=== PATIENT | male | born 1960 | race Caucasian/White ===

== ENCOUNTER 2019-12-15 05:49 | Outpatient (REF) | payer MEDICAID, SELFPAY ==
--- NOTE | 2019-12-15 10:44 | FL_ITS ---
EXAMINATION: XR FLUOROSCOPY WITH IMAGES CLINICAL INFORMATION: Spondylosis without myelopathy or radiculopathy. COMPARISON: None. TECHNIQUE: Fluoroscopy performed by Dr. Earnest Gardner. Fluoroscopy time: 1.6 minutes DAP: 17.1 Gycm2 Images: 6 FINDINGS: There are spinal needles overlying the outer aspect left neural foramen C2 and C3 and right neural foramen C2, C3, and C4. There is some contrast in the nerve sheaths and paraspinal soft tissues. No definite visible vascular communication. IMPRESSION: Fluoroscopy for pain management procedures.
== END 2019-12-15 05:50 | disposition home or self-care (01) ==
LOC: HO.RADIR 05:49
PROVIDERS: Visit Provider Anesthesiology
DX: M47.812 Spondylosis without myelopathy or radiculopathy, cervical region (principal)
CPT/HCPCS: 64490; 64491; J3300; Q9967

== ENCOUNTER → 2020-01-27 14:56 | Outpatient (BNVA) | payer MEDICAID, SELFPAY | PROVIDERS: PCP Internal Medicine; Visit Provider Anesthesiology | DX: M47.812 Spondylosis without myelopathy or radiculopathy, cervical region (principal); M17.0 Bilateral primary osteoarthritis of knee | CPT/HCPCS: 99212 ==

== ENCOUNTER 2020-02-04 13:12 | Outpatient (REF) | payer MEDICAID, SELFPAY ==
[2020-02-04 14:22] LABS: MANUAL DIFF FLAG NO
[2020-02-04 14:25] LABS: Basophils Absolute Auto 0.1 X10*3/uL (0.0-0.2); Basophils Percent Auto 0.8 % (0-2); Eosinophils Absolute Auto 0.3 X10*3/uL (0.0-0.4); Eosinophils Percent Auto 3.1 % (0-4); Hematocrit 42.9 % (42-52); Hemoglobin 14.5 g/dl (14.0-18.0); Imm Gran Abs Auto 0.16 X10*3/uL (0.00-0.03); Imm Gran Pct Auto 1.7 % (0.0-0.4); Lymphocytes Absolute Auto 2.2 X10*3/uL (1.2-4.9); Lymphocytes Percent Auto 22.9 % (20-40); Mean Corpuscular HGB Conc 33.8 g/dl (31.0-36.0); Mean Corpuscular Hemoglobin 32.2 pg (27.0-33.0); Mean Corpuscular Volume 95.1 fL (80-98); Mean Platelet Volume 9.5 fL (9.4-12.4); Monocytes Percent Auto 10.1 % (2-11); Neutrophils Absolute Auto 5.8 X10*3/uL (2.0-8.3); Neutrophils Percent Auto 61.4 % (45-73); Platelet Count 262 X10*3/uL (160-400); Red Blood Count 4.51 X10*6/uL (4.60-5.80); Red Cell Distribution Width 13.7 % (11.0-16.0); White Blood Count 9.4 X10*3/uL (4.8-10.8)
[2020-02-04 14:38] LABS: D Dimer < 200 NG/ML
[2020-02-04 14:52] LABS: Anion Gap 14 (12-20); Blood Urea Nitrogen 27 mg/dL (9-16); Carbon Dioxide 25 mmol/L (22-29); Chloride 104 mmol/L (96-108); Estimated Glomerular Filt Rate 49; Glucose Random 81 mg/dL (60-115); Potassium 4.7 mmol/l (3.3-5.1); Sodium 138 mmol/L (135-145)
[2020-02-04 15:16] LABS: SARS COV2 IgG Negative (Negative)
[2020-02-04 15:17] LABS: Erythrocyte Sedimentation Rate 40 MM/HR (0-15)
[2020-02-05 11:27] LABS: Immunoglobulin E 156 kU/L (<OR=114)
== END 2020-02-04 13:13 | disposition home or self-care (01) ==
LOC: HO.LAB 13:12
PROVIDERS: PCP Internal Medicine; Visit Provider Hospitalist
DX: G47.33 Obstructive sleep apnea (adult) (pediatric) (principal); R06.00 Dyspnea, unspecified; J32.9 Chronic sinusitis, unspecified; J45.909 Unspecified asthma, uncomplicated; R05 Cough
CPT/HCPCS: 36415; 80048; 82785; 85025; 85379; 85652; 86769; 99212

== ENCOUNTER → 2020-03-18 14:11 | Outpatient (BNVA) | payer MEDICAID, SELFPAY | PROVIDERS: PCP Internal Medicine Hypertension Specialist; Visit Provider Hospitalist | DX: J44.9 Chronic obstructive pulmonary disease, unspecified (principal); R05 Cough; J32.9 Chronic sinusitis, unspecified; G47.33 Obstructive sleep apnea (adult) (pediatric); Z99.89 Dependence on other enabling machines and devices | CPT/HCPCS: 99212 ==

== ENCOUNTER → 2020-04-26 14:55 | Outpatient (BNVA) | payer MEDICAID, SELFPAY | PROVIDERS: Visit Provider Internal Medicine Cardiovascular Disease | DX: E78.5 Hyperlipidemia, unspecified (principal) | CPT/HCPCS: 93005; 99212 ==

== ENCOUNTER 2020-07-27 12:40 | Outpatient (REF) | payer MEDICAID, SELFPAY ==
[2020-07-27 13:48] LABS: Hematocrit 44.3 % (42-52); Hemoglobin 14.8 g/dl (14.0-18.0); Mean Corpuscular HGB Conc 33.4 g/dl (31.0-36.0); Mean Corpuscular Hemoglobin 30.5 pg (27.0-33.0); Mean Corpuscular Volume 91.3 fL (80-98); Mean Platelet Volume 10.6 fL (9.4-12.4); Platelet Count 324 X10*3/uL (160-400); Red Blood Count 4.85 X10*6/uL (4.60-5.80); Red Cell Distribution Width 13.2 % (11.0-16.0); White Blood Count 10.9 X10*3/uL (4.8-10.8)
[2020-07-27 14:14] LABS: Estimated Average Glucose 123 mg/dL; Hemoglobin A1c % 5.9 %
[2020-07-27 14:42] LABS: Alanine Aminotransferase 72 U/L (0-40); Albumin Level 4.1 g/dL (3.5-5.0); Alkaline Phosphatase 59 U/L (39-117); Anion Gap 15 (12-20); Aspartate Amino Transferase 48 U/L (5-37); Bilirubin Total 0.9 mg/dL (0.0-1.0); Blood Urea Nitrogen 19 mg/dL (9-16); Calcium 9.7 mg/dL (8.4-10.2); Carbon Dioxide 23 mmol/L (22-29); Chloride 106 mmol/L (96-108); Cholesterol 141 mg/dL; Estimated Glomerular Filt Rate 49; Glucose Random 111 mg/dL (60-115); HDL Cholesterol 34 mg/dL; LDL Cholesterol Calculated 80 mg/dl; Potassium 4.7 mmol/L (3.3-5.1); Sodium 139 mmol/L (135-145); Total Protein 7.8 g/dL (6.5-8.0); Triglycerides 137 mg/dL
[2020-07-27 14:51] LABS: Thyroid Stimulating Hormone 0.98 uIU/mL (0.32-4.0)
[2020-07-27 15:11] LABS: Vitamin B12 > 2000 pg/mL (200-900)
== END 2020-07-27 12:41 | disposition home or self-care (01) ==
LOC: HO.LAB 12:40
PROVIDERS: Absent Provider Internal Medicine; PCP Internal Medicine; Visit Provider Internal Medicine Cardiovascular Disease
DX: I10 Essential (primary) hypertension (principal)
CPT/HCPCS: 36415; 80053; 80061; 82607; 83036; 84443; 85027

== ENCOUNTER 2020-07-29 14:08 | Outpatient (REF) | payer MEDICAID, SELFPAY ==
--- NOTE | ~2020-07-29 | XR_ITS ---
EXAMINATION: XR CHEST CLINICAL INFORMATION: Obstructive sleep apnea COMPARISON: None TECHNIQUE: The chest is imaged in frontal and 2 lateral views for a total of 3 views. FINDINGS: The lungs are clear. There is no airspace consolidation or groundglass opacity or effusion. The heart is normal in size. The vascularity is normal. The costophrenic sulci are clear. The hilar and mediastinal contours are unremarkable. There are mild degenerative changes thoracic spine. XR/XR chest 2V IMPRESSION: Lungs clear. Heart size normal. No acute intrathoracic disease.
[2020-07-29 16:49] LABS: MANUAL DIFF FLAG NO
[2020-07-29 17:05] LABS: Basophils Absolute Auto 0.1 X10*3/uL (0.0-0.2); Basophils Percent Auto 0.6 % (0-2); Eosinophils Absolute Auto 0.3 X10*3/uL (0.0-0.4); Hematocrit 44.9 % (42-52); Hemoglobin 14.7 g/dl (14.0-18.0); Imm Gran Abs Auto 0.09 X10*3/uL (0.00-0.03); Imm Gran Pct Auto 0.7 % (0.0-0.4); Lymphocytes Absolute Auto 3.2 X10*3/uL (1.2-4.9); Lymphocytes Percent Auto 25.2 % (20-40); Mean Corpuscular HGB Conc 32.7 g/dl (31.0-36.0); Mean Corpuscular Hemoglobin 30.5 pg (27.0-33.0); Mean Corpuscular Volume 93.2 fL (80-98); Mean Platelet Volume 10.8 fL (9.4-12.4); Monocytes Absolute Auto 1.1 X10*3/uL (0.1-1.2); Monocytes Percent Auto 8.5 % (2-11); Platelet Count 335 X10*3/uL (160-400); Red Blood Count 4.82 X10*6/uL (4.60-5.80); Red Cell Distribution Width 13.2 % (11.0-16.0); White Blood Count 12.7 X10*3/uL (4.8-10.8)
[2020-07-29 17:56] LABS: Erythrocyte Sedimentation Rate 46 MM/HR (0-15)
[2020-07-30 13:01] LABS: Immunoglobulin E 200 kU/L (<OR=114)
[2020-07-30 21:32] LABS: IgA 608 mg/dL (70-320); IgG 1351 mg/dL (600-1540); IgM 169 mg/dL (50-300)
== END 2020-07-29 14:09 | disposition home or self-care (01) ==
LOC: HO.XRAY 14:08
PROVIDERS: PCP Internal Medicine; Visit Provider Hospitalist
DX: J44.9 Chronic obstructive pulmonary disease, unspecified (principal); G47.33 Obstructive sleep apnea (adult) (pediatric); J32.9 Chronic sinusitis, unspecified; R05 Cough; Z99.89 Dependence on other enabling machines and devices
CPT/HCPCS: 36415; 71046; 82784; 82785; 85025; 85652; 87070; 87205; 99212

== ENCOUNTER 2020-08-15 10:57 | Outpatient (REF) | payer MEDICAID, SELFPAY ==
--- NOTE | ~2020-08-15 | US_ITS ---
EXAMINATION: US ABDOMEN COMPLETE CLINICAL INFORMATION: Abnormal findings of blood chemistry. COMPARISON: Ultrasound abdomen complete 10/11/2016. MRI abdomen 12/30/2013. Renal ultrasound 12/22/2013. TECHNIQUE: Real-time imaging of the abdominal viscera. FINDINGS: PANCREAS: Not visualized due to bowel gas ABDOMINAL AORTA: The proximal, mid, and distal segments are normal in caliber. INFERIOR VENA CAVA: Visualized portions are normal. LIVER: The liver is enlarged and echogenic probably representing fatty infiltration. The liver contour is normal. No focal hepatic lesion. There is no intrahepatic biliary duct dilatation seen. GALLBLADDER: There is adenomyomatosis of the gallbladder wall. No gallstones are seen. Gallbladder wall does not appear thickened. There is no pericholecystic fluid. COMMON BILE DUCT: Normal in caliber measuring 0.2 cm in diameter. RIGHT KIDNEY: Normal. No hydronephrosis. No renal calculi or focal parenchymal lesions. The kidney measures 11.2 cm in maximum dimension. LEFT KIDNEY: Normal. No hydronephrosis. No renal calculi or focal parenchymal lesions. The kidney measures 12.2 cm in maximum dimension. SPLEEN: Normal. The spleen measures 12.1 cm in maximum dimension. FREE FLUID: None. US/US abdomen complete IMPRESSION: Enlarged echogenic liver probably representing fatty infiltration. Adenomyomatosis of the gallbladder wall. Limited visualization of the pancreas.
== END 2020-08-15 10:58 | disposition home or self-care (01) ==
LOC: HO.US 10:57
PROVIDERS: Visit Provider Internal Medicine
DX: R79.89 Other specified abnormal findings of blood chemistry (principal)
CPT/HCPCS: 76700

== ENCOUNTER → 2020-08-18 11:02 | Outpatient (BNVA) | payer MEDICAID, SELFPAY | PROVIDERS: PCP Internal Medicine; Referring Provider Internal Medicine; Visit Provider Internal Medicine Cardiovascular Disease | DX: E78.5 Hyperlipidemia, unspecified (principal); R06.00 Dyspnea, unspecified; J44.9 Chronic obstructive pulmonary disease, unspecified; J45.901 Unspecified asthma with (acute) exacerbation; G47.33 Obstructive sleep apnea (adult) (pediatric); F17.210 Nicotine dependence, cigarettes, uncomplicated; Z99.89 Dependence on other enabling machines and devices | CPT/HCPCS: 99212 ==

== ENCOUNTER → 2020-08-30 13:12 | Outpatient (BNVA) | payer MEDICAID, SELFPAY | PROVIDERS: PCP Internal Medicine; Visit Provider Hospitalist | DX: G47.33 Obstructive sleep apnea (adult) (pediatric) (principal); J44.9 Chronic obstructive pulmonary disease, unspecified; J32.9 Chronic sinusitis, unspecified; R05 Cough; Z99.89 Dependence on other enabling machines and devices | CPT/HCPCS: 99212 ==

== ENCOUNTER 2020-10-07 13:13 | Outpatient (REF) | payer MEDICAID, SELFPAY ==
[2020-10-07 15:16] LABS: MANUAL DIFF FLAG NO
[2020-10-07 15:22] LABS: Basophils Absolute Auto 0.1 X10*3/uL (0.0-0.2); Basophils Percent Auto 0.5 % (0-2); Eosinophils Absolute Auto 0.2 X10*3/uL (0.0-0.4); Eosinophils Percent Auto 1.6 % (0-4); Hematocrit 44.5 % (42-52); Hemoglobin 14.9 g/dl (14.0-18.0); Imm Gran Abs Auto 0.05 X10*3/uL (0.00-0.03); Imm Gran Pct Auto 0.4 % (0.0-0.4); Lymphocytes Absolute Auto 2.1 X10*3/uL (1.2-4.9); Lymphocytes Percent Auto 17.1 % (20-40); Mean Corpuscular HGB Conc 33.5 g/dl (31.0-36.0); Mean Corpuscular Hemoglobin 30.2 pg (27.0-33.0); Mean Corpuscular Volume 90.3 fL (80-98); Mean Platelet Volume 10.4 fL (9.4-12.4); Monocytes Absolute Auto 1.2 X10*3/uL (0.1-1.2); Neutrophils Absolute Auto 8.6 X10*3/uL (2.0-8.3); Neutrophils Percent Auto 70.4 % (45-73); Platelet Count 280 X10*3/uL (160-400); Red Blood Count 4.93 X10*6/uL (4.60-5.80); Red Cell Distribution Width 14.1 % (11.0-16.0); White Blood Count 12.2 X10*3/uL (4.8-10.8)
[2020-10-07 16:09] LABS: Erythrocyte Sedimentation Rate 34 MM/HR (0-15)
[2020-10-10 19:16] LABS: Immunoglobulin E 172 kU/L (<OR=114)
== END 2020-10-07 13:14 | disposition home or self-care (01) ==
LOC: HO.LAB 13:13
PROVIDERS: PCP Internal Medicine; Visit Provider Hospitalist
DX: J44.9 Chronic obstructive pulmonary disease, unspecified (principal); G47.33 Obstructive sleep apnea (adult) (pediatric); F17.210 Nicotine dependence, cigarettes, uncomplicated; Z99.89 Dependence on other enabling machines and devices; J30.9 Allergic rhinitis, unspecified
CPT/HCPCS: 36415; 82785; 85025; 85652; 99212

== ENCOUNTER 2020-12-09 12:52 | Outpatient (REF) | payer MEDICAID, SELFPAY ==
[2020-12-09 14:01] LABS: MANUAL DIFF FLAG NO
[2020-12-09 14:19] LABS: Basophils Percent Auto 0.5 % (0-2); Eosinophils Absolute Auto 0.1 X10*3/uL (0.0-0.4); Eosinophils Percent Auto 1.3 % (0-4); Hematocrit 42.7 % (42-52); Hemoglobin 14.2 g/dl (14.0-18.0); Imm Gran Pct Auto 1.3 % (0.0-0.4); Lymphocytes Percent Auto 26.4 % (20-40); Mean Corpuscular HGB Conc 33.3 g/dl (31.0-36.0); Mean Corpuscular Hemoglobin 30.6 pg (27.0-33.0); Mean Platelet Volume 9.9 fL (9.4-12.4); Monocytes Absolute Auto 0.7 X10*3/uL (0.1-1.2); Monocytes Percent Auto 8.6 % (2-11); Neutrophils Absolute Auto 4.8 X10*3/uL (2.0-8.3); Neutrophils Percent Auto 61.9 % (45-73); Platelet Count 253 X10*3/uL (160-400); Red Blood Count 4.64 X10*6/uL (4.60-5.80); Red Cell Distribution Width 14.2 % (11.0-16.0); White Blood Count 7.7 X10*3/uL (4.8-10.8)
[2020-12-09 14:43] LABS: Cholesterol 203 mg/dL; HDL Cholesterol 35 mg/dL; LDL Cholesterol Calculated 140 mg/dl; Triglycerides 142 mg/dL
[2020-12-09 15:05] LABS: Erythrocyte Sedimentation Rate 40 MM/HR (0-15)
[2020-12-11 08:02] LABS: SARS COV2 IgG Negative (Negative)
[2020-12-14 20:36] LABS: Immunoglobulin G Subclass 1 856 mg/dL (382-929); Immunoglobulin G Subclass 2 159 mg/dL (241-700); Immunoglobulin G Subclass 3 57 mg/dL (22-178); Immunoglobulin G Subclass 4 31.6 mg/dL (4-86); Immunoglobulin G Total 1279 mg/dL (600-1540)
== END 2020-12-09 12:53 | disposition home or self-care (01) ==
LOC: HO.LAB 12:52
PROVIDERS: Absent Provider Internal Medicine Cardiovascular Disease; PCP Internal Medicine; Visit Provider Hospitalist
DX: Z20.822 Contact with and (suspected) exposure to COVID-19 (principal); G47.33 Obstructive sleep apnea (adult) (pediatric); J44.9 Chronic obstructive pulmonary disease, unspecified; E78.5 Hyperlipidemia, unspecified; J32.9 Chronic sinusitis, unspecified; J45.40 Moderate persistent asthma, uncomplicated; R05.9 Cough, unspecified; Z99.89 Dependence on other enabling machines and devices
CPT/HCPCS: 36415; 80061; 82784; 85025; 85210; 85652; 86769; 99212

== ENCOUNTER 2021-08-07 13:18 | Outpatient (REF) | payer MEDICAID, SELFPAY ==
[2021-08-07 14:49] LABS: Cholesterol 179 mg/dL; HDL Cholesterol 32 mg/dL; LDL Cholesterol Calculated 127 mg/dl; Triglycerides 104 mg/dL
== END 2021-08-07 13:19 | disposition home or self-care (01) ==
LOC: HO.LAB 13:18
PROVIDERS: PCP Internal Medicine; Visit Provider Internal Medicine Cardiovascular Disease
DX: E78.5 Hyperlipidemia, unspecified (principal)
CPT/HCPCS: 36415; 80061

== ENCOUNTER → 2021-11-06 11:01 | Outpatient (BNVA) | payer MEDICAID, SELFPAY | PROVIDERS: PCP Internal Medicine; Visit Provider Hospitalist | DX: G47.33 Obstructive sleep apnea (adult) (pediatric) (principal); J44.9 Chronic obstructive pulmonary disease, unspecified; J30.9 Allergic rhinitis, unspecified; R05.9 Cough, unspecified; Z79.899 Other long term (current) drug therapy; Z99.89 Dependence on other enabling machines and devices; Z23 Encounter for immunization | CPT/HCPCS: 90471; 90732; 99212 ==

== ENCOUNTER 2022-01-01 11:34 | Outpatient (REF) | payer MEDICAID, SELFPAY ==
[2022-01-01 12:13] LABS: Estimated Average Glucose 103 mg/dL; Hemoglobin A1c % 5.2 %
[2022-01-01 12:22] LABS: Cholesterol 208 mg/dL; HDL Cholesterol 43 mg/dL; LDL Cholesterol Calculated 149 mg/dl; Triglycerides 82 mg/dL
[2022-01-03 10:02] LABS: CRP High Sensitivity 2.5 mg/L
== END 2022-01-01 11:35 | disposition home or self-care (01) ==
LOC: HO.LAB 11:34
PROVIDERS: PCP Internal Medicine; Visit Provider Internal Medicine Cardiovascular Disease
DX: I25.10 Atherosclerotic heart disease of native coronary artery without angina pectoris (principal); E78.5 Hyperlipidemia, unspecified
CPT/HCPCS: 36415; 80061; 83036; 86141

== ENCOUNTER → 2022-01-08 12:24 | Outpatient (BNVA) | payer MEDICAID, SELFPAY | PROVIDERS: PCP Internal Medicine; Referring Provider Internal Medicine; Visit Provider Internal Medicine Cardiovascular Disease | DX: E78.5 Hyperlipidemia, unspecified (principal) | CPT/HCPCS: 93005; 99212 ==

== ENCOUNTER 2022-01-22 11:11 | Outpatient (REF) | payer MEDICAID, SELFPAY ==
[2022-01-22 12:14] LABS: Anion Gap 12 (12-20); Blood Urea Nitrogen 29 mg/dL (9-16); Calcium 9.2 mg/dL (8.4-10.2); Carbon Dioxide 27 mmol/L (22-29); Chloride 105 mmol/L (96-108); Estimated Glomerular Filt Rate 52; Glucose Random 92 mg/dL (60-115); Potassium 4.9 mmol/L (3.3-5.1); Sodium 139 mmol/L (135-145)
== END 2022-01-22 11:12 | disposition home or self-care (01) ==
LOC: HO.LAB 11:11
PROVIDERS: Visit Provider Internal Medicine
DX: R73.9 Hyperglycemia, unspecified (principal)
CPT/HCPCS: 36415; 80048

== ENCOUNTER 2022-03-20 15:17 | Outpatient (REF) | payer MEDICAID, SELFPAY ==
--- NOTE | ~2022-03-20 | XR_ITS ---
EXAMINATION: XR CHEST CLINICAL INFORMATION: J44.9 - Chronic obstructive pulmonary disease, unspecified COMPARISON: Chest radiographs 07/29/2020 TECHNIQUE: 2 views of the chest were obtained. FINDINGS: Subsegmental atelectasis left base adjacent to cardiac apex. Heart size normal. Vascularity normal. No lobar or segmental airspace consolidation, groundglass opacity, or effusion. The hilar and mediastinal contours are normal. No acute bony abnormality. XR/XR chest 2V IMPRESSION: Subsegmental atelectasis left base. Lungs otherwise clear.
== END 2022-03-20 15:18 | disposition home or self-care (01) ==
LOC: HO.XRAY 15:17
PROVIDERS: PCP Internal Medicine; Visit Provider Hospitalist
DX: J44.9 Chronic obstructive pulmonary disease, unspecified (principal)
CPT/HCPCS: 71046

== ENCOUNTER 2022-09-11 13:08 | Outpatient (AMB) | payer MEDICAID, SELFPAY ==
[2022-09-11 13:21] VITALS: BP 120/82; PULSE 69; TEMP 37.2; O2SAT 97; BMI 39.7
--- NOTE | 2022-09-11 13:21 | MHC.OFFVIS ---
Intake Vital Signs 09/11/22 13:21 Height 5 ft 11 in Weight 285 lb BMI 39.7 BP 120/82 Blood Pressure Location Lt brachial Position Standing Pulse 69 Pulse Source Pulse Oximeter Temp 99 F Temp Source Temporal Artery Scan Pulse Oximetry (%) 97 Oxygen Delivery Method Room Air Intake Visit Reasons: Shortness of breath Intake Note: pt is here for follow up Allergies Seasonal Allergies Allergy (Verified 03/20/22 14:11) Runny Nose HPI HPI Comments History of Present Illness Details The patient is a 62-year-old gentleman known sleep apnea currently on ASV, allergic rhinitis and also asthma. The patient does use a nasal pillow mask with a chinstrap. Therapy has been affecting beneficial. He does get supplies through his [employer] company [employer]. I will request a download from [employer] at this time. In the meantime he does complaint of a cough which is moderate severity in productive of sputum. He does have nasal congestion and does get allergy shots for allergic rhinitis. He has been using Flonase and has been helpful. He also takes Zyrtec and also had been on singular. Patient also complains of dyspnea on exertion. He does have a rescue inhaler but he does not have to use it. He was supposed to have pulmonary function studies but ultimately canceled. Will have to reschedule them prior to his next visit. I did provide him with the N30 mask that he can trial and see if is effective for him. Hopefully this with minimize irritation to the nostrils. 02/04/2020 the patient is here for pulmonary follow-up visit. The patient has been complaining of worsening cough and shortness of breath. He is very concerned with the coughing spells because they have been significant. He states that he was driving to the [facility] and he had a coughing spell had to pullman clerk and his face turn already and could not stop coughing. He is having hard time expectorating. He also complains of sinus discomfort. Denies any fevers or chills. Denies anybody with COVID-19 infection around him. He has also been complaining of right knee pain and swelling. He did see the physician and there concern for potential Dumont cyst. Has not had an ultrasound of the leg just an x-ray. In the meantime with his ongoing respiratory symptoms be reasonable just to check a D-dimer to make sure that he is not having any thromboembolic disease. The patient continues uses PAP therapy. He is tolerating it well. He uses it every night for more than 4 hours a night. The therapy has been affecting beneficial. 03/18/2020 the patient is here for pulmonary follow-up visit. He continues to complain about his cough. It is congested with mucus. Moderate severity. The respiratory medication has not been helping. Is affecting his quality of life. She also feels sinus congestion and sinus pressure. He had taking antibiotic without any significant improvement proven. He is wondering if he could try a different antibiotic at this time. He feels the mucus coming from his sinuses but also from his chest. He continues uses CPAP therapy. The CPAP therapy continues to be affecting beneficial. He does use for more than 4 hours a night. At this point will be a great candidate for Daliresp. The patient has had multiple courses of prednisone and also does have evidence of chronic bronchitis. I am hopeful that the use of Daliresp at a lower dose will be better tolerated for him without significant GI side effects. Investigate is we can slowly increase to the full dose. The patient also be treated for sinusitis. Will try to avoid prednisone. At this point the patient has been having some increased wheezing and would benefit from prednisone but hopefully with the initiation of Daliresp his need for prednisone with decreased. 07/29/2020 the patient is here for pulmonary follow-up visit. Overall his cough has improved some. Although, he still complaining of a moderately severe productive cough with white phlegm. He has been using Mucinex fxld-qyi-znosyqg with partial resolution. He continues on the allergy medicine. Continues to have significant postnasal drip. He did start Daliresp in now currently taking the full dose and tolerating it well. Previously his laboratory data demonstrated an elevated IgE level and therefore his symptoms may be allergic in nature. For the coughing is affecting his ability to use the CPAP. Therefore will maximize his therapy with azithromycin for chronic bronchitis. Will also request an Acapella valve for an additional CPT. In the office we did have him use Xopenex with hypertonic saline to see if that was more effective. Octaviano to tolerated well. We did try to send a sputum culture however it was contaminated with too much saliva. 12/09/2020 the patient is here for a pulmonary follow-up visit. Overall he is doing better. His cough seems to be better controlled on the current therapy. Seems to be responding well to the Sudafed. Does having upper airway cough syndrome. In addition to that is being treated for chronic bronchitis with the help of the Daliresp. He is also losing weight which is been helpful. We did talk about his reflux diet that is likely also affecting his cough. I emphasized the importance of him to limit the foods and drinks that could be worsening any reflux disease. In addition to that we did review his blood work demonstrating an elevated IgE. He is concerned that he could been exposed to somebody with COVID 19 so therefore I will request some blood work. I will recheck his elevated white count sedimentation rate and recheck his COVID-19 IgG. 11/06/2021 the patient is here for a pulmonary follow-up visit. Overall he is doing about the same. Continues to have a chronic productive cough. Moderate severity. Sometimes difficult to expectorate. The nebulized therapy with albuterol and hypertonic saline does help try to clear the mucus. He also uses the Neti bottle. This also helps with upper airway hygiene. In addition to that the azithromycin has been effective for him as well. He has been off it now for 4-6 months which is reassuring. However his cough is starting to get worse consistent with chronic bronchitis. His last EKG was back about year ago demonstrating normal QT interval. The patient is aware that as he goes back on the azithromycin he needs to have an EKG done and also need for him to come back for chest x-ray. He continues on the Advair with good effects. He is rinsing his mouth. He has also had a significant amount of weight loss. I did encourage for him to increase his physical activity outside of the home. In the meantime the CPAP therapy continues to be affecting beneficial. He does uses CPAP more than 4 hours a night. 09/11/2022 the patient is here for a pulmonary follow-up visit. The patient has been having hard time with sinuses for the last 3-4 weeks. He feels significant congestion and also sinus pressure. He has taken zkux-ujp-qijwvwq therapies in addition to nasal rinsing without a significant improvement. He has been on the azithromycin 3 times a week. The patient also complains of a cough secondary to the postnasal drip. His breathing otherwise has been okay as of now. The patient denies any fevers or chills. We did check his temperature today was 99 degrees. He already tested for COVID which was negative. This point the patient will be treated for sinusitis. Start with antibiotics in addition to Afrin flpl-bvs-pjhwdtv nasal spray. If he has no better he can start some prednisone. Also to note he did have chest x-ray back in 03/16/2019 demonstrating no acute lung pathology. Consider getting a sinus x-ray if he has no better. In the meantime he continues uses CPAP. CPAP therapy continues to be affecting beneficial. He does use it for more than 4 hours a night. He actually can not sleep without it. [facility] Medical History (Updated 04/03/22 @ 12:53 by Stephen Bahena MD) Asthma Asthma-COPD overlap syndrome Atelectasis Chronic allergic rhinitis Chronic cough Chronic kidney disease, stage 3 (~09/22/17) Chronic pain syndrome (~11/20/16) Cough Dyspnea Erectile dysfunction (~11/24/12) Hypercholesterolemia (~07/14/12) Hyperlipidemia Hypertension (~07/14/12) Low back pain (~07/14/12) Obstructive sleep apnea syndrome (~01/04/10) JENN on CPAP Osteoarthritis of knees, bilateral Osteoporosis (~09/20/17) Sciatica (~11/24/12) Senile hyperkeratosis (~02/21/18) Sinusitis Spondylosis of cervical joint without myelopathy Tobacco dependence syndrome (~01/13/22) Surgical History History of colonoscopy (~10/16/21) Family History Father Parkinson disease Mother Sister Obesity Hypertension Social History Household Members: Spouse Housing: House Patient Tobacco Use Status: Former Tobacco user Tobacco use type: Cigarette Cigarette Packs Per Day: 1 Years Smoked: 30 years service: No Current occupational status: unemployed Review of Systems Const Denies night sweats and Reports weight loss ENT Denies change in voice, Denies lip swelling, Denies mouth pain, Reports nasal congestion, Reports nasal discharge and Denies tongue swelling Card Denies chest pain and Reports dyspnea on exertion Resp Reports chest congestion, Reports cough and Reports dyspnea on exertion GI Denies abdominal pain Musc Reports joint swelling and Reports limited range of motion Neuro Denies Neuro-related abnormal movements Psych Denies no additional complaints Sheldon/Lymph Denies easy bleeding and Denies lymphadenopathy Aller/Immun Denies lip swelling and Denies tongue swelling Physical Exam Vital Signs: Last Vital Signs Temp 99 F 09/11/22 13:21 Pulse 69 09/11/22 13:21 BP 120/82 09/11/22 13:21 Pulse Ox 97 09/11/22 13:21 Oxygen Delivery Method Room Air 09/11/22 13:21 BMI result Body Mass Index 39.7 HEENT Head: Yes normocephalic General nose exam: Abnormal mucous membranes and turbinates present erythematous and Nasal discharge present purulent and mucoid Throat: Yes postnasal drainage and Yes cobblestoning Eyes Alignment and Position: alignment normal Pupils: Equal, round and reactive pupils present Neck Neck: Yes normal visual inspection, Yes full ROM and Yes no lymphadenopathy Chest Chest palpation & inspection: normal inspection of the chest Resp Auscultation: no wheezes and diminished lung sounds Cardio Rate: regular rate Rhythm: regular rhythm Heart sounds: S1 normal heart sound present and S2 normal heart sound present GI Palpation (GI): Soft to palpation and nontender Auscultation: normal bowel sounds Skin General skin exam: rashes and/or lesions noted Neuro Cranial nerves: Yes Equal, round and reactive pupils present Assessment & Plan Assessment & Plan (1) JENN on CPAP: Code(s): G47.33 - Obstructive sleep apnea (adult) (pediatric); Z99.89 - Dependence on other enabling machines and devices (2) Asthma-COPD overlap syndrome: Code(s): J44.9 - Chronic obstructive pulmonary disease, unspecified (3) Cough: Code(s): R05 - Cough (4) Chronic allergic rhinitis: Code(s): J30.9 - Allergic rhinitis, unspecified Plan CPT with nebulized therapy followed by hypertonic saline continue antihistamine and Singulair continue PAP therapy okay to use it without humidification reflux diet holding azithromycin MWF, will need EKG start Augmentin start Prednisone if no better Continue Dalires follow-up6 month Medications: New amoxicillin-pot clavulanate 875-125 mg 1 tab PO BID 14 days 28 tabs 0RF codeine-guaifenesin 10-100 mg/5 mL 10 mL PO Q6H 10 days PRN 300 mL 0RF cough roflumilast (Daliresp) 500 mcg PO DAILY 90 days 90 tabs 3RF prednisone PO daily; Take 2 tabs daily x 5 days, then 1 tablet daily x 5 days 10 days 15 tabs 0RF Refilled albuterol sulfate 2.5 mg (3 mL) inhalation Q4H 90 days PRN 540 mL 3RF shortness of breath or wheezing Coding Level of Care Code Est Pt Level 4 (54382) Diagnoses JENN on CPAP G47.33; Z99.89 Asthma-COPD overlap syndrome J44.9 Cough R05 Chronic allergic rhinitis J30.9 Time Spent (min) 19
== END 2022-09-11 13:48 | disposition home or self-care (01) ==
PROVIDERS: PCP Family Medicine; Visit Provider Hospitalist
DX: G47.33 Obstructive sleep apnea (adult) (pediatric) (principal); Z99.89 Dependence on other enabling machines and devices; J44.9 Chronic obstructive pulmonary disease, unspecified; J30.9 Allergic rhinitis, unspecified
CPT/HCPCS: 99214

== ENCOUNTER → 2022-09-11 13:08 | Outpatient (BNVA) | payer MEDICAID, SELFPAY | PROVIDERS: Visit Provider Hospitalist | DX: J44.9 Chronic obstructive pulmonary disease, unspecified (principal); J30.9 Allergic rhinitis, unspecified; R06.02 Shortness of breath; R05.9 Cough, unspecified; G47.33 Obstructive sleep apnea (adult) (pediatric); Z99.89 Dependence on other enabling machines and devices | CPT/HCPCS: 99212 ==

== ENCOUNTER 2022-10-09 12:01 | Outpatient (REF) | payer MEDICAID, SELFPAY ==
[2022-10-09 15:32] LABS: Anion Gap 15 (12-20); Blood Urea Nitrogen 24 mg/dL (9-16); Calcium 9.5 mg/dL (8.4-10.2); Carbon Dioxide 26 mmol/L (22-29); Chloride 106 mmol/L (96-108); Estimated Glomerular Filt Rate 47; Glucose Random 82 mg/dL (60-115); Potassium 4.6 mmol/L (3.3-5.1); Sodium 142 mmol/L (135-145)
[2022-10-09 15:36] LABS: Thyroid Stimulating Hormone 2.25 uIU/mL (0.32-4.0)
[2022-10-10 03:46] LABS: HBS Num1 0.41 mIU/mL (0-7.99); HBc Num1 0.05 S/CO (0.00-0.79); HBsAGNum1 0.36 S/CO (0.00-0.99); Hepatitis B Core Antibody Nonreactive (Nonreactive); Hepatitis B Surface Antigen Negative (Negative); ~Hepatitis B Surface Antibody NONREACTIVE (Nonreactive)
== END 2022-10-09 12:02 | disposition home or self-care (01) ==
LOC: HO.CHCLNP 12:01
PROVIDERS: Visit Provider Internal Medicine
DX: Z01.818 Encounter for other preprocedural examination (principal); Z13.89 Encounter for screening for other disorder
CPT/HCPCS: 36415; 80048; 84443; 86704; 86706; 87340

== ENCOUNTER 2022-12-13 14:15 | Outpatient (REF) | payer MEDICAID, SELFPAY ==
[2022-12-13 17:48] LABS: Hemoglobin 14.9 g/dl (14.0-18.0); Mean Corpuscular HGB Conc 33.1 g/dl (31.0-36.0); Mean Corpuscular Volume 96.8 fL (80.0-98.0); Mean Platelet Volume 10.3 fL (9.4-12.4); Platelet Count 302 X10*3/uL (160-400); Red Blood Count 4.65 X10*6/uL (4.60-5.80); Red Cell Distribution Width 13.9 % (11.0-16.0)
[2022-12-13 18:03] LABS: Alanine Aminotransferase 53 U/L (0-40); Albumin Level 3.7 g/dL (3.5-5.0); Alkaline Phosphatase 61 U/L (39-117); Aspartate Amino Transferase 26 U/L (5-37); Bilirubin Direct 0.3 mg/dL (0.0-0.5); Bilirubin Total 0.9 mg/dL (0.0-1.0); Total Protein 7.5 g/dL (6.5-8.0)
[2022-12-13 18:09] LABS: Band Neutrophils Percent 1 % (3-5); Eosinophils Absolute Manual 0.3 X10*3/uL (0.0-0.4); Eosinophils Percent Manual 3 % (0-4); Lymphocytes Absolute Manual 2.3 X10*3/uL (1.2-4.9); Lymphocytes Percent Manual 21 % (20-40); Monocytes Absolute Manual 1.3 X10*3/uL (0.1-1.2); Monocytes Percent Manual 12 % (2-11); Neutrophils Percent Manual 63 % (45-73)
[2022-12-13 18:11] LABS: Platelet Estimate NORMAL (NORMAL); Platelet Morphology Comment NORMAL; RBC Morphology NORMAL
== END 2022-12-13 14:16 | disposition home or self-care (01) ==
LOC: HO.CHCLDS 14:15
PROVIDERS: Visit Provider Internal Medicine
DX: Z01.818 Encounter for other preprocedural examination (principal)
CPT/HCPCS: 36415; 80076; 85007; 85027

== ENCOUNTER 2023-05-17 12:55 | Outpatient (AMB) | payer MEDICARE, SELFPAY ==
--- NOTE | 2023-05-17 13:08 | MHC.OFFVIS ---
Intake Vital Signs 05/17/23 13:09 Height 5 ft 11 in Weight 264 lb 8.875 oz BMI 36.9 BP 122/82 Blood Pressure Location Lt brachial Position Sitting Pulse 70 Pulse Source Pulse Oximeter Pulse Oximetry (%) 98 Oxygen Delivery Method Room Air Intake Visit Reasons: Obstructive sleep apnea Tobacco Prevention Health Educator Required: No Allergies Seasonal Allergies Allergy (Verified 05/17/23 13:12) Runny Nose HPI HPI Comments History of Present Illness Details The patient is a 63-year-old gentleman known sleep apnea currently on ASV, allergic rhinitis and also asthma. The patient does use a nasal pillow mask with a chinstrap. Therapy has been affecting beneficial. He does get supplies through his [employer] company [employer]. I will request a download from [employer] at this time. In the meantime he does complaint of a cough which is moderate severity in productive of sputum. He does have nasal congestion and does get allergy shots for allergic rhinitis. He has been using Flonase and has been helpful. He also takes Zyrtec and also had been on singular. Patient also complains of dyspnea on exertion. He does have a rescue inhaler but he does not have to use it. He was supposed to have pulmonary function studies but ultimately canceled. Will have to reschedule them prior to his next visit. I did provide him with the N30 mask that he can trial and see if is effective for him. Hopefully this with minimize irritation to the nostrils. 09/11/2022 the patient is here for a pulmonary follow-up visit. The patient has been having hard time with sinuses for the last 3-4 weeks. He feels significant congestion and also sinus pressure. He has taken uqdj-vqj-kbynfhm therapies in addition to nasal rinsing without a significant improvement. He has been on the azithromycin 3 times a week. The patient also complains of a cough secondary to the postnasal drip. His breathing otherwise has been okay as of now. The patient denies any fevers or chills. We did check his temperature today was 99 degrees. He already tested for COVID which was negative. This point the patient will be treated for sinusitis. Start with antibiotics in addition to Afrin gfdf-uhc-jlusjas nasal spray. If he has no better he can start some prednisone. Also to note he did have chest x-ray back in 03/16/2019 demonstrating no acute lung pathology. Consider getting a sinus x-ray if he has no better. In the meantime he continues uses CPAP. CPAP therapy continues to be affecting beneficial. He does use it for more than 4 hours a night. He actually can not sleep without it. 05/17/2023 the patient is here for a pulmonary follow-up visit. He has multiple complaints. Again complaining of no sinus congestion and pressure. Second sinusitis is coming back. He typically responds well to Augmentin. He knows to stop the azithromycin if he is going to take Augmentin. The patient will need to call the office her see ENT if he continues to have persistent sinusitis issues. in the meantime the patient complains of extremity weakness. Denies any muscle pains. Just feels weak having some difficulty even getting up from the toilet. The patient also had a fall landing on his left side. He does have some pleuritic left-sided discomfort. He will have a rib series. He will be talking to his primary care doctor soon About his weakness and fall.. He does take statins. Will go ahead and check a CPK specially since going to get blood work but he needs to follow-up with his primary care doctor and should benefit from referral to physiatry Neurology. He will talk to his primary care doctor about that. Regards to the CPAP that continues to be affecting beneficial. He continues use it every night for more than 4 hours a night. [facility] Medical History (Updated 05/19/23 @ 22:50 by Stephen Bahena MD) Weakness Chest pain Atelectasis Tobacco dependence syndrome (~01/13/22) Senile hyperkeratosis (~02/21/18) Sciatica (~11/24/12) Osteoporosis (~09/20/17) Obstructive sleep apnea syndrome (~01/04/10) Low back pain (~07/14/12) Hypertension (~07/14/12) Erectile dysfunction (~11/24/12) Hypercholesterolemia (~07/14/12) Chronic kidney disease, stage 3 (~09/22/17) Chronic pain syndrome (~11/20/16) Chronic cough Chronic allergic rhinitis Hyperlipidemia JENN on CPAP Asthma-COPD overlap syndrome Dyspnea Cough Asthma Sinusitis Osteoarthritis of knees, bilateral Spondylosis of cervical joint without myelopathy Surgical History History of colonoscopy (~10/16/21) Family History Father Parkinson disease Mother Sister Obesity Hypertension Social History Household Members: Spouse Housing: House Patient Tobacco Use Status: Former Tobacco user Tobacco use type: Cigarette Cigarette Packs Per Day: 1 Years Smoked: 30 years service: No Current occupational status: unemployed Review of Systems Const Denies night sweats and Reports weight loss ENT Denies change in voice, Denies lip swelling, Denies mouth pain, Reports nasal congestion, Reports nasal discharge, Reports sinus pain, Reports sinus pressure and Denies tongue swelling Card Reports dyspnea on exertion Resp Reports chest congestion, Reports cough, Reports pain on inspiration, Reports pain with cough and Reports dyspnea on exertion GI Denies abdominal pain Musc Reports abnormal gait, Reports joint swelling, Reports limited range of motion and Reports muscle weakness Neuro Denies Neuro-related abnormal movements and Reports abnormal gait Psych Denies no additional complaints Sheldon/Lymph Denies easy bleeding and Denies lymphadenopathy Aller/Immun Denies lip swelling and Denies tongue swelling Physical Exam Vital Signs: Last Vital Signs Pulse 70 05/17/23 13:09 BP 122/82 05/17/23 13:09 Pulse Ox 98 05/17/23 13:09 Oxygen Delivery Method Room Air 05/17/23 13:09 BMI result Body Mass Index 36.9 HEENT Head: Yes normocephalic General nose exam: Abnormal mucous membranes and turbinates present erythematous and Nasal discharge present purulent and mucoid Throat: Yes postnasal drainage and Yes cobblestoning Eyes Alignment and Position: alignment normal Pupils: Equal, round and reactive pupils present Neck Neck: Yes normal visual inspection, Yes full ROM and Yes no lymphadenopathy Chest Chest palpation & inspection: no crepitus and tenderness rib (left lower chest) Resp Auscultation: no wheezes and diminished lung sounds Cardio Rate: regular rate Rhythm: regular rhythm Heart sounds: S1 normal heart sound present and S2 normal heart sound present GI Palpation (GI): Soft to palpation and nontender Auscultation: normal bowel sounds Skin General skin exam: rashes and/or lesions noted Neuro Cranial nerves: Yes Equal, round and reactive pupils present Assessment & Plan Assessment & Plan (1) JENN on CPAP: Code(s): G47.33 - Obstructive sleep apnea (adult) (pediatric); Z99.89 - Dependence on other enabling machines and devices (2) Asthma-COPD overlap syndrome: Code(s): J44.9 - Chronic obstructive pulmonary disease, unspecified (3) Cough: Code(s): R05 - Cough Qualifiers: Cough type: chronic Qualified Code(s): R05.3 - Chronic cough (4) Chronic allergic rhinitis: Code(s): J30.9 - Allergic rhinitis, unspecified (5) Weakness: Code(s): R53.1 - Weakness (6) Sinusitis: Code(s): J32.9 - Chronic sinusitis, unspecified Qualifiers: Sinusitis location: unspecified location Chronicity: subacute Qualified Code(s): J01.90 - Acute sinusitis, unspecified (7) Chest pain: Comment: post fall on his left side Code(s): R07.9 - Chest pain, unspecified Qualifiers: Chest pain type: intercostal pain Qualified Code(s): R07.82 - Intercostal pain Plan CPT with nebulized therapy followed by hypertonic saline continue antihistamine and Singulair continue PAP therapy okay to use it without humidification reflux diet holding azithromycin MWF, will need EKG Continue Dalires follow-up6 month Orders: Orders CK, Total+Isoenzymes, Serum 05/17/23 R53.1 - Weakness XR ribs LT min 3V w CXR1V 05/17/23 R07.9 - Chest pain, unspecified Erythrocyte Sedimentation Rate 05/17/23 R07.9 - Chest pain, unspecified Medications: New amoxicillin-pot clavulanate 875-125 mg 1 tab PO BID 14 days 28 tabs 0RF amoxicillin-pot clavulanate 875-125 mg 1 tab PO BID 14 days 28 tabs 0RF Refilled codeine-guaifenesin 10-100 mg/5 mL 10 mL PO Q6H 10 days PRN 300 mL 0RF cough Coding Level of Care Code Est Pt Level 4 (61862) Diagnoses JENN on CPAP G47.33; Z99.89 Asthma-COPD overlap syndrome J44.9 Chronic cough R05.3 Cough type: chronic Chronic allergic rhinitis J30.9 Weakness R53.1 Subacute sinusitis, unspecified location J01.90 Sinusitis location: unspecified location Chronicity: subacute Intercostal pain R07.82 Chest pain type: intercostal pain Time Spent (min) 17
[2023-05-17 13:09] VITALS: BP 122/82; PULSE 70; O2SAT 98; BMI 36.9
== END 2023-05-17 13:36 | disposition home or self-care (01) ==
PROVIDERS: PCP Family Medicine; Visit Provider Hospitalist
DX: G47.33 Obstructive sleep apnea (adult) (pediatric) (principal); Z99.89 Dependence on other enabling machines and devices; J44.9 Chronic obstructive pulmonary disease, unspecified; R05.3 Chronic cough; J30.9 Allergic rhinitis, unspecified; R53.1 Weakness; J01.90 Acute sinusitis, unspecified; R07.82 Intercostal pain
CPT/HCPCS: 99214

== ENCOUNTER 2023-05-17 12:55 | Outpatient (REF) | payer MEDICARE, SELFPAY ==
[2023-05-17 14:12] LABS: MANUAL DIFF FLAG NO
[2023-05-17 15:12] LABS: Basophils Percent Auto 0.3 % (0-2); Eosinophils Absolute Auto 0.2 X10*3/uL (0.0-0.4); Eosinophils Percent Auto 2.2 % (0-4); Hemoglobin 15.5 g/dl (14.0-18.0); Imm Gran Abs Auto 0.22 X10*3/uL (0.00-0.03); Imm Gran Pct Auto 2.2 % (0.0-0.4); Mean Corpuscular Hemoglobin 31.5 pg (27.0-33.0); Mean Corpuscular Volume 95.5 fL (80.0-98.0); Mean Platelet Volume 9.9 fL (9.4-12.4); Monocytes Absolute Auto 0.8 X10*3/uL (0.1-1.2); Monocytes Percent Auto 8.2 % (2-11); Neutrophils Absolute Auto 6.7 x10*3/uL (2.0-8.3); Neutrophils Percent Auto 67.1 % (45-73); Platelet Count 224 X10*3/uL (160-400); Red Blood Count 4.92 X10*6/uL (4.60-5.80); Red Cell Distribution Width 13.5 % (11.0-16.0)
[2023-05-17 15:24] LABS: Appearance Urine Clear; Color Urine Yellow; Glucose Urine UA Negative (Negative); Leukocyte Esterase Urine Negative (Negative); Nitrite Urine Negative (Negative); PH 5.5 (5.0-9.0); Urine Blood Negative (Negative); Urine Ketones Negative (Negative); Urine Protein Trace mg/dL (Neg-Trace)
[2023-05-17 15:55] LABS: Alanine Aminotransferase 42 U/L (0-40); Albumin Level 3.7 g/dL (3.5-5.0); Alkaline Phosphatase 76 U/L (39-117); Anion Gap 13 (12-20); Aspartate Amino Transferase 18 U/L (5-37); Bilirubin Total 0.6 mg/dL (0.0-1.0); Blood Urea Nitrogen 17 mg/dL (9-16); Calcium 9.5 mg/dL (8.4-10.2); Carbon Dioxide 26 mmol/L (22-29); Chloride 108 mmol/L (96-108); Estimated Glomerular Filt Rate 59; Glucose Random 73 mg/dL (60-115); Potassium 4.8 mmol/L (3.3-5.1); Sodium 142 mmol/L (135-145); Total Protein 7.1 g/dL (6.5-8.0)
[2023-05-17 16:01] LABS: Creatinine Urine 170.22 mg/dL; Total Protein Urine Random 19 mg/dL (<12)
[2023-05-17 16:18] LABS: Erythrocyte Sedimentation Rate 20 MM/HR (0-15); Prostate Specific Antigen 0.31 ng/mL (<0.05-4.0)
[2023-05-21 19:09] LABS: CK-BB None Detected (None Detected); CK-MB 0 % (<5); CK-MM 100 % (95-100); Creatine Kinase,Total,Serum 16 U/L (44-196)
== END 2023-05-17 12:56 | disposition home or self-care (01) ==
LOC: HO.LAB 12:55
PROVIDERS: Internal Medicine Hypertension Specialist; PCP Internal Medicine; Visit Provider Hospitalist
DX: N40.1 Benign prostatic hyperplasia with lower urinary tract symptoms (principal); R39.12 Poor urinary stream; I10 Essential (primary) hypertension; G47.33 Obstructive sleep apnea (adult) (pediatric); J44.9 Chronic obstructive pulmonary disease, unspecified; R05.3 Chronic cough; R53.1 Weakness; J32.9 Chronic sinusitis, unspecified; J01.90 Acute sinusitis, unspecified; J30.9 Allergic rhinitis, unspecified; R07.82 Intercostal pain; Z12.5 Encounter for screening for malignant neoplasm of prostate; Z79.899 Other long term (current) drug therapy
CPT/HCPCS: 36415; 80053; 81003; 82552; 82570; 84153; 84156; 85025; 85652; 99212

== ENCOUNTER 2023-06-05 11:41 | Outpatient (AMB) | payer MEDICARE, SELFPAY ==
[2023-06-05 11:42] VITALS: BP 132/80; PULSE 73; O2SAT 97; BMI 37.4
--- NOTE | 2023-06-05 11:42 | HO.NEPHOV_ITS ---
HPI HPI Comments History of Present Illness Details Henri is a middle-aged man with history of obesity hypertension and mild CKD. He is complaining of generalized weakness in the muscles. He is undergoing physical therapy without much improvement. He has been receiving steroid injections for the bursitis. He also has ecchymosis in both upper extremities. Seen by Hematology and Oncology in the past and no significant pathology was documented. [facility] Medical History (Updated 05/19/23 @ 22:50 by Stephen Bahena MD) Weakness Chest pain Atelectasis Tobacco dependence syndrome (~01/13/22) Senile hyperkeratosis (~02/21/18) Sciatica (~11/24/12) Osteoporosis (~09/20/17) Obstructive sleep apnea syndrome (~01/04/10) Low back pain (~07/14/12) Hypertension (~07/14/12) Erectile dysfunction (~11/24/12) Hypercholesterolemia (~07/14/12) Chronic kidney disease, stage 3 (~09/22/17) Chronic pain syndrome (~11/20/16) Chronic cough Chronic allergic rhinitis Hyperlipidemia JENN on CPAP Asthma-COPD overlap syndrome Dyspnea Cough Asthma Sinusitis Osteoarthritis of knees, bilateral Spondylosis of cervical joint without myelopathy Surgical History History of colonoscopy (~10/16/21) Family History Father Parkinson disease Mother Sister Obesity Hypertension Social History Household Members: Spouse Housing: House Patient Tobacco Use Status: Former Tobacco user Tobacco use type: Cigarette Cigarette Packs Per Day: 1 Years Smoked: 30 years service: No Current occupational status: unemployed Vital Signs 06/05/23 11:42 Height 5 ft 11 in Weight 268 lb BMI 37.4 BP 132/80 Blood Pressure Location Lt brachial Position Sitting Pulse 73 Pulse Source Pulse Oximeter Pulse Oximetry (%) 97 Oxygen Delivery Method Room Air Physical Exam Vital Signs: Last Vital Signs Pulse 73 06/05/23 11:42 BP 132/80 06/05/23 11:42 Pulse Ox 97 06/05/23 11:42 Oxygen Delivery Method Room Air 06/05/23 11:42 BMI result Body Mass Index 37.4 Const General: comfortable Nutritional Appearance: well nourished Orientation/consciousness: patient oriented x3 HEENT Head: No normal to inspection Mouth: moist mucous membranes Neck Neck: Yes supple and Yes no JVD Resp Auscultation: clear to auscultation bilaterally, no rales and rub present Cardio Jugular venous distension: no JVD Palpation: no palpable S3 and no palpable S4 Heart sounds: no rubs GI Palpation (GI): Soft to palpation and nontender Percussion: No Fluid wave present General: Yes no CVA tenderness Back/Spine/Pelvis Back: no CVA tenderness Skin General skin exam: ecchymosis Neuro General: patient oriented x3 Extrem General: Yes no pedal edema and No clubbing Assessment & Plan Assessment & Plan (1) Hypertension: Onset Date: ~07/14/12 Code(s): I10 - Essential (primary) hypertension Plan: Blood pressure well controlled Stay on low-sodium diet Needs weight loss. (2) Weakness: Code(s): R53.1 - Weakness Plan: Etiology is unclear. Dyspnea related to use of statins. Other possibility includes steroid myopathy from frequent steroid injections. I have asked him to stop the statins for 2-3 weeks and see the improvement in the weakness. If there is no weakness I would refer him to Neurology for further evaluation Orders: Orders Basic Metabolic Panel 3 Months I10 - Essential (primary) hypertension, R53.1 - Weakness Neutrophil Cytoplasma Ab 3 Months I10 - Essential (primary) hypertension, R53.1 - Weakness Complement C3 3 Months I10 - Essential (primary) hypertension, R53.1 - Weakness Testosterone, Free/Total 3 Months I10 - Essential (primary) hypertension, R53.1 - Weakness Hemoglobin A1c 3 Months I10 - Essential (primary) hypertension, R53.1 - Weakness Comprehensive Met. Panel 3 Months I10 - Essential (primary) hypertension, N18.9 - Chronic kidney disease, unspecified, R53.1 - Weakness Lipid Panel 3 Months I10 - Essential (primary) hypertension, R53.1 - Weakness Myeloperoxidase Antibody 3 Months I10 - Essential (primary) hypertension, R53.1 - Weakness Proteinase 3 PR3 Antibodies 3 Months I10 - Essential (primary) hypertension, R53.1 - Weakness Complement C4 3 Months I10 - Essential (primary) hypertension, R53.1 - Weakness Medications: New amlodipine 5 mg PO DAILY 90 tabs 2RF ondansetron HCl 4 mg PO DAILY PRN 30 tabs 1RF nausea and vomiting Coding Level of Care Code Est Pt Level 4 (73347) Diagnoses Hypertension I10 Weakness R53.1 Results Reviewed Nephrology Results: Hgb 15.5 g/dl (14.0-18.0) 05/17/23 WBC 10.0 X10*3/uL (4.8-10.8) 05/17/23 Plt Count 224 X10*3/uL (160-400) 05/17/23 Sodium 142 mmol/L (135-145) 05/17/23 Potassium 4.8 mmol/L (3.3-5.1) 05/17/23 Chloride 108 mmol/L (96-108) 05/17/23 Carbon Dioxide 26 mmol/L (22-29) 05/17/23 BUN 17 mg/dL (9-16) H 05/17/23 Creatinine 1.23 mg/dL (0.5-1.4) 05/17/23 Calcium 9.5 mg/dL (8.4-10.2) 05/17/23 Urine Protein Trace mg/dL (Neg-Trace) 05/17/23 Urine Creatinine 170.22 mg/dL 05/17/23
== END 2023-06-05 12:32 | disposition home or self-care (01) ==
PROVIDERS: PCP Family Medicine; Visit Provider Internal Medicine Hypertension Specialist
DX: I10 Essential (primary) hypertension (principal); R53.1 Weakness
CPT/HCPCS: 99214

== ENCOUNTER → 2023-06-05 11:41 | Outpatient (BNVA) | payer MEDICARE, SELFPAY | PROVIDERS: PCP Family Medicine; Visit Provider Internal Medicine Hypertension Specialist | DX: I10 Essential (primary) hypertension (principal); R35.1 Nocturia | CPT/HCPCS: 99212 ==

== ENCOUNTER 2023-08-20 16:06 | Outpatient (REF) | payer MEDICARE, SELFPAY ==
[2023-08-20 18:01] LABS: MANUAL DIFF FLAG NO
[2023-08-20 18:47] LABS: Anion Gap 15 (12-20); Blood Urea Nitrogen 19 mg/dL (9-16); Calcium 9.7 mg/dL (8.4-10.2); Carbon Dioxide 21 mmol/L (22-29); Chloride 107 mmol/L (96-108); Estimated Glomerular Filt Rate 54; Glucose Random 81 mg/dL (60-115); Potassium 3.5 mmol/L (3.3-5.1); Sodium 139 mmol/L (135-145)
[2023-08-20 18:48] LABS: Basophils Absolute Auto 0.1 X10*3/uL (0.0-0.2); Basophils Percent Auto 0.6 % (0-2); Eosinophils Absolute Auto 0.6 X10*3/uL (0.0-0.4); Hematocrit 46.3 % (42.0-52.0); Hemoglobin 16.2 g/dl (14.0-18.0); Imm Gran Abs Auto 0.21 X10*3/uL (0.00-0.03); Imm Gran Pct Auto 1.8 % (0.0-0.4); Lymphocytes Percent Auto 17.4 % (20-40); Mean Corpuscular Hemoglobin 32.5 pg (27.0-33.0); Mean Corpuscular Volume 92.8 fL (80.0-98.0); Mean Platelet Volume 10.5 fL (9.4-12.4); Monocytes Absolute Auto 1.2 X10*3/uL (0.1-1.2); Monocytes Percent Auto 10.7 % (2-11); Neutrophils Absolute Auto 7.4 x10*3/uL (2.0-8.3); Neutrophils Percent Auto 64.5 % (45-73); Platelet Count 309 X10*3/uL (160-400); Red Blood Count 4.99 X10*6/uL (4.60-5.80); Red Cell Distribution Width 13.3 % (11.0-16.0); White Blood Count 11.5 X10*3/uL (4.8-10.8)
== END 2023-08-20 16:07 | disposition home or self-care (01) ==
LOC: HO.CHCLDS 16:06
PROVIDERS: Visit Provider Internal Medicine
DX: R10.32 Left lower quadrant pain (principal)
CPT/HCPCS: 36415; 80048; 85025

== ENCOUNTER 2023-09-03 14:05 | Outpatient (REF) | payer MEDICARE, SELFPAY ==
[2023-09-03 18:00] LABS: Potassium 3.9 mmol/L (3.3-5.1)
[2023-09-07 18:59] LABS: Testosterone, Free 36.2 pg/mL (35.0-155.0); Testosterone, Total 426 ng/dL (250-1100)
== END 2023-09-03 14:06 | disposition home or self-care (01) ==
LOC: HO.CHCLDS 14:05
PROVIDERS: Visit Provider Internal Medicine
DX: N52.8 Other male erectile dysfunction (principal); E87.5 Hyperkalemia
CPT/HCPCS: 36415; 84132; 84402; 84403

== ENCOUNTER 2023-12-20 12:36 | Outpatient (REF) | payer MEDICARE, SELFPAY ==
--- NOTE | ~2023-12-20 | XR_ITS ---
EXAMINATION: XR CHEST CLINICAL INFORMATION: Bronchitis COMPARISON: X-ray dated March 20, 2022 TECHNIQUE: 2 views of the chest were obtained. FINDINGS: No consolidation, pleural effusion or pneumothorax. Cardiomediastinal silhouette demonstrates normal size. Multilevel thoracic spondylosis, mild. XR/XR chest 2V IMPRESSION: No acute airspace disease. Electronically signed by: Easton Arthur MD 12/20/2023 02:17 PM EDT
== END 2023-12-20 12:37 | disposition home or self-care (01) ==
LOC: HO.XRAY 12:36
PROVIDERS: PCP Internal Medicine; Visit Provider Hospitalist
DX: R53.1 Weakness (principal); R07.9 Chest pain, unspecified; J40 Bronchitis, not specified as acute or chronic; G47.33 Obstructive sleep apnea (adult) (pediatric); Z99.89 Dependence on other enabling machines and devices; R05.3 Chronic cough
CPT/HCPCS: 71046; 99212

== ENCOUNTER 2023-12-20 12:36 | Outpatient (AMB) | payer MEDICARE, SELFPAY ==
--- NOTE | 2023-12-20 12:56 | A.OFFVIS_ITS ---
Vital Signs 12/20/23 13:00 Height 5 ft 11 in Weight 256 lb BMI 35.7 BP 136/78 Blood Pressure Location Lt brachial Position Sitting Pulse 77 Pulse Source Pulse Oximeter Pulse Oximetry (%) 97 Oxygen Delivery Method Room Air Intake Visit Reasons: Obstructive sleep apnea Medical Collections Specialist Required: No Allergies Seasonal Allergies Allergy (Verified 12/20/23 12:56) Runny Nose HPI Comments Details: The patient is a 63-year-old gentleman known sleep apnea currently on ASV, allergic rhinitis and also asthma. The patient does use a nasal pillow mask with a chinstrap. Therapy has been affecting beneficial. He does get supplies through his [employer] company [employer]. I will request a download from [employer] at this time. In the meantime he does complaint of a cough which is moderate severity in productive of sputum. He does have nasal congestion and does get allergy shots for allergic rhinitis. He has been using Flonase and has been helpful. He also takes Zyrtec and also had been on singular. Patient also complains of dyspnea on exertion. He does have a rescue inhaler but he does not have to use it. He was supposed to have pulmonary function studies but ultimately canceled. Will have to reschedule them prior to his next visit. I did provide him with the N30 mask that he can trial and see if is effective for him. Hopefully this with minimize irritation to the nostrils. 09/11/2022 the patient is here for a pulmonary follow-up visit. The patient has been having hard time with sinuses for the last 3-4 weeks. He feels significant congestion and also sinus pressure. He has taken [id number]-[id number] therapies in addition to nasal rinsing without a significant improvement. He has been on the azithromycin 3 times a week. The patient also complains of a cough secondary to the postnasal drip. His breathing otherwise has been okay as of now. The patient denies any fevers or chills. We did check his temperature today was 99 degrees. He already tested for COVID which was negative. This point the patient will be treated for sinusitis. Start with antibiotics in addition to Afrin mzul-rfi-eblvoua nasal spray. If he has no better he can start some prednisone. Also to note he did have chest x-ray back in 03/16/2019 demonstrating no acute lung pathology. Consider getting a sinus x-ray if he has no better. In the meantime he continues uses CPAP. CPAP therapy continues to be affecting beneficial. He does use it for more than 4 hours a night. He actually can not sleep without it. 05/17/2023 the patient is here for a pulmonary follow-up visit. He has multiple complaints. Again complaining of no sinus congestion and pressure. Second sinusitis is coming back. He typically responds well to Augmentin. He knows to stop the azithromycin if he is going to take Augmentin. The patient will need to call the office her see ENT if he continues to have persistent sinusitis issues. in the meantime the patient complains of extremity weakness. Denies any muscle pains. Just feels weak having some difficulty even getting up from the toilet. The patient also had a fall landing on his left side. He does have some pleuritic left-sided discomfort. He will have a rib series. He will be talking to his primary care doctor soon About his weakness and fall.. He does take statins. Will go ahead and check a CPK specially since going to get blood work but he needs to follow-up with his primary care doctor and should benefit from referral to physiatry Neurology. He will talk to his primary care doctor about that. Regards to the CPAP that continues to be affecting beneficial. He continues use it every night for more than 4 hours a night. 12/20/2023 the patient is here for a pulmonary follow-up visit. He complaining of worsening cough. It is productive in nature. Moderate severity. He has been waking up also worse of times of the night coughing. He is using a towel to try to clear secretions. The patient is having some coughing episodes while using his I AVAP. He did bring it in. Is not find the humidity of the temperature. Appears that he just has significant nasal congestion. He also has inflammation of the nasopharynx and also of the posterior pharynx. Also having some chest congestion. He will have a chest x-ray today. The patient is no better after the Augmentin he will provide us with a sputum culture. In the meantime the patient will continue with his current AVAP setting. His AHI is down to 1 therefore I suggested that they keep the current pressures. Although I believe with a high pressures through the AVAPS he is better off with a fullface mask. Although he likes the nasal pillows. I would encourage him to try a fullface mask future. [facility] Medical History (Updated 12/20/23 @ 13:06 by Stephen Bahena MD) Bronchitis Weakness Chest pain Atelectasis Tobacco dependence syndrome (~01/13/22) Senile hyperkeratosis (~02/21/18) Sciatica (~11/24/12) Osteoporosis (~09/20/17) Obstructive sleep apnea syndrome (~01/04/10) Low back pain (~07/14/12) Hypertension (~07/14/12) Erectile dysfunction (~11/24/12) Hypercholesterolemia (~07/14/12) Chronic kidney disease, stage 3 (~09/22/17) Chronic pain syndrome (~11/20/16) Chronic cough Chronic allergic rhinitis Hyperlipidemia JENN on CPAP Asthma-COPD overlap syndrome Dyspnea Cough Asthma Sinusitis Osteoarthritis of knees, bilateral Spondylosis of cervical joint without myelopathy Surgical History History of colonoscopy (~10/16/21) Family History Father Parkinson disease Mother Sister Obesity Hypertension Social History Household Members: Spouse Housing: House Patient Tobacco Use Status: Former Tobacco user Tobacco use type: Cigarette Cigarette Packs Per Day: 1 Years Smoked: 30 years service: No Current occupational status: unemployed Review of Systems Const Denies night sweats and Reports weight loss ENT Denies change in voice, Denies lip swelling, Denies mouth pain, Reports nasal congestion, Reports nasal discharge, Reports sinus pain, Reports sinus pressure and Denies tongue swelling Card Reports dyspnea on exertion Resp Reports chest congestion, Reports cough, Reports pain on inspiration, Reports pain with cough and Reports dyspnea on exertion GI Denies abdominal pain Musc Reports abnormal gait, Reports joint swelling, Reports limited range of motion and Reports muscle weakness Neuro Denies Neuro-related abnormal movements and Reports abnormal gait Psych Denies no additional complaints Sheldon/Lymph Denies easy bleeding and Denies lymphadenopathy Aller/Immun Denies lip swelling and Denies tongue swelling Physical Exam Vital Signs: Last Vital Signs Pulse 77 12/20/23 13:00 BP 136/78 12/20/23 13:00 Pulse Ox 97 12/20/23 13:00 Oxygen Delivery Method Room Air 12/20/23 13:00 BMI result Body Mass Index 35.7 HEENT Head: Yes normocephalic General nose exam: Abnormal mucous membranes and turbinates present erythematous and Nasal discharge present purulent and mucoid Throat: Yes postnasal drainage and Yes cobblestoning Eyes Alignment and Position: alignment normal Pupils: Equal, round and reactive pupils present Neck Neck: Yes normal visual inspection, Yes full ROM and Yes no lymphadenopathy Chest Chest palpation & inspection: no crepitus and tenderness rib (left lower chest) Resp Auscultation: no wheezes and diminished lung sounds Cardio Rate: regular rate Rhythm: regular rhythm Heart sounds: S1 normal heart sound present and S2 normal heart sound present GI Palpation (GI): Soft to palpation and nontender Auscultation: normal bowel sounds Skin General skin exam: rashes and/or lesions noted Neuro Cranial nerves: Yes Equal, round and reactive pupils present Assessment & Plan Assessment & Plan (1) JENN on CPAP: Code(s): G47.33 - Obstructive sleep apnea (adult) (pediatric); Z99.89 - Dependence on other enabling machines and devices Category: Medical (2) Asthma-COPD overlap syndrome: Code(s): J44.9 - Chronic obstructive pulmonary disease, unspecified Category: Medical (3) Cough: Code(s): R05 - Cough Category: Medical Qualifiers: Cough type: chronic Qualified Code(s): R05.3 - Chronic cough (4) Chronic allergic rhinitis: Code(s): J30.9 - Allergic rhinitis, unspecified Category: Medical (5) Weakness: Code(s): R53.1 - Weakness Category: Medical (6) Sinusitis: Code(s): J32.9 - Chronic sinusitis, unspecified Category: Medical Qualifiers: Chronicity: subacute Sinusitis location: unspecified location Qualified Code(s): J01.90 - Acute sinusitis, unspecified (7) Bronchitis: Code(s): J40 - Bronchitis, not specified as acute or chronic Category: Medical Plan CPT with nebulized therapy followed by hypertonic saline continue antihistamine and Singulair continue PAP therapy okay to use it without humidification reflux diet holding azithromycin MWF, will need EKG start Augmentin sputum culture Continue Daliresp follow-up 6 month Orders: Orders Sputum Cult + Gram stain 12/21/23 J40 - Bronchitis, not specified as acute or chronic XR chest 2V 12/20/23 J40 - Bronchitis, not specified as acute or chronic Medications: New codeine-guaifenesin 10-100 mg/5 mL 10 mL PO Q6H PRN 300 mL 0RF cough 10 days sodium chloride 3% 4 mL inhalation BID 240 mL 11RF 30 days amoxicillin-pot clavulanate 875-125 mg 1 tab PO BID 20 tabs 0RF 10 days epinephrine (EpiPen 2-Oc) for 2 doses 0.3 mg (0.3 mL) IM Q10M PRN 2 ea 6RF anaphylaxis 30 days J45.40 - Moderate persistent asthma, uncomplicated prednisone PO daily; Take 2 tabs daily x 5 days, then 1 tablet daily x 5 days 15 tabs 0RF 10 days Coding Level of Care Code Est Pt Level 4 (43565) Diagnoses JENN on CPAP G47.33; Z99.89 Asthma-COPD overlap syndrome J44.9 Chronic cough R05.3 Cough type: chronic Chronic allergic rhinitis J30.9 Weakness R53.1 Subacute sinusitis, unspecified location J01.90 Chronicity: subacute Sinusitis location: unspecified location Bronchitis J40 Time Spent (min) 17
[2023-12-20 13:00] VITALS: BP 136/78; PULSE 77; O2SAT 97; BMI 35.7
== END 2023-12-20 13:26 | disposition home or self-care (01) ==
PROVIDERS: PCP Family Medicine; Visit Provider Hospitalist
DX: G47.33 Obstructive sleep apnea (adult) (pediatric) (principal); Z99.89 Dependence on other enabling machines and devices; J44.9 Chronic obstructive pulmonary disease, unspecified; R05.3 Chronic cough; J30.9 Allergic rhinitis, unspecified; R53.1 Weakness; J01.90 Acute sinusitis, unspecified; J40 Bronchitis, not specified as acute or chronic
CPT/HCPCS: 99214

== ENCOUNTER → 2023-12-20 13:38 | Outpatient (BNV) | payer MEDICARE, SELFPAY | PROVIDERS: PCP Internal Medicine; Visit Provider Radiology Diagnostic Radiology | DX: J20.9 Acute bronchitis, unspecified (principal) | CPT/HCPCS: 71046 ==

== ENCOUNTER 2023-12-21 08:00 | Outpatient (REF) | payer MEDICARE, SELFPAY | END 2023-12-21 08:01 | disposition home or self-care (01) | LOC: HO.LNP 08:00 | PROVIDERS: Visit Provider Hospitalist | DX: J40 Bronchitis, not specified as acute or chronic (principal) | CPT/HCPCS: 87070; 87077; 87185; 87205 ==

== ENCOUNTER 2024-01-30 11:01 | Outpatient (REF) | payer MEDICARE, SELFPAY ==
[2024-01-30 12:10] LABS: MANUAL DIFF FLAG NO
[2024-01-30 12:43] LABS: Basophils Absolute Auto 0.1 X10*3/uL (0.0-0.2); Basophils Percent Auto 0.8 % (0-2); Eosinophils Absolute Auto 0.2 X10*3/uL (0.0-0.4); Eosinophils Percent Auto 2.1 % (0-4); Hematocrit 44.3 % (42.0-52.0); Hemoglobin 14.8 g/dl (14.0-18.0); Imm Gran Abs Auto 0.08 X10*3/uL (0.00-0.03); Lymphocytes Absolute Auto 2.2 X10*3/uL (1.2-4.9); Lymphocytes Percent Auto 26.2 % (20-40); Mean Corpuscular HGB Conc 33.4 g/dl (31.0-36.0); Mean Corpuscular Hemoglobin 31.6 pg (27.0-33.0); Mean Corpuscular Volume 94.7 fL (80.0-98.0); Mean Platelet Volume 9.9 fL (9.4-12.4); Monocytes Absolute Auto 0.9 X10*3/uL (0.1-1.2); Monocytes Percent Auto 11.2 % (2-11); Neutrophils Absolute Auto 4.9 x10*3/uL (2.0-8.3); Neutrophils Percent Auto 58.7 % (45-73); Platelet Count 327 X10*3/uL (160-400); Red Blood Count 4.68 X10*6/uL (4.60-5.80); Red Cell Distribution Width 13.3 % (11.0-16.0); White Blood Count 8.4 X10*3/uL (4.8-10.8)
[2024-01-30 13:12] LABS: Anion Gap 14 (12-20); Blood Urea Nitrogen 11 mg/dL (9-16); Calcium 9.4 mg/dL (8.4-10.2); Carbon Dioxide 26 mmol/L (22-29); Chloride 108 mmol/L (96-108); Estimated Glomerular Filt Rate > 60; Glucose Random 99 mg/dL (60-115); Potassium 4.6 mmol/L (3.3-5.1); Sodium 143 mmol/L (135-145)
[2024-01-30 13:25] LABS: Erythrocyte Sedimentation Rate 51 MM/HR (0-15)
[2024-02-01 01:23] LABS: IgA 570 mg/dL (70-320); IgG 1311 mg/dL (600-1540); IgM 153 mg/dL (50-300)
[2024-02-01 05:33] LABS: Immunoglobulin E 141 kU/L (<OR=114)
--- OUTSIDE RECORDS SUMMARY | 2024-02-05 02:03 | XMS_ITS | Continuity of Care Document ---
Author Organization [facility] Address [address] [place] [address] Phone Care Team Providers Care Area Plant Manager Name Role Phone Adria LACKEY, RVT, [...] (unknown strength) Not Available - Active VITAMIN [id number] ACID (unknown strength) Not Available - Active [...] E&M Established 15 Mins [facility], [address] [place] [address] Dr Arshad 1000[facility] [address], [id number], [place] tel:[phone] CVR - [facility] Cramp and spasmRestless legs syndromeEssent ial (primary) hypertensionPa in in left lower legPain in left legLocalized edema 4 Adria LACKEY, RVT, LEÓN Torres. [address] [place] [address], [place], [place], [id number] , [place]. tel:[phone] Referring Provider: Handy Mckeon, [address] [place] [address], [address]. tel:[phone] [facility], [address] [place] [address] Dr Arshad [address] [address], [place], [id number], [place] tel:[phone] CVR - [facility] Encounter for follow-up examination after completed treatment for conditions other than malignant neVaricose veins of right lower extremity with pain 3 Asim LACKEY FACS RVT LEÓN [place]. [address] [place] [address], [place], [address], [place]. tel:[phone] Referring Provider: Handy Mckeon, [address], [address]. tel:[phone] [place] [facility], [address] [place] [address] Dr Arshad [address], [place], [id number], [place] tel:[phone] CVR - [place] Varicose veins of right lower extremity with other complications Jan-0 3 Doreen De Paz . [address] [facility], [place] [address], [place], [place], [id number] , [place]. tel:[phone] Referring Provider: Handy Mckeon, [address], [address]. tel:[phone] [place] [facility], [address] [place] [address] Dr Arshad 1000[address] 1000[place], [id number], [place] tel:[phone] CVR - [place] Varicose veins of right lower extremity with other complications 3 Asim LACKEY FACS [facility]. [address] [place] [address], [place], [address], [place]. [phone] Referring Provider: Handy Mckeon, [address] [place] [address], [address]. tel:[phone] Office/Outpt E&M Established 25 Mins [facility], [address] [place] [address] Dr Arshad 1000Suite 1000[place], [id number], [place] tel:[phone] CVR - [place] - [place] Chronic venous hypertension (idiopathic) with other complications of bilateral lower extremity Nov- 3 Asim LACKEY FACS [facility]. [address] [place] [address], [place], [address], [place]. tel:[phone] Referring Provider: Handy Mckeon, [address], [address]. tel:[phone] Office/Outpt E&M Established 10 Mins - [facility], [address] [place] [address] Dr Arshad 1000[address] 1000[place], [id number], [place] tel:[phone] CVR - [place] Venous insufficiency (chronic) (peripheral) Apr-2 6-202 3 Asim LACKEY FACS T [facility]. [facility], [place] [address], [place], [address], [place]. tel:[phone] Referring Provider: Handy Mckeon, [address] [place] [address], [address]. tel:[phone] Office/Outpt E&M Established 15 Mins [facility], [address] [place] [address] [address] [address], [place], [id number], [place] [phone] CVR - [place] Venous insufficiency (chronic) (peripheral) 3 Asim LACKEY FACS [facility]. [address] [place] [address], [place], [address], [place]. [phone] Referring Provider: Handy Mckeon, [address] [place] [address], [address]. tel:[phone] [place] [facility], [address] [place] [address] Dr Arshad [address], [place], [id number], [place] tel:[phone] CVR - [place] Venous insufficiency (chronic) (peripheral) 3 Asim LACKEY [facility]. [address] [place] [address], [place] [address], [place], [address], [place]. [phone] Referring Provider: Blanka Dailey MD FACS [facility], [address] [place] [address], [place], [address]. tel:[phone] Office/Oupt E&M New Pt 30 Mins [facility], [address] [place] [address] Dr Arshad 1000Suite 1000[place], [id number], [place] tel:[phone] CVR - [place] Venous insufficiency (chronic) (peripheral)Lo calized edemaRestless legs syndromeEssent ial (primary) hypertensionPr uritus, unspecifiedFla il joint, unspecified jointPain in right legPain in left legPain in right lower legPain in left lower legCramp and spasm 3 Asim LACKEY FACS RVT RPTEREZA [facility]. [address] [facility], [address], [facility], [address], [place]. tel:[phone] Referring Provider: Blanka Dailey MD FACS RVT [facility], [address] [facility] [address], [place], [address]. tel:[phone] Family History Family Member Type Diagnosis Age At Onset No Information Payers Payer name Insurance type Covered republican ID Authoriza tion(s) Medicare BIANKA MB [id number] BCBS BIANKA [id number] Social History Type Description Quantity Date Captured [...]
== END 2024-01-30 11:02 | disposition home or self-care (01) ==
LOC: HO.LAB 11:01
PROVIDERS: PCP Family Medicine; Visit Provider Hospitalist
DX: R53.1 Weakness (principal); R07.9 Chest pain, unspecified; J40 Bronchitis, not specified as acute or chronic; J45.40 Moderate persistent asthma, uncomplicated; G47.33 Obstructive sleep apnea (adult) (pediatric); Z99.89 Dependence on other enabling machines and devices; J44.9 Chronic obstructive pulmonary disease, unspecified; R05.3 Chronic cough; J30.9 Allergic rhinitis, unspecified; J01.90 Acute sinusitis, unspecified
CPT/HCPCS: 36415; 80048; 82784; 82785; 85025; 85652; 99212

== ENCOUNTER 2024-01-30 11:01 | Outpatient (AMB) | payer MEDICARE, SELFPAY ==
[2024-01-30 11:07] VITALS: BP 148/96; PULSE 74; O2SAT 97; BMI 36.7
--- NOTE | 2024-01-30 11:07 | MHC.OFFVIS ---
Vital Signs 01/30/24 11:07 Height 5 ft 11 in Weight 263 lb 7.238 oz BMI 36.7 BP 148/96 H Blood Pressure Location Rt brachial Position Sitting Pulse 74 Pulse Source Pulse Oximeter Pulse Oximetry (%) 97 Oxygen Delivery Method Room Air Intake Visit Reasons: Obstructive sleep apnea Allergies Seasonal Allergies Allergy (Verified 01/30/24 11:11) Runny Nose HPI Comments Details: The patient is a 64-year-old gentleman known sleep apnea currently on ASV, allergic rhinitis and also asthma. The patient does use a nasal pillow mask with a chinstrap. Therapy has been affecting beneficial. He does get supplies through his [employer] company [employer]. I will request a download from [employer] at this time. In the meantime he does complaint of a cough which is moderate severity in productive of sputum. He does have nasal congestion and does get allergy shots for allergic rhinitis. He has been using Flonase and has been helpful. He also takes Zyrtec and also had been on singular. Patient also complains of dyspnea on exertion. He does have a rescue inhaler but he does not have to use it. He was supposed to have pulmonary function studies but ultimately canceled. Will have to reschedule them prior to his next visit. I did provide him with the N30 mask that he can trial and see if is effective for him. Hopefully this with minimize irritation to the nostrils. 09/11/2022 the patient is here for a pulmonary follow-up visit. The patient has been having hard time with sinuses for the last 3-4 weeks. He feels significant congestion and also sinus pressure. He has taken wzkc-ems-vyjhegd therapies in addition to nasal rinsing without a significant improvement. He has been on the azithromycin 3 times a week. The patient also complains of a cough secondary to the postnasal drip. His breathing otherwise has been okay as of now. The patient denies any fevers or chills. We did check his temperature today was 99 degrees. He already tested for COVID which was negative. This point the patient will be treated for sinusitis. Start with antibiotics in addition to Afrin [id number] nasal spray. If he has no better he can start some prednisone. Also to note he did have chest x-ray back in 03/16/2019 demonstrating no acute lung pathology. Consider getting a sinus x-ray if he has no better. In the meantime he continues uses CPAP. CPAP therapy continues to be affecting beneficial. He does use it for more than 4 hours a night. He actually can not sleep without it. 05/17/2023 the patient is here for a pulmonary follow-up visit. He has multiple complaints. Again complaining of no sinus congestion and pressure. Second sinusitis is coming back. He typically responds well to Augmentin. He knows to stop the azithromycin if he is going to take Augmentin. The patient will need to call the office her see ENT if he continues to have persistent sinusitis issues. in the meantime the patient complains of extremity weakness. Denies any muscle pains. Just feels weak having some difficulty even getting up from the toilet. The patient also had a fall landing on his left side. He does have some pleuritic left-sided discomfort. He will have a rib series. He will be talking to his primary care doctor soon About his weakness and fall.. He does take statins. Will go ahead and check a CPK specially since going to get blood work but he needs to follow-up with his primary care doctor and should benefit from referral to physiatry Neurology. He will talk to his primary care doctor about that. Regards to the CPAP that continues to be affecting beneficial. He continues use it every night for more than 4 hours a night. 12/20/2023 the patient is here for a pulmonary follow-up visit. He complaining of worsening cough. It is productive in nature. Moderate severity. He has been waking up also worse of times of the night coughing. He is using a towel to try to clear secretions. The patient is having some coughing episodes while using his I AVAP. He did bring it in. Is not find the humidity of the temperature. Appears that he just has significant nasal congestion. He also has inflammation of the nasopharynx and also of the posterior pharynx. Also having some chest congestion. He will have a chest x-ray today. The patient is no better after the Augmentin he will provide us with a sputum culture. In the meantime the patient will continue with his current AVAP setting. His AHI is down to 1 therefore I suggested that they keep the current pressures. Although I believe with a high pressures through the AVAPS he is better off with a fullface mask. Although he likes the nasal pillows. I would encourage him to try a fullface mask future. 01/30/2024 the patient is here for a pulmonary follow-up visit. He continues to have significant nasal congestion sinus pressure postnasal drip and cough. It is bothersome to him. The patient has had a course of Augmentin without any significant improvement. He is wondering about different antibiotic. Thinking about Levaquin. Explained to him that he is having issues with bursitis and the Levaquin can potentially worsen tendinitis and bursitis. Therefore hold off on that we will try a combination of Augmentin and doxycycline. We did get a culture that was positive for Haemophilus parainfluenza. We did talk that if the patient continued to be symptomatic we can consider performing a bronchoscopy for deep cultures. But also he can follow-up with ENT since he is already established with them regarding the patient have a laryngoscopy at the bedside. In addition to that he had blood work previously. His eosinophil counts were significantly elevated. Therefore we could also consider the use of Dupixent. Will request additional blood work to see if he still candidate for that. In the meantime he is going to continue with the nasal rinsing. He is also going to start budesonide along with his Neti bottle. He will continue to use CPAP right now. He is using a fullface mask. The therapy has been affecting beneficial. She will use it for more than 4 hours a night. Will follow-up in 6 weeks to assess his progress with the therapy and will review the blood work to see if he is a candidate for Dupixent. [facility] Medical History (Updated 12/20/23 @ 13:06 by Stephen Bahena MD) Bronchitis Weakness Chest pain Atelectasis Tobacco dependence syndrome (~01/13/22) Senile hyperkeratosis (~02/21/18) Sciatica (~11/24/12) Osteoporosis (~09/20/17) Obstructive sleep apnea syndrome (~01/04/10) Low back pain (~07/14/12) Hypertension (~07/14/12) Erectile dysfunction (~11/24/12) Hypercholesterolemia (~07/14/12) Chronic kidney disease, stage 3 (~09/22/17) Chronic pain syndrome (~11/20/16) Chronic cough Chronic allergic rhinitis Hyperlipidemia JENN on CPAP Asthma-COPD overlap syndrome Dyspnea Cough Asthma Sinusitis Osteoarthritis of knees, bilateral Spondylosis of cervical joint without myelopathy Surgical History History of colonoscopy (~10/16/21) Family History Father Parkinson disease Mother Sister Obesity Hypertension Social History Household Members: Spouse Housing: House Patient Tobacco Use Status: Former Tobacco user Tobacco use type: Cigarette Cigarette Packs Per Day: 1 Years Smoked: 30 years service: No Current occupational status: unemployed Review of Systems Const Denies night sweats and Reports weight loss ENT Denies change in voice, Denies lip swelling, Denies mouth pain, Reports nasal congestion, Reports nasal discharge, Reports sinus pain, Reports sinus pressure and Denies tongue swelling Card Reports dyspnea on exertion Resp Reports chest congestion, Reports cough, Reports pain on inspiration, Reports pain with cough and Reports dyspnea on exertion GI Denies abdominal pain Musc Reports abnormal gait, Reports joint swelling, Reports limited range of motion and Reports muscle weakness Neuro Denies Neuro-related abnormal movements and Reports abnormal gait Psych Denies no additional complaints Sheldon/Lymph Denies easy bleeding and Denies lymphadenopathy Aller/Immun Denies lip swelling and Denies tongue swelling Physical Exam Vital Signs: Last Vital Signs Pulse 74 01/30/24 11:07 BP 148/96 H 01/30/24 11:07 Pulse Ox 97 01/30/24 11:07 Oxygen Delivery Method Room Air 01/30/24 11:07 BMI result Body Mass Index 36.7 HEENT Head: Yes normocephalic General nose exam: Abnormal mucous membranes and turbinates present erythematous and Nasal discharge present purulent and mucoid Throat: Yes postnasal drainage and Yes cobblestoning Eyes Alignment and Position: alignment normal Pupils: Equal, round and reactive pupils present Neck Neck: Yes normal visual inspection, Yes full ROM and Yes no lymphadenopathy Chest Chest palpation & inspection: no crepitus and tenderness rib (left lower chest) Resp Auscultation: no wheezes and diminished lung sounds Cardio Rate: regular rate Rhythm: regular rhythm Heart sounds: S1 normal heart sound present and S2 normal heart sound present GI Palpation (GI): Soft to palpation and nontender Auscultation: normal bowel sounds Skin General skin exam: rashes and/or lesions noted Neuro Cranial nerves: Yes Equal, round and reactive pupils present Results Reviewed Results Reviewed: personally reviewed CXR with no acute disease [address] [place] [address] XRay Report Signed Patient: Henri Espino MR#: [id number] : 1960 Acct:[id number] Age/Sex: 63 / M ADM Date: 12/20/23 Loc: [facility] Attending Dr: Stephen Bahena MD Ordering Physician: Stephen Bahena MD Date of Service: 12/20/23 Procedure(s): XR chest 2V Accession Number(s): [id number] cc: Handy Elias MD; Stephen Bahena MD~ EXAMINATION: XR CHEST CLINICAL INFORMATION: Bronchitis COMPARISON: X-ray dated March 20, 2022 TECHNIQUE: 2 views of the chest were obtained. FINDINGS: No consolidation, pleural effusion or pneumothorax. Cardiomediastinal silhouette demonstrates normal size. Multilevel thoracic spondylosis, mild. XR/XR chest 2V IMPRESSION: No acute airspace disease. 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: Assessment & Plan Assessment & Plan (1) JENN on CPAP: Code(s): G47.33 - Obstructive sleep apnea (adult) (pediatric); Z99.89 - Dependence on other enabling machines and devices Category: Medical (2) Asthma-COPD overlap syndrome: Code(s): J44.9 - Chronic obstructive pulmonary disease, unspecified Category: Medical (3) Cough: Code(s): R05 - Cough Category: Medical Qualifiers: Cough type: chronic Qualified Code(s): R05.3 - Chronic cough (4) Chronic allergic rhinitis: Code(s): J30.9 - Allergic rhinitis, unspecified Category: Medical (5) Weakness: Code(s): R53.1 - Weakness Category: Medical (6) Sinusitis: Code(s): J32.9 - Chronic sinusitis, unspecified Category: Medical Qualifiers: Chronicity: subacute Sinusitis location: unspecified location Qualified Code(s): J01.90 - Acute sinusitis, unspecified (7) Bronchitis: Code(s): J40 - Bronchitis, not specified as acute or chronic Category: Medical Plan CPT with nebulized therapy followed by hypertonic saline continue antihistamine and Singulair continue PAP therapy okay to use it without humidification reflux diet holding azithromycin MWF start Augmentin/Doxycycline start Budesonide F/U with ENT re: laryngoscopy Bloodwork ?candidate for Dupixent Consider bronchosocpy for therapeutic cleaning and deep cultures if no better Continue Daliresp follow-up 6-8 weeks Orders: Orders Complete Blood Count Auto Diff Today J30.9 - Allergic rhinitis, unspecified, J44.9 - Chronic obstructive pulmonary disease, unspecified Basic Metabolic Panel Today J30.9 - Allergic rhinitis, unspecified, J44.9 - Chronic obstructive pulmonary disease, unspecified Erythrocyte Sedimentation Rate Today J30.9 - Allergic rhinitis, unspecified, J44.9 - Chronic obstructive pulmonary disease, unspecified Immunoglobulins,IgG IgA IgM Today J30.9 - Allergic rhinitis, unspecified, J44.9 - Chronic obstructive pulmonary disease, unspecified Immunoglobulin E Today J30.9 - Allergic rhinitis, unspecified, J44.9 - Chronic obstructive pulmonary disease, unspecified Medications: New amoxicillin-pot clavulanate 875-125 mg 1 tab PO BID 14 days 28 tabs 0RF budesonide 0.5 mg (2 mL) inhalation DAILY 30 days 60 mL 11RF J44.9 - Chronic obstructive pulmonary disease, unspecified doxycycline monohydrate 100 mg PO BID 14 days 28 tabs 0RF Coding Level of Care Code Est Pt Level 5 (98720) Complex EM visit Add On G2211 Diagnoses JENN on CPAP G47.33; Z99.89 Asthma-COPD overlap syndrome J44.9 Chronic cough R05.3 Cough type: chronic Chronic allergic rhinitis J30.9 Weakness R53.1 Subacute sinusitis, unspecified location J01.90 Chronicity: subacute Sinusitis location: unspecified location Bronchitis J40 Time Spent (min) 40
--- OUTSIDE RECORDS SUMMARY | 2024-02-05 01:49 | XMS_ITS | Data Portability ---
Author Organization [place] - [facility], Allergy Address [address] [address] Assessment Encounter Date Assessment Date Assessment LastModified by Organization Details LastModified Time 07/18/2023 07/18/2023 Administered By: YOANNA Potts Use of Antihistamines: No If yes: Vial Test Yes Change in medications: No If yes ?? Increase in asthma symptoms If yes, inhaler use: Reaction to last injections: If yes: ?? Allergy Symptoms: Other: ?? Missed 1 week Dose Notes:?? Not available 07/18/2023 14:55:44 07/23/2023 07/23/2023 Patient presents for allergy follow up. Doing well on immunotherapy without adverse reactions. Epi-pen prescription is up to date. Patient will continue current therapy and follow up in another 6 months for reevaluation. [email or web address] Not available 07/23/2023 13:46:42 08/13/2023 08/13/2023 Administered By: Cookie Meng Use of Antihistamines: No If yes: Vial Test Change in medications: No If yes ?? Increase in asthma symptoms If yes, inhaler use: Reaction to last injections: No If yes: ?? Allergy Symptoms: Other: ?? Missed 1 week Dose Notes:?? [email or web address] Not available 08/13/2023 15:02:35 09/25/2023 09/25/2023 Administered By: Karoline Kelly RN Use of Antihistamines: Yes If yes: Vial Test Change in medications: No If yes ?? Increase in asthma symptoms No Asthma Hx If yes, inhaler use: Reaction to last injections: No If yes: ?? Allergy Symptoms: Other: ?? Missed 1 week Dose Notes:?? [email or web address] Not available 09/25/2023 11:18:23 10/16/2023 10/16/2023 Administered By: Cookie Meng Use of Antihistamines: Yes If yes: Daily Vial Test Change in medications: No If yes ?? Increase in asthma symptoms If yes, inhaler use: Reaction to last injections: No If yes: ?? Allergy Symptoms: Other: ?? Missed 1 week Dose Notes:?? [email or web address] Not available 10/16/2023 16:52:02 Plan of Treatment Reminders Order Date Submit Date Provider Last Modified By Organization Details Last Modified Time Details [facility]mon [facility]24 01:15P M SHAAN NORMAN PA-C Not available Not available Not available Lab None recorded . Referral None recorded . Procedures None recorded . Surgeries None recorded . Imaging None recorded . Medication Orders None recorded . Patient TargetsNo targets recorded. Patient InstructionsNo instructions recorded. Reason for Referral None Reported. Results Created Date Observation Date Name Description Value Unit Range Abnormal Flag Note LastModifiedBy Organization Detail LastModifiedTime 10/16/19 24 09/20/2022 imagi ng/di agnos tic resul t No observ ation record ed. [email or web address] Not Available 19:51:15 10/16/19 24 01/29/2022 imagi ng/di agnos tic resul t No observ ation record ed. [email or web address] Not Available 19:52:24 Result Notes None recorded. Problems Name Problem SNOMED Code Status Onset Date Resolution Date Notes Provider Name and Address Organization Details Recorded Time Snoring [id number] Active 2016 Snoring; Note: Date Diagnosed: 08/23/2016 4:44 PM (R06.83) Not Available [facility] 4 02:47:57 Acute pharyngit is 035080805 Active 2013 Pharyngiti s, acute; CMS Risk: low risk CMS Treatment: new problem (to examiner): additional workup planned No te: Date Diagnosed: 12/16/2013 4:30 PM (462) Not Available [facility] 4 02:47:57 Hypertrop hy of tonsils 23703532 Active 2016 Hypertroph y of tonsils; Note: Date Diagnosed: 08/23/2016 4:50 PM (J35.1) Not Available [facility] 4 02:47:54 Acute sialoaden itis 606983886 Active 2021 Acute sialoadeni tis; Note: Date Diagnosed: 01/23/2022 3:21 PM (K11.21) Not Available [facility] 4 02:47:55 Abnormal auditory perceptio n 27524015 Active 2017 Other abnormal auditory perception s, bilateral; Note: Date Diagnosed: 09/02/2017 4:53 PM (H93.293) Not Available [facility] 4 02:47:53 Cough 83362177 Active 2016 Cough; Note: Date Diagnosed: 03/23/2016 4:25 PM (R05) Not Available [facility] 4 02:47:53 Acute sinusitis 05736635 Active 2016 Acute sinusitis, unspecifie d; Note: Date Diagnosed: 02/07/2017 3:59 PM (J01.90) Not Available [facility] 4 02:47:58 Sensorine ural hearing loss of bilateral ears 496959615 Active 2017 Sensorineu ral hearing loss, bilateral; Note: Date Diagnosed: 09/02/2017 5:33 PM (H90.3) Not Available [facility] 4 02:47:51 Posterior rhinorrhe a 31614906 Active 2016 Postnasal drip; Note: Date Diagnosed: 02/07/2017 3:59 PM (R09.82) Not Available [facility] 4 02:47:58 Simple obesity 227394256 Active 2016 Other obesity due to excess calories; Note: Date Diagnosed: 08/23/2016 4:44 PM (E66.09) Not Available [facility] 4 02:47:56 Nasal congestio n 73445079 Active 2016 Nasal congestion ; Note: Date Diagnosed: 03/23/2016 4:25 PM (R09.81) Not Available [facility] 4 02:47:57 Obstructi ve sleep apnea syndrome 69161667 Active 2016 Obstructiv e sleep apnea (adult) (pediatric ); Note: Date Diagnosed: 08/23/2016 4:44 PM (G47.33) Not Available [facility] 02:47:53 Allergic rhinitis caused by pollen 25583265 Active 2022 Allergic rhinitis due to pollen; Note: Date Diagnosed: 12/18/2022 3:52 PM (J30.1) Allergic rhinitis due to pollen; Note: Date Diagnosed: 04/19/2021 1:28 PM (J30.1) ; Start Date : 04/19/2021 Not Available [facility] 02:47:55 Allergic rhinitis 93081765 Active 2023 Allergic rhinitis: Due to other allergen; Note: Date Diagnosed: 03/01/2023 2:26 PM (477.8) Note: Date Diagnosed: 03/01/2023 2:26 PM (477.8) Allergic rhinitis: Due to other allergen; Note: Date Diagnosed: 02/14/2023 2:21 PM (477.8) Note: Date Diagnosed: 02/14/2023 2:21 PM (477.8) ; Start Date : 02/14/2023 Allergic rhinitis: Due to other allergen; Note: Date Diagnosed: 01/29/2023 3:24 PM (477.8) Note: Date Diagnosed: 01/29/2023 3:24 PM (477.8) ; Start Date : 01/29/2023 Allergic rhinitis: Due to other allergen; Note: Date Diagnosed: 01/14/2023 11:58 AM (477.8) Note: Date Diagnosed: 01/14/2023 11:58 AM (477.8) ; Start Date : 01/14/2023 Allergic rhinitis: Due to other allergen; Note: Date Diagnosed: 01/04/2023 2:20 PM (477.8) Note: Date Diagnosed: 01/04/2023 2:20 PM (477.8) ; Start Date : 01/04/2023 Allergic rhinitis: Due to other allergen; Note: Date Diagnosed: 12/18/2022 1:41 PM (477.8) Note: Date Diagnosed: 12/18/2022 1:41 PM (477.8) ; Start Date : 12/18/2022 Allergic rhinitis: Due to other allergen; Note: Date Diagnosed: 12/05/2022 3:38 PM (477.8) Note: Date Diagnosed: 12/05/2022 3:38 PM (477.8) ; Start Date : 12/05/2022 Allergic rhinitis: Due to other allergen; Note: Date Diagnosed: 11/23/2022 12:00 PM (477.8) Note: Date Diagnosed: 11/23/2022 12:00 PM (477.8) ; Start Date : 11/23/2022 Allergic rhinitis: Due to other allergen; Note: Date Diagnosed: 11/06/2022 9:38 AM (477.8) Note: Date Diagnosed: 11/06/2022 9:38 AM (477.8) ; Start Date : 11/06/2022 Allergic rhinitis: Due to other allergen; Note: Date Diagnosed: 10/12/2022 3:40 PM (477.8) Note: Date Diagnosed: 10/12/2022 3:40 PM (477.8) ; Start Date : 10/12/2022 Allergic rhinitis: Due to other allergen; Note: Date Diagnosed: 09/27/2022 1:13 PM (477.8) Note: Date Diagnosed: 09/27/2022 1:13 PM (477.8) ; Start Date : 09/27/2022 Allergic rhinitis: Due to other allergen; Note: Date Diagnosed: 09/12/2022 3:40 PM (477.8) Note: Date Diagnosed: 09/12/2022 3:40 PM (477.8) ; Start Date : 09/12/2022 Allergic rhinitis: Due to other allergen; Note: Date Diagnosed: 08/29/2022 1:58 PM (477.8) Note: Date Diagnosed: 08/29/2022 1:58 PM (477.8) ; Start Date : 08/29/2022 Allergic rhinitis: Due to other allergen; Note: Date Diagnosed: 06/19/2022 10:25 AM (477.8) Note: Date Diagnosed: 06/19/2022 10:25 AM (477.8) ; Start Date : 06/19/2022 Allergic rhinitis: Due to other allergen; Note: Date Diagnosed: 06/05/2022 10:55 AM (477.8) Note: Date Diagnosed: 06/05/2022 10:55 AM (477.8) ; Start Date : 06/05/2022 Allergic rhinitis: Due to other allergen; Note: Date Diagnosed: 05/25/2022 2:28 PM (477.8) Note: Date Diagnosed: 05/25/2022 2:28 PM (477.8) ; Start Date : 05/25/2022 Allergic rhinitis: Due to other allergen; Note: Date Diagnosed: 04/10/2022 3:58 PM (477.8) Note: Date Diagnosed: 04/10/2022 3:58 PM (477.8) ; Start Date : 04/10/2022 Allergic rhinitis: Due to other allergen; Note: Date Diagnosed: 03/22/2022 4:12 PM (477.8) Note: Date Diagnosed: 03/22/2022 4:12 PM (477.8) ; Start Date : 03/22/2022 Allergic rhinitis: Due to other allergen; Note: Date Diagnosed: 03/01/2022 10:54 AM (477.8) Note: Date Diagnosed: 03/01/2022 10:54 AM (477.8) ; Start Date : 03/01/2022 Allergic rhinitis: Due to other allergen; Note: Date Diagnosed: 01/16/2022 11:55 AM (477.8) Note: Date Diagnosed: 01/16/2022 11:55 AM (477.8) ; Start Date : 01/16/2022 Allergic rhinitis: Due to other allergen; Note: Date Diagnosed: 01/11/2022 1:31 PM (477.8) Note: Date Diagnosed: 01/11/2022 1:31 PM (477.8) ; Start Date : 01/11/2022 Allergic rhinitis: Due to other allergen; Note: Date Diagnosed: 12/28/2021 3:54 PM (477.8) Note: Date Diagnosed: 12/28/2021 3:54 PM (477.8) ; Start Date : 12/28/2021 Allergic rhinitis: Due to other allergen; Note: Date Diagnosed: 12/21/2021 12:10 PM (477.8) Note: Date Diagnosed: 12/21/2021 12:10 PM (477.8) ; Start Date : 12/21/2021 Allergic rhinitis: Due to other allergen; Note: Date Diagnosed: 12/08/2021 2:10 PM (477 Not Available [facility] 4 01:08:11 Perennial allergic rhinitis 235873743 Active 2023 YOANNA SAINZ [address] [facility],[address], [address] , [place] - [facility] 14:51:26 Problem Notes None recorded. Procedures Surgical History Date Name Laterality Status Provider Name and Address Organization Details Recorded Time 10/16/19 24 Allergy Immunotherapy Injections completed YOANNA SAINZ [address] [facility] [place] [address], [place], [address], [facility] - [facility] 10/16/2023 16:51:03 09/25/19 24 Allergy Immunotherapy Injections completed KAROLINE KELLY RN 100 [facility],[place] [address], [place], [address], [facility] - [facility] 09/25/2023 11:18:43 08/13/19 24 Allergy Immunotherapy Injections completed YOANNA SAINZ 100 [facility],[place] [address], [place], [address], [facility] - [facility] 08/13/2023 15:02:29 07/18/19 24 Allergy Immunotherapy Injections completed YOANNA SAINZ 100 [facility],[address], [address], [facility] - [facility] [place] 07/18/2023 14:51:59 Imaging Results Imaging Date Name Status LastModified by Organiz ation Details LastModified Time 09/20/2022 imaging/diag nostic result completed Information not available 10/16/2023 19:51:15 01/29/2022 imaging/diag nostic result completed Information not available 10/16/2023 19:52:24 Procedure Notes None recorded. Medical Equipment None Reported. Medications Name Sig Start Date Stop Date Status Note LastModified by Organization Details LastModified Time cyclobenz aprine 10 mg tablet TAKE 1 TABLET BY MOUTH TWICE A DAY NEEDED FOR MUSCLE SPASM active Not Available Not Available No t Available clotrimaz ole 10 mg glen TAKE 1 GLEN 4 TIMES DAILY, DISSOLVE IN MOUTH active Not Available Not Available No t Available atorvasta tin 80 mg tablet 02/07 completed Medicati on ID: [id number] Dur ation Value: 30 Reason: () Brand Name: atorvast atin Sen d Method: E-Prescr ibed Sub s Allowed: subs OK Speci al Instruct ion: TAKE 1 TABLET BY MOUTH EVERY DAY Medi cationGe nericNam e: atorvast atin Not Available Not Available Not Available prednison e 10 mg tablet by mouth 2021 active Medicati on ID: [id number] D uration Value: 12 Brand Name: predniso ne Send Method: E-Prescr ibed Sub s Allowed: subs OK Speci al Instruct ion: Predniso ne 4 pills x3 days 3 pills x 3 days 2 pills x3 pills 1 pill for 3 pills Me dication GenericN sherwin: predniso ne Not Available Not Available Not Available ketoconaz ole 2 % shampoo PLEASE SEE ATTACHED FOR DETAILED DIRECTIO NS active Not Available Not Available No t Available clindamyc in HCl 300 mg capsule 1 capsule by mouth 2013 active Medicati on ID: [id number] Dur ation Value: 10 Prescri bed By Name: Rosie Gao rd, nd Name: clindamy taz HCl Send Method: E-Prescr ibed Sub s Allowed: subs OK Medic ationGen ericName : clindamy taz HCl Not Available Not Available Not Available albuterol sulfate 2.5 mg/3 mL (0.083 %) solution for nebulizat ion USE 1 VIAL VIA NEBULIZE R EVERY 4 HOURS NEEDED FOR SHORTNES S OF BREATH OR WHEEZING active Not Available Not Available No t Available azithromy taz 250 mg tablet TAKE 1 TABLET BY MOUTH 3 TIMES A WEEK ON MON/WED/ FRI active Not Available Not Available No t Available tizanidin e 4 mg tablet 2016 active Medicati on ID: [id number] D uration Value: 30 Brand Name: tizanidi ne Send Method: E-Prescr ibed Sub s Allowed: subs OK Speci al Instruct ion: TAKE 1 TABLET BY MOUTH EVERY 8 HOURS. START WITH 1/2 TABLET AT NIGHT A ND INCREASE DIRECTED Medicat ionGener icName: tizanidi ne Not Available Not Available Not Available hydrocodo ne 5 mg-acetam inophen 325 mg tablet 03/16 completed Medicati on ID: [id number] Dur ation Value: 16 Reason: () Brand Name: hydrocod one-acet aminophe n Send Method: E-Prescr ibed Sub s Allowed: subs OK Medic ationGen ericName : hydrocod one-acet aminophe n Not Available Not Available Not Available meloxicam 15 mg tablet TAKE 1 TABLET BY MOUTH EVERY DAY FOR 30 DAYS active Not Available Not Available No t Available ondansetr on HCl 4 mg tablet TAKE 1 TABLET ORALLY DAILY NEEDED FOR NAUSEA AND VOMITING active Not Available Not Available No t Available prednison e 20 mg tablet TAKE 1 TABLET (20 MG TOTAL) BY MOUTH DAILY FOR 5 DAYS. active Not Available Not Available No t Available alendrona te 70 mg tablet PLEASE SEE ATTACHED FOR DETAILED DIRECTIO NS active Not Available Not Available No t Available prednison e 5 mg tablet PLEASE SEE ATTACHED FOR DETAILED DIRECTIO NS active Not Available Not Available No t Available hydroxyzi ne pamoate 50 mg capsule TAKE 1 CAPSULE (50 MG) BY MOUTH EVERY 6 (SIX) HOURS IF NEEDED FOR ITCHING. active Not Available Not Available No t Available amlodipin e 5 mg tablet TAKE 1 TABLET BY MOUTH AT BED TIME. active Not Available Not Available No t Available omeprazol e 40 mg capsule,d elayed release TAKE 1 CAPSULE BY MOUTH ONCE A DAY TAKE ONE CAPSULE BY MOUTH ONCE A DAY BEFORE MEALS active Not Available Not Available No t Available aspirin 81 mg tablet,de layed release 03/16 completed Medicati on ID: [id number] Dur ation Value: 30 Reason: () Brand Name: aspirin Send Method: E-Prescr ibed Sub s Allowed: subs OK Medic ationGen ericName : aspirin Not Available Not Available Not Available tramadol 50 mg tablet TAKE 1 TABLET (50 MG TOTAL) BY MOUTH EVERY 6 HOURS NEEDED FOR PAIN active Not Available Not Available No t Available temazepam 7.5 mg capsule TAKE 1 CAPSULE (7.5 MG) BY MOUTH IF NEEDED AT BEDTIME FOR SLEEP. active Not Available Not Available No t Available acetamino phen ER 650 mg tablet,ex tended release TAKE 1 TABLET BY MOUTH EVERY 8 HOURS NEEDED active Not Available Not Available No t Available citalopra m 20 mg tablet 03/16 completed Medicati on ID: [id number] D uration Value: 30 Reason: () Brand Name: citalopr am Send Method: E-Prescr ibed Sub s Allowed: subs OK Speci al Instruct ion: TAKE 1 TABLET BY MOUTH EVERY DAY Medi cationGe nericNam e: citalopr am Not Available Not Available Not Available Anafranil 50 mg capsule 2020 active Medicati on ID: [id number] B rand Name: Anafrani l Send Method: E-Prescr ibed Sub s Allowed: subs OK Medic ationGen ericName : Anafrani l Not Available Not Available Not Available fluvoxami ne 100 mg tablet TAKE 1 TABLET BY MOUTH TWICE A DAY active Not Available Not Available No t Available erythromy taz 5 mg/gram (0.5 %) eye ointment APPLY TWICE DAILY TO INCISION OF UPPER EYELID. active Not Available Not Available No t Available cyanocoba ramone (vit B-12) 1,000 mcg/mL injection solution INJECT 1 ML ONCE A MONTH DIRECTED active Not Available Not Available No t Available buspirone 10 mg tablet TAKE 1 TABLET BY MOUTH TWICE A DAY active Not Available Not Available No t Available Advair Diskus 250 mcg-50 mcg/dose powder for inhalatio n INHALE 1 PUFF EVERY 12 HOURS active Not Available Not Available No t Available Calcium-6 00 600 mg (as calcium carbonate 1,500 mg) tablet 2019 active Medicati on ID: [id number] B rand Name: Calcium 600 Send Method: E-Prescr ibed Sub s Allowed: subs OK Medic ationGen ericName : Calcium 600 Not Available Not Available Not Available fluoxetin e 10 mg capsule TAKE 1 CAPSULE BY MOUTH ONCE A DAY FOR 7 DAY, THEN 2 CAPSULES ONCE A DAY active Not Available Not Available No t Available docusate sodium 100 mg capsule TAKE 1 CAPSULE BY MOUTH TWICE A DAY NEEDED CONSTIPA TION active Not Available Not Available No t Available sertralin e 25 mg tablet TAKE 25MG DAILY FOR 1 WEEK, THEN INCREASE TO 50MG DAILY FOR 1 WEEK, THEN INCREASE TO 100MG DAILY active Not Available Not Available No t Available omeprazol e 20 mg capsule,d elayed release TAKE 1 CAPSULE BY MOUTH EVERY DAY BEFORE A MEAL active Not Available Not Available No t Available budesonid e 0.5 mg/2 mL suspensio n for nebulizat ion INHALE 0.5 MG (2 ML) INHALED DAILY FOR 30 DAYS active Not Available Not Available No t Available monteluka st 10 mg tablet TAKE 1 TABLET BY MOUTH EVERY DAY active Not Available Not Available No t Available hydroxyzi ne HCl 25 mg tablet TAKE 1 TABLET (25 MG) BY MOUTH IF NEEDED IN THE MORNING, AT NOON, AND AT BEDTIME FOR ITCHING. active Not Available Not Available No t Available codeine 10 mg-guaife nesin 100 mg/5 mL oral liquid TAKE 10ML BY MOUTH EVERY 6 HOURS NEEDED COUGH 10 DAYS active Not Available Not Available No t Available furosemid e 20 mg tablet active Not Available Not Available Not Available fluvoxami ne 50 mg tablet TAKE 1 TABLET BY MOUTH TWICE A DAY active Not Available Not Available No t Available lorazepam 1 mg tablet TAKE 1 TABLET BY MOUTH EVERY DAY NEEDED active Not Available Not Available No t Available azelastin e 137 mcg (0.1 %) nasal spray USE 2 SPRAYS NASALLY TWICE A DAY DIRECTED active Not Available Not Available No t Available Viagra 100 mg tablet TAKE 1 TABLET 1 HOUR BEFORE SEXUAL RELATION S ONCE DAILY NEEDED. active Not Available Not Available No t Available Nasonex 50 mcg/actua tion [place] 2 spray into both nostrils 2016 active Medicati on ID: [id number] D uration Value: 30 Prescri bed By Name: DAYANNA Liang nd Name: Nasonex Send Method: E-Prescr ibed Sub s Allowed: subs OK Medic ationGen ericName : Nasonex Not Available Not Available Not Available zolpidem 10 mg tablet TAKE 1 TABLET BY MOUTH EVERY DAY AT BEDTIME NEEDED FOR SLEEP active Not Available Not Available No t Available methylpre dnisolone 4 mg tablets in a dose pack TAKE 6 TABLETS ON DAY 1 DIRECTED ON PACKAGE AND DECREASE BY 1 TAB EACH DAY FOR A TOTAL OF 6 DAYS active Not Available Not Available No t Available labetalol 100 mg tablet 03/16 completed Medicati on ID: [id number] D uration Value: 30 Reason: () Brand Name: labetalo l Send Method: E-Prescr ibed Sub s Allowed: subs OK Speci al Instruct ion: TAKE 1 TABLET BY MOUTH TWICE A DAY Medi cationGe nericNam e: labetalo l Not Available Not Available Not Available fluticaso ne propionat e 50 mcg/actua tion nasal spray,marla pension 2 puff 2021 active Medicati on ID: [id number] D uration Value: 30 Prescri bed By Name: Kavon Phoenix MD Brand Name: fluticas one propiona te Send Method: E-Prescr ibed Sub s Allowed: subs OK Medic ationGen ericName : fluticas one propiona te Not Available Not Available Not Available ipratropi um bromide 21 mcg (0.03 %) nasal spray [place] 2 spray into both nostrils three times a day 2022 active Medicati on ID: [id number] D uration Value: 30 Brand Name: ipratrop ium bromide Send Method: E-Prescr ibed Sub s Allowed: subs OK Speci al Instruct ion: 2 sprays in each nostril 1-3 times a day Medi cationGe nericNam e: ipratrop ium bromide Not Available Not Available Not Available finasteri de 5 mg tablet 03/16 completed Medicati on ID: [id number] D uration Value: 30 Reason: () Brand Name: finaster kristie Send Method: E-Prescr ibed Sub s Allowed: subs OK Speci al Instruct ion: TAKE 1 TABLET BY MOUTH Saturday AND SATURDAY Rosalinda Conrad Name: finaster kristie Not Available Not Available Not Available loratadin e 10 mg tablet TAKE 1 TABLET BY MOUTH EVERY DAY active Not Available Not Available No t Available amoxicill in 875 mg-potass ium clavulana te 125 mg tablet TAKE 1 TABLET ORALLY 2 TIMES A DAY FOR 14 DAYS active Not Available Not Available No t Available Ventolin HFA 90 mcg/actua tion aerosol inhaler INHALE 2 PUFFS BY MOUTH EVERY 6 HOURS NEEDED FOR WHEEZING active Not Available Not Available No t Available oxycodone 5 mg tablet TAKE 1 TABLET (5 MG) BY MOUTH EVERY 4 (FOUR) HOURS IF NEEDED FOR SEVERE PAIN FOR UP TO 28 DAYS. active Not Available Not Available No t Available Augmentin XR 1,000 mg-62.5 mg tablet,ex tended release 2 tablet by mouth 2016 active Medicati on ID: [id number] D uration Value: 7 Prescri bed By Name: DAYANNA Liang nd Name: Augmenti n XR Send Method: E-Prescr ibed Sub s Allowed: subs OK Medic ationGen ericName : Augmenti n XR Not Available Not Available Not Available ezetimibe 10 mg tablet TAKE 1 TABLET BY MOUTH EVERY DAY IN THE EVENING active Not Available Not Available No t Available Vitamin D3 25 mcg (1,000 unit) tablet 2013 active Medicati on ID: [id number] Dur ation Value: 30 Brand Name: Vitamin D3 Send Method: E-Prescr ibed Sub s Allowed: subs OK Speci al Instruct ion: TAKE 1 TABLET BY MOUTH EVERY DAY Medi cationGe nericNam e: Vitamin D3 Not Available Not Available Not Available guaifenes in 400 mg tablet 1 tablet by mouth 2016 active Medicati on ID: [id number] D uration Value: 10 Prescri bed By Name: DAYANNA Liang nd Name: guaifene sin Send Method: E-Prescr ibed Sub s Allowed: subs OK Medic ationGen ericName : guaifene sin Not Available Not Available Not Available oxymetazo line 0.05 % nasal spray 03/16 completed Medicati on ID: [id number] P rescribe d By Name: DAYANNA Liang nd Name: oxymetaz oline Se nd Method: E-Prescr ibed Sub s Allowed: subs OK Speci al Instruct ion: 2 sprays in each nostril once daily. Only use for 3 days. Me dication GenericN sherwin: oxymetaz oline Not Available Not Available Not Available rosuvasta tin 20 mg tablet TAKE 1 TABLET BY MOUTH EVERY DAY active Not Available Not Available No t Available bupropion HCl XL 150 mg 24 hr tablet, extended release 10/24 completed Medicati on ID: [id number] B rand Name: bupropio n HCl Send Method: E-Prescr ibed Sub s Allowed: subs OK Speci al Instruct ion: TAKE 1 TABLET BY MOUTH EVERY MORNING Medicati onGeneri cName: bupropio n HCl Not Available Not Available Not Available Fosamax Plus D 70 mg-2,800 unit tablet 2019 active Medicati on ID: [id number] B rand Name: Fosamax Plus D Send Method: E-Prescr ibed Sub s Allowed: subs OK Medic ationGen ericName : Fosamax Plus D Not Available Not Available Not Available zolpidem ER 6.25 mg tablet,ex tended release,m ultiphase TAKE ONE TABLET BY MOUTH AT BEDTIME NEEDED FOR SLEEP, DO NOT BREAK, CRUSH, DISSOLVE OR CHEW active Not Available Not Available No t Available BD Integra Syringe 3 mL 25 gauge x 1 USE 1 SYRINGE BY INTRAMUS CULAR ROUTE ONCE A MONTH FOR VITMAIN B12 INJECTIO NS active Not Available Not Available No t Available CoQ-10 30 mg capsule 10/24 completed Medicati on ID: [id number] B rand Name: CoQ-10 S end Method: E-Prescr ibed Sub s Allowed: subs OK Medic ationGen ericName : CoQ-10 Not Available Not Available Not Available Zyrtec 10 mg capsule 2013 active Medicati on ID: [id number] Bra nd Name: Zyrtec S end Method: E-Prescr ibed Sub s Allowed: subs OK Speci al Instruct ion: take 1 tablet by mouth everyday Medicat ionGener icName: Zyrtec Not Available Not Available Not Available B12 09/13 completed Medicati on ID: [id number] B rand Name: b12 Send Method: E-Prescr ibed Sub s Allowed: subs OK Medic ationGen ericName : b12 Not Available Not Available Not Available Dulera 200 mcg-5 mcg/actua tion HFA aerosol inhaler 2 puff 2019 active Medicati on ID: [id number] D uration Value: 90 Brand Name: Dulera S end Method: E-Prescr ibed Sub s Allowed: subs OK Medic ationGen ericName : Dulera Not Available Not Available Not Available Vitamin D3 50 mcg (2,000 unit) capsule TAKE 1 CAPSULE BY MOUTH EVERY DAY active Not Available Not Available No t Available roflumila st 500 mcg tablet TAKE 1 TABLET BY MOUTH EVERY DAY active Not Available Not Available No t Available Bydureon BCise 2 mg/0.85 mL subcutane ous auto-inje ctor INJECT 1 PEN (2 MG) UNDER THE SKIN 1 (ONE) TIME PER WEEK. active Not Available Not Available No t Available Vitals None Recorded Social History None recorded. Functional Status None recorded. Mental Status None recorded. Family History Nothing Reported. Medical History No medical history recorded. Past Encounters Encounter ID Performer Location Encounter Start Date Encounter Closed Date Diagnosis/Indication Diagnosis SNOMED-CT Code Diagnosis ICD10 Code [id number] KAT SAINZAdela [facility] [address] [address] 07/18/2023 14:48:19 07/18/2023 15:28:24 Perennial allergic rhinitis 390299098 J30.89 [id number] WILMAN LAWRENCE MD [facility] 100 [place] [address] 07/23/2023 13:05:54 07/23/2023 13:46:22 Allergic rhinitis 95006141 J30.9 Nasal congestion 1456978 0 R09.81 Posterior rhinorrhea 758 91441 R09.82 [id number] COOKIE MENG [facility] Allergy 100 [facility] 100 [place] [address] 08/13/2023 14:55:05 08/13/2023 15:27:43 Perennial allergic rhinitis [id number] J30.89 [id number] KAROLINE KELLY RN Allergy [address] [place] [address] 09/25/2023 10:48:16 09/25/2023 11:19:33 Perennial allergic rhinitis [id number] J30.89 [id number] COOKIE MENG [facility] Allergy [address] [place] [address] 10/16/2023 15:40:04 10/16/2023 17:27:25 Perennial allergic rhinitis [id number] J30.89 Health Concerns Section Related Observation LastModified by Organization Detai ls LastModified Time None Recorded Concern Status LastModified by Organization Details LastModified Time None Recorded Advance Directives Directive None Recorded Payers Encounter Date Sequence Insurance Name Policy Number Policy Aranda Covered Member ID Aranda Member ID Guarantor Name 07/18/2023 2 [place] [id number] Henri Espino [id number] Henri Espino 07/18/2023 1 [place] Henri Espino [id number] 1 Henri Espino 07/23/2023 2 [place] [id number] Henri Espino [id number] Henri Espino 07/23/2023 1 [place] Henri Espino [id number] 1 Henri Espino 08/13/2023 2 [place] [id number] Henri Espino [id number] Henri Espino 08/13/2023 1 [place] [place] Henri Espino [id number] 1 Henri Espino 09/25/2023 2 [place] [id number] Henri Espino [id number] Henri Espino 09/25/2023 1 [place] [place] Henri Espino [id number] 1 Henri Espino 10/16/2023 2 [place] [id number] Henri Espino [id number] Henri Espino 10/16/2023 1 [place] [place] Henri Espino [id number] 1 Henri Espino Notes Date Note Type Note Provider Name and Address Organization Details Recorded Time 07/23/2023 text/html 63-year-old male presents for allergy review. He is currently on once monthly allergy shot. Has been for 2 months. Takes Zyrtec for occasional breakthrough symptoms. Overall feeling his allergies are well-controlled. WILMAN LAWRENCE MD [address] [place] [address], [phone], [facility] - [facility] 07/23/2023 14:46:30
--- OUTSIDE RECORDS SUMMARY | 2024-02-05 01:49 | XMS_ITS | Continuity of Care Document ---
Author Organization [facility] Address [address] [place] [address] Phone Care Team Providers Care Airline Lounge Receptionist Name Role Phone Adria LACKEY, RVT, LEÓN, [...] (unknown strength) Not Available - Active VITAMIN [id number] ACID (unknown strength) Not Available - Active [...] E&M Established 15 Mins [facility], [address] [place] [address] Dr Arshad 1000[facility] [address], [id number], [place] tel:[phone] CVR - [facility] Cramp and spasmRestless legs syndromeEssent ial (primary) hypertensionPa in in left lower legPain in left legLocalized edema 4 Adria LACKEY, RVT, LEÓN Torres. [address] [place] [address], [place], [place], [id number] , [place]. tel:[phone] Referring Provider: Handy Mckeon, [address] [place] [address], [address]. tel:[phone] [facility], [address] [place] [address] Dr Arshad [address] [address], [place], [id number], [place] tel:[phone] CVR - [facility] Encounter for follow-up examination after completed treatment for conditions other than malignant neVaricose veins of right lower extremity with pain 3 Asim LACKEY FACS RVT LEÓN [place]. [address] [place] [address], [place], [address], [place]. tel:[phone] Referring Provider: Handy Mckeon, [address], [address]. tel:[phone] [facility], [address] [place] [address] Dr Arshad [address], [place], [id number], [place] tel:[phone] CVR - [place] [facility] [place] Varicose veins of right lower extremity with other complications Jan-0 3 Doreen De Paz . [address] [facility], [place] [address], [place], [place], [id number] , [place]. tel:[phone] Referring Provider: Handy Mckeon, [address], [address]. tel:[phone] [facility], [address] [place] [address] Dr Arshad [address] [address], [id number], [place] tel:[phone] CVR - [place] Varicose veins of right lower extremity with other complications 3 Asim LACKEY FACS Ralf Del Cid. [address] [place] [address], [place], [address], [place]. [phone] Referring Provider: Handy Mckeon, [address] [place] [address], [address]. tel:[phone] Office/Outpt E&M Established 25 Mins [facility], [address] [place] [address] Dr Arshad [address] [address], [id number], [place] tel:[phone] CVR - [place] [facility] [place] Chronic venous hypertension (idiopathic) with other complications of bilateral lower extremity Nov- 3 Asim LACKEY FACS Ralf [facility]. [address] [place] [address], [place], [address], [place]. tel:[phone] Referring Provider: Handy Mckeon, [address], [address]. tel:[phone] Office/Outpt E&M Established 10 Mins - [facility], [address] [place] [address] Dr Arshad [address] [address], [id number], [place] tel:[phone] CVR - [place] [facility] [place] Venous insufficiency (chronic) (peripheral) Apr-2 6-202 3 Asim LACKEY FACS T [facility]. [facility]0 [facility], [place] [address], [place], [address], [place]. tel:[phone] Referring Provider: Handy Mckeon, [address] [place] [address], [address]. tel:[phone] Office/Outpt E&M Established 15 Mins [facility], [address] [place] [address] [address] [address], [place], [id number], [place] [phone] CVR - [place] Venous insufficiency (chronic) (peripheral) 3 Asim LACKEY FACS [facility]. [address] [place] [address], [place], [address], [place]. [phone] Referring Provider: Handy Mckeon, [address] [place] [address], [address]. tel:[phone] [facility], [address] [place] [address] Dr Arshad [address], [place], [id number], [place] tel:[phone] CVR - [place] Venous insufficiency (chronic) (peripheral) 3 Asim LACKEY [facility]. [address] [place] [address], [place] [address], [place], [address], [place]. [phone] Referring Provider: Blanka Dailey MD FACS [facility], [address] [place] [address], [place], [address]. tel:[phone] Office/Oupt E&M New Pt 30 Mins [facility], [address] [place] [address] Dr Arshad [address] [address], [id number], [place] tel:[phone] CVR - [place] Venous insufficiency (chronic) (peripheral)Lo calized edemaRestless legs syndromeEssent ial (primary) hypertensionPr uritus, unspecifiedFla il joint, unspecified jointPain in right legPain in left legPain in right lower legPain in left lower legCramp and spasm Asim LACKEY FACS RVT RPTEREZA Del [facility]. [address] [facility], [address], [facility] [place], [address], [place]. tel:[phone] Referring Provider: Blanka Dailey MD FACS RVT [facility], [address] [facility] [address], [place], [address]. tel:[phone] Family History Family Member Type Diagnosis Age At Onset No Information Payers Payer name Insurance type Covered constitution party ID Authoriza tion(s) Medicare BIANKA MB [id number] BCBS BIANKA [id number] Social History Type Description Quantity Date Captured [...] Information Instructions Date Instruction Additional Infor mation Patient education booklet given Related to Pain in left lower leg Diet education Related to Body mass index (BMI) 40.0-44.9, adult Lifestyle education Related to B sara mass index (BMI) 40.0-44.9, adult Giving Encouragement to exercise Related to Body mass index (BMI) 40.0-44.9, adult Patient education booklet given Related to Venous insufficiency (chronic) (peripheral) Lifestyle education Related to B sara mass index (BMI) 40.0-44.9, adult Giving Encouragement to exercise Related to Body mass index (BMI) 40.0-44.9, adult Diet education Related to Body mass index (BMI) 40.0-44.9, adult Assessments Type Assessment Date No Information Patient Care Teams Name Effective Dates (start - stop) Status Members No Information
== END 2024-01-30 11:43 | disposition home or self-care (01) ==
PROVIDERS: PCP Family Medicine; Visit Provider Hospitalist
DX: G47.33 Obstructive sleep apnea (adult) (pediatric) (principal); Z99.89 Dependence on other enabling machines and devices; J44.9 Chronic obstructive pulmonary disease, unspecified; R53.1 Weakness; J01.90 Acute sinusitis, unspecified
CPT/HCPCS: 99215; G2211

== ENCOUNTER 2024-03-23 15:37 | Outpatient (REF) | payer MEDICARE, SELFPAY ==
--- NOTE | ~2024-03-23 | XR_ITS ---
EXAMINATION: XR CHEST CLINICAL INFORMATION: SOB after a fall. COMPARISON: Chest 12/20/2023 TECHNIQUE: 2 views of the chest were obtained. FINDINGS: The lungs are hyperinflated with platelike atelectasis in the lingula. Rest of lungs are clear. The heart size and pulmonary vascularity is normal. There is mild spondylosis dorsal spine. XR/XR chest 2V IMPRESSION: Hyperinflated lungs with mild atelectatic changes in the lingula. Electronically signed by: Rasheed Jefferson MD 03/23/2024 05:00 PM LILLIE
--- NOTE | ~2024-03-23 | CT_ITS ---
EXAMINATION: CT HEAD WITHOUT CONTRAST CLINICAL INFORMATION: Incidental headache after fall in parking lot. COMPARISON: None available. TECHNIQUE: Contiguous axial imaging was performed from the skull base to vertex without intravenous administration of contrast. This CT examination was performed using dose optimization techniques as appropriate, variously including the following: *Automated exposure control *Adjustment of mA and/or kV according to patient size (this includes techniques or standardized protocols for targeted exams where dose is matched to indication/reason for exam; i.e. extremities or head) *Use of iterative reconstruction technique DLP: 853 mGy/cm. FINDINGS: There is no acute intra-axial, extra-axial bleed, masses or midline shift. There is no acute infarction in evolution. There is no edema. The spangler to white matter differentiation is maintained normal. The lateral ventricles are symmetrical in size and configuration with mild enlargement. Bone windows reveal no calvarial abnormality. There is mild mucoperiosteal thickening left maxillary sinus. There is a small retention cyst right posterior ethmoid sinus. Rest of paranasal sinuses are normal. There is mild deformity of left nasal bone likely old injury. The scalp soft tissues and the visualized nasal and maxillary soft tissues are normal. The mastoid sinuses are clear. CT/CT head/brain wo IV con IMPRESSION: No acute intracranial process. Chronic inflammatory changes left maxillary sinus. There is small retention cyst right posterior ethmoid sinus.. Electronically signed by: Rasheed Jefferson MD 03/24/2024 07:09 AM [facility]
[2024-03-23 16:25] LABS: MANUAL DIFF FLAG NO
[2024-03-23 17:08] LABS: Basophils Absolute Auto 0.1 X10*3/uL (0.0-0.2); Basophils Percent Auto 0.7 % (0-2); Eosinophils Absolute Auto 0.3 X10*3/uL (0.0-0.4); Eosinophils Percent Auto 2.6 % (0-4); Hematocrit 47.7 % (42.0-52.0); Hemoglobin 15.9 g/dl (14.0-18.0); Imm Gran Abs Auto 0.23 X10*3/uL (0.00-0.03); Imm Gran Pct Auto 2.4 % (0.0-0.4); Lymphocytes Absolute Auto 1.9 X10*3/uL (1.2-4.9); Mean Corpuscular HGB Conc 33.3 g/dl (31.0-36.0); Mean Corpuscular Hemoglobin 31.4 pg (27.0-33.0); Mean Corpuscular Volume 94.3 fL (80.0-98.0); Mean Platelet Volume 9.9 fL (9.4-12.4); Monocytes Percent Auto 10.3 % (2-11); Neutrophils Absolute Auto 6.4 x10*3/uL (2.0-8.3); Platelet Count 293 X10*3/uL (160-400); Red Blood Count 5.06 X10*6/uL (4.60-5.80); White Blood Count 9.8 X10*3/uL (4.8-10.8)
[2024-03-23 17:19] LABS: INTERNATIONAL NORM RATIO 0.9 (0.9-1.1)
[2024-03-23 17:22] LABS: Partial Thromboplastin Time 32.8 SEC (26.0-36.8)
[2024-03-23 17:27] LABS: Anion Gap 13 (12-20); Blood Urea Nitrogen 18 mg/dL (9-16); Calcium 9.4 mg/dL (8.4-10.2); Carbon Dioxide 23 mmol/L (22-29); Chloride 105 mmol/L (96-108); Estimated Glomerular Filt Rate 51; Glucose Random 92 mg/dL (60-115); Potassium 4.8 mmol/L (3.3-5.1); Sodium 136 mmol/L (135-145)
--- OUTSIDE RECORDS SUMMARY | 2024-03-23 19:34 | XMS_ITS | Encounter Summary ---
Author Organization [employer] Address [address] 7 [place] [address] Care Team Providers Care Deputy Chief Counsel Name Role Phone Handy Elias MD Primary Care Provider [phone] Reason for Visit * Reason Comments controlled substance treatment Encounter Details Date Type Department Care Team (Latest Contact Info) Description 03/05/2024 3:00 PM EST Clinical Support [facility] MED & PEDS [address] [place], [place] [phone] Tessa Cox, RN [address] [place], [place] Chronic pain syndrome Social History Tobacco Use Types Packs/Day Years Used Date Smoking Tobacco: Every Day Cigarettes Passive Smoke Exposure: Past Smokeless Tobacco: Never Comments:Smokes 5 to 10 cig a week now x the last 6 months. Housing Stability Answer Date Recorded What is your housing situation today? I have nancy arevalo 08/07/[address] you li ve. Do you have problems with any of the following? None of the above 08/07/2023 Food Insecurity Answer Date Recorded Within the past 12 months, y ou worried that your food would run out before you got money to buy more: Never True 08/07/2023 Within the past 12 months,th e food you bought just didn't last and you didn't have enough money to get more: Never True 01/2024 Transportation Answer Date Recorded In the past 12 months, has l ack of transportation kept you from medical appts, meetings, work or from getting things needed for daily living? No 08/07/2023 Utilities Answer Date Recorded In the past 12 months, has t he [employer], gas, oil or water [employer] threatened to shut off services in your home? No 08/07/2023 Sex and Gender Information Value Date Recorded Sex Assigned at Male 12/25/2021 10:18 AM EDT Legal Sex Male 10:18 AM EDT Gender Identity Male 12/25/2021 10:18 AM EDT Sexual Orientation Straight 12/25/2021 10 :18 AM EDT documented as of this encounter Progress Notes * Tessa Cox RN - 03/05/2024 3:00 PM EST S: BUILDING MAINTENANCE ENGINEER NV. Patient is taking Oxycodone 5mg q4-6hrs PRN. States has been taking medications as prescribed. Denies any adverse reactions. Last PCP visit was on 08/20/23. Temazepam not effective, restarted Ambien. Patient denies smoking, ETOH or illicit drugs use. Current pain level is 7/10 located in lower back, hips, knees and hands. Patient states Oxycododne provides about 50 % pain relief. Patient states he is taking Tylenol 500 mg BID for headaches and it is helping. Patient receives [facility]onein[facility] to [facility] knees at [facility] and hips at [facility], pain management. States it is helping a little . No questions/ concerns at this time. BUILDING MAINTENANCE ENGINEER Agreement renewed today. O: VSS. BUILDING MAINTENANCE ENGINEER tier 4. GUN STOCK CHECKER checked on 03/05/24. Pill count performed, patient has 44 Oxycodone at this time, 44 expected. Medications are not being overused. utox performed, positive for OXY only. .Fentanyl testing: negative Lot# [id number] Exp: 02-08-25 BPI updated today. Pain severity score of (X), activity interference score of (X). Previous BPI completed (10/04/22) with pain severity score of (6.5), activity interference score of (3). A: Chronic opioid and BZO use r/t chronic pain and anxiety. P: Patient to cont. with current medication regimen as needed and take medication only as directed.F/u for next BUILDING MAINTENANCE ENGINEER NV scheduled for 05/25/24 @ 3pm. PE with PCP 03/19/24. f/u sooner PRN. Patient verbalized understanding and agreed to plan. documented in this encounter Plan of Treatment Upcoming Encounters Date Type Department Care Team (Late st Contact Info) Description 05/08/2024 2:00 PM EDT Office Visit [facility] MED & PEDS [address] [place] [address] Handy Elias MD [address] [place] [address] 05/25/2024 3:00 PM EDT Telemedicine [facility] [address] [place] [address] Tessa Cox RN [address] [place] [address] documented as of this encounter Procedures Procedure Name Priority Date/Time Associated Diagnosis Comments POCT SAL-14 URINE DRUG SCREEN Routine 03/05/2024 3:06 PM EST Chronic pain syndrome documented in this encounter Results * POCT SAL-14 Urine Drug Screen (03/05/2024 3:06 PM EST) Oxycodone Screen, Urine Positive Urine Urine specimen obtained by clean catch procedure / Unknown 03/05/2024 3:06 PM EST Narrative Tessa Cox RN - 03/05/2024 3:06 PM EST Lot# [id number] Exp: 01-31-25 us Handy Elias MD POINT OF CARE TEST ENTER/ED IT ORDERABLES Final Result documented in this encounter Visit Diagnoses Diagnosis Chronic pain syndrome documented in this encounter Care Teams Deputy Chief Counsel Relationship Specialty Start Date End Date Handy Elias MD [address] [place] [address] PCP - General Internal Medicine 11/17/12 documented as of this encounter
--- OUTSIDE RECORDS SUMMARY | 2024-03-23 19:34 | XMS_ITS | Encounter Summary ---
Author Organization [employer] Address [address] [facility] 7 [place] [address] Care Team Providers Care Electrical Maintenance Worker Name Role Phone Handy Elias MD Primary Care Provider [phone] Reason for Visit * Reason Onset Date Comments Imaging 03/20/2024 Encounter Details Date Type Department Care Team ([facility] st Contact Info) Description 03/20/2024 Telephone [facility] CHC MED & PEDS [address] [place], [place] [phone] Handy Elias MD [address] [place], [place] [phone] Imaging Social History Tobacco Use Types Packs/Day Years [...] the past 12 months, has t he electric, gas, oil or water company threatened to shut off services in your home? No 08/07/2023 Internet Access Answer Date Recorded Internet Access Q1 Yes 03/19/2024 Internet Access Q2 Not on file 03/19/2024 Sex and Gender Information Value Date Recorded Sex Assigned at Male 12/25/2021 10:18 AM EDT Legal Sex Male 10:18 AM EDT Gender Identity Male 12/25/2021 10:18 AM EDT Sexual Orientation Straight 12/25/2021 10 :18 AM EDT documented as of this encounter Miscellaneous Notes * Telephone Encounter - Erin Meng RN - 03/20/2024 1:28 PM EST Telephone call returned to pt to clarify below message. Pt had a fall for which he was seen yesterday by Jada. Informed that abdominal US, CXR, and CT head were all ordered yesterday. Pt requesting that XR orders for right hand/wrist and right knee be added on as he is in excruciating pain and would like to get all imaging done together. Reports that he is already scheduled for US and CT next week and is planning on going to [facility] for XR.Informed I would send request to PCP. * Telephone Encounter - Diane Cooper - 03/20/2024 1:13 PM EST Tc from pt requesting to get a 2nd Xray done for right hand, right knee and chest. Pt requesting tospeak with pcp. documented in this encounter Plan of Treatment Upcoming Encounters Date Type Department Care Team (Late st Contact Info) Description 05/08/2024 2:00 PM EDT Office Visit [facility] MED [facility] PEDS [address] [place] [address] Handy Elias MD [address] [place] [address] 05/25/2024 3:00 PM EDT Telemedicine [facility] MED [facility] PEDS [address] [place] [address] Tessa Cox, MARITA [address] [place], [place] [phone] documented as of this encounter Visit Diagnoses Not on filedocumented in this encounter Care Teams Electrical Maintenance Worker Relationship Specialty Start Date End Date Handy Elias MD [address] [place] [address] PCP - General Internal Medicine 11/17/12 documented as of this encounter
--- OUTSIDE RECORDS SUMMARY | 2024-03-23 19:34 | XMS_ITS | Encounter Summary ---
Author Organization [employer] Address [address] [facility] 7 [place] [address] Care Team Providers Care Assisted Living Home Director Name Role Phone Handy Elias MD Primary Care Provider [phone] Reason for Visit * Reason Onset Date Comments Medication Question 08/01/2022 Encounter Details Date Type Department Care Team ([facility] st Contact Info) Description 08/01/2022 Telephone [facility] MEDICINE [address] [place] [address] Handy Elias MD [address] [place], [place] [phone] Medication Question Social History Tobacco Use Types Packs/Day Years Used Date Smoking Tobacco: Former Cigarettes Smokeless Tobacco: Never Housing Stability Answer Date Recorded What is [...] encounter Miscellaneous Notes * Telephone Encounter - Nia Pearcejia - 08/01/2022 12:12 PM EDT Tc from kb with pt on the line states [facility] [place] is currently out of stock of script for oxycodone 5 mg and is requesting an alternative or a pharmacy that has script. Pt is also requestinga call back from MANAGER ORACLE RN. Please contact at [phone] documented in this encounter Plan of Treatment Upcoming Encounters Date Type Department Care Team (Late st Contact Info) Description 05/08/2024 2:00 PM EDT Office Visit [facility] MED & PEDS [address] [place] [address] Handy Elias MD [address] [place] [address] 05/25/2024 3:00 PM EDT Telemedicine [facility] MED & PEDS [address] [place] [address] Tessa Cox, MARITA 505 [place] [address] documented as of this encounter Visit Diagnoses Not on filedocumented in this encounter Care Teams Assisted Living Home Director Relationship Specialty Start Date End Date Handy Elias MD [address] [place] [address] PCP - General Internal Medicine 11/17/12 documented as of this encounter
--- OUTSIDE RECORDS SUMMARY | 2024-03-23 19:34 | XMS_ITS | Clinical Summary ---
Author Organization [facility] Address [address] [place] [address] Phone Care Team Providers Care Acquisition Specialist Name Role Phone Handy Elias MD Primary Care Provider [phone] Allergies Active Allergy Reactions Criticality Noted Date Comments Bee Venom Other (see comments) 10/04/2020 Pineapple Other (see comments) 10/04/2020 Medications Acetaminophen Extra Strength 500 MG tablet Take 500 mg by mouth every 8 (eight) hours if needed 1 Active cyanocobalamin (VITAMIN B-12) 1000 MCG/ML injection INJECT 1 M[address] BY INTRAMUSCULAR ROUTE ONCE A MONTH 1 Active montelukast (SINGULAIR) 10 MG tablet Take 10 mg by mouth 1 (one) time each day 1 Active omeprazole (PriLOSEC) [address] capsule Take 1 capsule by mouth 1 (one) time each day Active Daliresp 500 MCG tablet Take 1 tablet by mouth 1 (one) time each day 1 Active zolpidem (AMBIEN) 10 MG tablet Comments: Patient Notes: TAKE ONE TABLET BY MOUTH ONCE A DAY Duration: 45 Active Calcium Carb-Cholecalc iferol 600-800 MG-UNIT tablet Take 1 tablet by mouth 1 (one) time each day 9 Active cholecalcifero l (VITAMIN D-3) 50 MCG (1999 UT) capsule Take by mouth 1 (one) time each day 1 Active dicyclomine (BENTYL) 10 MG capsule TAKE 1 CAPSULE BY MOUTH FOUR TIMES A DAY NEEDED SPASM 1 Active EPINEPHrine (EPIPEN) 0.3 MG/0.3ML injection syringe INJECT NEEDED FOR ANAPHYLAXIS FOR 2 DOSES 1 Active gabapentin (NEURONTIN) 300 MG capsule TAKE 1 CAPSULE BY MOUTH 2 TIMES A DAY NEEDED FOR PAIN 1 Active LORazepam (ATIVAN) 1 MG tablet Take 1 mg by mouth 1 (one) time each day if needed 1 Active oxyCODONE (ROXICODONE) 5 MG immediate release tablet TAKE 1 TABLET BY MOUTH EVERY 4 TO 6 HOURS NEEDED 1 Active rosuvastatin (CRESTOR) 20 MG tablet Take 20 mg by mouth 1 (one) time each day 1 Active sodium chloride 7 % nebulizer solution INHALE 4 ML VIA NEBULIZER TWICE A DAY X30 DAYS 1 Active Viagra 100 MG tablet TAKE 1 TABLET 1 HOUR BEFORE SEXUAL RELATIONS ONCE DAILY NEEDED. 1 Active tiZANidine (ZANAFLEX) 4 MG tablet 1 Active Advair Diskus 250-50 MCG/DOSE diskus inhaler INHALE 1 PUFF EVERY 12 HOURS 2 Active ondansetron (Zofran) 4 MG tablet Take 1 tablet (4 mg total) by mouth 1 (one) time each day 30 tablet 3 2 Active ProAir HFA 108 (90 Base) MCG/ACT inhaler INHALE 2 PUFFS INTO THE LUNGS EVERY 6 HOURS NEEDED FOR SHORTNESS OF BREATH/WHEEZING 2 Active budesonide (PULMICORT) 0.5 MG/2ML nebulizer solution Take 0.5 mg by nebulization 1 (one) time each day 2 Active azithromycin (ZITHROMAX) 250 MG tablet Take 1 tablet by mouth 3 (three) times a week 2 Active triamcinolone (KENALOG) 0.1 % cream APPLY THIN COAT TO AFFECTED AREA EVERY DAY 2 Active DOK 100 MG capsule Take 1 capsule by mouth if needed 2 Active ezetimibe (ZETIA) 10 MG tablet TAKE 1 TABLET BY MOUTH EVERY DAY IN THE EVENING 90 tablet 1 3 Active amLODIPine (NORVASC) 5 MG tablet Take 1 tablet (5 mg total) by mouth at bed time 90 tablet 3 3 Active Active Problems Problem Noted Date Diagnosed Date Chronic kidney disease, stage 2 (mild) 1 Dyslipidemia 10/04/2020 Essential hypertension 10/04/2020 Chronic obstructive pulmonary disease 07/06/2018 Chronic rhinitis 07/06/2018 Dyspnea 07/06/2018 Obstructive sleep apnea syndrome 07/06/2018 Hypertensive chronic kidney disease Resolved Problems Problem Noted Date Diagnosed Date Resolved Date Chronic kidney disease stage 3 10/04/2020 12/05/2022 Cigarette smoker 07/06/2018 12/05/2022 Family History Medical History Relation Comments Hypertension Mother Relation Status Comments Father Mother Social History Tobacco Use Types Packs/Day Years Used Date Smoking Tobacco: Every Day Cigarettes Smokeless Tobacco: Never Tobacco Cessation:Counseling Given: No Alcohol Use Standard Drinks/Week Comments No 0 (1 standard drink = 0.6 oz pur e alcohol) Sex and Gender Information Value Date Recorded Sex Assigned at Not on file Legal Sex Male 5:10 PM EST Gender Identity Not on file Sexual Orientation Not on file Last Filed Vital Signs Vital Sign Reading Time Taken Comments Blood Pressure 132/70 12/05/2022 4:16 PM EDT Pulse 96 12/05/2022 4:16 PM EDT Temperature - - Respiratory Rate - - Oxygen Saturation 96% 01/03/2022 1:21 PM EST Inhaled Oxygen Concentration - - Weight 131 kg (289 lb 12.8 oz) 12/05/2022 4:16 P M EDT Height 180.3 cm (5' 11 ) 03/09/2020 12:01 PM EST Body Mass Index 40.42 03/09/2020 12:01 PM EST Plan of Treatment Health Maintenance Due Date Last Done Comments Pneumococcal Vaccine: 65+ Ye ars (1 of 2 - PCV) 01/23/1966 Colorectal Cancer Screening: Annual FOBT 2007 Colorectal Cancer Screening: Colonoscopy 2007 Colorectal Cancer Screening: Sigmoidoscopy 2007 Hepatitis B Vaccine (1 of 3 - Risk 3-dose series) 2018 Influenza Vaccine (#1) 2023 1, 11/28/2019, 11/18/2017, Additional history exists [place] Care Teams Acquisition Specialist Relationship Specialty Start Date End Date Handy Elias MD PCP - General Internal Medicine 10/19/20
--- OUTSIDE RECORDS SUMMARY | 2024-03-23 19:34 | XMS_ITS | Encounter Summary ---
Author Organization [employer] Address [address] [place] [address] 7 [place] [address] Care Team Providers Care Professor Of Biological Sciences Name Role Phone Handy Elias MD Primary Care Provider [phone] Encounter Details Date Type Department Care Team (Late Contact Info) Description 10/10/2022 Orders Only [facility] MED & PEDS [address] [place], [place] [phone] Handy Elias MD [address] [place], [place] [phone] Social History Tobacco Use Types Packs/Day Years Used Date Smoking Tobacco: Every Day Cigarettes Smokeless Tobacco: Never Comments:Smokes 5 to 10 cig a week now x the last 6 months. Sex and Gender Information Value Date Recorded Sex Assigned at Male 12/25/2021 10:18 AM EDT Legal Sex Male 10:18 AM EDT Gender Identity Male 12/25/2021 10:18 AM EDT Sexual Orientation Straight 12/25/2021 10 :18 AM EDT documented as of this encounter Plan of Treatment Upcoming Encounters Date Type Department Care Team (Late st Contact Info) Description 05/08/2024 2:00 PM EDT Office Visit [facility] MED & PEDS [address] [place], [place] [phone] Handy Elias MD [address] [place] [address] 05/25/2024 3:00 PM EDT Telemedicine [facility] MED & PEDS [address] [place], [place] [phone] Tessa Cox, MARITA 505 [place] [address] documented as of this encounter Visit Diagnoses Not on filedocumented in this encounter Care Teams Professor Of Biological Sciences Relationship Specialty Start Date End Date Handy Elias MD [address] [place] [address] PCP - General Internal Medicine 11/17/12 documented as of this encounter
--- OUTSIDE RECORDS SUMMARY | 2024-03-23 19:34 | XMS_ITS | Encounter Summary ---
Author Organization [employer] Address 75 [facility] 7 [place] [address] Care Team Providers Care Octave Board Racker Name Role Phone Handy Elias MD Primary Care Provider [phone] Reason for Visit * Reason Onset Date Comments Med Refill 03/05/2024 Encounter Details Date Type Department Care Team ([facility] st Contact Info) Description 03/05/2024 Refill [facility] MED & PEDS [address] [place] [address] Tessa Cox, RN [address] [place] [address] Chronic pain syndrome Social History Tobacco Use [...] t he electric, gas, oil or water [employer] threatened to shut off services in your [...] 05/08/2024 2:00 PM EDT Office Visit [facility] MED & PEDS [address] [place] [address] Handy Elias MD [address] [place] [address] 05/25/2024 3:00 PM EDT Telemedicine [facility] MED & PEDS [address] [place] [address] Tessa Cox RN [address] [place] [address] documented as of this encounter Visit Diagnoses Diagnosis Chronic pain syndrome documented in this encounter Care Teams Octave Board Racker Relationship Specialty Start Date End Date Handy Elias MD [address] [place] [address] PCP - General Internal Medicine 11/17/12 documented as of this encounter
--- OUTSIDE RECORDS SUMMARY | 2024-03-23 19:34 | XMS_ITS | Encounter Summary ---
Author Organization [employer] Address [address] [facility] [address] 7[address] [place] [address] Care Team Providers Care Mussel Opener Name Role Phone Handy Elias MD Primary Care Provider [phone] Encounter Details Date Type Department Care Team (Latest Contact Info) Description 03/19/2024 Travel Social History Tobacco Use Types Packs/Day Years [...] Description 05/08/2024 2:00 PM EDT Office Visit [facility] MED & PEDS [address] [place] [address] Handy Elias MD [address] [place] [address] 05/25/2024 3:00 PM EDT Telemedicine [facility] MED & PEDS [address] [place] [address] Tessa Cox RN 505 [place] [address] documented as of this encounter Visit Diagnoses Not on filedocumented in this encounter Care Teams Mussel Opener Relationship Specialty Start Date End Date Handy Elias MD [address] [place] [address] PCP - General Internal Medicine 11/17/12 documented as of this encounter
--- OUTSIDE RECORDS SUMMARY | 2024-03-23 19:34 | XMS_ITS | Encounter Summary ---
Author Organization [employer] Address 75 [facility] 7 [place] [address] Care Team Providers Care Transformation Architect Name Role Phone Handy Elias MD Primary Care Provider [phone] Reason for Visit * Reason Comments Med Refill Encounter Details Date Type Department Care Team (Late st Contact Info) Description 03/12/2024 Refill [facility] MEDICINE [address] [place] [address] Handy Elias MD [address] [place], [place] [phone] Primary insomnia Social History Tobacco Use Types Packs/Day Years [...] the past 12 months, has t he [employer], oil or water company threatened to shut [...] Description 05/08/2024 2:00 PM EDT Office Visit [facility] MED & PEDS [address] [place] [address] Handy Elias MD [address] [place] [address] 05/25/2024 3:00 PM EDT Telemedicine [facility] MED & PEDS [address] [place] [address] Tessa Cox RN 505 [place] [address] documented as of this encounter Visit Diagnoses Diagnosis Primary insomnia Persistent disorder of initiating or maintaining sleep documented in this encounter Care Teams Transformation Architect Relationship Specialty Start Date End Date Handy Elias MD [address] [place] [address] PCP - General Internal Medicine 11/17/12 documented as of this encounter
--- OUTSIDE RECORDS SUMMARY | 2024-03-23 19:34 | XMS_ITS | Encounter Summary ---
Author Organization [facility] Address [address] [place] [address] Phone Care Team Providers Care Inshore Undersea Warfare Officer Name Role Phone Handy Elias MD Primary Care Provider [phone] Encounter Details Date Type Department Care Team (Late st Contact Info) Description 2022 Telephone [facility] [address] [place] [address] Christie Leone Social History Tobacco Use Types Packs/Day Years Used Date Smoking Tobacco: Every Day Cigarettes Smokeless Tobacco: Never Alcohol Use Standard Drinks/Week Comments No 0 (1 standard drink = 0.6 oz pur e alcohol) Sex and Gender Information Value Date Recorded Sex Assigned at Not on file Legal Sex Male 5:10 PM EST Gender Identity Not on file Sexual Orientation Not on file COVID-19 Exposure Response Date Recorded In the last 10 days, have yo u been in contact with someone who was confirmed or suspected to have Coronavirus/COVID-19? No / Unsure 01/01/2022 7:06 AM EST documented as of this encounter Miscellaneous Notes * Telephone Encounter - Christie Leone - 2022 4:12 PM EST Jenifer, PT advised. * Telephone Encounter - Christie Leone - 2022 2:43 PM EST This PT called in today with recent lab results from PCP. PT wanted to relay to Dr. Marie that his BUN is at a 29. He would like to be advise on what he should do next. documented in this encounter Plan of Treatment Not on file documented as of this encounter Visit Diagnoses Not on filedocumented in this encounter Care Teams Inshore Undersea Warfare Officer Relationship Specialty Start Date End Date Handy Elias MD PCP - General Internal Medicine 10/19/20 documented as of this encounter
--- OUTSIDE RECORDS SUMMARY | 2024-03-23 19:34 | XMS_ITS | Encounter Summary ---
Author Organization [employer] [facility] Address [address] [place] [address] Care Team Providers Care Flavor Tank Tender Name Role Phone Handy Elias MD Primary Care Provider [phone] Encounter Details Date Type Department Care Team (Late st Contact Info) Description 07/16/2022 Orders Only [facility] MED & PEDS [address] [place] [address] Nataliia Santos LPN Social History Tobacco Use Types Packs/Day Years Used Date Smoking Tobacco: Former Cigarettes Smokeless Tobacco: Never Sex and Gender Information Value Date Recorded Sex Assigned at Male 12/25/2021 10:18 AM EDT Legal Sex Male 10:18 AM EDT Gender Identity Male 12/25/2021 10:18 AM EDT Sexual Orientation Straight 12/25/2021 10 :18 AM EDT documented as of this encounter Plan of Treatment Upcoming Encounters Date Type Department Care Team (Late st Contact Info) Description 05/08/2024 2:00 PM EDT Office Visit [facility] MED & PEDS [address] [place] [address] Handy Elias MD [address] [place] [address] 05/25/2024 3:00 PM EDT Telemedicine [facility] MED & PEDS [address] [place] [address] Tessa Cox, MARITA [address] [place], [place] [phone] documented as of this encounter Visit Diagnoses Not on filedocumented in this encounter Care Teams Flavor Tank Tender Relationship Specialty Start Date End Date Handy Elias MD [address] [place] [address] PCP - General Internal Medicine 11/17/12 documented as of this encounter
--- OUTSIDE RECORDS SUMMARY | 2024-03-23 19:34 | XMS_ITS | Encounter Summary ---
Author Organization [email or web address] Address [address] [place] [address] 7 [place] [address] Care Team Providers Care Train Electronic Technician Name Role Phone Handy Elias MD Primary Care Provider Encounter Details Date Type Department Care Team (Late Contact Info) Description 08/29/2022 Orders Only [facility] MED & PEDS [address] [place], [place] [phone] Handy Elias MD [address] [place] [address] Social History Tobacco Use Types Packs/Day Years [...] Encounters Date Type Department Care Team (Late Contact Info) Description 05/08/2024 2:00 PM EDT Office Visit [facility] MED & PEDS [address] [place] [address] Handy Elias MD [address] [place], [place] [phone] 05/25/2024 3:00 PM EDT Telemedicine [facility] MED & PEDS [address] [place] [address] Tessa Cox RN [address] [place] [address] documented as of this encounter Visit Diagnoses Not on filedocumented in this encounter Care Teams Train Electronic Technician Relationship Specialty Start Date End Date Handy Elias MD [address] [place] [address] PCP - General Internal Medicine 11/17/12 documented as of this encounter
--- OUTSIDE RECORDS SUMMARY | 2024-03-23 19:34 | XMS_ITS | Encounter Summary ---
Author Organization [employer] Address [address] [facility] [address] [place] [address] Care Team Providers Care Carbonation Equipment Tender Name Role Phone Handy Elias MD Primary Care Provider [phone] Encounter Details Date Type Department Care Team (Latest Contact Info) Description 03/05/2024 Travel Social History Tobacco Use Types Packs/Day [...] 05/08/2024 2:00 PM EDT Office Visit [facility] MED & PEDS [address] [place] [address] Handy Elias MD 505 [place] [address] 05/25/2024 3:00 PM EDT Telemedicine [facility] MED & PEDS [address] [place] [address] Tessa Cox RN 505 [place] [address] documented as of this encounter Visit Diagnoses Not on filedocumented in this encounter Care Teams Carbonation Equipment Tender Relationship Specialty Start Date End Date Handy Elias MD [address] [place] [address] PCP - General Internal Medicine 11/17/12 documented as of this encounter
--- OUTSIDE RECORDS SUMMARY | 2024-03-23 19:34 | XMS_ITS | Encounter Summary ---
Author Organization [employer] Address 75 [facility] 7 [place] [address] Care Team Providers Care Senior Power Scheduler Name Role Phone Handy Elias MD Primary Care Provider [phone] Reason for Visit * Reason Onset Date Comments Med Refill 03/10/2024 Encounter Details Date Type Department Care Team (Late st Contact Info) Description 03/10/2024 Refill [facility] MEDICINE [address] [place] [address] Handy Elias MD [address] [place], [place] [phone] Chronic pain syndrome Social History Tobacco Use Types Packs/Day Years Used Date Smoking Tobacco: Every Day Cigarettes Passive Smoke Exposure: Past Smokeless Tobacco: Never Comments:Smokes 5 to 10 cig a week now x the last 6 months. Housing Stability Answer Date Recorded What is your housing situation today? I have nancykevin arevalo 08/07/[address] you [...] encounter Miscellaneous Notes * Telephone Encounter - Tiff Mathis - 03/10/2024 8:09 AM EST TC from pt requesting medication refill. Medications needing refill : oxyCODONE (Roxicodone) 5 MG immediate release tablet To be sent to: [facility]/pharmacy #[id number] - [place], [place] - [address] [facility] [place] [address] documented in this encounter Plan of Treatment Upcoming Encounters Date Type Department Care Team (Late st Contact Info) Description 05/08/2024 2:00 PM EDT Office Visit [facility] MED & PEDS [address] [place] [address] Handy Elias MD [address] [place] [address] 05/25/2024 3:00 PM EDT Telemedicine [facility] MED & PEDS [address] [place] [address] Tessa Cox RN [address] [place] [address] documented as of this encounter Visit Diagnoses Diagnosis Chronic pain syndrome documented in this encounter Care Teams Senior Power Scheduler Relationship Specialty Start Date End Date Handy Elias MD [address] [place] [address] PCP - General Internal Medicine 11/17/12 documented as of this encounter
--- OUTSIDE RECORDS SUMMARY | 2024-03-23 19:34 | XMS_ITS | Encounter Summary ---
Author Organization Formerly [facility] [employer] Address [address] [place] [address] 7 [place] [address] Care Team Providers Care Jockey Valet Name Role Phone Handy Elias MD Primary Care Provider [phone] Reason for Referral * Imaging (Routine) - Authorized Specialty Diagnoses / Procedures Referred By Contac t Referred To Contact Radiology Diagnoses Abnormal LFTs Procedures US Abdomen Complete Handy Elias MD [address] [place] [address] Phone: tel: fax: [address] Phone: tel: fax: Referral ID Status Reason Start Date Expiration Date V isits Requested Visits Authorized [id number] Authorized 03/19/2024 03/19/2025 1 1 * Imaging (Urgent) - Authorized Specialty Diagnoses / Procedures Referred By Contac t Referred To Contact Radiology Diagnoses Other headache syndrome Procedures CT Head w/o Contrast Handy Elias MD [address] [place] [address] Phone: tel: fax: [address] Phone: tel: fax: Referral ID Status Reason Start Date Expiration Date V isits Requested Visits Authorized [id number] Authorized 03/19/2024 03/19/2025 1 1 * Imaging (Routine) - Canceled Specialty Diagnoses / Procedures Referred By Maurice weaver Referred To Contact Radiology Diagnoses Abnormal LFTs Procedures US Abdomen Complete Handy Elias MD [address] [place] [address] Phone: tel: fax: [address] Phone: tel: fax: Referral ID Status Reason Start Date Expiration Date V isits Requested Visits Authorized [id number] Canceled 03/19/2024 03/19/2025 1 1 Reason for Visit * Reason Comments History of fall Encounter Details Date Type Department Care Team (Late st Contact Info) Description 03/19/2024 2:00 PM EST Office Visit [facility] MED & PEDS [address] [place] [address] Handy Elias MD [address] [place] [address] Abnormal LFTs (Primary Dx); Bruises easily; Fall, initial encounter; Other headache syndrome; SOB (shortness of breath) Social History Tobacco Use Types Packs/Day Years Used Date Smoking Tobacco: Every Day Cigarettes Passive Smoke Exposure: Past Smokeless Tobacco: Never Comments:Smokes 5 to 10 cig a week now x the last 6 months. Housing Stability Answer Date Recorded What is your housing situation today? I have nancy irina 08/07/[address] you li [...] AM EDT documented as of this encounter Last Filed Vital Signs Vital Sign Reading Time Taken Comments Blood Pressure 155/97 03/19/2024 2:08 PM EST Pulse 85 03/19/2024 2:08 PM EST Temperature 36.7 ??C (98 ??F) 03/19/2024 2:08 PM EST Respiratory Rate 20 03/19/2024 2:08 PM EST Oxygen Saturation 94% 03/19/2024 2:08 PM EST Inhaled Oxygen Concentration - - Weight 123 kg (271 lb) 03/19/2024 2:08 PM EST Height 180.3 cm (5' 11 ) 03/19/2024 2:08 PM EST Body Mass Index 37.8 03/19/2024 2:08 PM EST documented in this encounter Progress Notes * Handy Elias MD - 03/19/2024 2:00 PM EST Subjective Patient ID: Henri Espino is a 64 y.o. male who presents for History of fall. HPI Reports a history of fall at the gas station 4 days ago. Has bruises on the right side of the body Admits to new onset headache after the fall which is intermittent. Also not sure if she has lost consciousness.. Denies any palpitations prior to the fall or dizziness. He feels that the parking lot was not properly cleaned after snowstorm, which is the reason why he slipped and fell. Mr Henri Espino is complaining of headache without confusion or loss of consciousness since the fall. Also complaining of pain of the right wrist, right, knee right and right forearm pain and swelling. Patient Active Problem List Diagnosis Chronic pain syndrome CKD (chronic kidney disease), stage III (CMS/HCC) Erectile dysfunction Hypercholesterolemia Hypertension Low back pain Obstructive sleep apnea syndrome Osteoporosis Sciatica Senile hyperkeratosis Skin tag Tobacco dependence syndrome Sinusitis Essential hypertension Current Outpatient Medications on File Prior to Visit Medication Sig Dispense Refill acetaminophen (Tylenol 8 Hour) 650 MG ER tablet TAKE 1 TABLET BY MOUTH EVERY 8 HOURS NEEDED 90 tablet 5 amLODIPine (Norvasc) 5 MG tablet Take 1 tablet by mouth. daily BD Integra Syringe 25G X 1 3 ML misc USE 1 SYRINGE BY INTRAMUSCULAR ROUTE ONCE A MONTH FOR [id number] INJECTIONS 12 each 1 cholecalciferol (Vitamin D-3) 25 MCG (1000 UT) tablet Take 1 tablet by mouth. daily cyanocobalamin (Vitamin B-12) 1000 MCG/ML injection INJECT 1 ML ONCE A MONTH DIRECTED 12 mL 0 cyclobenzaprine (Flexeril) 10 MG tablet TAKE 1 TABLET BY MOUTH TWICE A DAY NEEDED FOR MUSCLE SPASMS 30 tablet 0 dicyclomine (Bentyl) 10 MG capsule Take 1 capsule (10 mg) by mouth 4 times daily. 120 capsule 11 Docusate Sodium (DSS) 100 MG capsule take 1 capsule by oral route twice daily as needed for constipation econazole nitrate 1 % cream Apply topically Once per day. 85 g 3 EPINEPHrine (EpiPen 2-Oc) 0.3 MG/0.3ML injection syringe inject (0.3MG) by intramuscular route once as needed for anaphylaxis exenatide ER (Bydureon BCi) 2 MG/0.85ML pen Inject 1 pen (2 mg) under the skin 1 (one) time per week. 4 mL 11 ezetimibe (Zetia) 10 MG tablet Take 1 tablet by mouth. daily fluvoxaMINE (Luvox) 100 MG tablet Take 1 tablet (100 mg) by mouth 2 times daily. 60 tablet 11 furosemide (Lasix) 20 MG tablet Take 1 tablet (20 mg) by mouth in the morning. 30 tablet 0 gabapentin (Neurontin) 300 MG capsule take 1 capsule by oral route every 12 hours hydrOXYzine pamoate (Vistaril) 50 MG capsule TAKE 1 CAPSULE BY MOUTH EVERY 6 HOURS IF NEEDED FOR ITCHING 90 capsule 3 lidocaine (Xylocaine) 2 % gel To apply 2 to 3 times a day as needed loratadine (Claritin) 10 MG tablet Take by mouth. montelukast (Singulair) 10 MG tablet Take 1 tablet by mouth. daily naloxone (Narcan) 4 mg/0.1 mL nasal spray Administer 1 spray (4 mg) into affected nostril(s) if needed for opioid reversal. 2 each 1 omeprazole (PriLOSEC) [address] capsule TAKE 1 CAPSULE BY MOUTH EVERY DAY BEFORE A MEAL 90 capsule 3 oxyCODONE (Roxicodone) 5 MG immediate release tablet Take 1 tablet (5 mg) by mouth every 4 (four) hours if needed for severe pain for up to 28 days. Do not start before March 12, 2024. 168 tablet 0 pseudoephedrine ER (Sudafed 12 Hour) 120 MG 12 hr tablet Take 1 tablet (120 mg) by mouth every 12 (twelve) hours. Do not crush, chew, or split. 20 tablet 0 rosuvastatin (Crestor) 20 MG tablet Take 1 tablet by mouth in the morning. sildenafil (Viagra) 100 MG tablet Take 1 tablet (100 mg) by mouth if needed for erectile dysfunction. Every day as needed approximately 1 hour before sexual activity 30 tablet 3 temazepam (Restoril) 7.5 MG capsule Take 1 capsule (7.5 mg) by mouth if needed at bedtime for sleep. 30 capsule 0 triamcinolone (Kenalog) 0.1 % cream to apply to the affected area 2 times a day Strength: 0.1 % 80 g 3 zolpidem (Ambien) 10 MG tablet TAKE 1 TABLET BY MOUTH AT BEDTIME NEEDED FOR SLEEP 30 tablet 0 zoster vaccine-recombinant adjuvanted (Shingrix) 50 MCG/0.5ML vaccine Inject 0.5 mL into the shoulder, thigh, or buttocks. [DISCONTINUED] zolpidem (Ambien) 10 MG tablet TAKE 1 TABLET BY MOUTH EVERY DAY AT BEDTIME NEEDEDFOR SLEEP 30 tablet 0 No current facility-administered medications on file prior to visit. Allergies Allergen Reactions Bee Venom Other Other reaction(s): Other (see comments) Dust Mite Extract Molds & Smuts Pineapple Other Other reaction(s): Other (see comments) Pollen Extract Review of Systems Constitutional: Negative for appetite change, chills and diaphoresis. Respiratory: Negative for cough, choking and chest tightness. Genitourinary: Negative for enuresis, flank pain and frequency. Musculoskeletal: Positive for arthralgias. Right anterior chest wall pain, right wrist pain, right knee pain Neurological: Positive for headaches. Hematological: Bruises/bleeds easily. Objective BP (!) 155/97 (BP Location: Left arm, Patient Position: Sitting, BP Cuff Size: Adult long) Pulse 85 Temp 98 ??F (36.7 ??C) (Oral) Resp 20 Ht 5' 11 (1.803 m) Wt 271 lb (123 kg) SpO2 94% BMI 37.80 kg/m?? Physical Exam Constitutional: General: He is not in acute distress. Appearance: Normal appearance. He is not ill-appearing, toxic-appearing or diaphoretic. Cardiovascular: Rate and Rhythm: Normal rate. Pulmonary: Effort: Pulmonary effort is normal. Breath sounds: Normal breath sounds. Skin: Comments: Multiple large bruises noted on the right forearm with a laceration Large bruise on the right wrist with swelling Very large bruise on the right leg Please see pictures Neurological: Mental Status: He is alert. Assessment/Plan Diagnoses and all orders for this visit: Abnormal LFTs Comments: Repeat LFTs and Orders: - US Abdomen Complete; Future - US Abdomen Complete; Future Bruises easily Comments: Labs ordered. Patient will be contacted with results. Fall precautions discussed. Orders: - CBC auto differential; Future - Basic Metabolic Panel; Future - Prothrombin Time-INR; Future - Partial Thromboplastin Time, Activated (APTT); Future Fall, initial encounter Comments: As above. Fall precautions discussed Other headache syndrome - CT Head w/o Contrast; Future SOB (shortness of breath) - XR Chest 2 Views; Future documented in this encounter Plan of Treatment Upcoming Encounters Date Type Department Care Team (Late st Contact Info) Description 05/08/2024 2:00 PM EDT Office Visit [facility] MED & PEDS [address] [place] [address] Handy Elias MD [address] [place] [address] 05/25/2024 3:00 PM EDT Telemedicine [facility] MED & PEDS [address] [place] [address] Tessa Cox, RN [address] [facility] [place] [address] Scheduled Orders Name Type Priority Associated Diagnoses Orde r Schedule US Abdomen Complete Imaging Routine Abnormal LFTs Expected: 03/19/2024, Expires: 03/19/2025 CT Head w/o Contrast Imaging Urgent Other headache syndrome Expected: 03/19/2024, Expires: 03/19/2025 US Abdomen Complete Imaging Routine Abnormal LFTs Expected: 03/19/2024, Expires: 03/19/2025 documented as of this encounter Procedures Procedure Name Priority Date/Time Associated Diagnosis Comments CBC WITH AUTO DIFFERENTIAL Routine 03/23/2024 4:24 PM EST Bruises easily APTT Routine 03/23/2024 4:24 PM EST Bruises easily PROTHROMBIN TIME-INR Routine 03/23/2024 4:24 PM EST Bruises easily BASIC METABOLIC PANEL Routine 03/23/2024 4:24 PM EST Bruises easily XR CHEST 2 VIEWS Routine 03/23/2024 3:44 PM EST SOB (shortness of breath) documented in this encounter Results * Partial Thromboplastin Time, Activated (APTT) (03/23/2024 4:24 PM EST) Partial Thromboplastin Time 32.8 26.0 - 36.8 SEC [facility] Comment:For information rega rding the monitoring of direct thrombininhibitors, please refer to Pharmacy. Blood Venous blood specimen / Unknown 03/23/2024 4:24 PM EST 03/23/2024 4:24 PM EST us Handy Elias MD LAB BLOOD ORDERABLES Final Result [facility] [address] [place] [address] [phone] * Prothrombin Time-INR (03/23/2024 4:24 PM EST) Prothrombin Time 11.0 10.9 - 12.4 SEC [facility] INTERNATIONAL NORM RATIO 0.9 0.9 - 1.1 [facility] Comment:INTERNATIONAL NORMAL IZED RATIO (INR) REFERENCE RANGES Reference RangeFor patients not on anticoagulant therapy: 0.9 - 1.1INR ranges for oral anticoagulanttherapy:For prevention and treatment of venous thrombosis and pulmonary embolism: 2.0 - 3.0For acute myocardial infarction with aspirin therapy: 2.0 - 3.0For acute myocardial infarction without aspirin therapy: 3.0 - 4.0For patients with mechanical prosthetic heart valves: 2.5 - 3.5 Blood Venous blood specimen / Unknown 03/23/2024 4:24 PM EST 03/23/2024 4:24 PM EST us Handy Elias MD LAB BLOOD ORDERABLES Final Result [facility] [address] [place] [address] [phone] * (ABNORMAL) Basic Metabolic Panel (03/23/2024 4:24 PM EST) [facility] Sodium 136 135 - 145 mmol/L [facility] Potassium 4.8 3.3 - 5.1 mmol/L [facility] Chloride 105 96 - 108 mmol/L [facility] Carbon Dioxide 23 22 - 29 mmol/L [facility] Anion Gap 13 12 - 20 [facility] Urea Nitrogen (BUN) 18(H) 9 - 16 mg/dL [facility] Creatinine, Serum 1.39 0.5 - 1.4 mg/dL [facility] Estimated Glomerular Filt Rate 51 [facility] Comment:Chronic Kidney Disea se: Estimated GFR < 60 mL/min/1.81b8Ghznub Kidney Disease: Estimated GFR < 15 mL/min/1.73m2 Glucose 92 60 - 115 mg/dL [facility] Calcium 9.4 8.4 - 10.2 mg/dL [facility] Blood Venous blood specimen / Unknown 03/23/2024 4:24 PM EST 03/23/2024 4:24 PM EST us Handy Elias MD LAB BLOOD ORDERABLES Final Result [facility] [address] [place] [phone] * (ABNORMAL) CBC auto differential (03/23/2024 4:24 PM EST) White Blood Count 9.8 4.8 - 10.8 X10*3/uL [facility] Red Blood Count 5.06 4.60 - 5.80 X10*6/uL [facility] Hemoglobin 15.9 14.0 - 18.0 g/dl [facility] Hematocrit 47.7 42.0 - 52.0 % [facility] Mean Corpuscular Volume 94.3 80.0 - 98.0 fL [facility] Mean Corpuscular Hemoglobin 31.4 27.0 - 33.0 pg [facility] Mean Corpuscular HGB Conc 33.3 31.0 - 36.0 g/dl [facility] Red Cell Distribution Width 14.0 11.0 - 16.0 % [facility] Platelet Count 293 160 - 400 X10*3/uL [facility] Mean Platelet Volume 9.9 9.4 - 12.4 fL [facility] Neutrophils Percent Auto 65.0 45 - 73 % [facility] Imm Gran Pct Auto 2.4(H) 0.0 - 0.4 % [facility] Lymphocytes Percent Auto 19.0(L) 20 - 40 % [facility] Monocytes Percent Auto 10.3 2 - 11 % [facility] Eosinophils Percent Auto 2.6 0 - 4 % [facility] Basophils Percent Auto 0.7 0 - 2 % [facility] NRBC Pct Auto 0.0 0.0 - 0.2 /100WBC [facility] Neutrophils Absolute Auto 6.4 2.0 - 8.3 x10*3/uL [facility] Imm Gran Abs Auto 0.23(H) 0.00 - 0.03 X10*3/uL [facility] Lymphocytes Absolute Auto 1.9 1.2 - 4.9 X10*3/uL [facility] Monocytes Absolute Auto 1.0 0.1 - 1.2 X10*3/uL [facility] Eosinophils Absolute Auto 0.3 0.0 - 0.4 X10*3/uL [facility] Basophils Absolute Auto 0.1 0.0 - 0.2 X10*3/uL [facility] NRBC Abs Auto 0.000 0.0 - 0.012 X10*3/uL [facility] Blood Venous blood specimen / Unknown 03/23/2024 4:24 PM EST 03/23/2024 4:24 PM EST us Handy Elias MD LAB BLOOD ORDERABLES Final Result [facility] [address] [place] [address] [phone] * XR Chest 2 Views (03/23/2024 3:44 PM EST) Anatomical Region Laterality Modality Chest Radiographic Ame ging 03/23/2024 3:44 PM EST Narrative 03/23/2024 5:03 PM EST ? [facility] ?[address] ?[place] [address] ?XRay Report ? Signed ? Patient: Srinivas,Henri F ?MR#: [id number] ?? 79 ? : 1960 ?Acct:[id number] ? Age/Sex: 64 / M ?ADM Date: 01/27/25 ? Loc: HO.CT ? Attending Dr: Handy Elias MD ? Ordering Physician: Handy Elias MD ?? Date of Service: 03/23/24 ?? Procedure(s): XR chest 2V ?? Accession Number(s): [id number] ? cc: Handy Elias MD ? EXAMINATION: ?? XR CHEST ? CLINICAL INFORMATION: ?? SOB after a fall. ? COMPARISON: ?? Chest 12/20/2023 ? TECHNIQUE: ?? 2 views of the chest were obtained. ? FINDINGS: ?? The lungs are hyperinflated with platelike atelectasis in the lingula. ?? Rest of lungs are clear. The heart size and pulmonary vascularity is ?? normal. There is mild spondylosis dorsal spine. ? XR/XR chest 2V ?? IMPRESSION: ?? Hyperinflated lungs with mild atelectatic changes in the lingula. ? Electronically signed by: ??Rasheed Jefferson MD ??03/23/2024 05:00 PM EST RP ? Dictated By: ?Rasheed Jefferson MD ? Signed By: ?<Electronically signed by Rasheed Jefferson MD in OV> ?03/23/24 1700 ? DD/ 1544 ? TD/TT: 03/23/24 1605 ? Rep[employer]: MSM ? Procedure Note Donanneliese, Image - 03/23/2024 [place] [address] XRay Report Signed Patient: Henri Espino FMR#: [id number] [birth year] : 8Acct:[id number] Age/Sex: 64 / MADM Date: 03/23/24 Loc: HO.CT Attending Dr: Handy Elias MD Ordering Physician: Handy Elias MD Date of Service: 03/23/24 Procedure(s): XR chest 2V Accession Number(s): [id number] cc: Handy Elias MD EXAMINATION: XR CHEST CLINICAL INFORMATION: SOB after a fall. COMPARISON: Chest 12/20/2023 TECHNIQUE: 2 views of the chest were obtained. FINDINGS: The lungs are hyperinflated with platelike atelectasis in the lingula. Rest of lungs are clear. The heart size and pulmonary vascularity is normal. There is mild spondylosis dorsal spine. XR/XR chest 2V IMPRESSION: Hyperinflated lungs with mild atelectatic changes in the lingula. Electronically signed by: Rasheed Jefferson MD 03/23/2024 05:00 PM EST Dictated By: Rasheed Jefferson MD Signed By: <Electronically signed by Rasheed Jefferson MD in OV> 03/23/24 1700 DD/ 1544 TD/TT: 03/23/24 1605 Rep[employer]: ANTHONY us Handy Elias MD IMG XR PROCEDURES Final Res ult documented in this encounter Visit Diagnoses Diagnosis Abnormal LFTs- Primary Bruises easily Other symptoms involving skin and integumentary tissues Fall, initial encounter Other headache syndrome SOB (shortness of breath) Shortness of breath documented in this encounter Care Teams Jockey Valet Relationship Specialty Start Date End Date Handy Elias MD [address] [place] [id number] PCP - General Internal Medicine 11/17/12 documented as of this encounter
--- OUTSIDE RECORDS SUMMARY | 2024-03-23 19:34 | XMS_ITS | Encounter Summary ---
Author Organization [employer] Address [address] [facility] 7 [place] [address] Care Team Providers Care Repairer Typewriter Name Role Phone Handy Elias MD Primary Care Provider [phone] Reason for Visit * Reason Comments Pre-visit Planning SDOH unable to reach LVM Encounter Details Date Type Department Care Team ([facility] st Contact Info) Description 03/10/2024 Patient Outreach [facility] MED & PEDS [address] [place], [place] [phone] Handy Elias MD [address] [place], [place] [phone] Pre-visit Planning (SDOH unable to reach LVM ) Social History Tobacco Use Types Packs/Day Years [...] as of this encounter Progress Notes * Karma Jones - 03/10/2024 3:55 PM EST CC Karma Guy placed outbound call to patient to complete pre-visit planning. No answer at this time. Patient name and were not confirmed. CC left voicemail requesting return call. Direct contactinformation provided. documented in this encounter Plan of Treatment Upcoming Encounters Date Type Department Care Team ([facility] st Contact Info) Description 05/08/2024 2:00 PM EDT Office Visit [facility]ED[facility] [address] [place] [address] Handy Elias MD [address] [place] [address] 05/25/2024 3:00 PM EDT Telemedicine [facility] MED [facility] PEDS [address] [place] [address] Tessa Cox RN [address] [place] [address] documented as of this encounter Visit Diagnoses Not on filedocumented in this encounter Care Teams Repairer Typewriter Relationship Specialty Start Date End Date Handy Elias MD [address] [place] [address] PCP - General Internal Medicine 11/17/12 documented as of this encounter
--- OUTSIDE RECORDS SUMMARY | 2024-03-23 19:35 | XMS_ITS | Encounter Summary ---
Author Organization [employer] Address [address] [place] [address] Care Team Providers Care Front End Specialist Name Role Phone Handy Elias MD Primary Care Provider [phone] Reason for Visit * Reason Onset Date Comments Reschedule 04/01/2023 Encounter Details Date Type Department Care Team (Late st Contact Info) Description 04/01/2023 Telephone [facility] MEDICINE [address] [place] [address] Handy Elias MD [address] [place] [address] Reschedule Social History Tobacco Use Types Packs/Day Years [...] encounter Miscellaneous Notes * Telephone Encounter - Emilee Mauricio - 04/01/2023 11:04 AM EST Phillip from [facility] requesting r/s 04/04/2023 appt, information writer attempted to schedule no availability. documented in this encounter Plan of Treatment Upcoming Encounters Date Type Department Care Team (Late st Contact Info) Description 05/08/2024 2:00 PM EDT Office Visit [facility] MED & PEDS [address] [place] [address] Handy Elias MD [address] [place] [address] 05/25/2024 3:00 PM EDT Telemedicine [facility] MED & PEDS [address] [place] [address] Tessa Cox RN [address] [place] [address] documented as of this encounter Visit Diagnoses Not on filedocumented in this encounter Care Teams Front End Specialist Relationship Specialty Start Date End Date Handy Elias MD [address] [place] [address] PCP - General Internal Medicine 11/17/12 documented as of this encounter
--- OUTSIDE RECORDS SUMMARY | 2024-03-23 19:35 | XMS_ITS | Encounter Summary ---
Author Organization [email or web address] Address [address] [facility] [address] [place] [address] Care Team Providers Care Motion Picture Film Examiner Name Role Phone Handy Elias MD Primary Care Provider [phone] Reason for Visit * Reason Onset Date Comments Med Refill 12/16/2023 Encounter Details Date Type Department Care Team (Late st Contact Info) Description 12/16/2023 Telephone [facility] MEDICINE [address] [place] [address] Handy Elias MD [address] [place], [place] [phone] Med Refill Social History Tobacco Use Types Packs/Day Years [...] Miscellaneous Notes * Telephone Encounter - Nia Monroe - 12/16/2023 12:50 PM EDT Tc from pt requesting a refill for oxyCODONE (Roxicodone) 5 MG immediate release tablet documented in this encounter Plan of Treatment Upcoming Encounters Date Type Department Care Team (Late st Contact Info) Description 05/08/2024 2:00 PM EDT Office Visit [facility] MED & PEDS [address] [place] [address] Handy Elias MD [address] [place] [address] 05/25/2024 3:00 PM EDT Telemedicine [facility] MED & PEDS [address] [place] [address] Tessa Cox, MARITA [address] [place] [address] documented as of this encounter Visit Diagnoses Not on filedocumented in this encounter Care Teams Motion Picture Film Examiner Relationship Specialty Start Date End Date Handy Elias MD [address] [place] [address] PCP - General Internal Medicine 11/17/12 documented as of this encounter
--- OUTSIDE RECORDS SUMMARY | 2024-03-23 19:35 | XMS_ITS | Encounter Summary ---
Author Organization [employer] Address 75 [facility] 7 [place] [address] Care Team Providers Care Print Shop Manager Name Role Phone Handy Elias MD Primary Care Provider [phone] Reason for Visit * Reason Onset Date Comments Med Refill 11/15/2023 Encounter Details Date Type Department Care Team (Late st Contact Info) Description 11/15/2023 Telephone [facility] MEDICINE 230 [place] [address] Handy Elias MD [address] [place], [place] [phone] Med Refill Social History Tobacco Use Types [...] encounter Miscellaneous Notes * Telephone Encounter - Lukas Maldonado - 11/15/2023 10:52 AM EDT TC from pt requesting medication refill. Medications needing refill : zolpidem (Ambien) 10 MG tablet To be sent to: [facility]/pharmacy #[id number] - [place], [place] - [address] [address], [place] [address] documented in this encounter Plan of Treatment Upcoming Encounters Date Type Department Care Team (Late st Contact Info) Description 05/08/2024 2:00 PM EDT Office Visit [facility] 505 [place] [address] Handy Elias MD 505 [place] [address] 05/25/2024 3:00 PM EDT Telemedicine [facility] 505 [place] [address] Tessa Cox RN 505 [place] [address] documented as of this encounter Visit Diagnoses Not on filedocumented in this encounter Care Teams Print Shop Manager Relationship Specialty Start Date End Date Handy Elias MD 505 [place] [address] PCP - General Internal Medicine 11/17/12 documented as of this encounter
--- OUTSIDE RECORDS SUMMARY | 2024-03-23 19:35 | XMS_ITS | Encounter Summary ---
Author Organization [employer] Address [address] [place] [address] 7 [place] [address] Care Team Providers Care Manager Food Beverage Name Role Phone Handy Elias MD Primary Care Provider [phone] Encounter Details Date Type Department Care Team (Late st Contact Info) Description 2022 Abstract [facility] MEDICINE 230 [place], [place] [phone] ProviderMelanie MD Social History Tobacco Use Types Packs/Day Years Used Date Smoking Tobacco: Never Assessed Sex and Gender Information Value Date Recorded Sex Assigned at Male 12/25/2021 10:18 AM EDT Legal Sex Male 10:18 AM EDT Gender Identity Male 12/25/2021 10:18 AM EDT Sexual Orientation Straight 12/25/2021 10 :18 AM EDT documented as of this encounter Last Filed Vital Signs Vital Sign Reading Time Taken Comments Blood Pressure 120/74 2022 1:44 PM EST Pulse 70 2022 1:44 PM EST Temperature - - Respiratory Rate - - Oxygen Saturation - - Inhaled Oxygen Concentration - - Weight - - Height - - Body Mass Index - - documented in this encounter Plan of Treatment Upcoming Encounters Date Type Department Care Team (Late st Contact Info) Description 05/08/2024 2:00 PM EDT Office Visit [facility] 505 [place], [place] [phone] Handy Elias MD 505 [place], [place] [phone] 05/25/2024 3:00 PM EDT Telemedicine [facility] MED [facility] 505 [place] [address] Tessa Cox RN 505 [place] [address] documented as of this encounter Visit Diagnoses Not on filedocumented in this encounter Care Teams Manager Food Beverage Relationship Specialty Start Date End Date Handy Elias MD 505 [place] [address] PCP - General Internal Medicine 11/17/12 documented as of this encounter
--- OUTSIDE RECORDS SUMMARY | 2024-03-23 19:35 | XMS_ITS | Encounter Summary ---
Author Organization [employer] Address 75 [facility] 7 [place] [address] Care Team Providers Care Cinder Crane Operator Name Role Phone Handy Elias MD Primary Care Provider [phone] Reason for Visit * Reason Onset Date Comments Med Refill 06/12/2022 Encounter Details Date Type Department Care Team (Late st Contact Info) Description 06/12/2022 Telephone [facility] MEDICINE 230 [place] [address] Handy Elias MD 505 [place], [place] [phone] Med Refill Social History Tobacco Use Types Packs/Day Years Used Date Smoking Tobacco: Former Cigarettes Smokeless Tobacco: Never Sex and Gender Information Value Date Recorded Sex Assigned at Male 12/25/2021 10:18 AM EDT Legal Sex Male 10:18 AM EDT Gender Identity Male 12/25/2021 10:18 AM EDT Sexual Orientation Straight 12/25/2021 10 :18 AM EDT COVID-19 Exposure Response Date Recorded In the last 10 days, have yo u been in contact with someone who was confirmed or suspected to have Coronavirus/COVID-19? No / Unsure 05/28/2022 10:04 AM EDT documented as of this encounter Miscellaneous Notes * Telephone Encounter - Johnie Jones - 06/12/2022 4:01 PM EDT Tc from pt requesting med refill Ambien 10 mg Pt stated if they can put refills for medication at the pharmacy documented in this encounter Plan of Treatment Upcoming Encounters Date Type Department Care Team (Late st Contact Info) Description 05/08/2024 2:00 PM EDT Office Visit [facility] [address] [place] [address] Handy Elias MD 505 [place] [address] 05/25/2024 3:00 PM EDT Telemedicine [facility] 505 [place] [address] Tessa Cox RN 505 [place] [address] documented as of this encounter Visit Diagnoses Not on filedocumented in this encounter Care Teams Cinder Crane Operator Relationship Specialty Start Date End Date Handy Elias MD 505 [place] [address] PCP - General Internal Medicine 11/17/12 documented as of this encounter
--- OUTSIDE RECORDS SUMMARY | 2024-03-23 19:35 | XMS_ITS | Encounter Summary ---
Author Organization [email or web address] Address [address] [place] [address] 7 [place] [address] Care Team Providers Care Tongue Carrier Name Role Phone Handy Elias MD Primary Care Provider [phone]- [phone] Encounter Details Date Type Department Care Team (Late st Contact Info) Description 05/14/2023 Orders Only [facility] 505 [place] [address] Handy Elias MD 505 [place] [address] Mood disorder (CMS/HCC) (Primary Dx) Social History Tobacco Use Types Packs/Day Years [...] 2:00 PM EDT Office Visit [facility] 505 [place] [address] Handy Elias MD 505 [place] [address] 05/25/2024 3:00 PM EDT Telemedicine [facility] 505 [place] [address] Tessa Cox RN 505 [place] [address] documented as of this encounter Visit Diagnoses Diagnosis Mood disorder (CMS/HCC)- Primary Unspecified episodic mood disorder documented in this encounter Care Teams Tongue Carrier Relationship Specialty Start Date End Date Handy Elias MD 505 [place] [address] PCP - General Internal Medicine 11/17/12 documented as of this encounter
--- OUTSIDE RECORDS SUMMARY | 2024-03-23 19:35 | XMS_ITS | Encounter Summary ---
Author Organization [employer] Address [address] [place] [address] 7 [place] [address] Care Team Providers Care Bottom Turning Lathe Tender Name Role Phone Handy Elias MD Primary Care Provider [phone] Reason for Visit * Reason Onset Date Comments Med Refill 07/30/2023 Encounter Details Date Type Department Care Team (Late st Contact Info) Description 07/30/2023 Telephone [facility] MEDICINE 230 [place] [address] Handy Elias MD 505 [place], [place] [phone] Med Refill Social History Tobacco Use Types [...] * Telephone Encounter - Emilee Mauricio - 07/30/2023 8:11 AM EDT TC from pt requesting medication refill. Medications needing refill : oxyCODONE (Roxicodone) 5 MG immediate release tablet To be sent to: [facility]/pharmacy #[id number] - [place] - [address] [place] [address] AT [address], [place] [address] documented in this encounter Plan of Treatment Upcoming Encounters Date Type Department Care Team (Late st Contact Info) Description 05/08/2024 2:00 PM EDT Office Visit [facility] 505 [place] [address] Handy Elias MD 505 [place] [address] 05/25/2024 3:00 PM EDT Telemedicine [facility] 505 [place] [address] Tessa Cox RN 505 [place] [address] documented as of this encounter Visit Diagnoses Not on filedocumented in this encounter Care Teams Bottom Turning Lathe Tender Relationship Specialty Start Date End Date Handy Elias MD 505 [place] [address] PCP - General Internal Medicine 11/17/12 documented as of this encounter
--- OUTSIDE RECORDS SUMMARY | 2024-03-23 19:35 | XMS_ITS | Encounter Summary ---
Author Organization [employer] Address [address] [facility] 7 [place] [address] Care Team Providers Care Studio Engineer Name Role Phone Handy Elias MD Primary Care Provider [phone] Reason for Visit * Reason Onset Date Comments Med Refill 01/14/2024 Encounter Details Date Type Department Care Team (Late st Contact Info) Description 01/14/2024 Telephone [facility] MEDICINE 230 [place] [address] Handy Elias MD 505 [place], [place] [phone] Med Refill Social History Tobacco Use Types [...] encounter Miscellaneous Notes * Telephone Encounter - Veronique Saucedo - 01/14/2024 8:33 AM EST TC from pt requesting medication refill. Medications needing refill : oxyCODONE (Roxicodone) 5 MG immediate release tablet To be sent to: [facility]/pharmacy #[id number] - [place] - [address] [place] [address] documented in this encounter Plan of Treatment Upcoming Encounters Date Type Department Care Team (Late st Contact Info) Description 05/08/2024 2:00 PM EDT Office Visit [facility] PEDS 505 [place] [address] Handy Elias MD 505 [place] [address] 05/25/2024 3:00 PM EDT Telemedicine [facility] PEDS 505 [place] [address] Tessa Cox RN 505 [place] [address] documented as of this encounter Visit Diagnoses Not on filedocumented in this encounter Care Teams Studio Engineer Relationship Specialty Start Date End Date Handy Elias MD 505 [place] [address] PCP - General Internal Medicine 11/17/12 documented as of this encounter
--- OUTSIDE RECORDS SUMMARY | 2024-03-23 19:35 | XMS_ITS | Encounter Summary ---
Author Organization [employer] Address [address] [facility] 7 [place] [address] Care Team Providers Care Head Of Training And Development Name Role Phone Handy Elias MD Primary Care Provider [phone] Reason for Visit * Reason Onset Date Comments Med Refill 09/18/2023 Encounter Details Date Type Department Care Team (Late st Contact Info) Description 09/18/2023 Telephone [facility] MEDICINE 230 [place] [address] Handy Elias MD 505 [place], [place] [phone] Med Refill Social History Tobacco Use Types [...] encounter Miscellaneous Notes * Telephone Encounter - Rachel Epperson - 09/18/2023 8:13 AM EDT TC from pt requesting medication refill. Medications needing refill : Zolpidem To be sent to: [facility]/pharmacy #[id number] - [place] - [address] [place] [address] AT [address], [place] [address] documented in this encounter Plan of Treatment Upcoming Encounters Date Type Department Care Team (Late st Contact Info) Description 05/08/2024 2:00 PM EDT Office Visit [facility] MED & PEDS 505 [place] [address] Handy Elias MD 505 [place] [address] 05/25/2024 3:00 PM EDT Telemedicine [facility] 505 [place] [address] Tessa Cox RN 505 [place] [address] documented as of this encounter Visit Diagnoses Not on filedocumented in this encounter Care Teams Head Of Training And Development Relationship Specialty Start Date End Date Handy Elias MD 505 [place] [address] PCP - General Internal Medicine 11/17/12 documented as of this encounter
--- OUTSIDE RECORDS SUMMARY | 2024-03-23 19:35 | XMS_ITS | Continuity of Care Document ---
Author Organization [facility] Address [address] [place] [address] Phone Care Team Providers Care Sand Cutting Machine Operator Name Role Phone Adria LACKEY, RVT, LEÓN, [...] (unknown strength) Not Available - Active VITAMIN N22-ERCOK ACID (unknown strength) Not Available - Active [...] E&M Established 15 Mins [facility], [address] [place] [address] Dr Arshad [address] [address], [id number], [place] tel:[phone] [facility] Cramp and spasmRestless legs syndromeEssent ial (primary) hypertensionPa in in left lower legPain in left legLocalized edema 4 Adria LACKEY, RVT, LEÓN Torres. [address] [place] [address], [place], [place], [id number] , [place]. tel:[phone] Referring Provider: Handy Mckeon, [address] [place] [address], [address]. tel:[phone] [facility], [address] [place] [address] Dr Arshad [address] [address], [place], [id number], [place] tel:[phone] [facility] Encounter for follow-up examination after completed treatment for conditions other than malignant neVaricose veins of right lower extremity with pain 3 Asim LACKEY FACS RVT LEÓN [place]. [address] [place] [address], [place], [address], [place]. tel:[phone] Referring Provider: Handy Mckeon, [address], [address]. tel:[phone] [place] [facility], [address] [place] [address] Dr Arshad [address], [place], [id number], [place] tel:[phone] CVR - [place] [facility] Varicose veins of right lower extremity with other complications Jan-0 3 Doreen De Paz . [address] [facility], [place] [address], [place], [place], [id number] , [place]. tel:[phone] Referring Provider: Handy Mckeon, [address], [address]. tel:[phone] [place] [facility], [address] [place] [address] Dr Arshad [address] [address], [id number], [place] tel:[phone] CVR - [place] Varicose veins of right lower extremity with other complications 3 Asim LACKEY FACS Ralf [place]. [address] [place] [address], [place], [address], [place]. [phone] Referring Provider: Handy Mckeon, [address] [place] [address], [address]. tel:[phone] Office/Outpt E&M Established 25 Mins [facility], [address] [place] [address] Dr Arshad [address] [address], [id number], [place] tel:[phone] CVR - [place] [facility] [place] Chronic venous hypertension (idiopathic) with other complications of bilateral lower extremity Nov- 3 Asim LACKEY FACS Ralf [facility]. [address] [place] [address], [place], [address], [place]. tel:[phone] Referring Provider: Handy Mckeon, [address], [address]. tel:[phone] Office/Outpt E&M Established 10 Mins - [facility], [address] [place] [address] Dr Arshad [address] [address], [id number], [place] tel:[phone] CVR - [place] [facility] [place] Venous insufficiency (chronic) (peripheral) Apr-2 6-202 3 Asim LACKEY FACS T [facility]. [facility], [place] [address], [place], [address], [place]. tel:[phone] Referring Provider: Handy Mckeon, [address] [place] [address], [address]. tel:[phone] Office/Outpt E&M Established 15 Mins [facility], [address] [place] [address] [address], [place], [id number], [place] [phone] CVR - [place] Venous insufficiency (chronic) (peripheral) 3 Asim LACKEY FACS [facility]. [address] [place] [address], [place], [address], [place]. [phone] Referring Provider: Handy Mckeon, [address] [place] [address], [address]. tel:[phone] [place] [facility], [address] [place] [address] Dr Arshad [address], [place], [id number], [place] tel:[phone] CVR - [place] Venous insufficiency (chronic) (peripheral) 3 Asim LACKEY [facility]. [address] [place] [address], [place] [address], [place], [address], [place]. [phone] Referring Provider: Blanka Dailey MD FACS [facility], [address] [place] [address], [place], [address]. tel:[phone] Office/Oupt E&M New Pt 30 Mins [facility], [address] [place] [address] Dr Arshad 1000[address] [address], [id number], [place] tel:[phone] CVR - [place] Venous insufficiency (chronic) (peripheral)Lo calized edemaRestless legs syndromeEssent ial (primary) hypertensionPr uritus, unspecifiedFla il joint, unspecified jointPain in right legPain in left legPain in right lower legPain in left lower legCramp and spasm 3 Asim LACKEY FACS RVT RPTEREZA [place]. [address] [facility], [address], [place], [address], [place]. tel:[phone] Referring Provider: Blanka Dailey MD FACS RVT [facility], [address] [facility] [address], [place], [address]. tel:[phone] Family History Family Member Type Diagnosis Age At Onset No Information Payers Payer name Insurance type Covered republican ID Authoriza tion(s) Medicare [place] MB [id number] BCBS [place] [id number] Social History Type Description Quantity Date Captured [...] 40.0-44.9, adult Lifestyle education Related to B asra mass index (BMI) 40.0-44.9, adult Diet education [...]
--- OUTSIDE RECORDS SUMMARY | 2024-03-23 19:35 | XMS_ITS | Encounter Summary ---
Author Organization [employer] Address [address] [place] [address] 7 [place] [address] Care Team Providers Care Salesperson Neckties Name Role Phone Handy Elias MD Primary Care Provider [phone]- [phone] Encounter Details Date Type Department Care Team (Late Contact Info) Description 03/14/2023 Orders Only [facility] MED & PEDS 505 [place] [address] Handy Elias MD 505 [place] [address] Chronic pain syndrome; Primary insomnia Social History Tobacco Use Types [...] Description 05/08/2024 2:00 PM EDT Office Visit [facility] MED & PEDS 505 [place] [address] Handy Elias MD 505 [place] [address] 05/25/2024 3:00 PM EDT Telemedicine [facility] MED & PEDS 505 [place] [address] Tessa Cox RN [address] [place] [address] documented as of this encounter Visit Diagnoses Diagnosis Chronic pain syndrome Primary insomnia Persistent disorder of initiating or maintaining sleep documented in this encounter Care Teams Salesperson Neckties Relationship Specialty Start Date End Date Handy Elias MD 505 [place] [address] PCP - General Internal Medicine 11/17/12 documented as of this encounter
--- OUTSIDE RECORDS SUMMARY | 2024-03-23 19:35 | XMS_ITS | Encounter Summary ---
Author Organization [employer] Address [address] [place] [address] Care Team Providers Care Pin Drafter Operator Name Role Phone Handy Elias MD Primary Care Provider [phone]- [phone] Reason for Visit * Reason Onset Date Comments Call Back Request 05/14/2023 Encounter Details Date Type Department Care Team (Late st Contact Info) Description 05/14/2023 Telephone [facility] MEDICINE 230 [place] [address] Handy Elias MD 505 [place], [place] [phone] Call Back Request Social History Tobacco Use Types Packs/Day Years [...] encounter Miscellaneous Notes * Telephone Encounter - Nick Dickson - 05/14/2023 9:02 AM EDT Tc from the patients spouse requesting a call back in regards to a medication there was no other information provided at this time documented in this encounter Plan of Treatment Upcoming Encounters Date Type Department Care Team (Late st Contact Info) Description 05/08/2024 2:00 PM EDT Office Visit [facility] MED & PEDS 505 [place] [address] Handy Elias MD 505 [place] [address] 05/25/2024 3:00 PM EDT Telemedicine [facility] MED & PEDS 505 [place] [address] Tessa Cox RN 505 [place] [address] documented as of this encounter Visit Diagnoses Not on filedocumented in this encounter Care Teams Pin Drafter Operator Relationship Specialty Start Date End Date Handy Elias MD 505 [place] [address] PCP - General Internal Medicine 11/17/12 documented as of this encounter
--- OUTSIDE RECORDS SUMMARY | 2024-03-23 19:35 | XMS_ITS | Encounter Summary ---
Author Organization [employer] Address 75 [facility] 7 [place] [address] Care Team Providers Care Health And Safety Representative Name Role Phone Handy Elias MD Primary Care Provider [phone] Reason for Visit * Reason Onset Date Comments call back requested 10/18/2023 Encounter Details Date Type Department Care Team ([facility] st Contact Info) Description 10/18/2023 Telephone [facility] MEDICINE 230 [place] [address] Handy Elias MD [address] [place], [place] [phone] call back requested Social History Tobacco Use Types Packs/Day Years [...] * Telephone Encounter - Lukas Maldonado - 10/18/2023 3:20 PM EDT TC from spouse states just missed a call from [employer]IGATION OFFICER nurse Tessa . documented in this encounter Plan of Treatment Upcoming Encounters Date Type Department Care Team (Late st Contact Info) Description 05/08/2024 2:00 PM EDT Office Visit [facility] MED & PEDS 505 [place] [address] Handy Elias MD [address] [place] [address] 05/25/2024 3:00 PM EDT Telemedicine [facility] MED & PEDS 505 [place] [address] Tessa Cox RN 505 [place] [address] documented as of this encounter Visit Diagnoses Not on filedocumented in this encounter Care Teams Health And Safety Representative Relationship Specialty Start Date End Date Handy Elias MD 505 [place] [address] PCP - General Internal Medicine 11/17/12 documented as of this encounter
--- OUTSIDE RECORDS SUMMARY | 2024-03-23 19:35 | XMS_ITS | Encounter Summary ---
Author Organization [employer] Address [address] [place] [address] 7 [place] [address] Care Team Providers Care Human Resources Trainer Name Role Phone Handy Elias MD Primary Care Provider [phone] Encounter Details Date Type Department Care Team (Late st Contact Info) Description 12/26/2022 Abstract [facility] MEDICINE 230 [place], [place] [phone] Handy Elias MD 505 [place], [place] [phone] Social History Tobacco Use Types Packs/Day Years [...] Description 05/08/2024 2:00 PM EDT Office Visit [facility] MED & PEDS 505 [place], [place] [phone] Handy Elias MD 505 [place], [place] [phone] 05/25/2024 3:00 PM EDT Telemedicine [facility] MED & PEDS 505 [place], [place] [phone] Tessa Cox, MARITA 505 [place] [address] documented as of this encounter Visit Diagnoses Not on filedocumented in this encounter Care Teams Human Resources Trainer Relationship Specialty Start Date End Date Handy Elias MD 505 [place] [address] PCP - General Internal Medicine 11/17/12 documented as of this encounter
--- OUTSIDE RECORDS SUMMARY | 2024-03-23 19:35 | XMS_ITS | Encounter Summary ---
Author Organization [employer] Address [address] [facility] 7 [place] [address] Care Team Providers Care Testing Manager Name Role Phone Handy Elias MD Primary Care Provider [phone] Encounter Details Date Type Department Care Team (Late st Contact Info) Description 11/15/2023 Orders Only [facility] [address] [place], [place] [phone] Handy Elias MD [address] [place], [place] [phone] Social History Tobacco Use Types Packs/Day Years [...] Description 05/08/2024 2:00 PM EDT Office Visit [facility] [address] [place] [address] Handy Elias MD [address] [place] [address] 05/25/2024 3:00 PM EDT Telemedicine [facility] [address] [place] [address] Tessa Cox, MARITA [address] [place] [address] documented as of this encounter Visit Diagnoses Not on filedocumented in this encounter Care Teams Testing Manager Relationship Specialty Start Date End Date Handy Elias MD [address] [place] [address] PCP - General Internal Medicine 11/17/12 documented as of this encounter
--- OUTSIDE RECORDS SUMMARY | 2024-03-23 19:35 | XMS_ITS | Encounter Summary ---
Author Organization [employer] Address [address] [place] [address] 7 [place] [address] Care Team Providers Care Systems Tester Name Role Phone Handy Elias MD Primary Care Provider [phone] Encounter Details Date Type Department Care Team (Late Contact Info) Description 02/02/2022 Orders Only [facility] [address] [place], [place] [phone] Handy Elias MD [address] [place], [place] [phone] Cold intolerance of hand (Primary Dx); Primary insomnia Social History Tobacco Use Types [...] suspected to have Coronavirus/COVID-19? No / Unsure 01/29/2022 3:30 PM EST documented as of this encounter Plan of Treatment Upcoming Encounters Date Type Department Care Team (Late st Contact Info) Description 05/08/2024 2:00 PM EDT Office Visit [facility] [address] [place], [place] [phone] Handy Elias MD [address] [place], [place] [phone] 05/25/2024 3:00 PM EDT Telemedicine [facility] [address] [place] [address] Tessa Cox, MARITA [address] [place] [address] documented as of this encounter Procedures Procedure Name Priority Date/Time Associated Diagnosis Comments TSH W/REFLEX TO FT4 Routine 03/01/2022 1 1:16 AM EST Cold intolerance of hand documented in this encounter Results * TSH W/Reflex to FT4 (03/01/2022 11:16 AM EST) TSH w/Reflex to FT4 2.35 0.40 - 4.50 mIU/L [facility] [employer] [place] [employer] 03/01/2022 11:1 6 AM EST 03/01/2022 11:16 AM EST Handy Elias MD LAB BLOOD ORDERABLES Final Result [facility] [address] [facility], [facility], [place] [address] [employer] [place] [employer] [address] [facility], ([address]) [place] [address] documented in this encounter Visit Diagnoses Diagnosis Cold intolerance of hand- Primary Primary insomnia Persistent disorder of initiating or maintaining sleep documented in this encounter Care Teams Systems Tester Relationship Specialty Start Date End Date Handy Elias MD [address] [place] [address] PCP - General Internal Medicine 11/17/12 documented as of this encounter
--- OUTSIDE RECORDS SUMMARY | 2024-03-23 19:35 | XMS_ITS | Encounter Summary ---
Author Organization [employer] Address [address] [facility] 7 [place] [address] Care Team Providers Care Glass Beveller Name Role Phone Handy Elias MD Primary Care Provider [phone] Reason for Visit * Reason Onset Date Comments Med Refill 09/23/2023 Encounter Details Date Type Department Care Team (Late st Contact Info) Description 09/23/2023 Telephone [facility] [address] [place] [address] Handy Elias MD [address] [place], [place] [phone] Med Refill Social History Tobacco Use Types [...] * Telephone Encounter - Emilee Mauricio - 09/23/2023 11:56 AM EDT TC from pt requesting medication refill. Medications needing refill : oxyCODONE (Roxicodone) 5 MG immediate release tablet To be sent to: [facility]/pharmacy #[id number] - [place] - [address] [facility] [address], [place] [address] documented in this encounter Plan of Treatment Upcoming Encounters Date Type Department Care Team (Late st Contact Info) Description 05/08/2024 2:00 PM EDT Office Visit [facility] [address] [place] [address] Handy Elias MD [address] [place] [address] 05/25/2024 3:00 PM EDT Telemedicine [facility] [address] [place] [address] Tessa Cox RN [address] [place] [address] documented as of this encounter Visit Diagnoses Not on filedocumented in this encounter Care Teams Glass Beveller Relationship Specialty Start Date End Date Handy Elias MD [address] [place] [address] PCP - General Internal Medicine 11/17/12 documented as of this encounter
--- OUTSIDE RECORDS SUMMARY | 2024-03-23 19:35 | XMS_ITS | Encounter Summary ---
Author Organization [employer] Address [address] [facility] 7 [place] [address] Care Team Providers Care Business Development Analyst Name Role Phone Handy Elias MD Primary Care Provider [phone] Reason for Visit * Reason Onset Date Comments Medication Question 02/07/2022 Encounter Details Date Type Department Care Team ([facility] st Contact Info) Description 02/07/2022 Telephone [facility] [address] [place] [address] Handy Elias MD [address] [place], [place] [phone] Medication Question Social History Tobacco Use Types Packs/Day Years Used Date Smoking Tobacco: Never Assessed Housing Stability Answer Date Recorded What is [...] * Telephone Encounter - Nia Monroe - 02/07/2022 8:31 AM EST Tc from pt ( [facility] ) requesting status update on script for Ambien, Advised script has been sent to pharmacy, stated pharmacy does not have script. Advised will leave a message for clarification. Please contact at [phone] documented in this encounter Plan of Treatment Upcoming Encounters Date Type Department Care Team ([facility] st Contact Info) Description 05/08/2024 2:00 PM EDT Office Visit [facility] [address] [place] [address] Handy Elias MD [address] [place] [address] 05/25/2024 3:00 PM EDT Telemedicine [facility] [address] [place] [address] Tessa Cox, MARITA [address] [place] [address] documented as of this encounter Visit Diagnoses Not on filedocumented in this encounter Care Teams Business Development Analyst Relationship Specialty Start Date End Date Handy Elias MD [address] [place] [address] PCP - General Internal Medicine 11/17/12 documented as of this encounter
--- OUTSIDE RECORDS SUMMARY | 2024-03-23 19:35 | XMS_ITS | Clinical Summary ---
Author Organization [employer] Address [address] [place] [address] 7 [place] [address] Care Team Providers Care Cattle Rancher Name Role Phone Handy Elias MD Primary Care Provider [phone] Allergies Active Allergy Reactions Criticality Noted Date Comments Bee Venom Other 10/04/2020 Other reaction(s): Other (see comments) Dust Mite Extract 08/20/2023 Molds & Smuts 02/21/2022 Pineapple Other 10/04/2020 Other reaction(s): Other (see comments) Pollen Extract 08/20/2023 Medications * This document contains information received from the source organization and may not represent a complete record from that organization. amLODIPine (Norvasc) 5 MG tablet Take 1 tablet by mouth. daily 018 Active cholecalcifero l (Vitamin D-3) 25 MCG (1000 UT) tablet Take 1 tablet by mouth. daily 018 Active Docusate Sodium (DSS) 100 MG capsule take 1 capsule by oral route twice daily as needed for constipation Active EPINEPHrine (EpiPen 2-Oc) 0.3 MG/0.3ML injection syringe inject (0.3MG) by intramuscular route once as needed for anaphylaxis 016 Active ezetimibe (Zetia) 10 MG tablet Take 1 tablet by mouth. daily Active gabapentin (Neurontin) 300 MG capsule take 1 capsule by oral route every 12 hours Active lidocaine (Xylocaine) 2 % gel To apply 2 to 3 times a day as needed 022 Active montelukast (Singulair) 10 MG tablet Take 1 tablet by mouth. daily Active rosuvastatin (Crestor) 20 MG tablet Take 1 tablet by mouth in the morning. Active zoster vaccine-recomb inant adjuvanted (Shingrix) 50 MCG/0.5ML vaccine Inject 0.5 mL into the shoulder, thigh, or buttocks. 022 Active loratadine (Claritin) 10 MG tablet Take by mouth. Activ e sildenafil (Viagra) 100 MG tabletIndicati ons:Erectile disorder Take 1 tablet (100 mg) by mouth if needed for erectile dysfunction. Every day as needed approximately 1 hour before sexual activity 30 tablet 3 023 Active triamcinolone (Kenalog) 0.1 % creamIndicatio ns:Dry skin to apply to the affected area 2 times a day Strength: 0.1 % 80 g 3 023 Active pseudoephedrin e ER (Sudafed 12 Hour) 120 MG 12 hr tablet Take 1 tablet (120 mg) by mouth every 12 (twelve) hours. Do not crush, chew, or split. 20 tablet 023 Active acetaminophen (Tylenol 8 Hour) 650 MG ER tabletIndicati ons:Chronic pain syndrome TAKE 1 TABLET BY MOUTH EVERY 8 HOURS NEEDED 90 tablet 5 023 Active cyclobenzaprin e (Flexeril) 10 MG tablet TAKE 1 TABLET BY MOUTH TWICE A DAY NEEDED FOR MUSCLE SPASMS 30 tablet 023 Active BD Integra Syringe 25G X 1 3 ML miscIndication s:Vitamin B12 deficiency USE 1 SYRINGE BY INTRAMUSCULAR ROUTE ONCE A MONTH FOR VITMAIN B12 INJECTIONS 12 each 1 023 Active furosemide (Lasix) 20 MG tabletIndicati ons:Swelling of lower limb Take 1 tablet (20 mg) by mouth in the morning. 30 tablet 023 Active exenatide ER (Bydureon BCise) 2 MG/0.85ML pen Inject 1 pen (2 mg) under the skin 1 (one) time per week. 4 mL 11 023 Active omeprazole (PriLOSEC) [address] capsuleIndicat ions:Gastroeso phageal reflux disease without esophagitis TAKE 1 CAPSULE BY MOUTH EVERY DAY BEFORE A MEAL 90 capsule 3 024 Active fluvoxaMINE (Luvox) 100 MG tabletIndicati ons:Depression with anxiety Take 1 tablet (100 mg) by mouth 2 times daily. 60 tablet 11 024 2024 Active temazepam (Restoril) 7.5 MG capsuleIndicat ions:Other insomnia Take 1 capsule (7.5 mg) by mouth if needed at bedtime for sleep. 30 capsule 024 Active dicyclomine (Bentyl) 10 MG capsuleIndicat ions:Left lower quadrant abdominal pain Take 1 capsule (10 mg) by mouth 4 times daily. 120 capsule 11 024 2024 Active hydrOXYzine pamoate (Vistaril) 50 MG capsuleIndicat ions:Anxiety TAKE 1 CAPSULE BY MOUTH EVERY 6 HOURS IF NEEDED FOR ITCHING 90 capsule 3 024 Active cyanocobalamin (Vitamin B-12) 1000 MCG/ML injectionIndic ations:Deficie ncy of other specified B group vitamins INJECT 1 ML ONCE A MONTH DIRECTED 12 mL 024 Active econazole nitrate 1 % cream Apply topically Once per day. 85 g 3 025 2025 Active naloxone (Narcan) 4 mg/0.1 mL nasal sprayIndicatio ns:Chronic pain syndrome Administer 1 spray (4 mg) into affected nostril(s) if needed for opioid reversal. 2 each 1 025 Active oxyCODONE (Roxicodone) 5 MG immediate release tabletIndicati ons:Chronic pain syndrome Take 1 tablet (5 mg) by mouth every 4 (four) hours if needed for severe pain for up to 28 days. Do not start before March 12, 2024. 168 tablet 025 2024 Active zolpidem (Ambien) 10 MG tabletIndicati ons:Primary insomnia TAKE 1 TABLET BY MOUTH AT BEDTIME NEEDED FOR SLEEP 30 tablet 025 Active naloxone (Narcan) 4 mg/0.1 mL nasal sprayIndicatio ns:Chronic pain syndrome Administer 1 spray (4 mg) into affected nostril(s) if needed for opioid reversal. 2 each 1 022 2024 Discontinued(R eorder (will not trigger notification to Pharmacy)) oxyCODONE (Roxicodone) 5 MG immediate release tabletIndicati ons:Chronic pain syndrome Take 1 tablet (5 mg) by mouth every 4 (four) hours if needed for severe pain for up to 28 days. Do not start before February 14, 2024. 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 Skin tag 02/21/2018 CKD (chronic kidney disease), stage III 09/23/19 Osteoporosis 09/22/2017 Chronic pain syndrome 11/20/2016 Erectile dysfunction 11/24/2012 Sciatica 11/24/2012 Hypercholesterolemia 07/14/2012 Hypertension 07/14/2012 Low back pain 07/14/2012 Obstructive sleep apnea syndrome 01/04/2010 Encounters Date Type Department Care Team Description 03/20/2024 Telephone [facility] [address] [place] [address] Handy Elias MD Imaging 03/19/2024 2:00 PM EST Office Visit [facility] [address] [place] [address] Handy Elias MD Abnormal LFTs (Primary Dx); Bruises easily; Fall, initial encounter; Other headache syndrome; SOB (shortness of breath) 03/19/2024 Travel 03/12/2024 Refill [facility] [address] [place] [address] Handy Elias MD Primary insomnia 03/10/2024 Patient Outreach [facility] [address] [place] [address] Handy Elias MD Pre-visit Planning (SDOH unable to reach LVM ) 03/10/2024 Refill [facility] [address] [place] [address] Handy Elias MD Chronic pain syndrome 03/05/2024 3:00 PM EST Clinical Support [facility] [address] [place] [address] Tessa Cox, operations support specialist pain syndrome 03/05/2024 Refill [facility] [address] [place] [address] Tessa Cox RN Chronic pain syndrome 03/05/2024 Travel 02/14/2024 Refill [facility] [address] [place] [address] Handy Elias MD Primary insomnia 02/11/2024 Refill [facility] [address] [place] [address] Handy Elias MD Chronic pain syndrome 02/09/2024 Refill [facility] [address] [place] [address] Handy Elias MD Deficiency of other specified B group vitamins 2024 Telephone [facility] [address] [place] [address] Handy Elias MD Referral 01/14/2024 Refill [facility] [address] [place] [address] Tessa Cox RN Chronic pain syndrome 01/14/2024 Telephone [facility] [address] [place] [address] Handy Elias MD Med Refill 01/14/2024 Refill [facility] [address] [place] [address] Handy Elias MD Primary insomnia 01/10/2024 Refill [facility] [address] [place] [address] Handy Elias MD Anxiety from Last 3 Months Immunizations Name Administration Dates Next Due Influenza Injectable Quadriv alant Preservative Free IIV4 MDCK 11/28/2019 Influenza injectable quadriv alent IIV4 with preservative 11/18/2017,12/19/2015 Influenza injectable quadriv alent preservative free 01/03/2021,11/20/2016,12/08/2014 Influenza, IIV3, injectable 12/03/2013 Influenza, Split (incl. dameon fied surface antigen) 11/24/2012,12/26/2011 Moderna Covid-19 Vaccine 12+ 03/23/2021 Pfizer Covid-19 Vaccine 12+ 10/03/2020, 1 TD (adult), 2 Lf tetanus tox oid, preservative free, adsorbed 11/26/2008 Tdap 11/18/2017 Social History Tobacco Use Types Packs/Day Years Used Date Smoking Tobacco: Every Day Cigarettes Passive Smoke Exposure: Past Smokeless Tobacco: Never Tobacco Cessation:Ready to Q uit: Not Asked; Counseling Given: Not Answered Comments:Smokes 5 to 10 cig a week [...] Orientation Straight 12/25/2021 10 :18 AM EDT Last Filed Vital Signs Vital Sign Reading [...] Mass Index 37.8 03/19/2024 2:08 PM EST Plan of Treatment Upcoming Encounters Date Type Department Care Team (Late st Contact Info) Description 05/08/2024 2:00 PM EDT Office Visit [facility] [address] [place] [address] Handy Elias MD [address] [place] [address] 05/25/2024 3:00 PM EDT Telemedicine [facility] [address] [place] [address] Tessa Cox RN [address] [place] [address] Health Maintenance Due Date Last Done Comments CT Colonography 1960 Depression Screening 1960 FIT DNA/Cologuard 1960 FIT 1960 FOBT 1960 Sigmoidoscopy 1960 Hepatitis C Screening 01/23/1976 Hepatitis A Vaccines (1 of 2 - Risk 2-dose series) 1977 Hepatitis B Vaccines (1 of 3 - Risk 3-dose series) 2018 RSV Patients and Patients Aged 60 years or older (1 - Risk 60-74 years 1-dose series) 2018 Pneumococcal Vaccine: 65+ Years (2 of 2 - PCV) 11/06/2022 11/06/2021 Colonoscopy 05/29/2023 05/28/2013 Colorectal Cancer Screening 05/29/2023 COVID-19 Vaccine ( season) 2023 11/27/2021, 03/23/2021, 10/03/2020, Additional history exists Influenza Vaccine (#1) 2023 , 12/15/2021, 01/03/2021, Additional history exists SDOH Screening 08/06/2024 08/07/2023 Alcohol/Substance Use Screening 03/19/2025 03/19/2024 Tobacco Screening 03/19/2025 03/19/2024 Lipid Panel 01/01/2027 01/01/2022, 07/26, 12/09/2020, Additional history exists DTaP/Tdap/Td Vaccines (2 - Td or Tdap) 11/19/2027 11/18/2017, 11/26/2008 Zoster Vaccines Completed 12/12/2022, 08/25/2022 HIB Vaccines Aged Out No longer eligi ble based on patient's age to complete this topic HPV Vaccines Aged Out No longer eligi ble based on patient's age to complete this topic IPV Vaccines Aged Out No longer eligi ble based on patient's age to complete this topic Meningococcal Vaccine Aged Out No keshia zeeshan eligible based on patient's age to complete this topic RSV under 20 months Aged Out No longe r eligible based on patient's age to complete this topic Rotavirus Vaccines Aged Out No longer eligible based on patient's age to complete this topic Procedures Procedure Name Priority Date/Time Associated Diagnosis Comments APTT Routine 03/23/2024 4:24 PM EST Bruises easily PROTHROMBIN TIME-INR Routine 03/23/2024 4:24 PM EST Bruises easily BASIC METABOLIC PANEL Routine 03/23/2024 4:24 PM EST Bruises easily CBC WITH AUTO DIFFERENTIAL Routine 03/23/2024 4:24 PM EST Bruises easily XR CHEST 2 VIEWS Routine 03/23/2024 3:44 PM EST SOB (shortness of breath) POCT SAL-14 URINE DRUG SCREEN Routine 03/05/2024 3:06 PM EST Chronic pain syndrome ZZZ HISTORICAL LIPID PANEL Routine 01/01/2022 11:44 AM EST HM COLONOSCOPY Routine 05/28/2013 from Last 3 Months or Most Recently Relevant to Health Maintenance Results * (ABNORMAL) CBC auto differential (03/23/2024 4:24 PM EST) White Blood Count 9.8 4.8 - 10.8 X10*3/uL [facility] Red Blood Count 5.06 4.60 - 5.80 X10*6/uL [facility] Hemoglobin 15.9 14.0 - 18.0 g/dl [facility] Hematocrit 47.7 42.0 - 52.0 % [facility] Mean Corpuscular Volume 94.3 80.0 - 98.0 fL [facility] Mean Corpuscular Hemoglobin 31.4 27.0 - 33.0 pg [facility] Mean Corpuscular HGB Conc 33.3 31.0 - 36.0 g/dl [facility] Red Cell Distribution Width 14.0 11.0 - 16.0 % [facility] Platelet Count 293 160 - 400 X10*3/uL [facility] Mean Platelet Volume 9.9 9.4 - 12.4 fL [facility] Neutrophils Percent Auto 65.0 45 - 73 % [facility] Imm Gran Pct Auto 2.4(H) 0.0 - 0.4 % [facility] Lymphocytes Percent Auto 19.0(L) 20 - 40 % [facility] Monocytes Percent Auto 10.3 2 - 11 % [facility] Eosinophils Percent Auto 2.6 0 - 4 % [facility] Basophils Percent Auto 0.7 0 - 2 % [facility] NRBC Pct Auto 0.0 0.0 - 0.2 /100WBC [facility] Neutrophils Absolute Auto 6.4 2.0 - 8.3 x10*3/uL [facility] Imm Gran Abs Auto 0.23(H) 0.00 - 0.03 X10*3/uL [facility] Lymphocytes Absolute Auto 1.9 1.2 - 4.9 X10*3/uL [facility] Monocytes Absolute Auto 1.0 0.1 - 1.2 X10*3/uL [facility] Eosinophils Absolute Auto 0.3 0.0 - 0.4 X10*3/uL [facility] Basophils Absolute Auto 0.1 0.0 - 0.2 X10*3/uL [facility] NRBC Abs Auto 0.000 0.0 - 0.012 X10*3/uL [facility] Blood Venous blood specimen / Unknown 03/23/2024 4:24 PM EST 03/23/2024 4:24 PM EST us Handy Elias MD LAB BLOOD ORDERABLES Final Result Performing Organization Address City/[facility]/ZIP Co de Phone Number [facility] [address] [place] [phone] * Partial Thromboplastin Time, Activated (APTT) (03/23/2024 4:24 PM EST) Pathologist [facility] Partial Thromboplastin Time 32.8 26.0 - 36.8 SEC [facility] Comment:For information rega rding the monitoring of direct thrombininhibitors, please refer to Pharmacy. Blood Venous blood specimen / Unknown 03/23/2024 4:24 PM EST 03/23/2024 4:24 PM EST us Handy Elias MD LAB BLOOD ORDERABLES Final Result Performing Organization Address [facility]/ZIP Co de Phone Number [facility] [address] [place] [phone] * Prothrombin Time-INR (03/23/2024 4:24 PM EST) Prothrombin Time 11.0 10.9 - 12.4 SEC [facility] INTERNATIONAL NORM RATIO 0.9 0.9 - 1.1 [facility] Comment:INTERNATIONAL NORMAL IZED RATIO (INR) REFERENCE [...] Elias MD LAB BLOOD ORDERABLES Final Result [facility] [address] [place], [place] [phone] * (ABNORMAL) Basic Metabolic Panel (03/23/2024 4:24 PM EST) Sodium 136 135 - 145 mmol/L [facility] Potassium 4.8 3.3 - 5.1 mmol/L [facility] Chloride 105 96 - 108 mmol/L [facility] Carbon Dioxide 23 22 - 29 mmol/L [facility] Anion Gap 13 12 - 20 [facility] Urea Nitrogen (BUN) 18(H) 9 - 16 mg/dL [facility] Creatinine, Serum 1.39 0.5 - 1.4 mg/dL [facility] Estimated Glomerular Filt Rate 51 [facility] Comment:Chronic Kidney Disea se: Estimated GFR < 60 mL/min/[id number] Kidney Disease: Estimated GFR < 15 mL/min/1.73m2 Glucose 92 60 - 115 mg/dL [facility] Calcium 9.4 8.4 - 10.2 mg/dL [facility] Blood Venous blood specimen / Unknown 03/23/2024 4:24 PM EST 03/23/2024 4:24 PM EST us Handy Elias MD LAB BLOOD ORDERABLES Final Result [facility] [address] [place] [phone] [phone] * XR Chest 2 Views (03/23/2024 3:44 PM EST) Anatomical Region Laterality Modality Chest Radiographic Ame ging 03/23/2024 3:44 PM EST Narrative 03/23/2024 5:03 PM EST ? [facility] ?[address] ?[place] [address] ?XRay Report ? Signed ? Patient: Srinivas,Henri F ?MR#: [id number] ?? 79 ? : 1960 ?Acct:[id number] ? Age/Sex: 64 / M ?ADM Date: 03/23/24 ? Loc: HO.CT ? Attending Dr: Handy Elias MD ? Ordering Physician: Handy Elias MD ?? Date of Service: 03/23/24 ?? Procedure(s): XR chest 2V ?? Accession Number(s): [id number] ? cc: Handy Elias MD ? EXAMINATION: [...] 05:00 PM EST RP ? Dictated By: ?Li,Rasheed S MD ? Signed By: ?<Electronically signed by Rasheed S MD Li in OV> ?03/23/24 1700 ? DD/ 1544 ? TD/TT: 03/23/24 1605 ? Juice Standardizer: MSM ? Procedure Note Donotuseinterpreter, Image - 03/23/[address] [address] XRay Report Signed Patient: Henri Espino FMR#: [id number] [birth year] : 8Acct:[id number] Age/Sex: 64 / MADM Date: 03/23/24 Loc: HO.CT Attending Dr: Handy Elias MD Ordering Physician: Handy Elias MD Date of Service: 03/23/24 Procedure(s): XR chest 2V Accession Number(s): [id number] cc: Handy Elias MD EXAMINATION: XR CHEST [...] 03/23/24 1700 DD/ 1544 TD/TT: 03/23/24 1605 Juice Standardizer: [facility] us Handy Elias MD IMG XR PROCEDURES Final Res ult * POCT SAL-14 Urine Drug Screen (03/05/2024 3:06 PM EST) Oxycodone Screen, Urine Positive Urine Urine specimen obtained by clean catch procedure / Unknown 03/05/2024 3:06 PM EST Narrative Tessa Cox RN - 03/05/2024 3:06 PM EST Lot# [id number] Exp: 01-31-25 us Handy Elias MD POINT OF CARE TEST ENTER/ED IT ORDERABLES Final Result * LIPID PANEL (01/01/2022 11:44 AM EST) Cholesterol 208 mg/dL [facility] Comment: Desirable Cholesterol: ?less than 200 mg/dL Borderline High Cholesterol: ??200-239 mg/dL High Cholesterol: ? greater than 239 mg/dL HDL Cholesterol 43 mg/dL [facility] Comment: Desirable HDL: ??greater than 40 mg/dL ?? Note: This HDL assay may give artificially ? low results in patients with liver disease. LDL Cholesterol Calculated 149 mg/dl [facility] Comment: Desirable LDL: ? less than 100 mg/dL Near Optimal/Above Optimal LDL: ??110-129 mg/dL Borderline High LDL: ? 130-159 mg/dL High LDL: ?160-189 mg/dL Very High LDL: ? greater than or equal to ?190 mg/dL Triglycerides 82 mg/dL [facility] Comment: Desirable Triglyceride: ? less than 150 mg/dL Borderline High Triglyceride ??150-199 mg/dL High Triglyceride: ?200-499 mg/dL Very High Triglyceride: ? greater than or equal to ? 5OO mg/dL 01/01/2022 11:4 4 AM EST us Historical Provider HISTORICAL/NON ORDERABLE LABS Final Result [facility] * Hm Colonoscopy (05/28/2013) Colonoscopy Performed us Historical Provider HEALTH MAINTENANCE Final Result from Last 3 Months or Most Recently Relevant to Health Maintenance Insurance MEDICARE Member Subscriber Plan / Payer (Ef fective 2023-Present) Name:Henri Espino Member ID:[id number] Relation to Subscriber:Self Name:Henri Espino Subscriber ID:[id number] Payer ID:STATE Group ID:Not on file Type:Medicare Address: [facility] [address] [id number] [facility] MEDEX CARE Care Teams Cattle Rancher Relationship Specialty Start Date End Date Handy Elias MD [address] [place] [phone] PCP - General Internal Medicine 11/17/12
--- OUTSIDE RECORDS SUMMARY | 2024-03-23 19:35 | XMS_ITS | Encounter Summary ---
Author Organization [employer] Address [address] [place] [address] [place] [address] Care Team Providers Care Senior Investment Manager Name Role Phone aHndy Elias MD Primary Care Provider [phone] Reason for Visit * Reason Onset Date Comments Med Refill 02/13/2023 Encounter Details Date Type Department Care Team (Late st Contact Info) Description 02/13/2023 Telephone [facility] [place] [facility] [address] [place] [address] Handy Elias MD [address] [place], [place] [phone] Med Refill Social History Tobacco Use Types [...] * Telephone Encounter - Emilee Mauricio - 02/13/2023 9:33 AM EST Tc from requesting med refill on; oxyCODONE (Roxicodone) 5 MG immediate release tablet [facility]/pharmacy #[id number] - [place] - [address] [place] [address] [address] [facility] [address] documented in this encounter Plan of Treatment Upcoming Encounters Date Type Department Care Team (Late st Contact Info) Description 05/08/2024 2:00 PM EDT Office Visit [facility] [address] [place] [address] Handy Elias MD [address] [place] [address] 05/25/2024 3:00 PM EDT Telemedicine [facility] [address] [place] [address] Tessa Cox, MARITA [address] [place] [address] documented as of this encounter Visit Diagnoses Not on filedocumented in this encounter Care Teams Senior Investment Manager Relationship Specialty Start Date End Date Handy Elias MD [address] [place] [address] PCP - General Internal Medicine 11/17/12 documented as of this encounter
--- OUTSIDE RECORDS SUMMARY | 2024-03-23 19:35 | XMS_ITS | Encounter Summary ---
Author Organization [employer] Address [address] [place] [address] Care Team Providers Care Climate Change Risk Assessor Name Role Phone Handy Elias MD Primary Care Provider [phone] Reason for Visit * Reason Onset Date Comments Call Back Request 06/19/2023 Encounter Details Date Type Department Care Team (Late st Contact Info) Description 06/19/2023 Telephone [facility] [address] [place] [address] Handy Elias MD [address] [place] [address] Call Back Request Social History Tobacco Use [...] * Telephone Encounter - Nick Dickson - 06/19/2023 3:08 PM EDT Tc from the patients spouse requesting a call back in regards to a medication situation no other information was provided documented in this encounter Plan of Treatment Upcoming Encounters Date Type Department Care Team (Late Contact Info) Description 05/08/2024 2:00 PM EDT Office Visit [facility] [address] [place] [address] Handy Elias MD [address] [place] [address] 05/25/2024 3:00 PM EDT Telemedicine [facility] [address] [place] [address] Tessa Cox RN [address] [place] [address] documented as of this encounter Visit Diagnoses Not on filedocumented in this encounter Care Teams Climate Change Risk Assessor Relationship Specialty Start Date End Date Handy Elias MD [address] [place] [address] PCP - General Internal Medicine 11/17/12 documented as of this encounter
--- OUTSIDE RECORDS SUMMARY | 2024-03-23 19:35 | XMS_ITS | Encounter Summary ---
Author Organization [employer] Address [address] [place] [address] Care Team Providers Care Help Desk Internship Name Role Phone Handy Elias MD Primary Care Provider [phone] Reason for Visit * Reason Onset Date Comments Med Refill 11/19/2023 Encounter Details Date Type Department Care Team (Late st Contact Info) Description 11/19/2023 Telephone [facility] [address] [place] [address] Handy Elias MD [address] [place], [place] [phone] Med Refill Social History Tobacco Use Types [...] * Telephone Encounter - Nia Monroe - 11/19/2023 8:11 AM EDT Tc from pt requesting a refill for oxyCODONE (Roxicodone) 5 MG immediate release tablet documented in this encounter Plan of Treatment Upcoming Encounters Date Type Department Care Team (Late st Contact Info) Description 05/08/2024 2:00 PM EDT Office Visit [facility] [address] [place] [address] Handy Elias MD [address] [place] [address] 05/25/2024 3:00 PM EDT Telemedicine [facility] [address] [place] [address] Tessa Cox, MARITA [address] [place] [address] documented as of this encounter Visit Diagnoses Not on filedocumented in this encounter Care Teams Help Desk Internship Relationship Specialty Start Date End Date Handy Elias MD [address] [place] [address] PCP - General Internal Medicine 11/17/12 documented as of this encounter
--- OUTSIDE RECORDS SUMMARY | 2024-03-23 19:35 | XMS_ITS | Encounter Summary ---
Author Organization [employer] Address [address] [place] [address] 7 [place] [address] Care Team Providers Care Freight Car Repairer Name Role Phone Handy Elias MD Primary Care Provider [phone] Encounter Details Date Type Department Care Team (Late Contact Info) Description 12/12/2022 Orders Only [facility] [address] [place], [place] [phone] Handy Elias MD [address] [place], [place] [phone] Vitamin B12 deficiency (Primary Dx) Social History Tobacco Use Types [...] [facility] [place] [facility] [address] [place], [place] [phone] Handy Elias MD [address] [place], [place] [phone] 05/25/2024 3:00 PM EDT Telemedicine [facility] [place] [facility] [address] [place] [address] Tessa Cox RN 505 [place] [address] documented as of this encounter Visit Diagnoses Diagnosis Vitamin B12 deficiency- Primary Other B-complex deficiencies documented in this encounter Care Teams Freight Car Repairer Relationship Specialty Start Date End Date Handy Elias MD 505 [place] [address] PCP - General Internal Medicine 11/17/12 documented as of this encounter
== END 2024-03-23 15:38 | disposition home or self-care (01) ==
LOC: HO.CT 15:37
PROVIDERS: PCP Internal Medicine; Visit Provider Internal Medicine
DX: R06.02 Shortness of breath (principal); R23.3 Spontaneous ecchymoses; G44.89 Other headache syndrome
CPT/HCPCS: 36415; 70450; 71046; 80048; 85025; 85610; 85730

== ENCOUNTER → 2024-03-23 15:44 | Outpatient (BNV) | payer MEDICARE, SELFPAY | PROVIDERS: PCP Internal Medicine; Visit Provider Radiology Diagnostic Radiology | DX: R51.9 Headache, unspecified (principal) | CPT/HCPCS: 70450; 71046 ==

== ENCOUNTER 2024-03-25 12:39 | Outpatient (REF) | payer MEDICARE, SELFPAY ==
--- NOTE | ~2024-03-25 | US_ITS ---
CLINICAL HISTORY: Elevated LFTs US abdomen complete with duplex and color Doppler Comparison: None Findings: The visualized pancreas, and inferior vena cava are unremarkable. Calcified atherosclerotic plaque abdominal aorta. Liver normal size and mildly echogenic. Right lobe 17.1 cm length. No focal hepatic masses. Common duct 2.4 mm diameter. Physiologic distention of the gallbladder. No gallstones or sludge. Tail sign suggest adenomyomatosis. Mural cyst versus diverticulum within the fundus of the gallbladder measuring 11 x 6 x 5 mm. No pericholecystic fluid. No sonographic Mustafa sign. Main portal vein antegrade. Right kidney normal size, 10.4 cm in length. Normal cortical width and echotexture. No solid or cystic renal masses. No nephrolithiasis or hydronephrosis. Left kidney normal, 11.9 cm in length. Normal cortical width and echotexture. No solid or cystic renal masses. No nephrolithiasis or hydronephrosis. Spleen measures 13.6 cm. No splenic masses. No ascites. No lymphadenopathy. Impression: 1. 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 No gallstones demonstrated. Suspect mild intrahepatic ductal dilatation. MRCP may be of further diagnostic value. 2. Mild splenomegaly. Echogenic liver reflecting hepatic steatosis or mild diffuse hepatocellular disease. 3. Calcified plaque abdominal aorta. This document has been electronically signed by: Andrey Santamaria MD on 03/27/2024 11:50:14
--- OUTSIDE RECORDS SUMMARY | 2024-03-25 14:47 | XMS_ITS | Encounter Summary ---
Author Organization [facility] Address [address] [place] [address] Phone Care Team Providers Care Candy Waffle Assembler Name Role Phone Handy Elias MD Primary Care Provider [phone] Encounter Details Date Type Department Care Team (Late st Contact Info) Description 2022 Telephone [facility] [address] [place] [address] Christie Leone Social History Tobacco [...] on filedocumented in this encounter Care Teams Candy Waffle Assembler Relationship Specialty Start Date End Date Handy Elias MD PCP - General Internal Medicine 10/19/20 documented as of this encounter
--- OUTSIDE RECORDS SUMMARY | 2024-03-25 14:47 | XMS_ITS | Encounter Summary ---
Author Organization [employer] Address [address] [facility] 7 [place] [address] Care Team Providers Care Net Software Developer Name Role Phone Handy Elias MD Primary Care Provider [phone] Reason for Visit * Reason Onset Date Comments Med Refill 03/10/2024 Encounter Details Date Type Department Care Team (Late st Contact Info) Description 03/10/2024 Refill [facility] MED[facility]INE [address] [place] [address] Handy Elias MD 505 [place], [place] [phone] Chronic pain syndrome Social History Tobacco Use [...] immediate release tablet To be sent to: [facility]/pharmacy #[id number] - [place], [place] - [address] [place] [address] documented in this encounter Plan of Treatment Upcoming Encounters Date Type Department Care Team (Late st Contact Info) Description 05/08/2024 2:00 PM EDT Office Visit [facility] [place] [facility] [address] [place] [address] Handy Elias MD 505 [place] [address] 05/25/2024 3:00 PM EDT Telemedicine [facility] [place] [facility] 505 [place] [address] Tessa Cox RN 505 [place] [address] documented as of this encounter Visit Diagnoses Diagnosis Chronic pain syndrome documented in this encounter Care Teams Net Software Developer Relationship Specialty Start Date End Date Handy Elias MD [address] [place] [address] PCP - General Internal Medicine 11/17/12 documented as of this encounter
--- OUTSIDE RECORDS SUMMARY | 2024-03-25 14:47 | XMS_ITS | Encounter Summary ---
Author Organization [employer] Address [address] [facility] [address] [place] [address] Care Team Providers Care Music Autographer Name Role Phone Handy Elias MD Primary Care Provider [phone] Encounter Details Date Type Department Care Team [...] 05/08/2024 2:00 PM EDT Office Visit [facility] [address] [place] [address] Handy Elias MD 505 [place] [address] 05/25/2024 3:00 PM EDT Telemedicine [facility] [address] [place] [address] Tessa Cox RN 505 [place] [address] documented as of this encounter Visit Diagnoses Not on filedocumented in this encounter Care Teams Music Autographer Relationship Specialty Start Date End Date Handy Elias MD [address] [place] [address] PCP - General Internal Medicine 11/17/12 documented as of this encounter
--- OUTSIDE RECORDS SUMMARY | 2024-03-25 14:47 | XMS_ITS | Encounter Summary ---
Author Organization [employer] Address [address] [facility] 7 [place] [address] Care Team Providers Care Doughnut Dough Mixer Name Role Phone Handy Elias MD Primary Care Provider [phone] Reason for Visit * Reason Onset Date Comments Med Refill 03/05/2024 Encounter Details Date Type Department Care Team ([facility] st Contact Info) Description 03/05/2024 Refill [facility] [address] [place] [address] Tessa Cox, RN 505 [place] [address] Chronic pain syndrome Social History Tobacco Use [...] t he electric, gas, oil or water [employer] threatened to shut off services in your [...] Description 05/08/2024 2:00 PM EDT Office Visit [facility] [address] [place] [address] Handy Elias MD 505 [place] [address] 05/25/2024 3:00 PM EDT Telemedicine [facility] [address] [place] [address] Tessa Cox RN [address] [place] [address] documented as of this encounter Visit Diagnoses Diagnosis Chronic pain syndrome documented in this encounter Care Teams Doughnut Dough Mixer Relationship Specialty Start Date End Date Handy Elias MD [address] [place] [address] PCP - General Internal Medicine 11/17/12 documented as of this encounter
--- OUTSIDE RECORDS SUMMARY | 2024-03-25 14:47 | XMS_ITS | Encounter Summary ---
Author Organization [employer] Address [address] [facility] 7 [place] [address] Care Team Providers Care Mess Attendant Crew Name Role Phone Handy Elias MD Primary Care Provider [phone] Reason for Visit * Reason Comments Med Refill Encounter Details Date Type Department Care Team (Late st Contact Info) Description 03/12/[address] [facility] MEDICINE [address] [place] [address] Handy Elias MD 505 [place], [place] [phone] Primary insomnia Social History Tobacco Use Types [...] the past 12 months, has t he [employer], [employer], oil or water company threatened to shut [...] 2:00 PM EDT Office Visit [facility] MED [facility] PEDS 505 [place] [address] Handy Elias MD 505 [place] [address] 05/25/2024 3:00 PM EDT Telemedicine [facility] MED [facility] PEDS 505 [place] [address] Tessa Cox RN 505 [place] [address] documented as of this encounter Visit Diagnoses Diagnosis Primary insomnia Persistent disorder of initiating or maintaining sleep documented in this encounter Care Teams Mess Attendant Crew Relationship Specialty Start Date End Date Handy Elias MD [address] [place] [address] PCP - General Internal Medicine 11/17/12 documented as of this encounter
--- OUTSIDE RECORDS SUMMARY | 2024-03-25 14:47 | XMS_ITS | Encounter Summary ---
Author Organization [employer] Address [address] [facility] 7 [place] [address] Care Team Providers Care Radiation Control Technician Name Role Phone Handy Elias MD Primary Care Provider [phone] Reason for Visit * Reason Onset Date Comments Med Refill 11/19/2023 Encounter Details Date Type Department Care Team (Late st Contact Info) Description 11/19/2023 Telephone [facility] MEDICINE [address] [place] [address] Handy Elias MD [address] [place], [place] [phone] Med Refill Social History Tobacco Use Types [...] 2:00 PM EDT Office Visit [facility] MED & PEDS [address] [place] [address] Handy Elias MD [address] [place] [address] 05/25/2024 3:00 PM EDT Telemedicine [facility] [address] [place] [address] Tessa Cox, MARITA 505 [place] [address] documented as of this encounter Visit Diagnoses Not on filedocumented in this encounter Care Teams Radiation Control Technician Relationship Specialty Start Date End Date Handy Elias MD 505 [place] [address] PCP - General Internal Medicine 11/17/12 documented as of this encounter
--- OUTSIDE RECORDS SUMMARY | 2024-03-25 14:47 | XMS_ITS | Encounter Summary ---
Author Organization [employer] Address [address] [facility] 7 [place] [address] Care Team Providers Care Trimmer Sawyer Name Role Phone Handy Elias MD Primary Care Provider [phone] Reason for Visit * Reason Onset Date Comments Medication Question 02/07/2022 Encounter Details Date Type Department Care Team ([facility] st Contact Info) Description 02/07/2022 Telephone [facility] MEDICINE [address] [place] [address] Handy Elias MD 505 [place], [place] [phone] Medication Question Social History Tobacco Use Types [...] a message for clarification. Please contact at [phone] documented in this encounter Plan of Treatment Upcoming Encounters Date Type Department Care Team ([facility] st Contact Info) Description 05/08/2024 2:00 PM EDT Office Visit [facility] PED[facility] [address] [place] [address] Handy Elias MD [address] [place] [address] 05/25/2024 3:00 PM EDT Telemedicine [facility] P[facility] [address] [place] [address] Tessa Cox, MARITA 505 [place] [address] documented as of this encounter Visit Diagnoses Not on filedocumented in this encounter Care Teams Trimmer Sawyer Relationship Specialty Start Date End Date Handy Elias MD 505 [place] [address] PCP - General Internal Medicine 11/17/12 documented as of this encounter
--- OUTSIDE RECORDS SUMMARY | 2024-03-25 14:47 | XMS_ITS | Encounter Summary ---
Author Organization [employer] Address [address] [facility] 7 [place] [address] Care Team Providers Care Farm Equipment Mechanic Name Role Phone Handy Elias MD Primary Care Provider [phone] Reason for Visit * Reason Comments controlled substance treatment Encounter Details Date Type Department Care Team (Latest Contact Info) Description 03/05/2024 3:00 PM EST Clinical Support [facility] MED & PEDS [address] [place], [place] [phone] Tessa Cox, RN [address] [place], [place] Chronic pain syndrome Social History Tobacco [...] the past 12 months, has t he [employer], gas, oil or water [employer] threatened to shut off services in your home? No 08/07/2023 Sex and Gender Information Value Date Recorded Sex Assigned at Male 12/25/2021 10:18 AM EDT Legal Sex Male 10:18 AM EDT Gender Identity Male 12/25/2021 10:18 AM EDT Sexual Orientation Straight 12/25/2021 10 :18 AM EDT documented as of this encounter Progress Notes * Tessa Cox RN - 03/05/2024 3:00 PM EST S: COTA NV. Patient is taking Oxycodone 5mg q4-6hrs [...] Patient receives cort[facility]oneinjections to [facility] knees at [facility] and hips at [facility], pain management. States it is helping a little . No questions/ concerns at this time. COTA Agreement renewed today. O: VSS. COTA tier 4. MANAGER RELOCATION checked on 03/05/24. Pill count performed, patient has 44 Oxycodone at this time, 44 expected. Medications are not being overused. utox performed, positive for OXY only. .Fentanyl testing: negative Lot# [id number] Exp: 02-08-25 BPI updated today. Pain severity score of (X), activity interference score of (X). Previous BPI completed (10/04/22) with pain severity score of (6.5), activity interference score of (3). A: Chronic opioid and BZO use r/t chronic pain and anxiety. P: Patient to cont. with current medication regimen as needed and take medication only as directed.F/u for next COTA NV scheduled for 05/25/24 @ 3pm. PE with PCP 03/19/24. f/u sooner PRN. Patient verbalized understanding and agreed to plan. documented in this encounter Plan of Treatment Upcoming Encounters Date Type Department Care Team (Late st Contact Info) Description 05/08/2024 2:00 PM EDT Office Visit [facility] MED & PEDS [address] [place] [address] Handy Elias MD 505 [place] [address] 05/25/2024 3:00 PM EDT Telemedicine [facility] MED & PEDS 505 [place] [address] Tessa Cox RN 505 [place] [address] documented as of this encounter Procedures Procedure [...] RN - 03/05/2024 3:06 PM EST Lot# [id number] Exp: 01-31-25 us Handy Elias MD POINT OF CARE TEST ENTER/ED IT ORDERABLES Final Result documented in this encounter Visit Diagnoses Diagnosis Chronic pain syndrome documented in this encounter Care Teams Farm Equipment Mechanic Relationship Specialty Start Date End Date Handy Elias MD [address] [place] [address] PCP - General Internal Medicine 11/17/12 documented as of this encounter
--- OUTSIDE RECORDS SUMMARY | 2024-03-25 14:47 | XMS_ITS | Encounter Summary ---
Author Organization [employer] Address [address] [facility] 7 [place] [address] Care Team Providers Care Garment Examiner Name Role Phone Handy Elias MD Primary Care Provider [phone] Reason for Visit * Reason Comments Pre-visit Planning SDOH unable to reach LVM Encounter Details Date Type Department Care Team ([facility] st Contact Info) Description 03/10/[address] [facility] PEDS [address] [place], [place] [phone] Handy Elias MD [address] [place], [place] [phone] Pre-visit Planning (SDOH unable to reach LVM [...] Upcoming Encounters Date Type Department Care Team ([facility] st Contact Info) Description 05/08/2024 2:00 PM EDT Office Visit [facility] PEDS [address] [place] [address] Handy Elias MD [address] [place] [address] 05/25/2024 3:00 PM EDT Telemedicine [facility] PED[facility] [address] [place] [address] Tessa Cox RN 505 [place] [address] documented as of this encounter Visit Diagnoses Not on filedocumented in this encounter Care Teams Garment Examiner Relationship Specialty Start Date End Date Handy Elias MD [address] [place] [address] PCP - General Internal Medicine 11/17/12 documented as of this encounter
--- OUTSIDE RECORDS SUMMARY | 2024-03-25 14:47 | XMS_ITS | Encounter Summary ---
Author Organization [employer] Address [address] [facility] 7 [place] [address] Care Team Providers Care Planer Stone Name Role Phone Handy Elias MD Primary Care Provider [phone] Reason for Visit * Reason Onset Date Comments Med Refill 11/15/2023 Encounter Details Date Type Department Care Team (Late st Contact Info) Description 11/15/2023 Telephone [facility] MEDICINE [address] [place] [address] Handy Elias MD [address] [place], [place] [phone] Med Refill Social History Tobacco Use Types [...] MG tablet To be sent to: [facility]/pharmacy #[id number] - [place], [place] - [address] [place] [address] documented in this encounter Plan of Treatment Upcoming Encounters Date Type Department Care Team (Late st Contact Info) Description 05/08/2024 2:00 PM EDT Office Visit [facility] MED & PEDS [address] [place] [address] Handy Elias MD 505 [place] [address] 05/25/2024 3:00 PM EDT Telemedicine [facility] MED & PEDS [address] [place] [address] Tessa Cox RN 505 [place] [address] documented as of this encounter Visit Diagnoses Not on filedocumented in this encounter Care Teams Planer Stone Relationship Specialty Start Date End Date Handy Elias MD 505 [place] [address] PCP - General Internal Medicine 11/17/12 documented as of this encounter
--- OUTSIDE RECORDS SUMMARY | 2024-03-25 14:47 | XMS_ITS | Clinical Summary ---
Author Organization [employer] Address [address] [place] [address] 7 [place] [address] Care Team Providers Care Garment Manufacturing Supervisor Name Role Phone Handy Elias MD Primary Care Provider [phone] Allergies Active Allergy Reactions Criticality Noted Date [...] Encounters Date Type Department Care Team Description 03/24/2024 Telephone [facility] [address] [place] [phone] Handy Elias MD Results 03/20/[address] [facility] [address] [place] [address] Handy Elias MD Imaging 03/19/2024 2:00 PM EST Office Visit [facility] [address] [place], [place] [phone] Handy Elias MD Abnormal LFTs (Primary Dx); Bruises easily; Fall, initial encounter; Other headache syndrome; SOB (shortness of breath) 03/19/2024 Travel 03/12/2024 Refill [facility] [address] [place] [address] Handy Elias MD Primary insomnia 03/10/[address] [facility] [address] [place] [address] Handy Elias MD Pre-visit Planning ([facility] unable to reach [facility] ) 03/10/2024 Refill [facility] [address] [place] [address] Handy Elias MD Chronic pain syndrome 03/05/2024 3:00 PM EST Clinical Support [facility] [address] [place] [address] Tessa Cox RN Chronic pain syndrome 03/05/[address] [facility] [address] [place] [address] Tessa Cox RN Chronic pain syndrome 03/05/2024 Travel 02/14/2024 Refill [facility] [address] [place] [address] Handy Elias MD Primary insomnia 02/11/2024 Refill [facility] [address] [place] [address] Handy Elias MD Chronic pain syndrome 02/09/[address] [facility] [address] [place] [address] Handy Elias MD Deficiency of other specified B group vitamins 2024 Telephone [facility] [address] [place] [address] Handy Elias MD Referral 01/14/[address] [facility] [address] [place] [address] Tessa Cox RN Chronic pain syndrome 01/14/2024 Telephone [facility] [address] [place] [address] Handy Elias MD Med Refill 01/14/2024 Refill [facility] [address] [place] [address] Handy Elias MD Primary insomnia 01/10/[address] [facility] [address] [place] [address] Handy Elias MD Anxiety from Last 3 [facility] [address] [place] [address] Handy Elias MD [address] [place] [address] 05/25/2024 3:00 PM EDT Telemedicine [facility] [address] [place] [address] Tessa Cox RN [address] [place] [address] Health Maintenance Due Date Last Done Comments [...] 60-74 years 1-dose series) 2018 Pneumococcal Vaccine: 50+ Years (2 of 2 - PCV) 11/06/2022 11/06/2021 Colonoscopy 05/29/2023 05/28/2013 Colorectal Cancer Screening 05/29/2023 COVID-19 Vaccine ( - season) 2023 11/27/2021, 03/23/2021, 10/03/2020, Additional history [...] Name Priority Date/Time Associated Diagnosis Comments CT HEAD WO CONTRAST Urgent 03/23/2024 4 :26 PM EST Other headache syndrome APTT Routine 03/23/2024 4:24 PM EST Bruises [...] Recently Relevant to Health Maintenance Results * CT Head w/o Contrast (03/23/2024 4:26 PM EST) Anatomical Region Laterality Modality Head, Neck Computed Tomogra phy 03/23/2024 4:26 PM EST Narrative 03/24/2024 7:12 AM EST ? [facility] ?[address] ?[place] [address] ? CT Scan Report ? Signed ? Patient: Henri Espino ?MR#: [id number] ?? 81 ? : 1960 ?Acct:[id number] ? Age/Sex: 64 / M ?ADM Date: 03/23/24 ? Loc: HO.CT ? Attending Dr: Handy Elias MD ? Ordering Physician: Handy Elias MD ?? Date of Service: 03/23/24 ?? Procedure(s): CT head/brain wo IV con ?? Accession Number(s): [id number] ? cc: Handy Elias MD ? Report Number: ?? [id number]: Total DLP = ??853.00 mGy-cm ?? EXAMINATION: ?? CT HEAD WITHOUT CONTRAST ? CLINICAL INFORMATION: ?? Incidental headache after fall in parking lot. ? COMPARISON: ?? None available. ? TECHNIQUE: ?? Contiguous axial imaging was performed from the skull base to vertex ?? without intravenous administration of contrast. ? This CT examination was performed using dose optimization techniques as ?? appropriate, variously including the following: ?? *Automated exposure control ?? *Adjustment of mA and/or kV according to patient size (this includes ?? techniques or standardized protocols for targeted exams where dose is ?? matched to indication/reason for exam; i.e. extremities or head) ?? *Use of iterative reconstruction technique ?? DLP: 853 mGy/cm. ? FINDINGS: ?? There is no acute intra-axial, extra-axial bleed, masses or midline ?? shift. There is no acute infarction in evolution. There is no edema. ?? The spangler to white matter differentiation is maintained normal. The ?? lateral ventricles are symmetrical in size and configuration with mild ?? enlargement. Bone windows reveal no calvarial abnormality. There is ?? mild mucoperiosteal thickening left maxillary sinus. There is a small ?? retention cyst right posterior ethmoid sinus. Rest of paranasal sinuses ?? are normal. There is mild deformity of left nasal bone likely old ?? injury. The scalp soft tissues and the visualized nasal and maxillary ?? soft tissues are normal. The mastoid sinuses are clear. ? CT/CT head/brain wo IV con ?? IMPRESSION: ?? No acute intracranial process. ? Chronic inflammatory changes left maxillary sinus. There is small ?? retention cyst right posterior ethmoid sinus.. ? Electronically signed by: ??Rasheed Jefferson MD ??03/24/2024 07:09 AM EST RP ? Dictated By: ?Rasheed Jefferson MD ? Signed By: ?<Electronically signed by Rasheed Jefferson MD in OV> ?03/24/24 0709 ? DD/ 1626 ? TD/TT: 03/23/24 1743 ? Hvac Engineering Technician: [employer] ? Procedure Note Donanneliese, Image - 03/24/[address] [address] [address] Scan Report Signed Patient: Henri Espino FMR#: [id number] [birth year] : 8Acct:[id number] Age/Sex: 64 / MADM Date: 03/23/24 Loc: HO.CT Attending Dr: Handy Elias MD Ordering Physician: Handy Elias MD Date of Service: 03/23/24 Procedure(s): CT head/brain wo IV con Accession Number(s): [id number] cc: aHndy Elias MD Report Number: [id number]: Total DLP = 853.00 mGy-cm EXAMINATION: CT HEAD WITHOUT CONTRAST CLINICAL INFORMATION: Incidental headache after fall in parking lot. COMPARISON: None available. TECHNIQUE: Contiguous axial imaging was performed from the skull base to vertex without intravenous administration of contrast. This CT examination was performed using dose optimization techniques as appropriate, variously including the following: *Automated exposure control *Adjustment of mA and/or kV according to patient size (this includes techniques or standardized protocols for targeted exams where dose is matched to indication/reason for exam; i.e. extremities or head) *Use of iterative reconstruction technique DLP: 853 mGy/cm. FINDINGS: There is no acute intra-axial, extra-axial bleed, masses or midline shift. There is no acute infarction in evolution. There is no edema. The spangler to white matter differentiation is maintained normal. The lateral ventricles are symmetrical in size and configuration with mild enlargement. Bone windows reveal no calvarial abnormality. There is mild mucoperiosteal thickening left maxillary sinus. There is a small retention cyst right posterior ethmoid sinus. Rest of paranasal sinuses are normal. There is mild deformity of left nasal bone likely old injury. The scalp soft tissues and the visualized nasal and maxillary soft tissues are normal. The mastoid sinuses are clear. CT/CT head/brain wo IV con IMPRESSION: No acute intracranial process. Chronic inflammatory changes left maxillary sinus. There is small retention cyst right posterior ethmoid sinus.. Electronically signed by: Rasheed Jefferson MD 03/24/2024 07:09 AM EST Dictated By: Rasheed Jefferson MD Signed By: <Electronically signed by Rasheed Jefferson MD in OV> 03/24/24 0709 DD/ 1626 TD/TT: 03/23/24 1743 Hvac Engineering Technician: [facility] Handy Elias MD IM CT PROCEDURES Final Res ult * (ABNORMAL) CBC auto differential (03/23/2024 4:24 PM EST) White Blood Count 9.8 4.8 - 10.8 X10*3/uL [facility] Red Blood Count 5.06 4.60 - 5.80 X10*6/uL [facility] Hemoglobin 15.9 14.0 - 18.0 g/dl [facility] Hematocrit 47.7 42.0 - 52.0 % [facility] Mean Corpuscular Volume 94.3 80.0 - 98.0 fL [facility] Mean Corpuscular Hemoglobin 31.4 27.0 - 33.0 pg [facility] Mean Corpuscular HGB Conc 33.3 31.0 - 36.0 g/dl [facility] Red Cell Distribution Width 14.0 11.0 - 16.0 % [facility] Platelet Count 293 160 - 400 X10*3/uL [facility] Mean Platelet Volume 9.9 9.4 - 12.4 fL [facility] Neutrophils Percent Auto 65.0 45 - 73 % [facility] Imm Gran Pct Auto 2.4(H) 0.0 - 0.4 % [facility] Lymphocytes Percent Auto 19.0(L) 20 - 40 % [facility] Monocytes Percent Auto 10.3 2 - 11 % [facility] Eosinophils Percent Auto 2.6 0 - 4 % [facility] Basophils Percent Auto 0.7 0 - 2 % [facility] NRBC Pct Auto 0.0 0.0 - 0.2 /100WBC [facility] Neutrophils Absolute Auto 6.4 2.0 - 8.3 x10*3/uL [facility] Imm Gran Abs Auto 0.23(H) 0.00 - 0.03 X10*3/uL [facility] Lymphocytes Absolute Auto 1.9 1.2 - 4.9 X10*3/uL [facility] Monocytes Absolute Auto 1.0 0.1 - 1.2 X10*3/uL [facility] Eosinophils Absolute Auto 0.3 0.0 - 0.4 X10*3/uL [facility] Basophils Absolute Auto 0.1 0.0 - 0.2 X10*3/uL [facility] NRBC Abs Auto 0.000 0.0 - 0.012 X10*3/uL [facility] Blood Venous blood specimen / Unknown 03/23/2024 4:24 PM EST 03/23/2024 4:24 PM EST Handy Elias MD LAB BLOOD ORDERABLES Final Result Performing Organization Address [facility] de Phone Number [facility] [address] [place] [phone] * Partial Thromboplastin Time, Activated (APTT) (03/23/2024 4:24 PM EST) Partial Thromboplastin Time 32.8 26.0 - 36.8 SEC [facility] Comment:For information rega rding the monitoring of direct thrombininhibitors, please refer to Pharmacy. Blood Venous blood specimen / Unknown 03/23/2024 4:24 PM EST 03/23/2024 4:24 PM EST us Handy Elias MD LAB BLOOD ORDERABLES Final Result Performing Organization Address [facility] de Phone Number [facility] [address] [place] [phone] * Prothrombin Time-INR (03/23/2024 4:24 PM EST) Prothrombin Time 11.0 10.9 - 12.4 SEC [facility] INTERNATIONAL NORM RATIO 0.9 0.9 - 1.1 [facility] Comment:INTERNATIONAL NORMAL IZED RATIO (INR) [...] 4:24 PM EST 03/23/2024 4:24 PM EST Handy Elias MD LAB BLOOD ORDERABLES Final Result Performing Organization Address [facility] Co de Phone Number [facility] [address] [place] [phone] * (ABNORMAL) Basic Metabolic Panel (03/23/2024 4:24 PM EST) Sodium 136 135 - 145 mmol/L [facility] Potassium 4.8 3.3 - 5.1 mmol/L [facility] Chloride 105 96 - 108 mmol/L [facility] Carbon Dioxide 23 22 - 29 mmol/L [facility] Anion Gap 13 12 - 20 [facility] Urea Nitrogen (BUN) 18(H) 9 - 16 mg/dL [facility] Creatinine, Serum 1.39 0.5 - 1.4 mg/dL [facility] Estimated Glomerular Filt Rate 51 [facility] Comment:Chronic Kidney Disea se: Estimated GFR < 60 mL/min/1.95e6Kbxaqi Kidney Disease: Estimated GFR < 15 mL/min/1.73m2 Glucose 92 60 - 115 mg/dL [facility] Calcium 9.4 8.4 - 10.2 mg/dL [facility] Blood Venous blood specimen / Unknown 03/23/2024 4:24 PM EST 03/23/2024 4:24 PM EST us Handy Elias MD LAB BLOOD ORDERABLES Final Result Performing Organization Address [facility] Co de Phone Number [facility] [address] [place] [phone] * XR Chest 2 Views (03/23/2024 3:44 PM EST) Anatomical Region Laterality Modality Chest Radiographic Ame ging 03/23/2024 3:44 PM EST Narrative 03/23/2024 5:03 PM EST ? [facility] ?[address] ?[place] [address] ?XRay Report ? Signed ? Patient: [place],Henri F ?MR#: [id number] ?? 79 ? : 1960 ?Acct:[id number] ? Age/Sex: 64 / M ?ADM Date: 03/23/24 ? Loc: HO.CT ? Attending Dr: Handy Elias MD ? Ordering Physician: Handy Elias MD ?? Date of Service: 03/23/24 ?? Procedure(s): XR chest 2V ?? Accession Number(s): [id number] ? cc: Handy Elias MD ? EXAMINATION: [...] DD/ 1544 ? TD/TT: 03/23/24 1605 ? Hvac Engineering Technician: [employer] ? Procedure Note Kiran, Bri - 03/23/[address] [address] XRay Report Signed Patient: Henri Espino FMR#: [id number] [birth year] : 8Acct:[id number] Age/Sex: 64 / MADM Date: 03/23/24 Loc: HO.CT Attending Dr: Handy Elias MD Ordering Physician: Handy Elias MD Date of Service: 03/23/24 Procedure(s): XR chest 2V Accession Number(s): [id number] cc: Handy Elias MD EXAMINATION: XR CHEST [...] Rasheed Jefferson MD 03/23/2024 05:00 PM EST RP Dictated By: Rasheed Jefferson MD Signed By: <Electronically signed by Rasheed Jefferson MD in OV> 03/23/24 1700 DD/ 1544 TD/TT: 03/23/24 1605 Hvac Engineering Technician: [facility] Handy Elias MD IMG XR PROCEDURES Final Res ult * POCT SAL-14 Urine Drug Screen (03/05/2024 3:06 PM EST) Oxycodone Screen, Urine Positive Urine Urine specimen obtained by clean catch procedure / Unknown 03/05/2024 3:06 PM EST Narrative Tessa Cox RN - 03/05/2024 3:06 PM EST Lot# [id number] Exp: 01-31-25 us Handy Elias MD POINT [...] Recently Relevant to Health Maintenance Insurance [place] [id number] [facility] MEDEX CARE Care Teams Garment Manufacturing Supervisor Relationship Specialty Start Date End Date Handy Elias MD [address] [place] [address] BIANKA Santana PCP - General Internal Medicine 11/17/12
--- OUTSIDE RECORDS SUMMARY | 2024-03-25 14:47 | XMS_ITS | Encounter Summary ---
Author Organization [employer] Address [address] [facility] 7 [place] [address] Care Team Providers Care Tie Presser Name Role Phone Handy Elias MD Primary Care Provider [phone] Reason for Visit * Reason Onset Date Comments Med Refill 09/18/2023 Encounter Details Date Type Department Care Team (Late st Contact Info) Description 09/18/2023 Telephone [facility] [address] [place] [address] Handy Elias MD [address] [place], [place] [phone] Med Refill Social History Tobacco Use Types [...] refill : Zolpidem To be sent to: [facility]/pharmacy #[id number] - BIANKA LEWIS - [address] [place] [address] [address] [place] [phone] documented in this encounter Plan of Treatment Upcoming Encounters Date Type Department Care Team (Late st Contact Info) Description 05/08/2024 2:00 PM EDT Office Visit [facility] [address] [place] [address] Handy Elias MD [address] [place] [address] 05/25/2024 3:00 PM EDT Telemedicine [facility] [address] [place] [address] Tessa Cox RN [address] [place] [address] documented as of this encounter Visit Diagnoses Not on filedocumented in this encounter Care Teams Tie Presser Relationship Specialty Start Date End Date Handy Elias MD [address] [place] [address] PCP - General Internal Medicine 11/17/12 documented as of this encounter
--- OUTSIDE RECORDS SUMMARY | 2024-03-25 14:47 | XMS_ITS | Encounter Summary ---
Author Organization [facility] [employer] Address [address] [place] [address] 7 [place] [address] Care Team Providers Care Information Services Consultant Name Role Phone Handy Elias MD Primary Care Provider [phone] Reason for Referral * Imaging (Routine) - Authorized Specialty Diagnoses / Procedures Referred By Maurice weaver Referred To Contact Radiology Diagnoses Abnormal LFTs Procedures US Abdomen Complete Handy Elias MD [address] [place] [address] Phone: tel: fax: [address] Phone: tel: fax: Referral ID Status Reason Start Date Expiration Date V isits Requested Visits Authorized [id number] Authorized 03/19/2024 03/19/2025 1 1 * Imaging (Urgent) - Closed Specialty Diagnoses / Procedures Referred By Contac t Referred To Contact Radiology Diagnoses Other headache syndrome Procedures CT Head w/o Contrast Handy Elias MD [address] [place] [address] Phone: tel: fax: [address] Phone: tel: fax: Referral ID Status Reason Start Date Expiration Date Visits Re quested Visits Authorized [id number] Closed 03/19/2024 03/19/2025 1 1 * Imaging (Routine) - Canceled Specialty Diagnoses / Procedures Referred By Maurice weaver Referred To Contact Radiology Diagnoses Abnormal LFTs Procedures US Abdomen Complete Handy Elias MD [address] [place] [address] Phone: tel: fax: [address] Phone: tel: fax: Referral ID Status Reason Start Date Expiration Date V isits Requested Visits Authorized [id number] Canceled 03/19/2024 03/19/2025 1 1 Reason for Visit * Reason Comments History of fall Encounter Details Date Type Department Care Team (Late st Contact Info) Description 03/19/2024 2:00 PM EST Office Visit [facility]S [address] [place] [address] Handy Elias MD [address] [place] [address] Abnormal LFTs (Primary Dx); Bruises easily; Fall, [...] BY INTRAMUSCULAR ROUTE ONCE A MONTH FOR [id number] INJECTIONS 12 each 1 cholecalciferol (Vitamin D-3) [...] [facility] MED & PEDS [address] [place] [address] Handy Elias MD [address] [place] [address] 05/25/2024 3:00 PM EDT Telemedicine [facility] [address] [place] [address] Tessa Cox, RN [address] [place] [address] Scheduled Orders Name Type Priority Associated Diagnoses Orde r Schedule US Abdomen Complete Imaging Routine Abnormal LFTs Expected: 03/19/2024, Expires: 03/19/2025 US Abdomen Complete Imaging Routine Abnormal LFTs Expected: 03/19/2024, Expires: 03/19/2025 documented as of this encounter Procedures Procedure Name Priority Date/Time Associated Diagnosis Comments CT HEAD WO CONTRAST Urgent 03/23/2024 4 :26 PM EST Other headache syndrome CBC WITH AUTO DIFFERENTIAL Routine 03/23/2024 4:24 PM EST Bruises easily APTT Routine 03/23/2024 4:24 PM EST Bruises easily PROTHROMBIN TIME-INR Routine 03/23/2024 4:24 PM EST Bruises easily BASIC METABOLIC PANEL Routine 03/23/2024 4:24 PM EST Bruises easily XR CHEST 2 VIEWS Routine 03/23/2024 3:44 PM EST SOB (shortness of breath) documented in this encounter Results * CT Head w/o Contrast (03/23/2024 4:26 PM EST) Anatomical Region Laterality Modality Head, Neck Computed Tomogra phy 03/23/2024 4:26 PM EST Narrative 03/24/2024 7:12 AM EST ? [facility] ?[address] ?[place] [address] ? CT Scan Report ? Signed ? Patient: Remington,Henri F ?MR#: [id number] ?? 79 ? : 1960 ?Acct:[id number] ? Age/Sex: 64 / M ?ADM Date: 01/27/25 ? Loc: HO.CT ? Attending Dr: Handy Elias MD ? Ordering Physician: Handy Elias MD ?? Date of Service: 03/23/24 ?? Procedure(s): CT head/brain wo IV con ?? Accession Number(s): [id number] ? cc: Handy Elias MD ? Report Number: ?? [id number]: Total DLP = ??853.00 mGy-cm ?? EXAMINATION: [...] 07:09 AM EST RP ? Dictated By: ?Li,Rasheed S MD ? Signed By: ?<Electronically signed by Rasheed S MD Li in OV> ?03/24/24 0709 ? DD/ ? TD/TT: 03/23/24 1743 ? Thrasher Feeder: MSM ? Procedure Note Donotuseinterpreter, Image - 03/24/[address] [address] [address] Scan Report Signed Patient: Henri Espino FMR#: [id number] [birth year] : 8Acct:[id number] Age/Sex: 64 / MADM Date: 03/23/24 Loc: HO.CT Attending Dr: Handy Elias MD Ordering Physician: Handy Elias MD Date of Service: 03/23/24 Procedure(s): CT head/brain wo IV con Accession Number(s): [id number] cc: Handy Elias MD Report Number: [id number]: Total DLP = 853.00 mGy-cm EXAMINATION: CT [...] Rasheed Jefferson MD 03/24/2024 07:09 AM EST RP Dictated By: Rasheed Jefferson MD Signed By: <Electronically signed by Rasheed Jefferson MD in OV> 03/24/24 0709 DD/ 1626 TD/TT: 03/23/24 1743 Thrasher Feeder: ANTHONY us Handy Elias MD IMG CT PROCEDURES Final Res ult * Partial Thromboplastin Time, Activated (APTT) (03/23/2024 4:24 PM EST) Partial Thromboplastin Time 32.8 26.0 - 36.8 [facility] Comment:For information rega rding the monitoring of direct thrombininhibitors, please refer to Pharmacy. Blood Venous blood specimen / Unknown 03/23/2024 4:24 PM EST 03/23/2024 4:24 PM EST us Handy Elias MD LAB BLOOD ORDERABLES Final Result [facility] [address] [place] [phone] * Prothrombin Time-INR (03/23/2024 4:24 PM EST) Prothrombin Time 11.0 10.9 - 12.4 [facility] INTERNATIONAL NORM RATIO 0.9 0.9 - 1.1 [facility] Comment:INTERNATIONAL NORMAL IZED RATIO (INR) REFERENCE [...] BLOOD ORDERABLES Final Result Performing Organization Address [facility] [address]/[facility] Co de Phone Number [facility] [address] [place] [phone] * (ABNORMAL) Basic Metabolic Panel (03/23/2024 4:24 PM EST) Sodium 136 135 - 145 mmol/L [facility] Potassium 4.8 3.3 - 5.1 mmol/L [facility] Chloride 105 96 - 108 mmol/L [facility] Carbon Dioxide 23 22 - 29 mmol/L [facility] Anion Gap 13 12 - 20 [facility] Urea Nitrogen (BUN) 18(H) 9 - 16 mg/dL [facility] Creatinine, Serum 1.39 0.5 - 1.4 mg/dL [facility] Estimated Glomerular Filt Rate 51 [facility] Comment:Chronic Kidney Disea se: Estimated GFR < 60 mL/min/1.66u5Wvpldp Kidney Disease: Estimated GFR < 15 mL/min/1.73m2 Glucose 92 60 - 115 mg/dL [facility] Calcium 9.4 8.4 - 10.2 mg/dL [facility] Blood Venous blood specimen / Unknown 03/23/2024 4:24 PM EST 03/23/2024 4:24 PM EST us Handy Elias MD LAB BLOOD ORDERABLES Final Result Performing Organization Address [facility] [address]/[facility] Co de Phone Number [facility] [address] [place] [phone] * (ABNORMAL) CBC auto differential (03/23/2024 4:24 PM EST) White Blood Count 9.8 4.8 - 10.8 X10*3/uL [facility] Red Blood Count 5.06 4.60 - 5.80 X10*6/uL [facility] Hemoglobin 15.9 14.0 - 18.0 g/dl [facility] Hematocrit 47.7 42.0 - 52.0 % [facility] Mean Corpuscular Volume 94.3 80.0 - 98.0 fL [facility] Mean Corpuscular Hemoglobin 31.4 27.0 - 33.0 pg [facility] Mean Corpuscular HGB Conc 33.3 31.0 - 36.0 g/dl [facility] Red Cell Distribution Width 14.0 11.0 - 16.0 % [facility] Platelet Count 293 160 - 400 X10*3/uL [facility] Mean Platelet Volume 9.9 9.4 - 12.4 fL [facility] Neutrophils Percent Auto 65.0 45 - 73 % [facility] Imm Gran Pct Auto 2.4(H) 0.0 - 0.4 % [facility] Lymphocytes Percent Auto 19.0(L) 20 - 40 % [facility] Monocytes Percent Auto 10.3 2 - 11 % [facility] Eosinophils Percent Auto 2.6 0 - 4 % [facility] Basophils Percent Auto 0.7 0 - 2 % [facility] NRBC Pct Auto 0.0 0.0 - 0.2 /100WBC [facility] Neutrophils Absolute Auto 6.4 2.0 - 8.3 x10*3/uL [facility] Imm Gran Abs Auto 0.23(H) 0.00 - 0.03 X10*3/uL [facility] Lymphocytes Absolute Auto 1.9 1.2 - 4.9 X10*3/uL [facility] Monocytes Absolute Auto 1.0 0.1 - 1.2 X10*3/uL [facility] Eosinophils Absolute Auto 0.3 0.0 - 0.4 X10*3/uL [facility] Basophils Absolute Auto 0.1 0.0 - 0.2 X10*3/uL [facility] NRBC Abs Auto 0.000 0.0 - 0.012 X10*3/uL [facility] Blood Venous blood specimen / Unknown 03/23/2024 4:24 PM EST 03/23/2024 4:24 PM EST us Handy Elias MD LAB BLOOD ORDERABLES Final Result [facility] [address] [place] [phone] * XR Chest 2 Views (03/23/2024 3:44 PM EST) Anatomical Region Laterality Modality Chest Radiographic Ame ging 03/23/2024 3:44 PM EST Narrative 03/23/2024 5:03 PM EST ? [facility] ?[address] ?[place] [address] ?XRay Report ? Signed ? Patient: SrinivasHenri silva ?MR#: [id number] ?? 79 ? : 1960 ?Acct:[id number] ? Age/Sex: 64 / M ?ADM Date: 03/23/24 ? Loc: HO.CT ? Attending Dr: Handy Elias MD ? Ordering Physician: Handy Elias MD ?? Date of Service: 03/23/24 ?? Procedure(s): XR chest 2V ?? Accession Number(s): [id number] ? cc: Handy Elias MD ? EXAMINATION: [...] EST RP ? Dictated By: ?Li,Rasheed S ? Signed By: ?<Electronically signed by Rasheed Jefferson MD in OV> ?03/23/24 1700 ? DD/ 1544 ? TD/TT: 03/23/24 1605 ? Thrasher Feeder: ANTHONY ? Procedure Note Donotuseinterpreter, Image - 03/23/[address] [address] XRay Report Signed Patient: Henri Espino FMR#: [id number] 79 : 1960cct:[id number] Age/Sex: 64 / MADM Date: 03/23/24 Loc: HO.CT Attending Dr: Handy Elias MD Ordering Physician: Handy Elias MD Date of Service: 03/23/24 Procedure(s): XR chest 2V Accession Number(s): [id number] cc: Handy Elias MD EXAMINATION: XR CHEST [...] by: Rasheed Jefferson MD 03/23/2024 05:00 PM [facility] Dictated By: Rasheed Jefferson MD Signed By: <Electronically signed by Rasheed Jefferson MD in OV> 03/23/24 1700 DD/ 1544 TD/TT: 03/23/24 1605 Thrasher Feeder: ANTHONY us Handy Elias MD IMG XR PROCEDURES Final Res ult documented in this encounter Visit Diagnoses Diagnosis Abnormal LFTs- Primary Bruises easily Other symptoms involving skin and integumentary tissues Fall, initial encounter Other headache syndrome SOB (shortness of breath) Shortness of breath documented in this encounter Care Teams Information Services Consultant Relationship Specialty Start Date End Date Handy Elias MD [address] [place] [phone] PCP - General Internal Medicine 11/17/12 documented as of this encounter
--- OUTSIDE RECORDS SUMMARY | 2024-03-25 14:47 | XMS_ITS | Encounter Summary ---
Author Organization [employer] Address [address] 7t [place] [address] Care Team Providers Care Shipping Point Inspector Name Role Phone Handy Elias MD Primary Care Provider [phone] Encounter Details Date Type Department Care Team [...] 2:00 PM EDT Office Visit [facility] MED & PEDS [address] [place] [address] Handy Elias MD [address] [place] [address] 05/25/2024 3:00 PM EDT Telemedicine [facility] MED & PEDS [address] [place] [address] Tessa Cox RN [address] [place] [address] documented as of this encounter Visit Diagnoses Not on filedocumented in this encounter Care Teams Shipping Point Inspector Relationship Specialty Start Date End Date Handy Elias MD [address] [place] [address] PCP - General Internal Medicine 11/17/12 documented as of this encounter
--- OUTSIDE RECORDS SUMMARY | 2024-03-25 14:47 | XMS_ITS | Encounter Summary ---
Author Organization [employer] Address [address] [facility] 7 [place] [address] Care Team Providers Care Long Distance Billing Operator Name Role Phone Handy Elias MD Primary Care Provider [phone] Reason for Visit * Reason Onset Date Comments Imaging 03/20/2024 Encounter Details Date Type Department Care Team ([facility] st Contact Info) Description 03/20/2024 Telephone [facility] PED[facility] [address] [place], [place] [phone] Handy Elias MD [address] [place], [place] [phone] Imaging Social History Tobacco Use Types Packs/Day [...] week and is planning on going to [facility] for XR.Informed I would send request [...] Office Visit [facility] MED & PEDS [address] [place] [address] Handy Elias MD [address] [place] [address] 05/25/2024 3:00 PM EDT Telemedicine [facility] [address] [place] [address] Tessa Cox, MARITA [address] [place], [place] [phone] documented as of this encounter Visit Diagnoses Not on filedocumented in this encounter Care Teams Long Distance Billing Operator Relationship Specialty Start Date End Date Handy Elias MD [address] [place] [address] PCP - General Internal Medicine 11/17/12 documented as of this encounter
--- OUTSIDE RECORDS SUMMARY | 2024-03-25 14:47 | XMS_ITS | Encounter Summary ---
Author Organization [employer] Address [address] [facility] 7 [place] [address] Care Team Providers Care Finishing Technician Name Role Phone Handy Elias MD Primary Care Provider [phone] Reason for Visit * Reason Onset Date Comments Med Refill 09/23/2023 Encounter Details Date Type Department Care Team (Late st Contact Info) Description 09/23/2023 Telephone [facility] MEDICINE [address] [place] [address] Handy Elias MD [address] [place], [place] [phone] Med Refill Social History Tobacco Use Types [...] immediate release tablet To be sent to: [facility]/pharmacy #[id number] - [place], [place] - [address] [facility] [address] [place] [address] documented in this encounter Plan of Treatment Upcoming Encounters Date Type Department Care Team (Late st Contact Info) Description 05/08/2024 2:00 PM EDT Office Visit [facility] MED & PEDS [address] [place] [address] Handy Elias MD [address] [place] [address] 05/25/2024 3:00 PM EDT Telemedicine [facility] MED & PEDS [address] [place] [address] Tessa Cox RN [address] [place] [address] documented as of this encounter Visit Diagnoses Not on filedocumented in this encounter Care Teams Finishing Technician Relationship Specialty Start Date End Date Handy Elias MD [address] [place] [address] PCP - General Internal Medicine 11/17/12 documented as of this encounter
--- OUTSIDE RECORDS SUMMARY | 2024-03-25 14:47 | XMS_ITS | Encounter Summary ---
Author Organization [employer] [facility] Address [address] [place] [address] Care Team Providers Care Fly Setter Name Role Phone Handy Elias MD Primary Care Provider [phone] Encounter Details Date Type Department Care Team (Late st Contact Info) Description 07/16/2022 Orders Only [facility] MED & PEDS [address] [place] [address] Nataliia Santos LPN Social History Tobacco Use [...] Description 05/08/2024 2:00 PM EDT Office Visit [facility] MED & PEDS [address] [place] [address] Handy Elias MD [address] [place] [address] 05/25/2024 3:00 PM EDT Telemedicine [facility] MED & PEDS [address] [place] [address] Tessa Cox, MARITA [address] [place], [place] [phone] documented as of this encounter Visit Diagnoses Not on filedocumented in this encounter Care Teams Fly Setter Relationship Specialty Start Date End Date Handy Elias MD [address] [place] [address] PCP - General Internal Medicine 11/17/12 documented as of this encounter
--- OUTSIDE RECORDS SUMMARY | 2024-03-25 14:47 | XMS_ITS | Encounter Summary ---
Author Organization [employer] Address [address] [place] [address] 7 [place] [address] Care Team Providers Care Rotary Furnace Tender Name Role Phone Handy Elias MD Primary Care Provider [phone] Encounter Details Date Type Department Care Team (Late st Contact Info) Description 2022 Abstract [facility] MEDICINE [address] [place], [place] [phone] ProviderMelanie MD Social History Tobacco Use Types [...] Description 05/08/2024 2:00 PM EDT Office Visit [facility] MED & PEDS [address] [place], [place] [phone] Handy Elias MD [address] [place], [place] [phone] 05/25/2024 3:00 PM EDT Telemedicine [facility] MED & PEDS [address] [place] [address] Tessa Cox RN [address] [place] [address] documented as of this encounter Visit Diagnoses Not on filedocumented in this encounter Care Teams Rotary Furnace Tender Relationship Specialty Start Date End Date Handy Elias MD [address] [place] [address] PCP - General Internal Medicine 11/17/12 documented as of this encounter
--- OUTSIDE RECORDS SUMMARY | 2024-03-25 14:47 | XMS_ITS | Encounter Summary ---
Author Organization [employer] Address [address] [facility] 7 [place] [address] Care Team Providers Care Executive Chairman Of The Board Name Role Phone Handy Elias MD Primary Care Provider [phone] Reason for Visit * Reason Onset Date Comments Medication Question 08/01/2022 Encounter Details Date Type Department Care Team ([facility] st Contact Info) Description 08/01/2022 Telephone [facility] MEDICINE [address] [place] [address] Handy Elisa MD [address] [place], [place] [phone] Medication Question Social History Tobacco Use Types [...] Pt is also requestinga call back from BLOW MOLDING MACHINE OPERATOR RN. Please contact at [phone] documented in this encounter Plan of Treatment Upcoming Encounters Date Type Department Care Team (Late st Contact Info) Description 05/08/2024 2:00 PM EDT Office Visit [facility] MED & PEDS [address] [place] [address] Handy Elias MD [address] [place] [address] 05/25/2024 3:00 PM EDT Telemedicine [facility] MED & PEDS [address] [place] [address] Tessa Cox, MARITA [address] [place] [address] documented as of this encounter Visit Diagnoses Not on filedocumented in this encounter Care Teams Executive Chairman Of The Board Relationship Specialty Start Date End Date Handy Elias MD [address] [place] [address] PCP - General Internal Medicine 11/17/12 documented as of this encounter
--- OUTSIDE RECORDS SUMMARY | 2024-03-25 14:47 | XMS_ITS | Encounter Summary ---
Author Organization [employer] Address [address] [place] [address] 7 [place] [address] Care Team Providers Care Digital Account Director Name Role Phone Handy Elias MD Primary Care Provider Encounter Details Date Type Department Care Team (Late Contact Info) Description 08/29/2022 Orders Only [facility] MED & PEDS [address] [place], [place] [phone] Handy Elias MD [address] [place] [address] Social History Tobacco Use Types Packs/Day Years [...] Description 05/08/2024 2:00 PM EDT Office Visit [facility] MED [facility] PEDS [address] [place] [address] Handy Elias MD [address] [place], [place] [phone] 05/25/2024 3:00 PM EDT Telemedicine [facility] MED & PEDS [address] [place] [address] Tessa Cox RN [address] [place] [address] documented as of this encounter Visit Diagnoses Not on filedocumented in this encounter Care Teams Digital Account Director Relationship Specialty Start Date End Date Handy Elias MD [address] [place] [address] PCP - General Internal Medicine 11/17/12 documented as of this encounter
--- OUTSIDE RECORDS SUMMARY | 2024-03-25 14:47 | XMS_ITS | Encounter Summary ---
Author Organization [employer] Address [address] [facility] 7 [place] [address] Care Team Providers Care Criminal Justice Program Director Name Role Phone Handy Elias MD Primary Care Provider [phone] Reason for Visit * Reason Onset Date Comments Med Refill 01/14/2024 Encounter Details Date Type Department Care Team (Late st Contact Info) Description 01/14/[address] [facility] MEDICINE [address] [place] [address] Handy Elias MD [address] [place], [place] [phone] Med Refill Social History Tobacco Use Types [...] immediate release tablet To be sent to: [facility]/pharmacy #[id number] - [place] - [address] [facility] [address] [place] [address] documented in this encounter Plan of Treatment Upcoming Encounters Date Type Department Care Team (Late st Contact Info) Description 05/08/2024 2:00 PM EDT Office Visit [facility] MED & PEDS [address] [place] [address] Handy Elias MD [address] [place] [address] 05/25/2024 3:00 PM EDT Telemedicine [facility] MED & PEDS [address] [place] [address] Tessa Cox RN [address] [place] [address] documented as of this encounter Visit Diagnoses Not on filedocumented in this encounter Care Teams Criminal Justice Program Director Relationship Specialty Start Date End Date Handy Elias MD [address] [place] [address] PCP - General Internal Medicine 11/17/12 documented as of this encounter
--- OUTSIDE RECORDS SUMMARY | 2024-03-25 14:47 | XMS_ITS | Encounter Summary ---
Author Organization [email or web address] Address [address] [facility] 7 [place] [address] Care Team Providers Care Cnc Operator Machinist Name Role Phone Handy Elias MD Primary Care Provider [phone] Reason for Visit * Reason Onset Date Comments Med Refill 12/16/2023 Encounter Details Date Type Department Care Team (Late st Contact Info) Description 12/16/2023 Telephone [facility] [address] [place] [address] Handy Elias MD [address] [place], [place] [phone] Med Refill Social History Tobacco Use Types [...] 05/08/2024 2:00 PM EDT Office Visit [facility] MED & PEDS [address] [place] [address] Handy Elias MD [address] [place] [address] 05/25/2024 3:00 PM EDT Telemedicine [facility] MED & PEDS [address] [place] [address] Tessa Cox, MARITA [address] [place] [address] documented as of this encounter Visit Diagnoses Not on filedocumented in this encounter Care Teams Cnc Operator Machinist Relationship Specialty Start Date End Date Handy Elias MD [address] [place] [address] PCP - General Internal Medicine 11/17/12 documented as of this encounter
--- OUTSIDE RECORDS SUMMARY | 2024-03-25 14:47 | XMS_ITS | Encounter Summary ---
Author Organization [employer] Address [address] [place] [address] 7 [place] [address] Care Team Providers Care Value Engineer Name Role Phone Handy Elias MD Primary Care Provider +1- [phone] Encounter Details Date Type Department Care Team (Late Contact Info) Description 02/02/2022 Orders Only [facility] MEDICINE 230 [place], [place] [phone] Handy Elias MD 505 [place], [place] [phone] Cold intolerance of hand (Primary Dx); Primary [...] Description 05/08/2024 2:00 PM EDT Office Visit [facility] CHC MED & PEDS 505 [place], [place] [phone] Handy Elias MD 505 [place], [place] [phone] 05/25/2024 3:00 PM EDT Telemedicine [facility] MED & PEDS 505 [place] [address] Tessa Cox, MARITA 505 [place] [address] documented as of this encounter Procedures Procedure Name Priority Date/Time Associated Diagnosis Comments TSH W/REFLEX TO FT4 Routine 03/01/2022 1 1:16 AM EST Cold intolerance of hand documented in this encounter Results * TSH W/Reflex to FT4 (03/01/2022 11:16 AM EST) TSH w/Reflex to FT4 2.35 0.40 - 4.50 mIU/L [facility] [place] [facility] 03/01/2022 11:1 6 AM EST 03/01/2022 11:16 AM EST Handy Elias MD LAB BLOOD ORDERABLES Final Result [facility] [address] [facility], [facility], [place] [address] [employer] [place] [facility] [address] [facility], (N[address]2) [place] [address] documented in this encounter Visit Diagnoses Diagnosis 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
--- OUTSIDE RECORDS SUMMARY | 2024-03-25 14:47 | XMS_ITS | Encounter Summary ---
Author Organization [employer] Address 75 [facility] 7 [place] [address] Care Team Providers Care Sole Layer Hand Name Role Phone Handy Elias MD Primary Care Provider [phone] Reason for Visit * Reason Onset Date Comments call back requested 10/18/2023 Encounter Details Date Type Department Care Team ([facility] st Contact Info) Description 10/18/2023 Telephone [facility] MEDICINE 230 [place] [address] Handy Elias MD 505 [place], [place] [phone] call back requested Social History Tobacco Use [...] spouse states just missed a call from DIE CUTTER OPERATOR nurse Tessa . documented in this encounter Plan of Treatment Upcoming Encounters Date Type Department Care Team (Late st Contact Info) Description 05/08/2024 2:00 PM EDT Office Visit [facility] MED & PEDS 505 [place] [address] Handy Elias MD 505 [place] [address] 05/25/2024 3:00 PM EDT Telemedicine [facility] MED & PEDS 505 [place] [address] Tessa Cox RN 505 [place] [address] documented as of this encounter Visit Diagnoses Not on filedocumented in this encounter Care Teams Sole Layer Hand Relationship Specialty Start Date End Date Handy Elias MD 505 [place] [address] PCP - General Internal Medicine 11/17/12 documented as of this encounter
--- OUTSIDE RECORDS SUMMARY | 2024-03-25 14:47 | XMS_ITS | Encounter Summary ---
Author Organization [employer] Address [address] [place] [address] 7 [place] [address] Care Team Providers Care Recreation Facility Attendant Name Role Phone Handy Elias MD Primary Care Provider [phone]- [phone] Encounter Details Date Type Department Care Team (Late Contact Info) Description 10/10/2022 Orders Only [facility] CHC MED & PEDS [address] [place], [place] [phone] Handy Elias MD 505 [place], [place] [phone] Social History Tobacco Use Types Packs/Day Years [...] Description 05/08/2024 2:00 PM EDT Office Visit [facility] CHC MED & PEDS [address] [place], [place] [phone] Handy Elias MD 505 [place] [address] 05/25/2024 3:00 PM EDT Telemedicine [facility] MED & PEDS [address] [place], [place] [phone] Tessa Cox, MARITA 505 [place] [address] documented as of this encounter Visit Diagnoses Not on filedocumented in this encounter Care Teams Recreation Facility Attendant Relationship Specialty Start Date End Date Handy Elias MD 505 [place] [address] PCP - General Internal Medicine 11/17/12 documented as of this encounter
--- OUTSIDE RECORDS SUMMARY | 2024-03-25 14:47 | XMS_ITS | Encounter Summary ---
Author Organization [employer] Address [address] [place] [address] Care Team Providers Care Hydrostatic Tester Name Role Phone Handy Elias MD Primary Care Provider +1- [phone] Reason for Visit * Reason Onset Date Comments Call Back Request 05/14/2023 Encounter Details Date Type Department Care Team (Late st Contact Info) Description 05/14/2023 Telephone [facility] MEDICINE 230 [place] [address] Handy Elias MD 505 [place], [place] [phone] Call Back Request Social History Tobacco Use [...] 05/08/2024 2:00 PM EDT Office Visit [facility] MED & PEDS 505 [place] [address] Handy Elias MD 505 [place] [address] 05/25/2024 3:00 PM EDT Telemedicine [facility] MED & PEDS 505 [place] [address] Tessa Cox RN 505 [place] [address] documented as of this encounter Visit Diagnoses Not on filedocumented in this encounter Care Teams Hydrostatic Tester Relationship Specialty Start Date End Date Handy Elias MD 505 [place] [address] PCP - General Internal Medicine 11/17/12 documented as of this encounter
--- OUTSIDE RECORDS SUMMARY | 2024-03-25 14:47 | XMS_ITS | Encounter Summary ---
Author Organization [employer] Address [address] [place] [address] 7 [place] [address] Care Team Providers Care Ultrasound Technologist Sonographer Name Role Phone Handy Elias MD Primary Care Provider +1- [phone] Encounter Details Date Type Department Care Team (Late st Contact Info) Description 05/14/2023 Orders Only [facility] MED & PEDS 505 [place] [address] Handy Elias MD 505 [place] [address] Mood disorder (CMS/HCC) (Primary Dx) Social History [...] 2:00 PM EDT Office Visit [facility] MED & PEDS 505 [place], [place] [phone] Handy Elias MD 505 [place] [address] 05/25/2024 3:00 PM EDT Telemedicine [facility] MED & PEDS 505 [place] [address] Tessa Cox RN 505 [place] [address] documented as of this encounter Visit Diagnoses Diagnosis Mood disorder (CMS/HCC)- Primary Unspecified episodic mood disorder documented in this encounter Care Teams Ultrasound Technologist Sonographer Relationship Specialty Start Date End Date Handy Elias MD 505 [place] [address] PCP - General Internal Medicine 11/17/12 documented as of this encounter
--- OUTSIDE RECORDS SUMMARY | 2024-03-25 14:47 | XMS_ITS | Clinical Summary ---
Author Organization [facility] Address [address] [place] [address] Phone Care Team Providers Care Manager Call Center Name Role Phone Handy Elias MD Primary Care Provider +1- [phone] Allergies Active Allergy Reactions Criticality Noted Date [...] 11/28/2019, 11/18/2017, Additional history exists [place] Care Teams Manager Call Center Relationship Specialty Start Date End Date Handy Elias MD PCP - General Internal Medicine 10/19/20
--- OUTSIDE RECORDS SUMMARY | 2024-03-25 14:47 | XMS_ITS | Encounter Summary ---
Author Organization [employer] Address 75 [facility] 7 [place] [address] Care Team Providers Care Prepress Supervisor Name Role Phone Handy Elias MD Primary Care Provider [phone] Reason for Visit * Reason Onset Date Comments Med Refill 06/12/2022 Encounter Details Date Type Department Care Team (Late st Contact Info) Description 06/12/2022 Telephone [facility] MEDICINE 230 [place] [address] Handy Elias MD 505 [place], [place] [phone] Med Refill Social History Tobacco Use Types [...] [facility] MED & PEDS 505 [place] [address] Handy Elias MD 505 [place] [address] 05/25/2024 3:00 PM EDT Telemedicine [facility] MED & PEDS 505 [place] [address] Tessa Cox RN 505 [place] [address] documented as of this encounter Visit Diagnoses Not on filedocumented in this encounter Care Teams Prepress Supervisor Relationship Specialty Start Date End Date Handy Elias MD 505 [place] [address] PCP - General Internal Medicine 11/17/12 documented as of this encounter
--- OUTSIDE RECORDS SUMMARY | 2024-03-25 14:47 | XMS_ITS | Encounter Summary ---
Author Organization [employer] Address 75 [facility] 7 [place] [address] Care Team Providers Care Amphibious Operations Officer Name Role Phone Handy Elias MD Primary Care Provider [phone] Encounter Details Date Type Department Care Team (Late st Contact Info) Description 11/15/2023 Orders Only [facility] CHC MED & PEDS 505 [place], [place] [phone] Handy Elias MD 505 [place], [place] [phone] Social History Tobacco Use Types Packs/Day Years [...] Description 05/08/2024 2:00 PM EDT Office Visit [facility] MED & PEDS 505 [place] [address] Handy Elias MD 505 [place] [address] 05/25/2024 3:00 PM EDT Telemedicine [facility] MED & PEDS 505 [place] [address] Tessa Cox, MARITA 505 [place] [address] documented as of this encounter Visit Diagnoses Not on filedocumented in this encounter Care Teams Amphibious Operations Officer Relationship Specialty Start Date End Date Handy Elias MD 505 [place] [address] PCP - General Internal Medicine 11/17/12 documented as of this encounter
--- OUTSIDE RECORDS SUMMARY | 2024-03-25 14:48 | XMS_ITS | Encounter Summary ---
Author Organization [employer] Address [address] [place] [address] [place] [address] Care Team Providers Care Air Bag Buffer Name Role Phone Handy Elias MD Primary Care Provider +1- [phone] Reason for Visit * Reason Onset Date Comments Med Refill 02/13/2023 Encounter Details Date Type Department Care Team (Late st Contact Info) Description 02/13/2023 Telephone [facility] MEDICINE 230 [place] [address] Handy Elias MD 505 [place], [place] [phone] Med Refill Social History Tobacco Use Types [...] oxyCODONE (Roxicodone) 5 MG immediate release tablet [facility]/pharmacy #[id number] - [place], [place] - [address] [place] [address] [address]REET [address] [facility] [address] documented in this encounter Plan of Treatment Upcoming Encounters Date Type Department Care Team (Late st Contact Info) Description 05/08/2024 2:00 PM EDT Office Visit [facility] MED & PEDS 505 [place] [address] Handy Elias MD 505 [place] [address] 05/25/2024 3:00 PM EDT Telemedicine [facility] MED & PEDS 505 [place] [address] Tessa Cox, MARITA 505 [place] [address] documented as of this encounter Visit Diagnoses Not on filedocumented in this encounter Care Teams Air Bag Buffer Relationship Specialty Start Date End Date Handy Elias MD 505 [place] [address] PCP - General Internal Medicine 11/17/12 documented as of this encounter
--- OUTSIDE RECORDS SUMMARY | 2024-03-25 14:48 | XMS_ITS | Continuity of Care Document ---
Author Organization [facility] Address [address] [place] [address] Phone Care Team Providers Care Portable Grinding Machine Operator Name Role Phone Adria LACKEY, [...] (unknown strength) Not Available - Active VITAMIN V52-LYYSS ACID (unknown strength) Not Available - Active [...] E&M Established 15 Mins [facility], [address] [place] [address] Dr Arshad [address] [address], [id number], [place] tel:[phone] [facility] - [facility] Cramp and spasmRestless legs syndromeEssent ial (primary) hypertensionPa in in left lower legPain in left legLocalized edema 4 Adria LACKEY, RVT, LEÓN Torres. [address] [place] [address], [place], [place], [id number] , [place]. tel:[phone] Referring Provider: Handy Mckeon, [address] [place] [address], [address]. tel:[phone] [facility], [address] [place] [address] Dr Arshad [address] [address], [place], [id number], [place] tel:[phone] [facility] - [facility] Encounter for follow-up examination after completed treatment for conditions other than malignant neVaricose veins of right lower extremity with pain 3 Asim LACKEY FACS RVT LEÓN [place]. [address] [place] [address], [place], [address], [place]. tel:[phone] Referring Provider: Handy Mckeon, [address], [address]. tel:[phone] [facility], [address] [place] [address] Dr Arshad [address], [place], [id number], [place] tel:[phone] [facility] - [place] [facility] [place] Varicose veins of right lower extremity with other complications Jan-0 3 Doreen De Paz . [address] [facility], [place] [address], [place], [place], [id number] , [place]. tel:[phone] Referring Provider: Handy Mckeon, [address], [address]. tel:[phone] [facility], [address] [place] [address] Dr Arshad [address] [address], [id number], [place] tel:[phone] CV[facility] - [place] Varicose veins of right lower extremity with other complications 3 Asim LACKEY FACS Ralf [place]. [address] [place] [address], [place], [address], [place]. [phone] Referring Provider: Handy Mckeon, [address] [place] [address], [address]. tel:[phone] Office/Outpt E&M Established 25 Mins [facility], [address] [place] [address] Dr Arshad [address] [address], [id number], [place] tel:[phone] CVR - [place] [facility] [place] Chronic venous hypertension (idiopathic) with other complications of bilateral lower extremity Nov- 3 Asim LACKEY FACS Ralf [place]. [address] [place] [address], [place], [address], [place]. tel:[phone] Referring Provider: Handy Mckeon, [address], [address]. tel:[phone] Office/Outpt E&M Established 10 Mins - [facility], [address] [place] [address] Dr Arshad [address] [address], [id number], [place] tel:[phone] CVR - [place] [facility] [place] Venous insufficiency (chronic) (peripheral) Apr-2 6-202 3 Asim LACKEY FACS T [facility]. Count includes the [facility], [place] [address], [place], [address], [place]. tel:[phone] Referring Provider: Handy Mckeon, [address] [place] [address], [address]. tel:[phone] Office/Outpt E&M Established 15 Mins [facility], [address] [place] [address] [address], [place], [id number], [place] [phone] CVR - [place] Venous insufficiency (chronic) (peripheral) 3 Asim LACKEY FACS [facility]. [address] [place] [address], [place], [address], [place]. [phone] Referring Provider: Handy Mckeon, [address] [place] [address], [address]. tel:[phone] [facility], [address] [place] [address] Dr Arshad [address], [place], [id number], [place] tel:[phone] [facility] - [place] Venous insufficiency (chronic) (peripheral) 3 Asim LACKEY [facility]. [address] [place] [address], [place] [address], [place], [address], [place]. [phone] Referring Provider: Blanka Dailey MD FACS [facility], [address] [place] [address], [place], [address]. tel:[phone] Office/Oupt E&M New Pt 30 Mins [facility], [address] [place] [address] Dr Arshad [address] [address], [id number], [place] tel:[phone] CVR - [place] Venous insufficiency (chronic) (peripheral)Lo calized edemaRestless legs syndromeEssent ial (primary) hypertensionPr uritus, unspecifiedFla il joint, unspecified jointPain in right legPain in left legPain in right lower legPain in left lower legCramp and spasm 3 Asim LACKEY FACS RVT RPTEREZA [place]. [address] [facility], [address], [place], [address], [place]. tel:[phone] Referring Provider: Blanka Dailey MD FACS RVT [facility], [address] [facility] [address], [facility] [place], [address]. tel:[phone] Family History Family Member Type Diagnosis Age At Onset No Information Payers Payer name Insurance type Covered democrat ID Authoriza tion(s) Medicare BIANKA MB [id number] BCBS BIANKA [id number] Social History Type Description Quantity Date Captured [...]
--- OUTSIDE RECORDS SUMMARY | 2024-03-25 14:48 | XMS_ITS | Encounter Summary ---
Author Organization [employer] Address 75 [facility] 7 [place] [address] Care Team Providers Care Bus Analyst Name Role Phone Handy Allen MD Primary Care Provider [phone] Reason for Visit * Reason Onset Date Comments Results 03/24/2024 Encounter Details Date Type Department Care Team ([facility] st Contact Info) Description 03/24/2024 Telephone [facility] MEDICINE 230 [place] [address] Handy Allen MD 505 [place], [place] [phone] Results Social History Tobacco Use Types Packs/Day Years [...] encounter Miscellaneous Notes * Telephone Encounter - Janeen Hwang RN - 03/25/2024 1:55 PM EST Pt arrived with his requesting results of testing. Pt informed per Dr allen no intracranialbleed, no concerns with CXR. Pt states he was concerned he might have a collapsed lung or a punctured lung, pt assured testing showed neither of these. Pt currently on phone with ENT making appt. * Telephone Encounter - Rahat Lemos - 03/24/2024 2:46 PM EST TC from pt requesting call back regarding Results. Type of results: Xray Chest and Lungs, Cat scan of the Brain. Blood test Date when done: 03/23 Facility: [facility] [place] Pt states Prefers to Talk to PCP Contact pt at [phone] documented in this encounter Plan of Treatment Upcoming Encounters Date Type Department Care Team ([facility] st Contact Info) Description 05/08/2024 2:00 PM EDT Office Visit [facility] MED & PEDS 505 [place] [address] Handy Allen MD 505 [place] [address] 05/25/2024 3:00 PM EDT Telemedicine [facility] MED & PEDS 505 [place] [address] Tessa Cox RN 505 [place] [address] documented as of this encounter Visit Diagnoses Not on filedocumented in this encounter Care Teams Bus Analyst Relationship Specialty Start Date End Date Handy Allen MD 505 [place] [address] PCP - General Internal Medicine 11/17/12 documented as of this encounter
--- OUTSIDE RECORDS SUMMARY | 2024-03-25 14:48 | XMS_ITS | Encounter Summary ---
Author Organization [employer] Address [address] [place] [address] Care Team Providers Care Worker'S Compensation Claims Examiner Name Role Phone Handy Elias MD Primary Care Provider +1- [phone] Reason for Visit * Reason Onset Date Comments Call Back Request 06/19/2023 Encounter Details Date Type Department Care Team (Late st Contact Info) Description 06/19/2023 Telephone [facility] MEDICINE 230 [place] [address] Handy Elias MD 505 [place] [address] Call Back Request Social History Tobacco Use [...] 2:00 PM EDT Office Visit [facility] MED & PEDS 505 [place] [address] Handy Elias MD 505 [place] [address] 05/25/2024 3:00 PM EDT Telemedicine [facility] MED & PEDS 505 [place] [address] Tessa Cox RN 505 [place] [address] documented as of this encounter Visit Diagnoses Not on filedocumented in this encounter Care Teams Worker'S Compensation Claims Examiner Relationship Specialty Start Date End Date Handy Elias MD 505 [place] [address] PCP - General Internal Medicine 11/17/12 documented as of this encounter
--- OUTSIDE RECORDS SUMMARY | 2024-03-25 14:48 | XMS_ITS | Encounter Summary ---
Author Organization [employer] Address [address] [place] [address] 7 [place] [address] Care Team Providers Care Physician/Internist Name Role Phone Handy Elias MD Primary Care Provider [phone]- [phone] Encounter Details Date Type Department Care Team (Late Contact Info) Description 03/14/2023 Orders Only [facility] CHC MED & PEDS 505 [place] [address] Handy Elias MD 505 [place] [address] Chronic pain syndrome; Primary insomnia Social History [...] 2:00 PM EDT Office Visit [facility] MED & PEDS 505 [place] [address] Handy Elias MD 505 [place] [address] 05/25/2024 3:00 PM EDT Telemedicine [facility] MED & PEDS 505 [place] [address] Tessa Cox RN [address] [place] [address] documented as of this encounter Visit Diagnoses Diagnosis Chronic pain syndrome Primary insomnia Persistent disorder of initiating or maintaining sleep documented in this encounter Care Teams Physician/Internist Relationship Specialty Start Date End Date Handy Elias MD 505 [place] [address] PCP - General Internal Medicine 11/17/12 documented as of this encounter
--- OUTSIDE RECORDS SUMMARY | 2024-03-25 14:48 | XMS_ITS | Encounter Summary ---
Author Organization [employer] Address [address] [place] [address] Care Team Providers Care Internet Marketing Assistant Name Role Phone Handy Elias MD Primary Care Provider +1- [phone] Reason for Visit * Reason Onset Date Comments Reschedule 04/01/2023 Encounter Details Date Type Department Care Team (Late st Contact Info) Description 04/01/2023 Telephone [facility] MEDICINE 230 [place] [address] Handy Elias MD 505 [place] [address] Reschedule Social History Tobacco Use Types Packs/Day [...] Phillip from [employer] requesting r/s 04/04/2023 appt, technical publications writer attempted to schedule no availability. documented in this encounter Plan of Treatment Upcoming Encounters Date Type Department Care Team (Late st Contact Info) Description 05/08/2024 2:00 PM EDT Office Visit [facility] MED & PEDS 505 [place] [address] Handy Elias MD 505 [place] [address] 05/25/2024 3:00 PM EDT Telemedicine [facility] MED & PEDS [address] [place] [address] Tessa Cox RN 505 [place] [address] documented as of this encounter Visit Diagnoses Not on filedocumented in this encounter Care Teams Internet Marketing Assistant Relationship Specialty Start Date End Date Handy Elias MD 505 [place] [address] PCP - General Internal Medicine 11/17/12 documented as of this encounter
--- OUTSIDE RECORDS SUMMARY | 2024-03-25 14:48 | XMS_ITS | Encounter Summary ---
Author Organization [employer] Address [address] [place] [address] 7 [place] [address] Care Team Providers Care Laundry Technician Name Role Phone Handy Elias MD Primary Care Provider [phone] Reason for Visit * Reason Onset Date Comments Med Refill 07/30/2023 Encounter Details Date Type Department Care Team (Late st Contact Info) Description 07/30/2023 Telephone [facility] MEDICINE [address] [place] [address] Handy Elias MD [address] [place], [place] [phone] Med Refill Social History Tobacco Use Types [...] release tablet To be sent to: [facility]/pharmacy #[id number] - [place]WIS - [address] [place] [address] AT [address], [place] [address] documented in this encounter Plan of Treatment Upcoming Encounters Date Type Department Care Team (Late st Contact Info) Description 05/08/2024 2:00 PM EDT Office Visit [facility] MED & PEDS [address] [place] [address] Handy Elias MD [address] [place] [address] 05/25/2024 3:00 PM EDT Telemedicine [facility] MED & PEDS [address] [place] [address] Tessa Cox RN [address] [place] [address] documented as of this encounter Visit Diagnoses Not on filedocumented in this encounter Care Teams Laundry Technician Relationship Specialty Start Date End Date Handy Elias MD [address] [place] [address] PCP - General Internal Medicine 11/17/12 documented as of this encounter
--- OUTSIDE RECORDS SUMMARY | 2024-03-25 14:48 | XMS_ITS | Encounter Summary ---
Author Organization [employer] Address [address] [place] [address] 7 [place] [address] Care Team Providers Care Senior Benefits Specialist Name Role Phone Handy Elias MD Primary Care Provider [phone] Encounter Details Date Type Department Care Team (Late Contact Info) Description 12/12/2022 Orders Only [facility] MED & PEDS [address] [place], [place] [phone] Handy Elias MD [address] [place], [place] [phone] Vitamin B12 deficiency (Primary Dx) Social History [...] Description 05/08/2024 2:00 PM EDT Office Visit [facility] MED & PEDS [address] [place], [place] [phone] Handy Elias MD [address] [place], [place] [phone] 05/25/2024 3:00 PM EDT Telemedicine [facility] MED & PEDS [address] [place] [address] Tessa Cox RN [address] [place] [address] documented as of this encounter Visit Diagnoses Diagnosis Vitamin B12 deficiency- Primary Other B-complex deficiencies documented in this encounter Care Teams Senior Benefits Specialist Relationship Specialty Start Date End Date Handy Elias MD [address] [place] [address] PCP - General Internal Medicine 11/17/12 documented as of this encounter
--- OUTSIDE RECORDS SUMMARY | 2024-03-25 14:48 | XMS_ITS | Encounter Summary ---
Author Organization [employer] Address [address] [place] [address] 7 [place] [address] Care Team Providers Care Tissue Recovery Technician Name Role Phone Handy Elias MD Primary Care Provider [phone]- [phone] Encounter Details Date Type Department Care Team (Late st Contact Info) Description 12/26/2022 Abstract [facility] MEDICINE [address] [place], [place] [phone] Handy Elias MD [address] [place], [place] [phone] Social History Tobacco Use Types Packs/Day Years [...] Description 05/08/2024 2:00 PM EDT Office Visit [facility] MED & PEDS [address] [place], [place] [phone] Handy Elias MD [address] [place], [place] [phone] 05/25/2024 3:00 PM EDT Telemedicine [facility] MED & PEDS [address] [place], [place] [phone] Tessa Cox, MARITA [address] [place] [address] documented as of this encounter Visit Diagnoses Not on filedocumented in this encounter Care Teams Tissue Recovery Technician Relationship Specialty Start Date End Date Handy Elias MD [address] [place] [address] PCP - General Internal Medicine 11/17/12 documented as of this encounter
== END 2024-03-25 12:40 | disposition home or self-care (01) ==
LOC: HO.HMGCX 12:39
PROVIDERS: PCP Internal Medicine; Visit Provider Internal Medicine
DX: R79.89 Other specified abnormal findings of blood chemistry (principal)
CPT/HCPCS: 76700

== ENCOUNTER → 2024-03-25 12:41 | Outpatient (BNV) | payer MEDICARE, SELFPAY | PROVIDERS: PCP Internal Medicine; Visit Provider Radiology Diagnostic Radiology | DX: I70.0 Atherosclerosis of aorta (principal) | CPT/HCPCS: 76700 ==

== ENCOUNTER 2024-04-09 13:48 | Outpatient (REF) | payer MEDICARE, SELFPAY ==
--- OUTSIDE RECORDS SUMMARY | 2024-04-09 13:51 | XMS_ITS | Encounter Summary ---
Author Organization [employer] Address [address] [place] [address] 7 [place] [address] Care Team Providers Care Lollypop Machine Operator Name Role Phone Handy Elias MD Primary Care Provider [phone] Encounter Details Date Type Department Care Team (Late Contact Info) Description 10/10/2022 Orders Only [facility] MED & PEDS [address] [place], [place] [phone] Handy Elias MD [address] [place] [address] Social History Tobacco Use Types Packs/Day Years [...] Description 05/08/2024 2:00 PM EDT Office Visit [facility] MED & PEDS [address] [place], [place] [phone] Handy Elias MD [address] [place] [address] 05/25/2024 3:00 PM EDT Telemedicine [facility] MED & PEDS [address] [place], [place] [phone] Tessa Cox, MARITA [address] [place] [address] documented as of this encounter Visit Diagnoses Not on filedocumented in this encounter Care Teams Lollypop Machine Operator Relationship Specialty Start Date End Date Handy Elias MD [address] [place] [address] PCP - General Internal Medicine 11/17/12 documented as of this encounter
--- OUTSIDE RECORDS SUMMARY | 2024-04-09 13:51 | XMS_ITS | Encounter Summary ---
Author Organization [employer] Address [address] [facility] 7 [place] [address] Care Team Providers Care Hydro Technician Name Role Phone Handy Elias MD Primary Care Provider [phone] Reason for Visit * Reason Comments Med Refill Encounter Details Date Type Department Care Team (Late st Contact Info) Description 03/12/2024 Refill [facility] MEDICINE [address] [place] [address] Handy Elias MD [address] [place], [place] [phone] Primary insomnia Social History Tobacco Use Types [...] the past 12 months, has t he [employer] oil or [employer] company threatened to shut [...] Description 05/08/2024 2:00 PM EDT Office Visit [facility] MED & PEDS [address] [place] [address] Handy Elias MD [address] [place] [address] 05/25/2024 3:00 PM EDT Telemedicine [facility] MED & PEDS [address] [place] [address] Tessa Cox RN 505 [place] [address] documented as of this encounter Visit Diagnoses Diagnosis Primary insomnia Persistent disorder of initiating or maintaining sleep documented in this encounter Care Teams Hydro Technician Relationship Specialty Start Date End Date Handy Elias MD [address] [place] [address] PCP - General Internal Medicine 11/17/12 documented as of this encounter
--- OUTSIDE RECORDS SUMMARY | 2024-04-09 13:51 | XMS_ITS | Encounter Summary ---
Author Organization [employer] Address [address] [facility] 7 [place] [address] Care Team Providers Care Aging Room Operator Name Role Phone Handy Elias MD Primary Care Provider [phone] Reason for Visit * Reason Comments Pre-visit Planning SDOH unable to reach LVM Encounter Details Date Type Department Care Team ([facility] st Contact Info) Description 03/10/2024 Patient Outreach [facility] MED & PEDS [address] [place], [place] [phone] Handy Elias MD [address] [place], [place] [phone] Pre-visit Planning (SDOH unable to reach LVM [...] Upcoming Encounters Date Type Department Care Team ([facility] st Contact Info) Description 05/08/2024 2:00 PM EDT Office Visit [facility] MED & PEDS [address] [place] [address] Handy Elias MD [address] [place] [address] 05/25/2024 3:00 PM EDT Telemedicine [facility] MED & PEDS [address] [place] [address] Tessa Cox RN [address] [place] [address] documented as of this encounter Visit Diagnoses Not on filedocumented in this encounter Care Teams Aging Room Operator Relationship Specialty Start Date End Date Handy Elias MD [address] [place] [address] PCP - General Internal Medicine 11/17/12 documented as of this encounter
--- OUTSIDE RECORDS SUMMARY | 2024-04-09 13:52 | XMS_ITS | Encounter Summary ---
Author Organization [employer] Address [address] [place] [address] 7 [place] [address] Care Team Providers Care Order Administrator Name Role Phone Handy Elias MD Primary Care Provider [phone]- [phone] Encounter Details Date Type Department Care Team (Late Contact Info) Description 08/29/2022 Orders Only [facility] MED & PEDS [address] [place], [place] [phone] Handy Elias MD [address] [place] [address] Social History Tobacco Use Types Packs/Day Years [...] Description 05/08/2024 2:00 PM EDT Office Visit [facility] MED & PEDS [address] [place] [address] Handy Elias MD [address] [place], [place] [phone] 05/25/2024 3:00 PM EDT Telemedicine [facility] MED & PEDS [address] [place] [address] Tessa Cox RN [address] [place] [address] documented as of this encounter Visit Diagnoses Not on filedocumented in this encounter Care Teams Order Administrator Relationship Specialty Start Date End Date Handy Elias MD [address] [place] [address] PCP - General Internal Medicine 11/17/12 documented as of this encounter
--- OUTSIDE RECORDS SUMMARY | 2024-04-09 13:52 | XMS_ITS | Encounter Summary ---
Author Organization [facility] [employer] Address [address] [place] [address] 7 [place] [address] Care Team Providers Care Reservations And Ticketing Agent Name Role Phone Handy Elias MD Primary Care Provider [phone] Reason for Referral * Imaging (Routine) - Closed Specialty Diagnoses / Procedures Referred By Maurice t Referred To Contact Radiology Diagnoses Abnormal LFTs Procedures US Abdomen Complete Handy Elias MD [address] [place] [address] Phone: tel: fax: [address] Phone: tel: fax: Referral ID Status Reason Start Date Expiration Date Visits Re quested Visits Authorized [id number] Closed 03/19/2024 03/19/2025 1 1 * Imaging (Urgent) - Closed Specialty Diagnoses / Procedures Referred By Contac t Referred To Contact Radiology Diagnoses Other headache syndrome Procedures CT Head w/o Contrast Handy Elias MD [address] [place] [address] Phone: tel: fax: [address] Phone: tel: fax: Referral ID Status Reason Start Date Expiration Date Visits Re quested Visits Authorized [id number] Closed 03/19/2024 03/19/2025 1 1 * Imaging (Routine) - Canceled Specialty Diagnoses / Procedures Referred By Maurice weaver Referred To Contact Radiology Diagnoses Abnormal LFTs Procedures US Abdomen Complete Handy Elias MD [address] [place] [address] Phone: tel: fax: [address] Phone: tel: fax: Referral ID Status Reason Start Date Expiration Date V isits Requested Visits Authorized [id number] Canceled 03/19/2024 03/19/2025 1 1 Reason for Visit * Reason Comments History of fall Encounter Details Date Type Department Care Team (Late st Contact Info) Description 03/19/2024 2:00 PM EST Office Visit [facility] [address] [place] [address] Handy Elias MD [address] [place] [address] Abnormal LFTs (Primary Dx); Bruises easily; Fall, [...] BY INTRAMUSCULAR ROUTE ONCE A MONTH FOR [id number] INJECTIONS 12 each 1 cholecalciferol (Vitamin D-3) [...] breath) - XR Chest 2 Views; Future 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 documented in this encounter Plan of Treatment Upcoming Encounters Date Type Department Care Team (Late st Contact Info) Description 05/08/2024 2:00 PM EDT Office Visit [facility] [address] [place] [address] Handy Elias MD [address] [place] [address] 05/25/2024 3:00 PM EDT Telemedicine [facility] [address] [place] [address] Tessa Cox RN [address] [place] [address] Scheduled Orders Name Type Priority Associated Diagnoses Orde r Schedule US Abdomen Complete Imaging Routine Abnormal LFTs Expected: 03/19/2024, Expires: 03/19/2025 documented as of this encounter Procedures Procedure Name Priority Date/Time Associated Diagnosis Comments US ABDOMEN COMPLETE Routine 03/27/2024 1 1:50 AM EST Abnormal LFTs CT HEAD WO CONTRAST Urgent 03/23/2024 4 [...] breath) documented in this encounter Results * US Abdomen Complete (03/27/2024 11:50 AM EST) Anatomical Region Laterality Modality Abdomen Ultrasound 03/27/2024 11:5 0 AM EST Narrative 03/27/2024 11:51 AM EST ? [facility] ?[address] ? [place] [address] ? Ultrasound Report ? Signed ? Patient: Bloomingdale,Henri F ?MR#: [id number] ?? 81 ? : 1960 ?Acct:[id number] ? Age/Sex: 64 / M ?ADM Date: 03/25/24 ? Loc: HO.HMGCX ? Attending Dr: Handy Elias MD ? Ordering Physician: Handy Elias MD ?? Date of Service: 03/25/24 ?? Procedure(s): US abdomen complete ?? Accession Number(s): [id number] ? cc: Handy Elias MD ? CLINICAL HISTORY: Elevated LFTs ? US abdomen complete with duplex and color Doppler ? Comparison: None ? Findings: ?? The visualized pancreas, and inferior vena cava are unremarkable. ?? Calcified atherosclerotic plaque abdominal aorta. ? Liver normal size and mildly echogenic. Right lobe 17.1 cm length. No ?? focal hepatic masses. ?? Common duct 2.4 mm diameter. ?? Physiologic distention of the gallbladder. No gallstones or sludge. Tail ?? sign suggest adenomyomatosis. Mural cyst versus diverticulum within the ?? fundus of the gallbladder measuring 11 x 6 x 5 mm. No pericholecystic ?? fluid. No sonographic Mustafa sign. ?? Main portal vein antegrade. ? Right kidney normal size, 10.4 cm in length. Normal cortical width and ?? echotexture. No solid or cystic renal masses. No nephrolithiasis or ?? hydronephrosis. ?? Left kidney normal, 11.9 cm in length. Normal cortical width and ?? echotexture. No solid or cystic renal masses. No nephrolithiasis or ?? hydronephrosis. ? Spleen measures 13.6 cm. No splenic masses. ? No ascites. No lymphadenopathy. ? Impression: ?? 1. Suspect gallbladder adenomyomatosis intramural cyst versus small ?? diverticulum fundus of the gallbladder. No gallstones demonstrated. ?? Suspect mild intrahepatic ductal dilatation. MRCP may be of further ?? diagnostic value. ?? 2. Mild splenomegaly. Echogenic liver reflecting hepatic steatosis or mild ?? diffuse hepatocellular disease. ?? 3. Calcified plaque abdominal aorta. ? This document has been electronically signed by: Andrey Santamaria MD on ?? 03/27/2024 11:50:14 ? Dictated By: ?Andrey Santamaria MD ? Signed By: ?<Electronically signed by Andrey Santamaria MD in OV> ?03/27/241149 ? DD/ 49 ? TD/TT: 03/27/24 1150 ? Morning Show Producer: ? Procedure Note Donotuseinterpreter, Image - 03/27/2024 [facility] [address] [place] [address] [place] [address] Ultrasound Report Signed Patient: Henri Espino FMR#: [id number] [birth year] : 8Acct:[id number] Age/Sex: 64 / MADM Date: 03/25/24 Loc: HO.HMGCX Attending Dr: Handy Elias MD Ordering Physician: Handy Elias MD Date of Service: 03/25/24 Procedure(s): US abdomen complete Accession Number(s): [id number] cc: Handy Elias MD CLINICAL HISTORY: Elevated LFTs US abdomen complete with duplex and color Doppler Comparison: None Findings: The visualized pancreas, and inferior vena cava are unremarkable. Calcified atherosclerotic plaque abdominal aorta. Liver normal size and mildly echogenic. Right lobe 17.1 cm length. No focal hepatic masses. Common duct 2.4 mm diameter. Physiologic distention of the gallbladder. No gallstones or sludge. Tail sign suggest adenomyomatosis. Mural cyst versus diverticulum within the fundus of the gallbladder measuring 11 x 6 x 5 mm. No pericholecystic fluid. No sonographic Mustafa sign. Main portal vein antegrade. Right kidney normal size, 10.4 cm in length. Normal cortical width and echotexture. No solid or cystic renal masses. No nephrolithiasis or hydronephrosis. Left kidney normal, 11.9 cm in length. Normal cortical width and echotexture. No solid or cystic renal masses. No nephrolithiasis or hydronephrosis. Spleen measures 13.6 cm. No splenic masses. No ascites. No lymphadenopathy. Impression: 1. 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 No gallstones demonstrated. Suspect mild intrahepatic ductal dilatation. MRCP may be of further diagnostic value. 2. Mild splenomegaly. Echogenic liver reflecting hepatic steatosis or mild diffuse hepatocellular disease. 3. Calcified plaque abdominal aorta. This document has been electronically signed by: Andrey Santamaria MD on 03/27/2024 11:50:14 Dictated By: Andrey Santamaria MD Signed By: <Electronically signed by Andrey Santamaria MD in OV> 03/27/24 1150 DD/ 1150 TD/TT: 03/27/24 1150 Morning Show Producer: us Handy Elias MD IMG US PROCEDURES Final Res ult * CT Head w/o Contrast (03/23/2024 4:26 PM EST) Anatomical Region Laterality Modality Head, Neck Computed Tomogra phy 03/23/2024 4:26 PM EST Narrative 03/24/2024 7:12 AM EST ? [facility] ?[address] ?[place] [address] ? CT Scan Report ? Signed ? Patient: Henri Espino ?MR#: [id number] ?? 79 ? : 1960 ?Acct:[id number] ? Age/Sex: 64 / M ?ADM Date: 03/23/24 ? Loc: HO.CT ? Attending Dr: Handy Elias MD ? Ordering Physician: Handy Elias MD ?? Date of Service: 03/23/24 ?? Procedure(s): CT head/brain wo IV con ?? Accession Number(s): [id number] ? cc: Handy Elias MD ? Report Number: ?? [id number]: Total DLP = ??853.00 mGy-cm ?? EXAMINATION: [...] DD/ 1626 ? TD/TT: 03/23/24 1743 ? Morning Show Producer: MSM ? Procedure Note Bri Beck - 03/24/[address] [address] [address] Scan Report Signed Patient: Henri Espnio FMR#: [id number] [birth year] : 8Acct:[id number] Age/Sex: 64 / MADM Date: 03/23/24 Loc: HO.CT Attending Dr: Handy Elias MD Ordering Physician: Handy Elias MD Date of Service: 03/23/24 Procedure(s): CT head/brain wo IV con Accession Number(s): [id number] cc: Handy Elias MD Report Number: [id number]: Total DLP = 853.00 mGy-cm EXAMINATION: CT [...] OV> 03/24/24 0709 DD/ 1626 TD/TT: 03/23/24 9043 Morning Show Producer: [facility] us Handy Elias MD [facility] [place] PROCEDURES Final Res ult * Partial Thromboplastin Time, Activated (APTT) (03/23/2024 4:24 PM EST) [facility] Signature Partial Thromboplastin Time 32.8 26.0 - 36.8 SEC [facility] Comment:For information rega rding the monitoring of direct thrombininhibitors, please refer to Pharmacy. Blood Venous blood specimen / Unknown 03/23/2024 4:24 PM EST 03/23/2024 4:24 PM EST us Handy Elias MD LAB BLOOD ORDERABLES Final Result Performing Organization Address [facility] Co de Phone Number [facility] [address] [place] [phone] * Prothrombin Time-INR (03/23/2024 4:24 PM EST) Prothrombin Time 11.0 10.9 - 12.4 SEC [facility] INTERNATIONAL NORM RATIO 0.9 0.9 - 1.1 [facility] Comment:INTERNATIONAL NORMAL IZED RATIO (INR) [...] BLOOD ORDERABLES Final Result Performing Organization Address [facility] Co de Phone Number [facility] [address] [place] [phone] * (ABNORMAL) Basic Metabolic Panel (03/23/2024 4:24 PM EST) Sodium 136 135 - 145 mmol/L [facility] Potassium 4.8 3.3 - 5.1 mmol/L [facility] Chloride 105 96 - 108 mmol/L [facility] Carbon Dioxide 23 22 - 29 mmol/L [facility] Anion Gap 13 12 - 20 [facility] Urea Nitrogen (BUN) 18(H) 9 - 16 mg/dL [facility] Creatinine, Serum 1.39 0.5 - 1.4 mg/dL [facility] Estimated Glomerular Filt Rate 51 [facility] Comment:Chronic Kidney Disea se: Estimated GFR < 60 mL/min/1.97q2Yepcua Kidney Disease: Estimated GFR < 15 mL/min/1.73m2 Glucose 92 60 - 115 mg/dL [facility] Calcium 9.4 8.4 - 10.2 mg/dL [facility] Blood Venous blood specimen / Unknown 03/23/2024 4:24 PM EST 03/23/2024 4:24 PM EST us Handy Elias MD LAB BLOOD ORDERABLES Final Result [facility] [address] [place] [phone] * (ABNORMAL) CBC auto differential (03/23/2024 4:24 PM EST) White Blood Count 9.8 4.8 - 10.8 X10*3/uL [facility] Red Blood Count 5.06 4.60 - 5.80 X10*6/uL [facility] Hemoglobin 15.9 14.0 - 18.0 g/dl [facility] Hematocrit 47.7 42.0 - 52.0 % [facility] Mean Corpuscular Volume 94.3 80.0 - 98.0 fL [facility] Mean Corpuscular Hemoglobin 31.4 27.0 - 33.0 pg [facility] Mean Corpuscular HGB Conc 33.3 31.0 - 36.0 g/dl [facility] Red Cell Distribution Width 14.0 11.0 - 16.0 % [facility] Platelet Count 293 160 - 400 X10*3/uL [facility] Mean Platelet Volume 9.9 9.4 - 12.4 fL [facility] Neutrophils Percent Auto 65.0 45 - 73 % [facility] Imm Gran Pct Auto 2.4(H) 0.0 - 0.4 % [facility] Lymphocytes Percent Auto 19.0(L) 20 - 40 % [facility] Monocytes Percent Auto 10.3 2 - 11 % [facility] Eosinophils Percent Auto 2.6 0 - 4 % [facility] Basophils Percent Auto 0.7 0 - 2 % [facility] NRBC Pct Auto 0.0 0.0 - 0.2 /100WBC [facility] Neutrophils Absolute Auto 6.4 2.0 - 8.3 x10*3/uL [facility] Imm Gran Abs Auto 0.23(H) 0.00 - 0.03 X10*3/uL [facility] Lymphocytes Absolute Auto 1.9 1.2 - 4.9 X10*3/uL [facility] Monocytes Absolute Auto 1.0 0.1 - 1.2 X10*3/uL [facility] Eosinophils Absolute Auto 0.3 0.0 - 0.4 X10*3/uL [facility] Basophils Absolute Auto 0.1 0.0 - 0.2 X10*3/uL [facility] NRBC Abs Auto 0.000 0.0 - 0.012 X10*3/uL [facility] Blood Venous blood specimen / Unknown 03/23/2024 4:24 PM EST 03/23/2024 4:24 PM EST us Handy Elias MD LAB BLOOD ORDERABLES Final Result [facility] [address] [place] [phone] [phone] * XR Chest 2 Views (03/23/2024 3:44 PM EST) Anatomical Region Laterality Modality Chest Radiographic Ame ging 03/23/2024 3:44 PM EST Narrative 03/23/2024 5:03 PM EST ? [facility] [place] [facility] ?[address] ?[place] [address] ?XRay Report ? Signed ? Patient: Srinivas,Henri F ?MR#: [id number] ?? 79 ? : 1960 ?Acct:[id number] ? Age/Sex: 64 / M ?ADM Date: 03/23/24 ? Loc: HO.CT ? Attending Dr: Handy Elias MD ? Ordering Physician: Handy Elias MD ?? Date of Service: 03/23/24 ?? Procedure(s): XR chest 2V ?? Accession Number(s): [id number] ? cc: Handy Elias MD ? EXAMINATION: [...] DD/ 1544 ? TD/TT: 03/23/24 1605 ? Morning Show Producer: MSM ? Procedure Note Bri Beck - 03/23/[address] [address] XRay Report Signed Patient: Henri Espino FMR#: [id number] 79 : 8Acct:[id number] Age/Sex: 64 / MADM Date: 03/23/24 Loc: HO.CT Attending Dr: Handy Elias MD Ordering Physician: Handy Elias MD Date of Service: 03/23/24 Procedure(s): XR chest 2V Accession Number(s): [id number] cc: Handy Elias MD EXAMINATION: XR CHEST [...] 03/23/24 1700 DD/ 1544 TD/TT: 03/23/24 1605 Morning Show Producer: [facility] Handy Elias MD IMG XR PROCEDURES Final Res ult documented in this encounter Visit Diagnoses Diagnosis Abnormal LFTs- Primary Bruises easily Other symptoms involving skin and integumentary tissues Fall, initial encounter Other headache syndrome SOB (shortness of breath) Shortness of breath documented in this encounter Care Teams Reservations And Ticketing Agent Relationship Specialty Start Date End Date Handy Elias MD [address] [place] [address] PCP - General Internal Medicine 11/17/12 documented as of this encounter
--- OUTSIDE RECORDS SUMMARY | 2024-04-09 13:52 | XMS_ITS | Encounter Summary ---
Author Organization [employer] Address [address] [place] [address] 7 [place] [address] Care Team Providers Care Substation Superintendent Name Role Phone Handy Elias MD Primary Care Provider [phone] Encounter Details Date Type Department Care Team (Late st Contact Info) Description 05/14/2023 Orders Only [facility] [address] [place] [address] Handy Elias MD [address] [place] [address] Mood disorder (CMS/HCC) (Primary Dx) Social History [...] 2:00 PM EDT Office Visit [facility] [address] [place] [address] Handy Elias MD [address] [place] [address] 05/25/2024 3:00 PM EDT Telemedicine [facility] [address] [place] [address] Tessa Cox RN [address] [place] [address] documented as of this encounter Visit Diagnoses Diagnosis Mood disorder (CMS/HCC)- Primary Unspecified episodic mood disorder documented in this encounter Care Teams Substation Superintendent Relationship Specialty Start Date End Date Handy Elias MD [address] [place] [address] PCP - General Internal Medicine 11/17/12 documented as of this encounter
--- OUTSIDE RECORDS SUMMARY | 2024-04-09 13:52 | XMS_ITS | Encounter Summary ---
Author Organization [employer] Address [address] [place] [address] 7 [place] [address] Care Team Providers Care Windows Systems Architect Name Role Phone Handy Elias MD Primary Care Provider [phone] Encounter Details Date Type Department Care Team (Late Contact Info) Description 03/14/[address] [facility] [address] [place] [address] Handy Elias MD [address] [place] [address] Chronic pain syndrome; Primary insomnia Social History [...] 2:00 PM EDT Office Visit [facility] [address] [place] [address] Handy Elias MD [address] [place] [address] 05/25/2024 3:00 PM EDT Telemedicine [facility] [address] [place] [address] Tessa Cox RN [address] [place] [address] documented as of this encounter Visit Diagnoses Diagnosis Chronic pain syndrome Primary insomnia Persistent disorder of initiating or maintaining sleep documented in this encounter Care Teams Windows Systems Architect Relationship Specialty Start Date End Date Handy Elias MD [address] [place] [address] PCP - General Internal Medicine 11/17/12 documented as of this encounter
--- OUTSIDE RECORDS SUMMARY | 2024-04-09 13:52 | XMS_ITS | Encounter Summary ---
Author Organization [employer] Address [address] [facility] 7 [place] [address] Care Team Providers Care Equine Science Instructor Name Role Phone Handy Elias MD Primary Care Provider [phone] Reason for Visit * Reason Onset Date Comments Med Refill 09/23/2023 Encounter Details Date Type Department Care Team (Late st Contact Info) Description 09/23/2023 Telephone [facility] [address] [place] [address] Handy Elias MD [address] [place], [place] [phone] Med Refill Social History Tobacco Use Types [...] immediate release tablet To be sent to: [facility]/pharmacy #[id number] - [place], [place] - [address] [facility] [address] [place] [address] documented in this encounter Plan of Treatment Upcoming Encounters Date Type Department Care Team (Late st Contact Info) Description 05/08/2024 2:00 PM EDT Office Visit [facility] [address] [place] [address] Handy Elias MD [address] [place] [address] 05/25/2024 3:00 PM EDT Telemedicine [facility] [address] [place] [address] Tessa Cox RN [address] [place] [address] documented as of this encounter Visit Diagnoses Not on filedocumented in this encounter Care Teams Equine Science Instructor Relationship Specialty Start Date End Date Handy Elias MD [address] [place] [address] PCP - General Internal Medicine 11/17/12 documented as of this encounter
--- OUTSIDE RECORDS SUMMARY | 2024-04-09 13:52 | XMS_ITS | Encounter Summary ---
Author Organization [employer] Address [address] [facility] [address] [place] [address] Care Team Providers Care Safety Security Officer Name Role Phone Handy Elias MD Primary Care Provider [phone] Reason for Visit * Reason Onset Date Comments Results 04/02/2024 Encounter Details Date Type Department Care Team ([facility] st Contact Info) Description 04/02/2024 Telephone [facility] [address] [place], [place] [phone] Renay Almeida, MARITA Results Social History Tobacco Use Types Packs/Day [...] encounter Miscellaneous Notes * Telephone Encounter - Wing Wayne RN - 04/03/2024 3:51 PM EST Images from the original note were not included. Tc to pt regarding US results and PCP lifestyle recommendations. Pt verbalized understanding and agreement with plan. States he sees kidney specialist on Apr 15. Handy Elias MD [facility] Nurses Please call to report the results of the ultrasound of the abdomen. 1. 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 No gallstones demonstrated. Suspect mild intrahepatic ductal dilatation. MRCP may be of further diagnostic value. 2. Mild splenomegaly. Echogenic liver reflecting hepatic steatosis or mild diffuse hepatocellular disease. 3. Calcified plaque abdominal aorta. No acute finding. Fatty liver noted which can evolve into liver cirrhosis. Weight loss is recommended. Incidental finding of calcified plaque of the abdominal aorta. Good BP control is recommended and low-cholesterol diet recommended as well. * Telephone Encounter - Renay Almeida RN - 04/02/2024 10:50 AM EST TC placed to pt and LVM to call back the office in regards to message below ----- Message from Handy Elias MD sent at 03/30/2024 9:20 AM EST ----- Please call to report the results of the ultrasound of the abdomen. 1. 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 No gallstones demonstrated. Suspect mild intrahepatic ductal dilatation. MRCP may be of further diagnostic value. 2. Mild splenomegaly. Echogenic liver reflecting hepatic steatosis or mild diffuse hepatocellular disease. 3. Calcified plaque abdominal aorta. No acute finding. Fatty liver noted which can evolve into liver cirrhosis. Weight loss is recommended. Incidental finding of calcified plaque of the abdominal aorta. Good BP control is recommended and low-cholesterol diet recommended as well. ----- Message ----- From: Interface, Ris Results In Sent: 03/27/2024 11:52 AM EST To: Handy Elias MD documented in this encounter Plan of Treatment Upcoming Encounters Date Type Department Care Team (Late st Contact Info) Description 05/08/2024 2:00 PM EDT Office Visit [facility] [address] [place] [address] Handy Elias MD [address] [place] [address] 05/25/2024 3:00 PM EDT Telemedicine [facility] [address] [place] [address] Tessa Cox, MARITA [address] [place] [address] documented as of this encounter Visit Diagnoses Not on filedocumented in this encounter Care Teams Safety Security Officer Relationship Specialty Start Date End Date Handy Elias MD [address] [place] [address] PCP - General Internal Medicine 11/17/12 documented as of this encounter
--- OUTSIDE RECORDS SUMMARY | 2024-04-09 13:52 | XMS_ITS | Encounter Summary ---
Author Organization [employer] Address [address] [facility] 7 [place] [address] Care Team Providers Care Android Software Engineer Name Role Phone Handy Elias MD Primary Care Provider [phone] Reason for Visit * Reason Onset Date Comments Medication Question 08/01/2022 Encounter Details Date Type Department Care Team ([facility] st Contact Info) Description 08/01/2022 Telephone [facility] [address] [place] [address] Handy Elias MD [address] [place], [place] [phone] Medication Question Social History Tobacco Use Types [...] Pt is also requestinga call back from PLANNING TECHNICIAN RN. Please contact at [phone] documented in this encounter Plan of Treatment Upcoming Encounters Date Type Department Care Team (Late st Contact Info) Description 05/08/2024 2:00 PM EDT Office Visit [facility] MED [facility] PED[facility] [address] [place] [address] Handy Elias MD [address] [place] [address] 05/25/2024 3:00 PM EDT Telemedicine [facility] [address] [place] [address] Tessa Cox, MARITA [address] [place] [address] documented as of this encounter Visit Diagnoses Not on filedocumented in this encounter Care Teams Android Software Engineer Relationship Specialty Start Date End Date Handy Elias MD [address] [place] [address] PCP - General Internal Medicine 11/17/12 documented as of this encounter
--- OUTSIDE RECORDS SUMMARY | 2024-04-09 13:52 | XMS_ITS | Encounter Summary ---
Author Organization [employer] Address [address] [place] [address] [place] [address] Care Team Providers Care Senior Functional Analyst Name Role Phone Handy Elias MD Primary Care Provider [phone] Reason for Visit * Reason Onset Date Comments Med Refill 02/13/2023 Encounter Details Date Type Department Care Team (Late st Contact Info) Description 02/13/2023 Telephone [facility] MEDICINE [address] [place] [address] Handy Elias MD [address] [place], [place] [phone] Med Refill Social History Tobacco Use Types [...] oxyCODONE (Roxicodone) 5 MG immediate release tablet [facility]/pharmacy #[id number] - [place] - [address] [place] [address] [address] [facility] [address] documented in this encounter Plan of Treatment Upcoming Encounters Date Type Department Care Team (Late st Contact Info) Description 05/08/2024 2:00 PM EDT Office Visit [facility] MED & PEDS [address] [place] [address] Handy Elias MD [address] [place] [address] 05/25/2024 3:00 PM EDT Telemedicine [facility] MED & PEDS [address] [place] [address] Tessa Cox, MARITA 505 [place] [address] documented as of this encounter Visit Diagnoses Not on filedocumented in this encounter Care Teams Senior Functional Analyst Relationship Specialty Start Date End Date Handy Elias MD [address] [place] [address] PCP - General Internal Medicine 11/17/12 documented as of this encounter
--- OUTSIDE RECORDS SUMMARY | 2024-04-09 13:52 | XMS_ITS | Encounter Summary ---
Author Organization [employer] Address [address] [facility] 7 [place] [address] Care Team Providers Care Adviser Sales Name Role Phone Handy Elias MD Primary Care Provider [phone] Reason for Visit * Reason Onset Date Comments call back requested 10/18/2023 Encounter Details Date Type Department Care Team ([facility] st Contact Info) Description 10/18/2023 Telephone [facility] MEDICINE [address] [place] [address] Handy Elias MD [address] [place], [place] [phone] call back requested Social History Tobacco Use [...] spouse states just missed a call from RACE BOARD ATTENDANT nurse Tessa . documented in this encounter Plan of Treatment Upcoming Encounters Date Type Department Care Team (Late st Contact Info) Description 05/08/2024 2:00 PM EDT Office Visit [facility] MED & PEDS [address] [place] [address] Handy Elias MD [address] [place] [address] 05/25/2024 3:00 PM EDT Telemedicine [facility] MED & PEDS [address] [place] [address] Tessa Cox RN 505 [place] [address] documented as of this encounter Visit Diagnoses Not on filedocumented in this encounter Care Teams Adviser Sales Relationship Specialty Start Date End Date Handy Elias MD [address] [place] [address] PCP - General Internal Medicine 11/17/12 documented as of this encounter
--- OUTSIDE RECORDS SUMMARY | 2024-04-09 13:52 | XMS_ITS | Encounter Summary ---
Author Organization [employer] Address [address] [facility] 7 [place] [address] Care Team Providers Care Registered Nurse Bone Marrow Transplant Name Role Phone Handy Elias MD Primary Care Provider [phone] Reason for Visit * Reason Onset Date Comments Med Refill 09/18/2023 Encounter Details Date Type Department Care Team (Late st Contact Info) Description 09/18/2023 Telephone [facility] MEDICINE [address] [place] [address] Handy Elias MD [address] [place], [place] [phone] Med Refill Social History Tobacco Use Types [...] refill : Zolpidem To be sent to: [facility]/pharmacy #[id number] - [place] - [address] [place] [address] [address], [place] [address] documented in this encounter Plan of Treatment Upcoming Encounters Date Type Department Care Team (Late st Contact Info) Description 05/08/2024 2:00 PM EDT Office Visit [facility] MED & PEDS [address] [place] [address] Handy Elias MD [address] [place] [address] 05/25/2024 3:00 PM EDT Telemedicine [facility] MED & PEDS [address] [place] [address] Tessa Cox RN 505 [place] [address] documented as of this encounter Visit Diagnoses Not on filedocumented in this encounter Care Teams Registered Nurse Bone Marrow Transplant Relationship Specialty Start Date End Date Handy Elias MD [address] [place] [address] PCP - General Internal Medicine 11/17/12 documented as of this encounter
--- OUTSIDE RECORDS SUMMARY | 2024-04-09 13:52 | XMS_ITS | Encounter Summary ---
Author Organization [employer] Address [address] [facility] 7 [place] [address] Care Team Providers Care Alarm Installer Name Role Phone Handy Elias MD Primary Care Provider [phone] Reason for Visit * Reason Onset Date Comments Med Refill 04/08/2024 Encounter Details Date Type Department Care Team (Late st Contact Info) Description 04/08/2024 Refill [facility] MEDICINE [address] [place] [address] Handy Elias MD 505 [place], [place] [phone] Chronic pain syndrome Social History Tobacco Use [...] encounter Miscellaneous Notes * Telephone Encounter - Rahat Lemos - 04/08/2024 8:36 AM EST TC from pt requesting medication refill. Medications needing refill : oxyCODONE (Roxicodone) 5 MG immediate release tablet To be sent to: [facility]/pharmacy #[id number] - [place] - [address] [facility] [address], [place] [address] documented in this encounter Plan of Treatment Upcoming Encounters Date Type Department Care Team (Late st Contact Info) Description 05/08/2024 2:00 PM EDT Office Visit [facility] MED & PEDS 505 [place] [address] Handy Elias MD [address] [place] [address] 05/25/2024 3:00 PM EDT Telemedicine [facility] MED & PEDS 505 [place] [address] Tessa Cox, MARITA 505 [place] [address] documented as of this encounter Visit Diagnoses Diagnosis Chronic pain syndrome documented in this encounter Care Teams Alarm Installer Relationship Specialty Start Date End Date Handy Elias MD 505 [place] [address] PCP - General Internal Medicine 11/17/12 documented as of this encounter
--- OUTSIDE RECORDS SUMMARY | 2024-04-09 13:52 | XMS_ITS | Encounter Summary ---
Author Organization [employer] Address [address] [place] [address] 7 [place] [address] Care Team Providers Care Cutter Operator Asbestos Shingle Name Role Phone Handy Elias MD Primary Care Provider [phone] Reason for Visit * Reason Onset Date Comments Med Refill 07/30/2023 Encounter Details Date Type Department Care Team (Late st Contact Info) Description 07/30/2023 Telephone [facility] MEDICINE [address] [place] [address] Handy Elias MD 505 [place], [place] [phone] Med Refill Social History Tobacco Use Types [...] to: [facility]/pharmacy #[id number] - [place] - [address] [place] [address] AT [address], [place] [address] documented in this encounter Plan of Treatment Upcoming Encounters Date Type Department Care Team (Late st Contact Info) Description 05/08/2024 2:00 PM EDT Office Visit [facility] MED & PEDS [address] [facility] [place] [address] Handy Elias MD 505 [place] [address] 05/25/2024 3:00 PM EDT Telemedicine [facility] MED & PEDS 505 [place] [address] Tessa Cox RN 505 [place] [address] documented as of this encounter Visit Diagnoses Not on filedocumented in this encounter Care Teams Cutter Operator Asbestos Shingle Relationship Specialty Start Date End Date Handy Elias MD 505 [place] [address] PCP - General Internal Medicine 11/17/12 documented as of this encounter
--- OUTSIDE RECORDS SUMMARY | 2024-04-09 13:52 | XMS_ITS | Encounter Summary ---
Author Organization [employer] [facility] Address [address] [place] [address] Care Team Providers Care Senior Account Director Name Role Phone Handy Elias MD Primary Care Provider [phone] Encounter Details Date Type Department Care Team (Late st Contact Info) Description 07/16/2022 Orders Only [facility] MED & PEDS [address] [place] [address] Nataliia Santos LPN Social History Tobacco Use [...] [facility] [address] [place] [address] Handy Elias MD 505 [place] [address] 05/25/2024 3:00 PM EDT Telemedicine [facility] MED & PEDS [address] [place] [address] Tessa Cox, MARITA [address] [place], [place] [phone] documented as of this encounter Visit Diagnoses Not on filedocumented in this encounter Care Teams Senior Account Director Relationship Specialty Start Date End Date Handy Elias MD [address] [place] [address] PCP - General Internal Medicine 11/17/12 documented as of this encounter
--- OUTSIDE RECORDS SUMMARY | 2024-04-09 13:52 | XMS_ITS | Encounter Summary ---
Author Organization [employer] Address [address] [facility] [address] 7[address] [place] [address] Care Team Providers Care Hobber Name Role Phone Handy Elias MD Primary Care Provider [phone] Encounter Details Date Type Department Care Team [...] 2:00 PM EDT Office Visit [facility] MED & PEDS [address] [place] [address] Handy Elias MD [address] [place] [address] 05/25/2024 3:00 PM EDT Telemedicine [facility] MED & PEDS 505 [place] [address] Tessa Cox RN 505 [place] [address] documented as of this encounter Visit Diagnoses Not on filedocumented in this encounter Care Teams Hobber Relationship Specialty Start Date End Date Handy Elias MD [address] [place] [address] PCP - General Internal Medicine 11/17/12 documented as of this encounter
--- OUTSIDE RECORDS SUMMARY | 2024-04-09 13:52 | XMS_ITS | Encounter Summary ---
Author Organization [employer] Address [address] [facility] 7 [place] [address] Care Team Providers Care Rail Engineer Name Role Phone Handy Elias MD Primary Care Provider [phone] Reason for Visit * Reason Onset Date Comments Med Refill 06/12/2022 Encounter Details Date Type Department Care Team (Late st Contact Info) Description 06/12/2022 Telephone [facility] MEDICINE 230 [place] [address] Handy Elias MD [address] [place], [place] [phone] Med Refill Social History Tobacco Use Types [...] PM EDT Office Visit [facility] MED & PEDS [address] [place] [address] Handy Elias MD [address] [place] [address] 05/25/2024 3:00 PM EDT Telemedicine [facility] MED & PEDS 505 [place] [address] Tessa Cox RN 505 [place] [address] documented as of this encounter Visit Diagnoses Not on filedocumented in this encounter Care Teams Rail Engineer Relationship Specialty Start Date End Date Handy Elias MD [address] [place] [address] PCP - General Internal Medicine 11/17/12 documented as of this encounter
--- OUTSIDE RECORDS SUMMARY | 2024-04-09 13:52 | XMS_ITS | Encounter Summary ---
Author Organization [employer] Address [address] [facility] 7 [place] [address] Care Team Providers Care Solar Project Coordination Specialist Name Role Phone Handy Elias MD Primary Care Provider [phone] Reason for Visit * Reason Onset Date Comments Imaging 03/20/2024 Encounter Details Date Type Department Care Team ([facility] st Contact Info) Description 03/20/2024 Telephone [facility] MED & PEDS [address] [place], [place] [phone] Handy Elias MD 505 [place], [place] [phone] Imaging Social History Tobacco Use Types Packs/Day [...] encounter Miscellaneous Notes * Telephone Encounter - Tabitha Saucedo - 03/26/2024 12:13 PM EST Good morning Br. Elias, ENT referral will require notes before faxing to office. An addendum canbe added to the last visit. Thank you. * Telephone Encounter - Erin Meng RN [...] week and is planning on going to [facility] for XR.Informed I would send request [...] [facility] MED [facility] [address] [place] [address] Handy Elias MD [address] [place] [address] 05/25/2024 3:00 PM EDT Telemedicine [facility] MED & PEDS [address] [place] [address] Tessa Cox, MARITA 505 [place] [address] documented as of this encounter Visit Diagnoses Not on filedocumented in this encounter Care Teams Solar Project Coordination Specialist Relationship Specialty Start Date End Date Handy Elias MD 505 [place] [address] PCP - General Internal Medicine 11/17/12 documented as of this encounter
--- OUTSIDE RECORDS SUMMARY | 2024-04-09 13:52 | XMS_ITS | Encounter Summary ---
Author Organization [employer] Address [address] [facility] 7 [place] [address] Care Team Providers Care Day Camp Counselor Name Role Phone Handy Elias MD Primary Care Provider [phone] Reason for Visit * Reason Onset Date Comments Med Refill 03/10/2024 Encounter Details Date Type Department Care Team (Late st Contact Info) Description 03/10/2024 Refill [facility] MEDICINE [address] [place] [address] Handy Elias MD 505 [place], [place] [phone] Chronic pain syndrome Social History Tobacco Use [...] immediate release tablet To be sent to: [facility]/pharmacy #[id number] - [place] - [address] [address], [place] [address] documented in this encounter Plan of Treatment Upcoming Encounters Date Type Department Care Team (Late st Contact Info) Description 05/08/2024 2:00 PM EDT [facility]EDS [address] [place] [address] Handy Elias MD 505 [place] [address] 05/25/2024 3:00 PM EDT Telemedicine [facility] MED & PEDS [address] [place] [address] Tessa Cox RN 505 [place] [address] documented as of this encounter Visit Diagnoses Diagnosis Chronic pain syndrome documented in this encounter Care Teams Day Camp Counselor Relationship Specialty Start Date End Date Handy Elias MD 505 [place] [address] PCP - General Internal Medicine 11/17/12 documented as of this encounter
--- OUTSIDE RECORDS SUMMARY | 2024-04-09 13:52 | XMS_ITS | Clinical Summary ---
Author Organization [employer] Address [address] [place] [address] 7 [place] [address] Care Team Providers Care Tool Grinder Set Up Operator Gear Name Role Phone Handy Elias MD Primary Care Provider [phone] Allergies Active Allergy Reactions Criticality Noted Date [...] needed at bedtime for sleep. 30 capsule Active dicyclomine (Bentyl) 10 MG capsuleIndicat ions:Left [...] opioid reversal. 2 each 1 025 Active zolpidem (Ambien) 10 MG tabletIndicati ons:Primary insomnia TAKE 1 TABLET BY MOUTH AT BEDTIME NEEDED FOR SLEEP 30 tablet 025 Active oxyCODONE (Roxicodone) 5 MG immediate release tabletIndicati ons:Chronic pain syndrome Take 1 tablet (5 mg) by mouth every 4 (four) hours if needed for severe pain for up to 28 days. 168 tablet 025 2024 Active zolpidem (Ambien) 10 MG tabletIndicati ons:Primary insomnia TAKE 1 TABLET BY MOUTH EVERY DAY AT BEDTIME NEEDED FOR SLEEP 30 tablet 024 2024 Discontinued oxyCODONE (Roxicodone) 5 MG immediate release tabletIndicati ons:Chronic pain syndrome Take 1 tablet (5 mg) by mouth every 4 (four) hours if needed for severe pain for up to 28 days. Do not start before March 12, 2024. 168 tablet 025 2024 Discontinued(R eorder (will not trigger notification to Pharmacy)) Active Problems Problem Noted Date Diagnosed Date [...] Encounters Date Type Department Care Team Description 04/08/2024 Refill [facility] [address] [place] [address] Handy Elias MD Chronic pain syndrome 04/02/2024 Telephone [facility] [address] [place] [address] Renay Almeida, MARITA Results 03/25/2024 Orders Only [facility] [address] [place] [address] Handy Elias MD Other chronic sinusitis (Primary Dx) 03/24/2024 Telephone [facility] [address] [place] [address] Handy Elias MD Results 03/20/2024 Telephone [facility] [address] [place] [address] Handy Elias MD Imaging 03/19/2024 2:00 PM EST Office Visit [facility] [address] [place] [address] Handy Elias MD Abnormal LFTs (Primary Dx); Bruises easily; Fall, initial encounter; Other headache syndrome; SOB (shortness of breath) 03/19/2024 Travel 03/12/2024 Refill [facility] [address] [place] [address] Handy Elias MD Primary insomnia 03/10/2024 Patient Outreach [facility] [address] [place] [address] Handy Elias MD Pre-visit Planning ([facility] unable to reach [facility] ) 03/10/2024 Refill [facility] [address] [place] [address] Handy Elias MD Chronic pain syndrome 03/05/2024 3:00 PM EST Clinical Support [facility] [address] [place] [address] Tessa Cox RN Chronic pain syndrome 03/05/2024 Refill [facility] [address] [place], [place] [phone] Tessa Cox RN Chronic pain syndrome 03/05/2024 Travel 02/14/2024 Refill [facility] [address] [place] [address] Handy Elias MD Primary insomnia 02/11/2024 Refill [facility] [address] [place] [address] Handy Elias MD Chronic pain syndrome 02/09/2024 Refill [facility] [address] [place] [address] Handy Elias MD Deficiency of other specified B group vitamins 2024 Telephone [facility] [address] [place] [address] Handy Elias MD Referral 01/14/2024 Refill [facility] [address] [place] [address] Tessa Cox RN Chronic pain syndrome 01/14/2024 Telephone [facility] [address] [place] [address] Handy Elias MD Med Refill 01/14/2024 Refill [facility] [address] [place] [address] Handy Elias MD Primary insomnia 01/10/2024 Refill [facility] [address] [place] [address] Handy Elias MD Anxiety from Last 3 Months Immunizations Name Administration Dates Next Due Influenza Injectable Quadriv alant Preservative Free IIV4 MDCK 11/28/2019 Influenza injectable quadriv alent IIV4 with preservative 11/18/2017,12/19/2015 Influenza injectable quadriv alent preservative free 01/03/2021,11/20/2016,12/08/2014 Influenza, IIV3, injectable 12/03/2013 Influenza, Split (incl. dameon fied surface antigen) 11/24/2012,12/26/2011 Moderna Covid-19 Vaccine + 03/23/2021 Pfizer Covid-19 Vaccine 12+ 10/03/2020, 1 [...] 2:00 PM EDT Office Visit [facility] [address] [place] [address] Handy Elias MD [address] [place] [address] 05/25/2024 3:00 PM EDT Telemedicine [facility] [address] [place] [address] Tessa Cox RN [address] [place] [address] Health Maintenance Due Date Last Done Comments [...] Recently Relevant to Health Maintenance Results * US Abdomen Complete (03/27/2024 11:50 AM EST) Anatomical Region Laterality Modality Abdomen Ultrasound 03/27/2024 11:5 0 AM EST Narrative 03/27/2024 11:51 AM EST ? [facility] ?[address] ? [place] [address] ? Ultrasound Report ? Signed ? Patient: Srinivas,Henri F ?MR#: [id number] ?? 79 ? : 1960 ?Acct:[id number] ? Age/Sex: 64 / M ?ADM Date: 03/25/24 ? Loc: HO.HMGCX ? Attending Dr: Handy Elias MD ? Ordering Physician: Handy Elias MD ?? Date of Service: 01/29/25 ?? Procedure(s): US abdomen complete ?? Accession Number(s): [id number] ? cc: Handy Elias MD ? CLINICAL [...] signed by Andrey Santamaria MD in OV> ?03/27/24 1150 ? DD/ 1150 ? TD/TT: 03/27/24 1150 ? Social Work Manager: ? Procedure Note Kiran, Image - 03/27/2024 [facility] Primary [facility] [address] [place] [address] Ultrasound Report Signed Patient: Henri Espino FMR#: [id number] 79 : 8Acct:[id number] Age/Sex: 64 / MADM Date: 03/25/24 Loc: .HMGX Attending Dr: Handy Elias MD Ordering Physician: Handy Elias MD Date of Service: 03/25/24 Procedure(s): US abdomen complete Accession Number(s): [id number] cc: Handy Elias MD CLINICAL HISTORY: Elevated [...] 03/27/24 1150 DD/ 1150 TD/TT: 03/27/24 1150 Social Work Manager: us Handy Elias MD IMG US PROCEDURES Final Res ult * CT Head w/o Contrast (03/23/2024 4:26 PM EST) Anatomical Region Laterality Modality Head, Neck Computed Tomogra phy 03/23/2024 4:26 PM EST Narrative 03/24/2024 7:12 AM EST ? [facility] ?[address] ?[place] [address] ? CT Scan Report ? Signed ? Patient: Srinivas,Henri F ?MR#: [id number] ?? 79 ? : 1960 ?Acct:[id number] ? Age/Sex: 64 / M ?ADM Date: 03/23/24 ? Loc: HO.CT ? Attending Dr: Handy Elias MD ? Ordering Physician: Handy Elias MD ?? Date of Service: 03/23/24 ?? Procedure(s): CT head/brain wo IV con ?? Accession Number(s): [id number] ? cc: Handy Elias MD ? Report Number: ?? [id number]: Total DLP = ??853.00 mGy-cm ?? EXAMINATION: [...] DD/ 1626 ? TD/TT: 03/23/24 1743 ? Social Work Manager: MSM ? Procedure Note Donanneliese, Image - 03/24/[address] [place] [address] [address] Scan Report Signed Patient: Henri Espino FMR#: [id number] 79 : 8Acct:[id number] Age/Sex: 64 / MADM Date: 03/23/24 Loc: HO.CT Attending Dr: Handy Elias MD Ordering Physician: Handy Elias MD Date of Service: 03/23/24 Procedure(s): CT head/brain wo IV con Accession Number(s): [id number] cc: Handy Elias MD Report Number: [id number]: Total DLP = 853.00 mGy-cm EXAMINATION: CT [...] 03/24/24 0709 DD/ 1626 TD/TT: 03/23/24 1743 Social Work Manager: ANTHONY us Handy Elias MD IMG CT PROCEDURES Final Res ult * (ABNORMAL) CBC auto differential (03/23/2024 4:24 PM EST) White Blood Count 9.8 4.8 - 10.8 X10*3/uL [facility] Red Blood Count 5.06 4.60 - 5.80 X10*6/uL [facility] Hemoglobin 15.9 14.0 - 18.0 g/dl [facility] Hematocrit 47.7 42.0 - 52.0 % [facility] Mean Corpuscular Volume 94.3 80.0 - 98.0 fL [facility] Mean Corpuscular Hemoglobin 31.4 27.0 - 33.0 pg [facility] Mean Corpuscular HGB Conc 33.3 31.0 - 36.0 g/dl [facility] Red Cell Distribution Width 14.0 11.0 - 16.0 % [facility] Platelet Count 293 160 - 400 X10*3/uL [facility] Mean Platelet Volume 9.9 9.4 - 12.4 fL [facility] Neutrophils Percent Auto 65.0 45 - 73 % [facility] Imm Gran Pct Auto 2.4(H) 0.0 - 0.4 % [facility] Lymphocytes Percent Auto 19.0(L) 20 - 40 % [facility] Monocytes Percent Auto 10.3 2 - 11 % [facility] Eosinophils Percent Auto 2.6 0 - 4 % [facility] Basophils Percent Auto 0.7 0 - 2 % [facility] NRBC Pct Auto 0.0 0.0 - 0.2 /100WBC [facility] Neutrophils Absolute Auto 6.4 2.0 - 8.3 x10*3/uL [facility] Imm Gran Abs Auto 0.23(H) 0.00 - 0.03 X10*3/uL [facility] Lymphocytes Absolute Auto 1.9 1.2 - 4.9 X10*3/uL [facility] Monocytes Absolute Auto 1.0 0.1 - 1.2 X10*3/uL [facility] Eosinophils Absolute Auto 0.3 0.0 - 0.4 X10*3/uL [facility] Basophils Absolute Auto 0.1 0.0 - 0.2 X10*3/uL [facility] NRBC Abs Auto 0.000 0.0 - 0.012 X10*3/uL [facility] Blood Venous blood specimen / Unknown 03/23/2024 4:24 PM EST 03/23/2024 4:24 PM EST us Handy Elias MD LAB BLOOD ORDERABLES Final Result [facility] [address] [place] [address] [phone] * Partial Thromboplastin Time, Activated (APTT) (03/23/2024 4:24 PM EST) Partial Thromboplastin Time 32.8 26.0 - 36.8 SEC [facility] Comment:For information rega rding the monitoring of direct thrombininhibitors, please refer to Pharmacy. Blood Venous blood specimen / Unknown 03/23/2024 4:24 PM EST 03/23/2024 4:24 PM EST us Handy Elias MD LAB BLOOD ORDERABLES Final Result Performing Organization Address [facility] Co de Phone Number [facility] [address] [place] [phone] * Prothrombin Time-INR (03/23/2024 4:24 PM EST) Prothrombin Time 11.0 10.9 - 12.4 SEC [facility] INTERNATIONAL NORM RATIO 0.9 0.9 - 1.1 [facility] Comment:INTERNATIONAL NORMAL IZED RATIO (INR) [...] BLOOD ORDERABLES Final Result Performing Organization Address [facility] Co de Phone Number [facility] [address] [place] [phone] * (ABNORMAL) Basic Metabolic Panel (03/23/2024 4:24 PM EST) Sodium 136 135 - 145 mmol/L [facility] Potassium 4.8 3.3 - 5.1 mmol/L [facility] Chloride 105 96 - 108 mmol/L [facility] Carbon Dioxide 23 22 - 29 mmol/L [facility] Anion Gap 13 12 - 20 [facility] Urea Nitrogen (BUN) 18(H) 9 - 16 mg/dL [facility] Creatinine, Serum 1.39 0.5 - 1.4 mg/dL [facility] Estimated Glomerular Filt Rate 51 [facility] Comment:Chronic Kidney Disea se: Estimated GFR < 60 mL/min/1.04p3Onhuqv Kidney Disease: Estimated GFR < 15 mL/min/1.73m2 Glucose 92 60 - 115 mg/dL [facility] Calcium 9.4 8.4 - 10.2 mg/dL [facility] Blood Venous blood specimen / Unknown 03/23/2024 4:24 PM EST 03/23/2024 4:24 PM EST us Handy Elias MD LAB BLOOD ORDERABLES Final Result [facility] [address] [place] [address] [phone] * XR Chest 2 Views (03/23/2024 3:44 PM EST) Anatomical Region Laterality Modality Chest Radiographic Ame ging 03/23/2024 3:44 PM EST Narrative 03/23/2024 5:03 PM EST ? [facility] ?[address] ?[place] [address] ?XRay Report ? Signed ? Patient: Srinivas,Henri F ?MR#: [id number] ?? 79 ? : 1960 ?Acct:[id number] ? Age/Sex: 64 / M ?ADM Date: /27/25 ? Loc: HO.CT ? Attending Dr: Handy Elias MD ? Ordering Physician: Handy Elias MD ?? Date of Service: 03/23/24 ?? Procedure(s): XR chest 2V ?? Accession Number(s): [id number] ? cc: Handy Elias MD ? EXAMINATION: [...] DD/ 1544 ? TD/TT: 03/23/24 1605 ? Social Work Manager: MSM ? Procedure Note Kiran, Image - 03/23/2024 [place] [address] XRay Report Signed Patient: Henri Espino FMR#: [id number] 79 : 8Acct:[id number] Age/Sex: 64 / MADM Date: 03/23/24 Loc: HO.CT Attending Dr: Handy Elias MD Ordering Physician: Handy Elias MD Date of Service: 03/23/24 Procedure(s): XR chest 2V Accession Number(s): [id number] cc: Handy Elias MD EXAMINATION: XR CHEST [...] by: Rasheed Jefferson MD 03/23/2024 05:00 PM [facility] Dictated By: Rasheed Jefferson MD Signed By: <Electronically signed by Rasheed Jefferson MD in OV> 03/23/24 1700 DD/ 1544 TD/TT: 03/23/24 1605 Social Work Manager: ANTHONY us Handy Elias MD IMG XR PROCEDURES Final Res ult * POCT SAL-14 Urine Drug Screen (03/05/2024 3:06 PM EST) Oxycodone Screen, Urine Positive Urine Urine specimen obtained by clean catch procedure / Unknown 03/05/2024 3:06 PM EST Narrative Tessa Cox RN - 03/05/2024 3:06 PM EST Lot# [id number] Exp: 01-31-25 us Handy Elias MD POINT [...] 5OO mg/dL 01/01/2022 11:4 4 AM EST Historical Provider HISTORICAL/NON ORDERABLE LABS Final Result CONVERTED LEGACY LABS * Colonoscopy (05/28/2013) Colonoscopy Performed Historical Provider HEALTH MAINTENANCE Final Result from Last 3 Months or Most Recently Relevant to Health [place] [id number] [facility] MED CARE Care Teams Tool Grinder Set Up Operator Gear Relationship Specialty Start Date End Date Hadny Elias MD [address] [place] [phone] PCP - General Internal Medicine 11/17/12
--- OUTSIDE RECORDS SUMMARY | 2024-04-09 13:52 | XMS_ITS | Continuity of Care Document ---
Author Organization [facility] Address [address] [place] [phone] Phone Care Team Providers Care Sourcing Engineer Name Role Phone Adria LACKEY, RVT, LEÓN, [...] (unknown strength) Not Available - Active VITAMIN [id number] ACID (unknown strength) Not Available - Active [...] E&M Established 15 Mins [facility], [address] [place] [address] Dr Arshad [address] [address], [id number], [place] tel:[phone] CVR - [facility] Cramp and spasmRestless legs syndromeEssent ial (primary) hypertensionPa in in left lower legPain in left legLocalized edema 4 Adria LACKEY, RVT, LEÓN Torres. [address] [place] [address], [place], [place], [id number] , [place]. tel:[phone] Referring Provider: Handy Mckeon, [address] [place] [address], [address]. tel:[phone] [facility], [address] [place] [address] Dr Arshad [address] [address], [place], [id number], [place] tel:[phone] CVR - [facility] Encounter for follow-up examination after completed treatment for conditions other than malignant neVaricose veins of right lower extremity with pain 3 Asim LACKEY FACS RVT LEÓN [place]. [address] [place] [address], [place], [address], [place]. tel:[phone] Referring Provider: Handy Mckeon, [address], [address]. tel:[phone] [place] [facility], [address] [place] [address] Dr Arshad [address] [address], [place], [id number], [place] tel:[phone] CVR - [place] [facility] [place] Varicose veins of right lower extremity with other complications Jan-0 3 Doreen De Paz . [address] [facility], [place] [address], [place], [place], [id number] , [place]. tel:[phone] Referring Provider: Handy Mckeon, [address], [address]. tel:[phone] [place] [facility], [address] [place] [address] Dr Arshad [address] [address], [id number], [place] tel:[phone] CVR - [place] Varicose veins of right lower extremity with other complications 3 Asim LACKEY FACS Ralf [place]. [address] [place] [address], [place], [address], [place]. [phone] Referring Provider: Handy Mckeon, [address] [place] [address], [address]. tel:[phone] Office/Outpt E&M Established 25 Mins [facility], [address] [place] [address] Dr Arshad [address] [address], [id number], [place] tel:[phone] CVR - [place] [facility] [place] Chronic venous hypertension (idiopathic) with other complications of bilateral lower extremity Nov- 3 Asim LACKEY FACS [place]. [address] [place] [address], [place], [address], [place]. tel:[phone] Referring Provider: Handy Mckeon, [address], [address]. tel:[phone] Office/Outpt E&M Established 10 Mins - [facility], [address] [place] [address] Dr Arshad [address] [address], [id number], [place] tel:[phone] CVR - [place] [facility] [place] Venous insufficiency (chronic) (peripheral) Apr-2 6-202 3 Asim LACKEY FACS T [facility]. [facility] [facility], [place] [address], [place], [address], [place]. tel:[phone] Referring Provider: Handy Mckeon, [address] [place] [address], [address]. tel:[phone] Office/Outpt E&M Established 15 Mins [facility], [address] [place] [address] [address] [address], [place], [id number], [place] [phone] CVR - [place] Venous insufficiency (chronic) (peripheral) 3 Asim LACKEY FACS [facility]. [address] [place] [address], [place], [address], [place]. [phone] Referring Provider: Handy Mckeon, [address] [place] [address], [address]. tel:[phone] [place] [facility], [address] [place] [address] Dr Arshad [address], [place], [id number], [place] tel:[phone] CVR - [place] Venous insufficiency (chronic) (peripheral) 3 Asim LACKEY [facility]. [address] [place] [address], [place] [address], [place], [address], [place]. [phone] Referring Provider: Blanka Dailey MD FACS [facility], [address] [place] [address], [place], [address]. tel:[phone] Office/Oupt E&M New Pt 30 Mins [facility], [address] [place] [address] Dr Arshad [address] [address], [id number], [place] tel:[phone] CVR - [place] Venous insufficiency (chronic) (peripheral)Lo calized edemaRestless legs syndromeEssent ial (primary) hypertensionPr uritus, unspecifiedFla il joint, unspecified jointPain in right legPain in left legPain in right lower legPain in left lower legCramp and spasm 3 Asim LACKEY FACS RVT RPTEREZA [place]. [address] [facility], [address], [place], [address], [place]. tel:[phone] Referring Provider: Blanka Dailey MD FACS RVT [facility], [address], [place], [address]. tel:[phone] Family History Family Member Type Diagnosis Age At Onset No Information Payers Payer name Insurance type Covered constitution party ID Authoriza tion(s) Medicare BIANKA MB [id number] BCBS BIANKA [id number] Social History Type Description Quantity Date Captured [...]
--- OUTSIDE RECORDS SUMMARY | 2024-04-09 13:52 | XMS_ITS | Encounter Summary ---
Author Organization [employer] Address [address] 7 [place] [address] Care Team Providers Care Chair Mender Name Role Phone Handy Elias MD Primary Care Provider [phone] Reason for Visit * Reason Onset Date Comments Medication Question 02/07/2022 Encounter Details Date Type Department Care Team ([facility] st Contact Info) Description 02/07/[address] [facility] MEDICINE [address] [place] [address] Handy Elias MD [address] [place], [place] [phone] Medication Question Social History Tobacco Use Types [...] a message for clarification. Please contact at [phone] documented in this encounter Plan of Treatment Upcoming Encounters Date Type Department Care Team ([facility] st Contact Info) Description 05/08/2024 2:00 PM EDT Office Visit [facility] [address] [place] [address] Handy Elias MD [address] [place] [address] 05/25/2024 3:00 PM EDT Telemedicine [facility] [address] [place] [address] Tessa Cox, MARITA [address] [place] [address] documented as of this encounter Visit Diagnoses Not on filedocumented in this encounter Care Teams Chair Mender Relationship Specialty Start Date End Date Handy Elias MD [address] [place] [address] PCP - General Internal Medicine 11/17/12 documented as of this encounter
--- OUTSIDE RECORDS SUMMARY | 2024-04-09 13:52 | XMS_ITS | Encounter Summary ---
Author Organization [employer] Address [address] [place] [address] 7 [place] [address] Care Team Providers Care Senior Systems Analyst Name Role Phone Handy Elias MD Primary Care Provider [phone] Encounter Details Date Type Department Care Team (Late st Contact Info) Description 2022 Abstract [facility] MEDICINE [address] [place], [place] [phone] ProviderMelanie MD Social History Tobacco Use Types [...] Description 05/08/2024 2:00 PM EDT Office Visit [facility]EDS [address] [place], [place] [phone] Handy Elias MD [address] [place], [place] [phone] 05/25/2024 3:00 PM EDT Telemedicine [facility] MED [facility] PEDS [address] [place] [address] Tessa Cox RN [address] [place] [address] documented as of this encounter Visit Diagnoses Not on filedocumented in this encounter Care Teams Senior Systems Analyst Relationship Specialty Start Date End Date Handy Elias MD [address] [place] [address] PCP - General Internal Medicine 11/17/12 documented as of this encounter
--- OUTSIDE RECORDS SUMMARY | 2024-04-09 13:52 | XMS_ITS | Encounter Summary ---
Author Organization [facility] Address [address] [place] [address] Phone Care Team Providers Care Livestock Buyer Name Role Phone Handy Elias MD Primary Care Provider [phone] Encounter Details Date Type Department Care Team (Late st Contact Info) Description 2022 Telephone [facility] [address] [place] [address] Christie Leone Social History Tobacco [...] on filedocumented in this encounter Care Teams Livestock Buyer Relationship Specialty Start Date End Date Handy Elias MD PCP - General Internal Medicine 10/19/20 documented as of this encounter
--- OUTSIDE RECORDS SUMMARY | 2024-04-09 13:52 | XMS_ITS | Encounter Summary ---
Author Organization [employer] Address [address] [place] [address] Care Team Providers Care Maintenance Service Dispatcher Name Role Phone Handy Elias MD Primary Care Provider [phone]- [phone] Reason for Visit * Reason Onset Date Comments Reschedule 04/01/2023 Encounter Details Date Type Department Care Team (Late st Contact Info) Description 04/01/2023 Telephone [facility] MEDICINE 230 [place] [address] Handy Elias MD 505 [place] [address] Reschedule Social History Tobacco Use Types Packs/Day [...] Phillip from [employer] requesting r/s 04/04/2023 appt, commercial lines underwriter attempted to schedule no availability. documented in this encounter Plan of Treatment Upcoming Encounters Date Type Department Care Team (Late st Contact Info) Description 05/08/2024 2:00 PM EDT Office Visit [facility] MED & PEDS 505 [place] [address] Handy Elias MD 505 [place] [address] 05/25/2024 3:00 PM EDT Telemedicine [facility] MED & PEDS 505 [place] [address] Tessa Cox RN 505 [place] [address] documented as of this encounter Visit Diagnoses Not on filedocumented in this encounter Care Teams Maintenance Service Dispatcher Relationship Specialty Start Date End Date Handy Elias MD 505 [place] [address] PCP - General Internal Medicine 11/17/12 documented as of this encounter
--- OUTSIDE RECORDS SUMMARY | 2024-04-09 13:52 | XMS_ITS | Encounter Summary ---
Author Organization [employer] Address 75 [facility] 7 [place] [address] Care Team Providers Care Boiling Tub Operator Name Role Phone Handy Elias MD Primary Care Provider [phone] Reason for Visit * Reason Onset Date Comments Med Refill 11/15/2023 Encounter Details Date Type Department Care Team (Late st Contact Info) Description 11/15/2023 Telephone [facility] MEDICINE [address] [place] [address] Handy Elias MD 505 [place], [place] [phone] Med Refill Social History Tobacco Use Types [...] 10 MG tablet To be sent to: [facility]/pharmacy #[id number] - [place], [place] - [address] [facility] [address] [place] [address] documented in this encounter Plan of Treatment Upcoming Encounters Date Type Department Care Team (Late st Contact Info) Description 05/08/2024 2:00 PM EDT Office Visit [facility] MED & PEDS 505 [place] [address] Handy Elias MD 505 [place] [address] 05/25/2024 3:00 PM EDT Telemedicine [facility] MED & PEDS 505 [place] [address] Tessa Cox RN 505 [place] [address] documented as of this encounter Visit Diagnoses Not on filedocumented in this encounter Care Teams Boiling Tub Operator Relationship Specialty Start Date End Date Handy Elias MD 505 [place] [address] PCP - General Internal Medicine 11/17/12 documented as of this encounter
--- OUTSIDE RECORDS SUMMARY | 2024-04-09 13:52 | XMS_ITS | Encounter Summary ---
Author Organization [employer] Address 75 [facility] 7 [place] [address] Care Team Providers Care Tongue Presser Name Role Phone Handy Allen MD Primary Care Provider [phone] Reason for Visit * Reason Onset Date Comments Results 03/24/2024 Encounter Details Date Type Department Care Team ([facility] st Contact Info) Description 03/24/2024 Telephone [facility] MEDICINE 230 [place] [address] Handy Allen MD 505 [place], [place] [phone] Results Social History Tobacco Use Types Packs/Day [...] Blood test Date when done: 03/23 Facility: [facility] Pt states Prefers to Talk to PCP Contact pt at [phone] documented in this encounter Plan of Treatment Upcoming Encounters Date Type Department Care Team ([facility] st Contact Info) Description 05/08/2024 2:00 PM EDT Office Visit [facility] MED & PEDS 505 [place] [address] Handy Allen MD 505 [place] [address] 05/25/2024 3:00 PM EDT Telemedicine [facility] MED & PEDS 505 [place] [address] Tessa Cox RN 505 [place] [address] documented as of this encounter Visit Diagnoses Not on filedocumented in this encounter Care Teams Tongue Presser Relationship Specialty Start Date End Date Handy Allen MD 505 [place] [address] PCP - General Internal Medicine 11/17/12 documented as of this encounter
--- OUTSIDE RECORDS SUMMARY | 2024-04-09 13:52 | XMS_ITS | Encounter Summary ---
Author Organization [employer] Address 75 [facility] 7 [place] [address] Care Team Providers Care Groundskeeping Maintenance Worker Name Role Phone Handy Elias MD Primary Care Provider [phone] Encounter Details Date Type Department Care Team (Late st Contact Info) Description 11/15/2023 Orders Only [facility] MED & PEDS 505 [place], [place] [phone] Handy Elias MD 505 [place] [address] Social History Tobacco Use Types Packs/Day Years [...] Description 05/08/2024 2:00 PM EDT Office Visit [facility] MED & PEDS 505 [place] [address] Handy Elias MD 505 [place] [address] 05/25/2024 3:00 PM EDT Telemedicine [facility] MED & PEDS 505 [place] [address] Tessa Cox, MARITA 505 [place] [address] documented as of this encounter Visit Diagnoses Not on filedocumented in this encounter Care Teams Groundskeeping Maintenance Worker Relationship Specialty Start Date End Date Handy Elias MD 505 [place] [address] PCP - General Internal Medicine 11/17/12 documented as of this encounter
--- OUTSIDE RECORDS SUMMARY | 2024-04-09 13:52 | XMS_ITS | Encounter Summary ---
Author Organization [employer] Address [address] [place] [address] 7 [place] [address] Care Team Providers Care Feed Mill Tender Name Role Phone Handy Elias MD Primary Care Provider [phone]- [phone] Encounter Details Date Type Department Care Team (Late Contact Info) Description 12/12/2022 Orders Only [facility] MED & PEDS 505 [place], [place] [phone] Handy Elias MD 505 [place], [place] [phone] Vitamin B12 deficiency (Primary Dx) Social History [...] Description 05/08/2024 2:00 PM EDT Office Visit [facility] MED & PEDS 505 [place], [place] [phone] Handy Elias MD 505 [place], [place] [phone] 05/25/2024 3:00 PM EDT Telemedicine [facility] MED & PEDS 505 [place] [address] Tessa Cox RN 505 [place] [address] documented as of this encounter Visit Diagnoses Diagnosis Vitamin B12 deficiency- Primary Other B-complex deficiencies documented in this encounter Care Teams Feed Mill Tender Relationship Specialty Start Date End Date Handy Elias MD 505 [place] [address] PCP - General Internal Medicine 11/17/12 documented as of this encounter
--- OUTSIDE RECORDS SUMMARY | 2024-04-09 13:52 | XMS_ITS | Encounter Summary ---
Author Organization [employer] Address [address] [place] [address] 7 [place] [address] Care Team Providers Care Lead Database Developer Name Role Phone Handy Elias MD Primary Care Provider [phone]- [phone] Encounter Details Date Type Department Care Team (Late Contact Info) Description 12/26/2022 Abstract [facility] MEDICINE 230 [place], [place] [phone] Handy Elias MD 505 [place], [place] [phone] Social History Tobacco Use Types Packs/Day Years [...] 2:00 PM EDT Office Visit [facility] MED & PEDS 505 [place], [place] [phone] Handy Elias MD 505 [place], [place] [phone] 05/25/2024 3:00 PM EDT Telemedicine [facility] MED & PEDS 505 [place], [place] [phone] Tessa Cox, MARITA 505 [place] [address] documented as of this encounter Visit Diagnoses Not on filedocumented in this encounter Care Teams Lead Database Developer Relationship Specialty Start Date End Date Handy Elias MD 505 [place] [address] PCP - General Internal Medicine 11/17/12 documented as of this encounter
--- OUTSIDE RECORDS SUMMARY | 2024-04-09 13:52 | XMS_ITS | Encounter Summary ---
Author Organization [employer] Address [address] [place] [address] Care Team Providers Care Director Of In Service Education Name Role Phone Handy Elias MD Primary Care Provider [phone]- [phone] Reason for Visit * Reason Onset Date Comments Call Back Request 05/14/2023 Encounter Details Date Type Department Care Team (Late st Contact Info) Description 05/14/2023 Telephone [facility] MEDICINE 230 [place] [address] Handy Elias MD 505 [place], [place] [phone] Call Back Request Social History Tobacco Use [...] [facility] MED & PEDS 505 [place] [address] Handy Elias MD 505 [place] [address] 05/25/2024 3:00 PM EDT Telemedicine [facility] MED & PEDS 505 [place] [address] Tessa Cox RN 505 [place] [address] documented as of this encounter Visit Diagnoses Not on filedocumented in this encounter Care Teams Director Of In Service Education Relationship Specialty Start Date End Date Handy Elias MD 505 [place] [address] PCP - General Internal Medicine 11/17/12 documented as of this encounter
--- OUTSIDE RECORDS SUMMARY | 2024-04-09 13:52 | XMS_ITS | Encounter Summary ---
Author Organization [employer] Address [address] [place] [address] Care Team Providers Care Mortgage Loan Specialist Name Role Phone Handy Elias MD Primary Care Provider [phone]- [phone] Reason for Visit * Reason Onset Date Comments Call Back Request 06/19/2023 Encounter Details Date Type Department Care Team (Late st Contact Info) Description 06/19/2023 Telephone [facility] MEDICINE 230 [place] [address] Handy Elias MD 505 [place] [address] Call Back Request Social History Tobacco Use [...] 2:00 PM EDT Office Visit [facility] MED & PEDS [address] [place] [address] Handy Elias MD 505 [place] [address] 05/25/2024 3:00 PM EDT Telemedicine [facility] MED & PEDS [address] [place] [address] Tessa Cox RN 505 [place] [address] documented as of this encounter Visit Diagnoses Not on filedocumented in this encounter Care Teams Mortgage Loan Specialist Relationship Specialty Start Date End Date Handy Elias MD 505 [place] [address] PCP - General Internal Medicine 11/17/12 documented as of this encounter
--- OUTSIDE RECORDS SUMMARY | 2024-04-09 13:52 | XMS_ITS | Clinical Summary ---
Author Organization [facility] Address [address] [facility] [place] [address] [place] [address] Phone Care Team Providers Care Building Construction Supervisor Name Role Phone Handy Elias MD Primary Care Provider +1- [phone] Allergies Active Allergy Reactions Criticality Noted Date [...] Insurance [place] Care Teams Building Construction Supervisor Relationship Specialty Start Date End Date Handy Elias MD PCP - General Internal Medicine 10/19/20
--- OUTSIDE RECORDS SUMMARY | 2024-04-09 13:52 | XMS_ITS | Encounter Summary ---
Author Organization [employer] Address [address] [place] [address] 7 [place] [address] Care Team Providers Care Audit Practice Intern Name Role Phone Handy Elias MD Primary Care Provider +1- [phone] Encounter Details Date Type Department Care Team (Late Contact Info) Description 02/02/2022 Orders Only [facility] MEDICINE 230 [place], [place] [phone] Handy Elias MD 505 [place], [place] [phone] Cold intolerance of hand (Primary Dx); Primary [...] 2:00 PM EDT Office Visit [facility] MED & PEDS 505 [place], [place] [phone] Handy Elias MD 505 [place], [place] [phone] 05/25/2024 3:00 PM EDT Telemedicine [facility] MED & PEDS 505 [place] [address] Tessa Cox, MARITA 505 [place] [address] documented as of this encounter Procedures Procedure Name Priority Date/Time Associated Diagnosis Comments TSH W/REFLEX TO FT4 Routine 03/01/2022 1 1:16 AM EST Cold intolerance of hand documented in this encounter Results * TSH W/Reflex to FT4 (03/01/2022 11:16 AM EST) TSH w/Reflex to FT4 2.35 0.40 - 4.50 mIU/L [facility] 03/01/2022 11:1 6 AM EST 03/01/2022 11:16 AM EST Handy Elias MD LAB BLOOD ORDERABLES Final Result [facility] [address] [facility], [place] [address] [employer] [place] [facility] [address] [facility], ([address]) [place] [address] documented in this encounter Visit Diagnoses Diagnosis 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
--- OUTSIDE RECORDS SUMMARY | 2024-04-09 13:52 | XMS_ITS | Encounter Summary ---
Author Organization [employer] Address [address] [place] [address] Care Team Providers Care Coal Trimmer Name Role Phone Handy Elias MD Primary Care Provider [phone] Reason for Referral * Consultation (Routine) - Authorized Specialty Diagnoses / Procedures Referred By Contnanci t Referred To Contact Otolaryngology Diagnoses Other chronic sinusitis Handy Elias MD 505 [place] [address] Phone: tel: fax: [facility] [address] Phone: tel: fax: Referral ID Status Reason Start Date Expiration Date Visits Requested Visits Authorized [id number] Authorized Specialty Services Required 03/25/2024 03/25/2025 1 1 Encounter Details Date Type Department Care Team ([facility] st Contact Info) Description 03/25/2024 Orders Only [facility] MED & PEDS 505 [place] [address] Handy Elias MD 505 [place], [place] [phone] Other chronic sinusitis (Primary Dx) Social History Tobacco Use Types [...] Upcoming Encounters Date Type Department Care Team ([facility] st Contact Info) Description 05/08/2024 2:00 PM EDT Office Visit [facility] MED & PEDS [address] [place] [address] Handy Elias MD 505 [place] [address] 05/25/2024 3:00 PM EDT Telemedicine [facility] MED & PEDS 505 [place] [address] Tessa Cox RN 505 [place] [address] Scheduled Referrals Name Type Priority Associated Diagnoses Orde r Schedule Referral to ENT Outpatient Referral Routine Other chronic sinusitis Expected: 03/25/2024 (Approximate), Expires: 03/25/2025 documented as of this encounter Visit Diagnoses Diagnosis Other chronic sinusitis- Primary documented in this encounter Care Teams Coal Trimmer Relationship Specialty Start Date End Date Handy Elias MD [address] [place] [address] PCP - General Internal Medicine 11/17/12 documented as of this encounter
--- OUTSIDE RECORDS SUMMARY | 2024-04-09 13:52 | XMS_ITS | Encounter Summary ---
Author Organization [employer] Address 75 [facility] 7 [place] [address] Care Team Providers Care Grades 7 8 Tutor Name Role Phone Handy Elias MD Primary Care Provider [phone] Reason for Visit * Reason Onset Date Comments Med Refill 01/14/2024 Encounter Details Date Type Department Care Team (Late st Contact Info) Description 01/14/2024 Telephone [facility] MEDICINE 230 [place] [address] Handy Elias MD 505 [place], [place] [phone] Med Refill Social History Tobacco Use Types [...] immediate release tablet To be sent to: [facility]/pharmacy #[id number] - [place], [place] - [address] [facility] [address] [place] [address] documented in this encounter Plan of Treatment Upcoming Encounters Date Type Department Care Team (Late st Contact Info) Description 05/08/2024 2:00 PM EDT Office Visit [facility] MED & PEDS 505 [place] [address] Handy Elias MD 505 [place] [address] 05/25/2024 3:00 PM EDT Telemedicine [facility] MED & PEDS 505 [place] [address] Tessa Cox RN 505 [place] [address] documented as of this encounter Visit Diagnoses Not on filedocumented in this encounter Care Teams Grades 7 8 Tutor Relationship Specialty Start Date End Date Handy Elias MD 505 [place] [address] PCP - General Internal Medicine 11/17/12 documented as of this encounter
[2024-04-09 17:54] LABS: Blood Urea Nitrogen 18 mg/dL (9-16); Calcium 9.6 mg/dL (8.4-10.2)
[2024-04-09 17:59] LABS: Alanine Aminotransferase 19 U/L (0-40); Albumin Level 3.8 g/dL (3.5-5.0); Alkaline Phosphatase 74 U/L (39-117); Anion Gap 13 (12-20); Aspartate Amino Transferase 22 U/L (5-37); Bilirubin Total 0.7 mg/dL (0.0-1.0); Blood Urea Nitrogen 18 mg/dL (9-16); Calcium 9.6 mg/dL (8.4-10.2); Carbon Dioxide 23 mmol/L (22-29); Chloride 108 mmol/L (96-108); Cholesterol 278 mg/dL (<200); Estimated Glomerular Filt Rate 57; Glucose Random 99 mg/dL (60-115); HDL Cholesterol 38 mg/dL (>40); LDL Cholesterol Calculated 212 mg/dL (<100); Potassium 4.1 mmol/L (3.3-5.1); Sodium 140 mmol/L (135-145); Total Protein 7.8 g/dL (6.5-8.0); Triglycerides 144 mg/dL (<150)
[2024-04-10 07:05] LABS: Estimated Average Glucose 105 mg/dL; Hemoglobin A1C 133.1708 umol/L; Hemoglobin A1c % 5.3 % (<6.0); Total Hemoglobin (HGBA1C) 3866.6018 umol/L
[2024-04-10 12:29] LABS: Complement C3 168 mg/dL (82-185)
[2024-04-10 20:12] LABS: Myeloperoxidase Antibody <1.0 AI; Proteinase 3 PR3 Antibodies <1.0 AI
[2024-04-14 14:13] LABS: Neutrophil Cyto Ab Screen NEGATIVE (NEGATIVE)
[2024-04-16 14:58] LABS: Testosterone, Total 726 ng/dL (250-1100)
== END 2024-04-09 13:49 | disposition home or self-care (01) ==
LOC: HO.HKASLDS 13:48
PROVIDERS: Visit Provider Internal Medicine Hypertension Specialist
DX: I10 Essential (primary) hypertension (principal); R53.1 Weakness; N18.9 Chronic kidney disease, unspecified; Z13.1 Encounter for screening for diabetes mellitus
CPT/HCPCS: 36415; 80053; 80061; 82310; 83036; 84402; 84403; 84520; 86021; 86036; 86160

== ENCOUNTER 2024-04-10 11:08 | Outpatient (AMB) | payer MEDICARE, SELFPAY ==
[2024-04-10 11:12] VITALS: BP 154/92; PULSE 82; O2SAT 97; BMI 37.4
--- NOTE | 2024-04-10 11:12 | A.OFFVIS_ITS ---
Vital Signs 04/10/24 11:12 Height 5 ft 11 in Weight 267 lb 13.786 oz BMI 37.4 BP 154/92 H Blood Pressure Location Rt brachial Position Sitting Pulse 82 Pulse Source Pulse Oximeter Pulse Oximetry (%) 97 Oxygen Delivery Method Room Air Intake Visit Reasons: Obstructive sleep apnea Allergies Seasonal Allergies Allergy (Verified 04/10/24 11:18) Runny Nose HPI Comments Details: The patient is a 64-year-old gentleman known sleep apnea currently on ASV, allergic rhinitis and also asthma. The patient does use a nasal pillow mask with a chinstrap. Therapy has been affecting beneficial. He does get supplies through his [employer] company [email or web address]. I will request a download from [email or web address] at this time. In the meantime he does complaint of a cough which is moderate severity in productive of sputum. He does have nasal congestion and does get allergy shots for allergic rhinitis. He has been using Flonase and has been helpful. He also takes Zyrtec and also had been on singular. Patient also complains of dyspnea on exertion. He does have a rescue inhaler but he does not have to use it. He was supposed to have pulmonary function studies but ultimately canceled. Will have to reschedule them prior to his next visit. I did provide him with the N30 mask that he can trial and see if is effective for him. Hopefully this with minimize irritation to the nostrils. 09/11/2022 the patient is here for a pulmonary follow-up visit. The patient has been having hard time with sinuses for the last 3-4 weeks. He feels significant congestion and also sinus pressure. He has taken zwve-scy-qyqdzvz therapies in addition to nasal rinsing without a significant improvement. He has been on the azithromycin 3 times a week. The patient also complains of a cough secondary to the postnasal drip. His breathing otherwise has been okay as of now. The patient denies any fevers or chills. We did check his temperature today was 99 degrees. He already tested for COVID which was negative. This point the patient will be treated for sinusitis. Start with antibiotics in addition to Afrin utjl-ynt-zzlaugb nasal spray. If he has no better he can start some prednisone. Also to note he did have chest x-ray back in 03/16/2019 demonstrating no acute lung pathology. Consider getting a sinus x-ray if he has no better. In the meantime he continues uses CPAP. CPAP therapy continues to be affecting beneficial. He does use it for more than 4 hours a night. He actually can not sleep without it. 05/17/2023 the patient is here for a pulmonary follow-up visit. He has multiple complaints. Again complaining of no sinus congestion and pressure. Second sinusitis is coming back. He typically responds well to Augmentin. He knows to stop the azithromycin if he is going to take Augmentin. The patient will need to call the office her see ENT if he continues to have persistent sinusitis issues. in the meantime the patient complains of extremity weakness. Denies any muscle pains. Just feels weak having some difficulty even getting up from the toilet. The patient also had a fall landing on his left side. He does have some pleuritic left-sided discomfort. He will have a rib series. He will be talking to his primary care doctor soon About his weakness and fall.. He does take statins. Will go ahead and check a CPK specially since going to get blood work but he needs to follow-up with his primary care doctor and should benefit from referral to physiatry Neurology. He will talk to his primary care doctor about that. Regards to the CPAP that continues to be affecting beneficial. He continues use it every night for more than 4 hours a night. 12/20/2023 the patient is here for a pulmonary follow-up visit. He complaining of worsening cough. It is productive in nature. Moderate severity. He has been waking up also worse of times of the night coughing. He is using a towel to try to clear secretions. The patient is having some coughing episodes while using his I AVAP. He did bring it in. Is not find the humidity of the temperature. Appears that he just has significant nasal congestion. He also has inflammation of the nasopharynx and also of the posterior pharynx. Also having some chest congestion. He will have a chest x-ray today. The patient is no better after the Augmentin he will provide us with a sputum culture. In the meantime the patient will continue with his current AVAP setting. His AHI is down to 1 therefore I suggested that they keep the current pressures. Although I believe with a high pressures through the AVAPS he is better off with a fullface mask. Although he likes the nasal pillows. I would encourage him to try a fullface mask future. 01/30/2024 the patient is here for a pulmonary follow-up visit. He continues to have significant nasal congestion sinus pressure postnasal drip and cough. It is bothersome to him. The patient has had a course of Augmentin without any significant improvement. He is wondering about different antibiotic. Thinking about Levaquin. Explained to him that he is having issues with bursitis and the Levaquin can potentially worsen tendinitis and bursitis. Therefore hold off on that we will try a combination of Augmentin and doxycycline. We did get a culture that was positive for Haemophilus parainfluenza. We did talk that if the patient continued to be symptomatic we can consider performing a bronchoscopy for deep cultures. But also he can follow-up with ENT since he is already established with them regarding the patient have a laryngoscopy at the bedside. In addition to that he had blood work previously. His eosinophil counts were significantly elevated. Therefore we could also consider the use of Dupixent. Will request additional blood work to see if he still candidate for that. In the meantime he is going to continue with the nasal rinsing. He is also going to start budesonide along with his Neti bottle. He will continue to use CPAP right now. He is using a fullface mask. The therapy has been affecting beneficial. She will use it for more than 4 hours a night. Will follow-up in 6 weeks to assess his progress with the therapy and will review the blood work to see if he is a candidate for Dupixent. 04/10/2024 the patient is here for pulmonary follow-up visit. Overall he is doing about the same. Still complaining of nasal congestion sinus pressure. He did well on the Augmentin doxycycline combination. Then after that he did see ENT and he was given Bactrim. They did a laryngoscopy I believe I do not have the report. And cultures were sent and I do not have those reports either. Then after you finish the antibiotics he feels like symptoms are coming back. We did talk about the concerns of multiple antibiotics in the risk of C diff colitis and resistance. Therefore, he is asking for more medications. Will go ahead and just given the doxycycline by itself. He can also uses a short course of prednisone to try to help open up the sinuses a little better. He did have a CT scan of the head because he had a fall at a gas station because he tripped on some object. He hit his head in addition to his side on the right side. He had a CT scan of the head that demonstrated significant chronic sinusitis primarily maxillary sinus and also a ethmoids retention cyst. He will be seen the ENT doctor soon he will discuss those findings with them. Patient for now continues the Neti bottle rinse with budesonide which appears to be helping and will go ahead and start him back on doxycycline. The patient did have blood work done and his eosinophils appear to be better. I am not sure if he is a good candidate for Dupixent at this time. Will have to watch and wait to see his res ponse to the ENT treatment. He does continue on allergy shots. He does get that through ENT. In addition to this he did have a chest x-ray when he fell he was evaluated. Demonstrated some new atelectasis to the lingula. Will go ahead and work on deep breathing exercises and will repeat the x-ray in 6 weeks. If the area still abnormal will request a CT scan of chest. [facility] Medical History (Updated 12/20/23 @ 13:06 by Stephen Bahena MD) Bronchitis Weakness Chest pain Atelectasis Tobacco dependence syndrome (~01/13/22) Senile hyperkeratosis (~02/21/18) Sciatica (~11/24/12) Osteoporosis (~09/20/17) Obstructive sleep apnea syndrome (~01/04/10) Low back pain (~07/14/12) Hypertension (~07/14/12) Erectile dysfunction (~11/24/12) Hypercholesterolemia (~07/14/12) Chronic kidney disease, stage 3 (~09/22/17) Chronic pain syndrome (~11/20/16) Chronic cough Chronic allergic rhinitis Hyperlipidemia JENN on CPAP Asthma-COPD overlap syndrome Dyspnea Cough Asthma Sinusitis Osteoarthritis of knees, bilateral Spondylosis of cervical joint without myelopathy Surgical History History of colonoscopy (~10/16/21) Family History Father Parkinson disease Mother Sister Obesity Hypertension Social History Household Members: Spouse Housing: House Patient Tobacco Use Status: Former Tobacco user Tobacco use type: Cigarette Cigarette Packs Per Day: 1 Years Smoked: 30 years service: No Current occupational status: unemployed Review of Systems Const Denies night sweats and Reports weight loss ENT Denies change in voice, Denies lip swelling, Denies mouth pain, Reports nasal congestion, Reports nasal discharge, Reports sinus pain, Reports sinus pressure and Denies tongue swelling Card Reports dyspnea on exertion Resp Reports chest congestion, Reports cough, Reports pain on inspiration, Reports pain with cough and Reports dyspnea on exertion GI Denies abdominal pain Musc Reports abnormal gait, Reports joint swelling, Reports limited range of motion and Reports muscle weakness Neuro Denies Neuro-related abnormal movements and Reports abnormal gait Psych Denies no additional complaints Sheldon/Lymph Denies easy bleeding and Denies lymphadenopathy Aller/Immun Denies lip swelling and Denies tongue swelling Physical Exam Vital Signs: Last Vital Signs Pulse 82 04/10/24 11:12 BP 154/92 H 04/10/24 11:12 Pulse Ox 97 04/10/24 11:12 Oxygen Delivery Method Room Air 04/10/24 11:12 BMI result Body Mass Index 37.4 HEENT Head: Yes normocephalic General nose exam: Abnormal mucous membranes and turbinates present erythematous and Nasal discharge present purulent and mucoid Throat: Yes postnasal drainage and Yes cobblestoning Eyes Alignment and Position: alignment normal Pupils: Equal, round and reactive pupils present Neck Neck: Yes normal visual inspection, Yes full ROM and Yes no lymphadenopathy Chest Chest palpation & inspection: no crepitus and tenderness Resp Auscultation: no wheezes and diminished lung sounds Cardio Rate: regular rate Rhythm: regular rhythm Heart sounds: S1 normal heart sound present and S2 normal heart sound present GI Palpation (GI): Soft to palpation and nontender Auscultation: normal bowel sounds Skin General skin exam: rashes and/or lesions noted Neuro Cranial nerves: Yes Equal, round and reactive pupils present Assessment & Plan Assessment & Plan (1) JENN on CPAP: Code(s): G47.33 - Obstructive sleep apnea (adult) (pediatric); Z99.89 - Dependence on other enabling machines and devices Category: Medical (2) Asthma-COPD overlap syndrome: Code(s): J44.9 - Chronic obstructive pulmonary disease, unspecified Category: Medical (3) Cough: Code(s): R05 - Cough Category: Medical Qualifiers: Cough type: chronic Qualified Code(s): R05.3 - Chronic cough (4) Chronic allergic rhinitis: Code(s): J30.9 - Allergic rhinitis, unspecified Category: Medical (5) Weakness: Code(s): R53.1 - Weakness Category: Medical (6) Sinusitis: Code(s): J32.9 - Chronic sinusitis, unspecified Category: Medical Qualifiers: Chronicity: subacute Sinusitis location: unspecified location Qualified Code(s): J01.90 - Acute sinusitis, unspecified (7) Atelectasis: Code(s): J98.11 - Atelectasis Category: Medical Plan CPT with nebulized therapy followed by hypertonic saline continue antihistamine and Singulair continue PAP therapy okay to use it without humidification reflux diet holding azithromycin MWF start Doxycycline Budesonide Consider bronchosocpy for therapeutic cleaning and deep cultures if no better Continue Daliresp CXR in 6 weeks, if no better, then will request a CT chest follow-up 2-3 months Orders: Orders XR chest 2V 04/10/24 J98.11 - Atelectasis Medications: Refilled prednisone PO daily; Take 2 tabs daily x 5 days, then 1 tablet daily x 5 days 15 tabs 0RF 10 days doxycycline monohydrate 100 mg PO BID 28 tabs 1RF 14 days Coding Level of Care Code Est Pt Level 4 (30181) Complex EM visit Add On G2211 Diagnoses JENN on CPAP G47.33; Z99.89 Asthma-COPD overlap syndrome J44.9 Chronic cough R05.3 Cough type: chronic Chronic allergic rhinitis J30.9 Weakness R53.1 Subacute sinusitis, unspecified location J01.90 Chronicity: subacute Sinusitis location: unspecified location Atelectasis J98.11 Time Spent (min) 17
--- OUTSIDE RECORDS SUMMARY | 2024-04-10 12:02 | XMS_ITS | Encounter Summary ---
Author Organization [employer] Address [address] [facility] 7 [place] [address] Care Team Providers Care Rental Agent Name Role Phone Handy Elias MD Primary Care Provider [phone] Reason for Visit * Reason Onset Date Comments Medication Question 08/01/2022 Encounter Details Date Type Department Care Team ([facility] st Contact Info) Description 08/01/2022 Telephone [facility] MEDICINE [address] [place] [address] Handy Elias MD [address] [place], [place] [phone] Medication Question Social History Tobacco Use Types [...] Pt is also requestinga call back from DISPLAY DECORATOR RN. Please contact at [phone] documented in this encounter Plan of Treatment Upcoming Encounters Date Type Department Care Team (Late st Contact Info) Description 05/08/2024 2:00 PM EDT Office Visit [facility] [address] [place] [address] Handy Elias MD [address] [place] [address] 05/25/2024 3:00 PM EDT Telemedicine [facility] [address] [place] [address] Tessa Cox, MARITA [address] [place] [address] documented as of this encounter Visit Diagnoses Not on filedocumented in this encounter Care Teams Rental Agent Relationship Specialty Start Date End Date Handy Elias MD [address] [place] [address] PCP - General Internal Medicine 11/17/12 documented as of this encounter
--- OUTSIDE RECORDS SUMMARY | 2024-04-10 12:02 | XMS_ITS | Encounter Summary ---
Author Organization [employer] Address [address] [place] [address] 7 [place] [address] Care Team Providers Care Geographic Area Intelligence Officer Name Role Phone Handy Elias MD Primary Care Provider [phone] Encounter Details Date Type Department Care Team (Late Contact Info) Description 10/10/2022 Orders Only [facility] [address] [place], [place] [phone] Handy Elias MD [address] [place] [address] Social History Tobacco Use Types Packs/Day Years [...] 05/08/2024 2:00 PM EDT Office Visit [facility] [address] [place], [place] [phone] Handy Elias MD [address] [place] [address] 05/25/2024 3:00 PM EDT Telemedicine [facility] MED [facility] PED[facility] [address] [place], [place] [phone] Tessa Cox, MARITA [address] [place] [address] documented as of this encounter Visit Diagnoses Not on filedocumented in this encounter Care Teams Geographic Area Intelligence Officer Relationship Specialty Start Date End Date Handy Elias MD [address] [place] [address] PCP - General Internal Medicine 11/17/12 documented as of this encounter
--- OUTSIDE RECORDS SUMMARY | 2024-04-10 12:02 | XMS_ITS | Encounter Summary ---
Author Organization [facility] Address [address] [place] [address] Phone Care Team Providers Care Box Office Agent Name Role Phone Handy Elias MD Primary Care Provider [phone] Encounter Details Date Type Department Care Team (Late st Contact Info) Description 2022 Telephone [facility] [address] [place] [address] Christie Leone Social History Tobacco [...] on filedocumented in this encounter Care Teams Box Office Agent Relationship Specialty Start Date End Date Handy Elias MD PCP - General Internal Medicine 10/19/20 documented as of this encounter
--- OUTSIDE RECORDS SUMMARY | 2024-04-10 12:02 | XMS_ITS | Encounter Summary ---
Author Organization [employer] Address [address] 7[address] [place] [address] Care Team Providers Care Power Wood Sawyer Name Role Phone Handy Elias MD Primary Care Provider [phone] Encounter Details Date Type Department Care Team [...] [facility] [address] [place] [address] Handy Elias MD [address] [place] [address] 05/25/2024 3:00 PM EDT Telemedicine [facility] [address] [place] [address] Tessa Cox RN [address] [place] [address] documented as of this encounter Visit Diagnoses Not on filedocumented in this encounter Care Teams Power Wood Sawyer Relationship Specialty Start Date End Date Handy Elias MD [address] [place] [address] PCP - General Internal Medicine 11/17/12 documented as of this encounter
--- OUTSIDE RECORDS SUMMARY | 2024-04-10 12:02 | XMS_ITS | Encounter Summary ---
Author Organization [employer] Address [address] [facility] 7 [place] [address] Care Team Providers Care Continuous Process Rotary Drum Tanner Name Role Phone Handy Elias MD Primary Care Provider [phone] Reason for Visit * Reason Comments Med Refill Encounter Details Date Type Department Care Team (Late st Contact Info) Description 03/12/2024 Refill [facility] MEDICINE [address] [place] [address] Handy Elias MD [address] [place], [place] [phone] Primary insomnia Social History Tobacco Use Types [...] the past 12 months, has t he [employer], oil or water company threatened to shut [...] [facility] [address] [place] [address] Hnady Elias MD [address] [place] [address] 05/25/2024 3:00 PM EDT Telemedicine [facility] MED & PEDS [address] [place] [address] Tessa Cox RN [address] [place] [address] documented as of this encounter Visit Diagnoses Diagnosis Primary insomnia Persistent disorder of initiating or maintaining sleep documented in this encounter Care Teams Continuous Process Rotary Drum Tanner Relationship Specialty Start Date End Date Handy Elias MD [address] [place] [address] PCP - General Internal Medicine 11/17/12 documented as of this encounter
--- OUTSIDE RECORDS SUMMARY | 2024-04-10 12:02 | XMS_ITS | Continuity of Care Document ---
Author Organization [facility] Address [address] [place] [address] Phone Care Team Providers Care House Mover Supervisor Name Role Phone Adrai LACKEY, RVT, LEÓN, Brian Unavailable U navailable [...] (unknown strength) Not Available - Active VITAMIN [id number] ACID (unknown strength) Not Available - Active [...] E&M Established 15 Mins [facility], [address] [place] [address] Dr Arshad 1000[facility] 1000[place], [id number], [place] tel:[phone] CVR - [facility] Cramp and spasmRestless legs syndromeEssent ial (primary) hypertensionPa in in left lower legPain in left legLocalized edema 4 Adria LACKEY, RVT, LEÓN Torres. [address] [place] [address], [place], [place], [id number] , [place]. tel:[phone] Referring Provider: Handy Mckeon, [address] [place] [address], [address]. tel:[phone] [facility], [address] [place] [address] Dr Arshad [address] [address], [place], [id number], [place] tel:[phone] CVR - [facility] Encounter for follow-up examination after completed treatment for conditions other than malignant neVaricose veins of right lower extremity with pain 3 Asim LACKEY FACS RVT LEÓN [place]. [address] [place] [address], [place], [address], [place]. tel:[phone] Referring Provider: Handy Mckeon, [address], [address]. tel:[phone] [facility], [address] [place] [address] Dr Arshad [address], [place], [id number], [place] tel:[phone] CVR - [place] [facility] Varicose veins of right lower extremity with other complications Jan-0 3 Doreen De Paz . [address] [facility], [place] [address], [place], [place], [id number] , [place]. tel:[phone] Referring Provider: Handy Mckeon, [address], [address]. tel:[phone] [facility], [address] [place] [address] Dr Arshad 1000Suite 1000[place], [id number], [place] tel:[phone] CVR - [place] [facility] [place] Varicose veins of right lower extremity with other complications 3 Asim LACKEY FACS Ralf [place]. [address] [place] [address], [place], [address], [place]. [phone] Referring Provider: Handy Mckeon, [address] [place] [address], [address]. tel:[phone] Office/Outpt E&M Established 25 Mins [facility], [address] [place] [address] Dr Arshad [address] 1000[place], [id number], [place] tel:[phone] CVR - [place] [facility] [address] Chronic venous hypertension (idiopathic) with other complications of bilateral lower extremity Nov- 3 Asim LACKEY FACS [place]. [address] [place] [address], [place], [address], [place]. tel:[phone] Referring Provider: Handy Mckeon, [address], [address]. tel:[phone] Office/Outpt E&M Established 10 Mins - [facility], [address] [place] [address] Dr Arshad 1000Suite 1000[place], [id number], [place] tel:[phone] CVR - [place] [facility] [address] Venous insufficiency (chronic) (peripheral) Apr-2 6-202 3 Asim LACKEY FACS T [facility]. [facility], [place] [address], [place], [address], [place]. tel:[phone] Referring Provider: Handy Mckeon, [address] [place] [address], [address]. tel:[phone] Office/Outpt E&M Established 15 Mins [facility], [address] [place] [address] [address], [place], [id number], [place] [phone] CVR - [place] [facility] [place] [address] Venous insufficiency (chronic) (peripheral) 3 Asim LACKEY FACS [facility]. [address] [place] [address], [place], [address], [place]. [phone] Referring Provider: Handy Mckeon, [address] [place] [address], [address]. tel:[phone] [place] [facility], [address] [place] [address] Dr Arshad 1000[address], [place], [id number], [place] tel:[phone] CVR - [place] [facility] [place] Venous insufficiency (chronic) (peripheral) [address] [facility]. [address] [place] [address], [place] [address], [place], [address], [place]. [phone] Referring Provider: Blanka Dailey MD FACS [facility], [address] [place] [address], [place], [address]. tel:[phone] Office/Oupt E&M New Pt 30 Mins [facility], [address] [place] [address] Dr Arshad 1000Suite 1000[place], [id number], [place] tel:[phone] CVR - [place] - [facility] [address] Venous insufficiency (chronic) (peripheral)Lo calized edemaRestless legs syndromeEssent ial (primary) hypertensionPr uritus, unspecifiedFla il joint, unspecified jointPain in right legPain in left legPain in right lower legPain in left lower legCramp and spasm 3 Asim LACKEY FACS RVT RPTEREZA [place]. [address] [facility], [address], [facility] [place] [place], [address], [place]. tel:[phone] Referring Provider: Blanka Dailey MD FACS RVT [facility], [address] [facility] [address], [facility] [place], [address]. tel:[phone] Family History Family Member Type Diagnosis Age At Onset No Information Payers Payer name Insurance type Covered green party ID Authoriza tion(s) Medicare BIANKA MB [id number] BCBS BIANKA [id number] Social History Type Description Quantity Date Captured [...]
--- OUTSIDE RECORDS SUMMARY | 2024-04-10 12:02 | XMS_ITS | Clinical Summary ---
Author Organization [facility] Address [address] [facility] [address] 0 [place] [address] Phone Care Team Providers Care Head Charrer Name Role Phone Handy Elias MD Primary Care Provider [phone] Allergies Active Allergy Reactions Criticality Noted Date [...] 11/28/2019, 11/18/2017, Additional history exists [place] Care Teams Head Charrer Relationship Specialty Start Date End Date Handy Elias MD PCP - General Internal Medicine 10/19/20
--- OUTSIDE RECORDS SUMMARY | 2024-04-10 12:02 | XMS_ITS | Encounter Summary ---
Author Organization [employer] Address [address] [facility] 7 [place] [address] Care Team Providers Care Folding Machine Operator Name Role Phone Handy Elias MD Primary Care Provider [phone] Reason for Visit * Reason Onset Date Comments Imaging 03/20/2024 Encounter Details Date Type Department Care Team ([facility] st Contact Info) Description 03/20/2024 Telephone [facility] MED & PEDS [address] [place], [place] [phone] Handy Elias MD 505 [place], [place] [phone] Imaging Social History Tobacco Use Types Packs/Day [...] week and is planning on going to [facility] for XR.Informed I would send request to [...] Visit [facility] [address] [place] [address] Handy Elias MD 505 [place] [address] 05/25/2024 3:00 PM EDT Telemedicine [facility] 505 [place] [address] Tessa Cox, MARITA 505 [place] [address] documented as of this encounter Visit Diagnoses Not on filedocumented in this encounter Care Teams Folding Machine Operator Relationship Specialty Start Date End Date Handy Elias MD 505 [place] [address] PCP - General Internal Medicine 11/17/12 documented as of this encounter
--- OUTSIDE RECORDS SUMMARY | 2024-04-10 12:02 | XMS_ITS | Encounter Summary ---
Author Organization [facility] [employer] Address [address] [place] [address] 7 [place] [address] Care Team Providers Care Human Resources Services Specialist Name Role Phone Handy Elias MD Primary Care Provider [phone] Reason for Referral * Imaging (Routine) - Closed Specialty Diagnoses / Procedures Referred By Maurice t Referred To Contact Radiology Diagnoses Abnormal LFTs Procedures US Abdomen Complete Handy Elias MD 505 [place] [address] Phone: tel: fax: [address] Phone: tel: fax: Referral ID Status Reason Start Date Expiration Date Visits Re quested Visits Authorized [id number] Closed 03/19/2024 03/19/2025 1 1 * Imaging (Urgent) - Closed Specialty Diagnoses / Procedures Referred By Contac t Referred To Contact Radiology Diagnoses Other headache syndrome Procedures CT Head w/o Contrast Handy Elias MD [address] [place] [address] Phone: tel: fax: [address] Phone: tel: fax: Referral ID Status Reason Start Date Expiration Date Visits Re quested Visits Authorized [id number] Closed 03/19/2024 03/19/2025 1 1 * Imaging (Routine) - Canceled Specialty Diagnoses / Procedures Referred By Maurice weaver Referred To Contact Radiology Diagnoses Abnormal LFTs Procedures US Abdomen Complete Handy Elias MD 505 [place] [address] Phone: tel: fax: [address] Phone: tel: fax: Referral ID Status Reason Start Date Expiration Date V isits Requested Visits Authorized [id number] Canceled 03/19/2024 03/19/2025 1 1 Reason for Visit * Reason Comments History of fall Encounter Details Date Type Department Care Team (Late st Contact Info) Description 03/19/2024 2:00 PM EST Office Visit [facility] MED & PEDS [address] [place] [address] Handy Elias MD 505 [place] [address] Abnormal LFTs (Primary Dx); Bruises easily; Fall, [...] BY INTRAMUSCULAR ROUTE ONCE A MONTH FOR [id number] INJECTIONS 12 each 1 cholecalciferol (Vitamin D-3) [...] [facility] [address] [place] [address] Handy Elias MD 505 [place] [address] 05/25/2024 3:00 PM EDT Telemedicine [facility] MED [facility] P[facility] [address] [place] [address] Tessa Cox RN 505 [place] [address] Scheduled Orders Name Type Priority Associated Diagnoses [...] Adult Primary Care ?[address] ? [place] [address] ? Ultrasound Report ? Signed ? Patient: Linden,Henri F ?MR#: [id number] ?? 79 ? : 1960 ?Acct:[id number] ? Age/Sex: 64 / M ?ADM Date: 03/25/24 ? Loc: HO.HMGCX ? Attending Dr: Handy Elias MD ? Ordering Physician: Handy Elias MD ?? Date of Service: 03/25/24 ?? Procedure(s): US abdomen complete ?? Accession Number(s): [id number] ? cc: Handy Elias MD ? CLINICAL [...] DD/ 49 ? TD/TT: 03/27/24 1150 ? Chemical Handler: ? Procedure Note Donotuseinterpreter, Image - 03/27/2024 [facility] [address] [place] [address] [place] [address] Ultrasound Report Signed Patient: Henri Espino FMR#: [id number] [birth year] : 8Acct:[id number] Age/Sex: 64 / MADM Date: 03/25/24 Loc: HO.HMGCX Attending Dr: Hnady Elias MD Ordering Physician: Handy Elias MD Date of Service: 03/25/24 Procedure(s): US abdomen complete Accession Number(s): [id number] cc: Handy Elias MD CLINICAL HISTORY: Elevated [...] 03/27/24 1150 DD/ 1150 TD/TT: 03/27/24 1150 Chemical Handler: us Handy Elias MD IMG US PROCEDURES Final Res ult * CT Head w/o Contrast (03/23/2024 4:26 PM EST) Anatomical Region Laterality Modality Head, Neck Computed Tomogra phy 03/23/2024 4:26 PM EST Narrative 03/24/2024 7:12 AM EST ? [facility] ?[address] ?[place] [address] ? CT Scan Report ? Signed ? Patient: Henri Espino ?MR#: [id number] ?? 79 ? : 1960 ?Acct:[id number] ? Age/Sex: 64 / M ?ADM Date: 03/23/24 ? Loc: HO.CT ? Attending Dr: Handy Elias MD ? Ordering Physician: Handy Elias MD ?? Date of Service: 03/23/24 ?? Procedure(s): CT head/brain wo IV con ?? Accession Number(s): [id number] ? cc: Handy Elias MD ? Report Number: ?? [id number]: Total DLP = ??853.00 mGy-cm ?? EXAMINATION: [...] DD/ 1626 ? TD/TT: 03/23/24 1743 ? Chemical Handler: MSM ? Procedure Note Bri Beck - 03/24/[address] [address] [address] Scan Report Signed Patient: Henri Espino FMR#: [id number] [birth year] : 8Acct:[id number] Age/Sex: 64 / MADM Date: 03/23/24 Loc: HO.CT Attending Dr: Handy Elias MD Ordering Physician: Handy Elias MD Date of Service: 03/23/24 Procedure(s): CT head/brain wo IV con Accession Number(s): [id number] cc: Handy Elias MD Report Number: [id number]: Total DLP = 853.00 mGy-cm EXAMINATION: CT [...] OV> 03/24/24 0709 DD/ 1626 TD/TT: 03/23/24 3753 Chemical Handler: [facility] us Handy Elias MD [facility] CT PROCEDURES Final Res ult * Partial Thromboplastin Time, Activated (APTT) (03/23/2024 4:24 PM EST) [facility] Signature Partial Thromboplastin Time 32.8 26.0 - 36.8 SEC [facility] Comment:For information rega rding the monitoring of direct thrombininhibitors, please refer to Pharmacy. Blood Venous blood specimen / Unknown 03/23/2024 4:24 PM EST 03/23/2024 4:24 PM EST us Handy Elias MD LAB BLOOD ORDERABLES Final Result Performing Organization Address [facility] Co de Phone Number [facility] [address] [place] [phone] * Prothrombin Time-INR (03/23/2024 4:24 PM EST) Prothrombin Time 11.0 10.9 - 12.4 SEC [facility] INTERNATIONAL NORM RATIO 0.9 0.9 - 1.1 [facility] Comment:INTERNATIONAL NORMAL IZED RATIO [...] BLOOD ORDERABLES Final Result Performing Organization Address [facility] Co de Phone Number [facility] [address] [place] [phone] * (ABNORMAL) Basic Metabolic Panel (03/23/2024 4:24 PM EST) Sodium 136 135 - 145 mmol/L [facility] Potassium 4.8 3.3 - 5.1 mmol/L [facility] Chloride 105 96 - 108 mmol/L [facility] Carbon Dioxide 23 22 - 29 mmol/L [facility] Anion Gap 13 12 - 20 [facility] Urea Nitrogen (BUN) 18(H) 9 - 16 mg/dL [facility] Creatinine, Serum 1.39 0.5 - 1.4 mg/dL [facility] Estimated Glomerular Filt Rate 51 [facility] Comment:Chronic Kidney Disea se: Estimated GFR < 60 mL/min/1.46n2Nrcahd Kidney Disease: Estimated GFR < 15 mL/min/1.73m2 Glucose 92 60 - 115 mg/dL [facility] Calcium 9.4 8.4 - 10.2 mg/dL [facility] Blood Venous blood specimen / Unknown 03/23/2024 4:24 PM EST 03/23/2024 4:24 PM EST us Handy Elias MD LAB BLOOD ORDERABLES Final Result [facility] [address] [place] [phone] * (ABNORMAL) CBC auto differential (03/23/2024 4:24 PM EST) White Blood Count 9.8 4.8 - 10.8 X10*3/uL [facility] Red Blood Count 5.06 4.60 - 5.80 X10*6/uL [facility] Hemoglobin 15.9 14.0 - 18.0 g/dl [facility] Hematocrit 47.7 42.0 - 52.0 % [facility] Mean Corpuscular Volume 94.3 80.0 - 98.0 fL [facility] Mean Corpuscular Hemoglobin 31.4 27.0 - 33.0 pg [facility] Mean Corpuscular HGB Conc 33.3 31.0 - 36.0 g/dl [facility] Red Cell Distribution Width 14.0 11.0 - 16.0 % [facility] Platelet Count 293 160 - 400 X10*3/uL [facility] Mean Platelet Volume 9.9 9.4 - 12.4 fL [facility] Neutrophils Percent Auto 65.0 45 - 73 % [facility] Imm Gran Pct Auto 2.4(H) 0.0 - 0.4 % [facility] Lymphocytes Percent Auto 19.0(L) 20 - 40 % [facility] Monocytes Percent Auto 10.3 2 - 11 % [facility] Eosinophils Percent Auto 2.6 0 - 4 % [facility] Basophils Percent Auto 0.7 0 - 2 % [facility] NRBC Pct Auto 0.0 0.0 - 0.2 /100WBC [facility] Neutrophils Absolute Auto 6.4 2.0 - 8.3 x10*3/uL [facility] Imm Gran Abs Auto 0.23(H) 0.00 - 0.03 X10*3/uL [facility] Lymphocytes Absolute Auto 1.9 1.2 - 4.9 X10*3/uL [facility] Monocytes Absolute Auto 1.0 0.1 - 1.2 X10*3/uL [facility] Eosinophils Absolute Auto 0.3 0.0 - 0.4 X10*3/uL [facility] Basophils Absolute Auto 0.1 0.0 - 0.2 X10*3/uL [facility] NRBC Abs Auto 0.000 0.0 - 0.012 X10*3/uL [facility] Blood Venous blood specimen / Unknown 03/23/2024 4:24 PM EST 03/23/2024 4:24 PM EST us Handy Elias MD LAB BLOOD ORDERABLES Final Result [facility] [address] [place] [address] [phone] * XR Chest 2 Views (03/23/2024 3:44 PM EST) Anatomical Region Laterality Modality Chest Radiographic Ame ging 03/23/2024 3:44 PM EST Narrative 03/23/2024 5:03 PM EST ? [facility] [place] [facility] ?[address] ?[place] [address] ?XRay Report ? Signed ? Patient: Srinivas,Henri F ?MR#: [id number] ?? 79 ? : 1960 ?Acct:[id number] ? Age/Sex: 64 / M ?ADM Date: 03/23/24 ? Loc: HO.CT ? Attending Dr: Handy Elias MD ? Ordering Physician: Handy Elias MD ?? Date of Service: 03/23/24 ?? Procedure(s): XR chest 2V ?? Accession Number(s): [id number] ? cc: Handy Elias MD ? EXAMINATION: [...] DD/ 1544 ? TD/TT: 03/23/24 1605 ? Chemical Handler: MSM ? Procedure Note Bri Beck - 03/23/[address] [address] XRay Report Signed Patient: Henri Espino FMR#: [id number] 79 : 8Acct:[id number] Age/Sex: 64 / MADM Date: 03/23/24 Loc: HO.CT Attending Dr: Handy Elias MD Ordering Physician: Handy Elias MD Date of Service: 03/23/24 Procedure(s): XR chest 2V Accession Number(s): [id number] cc: Handy Elias MD EXAMINATION: XR CHEST [...] 03/23/24 1700 DD/ 1544 TD/TT: 03/23/24 1605 Chemical Handler: [facility] Handy Elias MD IMG XR PROCEDURES Final Res ult documented in this encounter Visit Diagnoses Diagnosis Abnormal LFTs- Primary Bruises easily Other symptoms involving skin and integumentary tissues Fall, initial encounter Other headache syndrome SOB (shortness of breath) Shortness of breath documented in this encounter Care Teams Human Resources Services Specialist Relationship Specialty Start Date End Date Handy Elias MD [address] [place] [address] PCP - General Internal Medicine 11/17/12 documented as of this encounter
--- OUTSIDE RECORDS SUMMARY | 2024-04-10 12:02 | XMS_ITS | Encounter Summary ---
Author Organization [employer] Address [address] [place] [address] 7 [place] [address] Care Team Providers Care Marine Equipment Test Engineer Name Role Phone Handy Elias MD Primary Care Provider [phone] Encounter Details Date Type Department Care Team (Late Contact Info) Description 08/29/2022 Orders Only [facility] MED & PEDS [address] [place], [place] [phone] Handy Elias MD 505 [place] [address] Social History Tobacco Use Types Packs/Day Years [...] [facility] [address] [place] [address] Handy Elias MD 505 [place], [place] [phone] 05/25/2024 3:00 PM EDT Telemedicine [facility] MED & PEDS [address] [place] [address] Tessa Cox RN 505 [place] [address] documented as of this encounter Visit Diagnoses Not on filedocumented in this encounter Care Teams Marine Equipment Test Engineer Relationship Specialty Start Date End Date Handy Elias MD [address] [place] [address] PCP - General Internal Medicine 11/17/12 documented as of this encounter
--- OUTSIDE RECORDS SUMMARY | 2024-04-10 12:02 | XMS_ITS | Encounter Summary ---
Author Organization [employer] [facility] Address [address] [place] [address] Care Team Providers Care Wash And Greaser Name Role Phone Handy Elias MD Primary Care Provider [phone] Encounter Details Date Type Department Care Team (Late st Contact Info) Description 07/16/2022 Orders Only [facility] MED & PEDS [address] [place] [address] Nataliia Santos LPN Social History Tobacco Use [...] [facility] [address] [place] [address] Handy Elias MD 505 [place] [address] 05/25/2024 3:00 PM EDT Telemedicine [facility] MED [facility] PED[facility] [address] [place] [address] Tessa Cox, MARITA 505 [place], [place] [phone] documented as of this encounter Visit Diagnoses Not on filedocumented in this encounter Care Teams Wash And Greaser Relationship Specialty Start Date End Date Handy Elias MD [address] [place] [address] PCP - General Internal Medicine 11/17/12 documented as of this encounter
--- OUTSIDE RECORDS SUMMARY | 2024-04-10 12:03 | XMS_ITS | Encounter Summary ---
Author Organization [employer] Address [address] [place] [address] 7 [place] [address] Care Team Providers Care Skein Yarn Drier Name Role Phone Handy Elias MD Primary Care Provider Encounter Details Date Type Department Care Team (Late Contact Info) Description 12/12/2022 Orders Only [facility] CHC MED & PEDS [address] [place], [place] [phone] Handy Elias MD 505 [place], [place] [phone] Vitamin B12 deficiency (Primary Dx) Social History [...] [facility] [place] [address] [place], [place] [phone] Handy Elias MD [address] [place], [place] [phone] 05/25/2024 3:00 PM EDT Telemedicine [facility] [address] [place] [address] Tessa Cox RN 505 [place] [address] documented as of this encounter Visit Diagnoses Diagnosis Vitamin B12 deficiency- Primary Other B-complex deficiencies documented in this encounter Care Teams Skein Yarn Drier Relationship Specialty Start Date End Date Handy Elias MD [address] [place] [address] PCP - General Internal Medicine 11/17/12 documented as of this encounter
--- OUTSIDE RECORDS SUMMARY | 2024-04-10 12:03 | XMS_ITS | Encounter Summary ---
Author Organization [employer] Address [address] [place] [address] 7 [place] [address] Care Team Providers Care Commissions Coordinator Name Role Phone Handy Elias MD Primary Care Provider [phone] Encounter Details Date Type Department Care Team (Late st Contact Info) Description 2022 Abstract [facility] [address] [place], [place] [phone] ProviderMelanie MD Social History Tobacco Use Types [...] Description 05/08/2024 2:00 PM EDT Office Visit [facility] CHC MED & PEDS [address] [place], [place] [phone] Handy Elias MD [address] [place], [place] [phone] 05/25/2024 3:00 PM EDT Telemedicine [facility] MED & PEDS [address] [place] [address] Tessa Cox RN 505 [place] [address] documented as of this encounter Visit Diagnoses Not on filedocumented in this encounter Care Teams Commissions Coordinator Relationship Specialty Start Date End Date Handy Elias MD [address] [place] [address] PCP - General Internal Medicine 11/17/12 documented as of this encounter
--- OUTSIDE RECORDS SUMMARY | 2024-04-10 12:03 | XMS_ITS | Encounter Summary ---
Author Organization [employer] Address [address] [place] [address] 7 [place] [address] Care Team Providers Care Loan Analyst Name Role Phone Handy Elias MD Primary Care Provider [phone] Encounter Details Date Type Department Care Team (Late Contact Info) Description 12/26/2022 Abstract [facility] MEDICINE [address] [place], [place] [phone] Handy Elias MD 505 [place], [place] [phone] Social History Tobacco Use Types Packs/Day Years [...] Description 05/08/2024 2:00 PM EDT Office Visit [facility] CHC MED & PEDS 505 [place], [place] [phone] Handy Elias MD 505 [place], [place] [phone] 05/25/2024 3:00 PM EDT Telemedicine [facility] MED & PEDS 505 [place], [place] [phone] Tessa Cox, MARITA [address] [place] [address] documented as of this encounter Visit Diagnoses Not on filedocumented in this encounter Care Teams Loan Analyst Relationship Specialty Start Date End Date Handy Elias MD 505 [place] [address] PCP - General Internal Medicine 11/17/12 documented as of this encounter
--- OUTSIDE RECORDS SUMMARY | 2024-04-10 12:03 | XMS_ITS | Encounter Summary ---
Author Organization [employer] Address [address] [place] [address] Care Team Providers Care Public Relations Sales Marketing Name Role Phone Handy Elias MD Primary Care Provider +1- [phone] Reason for Visit * Reason Onset Date Comments Call Back Request 05/14/2023 Encounter Details Date Type Department Care Team (Late st Contact Info) Description 05/14/2023 Telephone [facility] MEDICINE 230 [place] [address] Handy Elias MD [address] [place], [place] [phone] Call Back Request Social History Tobacco Use [...] [facility] MED & PEDS [address] [place] [address] Handy Elias MD 505 [place] [address] 05/25/2024 3:00 PM EDT Telemedicine [facility] MED [facility] PEDS [address] [place] [address] Tessa Cox RN 505 [place] [address] documented as of this encounter Visit Diagnoses Not on filedocumented in this encounter Care Teams Public Relations Sales Marketing Relationship Specialty Start Date End Date Handy Elias MD 505 [place] [address] PCP - General Internal Medicine 11/17/12 documented as of this encounter
--- OUTSIDE RECORDS SUMMARY | 2024-04-10 12:03 | XMS_ITS | Encounter Summary ---
Author Organization [employer] Address 75 [facility] 7 [place] [address] Care Team Providers Care Foreign Service Teacher Name Role Phone Handy Elias MD Primary Care Provider +1 [phone] Reason for Visit * Reason Onset Date Comments Medication Question 02/07/2022 Encounter Details Date Type Department Care Team ([facility] st Contact Info) Description 02/07/2022 Telephone [facility] MEDICINE 230 [place] [address] Handy Elias MD 505 [place], [place] [phone] Medication Question Social History Tobacco Use Types [...] a message for clarification. Please contact at [phone] documented in this encounter Plan of Treatment Upcoming Encounters Date Type Department Care Team ([facility] st Contact Info) Description 05/08/2024 2:00 PM EDT Office Visit [facility] MED & PEDS [address] [place] [address] Handy Elias MD 505 [place] [address] 05/25/2024 3:00 PM EDT Telemedicine [facility] MED & PEDS [address] [place] [address] Tessa Cox, MARITA 505 [place] [address] documented as of this encounter Visit Diagnoses Not on filedocumented in this encounter Care Teams Foreign Service Teacher Relationship Specialty Start Date End Date Handy Elias MD 505 [place] [address] PCP - General Internal Medicine 11/17/12 documented as of this encounter
--- OUTSIDE RECORDS SUMMARY | 2024-04-10 12:03 | XMS_ITS | Encounter Summary ---
Author Organization [employer] Address [address] [place] [address] Care Team Providers Care Linecasting Machine Keyboard Operator Name Role Phone Handy Elias MD Primary Care Provider +1- [phone] Reason for Visit * Reason Onset Date Comments Call Back Request 06/19/2023 Encounter Details Date Type Department Care Team (Late st Contact Info) Description 06/19/2023 Telephone [facility] MEDICINE 230 [place] [address] Handy Elias MD 505 [place] [address] Call Back Request Social History Tobacco Use [...] [facility] MED & PEDS 505 [place] [address] Handy Elias MD 505 [place] [address] 05/25/2024 3:00 PM EDT Telemedicine [facility] MED & PEDS 505 [place] [address] Tessa Cox RN 505 [place] [address] documented as of this encounter Visit Diagnoses Not on filedocumented in this encounter Care Teams Linecasting Machine Keyboard Operator Relationship Specialty Start Date End Date Handy Elias MD 505 [place] [address] PCP - General Internal Medicine 11/17/12 documented as of this encounter
--- OUTSIDE RECORDS SUMMARY | 2024-04-10 12:03 | XMS_ITS | Encounter Summary ---
Author Organization [employer] Address 75 [facility] 7 [place] [address] Care Team Providers Care Fitness Director Name Role Phone Handy Elias MD Primary Care Provider [phone] Reason for Visit * Reason Onset Date Comments Med Refill 11/15/2023 Encounter Details Date Type Department Care Team (Late st Contact Info) Description 11/15/2023 Telephone [facility] MEDICINE 230 [place] [address] Handy Elias MD 505 [place], [place] [phone] Med Refill Social History Tobacco Use Types [...] 10 MG tablet To be sent to: [facility]/pharmacy #[id number] - [place], [place] - [address] [facility] [address], [place] [address] documented in this encounter Plan of Treatment Upcoming Encounters Date Type Department Care Team (Late st Contact Info) Description 05/08/2024 2:00 PM EDT Office Visit [facility] MED & PEDS 505 [place] [address] Handy Elias MD 505 [place] [address] 05/25/2024 3:00 PM EDT Telemedicine [facility] MED & PEDS 505 [place] [address] Tessa Cox RN 505 [place] [address] documented as of this encounter Visit Diagnoses Not on filedocumented in this encounter Care Teams Fitness Director Relationship Specialty Start Date End Date Handy Elias MD 505 [place] [address] PCP - General Internal Medicine 11/17/12 documented as of this encounter
--- OUTSIDE RECORDS SUMMARY | 2024-04-10 12:03 | XMS_ITS | Encounter Summary ---
Author Organization [employer] Address 75 [facility] 7 [place] [address] Care Team Providers Care Relief Manager Name Role Phone Handy Elias MD Primary Care Provider [phone] Reason for Visit * Reason Onset Date Comments call back requested 10/18/2023 Encounter Details Date Type Department Care Team ([facility] st Contact Info) Description 10/18/2023 Telephone [facility] MEDICINE 230 [place] [address] Handy Elias MD 505 [place], [place] [phone] call back requested Social History Tobacco Use [...] spouse states just missed a call from POT PRESS OPERATOR nurse Tessa . documented in this encounter Plan of Treatment Upcoming Encounters Date Type Department Care Team (Late st Contact Info) Description 05/08/2024 2:00 PM EDT Office Visit [facility] MED & PEDS 505 [place] [address] Handy Elias MD 505 [place] [address] 05/25/2024 3:00 PM EDT Telemedicine [facility] MED & PEDS 505 [place] [address] Tessa Cox RN 505 [place] [address] documented as of this encounter Visit Diagnoses Not on filedocumented in this encounter Care Teams Relief Manager Relationship Specialty Start Date End Date Handy Elias MD 505 [place] [address] PCP - General Internal Medicine 11/17/12 documented as of this encounter
--- OUTSIDE RECORDS SUMMARY | 2024-04-10 12:03 | XMS_ITS | Encounter Summary ---
Author Organization [employer] Address 75 [facility] 7 [place] [address] Care Team Providers Care Vocational Guidance Counselor Name Role Phone Handy Elias MD Primary Care Provider [phone] Reason for Visit * Reason Onset Date Comments Med Refill 04/08/2024 Encounter Details Date Type Department Care Team (Late st Contact Info) Description 04/08/2024 Refill [facility] MEDICINE 230 [place] [address] Handy Elias MD 505 [place], [place] [phone] Chronic pain syndrome Social History Tobacco Use [...] immediate release tablet To be sent to: [facility]/pharmacy #[id number] - [place], [place] - [address] [facility] [address] [place] [address] documented in this encounter Plan of Treatment Upcoming Encounters Date Type Department Care Team (Late st Contact Info) Description 05/08/2024 2:00 PM EDT Office Visit [facility] MED & PEDS 505 [place] [address] Handy Elias MD 505 [place] [address] 05/25/2024 3:00 PM EDT Telemedicine [facility] MED & PEDS 505 [place] [address] Tessa Cox, MARITA 505 [place] [address] documented as of this encounter Visit Diagnoses Diagnosis Chronic pain syndrome documented in this encounter Care Teams Vocational Guidance Counselor Relationship Specialty Start Date End Date Handy Elias MD 505 [place] [address] PCP - General Internal Medicine 11/17/12 documented as of this encounter
--- OUTSIDE RECORDS SUMMARY | 2024-04-10 12:03 | XMS_ITS | Encounter Summary ---
Author Organization [employer] Address [address] [place] [address] 7 [place] [address] Care Team Providers Care Supervisor Television Chassis Repair Name Role Phone Handy Elias MD Primary Care Provider +1- [phone] Encounter Details Date Type Department Care Team (Late Contact Info) Description 02/02/2022 Orders Only [facility] MEDICINE 230 [place], [place] [phone] Handy Elias MD 505 [place], [place] [phone] Cold intolerance of hand (Primary Dx); Primary [...] Description 05/08/2024 2:00 PM EDT Office Visit [facility] MED & PEDS 505 [place], [place] [phone] Handy Elias MD 505 [place], [place] [phone] 05/25/2024 3:00 PM EDT Telemedicine [facility] MED & PEDS 505 [place] [address] Tessa Cox, MARITA 505 [place] [address] documented as of this encounter Procedures Procedure Name Priority Date/Time Associated Diagnosis Comments TSH W/REFLEX TO FT4 Routine 03/01/2022 1 1:16 AM EST Cold intolerance of hand documented in this encounter Results * TSH W/Reflex to FT4 (03/01/2022 11:16 AM EST) TSH w/Reflex to FT4 2.35 0.40 - 4.50 mIU/L [email or web address] [place] [facility] 03/01/2022 11:1 6 AM EST 03/01/2022 11:16 AM EST Handy Elias MD LAB BLOOD ORDERABLES Final Result [facility] [address] [facility], [place] [address] [employer] [place] [facility] [address] [facility], ([address]) [place] [address] documented in this encounter Visit Diagnoses Diagnosis Cold intolerance of hand- Primary Primary insomnia Persistent disorder of initiating or maintaining sleep documented in this encounter Care Teams Supervisor Television Chassis Repair Relationship Specialty Start Date End Date Handy Elias MD 505 [place] [address] PCP - General Internal Medicine 11/17/12 documented as of this encounter
--- OUTSIDE RECORDS SUMMARY | 2024-04-10 12:03 | XMS_ITS | Encounter Summary ---
Author Organization [employer] Address 75 [facility] 7 [place] [address] Care Team Providers Care Web Applications Developer Name Role Phone Handy Allen MD Primary Care Provider [phone] Reason for Visit * Reason Onset Date Comments Results 03/24/2024 Encounter Details Date Type Department Care Team ([facility] st Contact Info) Description 03/24/2024 Telephone [facility] MEDICINE 230 [place] [address] Handy Allen MD [address] [place], [place] [phone] Results Social History Tobacco Use Types Packs/Day [...] Blood test Date when done: 03/23 Facility: [facility] Pt states Prefers to Talk to PCP Contact pt at [phone] documented in this encounter Plan of Treatment Upcoming Encounters Date Type Department Care Team ([facility] st Contact Info) Description 05/08/2024 2:00 PM EDT Office Visit [facility] MED & PEDS 505 [place] [address] Handy Allen MD 505 [place] [address] 05/25/2024 3:00 PM EDT Telemedicine [facility] MED & PEDS 505 [place] [address] Tessa Cox RN 505 [place] [address] documented as of this encounter Visit Diagnoses Not on filedocumented in this encounter Care Teams Web Applications Developer Relationship Specialty Start Date End Date Handy Allen MD 505 [place] [address] PCP - General Internal Medicine 11/17/12 documented as of this encounter
--- OUTSIDE RECORDS SUMMARY | 2024-04-10 12:03 | XMS_ITS | Encounter Summary ---
Author Organization [employer] Address [address] [place] [address] 7 [place] [address] Care Team Providers Care Pattern Room Attendant Name Role Phone Handy Elias MD Primary Care Provider +1- [phone] Encounter Details Date Type Department Care Team (Late Contact Info) Description 03/14/2023 Orders Only [facility] MED & PEDS 505 [place] [address] Handy Elias MD 505 [place] [address] Chronic pain syndrome; Primary insomnia Social History [...] PM EDT Office Visit [facility] MED & PEDS 505 [place] [address] Handy Elias MD 505 [place] [address] 05/25/2024 3:00 PM EDT Telemedicine [facility] MED & PEDS 505 [place] [address] Tessa Cox RN [address] [place] [address] documented as of this encounter Visit Diagnoses Diagnosis Chronic pain syndrome Primary insomnia Persistent disorder of initiating or maintaining sleep documented in this encounter Care Teams Pattern Room Attendant Relationship Specialty Start Date End Date Handy Elias MD 505 [place] [address] PCP - General Internal Medicine 11/17/12 documented as of this encounter
--- OUTSIDE RECORDS SUMMARY | 2024-04-10 12:03 | XMS_ITS | Encounter Summary ---
Author Organization [employer] Address 75 [facility] 7 [place] [address] Care Team Providers Care Multilith Operator Name Role Phone Handy Elias MD Primary Care Provider [phone] Encounter Details Date Type Department Care Team (Late st Contact Info) Description 11/15/2023 Orders Only [facility] MED & PEDS [address] [place], [place] [phone] Handy Elias MD 505 [place], [place] [phone] Social History Tobacco Use Types Packs/Day Years [...] [facility] MED & PEDS 505 [place] [address] Handy Elias MD 505 [place] [address] 05/25/2024 3:00 PM EDT Telemedicine [facility] MED & PEDS 505 [place] [address] Tessa Cox, MARITA 505 [place] [address] documented as of this encounter Visit Diagnoses Not on filedocumented in this encounter Care Teams Multilith Operator Relationship Specialty Start Date End Date Handy Elias MD 505 [place] [address] PCP - General Internal Medicine 11/17/12 documented as of this encounter
--- OUTSIDE RECORDS SUMMARY | 2024-04-10 12:03 | XMS_ITS | Encounter Summary ---
Author Organization [employer] Address [address] [facility] [address] 7t [place] [address] Care Team Providers Care Slip Cover Operator Name Role Phone Handy Elias MD Primary Care Provider [phone] Reason for Visit * Reason Onset Date Comments Results 04/02/2024 Encounter Details Date Type Department Care Team ([facility] st Contact Info) Description 04/02/2024 Telephone C [facility] MED & PEDS [address] [place], [place] [phone] Renay Almeida, MARITA Results Social History Tobacco [...] specialist on Apr 15. Handy Elias MD [facility] Med & Peds Nurses Please call to [...] [facility] MED & PEDS 505 [place] [address] Handy Elias MD 505 [place] [address] 05/25/2024 3:00 PM EDT Telemedicine [facility] MED & PEDS 505 [place] [address] Tessa Cox, MARITA 505 [place] [address] documented as of this encounter Visit Diagnoses Not on filedocumented in this encounter Care Teams Slip Cover Operator Relationship Specialty Start Date End Date Handy Elias MD 505 [place] [address] PCP - General Internal Medicine 11/17/12 documented as of this encounter
--- OUTSIDE RECORDS SUMMARY | 2024-04-10 12:03 | XMS_ITS | Encounter Summary ---
Author Organization [employer] Address 75 [facility] 7 [place] [address] Care Team Providers Care Tea Taster Name Role Phone Handy Elias MD Primary Care Provider +1 [phone] Reason for Visit * Reason Onset Date Comments Med Refill 01/14/2024 Encounter Details Date Type Department Care Team (Late st Contact Info) Description 01/14/2024 Telephone [facility] MEDICINE 230 [place] [address] Handy Elias MD 505 [place], [place] [phone] Med Refill Social History Tobacco Use Types [...] immediate release tablet To be sent to: [facility]/pharmacy #[id number] - [place], [place] - [address] [facility] [address] [place] [address] documented in this encounter Plan of Treatment Upcoming Encounters Date Type Department Care Team (Late st Contact Info) Description 05/08/2024 2:00 PM EDT Office Visit [facility] MED & PEDS 505 [place] [address] Handy Elias MD 505 [place] [address] 05/25/2024 3:00 PM EDT Telemedicine [facility] MED & PEDS 505 [place] [address] Tessa Cox RN 505 [place] [address] documented as of this encounter Visit Diagnoses Not on filedocumented in this encounter Care Teams Tea Taster Relationship Specialty Start Date End Date Handy Elias MD 505 [place] [address] PCP - General Internal Medicine 11/17/12 documented as of this encounter
--- OUTSIDE RECORDS SUMMARY | 2024-04-10 12:03 | XMS_ITS | Encounter Summary ---
Author Organization [employer] Address 75 [facility] 7 [place] [address] Care Team Providers Care Electrician Helper Powerhouse Name Role Phone Handy Elias MD Primary Care Provider +1 [phone] Reason for Visit * Reason Onset Date Comments Med Refill 06/12/2022 Encounter Details Date Type Department Care Team (Late st Contact Info) Description 06/12/2022 Telephone [facility] MEDICINE 230 [place] [address] Handy Elias MD 505 [place], [place] [phone] Med Refill Social History Tobacco Use Types [...] Description 05/08/2024 2:00 PM EDT Office Visit [facility] MED & PEDS [address] [facility] [place] [address] Handy Elias MD 505 [place] [address] 05/25/2024 3:00 PM EDT Telemedicine [facility] MED & PEDS 505 [place] [address] Tessa Cox RN 505 [place] [address] documented as of this encounter Visit Diagnoses Not on filedocumented in this encounter Care Teams Electrician Helper Powerhouse Relationship Specialty Start Date End Date Handy Elias MD 505 [place] [address] PCP - General Internal Medicine 11/17/12 documented as of this encounter
--- OUTSIDE RECORDS SUMMARY | 2024-04-10 12:03 | XMS_ITS | Encounter Summary ---
Author Organization [employer] Address [address] [place] [address] Care Team Providers Care Lead Producer Name Role Phone Handy Elias MD Primary Care Provider +1- [phone] Reason for Visit * Reason Onset Date Comments Reschedule 04/01/2023 Encounter Details Date Type Department Care Team (Late st Contact Info) Description 04/01/2023 Telephone [facility] MEDICINE 230 [place] [address] Handy Elias MD 505 [place] [address] Reschedule Social History Tobacco Use Types Packs/Day [...] Phillip from [employer] requesting r/s 04/04/2023 appt, copywriter attempted to schedule no availability. documented in this encounter Plan of Treatment Upcoming Encounters Date Type Department Care Team (Late st Contact Info) Description 05/08/2024 2:00 PM EDT Office Visit [facility] MED & PEDS 505 [place] [address] Handy Elias MD 505 [place] [address] 05/25/2024 3:00 PM EDT Telemedicine [facility] MED & PEDS 505 [place] [address] Tessa Cox RN 505 [place] [address] documented as of this encounter Visit Diagnoses Not on filedocumented in this encounter Care Teams Lead Producer Relationship Specialty Start Date End Date Handy Elias MD [address] [place] [address] PCP - General Internal Medicine 11/17/12 documented as of this encounter
--- OUTSIDE RECORDS SUMMARY | 2024-04-10 12:03 | XMS_ITS | Encounter Summary ---
Author Organization [employer] Address [address] [facility] 7 [place] [address] Care Team Providers Care Director Network Development Name Role Phone Handy Elias MD Primary Care Provider [phone] Reason for Visit * Reason Onset Date Comments Med Refill 09/23/2023 Encounter Details Date Type Department Care Team (Late st Contact Info) Description 09/23/2023 Telephone [facility] MEDICINE 230 [place] [address] Handy Elias MD 505 [place], [place] [phone] Med Refill Social History Tobacco Use Types [...] immediate release tablet To be sent to: [facility]/pharmacy #[id number] - [place], [place] - [address] [facility] [address] [place] [address] documented in this encounter Plan of Treatment Upcoming Encounters Date Type Department Care Team (Late st Contact Info) Description 05/08/2024 2:00 PM EDT Office Visit [facility] MED & PEDS 505 [place] [address] Handy Elias MD 505 [place] [address] 05/25/2024 3:00 PM EDT Telemedicine [facility] MED & PEDS 505 [place] [address] Tessa Cox RN 505 [place] [address] documented as of this encounter Visit Diagnoses Not on filedocumented in this encounter Care Teams Director Network Development Relationship Specialty Start Date End Date Handy Elias MD 505 [place] [address] PCP - General Internal Medicine 11/17/12 documented as of this encounter
--- OUTSIDE RECORDS SUMMARY | 2024-04-10 12:03 | XMS_ITS | Encounter Summary ---
Author Organization [employer] Address [address] [place] [address] [place] [address] Care Team Providers Care Cardiothoracic Physiotherapist Name Role Phone Handy Elias MD Primary Care Provider +1- [phone] Reason for Visit * Reason Onset Date Comments Med Refill 02/13/2023 Encounter Details Date Type Department Care Team (Late st Contact Info) Description 02/13/2023 Telephone [facility] MEDICINE 230 [place] [address] Handy Elias MD 505 [place], [place] [phone] Med Refill Social History Tobacco Use Types [...] oxyCODONE (Roxicodone) 5 MG immediate release tablet [facility]/pharmacy #[id number] - [place], [place] - [address] [place] [address] [address] [facility] [address] documented in this encounter Plan of Treatment Upcoming Encounters Date Type Department Care Team (Late st Contact Info) Description 05/08/2024 2:00 PM EDT Office Visit [facility] MED & PEDS 505 [place] [address] Handy Elias MD 505 [place] [address] 05/25/2024 3:00 PM EDT Telemedicine [facility] MED & PEDS 505 [place] [address] Tessa Cox, MARITA 505 [place] [address] documented as of this encounter Visit Diagnoses Not on filedocumented in this encounter Care Teams Cardiothoracic Physiotherapist Relationship Specialty Start Date End Date Handy Elias MD 505 [place] [address] PCP - General Internal Medicine 11/17/12 documented as of this encounter
--- OUTSIDE RECORDS SUMMARY | 2024-04-10 12:03 | XMS_ITS | Encounter Summary ---
Author Organization [employer] Address [address] [place] [address] 7 [place] [address] Care Team Providers Care Supervisor Molding Name Role Phone Handy Elias MD Primary Care Provider [phone] Reason for Visit * Reason Onset Date Comments Med Refill 07/30/2023 Encounter Details Date Type Department Care Team (Late st Contact Info) Description 07/30/2023 Telephone [facility] MED[facility]INE [address] [place] [address] Handy Elias MD [address] [place], [place] [phone] Med Refill Social History Tobacco Use Types [...] be sent to: [facility]/pharmacy #[id number] - [place] - [address] [place] [address] AT [address] [place] [address] documented in this encounter Plan of Treatment Upcoming Encounters Date Type Department Care Team (Late st Contact Info) Description 05/08/2024 2:00 PM EDT Office Visit [facility] [address] [facility] [place] [address] Handy Elias MD [address] [place] [address] 05/25/2024 3:00 PM EDT Telemedicine [facility] 505 [place] [address] Tessa Cox RN 505 [place] [address] documented as of this encounter Visit Diagnoses Not on filedocumented in this encounter Care Teams Supervisor Molding Relationship Specialty Start Date End Date Handy Elias MD [address] [place] [address] PCP - General Internal Medicine 11/17/12 documented as of this encounter
--- OUTSIDE RECORDS SUMMARY | 2024-04-10 12:03 | XMS_ITS | Encounter Summary ---
Author Organization [employer] Address [address] [place] [address] Care Team Providers Care Net Repairer Name Role Phone Handy Elias MD Primary Care Provider [phone] Reason for Referral * Consultation (Routine) - Authorized Specialty Diagnoses / Procedures Referred By Contnanci t Referred To Contact Otolaryngology Diagnoses Other chronic sinusitis Handy Elias MD [address] [place] [address] Phone: tel: fax: [facility] [address] Phone: tel: fax: Referral ID Status Reason Start Date Expiration Date Visits Requested Visits Authorized [id number] Authorized Specialty Services Required 03/25/2024 03/25/2025 1 1 Encounter Details Date Type Department Care Team ([facility] st Contact Info) Description 03/25/2024 Orders Only [facility] [address] [place] [address] Handy Elias MD [address] [place], [place] [phone] Other chronic sinusitis (Primary Dx) Social History [...] Upcoming Encounters Date Type Department Care Team ([facility] st Contact Info) Description 05/08/2024 2:00 PM EDT Office Visit [facility] [address] [place] [address] Handy Elias MD [address] [place] [address] 05/25/2024 3:00 PM EDT Telemedicine [facility] [address] [place] [address] Tessa Cox RN 505 [place] [address] Scheduled Referrals Name Type Priority Associated Diagnoses Orde r Schedule Referral to ENT Outpatient Referral Routine Other chronic sinusitis Expected: 03/25/2024 (Approximate), Expires: 03/25/2025 documented as of this encounter Visit Diagnoses Diagnosis Other chronic sinusitis- Primary documented in this encounter Care Teams Net Repairer Relationship Specialty Start Date End Date Handy Elias MD [address] [place] [phone] PCP - General Internal Medicine 11/17/12 documented as of this encounter
--- OUTSIDE RECORDS SUMMARY | 2024-04-10 12:03 | XMS_ITS | Encounter Summary ---
Author Organization [employer] Address [address] [place] [address] 7 [place] [address] Care Team Providers Care Molder Setter Name Role Phone Handy Elias MD Primary Care Provider [phone] Encounter Details Date Type Department Care Team (Late st Contact Info) Description 05/14/2023 Orders Only [facility] PEDS [address] [place] [address] Handy Elias MD 505 [place] [address] Mood disorder (CMS/HCC) (Primary Dx) Social History [...] [facility] [address] [place] [address] Handy Elias MD [address] [place] [address] 05/25/2024 3:00 PM EDT Telemedicine [facility] [address] [place] [address] Tessa Cox RN 505 [place] [address] documented as of this encounter Visit Diagnoses Diagnosis Mood disorder (CMS/HCC)- Primary Unspecified episodic mood disorder documented in this encounter Care Teams Molder Setter Relationship Specialty Start Date End Date Handy Elias MD [address] [place] [address] PCP - General Internal Medicine 11/17/12 documented as of this encounter
--- OUTSIDE RECORDS SUMMARY | 2024-04-10 12:03 | XMS_ITS | Encounter Summary ---
Author Organization [employer] Address [address] [facility] 7 [place] [address] Care Team Providers Care Sprayer Insecticide Name Role Phone Handy Elias MD Primary Care Provider [phone] Reason for Visit * Reason Onset Date Comments Med Refill 09/18/2023 Encounter Details Date Type Department Care Team (Late st Contact Info) Description 09/18/2023 Telephone [facility] MEDICINE 230 [place] [address] Handy Elias MD 505 [place], [place] [phone] Med Refill Social History Tobacco Use Types [...] refill : Zolpidem To be sent to: [facility]/pharmacy #[id number] - [place] - [address] [place] [address] AT [address], [place] [address] documented in this encounter Plan of Treatment Upcoming Encounters Date Type Department Care Team (Late st Contact Info) Description 05/08/2024 2:00 PM EDT Office Visit [facility] MED & PEDS 505 [place] [address] Handy Elias MD 505 [place] [address] 05/25/2024 3:00 PM EDT Telemedicine [facility] MED [facility] PEDS [address] [place] [address] Tessa Cox RN 505 [place] [address] documented as of this encounter Visit Diagnoses Not on filedocumented in this encounter Care Teams Sprayer Insecticide Relationship Specialty Start Date End Date Handy Elias MD 505 [place] [address] PCP - General Internal Medicine 11/17/12 documented as of this encounter
--- OUTSIDE RECORDS SUMMARY | 2024-04-10 12:03 | XMS_ITS | Clinical Summary ---
Author Organization [employer] Address [address] [place] [address] 7 [place] [address] Care Team Providers Care Pipe Fitter Helper Name Role Phone Handy Elias MD Primary Care Provider [phone] Allergies Active Allergy Reactions Criticality Noted Date [...] Type Department Care Team Description 04/08/2024 Refill [facility] MEDICINE [address] [place] [address] Handy Elias MD Chronic pain syndrome 04/02/2024 Telephone [facility] [address] [place] [address] Renay Almeida, MARITA Results 03/25/2024 Orders Only [facility] [address] [place] [address] Handy Elias MD Other chronic sinusitis (Primary Dx) 03/24/2024 Telephone [facility] MEDICINE [address] [place] [address] Handy Elias MD Results 03/20/2024 Telephone [facility] [address] [place] [address] Handy Elias MD Imaging 03/19/2024 2:00 PM EST Office Visit [facility] [address] [place] [address] Handy Elias MD Abnormal LFTs (Primary Dx); Bruises easily; Fall, initial encounter; Other headache syndrome; SOB (shortness of breath) 03/19/2024 Travel 03/12/2024 Refill [facility] MEDICINE [address] [place] [address] Handy Elias MD Primary insomnia 03/10/2024 Patient Outreach [facility] [address] [place] [address] Handy Elias MD Pre-visit Planning ([facility] unable to reach [facility] ) 03/10/2024 Refill [facility] MED[facility] [address] [place] [address] Handy Elias MD Chronic pain syndrome 03/05/2024 3:00 PM EST Clinical Support [facility] [address] [place] [address] Tessa Cox RN Chronic pain syndrome 03/05/2024 Refill [facility] [address] [place], [place] [phone] Tessa Cox RN Chronic pain syndrome 03/05/2024 Travel 02/14/2024 Refill [facility] [address] [place] [address] Handy Elias MD Primary insomnia 02/11/2024 Refill [facility] [address] [place] [address] Handy Elias MD Chronic pain syndrome 02/09/2024 Refill [facility] [address] [place] [address] Handy Elias MD Deficiency of other specified B group vitamins 2024 Telephone [facility] [address] [place] [address] Handy Elias MD Referral 01/14/2024 Refill [facility] [address] [place] [address] Tessa Cox RN Chronic pain syndrome 01/14/2024 Telephone [facility] [address] [place] [address] Handy Elias MD Med Refill 01/14/2024 Refill [facility] [address] [place] [address] Handy Elias MD Primary insomnia 01/10/2024 Refill [facility] [address] [place] [address] Handy Elias MD Anxiety from Last 3 [...] [facility] [address] [place] [address] Handy Elias MD [address] [place] [address] 05/25/2024 3:00 PM EDT Telemedicine [facility] [address] [place] [address] Tessa Cox RN 505 [place] [address] Health Maintenance Due Date Last Done Comments [...] EST Narrative 03/27/2024 11:51 AM EST ? [facility] Adult Primary Care ?[address] ? [place] [address] ? Ultrasound Report ? Signed ? Patient: Srinivas,Henri F ?MR#: [id number] ?? 79 ? : 1960 ?Acct:[id number] ? Age/Sex: 64 / M ?ADM Date: 03/25/24 ? Loc: HO.HMGCX ? Attending Dr: Handy Elias MD ? Ordering Physician: Handy Elias MD ?? Date of Service: 01/29/25 ?? Procedure(s): US abdomen complete ?? Accession Number(s): [id number] ? cc: Handy Elias MD ? CLINICAL [...] DD/ 1150 ? TD/TT: 03/27/24 1150 ? School Psychology Specialist: ? Procedure Note Kiran, Image - 03/27/2024 [facility] Adult Primary Care [address] [place] [address] Ultrasound Report Signed Patient: Henri Espino FMR#: [id number] [birth year] : 8Acct:[id number] Age/Sex: 64 / MADM Date: 03/25/24 Loc: .HMGX Attending Dr: Handy Elias MD Ordering Physician: Handy Elias MD Date of Service: 03/25/24 Procedure(s): US abdomen complete Accession Number(s): [id number] cc: Handy Elias MD CLINICAL HISTORY: Elevated [...] 03/27/24 1150 DD/ 1150 TD/TT: 03/27/24 1150 School Psychology Specialist: us Handy Elias MD IMG US PROCEDURES Final Res ult * CT Head w/o Contrast (03/23/2024 4:26 PM EST) Anatomical Region Laterality Modality Head, Neck Computed Tomogra phy 03/23/2024 4:26 PM EST Narrative 03/24/2024 7:12 AM EST ? [facility] ?[address] ?[place] [address] ? CT Scan Report ? Signed ? Patient: Srinivas,Henri F ?MR#: [id number] ?? 79 ? : 1960 ?Acct:[id number] ? Age/Sex: 64 / M ?ADM Date: 03/23/24 ? Loc: HO.CT ? Attending Dr: Handy Elias MD ? Ordering Physician: Handy Elias MD ?? Date of Service: 03/23/24 ?? Procedure(s): CT head/brain wo IV con ?? Accession Number(s): [id number] ? cc: Handy Elias MD ? Report Number: ?? [id number]: Total DLP = ??853.00 mGy-cm ?? EXAMINATION: [...] DD/ 1626 ? TD/TT: 03/23/24 1743 ? School Psychology Specialist: MSM ? Procedure Note Donanneliese, Image - 03/24/[address] [place] [address] [address] Scan Report Signed Patient: Henri Espino FMR#: [id number] [birth year] : 8Acct:[id number] Age/Sex: 64 / MADM Date: 03/23/24 Loc: HO.CT Attending Dr: Handy Elias MD Ordering Physician: Handy Elias MD Date of Service: 03/23/24 Procedure(s): CT head/brain wo IV con Accession Number(s): [id number] cc: Handy Elias MD Report Number: [id number]: Total DLP = 853.00 mGy-cm EXAMINATION: CT [...] 03/24/24 0709 DD/ 1626 TD/TT: 03/23/24 1743 School Psychology Specialist: ANTHONY us Handy Elias MD IMG CT PROCEDURES Final Res ult * (ABNORMAL) CBC auto differential (03/23/2024 4:24 PM EST) White Blood Count 9.8 4.8 - 10.8 X10*3/uL [facility] Red Blood Count 5.06 4.60 - 5.80 X10*6/uL [facility] Hemoglobin 15.9 14.0 - 18.0 g/dl [facility] Hematocrit 47.7 42.0 - 52.0 % [facility] Mean Corpuscular Volume 94.3 80.0 - 98.0 fL [facility] Mean Corpuscular Hemoglobin 31.4 27.0 - 33.0 pg [facility] Mean Corpuscular HGB Conc 33.3 31.0 - 36.0 g/dl [facility] Red Cell Distribution Width 14.0 11.0 - 16.0 % [facility] Platelet Count 293 160 - 400 X10*3/uL [facility] Mean Platelet Volume 9.9 9.4 - 12.4 fL [facility] Neutrophils Percent Auto 65.0 45 - 73 % [facility] Imm Gran Pct Auto 2.4(H) 0.0 - 0.4 % [facility] Lymphocytes Percent Auto 19.0(L) 20 - 40 % [facility] Monocytes Percent Auto 10.3 2 - 11 % [facility] Eosinophils Percent Auto 2.6 0 - 4 % [facility] Basophils Percent Auto 0.7 0 - 2 % [facility] NRBC Pct Auto 0.0 0.0 - 0.2 /100WBC [facility] Neutrophils Absolute Auto 6.4 2.0 - 8.3 x10*3/uL [facility] Imm Gran Abs Auto 0.23(H) 0.00 - 0.03 X10*3/uL [facility] Lymphocytes Absolute Auto 1.9 1.2 - 4.9 X10*3/uL [facility] Monocytes Absolute Auto 1.0 0.1 - 1.2 X10*3/uL [facility] Eosinophils Absolute Auto 0.3 0.0 - 0.4 X10*3/uL [facility] Basophils Absolute Auto 0.1 0.0 - 0.2 X10*3/uL [facility] NRBC Abs Auto 0.000 0.0 - 0.012 X10*3/uL [facility] Blood Venous blood specimen / Unknown 03/23/2024 4:24 PM EST 03/23/2024 4:24 PM EST us Handy Elias MD LAB BLOOD ORDERABLES Final Result [facility] [address] [place] [address] [phone] * Partial Thromboplastin Time, Activated (APTT) (03/23/2024 4:24 PM EST) Partial Thromboplastin Time 32.8 26.0 - 36.8 SEC [facility] Comment:For information rega rding the monitoring of direct thrombininhibitors, please refer to Pharmacy. Blood Venous blood specimen / Unknown 03/23/2024 4:24 PM EST 03/23/2024 4:24 PM EST us Handy Elisa MD LAB BLOOD ORDERABLES Final Result Performing Organization Address [facility] Co de Phone Number [facility] [address] [place] [phone] * Prothrombin Time-INR (03/23/2024 4:24 PM EST) Prothrombin Time 11.0 10.9 - 12.4 SEC [facility] INTERNATIONAL NORM RATIO 0.9 0.9 - 1.1 [facility] Comment:INTERNATIONAL NORMAL IZED RATIO (INR) REFERENCE [...] BLOOD ORDERABLES Final Result Performing Organization Address [facility] Co de Phone Number [facility] [address] [place] [phone] * (ABNORMAL) Basic Metabolic Panel (03/23/2024 4:24 PM EST) Sodium 136 135 - 145 mmol/L [facility] Potassium 4.8 3.3 - 5.1 mmol/L [facility] Chloride 105 96 - 108 mmol/L [facility] Carbon Dioxide 23 22 - 29 mmol/L [facility] Anion Gap 13 12 - 20 [facility] Urea Nitrogen (BUN) 18(H) 9 - 16 mg/dL [facility] Creatinine, Serum 1.39 0.5 - 1.4 mg/dL [facility] Estimated Glomerular Filt Rate 51 [facility] Comment:Chronic Kidney Disea se: Estimated GFR < 60 mL/min/1.07b7Gkgtos Kidney Disease: Estimated GFR < 15 mL/min/1.73m2 Glucose 92 60 - 115 mg/dL [facility] Calcium 9.4 8.4 - 10.2 mg/dL [facility] Blood Venous blood specimen / Unknown 03/23/2024 4:24 PM EST 03/23/2024 4:24 PM EST us Handy Elias MD LAB BLOOD ORDERABLES Final Result [facility] [address] [place] [address] [phone] * XR Chest 2 Views (03/23/2024 3:44 PM EST) Anatomical Region Laterality Modality Chest Radiographic Ame ging 03/23/2024 3:44 PM EST Narrative 03/23/2024 5:03 PM EST ? [facility] ?[address] ?[place] [address] ?XRay Report ? Signed ? Patient: Srinivas,Henri F ?MR#: [id number] ?? 79 ? : 1960 ?Acct:[id number] ? Age/Sex: 64 / M ?ADM Date: /27/25 ? Loc: HO.CT ? Attending Dr: Handy Elias MD ? Ordering Physician: Handy Elias MD ?? Date of Service: 03/23/24 ?? Procedure(s): XR chest 2V ?? Accession Number(s): [id number] ? cc: Handy Elias MD ? EXAMINATION: [...] DD/ 1544 ? TD/TT: 03/23/24 1605 ? School Psychology Specialist: MSM ? Procedure Note Kiran, Image - 03/23/2024 [place] [address] XRay Report Signed Patient: Henri Espino FMR#: [id number] 79 : 8Acct:[id number] Age/Sex: 64 / MADM Date: 03/23/24 Loc: HO.CT Attending Dr: Handy Elias MD Ordering Physician: Handy Elias MD Date of Service: 03/23/24 Procedure(s): XR chest 2V Accession Number(s): [id number] cc: Handy Elias MD EXAMINATION: XR CHEST [...] by: Rasheed Jefferson MD 03/23/2024 05:00 PM [facility] Dictated By: Rasheed Jefferson MD Signed By: <Electronically signed by Rasheed Jefferson MD in OV> 03/23/24 1700 DD/ 1544 TD/TT: 03/23/24 1605 School Psychology Specialist: ANTHONY us Handy Elias MD IMG XR PROCEDURES Final Res ult * POCT SAL-14 Urine Drug Screen (03/05/2024 3:06 PM EST) Oxycodone Screen, Urine Positive Urine Urine specimen obtained by clean catch procedure / Unknown 03/05/2024 3:06 PM EST Narrative Tessa Cox RN - 03/05/2024 3:06 PM EST Lot# [id number] Exp: 01-31-25 us Handy Elias MD POINT [...] Recently Relevant to Health Maintenance Insurance [place] [address] [place] [id number] [facility] MED CARE Care Teams Pipe Fitter Helper Relationship Specialty Start Date End Date Handy Elias MD [address] [place] [phone] PCP - General Internal Medicine 11/17/12
== END 2024-04-10 11:48 | disposition home or self-care (01) ==
PROVIDERS: PCP Family Medicine; Visit Provider Hospitalist
DX: G47.33 Obstructive sleep apnea (adult) (pediatric) (principal); Z99.89 Dependence on other enabling machines and devices; J44.9 Chronic obstructive pulmonary disease, unspecified; R05.3 Chronic cough; J30.9 Allergic rhinitis, unspecified; R53.1 Weakness; J01.90 Acute sinusitis, unspecified; J98.11 Atelectasis
CPT/HCPCS: 99214; G2211

== ENCOUNTER → 2024-04-10 11:08 | Outpatient (BNVA) | payer MEDICARE, SELFPAY | PROVIDERS: PCP Family Medicine; Visit Provider Hospitalist | DX: G47.33 Obstructive sleep apnea (adult) (pediatric) (principal); J44.9 Chronic obstructive pulmonary disease, unspecified; J32.9 Chronic sinusitis, unspecified; J98.11 Atelectasis; R05.3 Chronic cough; Z99.89 Dependence on other enabling machines and devices | CPT/HCPCS: 99212 ==

== ENCOUNTER 2024-04-22 11:24 | Outpatient (AMB) | payer MEDICARE, SELFPAY ==
--- NOTE | 2024-04-22 11:29 | HO.NEPHOV_ITS ---
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: No Accompanied by: Spouse Allergies Seasonal Allergies Allergy (Verified 04/22/24 11:33) Runny Nose Medication List - Last Reconciled 04/22/24 by Silver Marie MD acetaminophen ER 1 tab PO Q8H PRN albuterol sulfate 2.5 mg (3 mL) inhalation Q4H PRN 90 days alendronate 70 mg PO QWEEK amlodipine 5 mg PO DAILY budesonide 0.5 mg (2 mL) inhalation DAILY 30 days cholecalciferol (vitamin D3) 50 mcg PO DAILY codeine-guaifenesin 10-100 mg/5 mL 10 mL PO Q6H PRN 10 days cyanocobalamin (vitamin B-12) mcg IM cyclobenzaprine 1 tab PO BID PRN desvenlafaxine succinate ER (Pristiq) 25 mg PO DAILY docusate sodium 1 cap PO BID PRN epinephrine (EpiPen 2-Oc) 0.3 mg (0.3 mL) IM Q10M PRN 30 days nebulizers As directed omeprazole 20 mg PO DAILY PRN ondansetron HCl 4 mg PO DAILY PRN oxycodone 1 tab PO Q4-6H PRN propranolol 10 mg PO DAILY PRN roflumilast (Daliresp) 500 mcg PO DAILY 90 days sildenafil 100 mg PO DAILY PRN sodium chloride 3.5% 4 mL inhalation BID 30 days sodium chloride 3% 4 mL inhalation BID 30 days Ventolin HFA 90 mcg/actuation (albuterol sulfate) 2 puffs inhalation Q6H PRN 30 days NS zolpidem 10 mg PO BEDTIME PRN HPI Comments Details: Henri is a middle-aged man with history of obesity hypertension and mild CKD. He is complaining of generalized weakness in the muscles. He is undergoing physical therapy without much improvement. He has been receiving steroid injections for the bursitis. He also has ecchymosis in both upper extremities. Seen by Hematology and Oncology in the past and no significant pathology was documented. 04/22/24 After stopping Rosuvastatin, muscle weakness has significantly improved. He has gained about 20 lbs since last visit BP has increased ! 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) Sciatica (~11/24/12) Osteoporosis (~09/20/17) Obstructive sleep apnea syndrome (~01/04/10) Low back pain (~07/14/12) Hypertension (~07/14/12) Erectile dysfunction (~11/24/12) Hypercholesterolemia (~07/14/12) Chronic kidney disease, stage 3 (~09/22/17) Chronic pain syndrome (~11/20/16) Chronic cough Chronic allergic rhinitis Hyperlipidemia JENN on CPAP Asthma-COPD overlap syndrome Dyspnea Cough Asthma Sinusitis Osteoarthritis of knees, bilateral Spondylosis of cervical joint without myelopathy Surgical History History of colonoscopy (~10/16/21) Family History Father Parkinson disease Mother Sister Obesity Hypertension Social History Household Members: Spouse Housing: House Patient Tobacco Use Status: Former Tobacco user Tobacco use type: Cigarette Cigarette Packs Per Day: 1 Years Smoked: 30 years service: No Current occupational status: unemployed Physical Exam Vital Signs: Last Vital Signs Pulse 64 04/22/24 11:30 BP 170/90 H 04/22/24 11:30 Pulse Ox 98 04/22/24 11:30 Oxygen Delivery Method Room Air 04/22/24 11:30 BMI result Body Mass Index 38.8 Const General: comfortable Nutritional Appearance: well nourished Orientation/consciousness: patient oriented x3 HEENT Head: No normal to inspection Mouth: moist mucous membranes Neck Neck: Yes supple and Yes no JVD Resp Auscultation: clear to auscultation bilaterally, no rales and rub present Cardio Jugular venous distension: no JVD Palpation: no palpable S3 and no palpable S4 Heart sounds: no rubs GI Palpation (GI): Soft to palpation and nontender Percussion: No Fluid wave present General: Yes no CVA tenderness Back/Spine/Pelvis Back: no CVA tenderness Skin General skin exam: ecchymosis Neuro General: patient oriented x3 Extrem General: Yes no pedal edema and No clubbing Results Reviewed Nephrology Results: Hgb 15.9 g/dl (14.0-18.0) 03/23/24 WBC 9.8 X10*3/uL (4.8-10.8) 03/23/24 Plt Count 293 X10*3/uL (160-400) 03/23/24 Sodium 140 mmol/L (135-145) 04/09/24 Potassium 4.1 mmol/L (3.3-5.1) 04/09/24 Chloride 108 mmol/L (96-108) 04/09/24 Carbon Dioxide 23 mmol/L (22-29) 04/09/24 BUN 18 mg/dL (9-16) H 04/09/24 Creatinine 1.26 mg/dL (0.5-1.4) 04/09/24 Calcium 9.6 mg/dL (8.4-10.2) 04/09/24 Assessment & Plan Assessment & Plan (1) Hypertension: Onset Date: ~07/14/12 Code(s): I10 - Essential (primary) hypertension Category: Medical Plan: Blood pressure is sub optmal. Stay on low-sodium diet Needs weight loss. Will Increase Amlodipine 7.5 mg daily . Plan Mild CKd Creatinine is stable. . Orders: Orders Basic Metabolic Panel 6 Months I10 - Essential (primary) hypertension Lipid Panel 3 Months I10 - Essential (primary) hypertension Basic Metabolic Panel 3 Months I10 - Essential (primary) hypertension Medications: New fluvastatin 20 mg PO DAILY 30 caps 3RF Changed From amlodipine 5 mg PO DAILY 90 tabs 2RF To amlodipine 7.5 mg (1.5 x 5 mg) PO DAILY 90 tabs 2RF Refilled ondansetron HCl 4 mg PO DAILY PRN 30 tabs 3RF nausea and vomiting Coding Level of Care Code Est Pt Level 4 (32748) Diagnoses Hypertension I10
[2024-04-22 11:30] VITALS: BP 170/90; PULSE 64; O2SAT 98; BMI 38.8
--- OUTSIDE RECORDS SUMMARY | 2024-04-22 14:20 | XMS_ITS | Encounter Summary ---
Author Organization [facility] Address [address] [place] [address] Phone Care Team Providers Care Baseball U[employer] Name Role Phone Handy Elias MD Primary Care Provider [phone] Encounter Details Date Type Department Care Team (Late st Contact Info) Description 2022 Telephone [facility] [address] [place] [address] Christie Leone Social History Tobacco [...] on filedocumented in this encounter Care Teams [employer] Relationship Specialty Start Date End Date Handy Elias MD PCP - General Internal Medicine 10/19/20 documented as of this encounter
--- OUTSIDE RECORDS SUMMARY | 2024-04-22 14:20 | XMS_ITS | Encounter Summary ---
Author Organization [facility] [employer] [facility] Address [address] [place] [address] 7 [place] [address] Care Team Providers Care Tavern Car Attendant Name Role Phone Handy Elias MD Primary Care Provider [phone] Reason for Referral * Imaging (Routine) - Closed Specialty Diagnoses / Procedures Referred By Maurice t Referred To Contact Radiology Diagnoses Abnormal LFTs Procedures US Abdomen Complete Handy Elias MD [address] [place] [address] Phone: tel: fax: [address] Phone: tel: fax: Referral ID Status Reason Start Date Expiration Date Visits Re quested Visits Authorized [id number] Closed 03/19/2024 03/19/2025 1 1 * Imaging (Urgent) - Closed Specialty Diagnoses / Procedures Referred By Contac t Referred To Contact Radiology Diagnoses Other headache syndrome Procedures CT Head w/o Contrast Handy Elias MD [address] [place] [address] Phone: tel: fax: [address] Phone: tel: fax: Referral ID Status Reason Start Date Expiration Date Visits Re quested Visits Authorized [id number] Closed 03/19/2024 03/19/2025 1 1 * Imaging (Routine) - Canceled Specialty Diagnoses / Procedures Referred By Maurice weaver Referred To Contact Radiology Diagnoses Abnormal LFTs Procedures US Abdomen Complete Handy Elias MD [address] [place] [address] Phone: tel: fax: [address] Phone: tel: fax: Referral ID Status Reason Start Date Expiration Date V isits Requested Visits Authorized [id number] Canceled 03/19/2024 03/19/2025 1 1 Reason for Visit * Reason Comments History of fall Encounter Details Date Type Department Care Team (Late st Contact Info) Description 03/19/2024 2:00 PM EST Office Visit [facility] [address] [place] [address] Handy Elias MD [address] [place] [address] Abnormal LFTs (Primary Dx); Bruises easily; Fall, [...] BY INTRAMUSCULAR ROUTE ONCE A MONTH FOR [id number] INJECTIONS 12 each 1 cholecalciferol (Vitamin D-3) [...] [facility] [address] [place] [address] Handy Elias MD [address] [place] [address] 05/25/2024 3:00 PM EDT Telemedicine [facility] [address] [place] [address] Tessa Cox RN [address] [place] [address] Scheduled Orders Name Type Priority Associated Diagnoses [...] Adult Primary Care ?[address] ? [place] [address] ? Ultrasound Report ? Signed ? Patient: Warsaw,Henri F ?MR#: [id number] ?? 79 ? : 1960 ?Acct:[id number] ? Age/Sex: 64 / M ?ADM Date: 03/25/24 ? Loc: HO.HMGCX ? Attending Dr: Handy Elias MD ? Ordering Physician: Handy Elias MD ?? Date of Service: 03/25/24 ?? Procedure(s): US abdomen complete ?? Accession Number(s): [id number] ? cc: Handy Elias MD ? CLINICAL [...] DD/ 49 ? TD/TT: 03/27/24 1150 ? Landfill Gas Collection Operator: ? Procedure Note Donotuseinterpreter, Image - 03/27/2024 [facility] Adult Primary Care [address] [place] [address] [place] [address] Ultrasound Report Signed Patient: Henri Espino FMR#: [id number] 79 : 8Acct:[id number] Age/Sex: 64 / MADM Date: 03/25/24 Loc: HO.HMGCX Attending Dr: Handy Elias MD Ordering Physician: Handy Elias MD Date of Service: 03/25/24 Procedure(s): US abdomen complete Accession Number(s): [id number] cc: Handy Elias MD CLINICAL HISTORY: Elevated [...] 03/27/24 1150 DD/ 1150 TD/TT: 03/27/24 1150 Landfill [employer] Collection Operator: us Handy Elias MD IMG US PROCEDURES Final Res ult * CT Head w/o Contrast (03/23/2024 4:26 PM EST) Anatomical Region Laterality Modality Head, Neck Computed Tomogra phy 03/23/2024 4:26 PM EST Narrative 03/24/2024 7:12 AM EST ? [facility] ?[address] ?[place] [address] ? CT Scan Report ? Signed ? Patient: Henri Espino ?MR#: [id number] ?? 79 ? : 1960 ?Acct:[id number] ? Age/Sex: 64 / M ?ADM Date: 03/23/24 ? Loc: HO.CT ? Attending Dr: Handy Elias MD ? Ordering Physician: Handy Elias MD ?? Date of Service: 03/23/24 ?? Procedure(s): CT head/brain wo IV con ?? Accession Number(s): [id number] ? cc: Handy Elias MD ? Report Number: ?? [id number]: Total DLP = ??853.00 mGy-cm ?? EXAMINATION: [...] DD/ 1626 ? TD/TT: 03/23/24 1743 ? Landfill Gas Collection Operator: MSM ? Procedure Note Bri Beck - 03/24/[address] [address] [address] Scan Report Signed Patient: Henri Espino FMR#: [id number] [birth year] : 8Acct:[id number] Age/Sex: 64 / MADM Date: 03/23/24 Loc: HO.CT Attending Dr: Handy Elias MD Ordering Physician: Handy Elias MD Date of Service: 03/23/24 Procedure(s): CT head/brain wo IV con Accession Number(s): [id number] cc: Handy Elias MD Report Number: [id number]: Total DLP = 853.00 mGy-cm EXAMINATION: CT [...] OV> 03/24/24 0709 DD/ 1626 TD/TT: 03/23/24 5043 Landfill Gas Collection Operator: [facility] us Handy Elias MD [facility] CT PROCEDURES Final Res ult * Partial Thromboplastin Time, Activated (APTT) (03/23/2024 4:24 PM EST) [facility] Signature Partial Thromboplastin Time 32.8 26.0 - 36.8 SEC [facility] Comment:For information rega rding the monitoring of direct thrombininhibitors, please refer to Pharmacy. Blood Venous blood specimen / Unknown 03/23/2024 4:24 PM EST 03/23/2024 4:24 PM EST us Handy Elias MD LAB BLOOD ORDERABLES Final Result Performing Organization Address [facility] Co de Phone Number [facility] [address] [place] [phone] * Prothrombin Time-INR (03/23/2024 4:24 PM EST) Prothrombin Time 11.0 10.9 - 12.4 SEC [facility] INTERNATIONAL NORM RATIO 0.9 0.9 - 1.1 [facility] Comment:INTERNATIONAL NORMAL IZED RATIO [...] BLOOD ORDERABLES Final Result Performing Organization Address [facility] Co de Phone Number [facility] [address] [place] [phone] * (ABNORMAL) Basic Metabolic Panel (03/23/2024 4:24 PM EST) Sodium 136 135 - 145 mmol/L [facility] Potassium 4.8 3.3 - 5.1 mmol/L [facility] Chloride 105 96 - 108 mmol/L [facility] Carbon Dioxide 23 22 - 29 mmol/L [facility] Anion Gap 13 12 - 20 [facility] Urea Nitrogen (BUN) 18(H) 9 - 16 mg/dL [facility] Creatinine, Serum 1.39 0.5 - 1.4 mg/dL [facility] Estimated Glomerular Filt Rate 51 [facility] Comment:Chronic Kidney Disea se: Estimated GFR < 60 mL/min/1.71d3Zoyxtx Kidney Disease: Estimated GFR < 15 mL/min/1.73m2 Glucose 92 60 - 115 mg/dL [facility] Calcium 9.4 8.4 - 10.2 mg/dL [facility] Blood Venous blood specimen / Unknown 03/23/2024 4:24 PM EST 03/23/2024 4:24 PM EST us Handy Elias MD LAB BLOOD ORDERABLES Final Result [facility] [address] [place] [phone] * (ABNORMAL) CBC auto differential (03/23/2024 4:24 PM EST) White Blood Count 9.8 4.8 - 10.8 X10*3/uL [facility] Red Blood Count 5.06 4.60 - 5.80 X10*6/uL [facility] Hemoglobin 15.9 14.0 - 18.0 g/dl [facility] Hematocrit 47.7 42.0 - 52.0 % [facility] Mean Corpuscular Volume 94.3 80.0 - 98.0 fL [facility] Mean Corpuscular Hemoglobin 31.4 27.0 - 33.0 pg [facility] Mean Corpuscular HGB Conc 33.3 31.0 - 36.0 g/dl [facility] Red Cell Distribution Width 14.0 11.0 - 16.0 % [facility] Platelet Count 293 160 - 400 X10*3/uL [facility] Mean Platelet Volume 9.9 9.4 - 12.4 fL [facility] Neutrophils Percent Auto 65.0 45 - 73 % [facility] Imm Gran Pct Auto 2.4(H) 0.0 - 0.4 % [facility] Lymphocytes Percent Auto 19.0(L) 20 - 40 % [facility] Monocytes Percent Auto 10.3 2 - 11 % [facility] Eosinophils Percent Auto 2.6 0 - 4 % [facility] Basophils Percent Auto 0.7 0 - 2 % [facility] NRBC Pct Auto 0.0 0.0 - 0.2 /100WBC [facility] Neutrophils Absolute Auto 6.4 2.0 - 8.3 x10*3/uL [facility] Imm Gran Abs Auto 0.23(H) 0.00 - 0.03 X10*3/uL [facility] Lymphocytes Absolute Auto 1.9 1.2 - 4.9 X10*3/uL [facility] Monocytes Absolute Auto 1.0 0.1 - 1.2 X10*3/uL [facility] Eosinophils Absolute Auto 0.3 0.0 - 0.4 X10*3/uL [facility] Basophils Absolute Auto 0.1 0.0 - 0.2 X10*3/uL [facility] NRBC Abs Auto 0.000 0.0 - 0.012 X10*3/uL [facility] Blood Venous blood specimen / Unknown 03/23/2024 4:24 PM EST 03/23/2024 4:24 PM EST us Handy Elias MD LAB BLOOD ORDERABLES Final Result [facility] [address] [place] [phone] * XR Chest 2 Views (03/23/2024 3:44 PM EST) Anatomical Region Laterality Modality Chest Radiographic Ame ging 03/23/2024 3:44 PM EST Narrative 03/23/2024 5:03 PM EST ? [place] [facility] ?[address] ?[place] [address] ?XRay Report ? Signed ? Patient: Srinivas,Henri F ?MR#: [id number] ?? 79 ? : 1960 ?Acct:[id number] ? Age/Sex: 64 / M ?ADM Date: 03/23/24 ? Loc: HO.CT ? Attending Dr: Handy Elias MD ? Ordering Physician: Handy Elias MD ?? Date of Service: 03/23/24 ?? Procedure(s): XR chest 2V ?? Accession Number(s): [id number] ? cc: Handy Elias MD ? EXAMINATION: [...] DD/ 1544 ? TD/TT: 03/23/24 1605 ? Landfill Gas Collection Operator: MSM ? Procedure Note Bri Beck - 03/23/[address] [address] XRay Report Signed Patient: Henri Espino FMR#: [id number] 79 : 8Acct:[id number] Age/Sex: 64 / MADM Date: 03/23/24 Loc: HO.CT Attending Dr: Handy Elias MD Ordering Physician: Handy Elias MD Date of Service: 03/23/24 Procedure(s): XR chest 2V Accession Number(s): [id number] cc: Handy Elias MD EXAMINATION: XR CHEST [...] 03/23/24 1700 DD/ 1544 TD/TT: 03/23/24 1605 Landfill Gas Collection Operator: [facility] Handy Elias MD IMG XR PROCEDURES Final Res ult documented in this encounter Visit Diagnoses Diagnosis Abnormal LFTs- Primary Bruises easily Other symptoms involving skin and integumentary tissues Fall, initial encounter Other headache syndrome SOB (shortness of breath) Shortness of breath documented in this encounter Care Teams Tavern Car Attendant Relationship Specialty Start Date End Date Hanyd Elias MD [address] [place] [address] PCP - General Internal Medicine 11/17/12 documented as of this encounter
--- OUTSIDE RECORDS SUMMARY | 2024-04-22 14:20 | XMS_ITS | Encounter Summary ---
Author Organization [employer] Address [address] [facility] 7 [place] [address] Care Team Providers Care Front Edger Name Role Phone Handy Elias MD Primary Care Provider [phone] Reason for Visit * Reason Onset Date Comments Med Refill 01/14/2024 Encounter Details Date Type Department Care Team (Late st Contact Info) Description 01/14/2024 Telephone [facility] [address] [place] [address] Handy Elias MD [address] [place], [place] [phone] Med Refill Social History Tobacco Use Types [...] immediate release tablet To be sent to: [facility]/pharmacy #[id number] - [place], [place] - [address] [place] [address] documented in this encounter Plan of Treatment Upcoming Encounters Date Type Department Care Team (Late st Contact Info) Description 05/08/2024 2:00 PM EDT Office Visit [facility] [address] [place] [address] Handy Elias MD [address] [place] [address] 05/25/2024 3:00 PM EDT Telemedicine [facility] [address] [place] [address] Tessa Cox RN [address] [place] [address] documented as of this encounter Visit Diagnoses Not on filedocumented in this encounter Care Teams Front Edger Relationship Specialty Start Date End Date Handy Elias MD [address] [place] [address] PCP - General Internal Medicine 11/17/12 documented as of this encounter
--- OUTSIDE RECORDS SUMMARY | 2024-04-22 14:20 | XMS_ITS | Clinical Summary ---
Author Organization [employer] Address [address] [place] [address] 7 [place] [address] Care Team Providers Care Phlebotomist Medical Lab Assistant Name Role Phone Handy Elias MD Primary Care Provider [phone] Allergies Active Allergy Reactions Criticality Noted Date [...] BEDTIME NEEDED FOR SLEEP 30 tablet 025 2024 Discontinued Active Problems Problem Noted Date [...] Encounters Date Type Department Care Team Description 04/12/2024 Refill [facility] [address] [place] [address] Handy Elias MD Primary insomnia 04/08/2024 Refill [facility] [address] [place] [address] Handy Elias MD Chronic pain syndrome 04/02/2024 Telephone [facility] [address] [place] [address] Renay Almeida, RN Results 03/25/2024 Orders Only [facility] [address] [place] [address] Handy Elias MD Other chronic sinusitis (Primary Dx) 03/24/2024 Telephone [facility] [address] [place] [address] Handy Elias MD Results 03/20/2024 Telephone [facility] [address] [place] [address] Handy Elias MD Imaging 03/19/2024 2:00 PM EST Office Visit [facility] [address] [place] [address] Handy Elias MD Abnormal LFTs (Primary Dx); Bruises easily; Fall, initial encounter; Other headache syndrome; SOB (shortness of breath) 03/19/2024 Travel 03/12/2024 Refill [facility] [address] [facility] [place] [address] Handy Elias MD Primary insomnia 03/10/2024 Patient Outreach [facility] [address] [place] [address] Handy Elias MD Pre-visit Planning ([facility] unable to reach [facility] ) 03/10/2024 Refill [facility] [address] [place] [address] Handy Elias MD Chronic pain syndrome 03/05/2024 3:00 PM EST Clinical Support [facility] [address] [place] [address] Tessa Cxo RN Chronic pain syndrome 03/05/2024 Refill [facility] [address] [place] [address] Tessa Cox RN Chronic pain syndrome 03/05/2024 Travel 02/14/2024 Refill [facility] [address] [place] [address] Handy Elias MD Primary insomnia 02/11/2024 Refill [facility] [address] [place] [address] Handy Elias MD Chronic pain syndrome 02/09/2024 Refill [facility] [address] [place] [address] Handy Elias MD Deficiency of other specified B group vitamins 2024 Telephone [facility] [address] [place] [address] Handy Elias MD Referral from Last 3 Months Immunizations Name Administration [...] the past 12 months, has t he [employer], gas, oil or water [employer] threatened to shut off services in your [...] PM EDT Office Visit [facility] [address] [place] [address] Handy Elias MD [address] [place] [address] 05/25/2024 3:00 PM EDT Telemedicine [facility] [address] [place] [address] Tessa Cox, MARITA [address] [place] [address] Health Maintenance Due Date Last Done Comments [...] LFTs CT HEAD WO CONTRAST Urgent 03/23/2024 4:26 PM EST Other headache syndrome APTT Routine [...] Adult Primary Care ?[address] ? [place] [address] ? Ultrasound Report ? Signed ? Patient: Srinivas,Henri F ?MR#: [id number] ?? 79 ? : 1960 ?Acct:[id number] ? Age/Sex: 64 / M ?ADM Date: 03/25/24 ? Loc: HO.HMGCX ? Attending Dr: Handy Elias MD ? Ordering Physician: Handy Elias MD ?? Date of Service: 03/25/24 ?? Procedure(s): US abdomen complete ?? Accession Number(s): [id number] ? cc: Handy Elias MD ? CLINICAL [...] DD/ 1150 ? TD/TT: 03/27/24 1150 ? Exchange Engineer: ? Procedure Note Donmary annmicheleliater, Image - 03/27/2024 [facility] [address] [place] [address] [place] [address] Ultrasound Report Signed Patient: Henri Espino FMR#: [id number] [birth year] : 8Acct:[id number] Age/Sex: 64 / MADM Date: 03/25/24 Loc: [facility] Attending Dr: Handy Elias MD Ordering Physician: Handy Elias MD Date of Service: 03/25/24 Procedure(s): US abdomen complete Accession Number(s): [id number] cc: Handy Elias MD CLINICAL HISTORY: Elevated [...] 03/27/24 1150 DD/ 1150 TD/TT: 03/27/24 1150 Exchange Engineer: us Handy Elias MD IMG US PROCEDURES Final Res ult * CT Head w/o Contrast (03/23/2024 4:26 PM EST) Anatomical Region Laterality Modality Head, Neck Computed Tomogra phy 03/23/2024 4:26 PM EST Narrative 03/24/2024 7:12 AM EST ? [facility] ?[address] ?[place] [address] ? CT Scan Report ? Signed ? Patient: Srinivas,Henri F ?MR#: [id number] ?? 79 ? : 1960 ?Acct:[id number] ? Age/Sex: 64 / M ?ADM Date: 01/27/25 ? Loc: HO.CT ? Attending Dr: Handy Elias MD ? Ordering Physician: Handy Elias MD ?? Date of Service: 03/23/24 ?? Procedure(s): CT head/brain wo IV con ?? Accession Number(s): [id number] ? cc: Handy Elias MD ? Report Number: ?? [id number]: Total DLP = ??853.00 mGy-cm ?? EXAMINATION: [...] ethmoid sinus.. ? Electronically signed by: ??Rasheed Li MD ??03/24/2024 07:09 AM EST RP ? Dictated By: ?Li,Rasheed S MD ? Signed By: ?<Electronically signed by Rasheed S Li, MD in OV> ?03/24/24 0709 ? DD/ 1626 ? TD/TT: 03/23/24 1743 ? Exchange Engineer: MSM ? Procedure Note Donotuseinterpreter, Image - 03/24/[address] [address] [address] Scan Report Signed Patient: Henri Espino FMR#: [id number] [birth year] : 8Acct:[id number] Age/Sex: 64 / MADM Date: 03/23/24 Loc: HO.CT Attending Dr: Handy Elias MD Ordering Physician: Handy Elias MD Date of Service: 03/23/24 Procedure(s): CT head/brain wo IV con Accession Number(s): [id number] cc: Handy Elias MD Report Number: [id number]: Total DLP = 853.00 mGy-cm EXAMINATION: CT [...] 03/24/24 0709 DD/ 1626 TD/TT: 03/23/24 1743 Exchange Engineer: ANTHONY us Handy Elias MD IMG CT PROCEDURES Final Res ult * (ABNORMAL) CBC auto differential (03/23/2024 4:24 PM EST) White Blood Count 9.8 4.8 - 10.8 X10*3/uL [facility] Red Blood Count 5.06 4.60 - 5.80 X10*6/uL [facility] Hemoglobin 15.9 14.0 - 18.0 g/dl [facility] Hematocrit 47.7 42.0 - 52.0 % [facility] Mean Corpuscular Volume 94.3 80.0 - 98.0 fL [facility] Mean Corpuscular Hemoglobin 31.4 27.0 - 33.0 pg [facility] Mean Corpuscular HGB Conc 33.3 31.0 - 36.0 g/dl [facility] Red Cell Distribution Width 14.0 11.0 - 16.0 % [facility] Platelet Count 293 160 - 400 X10*3/uL [facility] Mean Platelet Volume 9.9 9.4 - 12.4 fL [facility] Neutrophils Percent Auto 65.0 45 - 73 % [facility] Imm Gran Pct Auto 2.4(H) 0.0 - 0.4 % [facility] Lymphocytes Percent Auto 19.0(L) 20 - 40 % [facility] Monocytes Percent Auto 10.3 2 - 11 % [facility] Eosinophils Percent Auto 2.6 0 - 4 % [facility] Basophils Percent Auto 0.7 0 - 2 % [facility] NRBC Pct Auto 0.0 0.0 - 0.2 /100WBC [facility] Neutrophils Absolute Auto 6.4 2.0 - 8.3 x10*3/uL [facility] Imm Gran Abs Auto 0.23(H) 0.00 - 0.03 X10*3/uL [facility] Lymphocytes Absolute Auto 1.9 1.2 - 4.9 X10*3/uL [facility] Monocytes Absolute Auto 1.0 0.1 - 1.2 X10*3/uL [facility] Eosinophils Absolute Auto 0.3 0.0 - 0.4 X10*3/uL [facility] Basophils Absolute Auto 0.1 0.0 - 0.2 X10*3/uL [facility] NRBC Abs Auto 0.000 0.0 - 0.012 X10*3/uL [facility] Blood Venous blood specimen / Unknown 03/23/2024 4:24 PM EST 03/23/2024 4:24 PM EST us Handy Elias MD LAB BLOOD ORDERABLES Final Result Performing Organization Address [facility]/ZIP Co de Phone Number [facility] [address] [place] [phone] * Partial Thromboplastin Time, Activated (APTT) (03/23/2024 4:24 PM EST) Partial Thromboplastin Time 32.8 26.0 - 36.8 SEC [facility] Comment:For information rega rding the monitoring of direct thrombininhibitors, please refer to Pharmacy. Blood Venous blood specimen / Unknown 03/23/2024 4:24 PM EST 03/23/2024 4:24 PM EST us Handy Elias MD LAB BLOOD ORDERABLES Final Result Performing Organization Address City/[facility]/ZIP Co de Phone Number [facility] [address] [place] [phone] * Prothrombin Time-INR (03/23/2024 4:24 PM EST) Prothrombin Time 11.0 10.9 - 12.4 SEC [facility] INTERNATIONAL NORM RATIO 0.9 0.9 - 1.1 [facility] Comment:INTERNATIONAL NORMAL IZED RATIO (INR) [...] Elias MD LAB BLOOD ORDERABLES Final Result [facility] [address] [place] [address] [phone] * (ABNORMAL) Basic Metabolic Panel (03/23/2024 4:24 PM EST) Pathologist [facility] Sodium 136 135 - 145 mmol/L [facility] Potassium 4.8 3.3 - 5.1 mmol/L [facility] Chloride 105 96 - 108 mmol/L [facility] Carbon Dioxide 23 22 - 29 mmol/L [facility] Anion Gap 13 12 - 20 [facility] Urea Nitrogen (BUN) 18(H) 9 - 16 mg/dL [facility] Creatinine, Serum 1.39 0.5 - 1.4 mg/dL [facility] Estimated Glomerular Filt Rate 51 [facility] Comment:Chronic Kidney Disea se: Estimated GFR < 60 mL/min/1.26a7Nluycy Kidney Disease: Estimated GFR < 15 mL/min/1.73m2 Glucose 92 60 - 115 mg/dL [facility] Calcium 9.4 8.4 - 10.2 mg/dL [facility] Blood Venous blood specimen / Unknown 03/23/2024 4:24 PM EST 03/23/2024 4:24 PM EST us Handy Elias MD LAB BLOOD ORDERABLES Final Result [facility] [address] [facility] [place] [address] [phone] * XR Chest 2 Views (03/23/2024 3:44 PM EST) Anatomical Region Laterality Modality Chest Radiographic Ame ging 03/23/2024 3:44 PM EST Narrative 03/23/2024 5:03 PM EST ? [facility] ?[address] ?[place] [address] ?XRay Report ? Signed ? Patient: Srinivas,Henri F ?MR#: [id number] ?? 79 ? : 1960 ?Acct:[id number] ? Age/Sex: 64 / M ?ADM Date: 03/23/24 ? Loc: HO.CT ? Attending Dr: Handy Elias MD ? Ordering Physician: Handy Elias MD ?? Date of Service: 03/23/24 ?? Procedure(s): XR chest 2V ?? Accession Number(s): [id number] ? cc: Handy Elias MD ? EXAMINATION: [...] DD/ 1544 ? TD/TT: 03/23/24 1605 ? Exchange Engineer: MSM ? Procedure Note Kiran, Image - 03/23/[address] [address] XRay Report Signed Patient: Henri Espino FMR#: [id number] 79 : 8Acct:[id number] Age/Sex: 64 / MADM Date: 03/23/24 Loc: HO.CT Attending Dr: Handy Elias MD Ordering Physician: Handy Elias MD Date of Service: 03/23/24 Procedure(s): XR chest 2V Accession Number(s): [id number] cc: Handy Elias MD EXAMINATION: XR CHEST [...] 03/23/24 1700 DD/ 1544 TD/TT: 03/23/24 1605 Exchange Engineer: ANTHONY us Handy Elias MD IMG XR PROCEDURES Final Res ult * POCT SAL-14 Urine Drug Screen (03/05/2024 3:06 PM EST) Oxycodone Screen, Urine Positive Urine Urine specimen obtained by clean catch procedure / Unknown 03/05/2024 3:06 PM EST Narrative Tessa Cox RN - 03/05/2024 3:06 PM EST Lot# [id number] Exp: 01-31-25 us Handy Elias MD POINT [...] LABS * [facility] Colonoscopy (05/28/2013) Colonoscopy Performed Historical Provider HEALTH MAINTENANCE Final Result from Last 3 Months or Most Recently Relevant to Health Maintenance Insurance MEDICARE Member Subscriber Plan / Payer (Ef fective 2023-Present) Name:Henri Esipno Member ID:[id number] Relation to Subscriber:Self Name:Henri Espino Subscriber ID:[id number] Payer ID:STATE Group ID:Not on file Type:Medicare Address: [facility] [phone] [facility] MEDEX CARE Care Teams Phlebotomist Medical Lab Assistant Relationship Specialty Start Date End Date Handy Elias MD [address] [place] [address] [place] [address] PCP - General Internal Medicine 11/17/12
--- OUTSIDE RECORDS SUMMARY | 2024-04-22 14:20 | XMS_ITS | Encounter Summary ---
Author Organization [employer] Address [address] [place] [address] 7 [place] [address] Care Team Providers Care Valver Name Role Phone Handy Elias MD Primary Care Provider [phone] Encounter Details Date Type Department Care Team (Late Contact Info) Description 10/10/2022 Orders Only [facility] [address] [place], [place] [phone] Handy Elias MD [address] [place], [place] [phone] Social History Tobacco Use Types Packs/Day Years [...] Office Visit [facility] [address] [place], [place] [phone] Handy Elias MD [address] [place] [address] 05/25/2024 3:00 PM EDT Telemedicine [facility] [address] [place], [place] [phone] Tessa Cox, MARITA [address] [place] [address] documented as of this encounter Visit Diagnoses Not on filedocumented in this encounter Care Teams Valver Relationship Specialty Start Date End Date Handy Elias MD [address] [place] [address] PCP - General Internal Medicine 11/17/12 documented as of this encounter
--- OUTSIDE RECORDS SUMMARY | 2024-04-22 14:20 | XMS_ITS | Encounter Summary ---
Author Organization [employer] Address [address] [facility] 7 [place] [address] Care Team Providers Care Occupational Health Nurse Name Role Phone Handy Elias MD Primary Care Provider [phone] Reason for Visit * Reason Onset Date Comments Med Refill 09/23/2023 Encounter Details Date Type Department Care Team (Late st Contact Info) Description 09/23/2023 Telephone [facility] [address] [place] [address] Handy Elias MD [address] [place], [place] [phone] Med Refill Social History Tobacco Use Types [...] immediate release tablet To be sent to: [facility]/pharmacy #[id number] - [place], [place] - [address] [facility] [address] [facility] [place] [address] documented in this encounter Plan of Treatment Upcoming Encounters Date Type Department Care Team (Late st Contact Info) Description 05/08/2024 2:00 PM EDT Office Visit [facility] [address] [place] [address] Handy Elias MD [address] [place] [address] 05/25/2024 3:00 PM EDT Telemedicine [facility] [address] [place] [address] Tessa Cox RN [address] [place] [address] documented as of this encounter Visit Diagnoses Not on filedocumented in this encounter Care Teams Occupational Health Nurse Relationship Specialty Start Date End Date Handy Elias MD [address] [place] [address] PCP - General Internal Medicine 11/17/12 documented as of this encounter
--- OUTSIDE RECORDS SUMMARY | 2024-04-22 14:20 | XMS_ITS | Encounter Summary ---
Author Organization [employer] [facility] Address [address] [place] [address] Care Team Providers Care Mail Room Clerk Name Role Phone Handy Elias MD Primary Care Provider [phone] Encounter Details Date Type Department Care Team (Late st Contact Info) Description 07/16/2022 Orders Only [facility] [address] [place] [address] Nataliia Santos LPN Social History Tobacco Use [...] [facility] [address] [place] [address] Handy Elias MD [address] [place] [address] 05/25/2024 3:00 PM EDT Telemedicine [facility] [address] [place] [address] Tessa Cox, MARITA [address] [place], [place] [phone] documented as of this encounter Visit Diagnoses Not on filedocumented in this encounter Care Teams Mail Room Clerk Relationship Specialty Start Date End Date Handy Elias MD [address] [place] [phone] PCP - General Internal Medicine 11/17/12 documented as of this encounter
--- OUTSIDE RECORDS SUMMARY | 2024-04-22 14:20 | XMS_ITS | Continuity of Care Document ---
Author Organization [place] - [facility], Allergy Address [address] [address] Assessment Encounter Date Assessment Date Assessment LastModified by Organization Details LastModified Time 04/15/2024 04/15/2024 Visit With: Cookie Blackwell Use of Antihistamine s: No If yes: Vial Test Change in medications: No If yes ? ? ? Increase in asthma symptoms If yes, inhaler use: Reaction to last injections: No If yes: ? ? ? Allergy Symptoms: Other: ? ? ? Missed: Dose Aware of Vial Test Notes:? ? ? Not available 04/15/2024 14:55:58 Plan of Treatment Reminders Order Date Submit Date Provider Last Modified By Organization Details Last Modified Time Details Appointments Allergy Shot 2024 01:45P M [facility] Not available Not available Not available Alka hed- Allergy f-up 6mon 2024 01:00P M ESSIE PLEITEZ PA-C Not available Not available Not available Lab None recorded . Referral None recorded . Procedures None recorded . Surgeries None recorded . Imaging None recorded . Medication Orders None recorded . Patient TargetsNo targets recorded. Patient InstructionsNo instructions recorded. Reason for Referral None Reported. Problems Name Problem SNOMED Code Status Onset Date Resolution Date Notes Provider Name and Address Organization Details Recorded Time Snoring [id number] Active 2016 Snoring; Note: Date Diagnosed: 08/23/2016 4:44 PM (R06.83) Not Available [facility] 4 02:47:57 Acute pharyngit is 578296059 Active 2013 Pharyngiti s, acute; CMS Risk: low risk CMS Treatment: new problem (to examiner): additional workup planned No te: Date Diagnosed: 12/16/2013 4:30 PM (462) Not Available [facility] 4 02:47:57 Hypertrop hy of tonsils 95414014 Active 2016 Hypertroph y of tonsils; Note: Date Diagnosed: 08/23/2016 4:50 PM (J35.1) Not Available [facility] 4 02:47:54 Acute sialoaden itis 800434927 Active 2021 Acute sialoadeni tis; Note: Date Diagnosed: 01/23/2022 3:21 PM (K11.21) Not Available [facility] 4 02:47:55 Abnormal auditory perceptio n 78594774 Active 2017 Other abnormal auditory perception s, bilateral; Note: Date Diagnosed: 09/02/2017 4:53 PM (H93.293) Not Available [facility] 4 02:47:53 Cough 60608035 Active 2016 Cough; Note: Date Diagnosed: 03/23/2016 4:25 PM (R05) Not Available [facility] 4 02:47:53 Acute sinusitis 42176816 Active 2016 Acute sinusitis, unspecifie d; Note: Date Diagnosed: 02/07/2017 3:59 PM (J01.90) Not Available [facility] 4 02:47:58 Sensorine ural hearing loss of bilateral ears 067850480 Active 2017 Sensorineu ral hearing loss, bilateral; Note: Date Diagnosed: 09/02/2017 5:33 PM (H90.3) Not Available [facility] 4 02:47:51 Posterior rhinorrhe a 54541094 Active 2016 Postnasal drip; Note: Date Diagnosed: 02/07/2017 3:59 PM (R09.82) Not Available [facility] 4 02:47:58 Simple obesity 358706910 Active 2016 Other obesity due to excess calories; Note: Date Diagnosed: 08/23/2016 4:44 PM (E66.09) Not Available [facility] 4 02:47:56 Nasal congestio n 08670360 Active 2016 Nasal congestion ; Note: Date Diagnosed: 03/23/2016 4:25 PM (R09.81) Not Available [facility] 02:47:57 Obstructi ve sleep apnea syndrome 35634114 Active 2016 Obstructiv e sleep apnea (adult) (pediatric ); Note: Date Diagnosed: 08/23/2016 4:44 PM (G47.33) Not Available [facility] 4 02:47:53 Allergic rhinitis caused by pollen 52812314 Active 2022 Allergic rhinitis due to pollen; Note: Date Diagnosed: 12/18/2022 3:52 PM (J30.1) Allergic rhinitis due to pollen; Note: Date Diagnosed: 04/19/2021 1:28 PM (J30.1) ; Start Date : 04/19/2021 Not Available [facility] 4 02:47:55 Allergic rhinitis 31845804 Active 2023 Allergic rhinitis: Due to other [...] Diagnosed: 12/08/2021 2:10 PM (477 Not Available [facility] 4 01:08:11 Perennial allergic rhinitis 888106597 Active 2023 YOANNA SAINZ 100 [facility],[place] [address], [place], [address] , [place] - [facility] 4 14:51:26 Chronic sinusitis 26329843 Active 2024 ESSIE PLEITEZ PA-C 100 [facility] [address], [facility] [place], [address] , [facility] - [facility] 16:05:25 Problem Notes None recorded. Procedures Surgical History Date Name Laterality Status Provider Name and Address Organization Details Recorded Time 04/22/19 25 Allergy Immunotherapy Injections completed YOANNA SAINZ 100 [facility],[address], [address], [facility] - [facility] 04/22/2024 13:45:00 04/15/19 25 Allergy Immunotherapy Injections completed YOANNA SAINZ 100 [facility],[place] [address], [place], [address], [facility] - [facility] [place] 04/15/2024 14:55:54 04/15/19 25 NasalEndoscopy_DP completed YUNIEL DONALD MD 100 [facility],[address], [address], [facility] - [facility] 04/15/2024 14:43:26 04/09/19 25 Allergy Immunotherapy Injections completed YOANNA ABEBE [address] [facility] [address],J[address] [facility], [place], [address], [facility] - [facility] 04/09/2024 15:24:18 04/03/19 25 Allergy Immunotherapy Injections completed YOANNA SAINZ [address], [place], [address], [place] [facility] [place] 04/03/2024 13:31:44 03/27/19 25 Allergy Immunotherapy Injections completed KAROLINE KELLY RN [address] [facility] [address],[place] [facility], [place], [address], [place] [facility] [place] 03/27/2024 13:20:20 03/13/19 25 Allergy Immunotherapy Injections completed GUY NUNN, RMA [address], [place], [address], [place] [facility] [place] 03/13/2024 14:51:01 02/26/19 25 Allergy Immunotherapy Injections completed GUY NUNN RMA [address] [facility] [address], [place], [address], [place] [facility] [place] 02/27/2024 16:07:25 02/26/19 25 JMSNasal/Sinus Endoscopy completed ESSIE PLEITEZ PA-C 100 [facility],[address] [place] [address], [address], [place] [facility] [place] 02/27/2024 16:37:51 02/17/20 24 Allergy Immunotherapy Injections completed KAROLINE KELLY RN [address] [facility] [address],[place] [address] [place] [address], [address], [place] [facility] [place] 02/17/2024 14:48:11 10/16/19 24 Allergy Immunotherapy Injections completed YOANNA SAINZ [address] [facility] [address],[place] [address] [place] [address], [address], [place] [facility] [place] 10/16/2023 16:51:03 09/25/19 24 Allergy Immunotherapy Injections completed KAROLINE KELLY RN [address] [facility] [address] [place] [address], [address], [place] [facility] [place] 09/25/2023 11:18:43 08/13/19 24 Allergy Immunotherapy Injections completed YOANNA SAINZ [address] [facility] [address] [place] [address], [address], [place] [facility] [place] 08/13/2023 15:02:29 07/18/19 24 Allergy Immunotherapy Injections completed COOKIE BLACKWELL, [facility] 100 [facility], [place], [address], [place] [facility] 07/18/2023 14:51:59 Imaging Results None recorded. Procedure Notes None recorded. Medical Equipment None Reported. Allergies No known drug allergies Medications Name Sig Start Date Stop Date Status Note LastModified by Organization Details LastModified Time cyclobenz aprine 10 mg tablet TAKE 1 TABLET BY MOUTH TWICE A DAY NEEDED FOR MUSCLE SPASM 02/26 completed Not Available Not Available Not Available clotrimaz ole 10 mg glen TAKE 1 GLEN 4 TIMES DAILY, DISSOLVE IN MOUTH 02/26 completed Not Available Not Available Not Available atorvasta tin 80 mg tablet 02/07 completed Medicati on ID: [id number] Dur ation Value: 30 Reason: () Brand Name: atorvast atin Sen d Method: E-Prescr ibed Sub s Allowed: subs OK Speci al Instruct ion: TAKE 1 TABLET BY MOUTH EVERY DAY Medi cationGe nericNam e: atorvast atin Not Available Not Available Not Available prednison e 10 mg tablet by mouth 02/26 completed Medicati on ID: [id number] D uration Value: 12 Brand Name: predniso [...] PLEASE SEE ATTACHED FOR DETAILED DIRECTIO NS 02/26 completed Not Available Not Available Not Available clindamyc in HCl 300 mg capsule 1 capsule by mouth 02/26 completed Medicati on ID: [id number] Dur ation Value: [...] FOR SHORTNES S OF BREATH OR WHEEZING 02/26 completed Not Available Not Available Not Available azithromy taz 250 mg tablet TAKE 1 TABLET BY MOUTH 3 TIMES A WEEK TAKE ON /02/26 completed Not Available Not Available Not Available tizanidin e 4 mg tablet 02/26 completed Medicati on ID: [id number] D uration Value: 30 Brand Name: tiaidennijames ne Send Method: E-Prescr ibed Sub s [...] Available prednison e 20 mg tablet TAKE 2 TABS DAILY X 5 DAYS, THEN 1 TABLET DAILY X 5 DAYS active Not Available Not Available No t Available alendrona te 70 mg tablet PLEASE SEE ATTACHED FOR DETAILED DIRECTIO NS active Not Available Not Available No t Available prednison e 5 mg tablet PLEASE SEE ATTACHED FOR DETAILED DIRECTIO NS 02/26 completed Not Available Not Available Not Available hydroxyzi ne pamoate 50 mg capsule TAKE 1 CAPSULE BY MOUTH EVERY 6 HOURS IF NEEDED FOR ITCHING active Not Available Not Available No t Available metronida zole 500 mg tablet TAKE 1 TABLET BY MOUTH 2 TIMES DAILY FOR 7 DAYS 02/26 completed Not Available Not Available Not Available amlodipin e 5 mg tablet TAKE 1 TABLET BY MOUTH EVERY DAY active Not Available Not Available No t Available ciproflox acin 500 mg tablet TAKE 1 TABLET (500 MG) BY MOUTH 2 TIMES DAILY FOR 10 DAYS. 02/26 completed Not Available Not Available Not Available sulfameth oxazole 800 mg-trimet hoprim 160 mg tablet TAKE 1 TABLET BY MOUTH EVERY 12 HOURS FOR 14 DAYS active Not Available Not Available No t Available omeprazol e 40 mg capsule,d elayed release TAKE 1 CAPSULE BY MOUTH ONCE A DAY TAKE ONE CAPSULE BY MOUTH ONCE A DAY BEFORE MEALS 02/26 completed Not Available Not Available Not Available aspirin 81 mg tablet,de layed release 03/16 completed Medicati on ID: [id number] Dur ation Value: 30 Reason: () Brand Name: aspirin Send Method: E-Prescr ibed Sub s Allowed: subs OK Medic ationGen ericName : aspirin Not Available Not Available Not Available doxycycli ne monohydra te 100 mg tablet TAKE 1 TABLET BY MOUTH TWICE A DAY X14 DAYS active Not Available Not Available No t Available tramadol 50 mg tablet TAKE 1 TABLET (50 MG TOTAL) BY MOUTH EVERY 6 HOURS NEEDED FOR PAIN 02/26 completed Not Available Not Available Not Available temazepam 7.5 mg capsule TAKE 1 CAPSULE (7.5 MG) BY MOUTH IF NEEDED AT BEDTIME FOR SLEEP. 02/26 completed Not Available Not Available Not Available acetamino phen ER 650 mg tablet,ex tended release TAKE 1 TABLET BY MOUTH EVERY 8 HOURS NEEDED 02/26 completed Not Available Not Available Not Available propranol ol 10 mg tablet TAKE 1 TABLET BY MOUTH EVERY DAY 02/26 completed Not Available Not Available Not Available citalopra m 20 mg tablet 03/16 completed Medicati on ID: [id number] D uration Value: 30 Reason: () Brand Name: citalopr am Send Method: E-Prescr ibed Sub s Allowed: subs OK Speci al Instruct ion: TAKE 1 TABLET BY MOUTH EVERY DAY Medi cationGe nericNam e: citalopr am Not Available Not Available Not Available Anafranil 50 mg capsule 02/26 completed Medicati on ID: [id number] B rand Name: Anafrani l Send Method: E-Prescr ibed Sub s Allowed: subs OK Medic ationGen ericName : Anafrani l Not Available Not Available Not Available fluvoxami ne 100 mg tablet TAKE 1 TABLET BY MOUTH TWICE A DAY 02/26 completed Not Available Not Available Not Available erythromy taz 5 mg/gram (0.5 %) eye ointment APPLY TWICE DAILY TO INCISION OF UPPER EYELID. 02/26 completed Not Available Not Available Not Available cyanocoba ramone (vit B-12) 1,000 mcg/mL injection solution INJECT 1 ML ONCE A MONTH DIRECTED active Not Available Not Available No t Available buspirone 10 mg tablet TAKE 1 TABLET BY MOUTH TWICE A DAY 02/26 completed Not Available Not Available Not Available Advair Diskus 250 mcg-50 mcg/dose powder for inhalatio n INHALE 1 PUFF EVERY 12 HOURS 02/26 completed Not Available Not Available Not Available Calcium-6 00 600 mg (as calcium carbonate 1,500 mg) tablet 2019 active Medicati on ID: [id number] B rand Name: Calcium 600 Send Method: E-Prescr ibed Sub s Allowed: subs OK Medic [facility] ericName : Calcium 600 Not Available Not Available Not Available fluoxetin e 10 mg capsule TAKE 1 CAPSULE BY MOUTH EVERY DAY 02/26 completed Not Available Not Available Not Available docusate sodium 100 mg capsule TAKE 1 CAPSULE BY MOUTH TWICE A DAY NEEDED CONSTIPA TION 02/26 completed Not Available Not Available Not Available sertralin e 25 mg tablet TAKE 25MG DAILY FOR 1 WEEK, THEN INCREASE TO 50MG DAILY FOR 1 WEEK, THEN INCREASE TO 100MG DAILY 02/26 completed Not Available Not Available Not Available omeprazol e 20 mg capsule,d elayed release TAKE 1 CAPSULE BY MOUTH EVERY DAY BEFORE A MEAL active Not Available Not Available No t Available budesonid e 0.5 mg/2 mL suspensio n for nebulizat ion INHALE 0.5 MG (2 ML) INHALED DAILY FOR 30 DAYS 02/26 completed Not Available Not Available Not Available monteluka st 10 mg tablet TAKE 1 TABLET BY MOUTH EVERY DAY 02/26 completed Not Available Not Available Not Available hydroxyzi ne HCl 25 mg tablet TAKE 1 TABLET (25 MG) BY MOUTH IF NEEDED IN THE MORNING, AT NOON, AND AT BEDTIME FOR ITCHING. 02/26 completed Not Available Not Available Not Available codeine 10 mg-guaife nesin 100 mg/5 mL oral liquid TAKE 10 ML ORALLY EVERY 6 HOURS NEEDED FOR COUGH FOR 10 DAYS 02/26 completed Not Available Not Available Not Available furosemid e 20 mg tablet 02/26 completed Not Available Not Available Not Available fluvoxami ne 50 mg tablet TAKE 1 TABLET BY MOUTH TWICE A DAY 02/26 completed Not Available Not Available Not Available lorazepam 1 mg tablet TAKE 1 TABLET BY MOUTH EVERY DAY NEEDED 02/26 completed Not Available Not Available Not Available azelastin e 137 mcg (0.1 %) nasal spray USE 2 SPRAYS NASALLY TWICE A DAY DIRECTED 02/26 completed Not Available Not Available Not Available Viagra 100 mg tablet TAKE 1 TABLET 1 HOUR BEFORE SEXUAL RELATION S ONCE DAILY NEEDED. 02/26 completed Not Available Not Available Not Available epinephri ne 0.3 mg/0.3 mL injection , auto-inje ctor 0.3 MG (0.3 ML) INTRAMUS CULARLY EVERY 10 MINUTES NEEDED FOR ANAPHYLA XIS FOR 30 DAYS FOR 2 DOSES active Not Available Not Available No t Available Nasonex 50 mcg/actua tion [place] 2 spray into both nostrils 02/26 completed Medicati on ID: [id number] D uration Value: 30 Prescri bed By Name: DAYANNA Liang nd Name: Nasonex Send Method: E-Prescr ibed Sub s Allowed: subs OK Medic ationGen ericName : Nasonex Not Available Not Available Not Available levofloxa taz 500 mg tablet TAKE 1 TABLET BY MOUTH EVERY DAY X14 DAYS 02/26 completed Not Available Not Available Not Available zolpidem 10 mg tablet TAKE 1 TABLET BY MOUTH EVERY DAY AT BEDTIME NEEDED FOR SLEEP active Not Available Not Available No t Available methylpre dnisolone 4 mg tablets in a dose pack TAKE 6 TABLETS ON DAY 1 DIRECTED ON PACKAGE AND DECREASE BY 1 TAB EACH DAY FOR A TOTAL OF 6 DAYS 02/26 completed Not Available Not Available Not Available labetalol 100 mg tablet 03/16 completed Medicati on ID: [id number] D uration Value: 30 Reason: () Brand Name: labetalo l Send Method: E-Prescr ibed Sub s Allowed: subs OK Speci al Instruct ion: TAKE 1 TABLET BY MOUTH TWICE A DAY Medi cationGe nericNam e: labetalo l Not Available Not Available Not Available propranol ol 20 mg tablet TAKE 1 TABLET BY MOUTH ONCE DAILY. active Not Available Not Available No t Available fluoxetin e 20 mg capsule TAKE 1 CAPSULE BY MOUTH EVERY DAY active Not Available Not Available No t Available fluticaso ne propionat e 50 mcg/actua tion nasal spray,marla pension 2 puff 2021 active Medicati on ID: [id number] D uration Value: 30 Prescri bed By Name: Kavon Phoenix MD Brand Name: fluticas one propiona te Send Method: E-Prescr ibed Sub s Allowed: subs OK Medic ationGen ericName : fluticas one propiona te Not Available Not Available Not Available dicyclomi ne 10 mg capsule TAKE 1 CAPSULE BY MOUTH 4 TIMES DAILY. active Not Available Not Available No t Available ipratropi um bromide 21 mcg (0.03 %) nasal spray [place] 2 spray into both nostrils three times a day 02/26 completed Medicati on ID: [id number] D uration Value: 30 Brand Name: ipratrop ium bromide Send Method: E-Prescr ibed Sub s Allowed: subs OK Speci al Instruct ion: 2 sprays in each nostril 1-3 times a day Medi cationGe nericNam e: ipratrop ium bromide Not Available Not Available Not Available finasteri de 5 mg tablet 03/16 completed Medicati on ID: [id number] D uration Value: 30 Reason: () Brand Name: finaster kristie Send Method: E-Prescr ibed Sub s Allowed: subs OK Speci al Instruct ion: TAKE 1 TABLET BY MOUTH Saturday Y AND SATURDAY M shavonne Renoic Name: finaster kristie Not Available Not Available Not Available loratadin e 10 mg tablet TAKE 1 TABLET BY MOUTH EVERY DAY 02/26 completed Not Available Not Available Not Available amoxicill in 875 mg-potass ium clavulana te 125 mg tablet TAKE 1 TABLET BY MOUTH TWICE A DAY FOR 14 DAYS 02/26 completed Not Available Not Available Not Available Ventolin HFA 90 mcg/actua tion aerosol inhaler INHALE 2 PUFFS EVERY 6 HOURS NEEDED FOR FOR WHEEZING FOR 30 DAYS active Not Available Not Available No t Available oxycodone 5 mg tablet TAKE 1 TABLET (5 MG) BY MOUTH EVERY 4 (FOUR) HOURS IF NEEDED FOR SEVERE PAIN FOR UP TO 28 DAYS. active Not Available Not Available No t Available Augmentin XR 1,000 mg-62.5 mg tablet,ex tended release 2 tablet by mouth 02/26 completed Medicati on ID: [id number] D uration Value: 7 Prescri bed By Name: DAYANNA Liang nd Name: Augmenti n XR Send Method: E-Prescr ibed Sub s Allowed: subs OK Medic ationGen ericName : Augmenti n XR Not Available Not Available Not Available ezetimibe 10 mg tablet TAKE 1 TABLET BY MOUTH EVERY DAY IN THE EVENING 02/26 completed Not Available Not Available Not Available Vitamin D3 25 mcg (1,000 unit) tablet 2013 active Medicati on ID: [id number] Dur ation Value: 30 Brand Name: Vitamin D3 Send Method: E-Prescr ibed Sub s Allowed: subs OK Speci al Instruct ion: TAKE 1 TABLET BY MOUTH EVERY DAY Medi cationGe nericNam e: Vitamin D3 Not Available Not Available Not Available guaifenes in 400 mg tablet 1 tablet by mouth 02/26 completed Medicati on ID: [id number] D uration Value: 10 Prescri bed By Name: DAYANNA Liang nd Name: guaifene sin Send Method: E-Prescr ibed Sub s Allowed: subs OK Medic ationGen ericName : guaifene sin Not Available Not Available Not Available oxymetazo line 0.05 % nasal spray 03/16 completed Medicati on ID: [id number] P rescribe d By Name: DAYANNA Liang nd Name: oxymetaz olken Se nd Method: E-Prescr ibed Sub s Allowed: subs OK Speci al Instruct ion: 2 sprays in each nostril once daily. Only use for 3 days. Me dication GenericN sherwin: oxymetaz oline Not Available Not Available Not Available rosuvasta tin 20 mg tablet TAKE 1 TABLET BY MOUTH EVERY DAY 02/26 completed Not Available Not Available Not Available bupropion HCl XL 150 mg 24 hr tablet, extended release 10/24 completed Medicati on ID: [id number] B rand Name: bupropio n HCl Send Method: E-Prescr ibed Sub s Allowed: subs OK Speci al Instruct ion: TAKE 1 TABLET BY MOUTH EVERY MORNING Medicati onGeneri cName: bupropio n HCl Not Available Not Available Not Available Fosamax Plus D 70 mg-2,800 unit tablet 02/26 completed Medicati on ID: [id number] B rand Name: Fosamax Plus D Send [...] A MONTH FOR VITMAIN B12 INJECTIO NS 02/26 completed Not Available Not Available Not Available CoQ-10 30 mg capsule 10/24 completed Medicati on ID: [id number] B rand Name: CoQ-10 S end Method: E-Prescr ibed Sub s Allowed: subs OK Medic ationGen ericName : CoQ-10 Not Available Not Available Not Available desvenlaf axine succinate ER 50 mg tablet,ex tended release 24 hr TAKE 1 TABLET BY MOUTH EVERY DAY 02/26 completed Not Available Not Available Not Available cholecalc iferol (vitamin D3) 50 mcg (2,000 unit) capsule TAKE 2 CAPSULES BY MOUTH EVERY DAY active Not Available Not Available No t Available Zyrtec 10 mg capsule 2013 active Medicati on ID: [id number] Bra nd Name: Zyrtec S end Method: E-Prescr ibed Sub s Allowed: subs OK Speci al Instruct ion: take 1 tablet by mouth everyday Medicat ionGener icName: Zyrtec Not Available Not Available Not Available B12 09/13 completed Medicati on ID: [id number] B rand Name: b12 Send Method: E-Prescr ibed Sub s Allowed: subs OK Medic ationGen ericName : b12 Not Available Not Available Not Available Dulera 200 mcg-5 mcg/actua tion HFA aerosol inhaler 2 puff 02/26 completed Medicati on ID: [id number] D uration Value: 90 Brand Name: Dulera S end Method: E-Prescr ibed Sub s Allowed: subs OK Medic ationGen ericName : Dulera Not Available Not Available Not Available roflumila st 500 mcg tablet TAKE 1 TABLET BY MOUTH EVERY DAY 02/26 completed Not Available Not Available Not Available Hyper-Wilfrido 3.5 % solution for nebulizat ion INHALE 4 ML 2 TIMES A DAY FOR SECRETIO NS FOR 30 DAYS active Not Available Not Available No t Available desvenlaf axine succinate ER 25 mg tablet,ex tended release 24 hr TAKE 1 TABLET BY MOUTH EVERY DAY active Not Available Not Available No t Available Bydureon BCise 2 mg/0.85 mL subcutane ous auto-inje ctor INJECT 1 PEN (2 MG) UNDER THE SKIN 1 (ONE) TIME PER WEEK. 02/26 completed Not Available Not Available Not Available Vitals Date Recorded Body height Body mass index (BMI) Body weight Provider Name and Address Organization Details Last Updated DateTime 04/15/2024 180.34 cm 37 kg/m2 955501.98 g Ector Pedraza [place] - [facility] 04/15/2024 14:10:22 Social History None recorded. Functional Status None recorded. Mental Status None recorded. Family History Nothing Reported. Medical History Condition Response High Cholesterol Y GERD/Reflux Y Hypertension Y Past Encounters Encounter ID Performer Location Encounter Start Date Encounter Closed Date Diagnosis/Indication Diagnosis SNOMED-CT Code Diagnosis ICD10 Code Diagnosis Note [id number] KAROLINE KELLY RN Allergy 100 [facility], [place] [address] [facility], [facility] [place] [address] 03/27/2024 13:00:24 03/27/2024 13:21:07 Perennial allergic rhinitis 304611263 J30.89 [id number] YOANNA SAINZ Allergy 100 [facility],[place] [address] [address] [place] [address] 04/03/2024 12:51:55 04/03/2024 13:32:07 Perennial allergic rhinitis [id number] J30.89 [id number] GUY DUARTE, RMA Allergy 100 [facility],[place] [address] [place] [address] 04/09/2024 14:46:04 04/09/2024 15:25:13 Perennial allergic rhinitis [id number] J30.89 [id number] YUNIEL DONALD MD [facility] [place] [address] [facility] [place] [address] 04/15/2024 13:59:30 04/15/2024 14:47:16 Allergic rhinitis 80082571 J30.9 [id number] COOKIE BLACKWELL, A Allergy 100 [facility],[place] [address] [place] [address] 04/15/2024 14:54:56 04/15/2024 14:56:12 Perennial allergic rhinitis 136470920 J30.89 Health Concerns Section Related Observation LastModified by Organization Detai ls LastModified Time None Recorded Concern Status LastModified by Organization Details LastModified Time None Recorded Payers Encounter Date Sequence Insurance Name Policy Number Policy Aranda Covered Member ID Aranda Member ID Guarantor Name 04/15/2024 2 [place] [id number] Henri Espino [id number] Henri Espino 04/15/2024 1 [place] N[place] GOVERNMENT [place] Henri Espino [id number] Henri Espino Notes Date Note Type Note Provider Name and Address Organization Details Recorded Time 04/15/2024 text/html PV 02/27/24 Essie - sinus, culture takenmixed martín, post treatment ct sinus requested culture + for Haemophilus parainfluenzae.05/16 augmentin 14d4/04/20 augmentin 14d6 cipro 10d10 augmentin 10d1/ levaquin 14d104/01/23 augmentin 14d104/01/23 doxy 14d1 bactrim 14d w prednisone 3d04/10/24 doxy 14d SCIT 09/2020 - presentweekly to catch up then to resume monthly 03/23/24 [facility], smal retention cyst right posterior ethmoid sinus describes sig PND volumePulm Dr [facility] at [place] YUNIEL DONALD MD [address] [place] [address], [place], [address], [place] [facility] 04/15/2024 14:45:10
--- OUTSIDE RECORDS SUMMARY | 2024-04-22 14:20 | XMS_ITS | Encounter Summary ---
Author Organization [employer] Address 75 [facility] 7 [place] [address] Care Team Providers Care Drill Setup Operator Name Role Phone Handy Elias MD Primary Care Provider [phone] Reason for Visit * Reason Onset Date Comments Med Refill 09/18/2023 Encounter Details Date Type Department Care Team (Late st Contact Info) Description 09/18/2023 Telephone [facility] MEDICINE [address] [place] [address] Handy Elias MD [address] [place], [place] [phone] Med Refill Social History Tobacco Use Types [...] refill : Zolpidem To be sent to: [facility]/pharmacy #[id number] - [place]ANKA LEWIS - [address] [place] [address] AT [address], [place] [address] documented in this encounter Plan of Treatment Upcoming Encounters Date Type Department Care Team (Late st Contact Info) Description 05/08/2024 2:00 PM EDT Office Visit [facility] MED & PEDS [address] [place] [address] Handy Elias MD [address] [place] [address] 05/25/2024 3:00 PM EDT Telemedicine [facility] MED & PEDS [address] [place] [address] Tessa Cox RN 505 [place] [address] documented as of this encounter Visit Diagnoses Not on filedocumented in this encounter Care Teams Drill Setup Operator Relationship Specialty Start Date End Date Handy Elias MD [address] [place] [address] PCP - General Internal Medicine 11/17/12 documented as of this encounter
--- OUTSIDE RECORDS SUMMARY | 2024-04-22 14:20 | XMS_ITS | Continuity of Care Document ---
Author Organization [place] - [facility], Allergy Address [address] [address] Assessment Encounter Date Assessment Date Assessment LastModified by Organization Details LastModified Time 03/27/2024 03/27/2024 Visit With: Cookie Meng Use of Antihistamine s: No If yes: Vial Test Change in medications: No If yes ? ? ? Increase in asthma symptoms No Asthma Hx If yes, inhaler use: Reaction to last injections: No If yes: ? ? ? Allergy Symptoms: Other: ? ? ? Missed: Dose Aware of Vial Test Notes:? ? ? hlorinser Not available 03/27/2024 13:20:30 Plan of Treatment Reminders Order Date Submit [...] and Address Organization Details Recorded Time Snoring [id number] Active 2016 Snoring; Note: Date Diagnosed: 08/23/2016 4:44 PM (R06.83) Not Available [facility] 4 02:47:57 Acute pharyngit is 987997535 Active 2013 Pharyngiti s, acute; CMS Risk: low risk CMS Treatment: new problem (to examiner): additional workup planned No te: Date Diagnosed: 12/16/2013 4:30 PM (462) Not Available [facility] 4 02:47:57 Hypertrop hy of tonsils 78953475 Active 2016 Hypertroph y of tonsils; Note: Date Diagnosed: 08/23/2016 4:50 PM (J35.1) Not Available [facility] 4 02:47:54 Acute sialoaden itis 544940828 Active 2021 Acute sialoadeni tis; Note: Date Diagnosed: 01/23/2022 3:21 PM (K11.21) Not Available [facility] 4 02:47:55 Abnormal auditory perceptio n 40189042 Active 2017 Other abnormal auditory perception s, bilateral; Note: Date Diagnosed: 09/02/2017 4:53 PM (H93.293) Not Available [facility] 4 02:47:53 Cough 02245299 Active 2016 Cough; Note: Date Diagnosed: 03/23/2016 4:25 PM (R05) Not Available [facility] 4 02:47:53 Acute sinusitis 31726955 Active 2016 Acute sinusitis, unspecifie d; Note: Date Diagnosed: 02/07/2017 3:59 PM (J01.90) Not Available [facility] 4 02:47:58 Sensorine ural hearing loss of bilateral ears 260313120 Active 2017 Sensorineu ral hearing loss, bilateral; Note: Date Diagnosed: 09/02/2017 5:33 PM (H90.3) Not Available [facility] 4 02:47:51 Posterior rhinorrhe a 44342965 Active 2016 Postnasal drip; Note: Date Diagnosed: 02/07/2017 3:59 PM (R09.82) Not Available [facility] 4 02:47:58 Simple obesity 385896385 Active 2016 Other obesity due to excess calories; Note: Date Diagnosed: 08/23/2016 4:44 PM (E66.09) Not Available [facility] 4 02:47:56 Nasal congestio n 02828091 Active 2016 Nasal congestion ; Note: Date Diagnosed: 03/23/2016 4:25 PM (R09.81) Not Available [facility] 02:47:57 Obstructi ve sleep apnea syndrome 52069724 Active 2016 Obstructiv e sleep apnea (adult) (pediatric ); Note: Date Diagnosed: 08/23/2016 4:44 PM (G47.33) Not Available [facility] 02:47:53 Allergic rhinitis caused by pollen 50650976 Active 2022 Allergic rhinitis due to pollen; Note: Date Diagnosed: 12/18/2022 3:52 PM (J30.1) Allergic rhinitis due to pollen; Note: Date Diagnosed: 04/19/2021 1:28 PM (J30.1) ; Start Date : 04/19/2021 Not Available [facility] 02:47:55 Allergic rhinitis 84935128 Active 2023 Allergic rhinitis: Due to other [...] Diagnosed: 12/08/2021 2:10 PM (477 Not Available [facility] 4 01:08:11 Perennial allergic rhinitis 919531855 Active 2023 YOANNA SAINZ 100 [facility] [place] [place] [address], [place], [address] , [place] - [facility] 4 14:51:26 Chronic sinusitis 84064700 Active 2024 ESSIE PLEITEZ PA-C 100 [facility] [place] [address], [facility] [place] [place], [address] , [place] - [facility] 16:05:25 Problem Notes None recorded. Procedures Surgical History Date Name Laterality Status Provider Name and Address Organization Details Recorded Time 04/22/19 25 Allergy Immunotherapy Injections completed YOANNA SAINZ 100 [facility] [place],[address], [address], [facility] - [facility] 04/22/2024 13:45:00 04/15/19 25 Allergy Immunotherapy Injections completed YOANNA SAINZ [address] [place], [place] [address] [place] [address], [place], [address], [facility] - [facility] 04/15/2024 14:55:54 04/15/19 25 NasalEndoscopy_DP completed YUNIEL DONALD MD 100 [facility] [place],[address], [address], [facility] - [facility] 04/15/2024 14:43:26 04/09/19 25 Allergy Immunotherapy Injections completed YOANNA ABEBE 100 [facility] [address],JAME [facility], [place], [address], [place] [facility] 04/09/2024 15:24:18 04/03/19 25 Allergy Immunotherapy Injections completed YOANNA SAINZ [address],[place]AME [facility], [place], [address], [place] [facility] 04/03/2024 13:31:44 03/27/19 25 Allergy Immunotherapy Injections completed KAROLINE KELLY RN 100 [facility] [address],[place] [facility], [place], [address], [place] [facility] 03/27/2024 13:20:20 03/13/19 25 Allergy Immunotherapy Injections completed GUY NUNN, RMA [address],JAME [address], [place], [address], [place] [facility] 03/13/2024 14:51:01 02/26/19 25 Allergy Immunotherapy Injections completed GUY NUNN RMA 100 [facility] [address], [place], [address], [place] [facility] 02/27/2024 16:07:25 02/26/19 25 JMSNasal/Sinus Endoscopy completed ESSIE PLEITEZ PA-C 100 [facility] [place] [address] [place] [address], [address], [place] - [facility] 02/27/2024 16:37:51 02/17/20 24 Allergy Immunotherapy Injections completed KAROLINE KELLY RN 100 [facility] [address],[place] [address] [place] [address], [address], [place] [facility] 02/17/2024 14:48:11 10/16/19 24 Allergy Immunotherapy Injections completed YOANNA SAINZ 100 [facility] [address],[place] [address] [place] [address], [address], [place] [facility] 10/16/2023 16:51:03 09/25/19 24 Allergy Immunotherapy Injections completed KAROLINE KELLY RN 100 [facility] [address],[place] [address] [place] [address], [address], [place] [facility] 09/25/2023 11:18:43 08/13/19 24 Allergy Immunotherapy Injections completed YOANNA SAINZ 100 [facility] [address],[place] [address] [place] [address], [address], [place] [facility] 08/13/2023 15:02:29 07/18/19 24 Allergy Immunotherapy Injections completed COOKIE MENG, [facility] 100 [facility],[place] [address], [place], [address], [place] [facility] 07/18/2023 14:51:59 Imaging Results None recorded. [...] by mouth 02/26 completed Medicati on ID: [id number] D uration Value: 12 Brand Name: predniso [...] mg tablet 02/26 completed Medicati on ID: [id number] D uration Value: 30 Brand Name: tizanidi [...] mg tablet 03/16 completed Medicati on ID: [id number] D uration Value: 30 Reason: () Brand Name: citalopr am Send Method: E-Prescr ibed Sub s Allowed: subs OK Speci al Instruct ion: TAKE 1 TABLET BY MOUTH EVERY DAY Medi cationGe nericNam e: citalopr am Not Available Not Available Not Available Anafranil 50 mg capsule 02/26 completed Medicati on ID: [id number] B rand Name: Anafrani l Send Method: [...] mg) tablet 2019 active Medicati on ID: [id number] B rand Name: Calcium 600 Send Method: E-Prescr ibed Sub s Allowed: subs OK [facility] 600 Not Available Not [...] No t Available Nasonex 50 mcg/actua tion [place] 2 spray into both nostrils 02/26 completed Medicati on ID: [id number] D uration Value: 30 Prescri bed By [...] mg tablet 03/16 completed Medicati on ID: [id number] D uration Value: 30 Reason: () Brand [...] 2 puff 2021 active Medicati on ID: [id number] D uration Value: 30 Prescri bed By [...] bromide 21 mcg (0.03 %) nasal spray [place] 2 spray into both nostrils three times a day 02/26 completed Medicati on ID: [id number] D uration Value: 30 Brand Name: ipratrop ium bromide Send Method: E-Prescr ibed Sub s Allowed: subs OK Speci al Instruct ion: 2 sprays in each nostril 1-3 times a day Medi cationGe nericNam e: ipratrop ium bromide Not Available Not Available Not Available finasteri de 5 mg tablet 03/16 completed Medicati on ID: [id number] D uration Value: 30 Reason: () Brand [...] by mouth 02/26 completed Medicati on ID: [id number] D uration Value: 7 Prescri bed By [...] by mouth 02/26 completed Medicati on ID: [id number] D uration Value: 10 Prescri bed By Name: DAYANNA Liang nd Name: guaifene sin Send Method: E-Prescr ibed Sub s Allowed: subs OK Medic ationGen ericName : guaifene sin Not Available Not Available Not Available oxymetazo line 0.05 % nasal spray 03/16 completed Medicati on ID: [id number] P rescribe d By Name: DAYANNA Liang [...] extended release 10/24 completed Medicati on ID: [id number] B rand Name: bupropio n HCl Send Method: E-Prescr ibed Sub s Allowed: subs OK Speci al Instruct ion: TAKE 1 TABLET BY MOUTH EVERY MORNING Medicati onGeneri cName: bupropio n HCl Not Available Not Available Not Available Fosamax Plus D 70 mg-2,800 unit tablet 02/26 completed Medicati on ID: 250276 B rand Name: Fosamax Plus D Send [...] mg capsule 10/24 completed Medicati on ID: [id number] B rand Name: CoQ-10 S end Method: [...] Available B12 09/13 completed Medicati on ID: [id number] B rand Name: b12 Send Method: E-Prescr ibed Sub s Allowed: subs OK Medic ationGen ericName : b12 Not Available Not Available Not Available Dulera 200 mcg-5 mcg/actua tion HFA aerosol inhaler 2 puff 02/26 completed Medicati on ID: [id number] D uration Value: 90 Brand Name: Dulera [...] Not Available Not Available Not Available Vitals None Recorded Social History None recorded. Functional Status None recorded. Mental Status None recorded. Family History Nothing Reported. Medical History Condition Response Hypertension Y GERD/Reflux Y High Cholesterol Y Past Encounters Encounter ID Performer Location Encounter Start Date Encounter Closed Date Diagnosis/Indication Diagnosis SNOMED-CT Code Diagnosis ICD10 Code Diagnosis Note [id number] YUNIEL DONALD MD [facility] - [facility] 100 [place] [address] 02/27/2024 15:21:49 02/27/2024 16:04:55 Chronic sinusitis 06179189 J32.9 Perennial allergic rhinitis 163854999 J30.89 [id number] [facility] K[facility], A Allergy 100 [facility] ite 100 [place] [address] 02/27/2024 16:06:49 02/27/2024 16:07:58 Perennial allergic rhinitis 308438612 J30.89 [id number] GUY NUNN, RMA Allergy 100 [facility],[place] it[address] 100 [place] [address] 03/13/2024 14:34:16 03/13/2024 14:51:30 Perennial allergic rhinitis 669177639 J30.89 [id number] KAROLINE KELLY RN Allergy 100 [facility] [address] [place] [address] 03/27/2024 13:00:24 03/27/2024 13:21:07 Perennial allergic rhinitis 451851026 J30.89 Health Concerns Section Related Observation LastModified by Organization Detai ls LastModified Time None Recorded Concern Status LastModified by Organization Details LastModified Time None Recorded Payers Encounter Date Sequence Insurance Name Policy Number Policy Aranda Covered Member ID Aranda Member ID Guarantor Name 03/27/2024 2 [place] [id number] Henri Espino [id number] Henri Espino 03/27/2024 1 [place] N[place] GOVERNMENT SERVICES Henri Espino [id number] Henri Espino
--- OUTSIDE RECORDS SUMMARY | 2024-04-22 14:20 | XMS_ITS | Encounter Summary ---
Author Organization [employer] Address 75 [facility] 7 [place] [address] Care Team Providers Care Computational Scientist Name Role Phone Handy Elias MD Primary Care Provider [phone] Reason for Visit * Reason Onset Date Comments Med Refill 06/12/2022 Encounter Details Date Type Department Care Team (Late st Contact Info) Description 06/12/2022 Telephone [facility] MEDICINE 230 [place] [address] Handy Elias MD 505 [place], [place] [phone] Med Refill Social History Tobacco Use Types [...] [facility] MED & PEDS 505 [facility] [place] [address] Handy Elias MD 505 [place] [address] 05/25/2024 3:00 PM EDT Telemedicine [facility] MED & PEDS 505 [place] [address] Tessa Cox RN 505 [place] [address] documented as of this encounter Visit Diagnoses Not on filedocumented in this encounter Care Teams Computational Scientist Relationship Specialty Start Date End Date Handy Elias MD 505 [place] [address] PCP - General Internal Medicine 11/17/12 documented as of this encounter
--- OUTSIDE RECORDS SUMMARY | 2024-04-22 14:20 | XMS_ITS | Clinical Summary ---
Author Organization [facility] Address 100 [address] [facility] 20 0 [place] [address] Phone Care Team Providers Care Fine Artist Name Role Phone Handy Elias MD Primary Care Provider [phone] Allergies Active Allergy Reactions Criticality Noted Date [...] 11/28/2019, 11/18/2017, Additional history exists [place] Care Teams Fine Artist Relationship Specialty Start Date End Date Handy Elias MD PCP - General Internal Medicine 10/19/20
--- OUTSIDE RECORDS SUMMARY | 2024-04-22 14:20 | XMS_ITS | Encounter Summary ---
Author Organization [employer] Address [address] [place] [address] 7 [place] [address] Care Team Providers Care Instant Potato Processing Supervisor Name Role Phone Handy Elias MD Primary Care Provider Encounter Details Date Type Department Care Team (Late Contact Info) Description 08/29/2022 Orders Only [facility] MED & PEDS 505 [place], [place] [phone] Handy Elias MD 505 [place] [address] Social History Tobacco Use Types Packs/Day Years [...] Description 05/08/2024 2:00 PM EDT Office Visit [facility] MED & PEDS 505 [place] [address] Handy Elias MD 505 [place], [place] [phone] 05/25/2024 3:00 PM EDT Telemedicine [facility] MED [facility] PEDS 505 [place] [address] Tessa Cox RN 505 [place] [address] documented as of this encounter Visit Diagnoses Not on filedocumented in this encounter Care Teams Instant Potato Processing Supervisor Relationship Specialty Start Date End Date Handy Elias MD [address] [place] [address] PCP - General Internal Medicine 11/17/12 documented as of this encounter
--- OUTSIDE RECORDS SUMMARY | 2024-04-22 14:20 | XMS_ITS | Encounter Summary ---
Author Organization [employer] Address [address] [place] [address] 7 [place] [address] Care Team Providers Care Film Or Tape Librarian Name Role Phone Handy Elias MD Primary Care Provider [phone] Encounter Details Date Type Department Care Team (Late Contact Info) Description 02/02/2022 Orders Only [facility] MEDICINE 230 [place], [place] [phone] Handy Elias MD 505 [place], [place] [phone] Cold intolerance of hand (Primary Dx); Primary [...] Description 05/08/2024 2:00 PM EDT Office Visit [facility] CHC MED & PEDS 505 [place], [place] [phone] Handy Elias MD 505 [place], [place] [phone] 05/25/2024 3:00 PM EDT Telemedicine [facility] MED & PEDS 505 [place] [address] Tessa Cox, MARITA 505 [place] [address] documented as of this encounter Procedures Procedure Name Priority Date/Time Associated Diagnosis Comments TSH W/REFLEX TO FT4 Routine 03/01/2022 1 1:16 AM EST Cold intolerance of hand documented in this encounter Results * TSH W/Reflex to FT4 (03/01/2022 11:16 AM EST) TSH w/Reflex to FT4 2.35 0.40 - 4.50 mIU/L [facility] [place] [facility] 03/01/2022 11:1 6 AM EST 03/01/2022 11:16 AM EST Handy Elias MD LAB BLOOD ORDERABLES Final Result [facility] [address] [facility], [facility], [place] [address] [employer] [place] [facility] [address] [facility], ([address]) [place] [address] documented in this encounter Visit Diagnoses Diagnosis Cold intolerance of hand- Primary 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
--- OUTSIDE RECORDS SUMMARY | 2024-04-22 14:20 | XMS_ITS | Encounter Summary ---
Author Organization [employer] Address 75 [facility] 7 [place] [address] Care Team Providers Care Bead Preparer Name Role Phone Handy Elias MD Primary Care Provider [phone] Reason for Visit * Reason Onset Date Comments Imaging 03/20/2024 Encounter Details Date Type Department Care Team ([facility] st Contact Info) Description 03/20/2024 Telephone [facility] CHC MED & PEDS 505 [place], [place] [phone] Handy Elias MD 505 [place], [place] [phone] Imaging Social History Tobacco Use Types Packs/Day [...] week and is planning on going to [facility] for XR.Informed I would send request to [...] Visit [facility] MED & PEDS 505 [place] [address] Handy Elias MD 505 [place] [address] 05/25/2024 3:00 PM EDT Telemedicine [facility] MED & PEDS 505 [place] [address] Tessa Cox, MARITA 505 [place] [address] documented as of this encounter Visit Diagnoses Not on filedocumented in this encounter Care Teams Bead Preparer Relationship Specialty Start Date End Date Handy Elias MD 505 [place] [address] PCP - General Internal Medicine 11/17/12 documented as of this encounter
--- OUTSIDE RECORDS SUMMARY | 2024-04-22 14:20 | XMS_ITS | Encounter Summary ---
Author Organization [employer] Address [address] [place] [address] 7 [place] [address] Care Team Providers Care Fleet Manager/Dispatch Name Role Phone Handy Elias MD Primary Care Provider [phone] Encounter Details Date Type Department Care Team (Late st Contact Info) Description 2022 Abstract [facility] MEDICINE 230 [place], [place] [phone] ProviderMelanie MD Social History Tobacco Use Types [...] Office Visit [facility] CHC MED & PEDS 505 [place], [place] [phone] Handy Elias MD 505 [place], [place] [phone] 05/25/2024 3:00 PM EDT Telemedicine [facility] MED & PEDS 505 [place] [address] Tessa Cox RN 505 [place] [address] documented as of this encounter Visit Diagnoses Not on filedocumented in this encounter Care Teams Fleet Manager/Dispatch Relationship Specialty Start Date End Date Handy Elias MD 505 [place] [address] PCP - General Internal Medicine 11/17/12 documented as of this encounter
--- OUTSIDE RECORDS SUMMARY | 2024-04-22 14:20 | XMS_ITS | Continuity of Care Document ---
Author Organization [place] - [facility], [facility] Address [address] [place] [address] Assessment Encounter Date Assessment Date Assessment LastModified by Organization Details LastModified Time 04/15/2024 04/15/[address] head showed minimal mucosal thickening left inferior maxillary sinus and a benign-appearing right posterior ethmoid mucosal retention cyst. I reviewed the images and report with patient. Nasal endoscopy was also performed and was found to be benign with no evidence of infection. Reassurance was given, conservative management with nasal irrigations. I suspect he has been somewhat overmedicated with antibiotics over the past year. His culture positive episodes were correctly treated with antibiotics but he continued to take them for multiple rounds thereafter. He will follow-up for allergy surveillance in approximately 6 months with Essie madera Not available 04/15/2024 14:44:55 Plan of Treatment Reminders Order Date Submit Date Provider Last Modified By Organization Details Last Modified Time Details Appointments Allergy Shot 2024 01:45P M [facility] Not available Not available Not available Al[place] [...] and Address Organization Details Recorded Time Snoring [id number] Active 2016 Snoring; Note: Date Diagnosed: 08/23/2016 4:44 PM (R06.83) Not Available [facility] 4 02:47:57 Acute pharyngit is 911409579 Active 2013 Pharyngiti s, acute; CMS Risk: low risk CMS Treatment: new problem (to examiner): additional workup planned No te: Date Diagnosed: 12/16/2013 4:30 PM (462) Not Available [facility] 4 02:47:57 Hypertrop hy of tonsils 75884083 Active 2016 Hypertroph y of tonsils; Note: Date Diagnosed: 08/23/2016 4:50 PM (J35.1) Not Available [facility] 4 02:47:54 Acute sialoaden itis 473361231 Active 2021 Acute sialoadeni tis; Note: Date Diagnosed: 01/23/2022 3:21 PM (K11.21) Not Available [facility] 4 02:47:55 Abnormal auditory perceptio n 67534803 Active 2017 Other abnormal auditory perception s, bilateral; Note: Date Diagnosed: 09/02/2017 4:53 PM (H93.293) Not Available [facility] 4 02:47:53 Cough 69463845 Active 2016 Cough; Note: Date Diagnosed: 03/23/2016 4:25 PM (R05) Not Available [facility] 4 02:47:53 Acute sinusitis 36486001 Active 2016 Acute sinusitis, unspecifie d; Note: Date Diagnosed: 02/07/2017 3:59 PM (J01.90) Not Available [facility] 4 02:47:58 Sensorine ural hearing loss of bilateral ears 942084955 Active 2017 Sensorineu ral hearing loss, bilateral; Note: Date Diagnosed: 09/02/2017 5:33 PM (H90.3) Not Available [facility] 4 02:47:51 Posterior rhinorrhe a 25623706 Active 2016 Postnasal drip; Note: Date Diagnosed: 02/07/2017 3:59 PM (R09.82) Not Available [facility] 4 02:47:58 Simple obesity 055748991 Active 2016 Other obesity due to excess calories; Note: Date Diagnosed: 08/23/2016 4:44 PM (E66.09) Not Available [facility] 4 02:47:56 Nasal congestio n 35197896 Active 2016 Nasal congestion ; Note: Date Diagnosed: 03/23/2016 4:25 PM (R09.81) Not Available [facility] 4 02:47:57 Obstructi ve sleep apnea syndrome 65771758 Active 2016 Obstructiv e sleep apnea (adult) (pediatric ); Note: Date Diagnosed: 08/23/2016 4:44 PM (G47.33) Not Available [facility] 4 02:47:53 Allergic rhinitis caused by pollen 60113157 Active 2022 Allergic rhinitis due to pollen; Note: Date Diagnosed: 12/18/2022 3:52 PM (J30.1) Allergic rhinitis due to pollen; Note: Date Diagnosed: 04/19/2021 1:28 PM (J30.1) ; Start Date : 04/19/2021 Not Available [facility] 4 02:47:55 Allergic rhinitis 81704862 Active 2023 Allergic rhinitis: Due to other [...] Diagnosed: 12/08/2021 2:10 PM (477 Not Available [facility] 4 01:08:11 Perennial allergic rhinitis 985213872 Active 2023 YOANNA SAINZ [address] [facility],[place] [address], [place], [address] , [place] - [facility] 4 14:51:26 Chronic sinusitis 99812259 Active 2024 ESSIE PLEITEZ PA-C [address] [facility],[place] [address], [place], [address] , [place] [facility] 16:05:25 Problem Notes None recorded. Procedures Surgical History Date Name Laterality Status Provider Name and Address Organization Details Recorded Time 04/22/19 25 Allergy Immunotherapy Injections completed YOANNA SAINZ [address] [facility] [facility], [place], [address], [facility] - [facility] 04/22/2024 13:45:00 04/15/19 25 Allergy Immunotherapy Injections completed YOANNA SAINZ [address] [facility], [place], [address], [facility] - [facility] 04/15/2024 14:55:54 04/15/19 25 NasalEndoscopy_DP completed YUNIEL DONALD MD [address],[place] [facility], [place], [address], [facility] - [facility] 04/15/2024 14:43:26 04/09/19 25 Allergy Immunotherapy Injections completed GUY NUNN, RMA [address], [place], [address], [place] - [facility] [place] 04/09/2024 15:24:18 04/03/19 25 Allergy Immunotherapy Injections completed YOANNA SAINZ [address], [place], [address], [place] [facility] [place] 04/03/2024 13:31:44 03/27/19 25 Allergy Immunotherapy Injections completed KAROLINE KELLY RN [address], [place], [address], [place] [facility] 03/27/2024 13:20:20 03/13/19 25 Allergy Immunotherapy Injections completed GUY NUNN, RMA [address], [place], [address], [place] [facility] [place] 03/13/2024 14:51:01 02/26/19 25 Allergy Immunotherapy Injections completed GUY NUNN, RMA [address],[place] [address] [place] [address], [address], [place] [facility] [place] 02/27/2024 16:07:25 02/26/19 25 JMSNasal/Sinus Endoscopy completed ESSIE PLEITEZ PA-C [address],[place] [address] [place] [address], [address], [place] - [facility] 02/27/2024 16:37:51 02/17/20 24 Allergy Immunotherapy Injections completed KAROLINE KELLY RN [address] [facility],[place] [address] [place] [address], [address], [facility] - [facility] [place] 02/17/2024 14:48:11 10/16/19 24 Allergy Immunotherapy Injections completed YOANNA SAINZ [address], [place], [address], [facility] - [facility] [place] 10/16/2023 16:51:03 09/25/19 24 Allergy Immunotherapy Injections completed KAROLINE KELLY RN [address], [place], [address], [place] [facility] [place] 09/25/2023 11:18:43 06/18/20 24 Allergy Immunotherapy Injections completed YOANNA SAINZ [address] [facility],[place] [address], [place], [address], [facility] 08/13/2023 15:02:29 07/18/19 24 Allergy Immunotherapy Injections completed YOANNA SAINZ [address] [facility] [address], [place], [address], [facility] 07/18/2023 14:51:59 Imaging Results None recorded. [...] by mouth 02/26 completed Medicati on ID: [id number] D uration Value: 12 Brand Name: predniso [...] ation Value: 10 Prescri bed By Name: Kimberle y Rutherfo rd, M.D. Bra nd Name: clindamy taz HCl Send Method: [...] MOUTH 3 TIMES A WEEK TAKE ON SATURDAY/ /02/26 completed Not Available Not Available Not Available tizanidin e 4 mg tablet 02/26 completed Medicati on ID: [id number] D uration Value: 30 Brand Name: tizanidi [...] mg tablet 03/16 completed Medicati on ID: [id number] D uration Value: 30 Reason: () Brand Name: citalopr am Send Method: E-Prescr ibed Sub s Allowed: subs OK Speci al Instruct ion: TAKE 1 TABLET BY MOUTH EVERY DAY Medi cationGe nericNam e: citalopr am Not Available Not Available Not Available Anafranil 50 mg capsule 02/26 completed Medicati on ID: [id number] B rand Name: Anafrani l Send Method: [...] mg) tablet 2019 active Medicati on ID: [id number] B rand Name: Calcium 600 Send Method: E-Prescr ibed Sub s Allowed: subs OK [facility] 600 Not Available [...] No t Available Nasonex 50 mcg/actua tion Salvo 2 spray into both nostrils 02/26 completed Medicati on ID: [id number] D uration Value: 30 Prescri bed By [...] mg tablet 03/16 completed Medicati on ID: [id number] D uration Value: 30 Reason: () Brand [...] 2 puff 2021 active Medicati on ID: [id number] D uration Value: 30 Prescri bed By [...] bromide 21 mcg (0.03 %) nasal spray Salvo 2 spray into both nostrils three times a day 02/26 completed Medicati on ID: [id number] D uration Value: 30 Brand Name: ipratrop ium bromide Send Method: E-Prescr ibed Sub s Allowed: subs OK Speci al Instruct ion: 2 sprays in each nostril 1-3 times a day Medi cationGe nericNam e: ipratrop ium bromide Not Available Not Available Not Available finasteri de 5 mg tablet 03/16 completed Medicati on ID: [id number] D uration Value: 30 Reason: () Brand Name: finaster kristie Send Method: E-Prescr ibed Sub s Allowed: subs OK Speci al Instruct ion: TAKE 1 TABLET BY MOUTH Saturday Y AND SATURDAY M shavonne Conrad Name: finaster kristie Not Available Not [...] by mouth 02/26 completed Medicati on ID: [id number] D uration Value: 7 Prescri bed By [...] by mouth 02/26 completed Medicati on ID: [id number] D uration Value: 10 Prescri bed By Name: DAYANNA Liang nd Name: guaifene sin Send Method: E-Prescr ibed Sub s Allowed: subs OK Medic ationGen ericName : guaifene sin Not Available Not Available Not Available oxymetazo line 0.05 % nasal spray 03/16 completed Medicati on ID: [id number] P rescribe d By Name: DAYANNA Liang [...] extended release 10/24 completed Medicati on ID: [id number] B rand Name: bupropio n HCl Send Method: E-Prescr ibed Sub s Allowed: subs OK Speci al Instruct ion: TAKE 1 TABLET BY MOUTH EVERY MORNING Medicati onGeneri cName: bupropio n HCl Not Available Not Available Not Available Fosamax Plus D 70 mg-2,800 unit tablet 02/26 completed Medicati on ID: [id number] B rand Name: Fosamax Plus D Send [...] mg capsule 10/24 completed Medicati on ID: [id number] B rand Name: CoQ-10 S end Method: [...] Medicati on ID: 8419 Bra nd Name: Zelroytec S end Method: E-Prescr ibed Sub s Allowed: subs OK Speci al Instruct ion: take 1 tablet by mouth everyday Medicat ionGener icName: Zyrtec Not Available Not Available Not Available B12 09/13 completed Medicati on ID: [id number] B rand Name: b12 Send Method: E-Prescr ibed Sub s Allowed: subs OK Medic ationGen ericName : b12 Not Available Not Available Not Available Dulera 200 mcg-5 mcg/actua tion HFA aerosol inhaler 2 puff 02/26 completed Medicati on ID: [id number] D uration Value: 90 Brand Name: Dulera [...] Updated DateTime 04/15/2024 180.34 cm 37 kg/m2 812451.98 g Ector Pedraza [place] - [facility] 04/15/2024 14:10:22 Social History None recorded. Functional Status None recorded. Mental Status None recorded. Family History Nothing Reported. Medical History Condition Response Hypertension Y GERD/Reflux Y High Cholesterol Y Past Encounters Encounter ID Performer Location Encounter Start Date Encounter Closed Date Diagnosis/Indication Diagnosis SNOMED-CT Code Diagnosis ICD10 Code Diagnosis Note [id number] KAROLINE KELLY RN Allergy [address] [facility],[place] [address] [facility] [place] [address] 03/27/2024 13:00:24 03/27/2024 13:21:07 Perennial allergic rhinitis 542367730 J30.89 [id number] ELYSSA BLACKWELL [facility] Allergy [address] [place] [address],[facility] [address] [place] [address] 04/03/2024 12:51:55 04/03/2024 13:32:07 Perennial allergic rhinitis 262301586 J30.89 [id number] GUY DUARTE, A Allergy [address] [place] [address],[facility] [address] [place] [address] 04/09/2024 14:46:04 04/09/2024 15:25:13 Perennial allergic rhinitis 232572041 J30.89 [id number] YUNIEL DONALD MD [facility] [address] [place] [address] 04/15/2024 13:59:30 04/15/2024 14:47:16 Allergic rhinitis 29522565 J30.9 [id number] ELYSSA BLACKWELL [facility] Allergy [address] [place] [address],[facility] [address] [place] [address] 04/15/2024 14:54:56 04/15/2024 14:56:12 Perennial allergic rhinitis 063620694 J30.89 Health Concerns Section Related Observation LastModified by Organization Detai ls LastModified Time None Recorded Concern Status LastModified by Organization Details LastModified Time None Recorded Payers Encounter Date Sequence Insurance Name Policy Number Policy Aranda Covered Member ID Aranda Member ID Guarantor Name 04/15/2024 2 [place] [id number] Henri Espino [id number] Henri Espino 04/15/2024 1 [place] [employer] [employer] Henri Espino [id number] Henri Espino Notes Date Note Type Note Provider Name and Address Organization Details Recorded Time 04/15/2024 text/html PV 02/27/24 Essie - sinus, culture takenmixed martín, post treatment ct sinus requested culture + for Haemophilus parainfluenzae.05/16 augmentin 14d4 augmentin 14d08/20/23 cipro 10d1 augmentin 10d103/09/23 levaquin 14d104/01/23 augmentin 14d104/01/23 doxy 1403/10/24 bactrim 14d w prednisone 3d04/10/24 doxy 14d SCIT 09/2020 - presentweekly to catch up then to resume monthly 03/23/24 [facility], smal retention cyst right posterior ethmoid sinus describes sig PND [facility]Pulm [facility] [place] YUNIEL DONALD MD [address] [place] [address],[place] [address], [place], [address], [place] - [facility] 04/15/2024 14:45:10
--- OUTSIDE RECORDS SUMMARY | 2024-04-22 14:21 | XMS_ITS | Encounter Summary ---
Author Organization [employer] Address [address] [facility] 7 [place] [address] Care Team Providers Care Transplant Case Manager Name Role Phone Handy Elias MD Primary Care Provider [phone] Reason for Visit * Reason Onset Date Comments Med Refill 04/08/2024 Encounter Details Date Type Department Care Team (Late st Contact Info) Description 04/08/2024 Refill [facility] [address] [place] [address] Handy Elias MD [address] [place], [place] [phone] Chronic pain syndrome Social History Tobacco Use [...] tablet To be sent to: [facility]/pharmacy #[id number] - [place] - [address] [facility] [address], [place] [address] documented in this encounter Plan of Treatment Upcoming Encounters Date Type Department Care Team (Late st Contact Info) Description 05/08/2024 2:00 PM EDT Office Visit [facility] [address] [place] [address] Handy Elias MD [address] [place] [address] 05/25/2024 3:00 PM EDT Telemedicine [facility] [address] [place] [address] Tessa Cox, MARITA [address] [place] [address] documented as of this encounter Visit Diagnoses Diagnosis Chronic pain syndrome documented in this encounter Care Teams Transplant Case Manager Relationship Specialty Start Date End Date Handy Elias MD [address] [place] [address] PCP - General Internal Medicine 11/17/12 documented as of this encounter
--- OUTSIDE RECORDS SUMMARY | 2024-04-22 14:21 | XMS_ITS | Encounter Summary ---
Author Organization [employer] Address [address] [place] [address] 7 [place] [address] Care Team Providers Care Internal Auditor Name Role Phone Handy Elias MD Primary Care Provider [phone] Encounter Details Date Type Department Care Team (Late st Contact Info) Description 05/14/2023 Orders Only [facility] [address] [place] [address] Handy Elias MD [address] [place] [address] Mood disorder (CMS/HCC) (Primary Dx) Social History [...] [facility] [address] [place] [address] Handy Elias MD [address] [place] [address] 05/25/2024 3:00 PM EDT Telemedicine [facility] [address] [place] [address] Tessa Cox RN [address] [place] [address] documented as of this encounter Visit Diagnoses Diagnosis Mood disorder (CMS/HCC)- Primary Unspecified episodic mood disorder documented in this encounter Care Teams Internal Auditor Relationship Specialty Start Date End Date Handy Elias MD [address] [place] [address] PCP - General Internal Medicine 11/17/12 documented as of this encounter
--- OUTSIDE RECORDS SUMMARY | 2024-04-22 14:21 | XMS_ITS | Continuity of Care Document ---
Author Organization [place] - [facility], Allergy Address [address] [address] Assessment Encounter Date Assessment Date Assessment LastModified by Organization Details LastModified Time 04/22/2024 04/22/2024 Visit With: Cookie Meng Use of Antihistamine s: No If yes: Vial Test Change in medications: No If yes ? ? ? Increase in asthma symptoms If yes, inhaler use: Reaction to last injections: No If yes: ? ? ? Allergy Symptoms: Other: ? ? ? Missed: Dose Aware of Vial Test Yes Notes:? ? ?aware he is back to being monthly [id number] Not available 04/22/2024 13:45:24 Plan of Treatment Reminders Order Date Submit [...] and Address Organization Details Recorded Time Snoring [id number] Active 2016 Snoring; Note: Date Diagnosed: 08/23/2016 4:44 PM (R06.83) Not Available [facility] 4 02:47:57 Acute pharyngit is 701672057 Active 2013 Pharyngiti s, acute; CMS Risk: low risk CMS Treatment: new problem (to examiner): additional workup planned No te: Date Diagnosed: 12/16/2013 4:30 PM (462) Not Available [facility] 4 02:47:57 Hypertrop hy of tonsils 24496897 Active 2016 Hypertroph y of tonsils; Note: Date Diagnosed: 08/23/2016 4:50 PM (J35.1) Not Available [facility] 4 02:47:54 Acute sialoaden itis 947253249 Active 2021 Acute sialoadeni tis; Note: Date Diagnosed: 01/23/2022 3:21 PM (K11.21) Not Available [facility] 4 02:47:55 Abnormal auditory perceptio n 37844912 Active 2017 Other abnormal auditory perception s, bilateral; Note: Date Diagnosed: 09/02/2017 4:53 PM (H93.293) Not Available [facility] 4 02:47:53 Cough 26234492 Active 2016 Cough; Note: Date Diagnosed: 03/23/2016 4:25 PM (R05) Not Available [facility] 4 02:47:53 Acute sinusitis 04174796 Active 2016 Acute sinusitis, unspecifie d; Note: Date Diagnosed: 02/07/2017 3:59 PM (J01.90) Not Available [facility] 4 02:47:58 Sensorine ural hearing loss of bilateral ears 899759101 Active 2017 Sensorineu ral hearing loss, bilateral; Note: Date Diagnosed: 09/02/2017 5:33 PM (H90.3) Not Available [facility] 4 02:47:51 Posterior rhinorrhe a 74983613 Active 2016 Postnasal drip; Note: Date Diagnosed: 02/07/2017 3:59 PM (R09.82) Not Available [facility] 4 02:47:58 Simple obesity 477035244 Active 2016 Other obesity due to excess calories; Note: Date Diagnosed: 08/23/2016 4:44 PM (E66.09) Not Available [facility] 4 02:47:56 Nasal congestio n 94156789 Active 2016 Nasal congestion ; Note: Date Diagnosed: 03/23/2016 4:25 PM (R09.81) Not Available [facility] 4 02:47:57 Obstructi ve sleep apnea syndrome 60405498 Active 2016 Obstructiv e sleep apnea (adult) (pediatric ); Note: Date Diagnosed: 08/23/2016 4:44 PM (G47.33) Not Available [facility] 4 02:47:53 Allergic rhinitis caused by pollen 17714788 Active 2022 Allergic rhinitis due to pollen; Note: Date Diagnosed: 12/18/2022 3:52 PM (J30.1) Allergic rhinitis due to pollen; Note: Date Diagnosed: 04/19/2021 1:28 PM (J30.1) ; Start Date : 04/19/2021 Not Available [facility] 4 02:47:55 Allergic rhinitis 87504836 Active 2023 Allergic rhinitis: Due to other [...] 12/08/2021 2:10 PM (477 Not Available [facility] 4 01:08:11 Perennial allergic rhinitis 992922987 Active [address]Z [address] [place] [address],[place] [address], [facility] [place], [address] , [facility] - [facility] 4 14:51:26 Chronic sinusitis 14024547 Active 2024 ESSIE PLEITEZ PA-C [address] [place] [address],[place] [address], [place], [address] , [facility] - [facility] 5 16:05:25 Problem Notes None recorded. Procedures Surgical History Date Name Laterality Status Provider Name and Address Organization Details Recorded Time 04/22/19 25 Allergy Immunotherapy Injections completed YOANNA SAINZ [address] [place] [address],[address], [address], [facility] - [facility] 04/22/2024 13:45:00 04/15/19 25 Allergy Immunotherapy Injections completed YOANNA SAINZ [address] [place] [address],[address], [address], [facility] - [facility] 04/15/2024 14:55:54 04/15/19 25 NasalEndoscopy_DP completed YUNIEL DONALD MD [address] [place] [address],[address], [address], [facility] - [facility] 04/15/2024 14:43:26 04/09/19 25 Allergy Immunotherapy Injections completed KAT ABEBE [address] [facility],[address], [address], [facility] - [facility] 04/09/2024 15:24:18 04/03/19 25 Allergy Immunotherapy Injections completed YOANNA SAINZ [address], [place], [address], [place] - [facility] 04/03/2024 13:31:44 03/27/19 25 Allergy Immunotherapy Injections completed KAROLINE KELLY RN [address], [place], [address], [place] [facility] 03/27/2024 13:20:20 03/13/19 25 Allergy Immunotherapy Injections completed GUY NUNN, RMA [address], [place], [address], [place] [facility] 03/13/2024 14:51:01 02/26/19 25 Allergy Immunotherapy Injections completed GUY NUNN RMA [address], [place], [address], [place] [facility] 02/27/2024 16:07:25 02/26/19 25 JMSNasal/Sinus Endoscopy completed ESSIE PLEITEZ PA-C [address] [facility] [place], [place], [address], [place] - [facility] 02/27/2024 16:37:51 02/17/20 24 Allergy Immunotherapy Injections completed KAROLINE KELLY RN [address] [place] [address], [address], [place] [facility] 02/17/2024 14:48:11 10/16/19 24 Allergy Immunotherapy Injections completed YOANNA SAINZ [address], [place], [address], [place] [facility] 10/16/2023 16:51:03 09/25/19 24 Allergy Immunotherapy Injections completed KAROLINE KELLY RN [address] [place] [address], [address], [place] [facility] 09/25/2023 11:18:43 08/13/19 24 Allergy Immunotherapy Injections completed YOANNA SAINZ [address], [address], [place] [facility] 08/13/2023 15:02:29 07/18/19 24 Allergy Immunotherapy Injections completed COOKIE MENG, [facility] [address] [facility],[place] [address], [place], [address], [place] [facility] 07/18/2023 14:51:59 Imaging Results None recorded. [...] by mouth 02/26 completed Medicati on ID: [id number] D uration Value: 12 Brand Name: predniso [...] mg tablet 02/26 completed Medicati on ID: [id number] D uration Value: 30 Brand Name: tizanidi [...] mg tablet 03/16 completed Medicati on ID: [id number] D uration Value: 30 Reason: () Bran d Name: citalopr am Send Method: E-Prescr ibed Sub s Allowed: subs OK Speci al Instruct ion: TAKE 1 TABLET BY MOUTH EVERY DAY Medi cationGe nericNam e: citalopr am Not Available Not Available Not Available Anafranil 50 mg capsule 02/26 completed Medicati on ID: [id number] B rand Name: Anafrani l Send Method: [...] mg) tablet 2019 active Medicati on ID: [id number] B rand Name: Calcium 600 Send Method: E-Prescr ibed Sub s Allowed: subs OK Medic [facility] ericName : Calcium 600 Not Available Not [...] No t Available Nasonex 50 mcg/actua tion Leon 2 spray into both nostrils 02/26 completed Medicati on ID: [id number] D uration Value: 30 Prescri bed By [...] mg tablet 03/16 completed Medicati on ID: [id number] D uration Value: 30 Reason: () Brand [...] 2 puff 2021 active Medicati on ID: [id number] D uration Value: 30 Prescri bed By [...] bromide 21 mcg (0.03 %) nasal spray Leon 2 spray into both nostrils three times a day 02/26 completed Medicati on ID: [id number] D uration Value: 30 Brand Name: ipratrop ium bromide Send Method: E-Prescr ibed Sub s Allowed: subs OK Speci al Instruct ion: 2 sprays in each nostril 1-3 times a day Medi cationGe nericNam e: ipratrop ium bromide Not Available Not Available Not Available finasteri de 5 mg tablet 03/16 completed Medicati on ID: [id number] D uration Value: 30 Reason: () Brand [...] by mouth 02/26 completed Medicati on ID: [id number] D uration Value: 7 Prescri bed By [...] by mouth 02/26 completed Medicati on ID: [id number] D uration Value: 10 Prescri bed By Name: DAYANNA Liang nd Name: guaifene sin Send Method: E-Prescr ibed Sub s Allowed: subs OK Medic ationGen ericName : guaifene sin Not Available Not Available Not Available oxymetazo line 0.05 % nasal spray 03/16 completed Medicati on ID: [id number] P rescribe d By Name: DAYANNA Liang [...] extended release 10/24 completed Medicati on ID: [id number] B rand Name: bupropio n HCl Send Method: E-Prescr ibed Sub s Allowed: subs OK Speci al Instruct ion: TAKE 1 TABLET BY MOUTH EVERY MORNING Medicati onGeneri cName: bupropio n HCl Not Available Not Available Not Available Fosamax Plus D 70 mg-2,800 unit tablet 02/26 completed Medicati on ID: 102339 B rand Name: Fosamax Plus D Send [...] mg capsule 10/24 completed Medicati on ID: [id number] B rand Name: CoQ-10 S end Method: [...] Available B12 09/13 completed Medicati on ID: [id number] B rand Name: b12 Send Method: E-Prescr ibed Sub s Allowed: subs OK Medic ationGen ericName : b12 Not Available Not Available Not Available Dulera 200 mcg-5 mcg/actua tion HFA aerosol inhaler 2 puff 02/26 completed Medicati on ID: [id number] D uration Value: 90 Brand Name: Dulera [...] Reported. Medical History Condition Response Hypertension Y High Cholesterol Y GERD/Reflux Y Past Encounters Encounter ID Performer Location Encounter Start Date Encounter Closed Date Diagnosis/Indication Diagnosis SNOMED-CT Code Diagnosis ICD10 Code Diagnosis Note [id number] KAROLINE KELLY RN Allergy [address] [facility], [place] [address] [place] [address] 03/27/2024 13:00:24 03/27/2024 13:21:07 Perennial allergic rhinitis [id number] J30.89 [id number] YOANNA SAINZ Allergy [address] [facility],[place] [address] [place] [address] 04/03/2024 12:51:55 04/03/2024 13:32:07 Perennial allergic rhinitis 102748359 J30.89 [id number] KAT ABEBEA Allergy [address] [facility],[place] [address] [place] [address] 04/09/2024 14:46:04 04/09/2024 15:25:13 Perennial allergic rhinitis 318158179 J30.89 [id number] YUNIEL DONALD MD [facility] - [place] [address] [place] [address] 04/15/2024 13:59:30 04/15/2024 14:47:16 Allergic rhinitis 86423794 J30.9 [id number] COOKIE MENG [facility] Allergy [address] [facility],[place] 100 [place] [address] 04/15/2024 14:54:56 04/15/2024 14:56:12 Perennial allergic rhinitis [id number] J30.89 [id number] COOKIE MENG [facility] Allergy [address] [facility],[place] [address] [place] [address] 04/22/2024 13:22:05 04/22/2024 13:44:15 Perennial allergic rhinitis 325743157 J30.89 Health Concerns Section Related Observation LastModified by Organization Detai ls LastModified Time None Recorded Concern Status LastModified by Organization Details LastModified Time None Recorded Payers Encounter Date Sequence Insurance Name Policy Number Policy Aranda Covered Member ID Aranda Member ID Guarantor Name 04/22/2024 2 [place] [id number] Henri Espino [id number] Henri Espino 04/22/2024 1 MEDICARE B-[place]: [facility] [employer] Henri Espino [id number] Henri Espino
--- OUTSIDE RECORDS SUMMARY | 2024-04-22 14:21 | XMS_ITS | Encounter Summary ---
Author Organization [employer] Address [address] [place] [address] Care Team Providers Care Security Clerk Name Role Phone Handy Elias MD Primary Care Provider [phone]- [phone] Reason for Visit * Reason Onset Date Comments Call Back Request 05/14/2023 Encounter Details Date Type Department Care Team (Late st Contact Info) Description 05/14/2023 Telephone [facility] MEDICINE [address] [place] [address] Handy Elias MD [address] [place], [place] [phone] Call Back Request Social History Tobacco Use [...] [facility] [address] [place] [address] Handy Elias MD [address] [place] [address] 05/25/2024 3:00 PM EDT Telemedicine [facility] MED & PEDS [address] [place] [address] Tessa Cox RN 505 [place] [address] documented as of this encounter Visit Diagnoses Not on filedocumented in this encounter Care Teams Security Clerk Relationship Specialty Start Date End Date Handy Elias MD [address] [place] [address] PCP - General Internal Medicine 11/17/12 documented as of this encounter
--- OUTSIDE RECORDS SUMMARY | 2024-04-22 14:21 | XMS_ITS | Encounter Summary ---
Author Organization [employer] Address [address] [place] [address] Care Team Providers Care Drum Puller Name Role Phone Handy Elias MD Primary Care Provider [phone]- [phone] Reason for Visit * Reason Onset Date Comments Call Back Request 06/19/2023 Encounter Details Date Type Department Care Team (Late st Contact Info) Description 06/19/2023 Telephone [facility] MEDICINE [address] [place] [address] Handy Elias MD 505 [place] [address] Call Back Request Social History Tobacco Use [...] Description 05/08/2024 2:00 PM EDT Office Visit [facility] MED & PEDS [address] [place] [address] Handy Elias MD 505 [place] [address] 05/25/2024 3:00 PM EDT Telemedicine [facility] MED & PEDS [address] [place] [address] Tessa Cox RN 505 [place] [address] documented as of this encounter Visit Diagnoses Not on filedocumented in this encounter Care Teams Drum Puller Relationship Specialty Start Date End Date Handy Elias MD 505 [place] [address] PCP - General Internal Medicine 11/17/12 documented as of this encounter
--- OUTSIDE RECORDS SUMMARY | 2024-04-22 14:21 | XMS_ITS | Encounter Summary ---
Author Organization [employer] Address 75 [facility] 7 [place] [address] Care Team Providers Care Vault Installer Name Role Phone Handy Elias MD Primary Care Provider [phone] Reason for Visit * Reason Onset Date Comments Med Refill 11/15/2023 Encounter Details Date Type Department Care Team (Late st Contact Info) Description 11/15/2023 Telephone [facility] MEDICINE [address] [place] [address] Handy Elias MD [address] [place], [place] [phone] Med Refill Social History Tobacco Use Types [...] 10 MG tablet To be sent to: [facility]/pharmacy #[id number] - [place], [place] - [address] [facility] [address], [place] [address] documented in this encounter Plan of Treatment Upcoming Encounters Date Type Department Care Team (Late st Contact Info) Description 05/08/2024 2:00 PM EDT Office Visit [facility] MED & PEDS [address] [place] [address] Handy Elias MD 505 [place] [address] 05/25/2024 3:00 PM EDT Telemedicine [facility] MED & PEDS [address] [place] [address] Tessa Cox RN 505 [place] [address] documented as of this encounter Visit Diagnoses Not on filedocumented in this encounter Care Teams Vault Installer Relationship Specialty Start Date End Date Handy Elias MD 505 [place] [address] PCP - General Internal Medicine 11/17/12 documented as of this encounter
--- OUTSIDE RECORDS SUMMARY | 2024-04-22 14:21 | XMS_ITS | Encounter Summary ---
Author Organization [employer] Address 75 [facility] 7 [place] [address] Care Team Providers Care Classroom Assistant Name Role Phone Handy Elias MD Primary Care Provider [phone] Reason for Visit * Reason Onset Date Comments call back requested 10/18/2023 Encounter Details Date Type Department Care Team ([facility] st Contact Info) Description 10/18/2023 Telephone [facility] MEDICINE [address] [place] [address] Handy Elias MD [address] [place], [place] [phone] call back requested Social History Tobacco Use [...] spouse states just missed a call from [employer] nurse Tessa . documented in this encounter Plan of Treatment Upcoming Encounters Date Type Department Care Team (Late st Contact Info) Description 05/08/2024 2:00 PM EDT Office Visit [facility] MED & PEDS [address] [place] [address] Handy Elias MD [address] [place] [address] 05/25/2024 3:00 PM EDT Telemedicine [facility] MED & PEDS [address] [place] [address] Tessa Cox RN 505 [place] [address] documented as of this encounter Visit Diagnoses Not on filedocumented in this encounter Care Teams Classroom Assistant Relationship Specialty Start Date End Date Handy Elias MD [address] [place] [address] PCP - General Internal Medicine 11/17/12 documented as of this encounter
--- OUTSIDE RECORDS SUMMARY | 2024-04-22 14:21 | XMS_ITS | Encounter Summary ---
Author Organization [employer] Address [address] [facility] 7 [place] [address] Care Team Providers Care Professional Poker Player Name Role Phone Handy Elias MD Primary Care Provider [phone] Encounter Details Date Type Department Care Team (Late st Contact Info) Description 11/15/2023 Orders Only [facility] MED & PEDS [address] [place], [place] [phone] Handy Elias MD [address] [place], [place] [phone] Social History Tobacco Use Types Packs/Day Years [...] 05/08/2024 2:00 PM EDT Office Visit [facility] MED & PEDS [address] [place] [address] Handy Elias MD 505 [place] [address] 05/25/2024 3:00 PM EDT Telemedicine [facility] MED & PEDS [address] [place] [address] Tessa Cox, MARITA 505 [place] [address] documented as of this encounter Visit Diagnoses Not on filedocumented in this encounter Care Teams Professional Poker Player Relationship Specialty Start Date End Date Handy Elias MD 505 [place] [address] PCP - General Internal Medicine 11/17/12 documented as of this encounter
--- OUTSIDE RECORDS SUMMARY | 2024-04-22 14:21 | XMS_ITS | Encounter Summary ---
Author Organization [employer] Address [address] [place] [address] Care Team Providers Care Dramatic Arts Historian Name Role Phone Handy Elias MD Primary Care Provider [phone]- [phone] Reason for Visit * Reason Onset Date Comments Reschedule 04/01/2023 Encounter Details Date Type Department Care Team (Late st Contact Info) Description 04/01/2023 Telephone [facility] MEDICINE [address] [place] [address] Handy Elias MD 505 [place] [address] Reschedule Social History Tobacco Use Types Packs/Day [...] Phillip from [employer] requesting r/s 04/04/2023 appt, telegraphic typewriter operator attempted to schedule no availability. documented in this encounter Plan of Treatment Upcoming Encounters Date Type Department Care Team (Late st Contact Info) Description 05/08/2024 2:00 PM EDT Office Visit [facility] MED & PEDS [address] [place] [address] Handy Elias MD [address] [place] [address] 05/25/2024 3:00 PM EDT Telemedicine [facility] MED & PEDS [address] [place] [address] Tessa Cox RN 505 [place] [address] documented as of this encounter Visit Diagnoses Not on filedocumented in this encounter Care Teams Dramatic Arts Historian Relationship Specialty Start Date End Date Handy Elias MD [address] [place] [address] PCP - General Internal Medicine 11/17/12 documented as of this encounter
--- OUTSIDE RECORDS SUMMARY | 2024-04-22 14:21 | XMS_ITS | Encounter Summary ---
Author Organization [employer] Address [address] [place] [address] [place] [address] Care Team Providers Care X Ray Nurse Name Role Phone Handy Elias MD Primary Care Provider [phone]- [phone] Reason for Visit * Reason Onset Date Comments Med Refill 02/13/2023 Encounter Details Date Type Department Care Team (Late st Contact Info) Description 02/13/2023 Telephone [facility] MEDICINE [address] [place] [address] Handy Elias MD [address] [place], [place] [phone] Med Refill Social History Tobacco Use Types [...] oxyCODONE (Roxicodone) 5 MG immediate release tablet [facility]/pharmacy #[id number] - [place], [place] - [address] [place] [address] [address] [facility] [address] documented in this encounter Plan of Treatment Upcoming Encounters Date Type Department Care Team (Late st Contact Info) Description 05/08/2024 2:00 PM EDT Office Visit [facility] MED & PEDS [address] [place] [address] Handy Elias MD [address] [place] [address] 05/25/2024 3:00 PM EDT Telemedicine [facility] MED & PEDS [address] [place] [address] Tessa Cox, MARITA 505 [place] [address] documented as of this encounter Visit Diagnoses Not on filedocumented in this encounter Care Teams X Ray Nurse Relationship Specialty Start Date End Date Handy Elias MD [address] [place] [address] PCP - General Internal Medicine 11/17/12 documented as of this encounter
--- OUTSIDE RECORDS SUMMARY | 2024-04-22 14:21 | XMS_ITS | Encounter Summary ---
Author Organization [employer] Address [address] [facility] [address] [place] [address] Care Team Providers Care Filter Filler Name Role Phone Handy Elias MD Primary Care Provider [phone] Reason for Visit * Reason Onset Date Comments Results 04/02/2024 Encounter Details Date Type Department Care Team ([facility] st Contact Info) Description 04/02/2024 Telephone [facility]S [address] [place], [place] [phone] Renay Almeida, MARITA Results Social History Tobacco [...] specialist on Apr 15. Handy Elias MD [facility] Med & Peds Nurses Please call [...] [facility] MED & PEDS [address] [place] [address] Handy Elias MD 505 [place] [address] 05/25/2024 3:00 PM EDT Telemedicine [facility] MED & PEDS [address] [place] [address] Tessa Cox, MARITA 505 [place] [address] documented as of this encounter Visit Diagnoses Not on filedocumented in this encounter Care Teams Filter Filler Relationship Specialty Start Date End Date Handy Elias MD 505 [place] [address] PCP - General Internal Medicine 11/17/12 documented as of this encounter
--- OUTSIDE RECORDS SUMMARY | 2024-04-22 14:21 | XMS_ITS | Encounter Summary ---
Author Organization [employer] Address [address] [place] [address] Care Team Providers Care Business Librarian Name Role Phone Handy Elais MD Primary Care Provider [phone] Reason for Referral * Consultation (Routine) - Authorized Specialty Diagnoses / Procedures Referred By Contnanci t Referred To Contact Otolaryngology Diagnoses Other chronic sinusitis Handy Elias MD [address] [place] [address] Phone: tel: fax: [facility] [address] Phone: tel: fax: Referral ID Status Reason Start Date Expiration Date Visits Requested Visits Authorized [id number] Authorized Specialty Services Required 03/25/2024 03/25/2025 1 1 Encounter Details Date Type Department Care Team ([facility] st Contact Info) Description 03/25/2024 Orders Only [facility] CHC MED & PEDS [address] [place] [address] Handy Elias MD [address] [place], [place] [phone] Other chronic sinusitis (Primary Dx) Social History [...] Upcoming Encounters Date Type Department Care Team ([facility] st Contact Info) Description 05/08/2024 2:00 PM EDT Office Visit [facility] MED & PEDS [address] [place] [address] Handy Elias MD [address] [place] [address] 05/25/2024 3:00 PM EDT Telemedicine [facility] [address] [place] [address] Tessa Cox RN [address] [place] [address] Scheduled Referrals Name Type Priority Associated Diagnoses Orde r Schedule Referral to ENT Outpatient Referral Routine Other chronic sinusitis Expected: 03/25/2024 (Approximate), Expires: 03/25/2025 documented as of this encounter Visit Diagnoses Diagnosis Other chronic sinusitis- Primary documented in this encounter Care Teams Business Librarian Relationship Specialty Start Date End Date Handy Elias MD [address] [place] [address] PCP - General Internal Medicine 11/17/12 documented as of this encounter
--- OUTSIDE RECORDS SUMMARY | 2024-04-22 14:21 | XMS_ITS | Encounter Summary ---
Author Organization [employer] Address [address] [place] [address] 7 [place] [address] Care Team Providers Care Toll Line Inspector Name Role Phone Handy Elias MD Primary Care Provider [phone] Encounter Details Date Type Department Care Team (Late Contact Info) Description 03/14/2023 Orders Only [facility] CHC MED & PEDS [address] [place] [address] Handy Elias MD 505 [place] [address] Chronic pain syndrome; Primary insomnia Social History [...] 2:00 PM EDT Office Visit [facility] MED & PEDS [address] [place] [address] Handy Elias MD [address] [place] [address] 05/25/2024 3:00 PM EDT Telemedicine [facility] MED & PEDS [address] [place] [address] Tessa Cox RN [address] [place] [address] documented as of this encounter Visit Diagnoses Diagnosis Chronic pain syndrome Primary insomnia Persistent disorder of initiating or maintaining sleep documented in this encounter Care Teams Toll Line Inspector Relationship Specialty Start Date End Date Handy Elias MD [address] [place] [address] PCP - General Internal Medicine 11/17/12 documented as of this encounter
--- OUTSIDE RECORDS SUMMARY | 2024-04-22 14:21 | XMS_ITS | Encounter Summary ---
Author Organization [employer] Address [address] [facility] 7 [place] [address] Care Team Providers Care Articulation Officer Name Role Phone Handy Allen MD Primary Care Provider [phone] Reason for Visit * Reason Onset Date Comments Results 03/24/2024 Encounter Details Date Type Department Care Team ([facility] st Contact Info) Description 03/24/2024 Telephone [facility] MEDICINE [address] [place] [address] Handy Allen MD [address] [place], [place] [phone] Results Social History Tobacco Use Types Packs/Day [...] Blood test Date when done: 03/23 Facility: [facility] [place] Pt states Prefers to Talk to PCP Contact pt at [phone] documented in this encounter Plan of Treatment Upcoming Encounters Date Type Department Care Team ([facility] st Contact Info) Description 05/08/2024 2:00 PM EDT Office Visit [facility] MED & PEDS [address] [place] [address] Handy Allen MD [address] [place] [address] 05/25/2024 3:00 PM EDT Telemedicine [facility] MED & PEDS [address] [place] [address] Tessa Cox RN [address] [place] [address] documented as of this encounter Visit Diagnoses Not on filedocumented in this encounter Care Teams Articulation Officer Relationship Specialty Start Date End Date Handy Allen MD [address] [place] [address] PCP - General Internal Medicine 11/17/12 documented as of this encounter
--- OUTSIDE RECORDS SUMMARY | 2024-04-22 14:21 | XMS_ITS | Encounter Summary ---
Author Organization [employer] Address [address] [place] [address] 7 [place] [address] Care Team Providers Care Miter Cutter Name Role Phone Handy Elias MD Primary Care Provider [phone] Reason for Visit * Reason Onset Date Comments Med Refill 07/30/2023 Encounter Details Date Type Department Care Team (Late st Contact Info) Description 07/30/2023 Telephone [facility] MEDICINE [address] [place] [address] Handy Elias MD [address] [place], [place] [phone] Med Refill Social History Tobacco Use Types [...] immediate release tablet To be sent to: [facility]/pharmacy #[id number] - [place] - [address] [place] [address] [address], [place] [address] documented in this encounter Plan of Treatment Upcoming Encounters Date Type Department Care Team (Late st Contact Info) Description 05/08/2024 2:00 PM EDT Office Visit [facility] MED & PEDS [address] [facility] [place] [address] Handy Elias MD [address] [place] [address] 05/25/2024 3:00 PM EDT Telemedicine [facility] MED & PEDS [address] [place] [address] Tessa Cox RN 505 [place] [address] documented as of this encounter Visit Diagnoses Not on filedocumented in this encounter Care Teams Miter Cutter Relationship Specialty Start Date End Date Handy Elisa MD [address] [place] [address] PCP - General Internal Medicine 11/17/12 documented as of this encounter
--- OUTSIDE RECORDS SUMMARY | 2024-04-22 14:21 | XMS_ITS | Encounter Summary ---
Author Organization [employer] Address [address] [place] [address] 7 [place] [address] Care Team Providers Care Intervention Specialist Name Role Phone Handy Elias MD Primary Care Provider Encounter Details Date Type Department Care Team (Late Contact Info) Description 12/12/2022 Orders Only [facility] CHC MED & PEDS [address] [place], [place] [phone] Handy Elias MD [address] [place], [place] [phone] Vitamin B12 deficiency (Primary Dx) Social History [...] [facility] [address] [place], [place] [phone] Handy Elias MD [address] [place], [place] [phone] 05/25/2024 3:00 PM EDT Telemedicine [facility] MED & PEDS [address] [place] [address] Tessa Cox RN 505 [place] [address] documented as of this encounter Visit Diagnoses Diagnosis Vitamin B12 deficiency- Primary Other B-complex deficiencies documented in this encounter Care Teams Intervention Specialist Relationship Specialty Start Date End Date Handy Elias MD [address] [place] [address] PCP - General Internal Medicine 11/17/12 documented as of this encounter
--- OUTSIDE RECORDS SUMMARY | 2024-04-22 14:21 | XMS_ITS | Encounter Summary ---
Author Organization [employer] Address [address] [place] [address] 7 [place] [address] Care Team Providers Care Button Broacher Name Role Phone Handy Elias MD Primary Care Provider [phone] Encounter Details Date Type Department Care Team (Late Contact Info) Description 12/26/[address] [facility] MEDICINE [address] [place], [place] [phone] Handy Elias MD [address] [place], [place] [phone] Social History Tobacco Use Types Packs/Day Years [...] PM EDT Office Visit [facility] CHC MED & PEDS [address] [place], [place] [phone] Handy Elias MD [address] [place], [place] [phone] 05/25/2024 3:00 PM EDT Telemedicine [facility] MED & PEDS [address] [place], [place] [phone] Tessa Cox, MARITA [address] [place] [address] documented as of this encounter Visit Diagnoses Not on filedocumented in this encounter Care Teams Button Broacher Relationship Specialty Start Date End Date Handy Elias MD [address] [place] [address] PCP - General Internal Medicine 11/17/12 documented as of this encounter
--- OUTSIDE RECORDS SUMMARY | 2024-04-22 14:21 | XMS_ITS | Encounter Summary ---
Author Organization [employer] Address [address] [facility] 7 [place] [address] Care Team Providers Care Hr Representative Name Role Phone Handy Elias MD Primary Care Provider [phone] Reason for Visit * Reason Comments Med Refill Encounter Details Date Type Department Care Team ([facility] st Contact Info) Description 04/12/2024 Refill [facility] CHC MED & PEDS [address] [place], [place] [phone] Handy Elias MD [address] [place], [place] [phone] Primary insomnia Social History Tobacco Use Types [...] t he electric, gas, oil or water [employer] threatened to shut off services in your [...] [facility] MED & PEDS [address] [place] [address] Handy Elias MD [address] [place] [address] 05/25/2024 3:00 PM EDT Telemedicine [facility] MED & PEDS [address] [place] [address] Tessa Cox, MARITA [address] [place] [address] documented as of this encounter Visit Diagnoses Diagnosis Primary insomnia Persistent disorder of initiating or maintaining sleep documented in this encounter Care Teams Hr Representative Relationship Specialty Start Date End Date Handy Elias MD [address] [place] [address] PCP - General Internal Medicine 11/17/12 documented as of this encounter
== END 2024-04-22 12:07 | disposition home or self-care (01) ==
PROVIDERS: PCP Family Medicine; Visit Provider Internal Medicine Hypertension Specialist
DX: I10 Essential (primary) hypertension (principal)
CPT/HCPCS: 99214

== ENCOUNTER → 2024-04-22 11:24 | Outpatient (BNVA) | payer MEDICARE, SELFPAY | PROVIDERS: PCP Family Medicine; Visit Provider Internal Medicine Hypertension Specialist | DX: I12.9 Hypertensive chronic kidney disease with stage 1 through stage 4 chronic kidney disease, or unspecified chronic kidney disease (principal); N18.2 Chronic kidney disease, stage 2 (mild); Z79.899 Other long term (current) drug therapy | CPT/HCPCS: 99212 ==

== ENCOUNTER 2024-07-15 14:36 | Outpatient (REF) | payer MEDICARE, SELFPAY ==
--- OUTSIDE RECORDS SUMMARY | 2024-07-15 14:45 | XMS_ITS | Encounter Summary ---
Author Organization [employer] Address [address] [place] [address] Care Team Providers Care Restaurant Hourly Manager Name Role Phone Handy Elias MD Primary Care Provider [phone] Reason for Referral * Consultation (Routine) - Closed Specialty Diagnoses / Procedures Referred By Maurice weaver Referred To Contact Otolaryngology Diagnoses Other chronic sinusitis Handy Elias MD [address] [place] [address] Phone: tel: fax: [facility] [address] Phone: tel: fax: Referral ID Status Reason Start Date Expiration Date V isits Requested Visits Authorized [id number] Closed Specialty Services Required 03/25/2024 03/25/2025 1 1 Encounter Details Date Type Department Care Team ([facility] st Contact Info) Description 03/25/2024 Orders Only [facility] CHC MED & PEDS [address] [place], [place] [phone] Handy Elias MD [address] [place], [place] [phone] Other chronic sinusitis (Primary Dx) Social History Tobacco Use Types Packs/Day Years Used Date Smoking Tobacco: Every Day Cigarettes Passive Smoke Exposure: Past Smokeless Tobacco: Never Comments:Smokes 5 to 10 cig a week now x the last 6 months. Housing Stability Answer Date Recorded What is your housing situation today? I have nancy sing 08/07/[address] you li [...] Care Team (Late st Contact Info) Description 07/30/2024 4:00 PM EDT Office Visit [facility] MED & PEDS [address] [place] [address] Handy Elias MD [address] [place] [address] 08/12/2024 2:15 PM EDT Telemedicine [facility] MED & PEDS [address] [place] [address] Tessa Cox RN [address] [place] [address] Scheduled Referrals Name Type Priority Associated Diagnoses Orde r Schedule Referral to ENT Outpatient Referral Routine Other chronic sinusitis Expected: 03/25/2024 (Approximate), Expires: 03/25/2025 documented as of this encounter Visit Diagnoses Diagnosis Other chronic sinusitis- Primary documented in this encounter Care Teams Restaurant Hourly Manager Relationship Specialty Start Date End Date Handy Elias MD [address] [place] [address] PCP - General Internal Medicine 11/17/12 documented as of this encounter
--- OUTSIDE RECORDS SUMMARY | 2024-07-15 14:46 | XMS_ITS | Encounter Summary ---
Author Organization [employer] Address [address] [place] [address] 7 [place] [address] Care Team Providers Care Toolroom Clerk Name Role Phone Handy Elias MD Primary Care Provider [phone] Reason for Visit * Reason Comments Med Refill Encounter Details Date Type Department Care Team ([facility] st Contact Info) Description 06/18/2024 Refill [facility] CHC MED & PEDS [address] [place], [place] [phone] Handy Elias MD [address] [place], [place] [phone] Primary insomnia Social History Tobacco Use Types Packs/Day Years Used Date Smoking Tobacco: Every Day Cigarettes Passive Smoke Exposure: Past Smokeless Tobacco: Never Comments:Smokes 5 to 10 cig a week now x the last 6 months. Depression Answer Date Recorded Patient Health Questionnaire-9 Score 2 05/08/2024 Patient Health Questionnaire-9 Score 2 05/08/2024 Last PHQ-9: Questionnaire Data Not on file 0 05/08/2024 Housing Stability Answer Date Recorded What is [...] off services in your home? No 08/07/2023 Depression Answer Date Recorded Patient Health Questionnaire-2 Score 0 05/08/2024 Internet Access Answer Date Recorded Internet Access [...] Description 07/30/2024 4:00 PM EDT Office Visit [facility] MED & PEDS [address] [place] [address] Handy Elias MD [address] [place] [address] 08/12/2024 2:15 PM EDT Telemedicine [facility] MED & PEDS [address] [place] [address] Tessa Cox, MARITA [address] [place] [address] documented as of this encounter Visit Diagnoses Diagnosis Primary insomnia Persistent disorder of initiating or maintaining sleep documented in this encounter Additional Health Concerns Assessment Noted Time PHQ-9 Depression Total Score: 2 05/09/19 25 2:07 PM EDT documented as of this encounter Care Teams Toolroom Clerk Relationship Specialty Start Date End Date Handy Elias MD [address] [place] [address] PCP - General Internal Medicine 11/17/12 documented as of this encounter
--- OUTSIDE RECORDS SUMMARY | 2024-07-15 14:46 | XMS_ITS | Clinical Summary ---
Author Organization [employer] Address [address] [place] [address] [address] [place] [address] Care Team Providers Care Mental Telepathist Name Role Phone Handy Elias MD Primary Care Provider [phone] Allergies Active Allergy Reactions Criticality Noted Date Comments Bee Venom Other 10/04/2020 Other reaction(s): Other (see comments) Dust Mite Extract 08/20/2023 Molds & Smuts 02/21/2022 Pineapple Other 10/04/2020 Other reaction(s): Other (see comments) Pollen Extract 08/20/2023 Medications * This document contains information received from the source organization and may not represent a complete record from that organization. cholecalciferol (Vitamin D-3) 25 MCG (1000 UT) [...] by mouth in the morning. Active zoster vaccine-recombi nant adjuvanted (Shingrix) 50 MCG/0.5ML vaccine Inject 0.5 mL into the shoulder, thigh, or buttocks. 022 Active loratadine (Claritin) 10 MG tablet Take by mouth. Activ e triamcinolone (Kenalog) 0.1 % creamIndication s:Dry skin to apply to the affected area 2 times a day Strength: 0.1 % 80 g 3 023 Active pseudoephedrine ER (Sudafed 12 Hour) 120 MG 12 hr tablet Take 1 tablet (120 mg) by mouth every 12 (twelve) hours. Do not crush, chew, or split. 20 tablet 023 Active acetaminophen (Tylenol 8 Hour) 650 MG ER tabletIndicatio ns:Chronic pain syndrome TAKE 1 TABLET BY MOUTH EVERY 8 HOURS NEEDED 90 tablet 5 023 Active cyclobenzaprine (Flexeril) 10 MG tablet TAKE 1 TABLET BY MOUTH TWICE A DAY NEEDED FOR MUSCLE SPASMS 30 tablet 023 Active BD Integra Syringe 25G X 1 3 ML miscIndications :Vitamin B12 deficiency USE 1 SYRINGE BY INTRAMUSCULAR ROUTE ONCE A MONTH FOR VITMAIN B12 INJECTIONS 12 each 1 023 Active furosemide (Lasix) 20 MG tabletIndicatio ns:Swelling of lower limb Take 1 tablet (20 mg) by mouth in the morning. 30 tablet 023 Active exenatide ER (Bydureon BCi) 2 MG/0.85ML pen Inject 1 pen (2 mg) under the skin 1 (one) time per week. 4 mL 11 023 Active fluvoxaMINE (Luvox) 100 MG tabletIndicatio ns:Depression with anxiety Take 1 tablet (100 mg) by mouth 2 times daily. 60 tablet 11 024 Active temazepam (Restoril) 7.5 MG capsuleIndicati ons:Other insomnia Take 1 capsule (7.5 mg) by mouth if needed at bedtime for sleep. 30 capsule 024 Active dicyclomine (Bentyl) 10 MG capsuleIndicati ons:Left lower quadrant abdominal pain Take 1 capsule (10 mg) by mouth 4 times daily. 120 capsule 11 024 2024 Active hydrOXYzine pamoate (Vistaril) 50 MG capsuleIndicati ons:Anxiety TAKE 1 CAPSULE BY MOUTH EVERY 6 HOURS IF NEEDED FOR ITCHING 90 capsule 3 024 Active cyanocobalamin (Vitamin B-12) 1000 MCG/ML injectionIndica tions:Deficienc y of other specified B group vitamins INJECT 1 ML ONCE A MONTH DIRECTED 12 mL 024 Active econazole nitrate 1 % cream Apply topically Once per day. 85 g 3 025 2025 Active naloxone (Narcan) 4 mg/0.1 mL nasal sprayIndication s:Chronic pain syndrome Administer 1 spray (4 mg) into affected nostril(s) if needed for opioid reversal. 2 each 1 025 Active amLODIPine (Norvasc) 5 MG tabletIndicatio ns:Primary hypertension Take 2 tablets (10 mg) by mouth Once per day. daily 90 tablet 3 025 Active sildenafil (Viagra) 100 MG tabletIndicatio ns:Erectile disorder Take 1 tablet (100 mg) by mouth if needed for erectile dysfunction. Every day as needed approximately 1 hour before sexual activity 30 tablet 3 025 Active zolpidem (Ambien) 10 MG tabletIndicatio ns:Primary insomnia TAKE 1 TABLET BY MOUTH EVERY DAY AT BEDTIME NEEDED FOR SLEEP 30 tablet 025 Active oxyCODONE (Roxicodone) 5 MG immediate release tabletIndicatio ns:Chronic pain syndrome Take 1 tablet (5 mg) by mouth every 4 (four) hours if needed for severe pain for up to 28 days. Do not start before July 01, 2024. 168 tablet 025 2024 Active omeprazole (PriLOSEC) [address] capsuleIndicati ons:Gastroesoph ageal reflux disease without esophagitis TAKE 1 CAPSULE BY MOUTH EVERY DAY BEFORE A MEAL 90 capsule 3 025 Active omeprazole (PriLOSEC) [address] capsuleIndicati ons:Gastroesoph ageal reflux disease without esophagitis TAKE 1 CAPSULE BY MOUTH EVERY DAY BEFORE A MEAL 90 capsule 3 024 2024 Discontinued zolpidem (Ambien) 10 MG tabletIndicatio ns:Primary insomnia TAKE 1 TABLET BY MOUTH EVERY DAY AT BEDTIME NEEDED FOR SLEEP 30 tablet 025 2024 Discontinued(R eorder (will not trigger notification to Pharmacy)) oxyCODONE (Roxicodone) 5 MG immediate release tabletIndicatio ns:Chronic pain syndrome Take 1 tablet (5 mg) by mouth every 4 (four) hours if needed for severe pain for up to 28 days. 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 Skin tag 02/21/2018 CKD (chronic kidney disease), stage III 09/23/19 18 Osteoporosis 09/22/2017 Chronic pain syndrome 11/20/2016 Erectile dysfunction 11/24/2012 Sciatica 11/24/2012 Hypercholesterolemia 07/14/2012 Hypertension 07/14/2012 Low back pain 07/14/2012 Obstructive sleep apnea syndrome 01/04/2010 Encounters Date Type Department Care Team Description 07/13/2024 Refill [facility] [address] [place] [address] Handy Elias MD Gastroesophageal reflux disease without esophagitis 07/07/2024 Telephone [facility] [address] [place] [address] Handy Elias MD Referral 06/30/2024 Refill [facility] [address] [place] [address] Handy Elias MD Chronic pain syndrome 06/23/2024 Orders Only [facility] [address] [place] [address] Handy Elias MD Chronic midline low back pain, unspecified whether sciatica present (Primary Dx) 06/23/2024 Telephone [facility] [address] [place] [address] Handy Elias MD 06/22/2024 Refill [facility] [address] [place] [address] Handy Elias MD Primary insomnia 06/18/2024 Refill [facility] [address] [place] [address] Handy Elias MD Primary insomnia 06/02/2024 Refill [facility] [address] [place] [address] Tessa Cox, college or university faculty member pain syndrome 06/02/2024 Telephone [facility] [address] [place] [address] Handy Elias MD Med Refill 05/25/2024 3:00 PM EDT Telemedicine [facility] [address] [place] [address] Tessa Cox, MARITA Long-term current use of opiate analgesic 05/25/2024 Travel 05/17/2024 Refill [facility] [address] [place] [address] Handy Elias MD Primary insomnia 05/11/2024 Orders Only [facility] [address] [place] [address] Melanie Sweet MD 05/08/2024 2:00 PM EDT Office Visit [facility] [address] [place] [address] Handy Elias MD Primary hypertension (Primary Dx); Dietary counseling; Exercise counseling; Class 2 severe obesity due to excess calories with serious comorbidity and body mass index (BMI) of 38.0 to 38.9 in adult ([facility]); Erectile disorder; Hypercholesterolemia; Encounter for immunization 05/08/2024 Travel 05/07/2024 Telephone [facility] [address] [place] [address] Handy Elias MD chart prep 05/06/2024 Refill [facility] [address] [place] [address] Handy Elias MD Chronic pain syndrome 05/01/2024 Patient Outreach [facility] [address] [place] [address] Handy Elias MD Pre-visit Planning (SDOH screening negative and tobacco screening negative) from Last 3 Months Immunizations Immunization Administration Dates Next Due Influenza Injectable Quadriv alant Preservative Free IIV4 MDCK 11/28/2019 Influenza injectable quadriv alent IIV4 with preservative 11/18/2017,12/19/2015 Influenza injectable quadriv alent preservative free 01/03/2021,11/20/2016,12/08/2014 Influenza, IIV3, injectable 12/03/2013 Influenza, Split (incl. dameon fied surface antigen) 11/24/2012,12/26/2011 Moderna Covid-19 Vaccine 12+ 03/23/2021 Pfizer Covid-19 Vaccine 12+ 10/03/2020, Pneumococcal Conjugate PCV 20 05/08/2024 RSV-MAB, Unspecified 06/13/2024 TD (adult), 2 Lf tetanus tox oid, [...] Sign Reading Time Taken Comments Blood Pressure 156/90 05/08/2024 2:04 PM EDT Pulse 71 05/08/2024 2:04 PM EDT Temperature 36.7 ??C (98 ??F) 05/08/2024 2:04 PM EDT Respiratory Rate 20 05/08/2024 2:04 PM EDT Oxygen Saturation 98% 05/08/2024 2:04 PM EDT Inhaled Oxygen Concentration - - Weight 124 kg (273 lb) 05/08/2024 2:04 PM EDT Height 180.3 cm (5' 11 ) 05/08/2024 2:04 PM EDT Body Mass Index 38.08 05/08/2024 2:04 PM EDT Plan of Treatment Upcoming Encounters Date Type Department Care Team (Late st Contact Info) Description 07/30/2024 4:00 PM EDT Office Visit [facility] [address] [place] [address] Handy Elias MD [address] [place] [address] 08/12/2024 2:15 PM EDT Telemedicine [facility] [address] [place] [address] Tessa Cox RN [address] [place] [phone] Health Maintenance Due Date Last Done Comments CT Colonography 1958 FIT DNA/Cologuard 1958 FIT 1958 FOBT 1960 Sigmoidoscopy 1960 Hepatitis C Screening 01/23/1976 Hepatitis A Vaccines (1 of 2 - Risk 2-dose series) 1977 Hepatitis B Vaccines (1 of 3 - Risk 3-dose series) 2018 RSV Patients and Patients Aged 60 years or older (1 - Risk 60-74 years 1-dose series) 2018 Colonoscopy 05/29/2023 05/28/2013 Colorectal Cancer Screening 05/29/2023 COVID-19 Vaccine ( season) 2023 11/27/2021, 03/23/2021, 10/03/2020, Additional history exists Alcohol/Substance Use Screening 03/19/2025 03/19/2024 SDOH Screening 05/01/2025 05/01/2024 Depression Screening 05/08/2025 05/08/2024, 05/09/19 Tobacco Screening 05/08/2025 05/08/2024 Lipid Panel 01/01/2027 01/01/2022, 07/26, 12/09/2020, Additional history exists DTaP/Tdap/Td Vaccines (2 - Td or Tdap) 11/19/2027 11/18/2017, 11/26/2008 Zoster Vaccines Completed 12/12/2022, 08/25/2022 Influenza Vaccine Completed 04/26/2024, , 12/15/2021, Additional history exists Pneumococcal Vaccine: 50+ Years Completed 05/08/2024, 11/06/2021 RSV under 20 months Aged Out 06/13/2024 No longe r eligible based on patient's age to complete this topic HIB Vaccines Aged Out No longer eligi ble based on patient's age to complete this topic HPV Vaccines Aged Out No longer eligi ble based on patient's age to complete this topic IPV Vaccines Aged Out No longer eligi ble based on patient's age to complete this topic Meningococcal B Vaccine Aged Out No l onger eligible based on patient's age to complete this topic Meningococcal Vaccine Aged Out No keshia zeeshan eligible based on patient's age to complete this topic Rotavirus Vaccines Aged Out No longer eligible based on patient's age to complete this topic Procedures Procedure Name Priority Date/Time Associated Diagnosis Comments CRISTOBAL HISTORICAL LIPID PANEL Routine 01/01/2022 11:44 AM EST HM COLONOSCOPY Routine 05/28/2013 from Last 3 Months or Most Recently Relevant to Health Maintenance Results * LIPID PANEL (01/01/2022 11:44 AM EST) [...] LEGACY LABS * Colonoscopy (05/28/2013) Colonoscopy Performed us Historical Provider HEALTH MAINTENANCE Final Result from Last 3 Months or Most Recently Relevant to Health Maintenance Insurance MEDICARE [facility] Care Teams Mental Telepathist Relationship Specialty Start Date End Date Handy Elias MD [address] [place] [address] BIANKA Santana [phone] PCP - General Internal Medicine 11/17/12
--- OUTSIDE RECORDS SUMMARY | 2024-07-15 14:46 | XMS_ITS | Data Portability ---
Author Organization [place] - [facility], Allergy Address [address] [address] Assessment Encounter Date Assessment Date Assessment LastModified [...] with Essie madera Not available 04/15/2024 14:44:55 04/15/2024 04/15/2024 Visit With: Cookie Blackwell Use of Antihistamines: No If yes: Vial Test Change in medications: No If yes ? ? ? Increase in asthma symptoms If yes, inhaler use: Reaction to last injections: No If yes: ? ? ? Allergy Symptoms: Other: ? ? ? Missed: Dose Aware of Vial Test Notes:? ? ? [email or web address] Not available 04/15/2024 14:55:58 04/22/2024 04/22/2024 Visit With: Cookie Blackwell Use of Antihistamines: No If yes: Vial Test Change in medications: No If yes ? ? ? Increase in asthma symptoms If yes, inhaler use: Reaction to last injections: No If yes: ? ? ? Allergy Symptoms: Other: ? ? ? Missed: Dose Aware of Vial Test Yes Notes:? ? ?aware he is back to being monthly [email or web address] Not available 04/22/2024 13:45:24 05/12/2024 05/12/2024 Visit With: Karoline Kelly RN Use of Antihistamines: No If yes: Vial Test Yes Change in medications: No If yes ? ? ? Increase in asthma symptoms If yes, inhaler use: Reaction to last injections: No If yes: ? ? ? Allergy Symptoms: Other: ? ? ? Missed: Dose Aware of Vial Test Notes:? ? ? Not available 05/12/2024 14:45:01 07/07/2024 07/07/2024 Visit With: YOANNA Potts Use of Antihistamines: No If yes: Vial Test Change in medications: No If yes ? ? ? Increase in asthma symptoms If yes, inhaler use: Reaction to last injections: No If yes: ? ? ? Allergy Symptoms: Other: ? ? ? Missed: 1month Dose Decreased Aware of Vial Test Notes:? ? ? [email or web address] Not available 07/07/2024 15:13:08 Plan of Treatment Reminders Order Date Submit Date Provider Last Modified By Organization Details Last Modified Time Details Appointments [facility]- Allergy f-up 6mon 2024 01:30P M ESSIE PLEITEZ PA-C Not available Not [...] and Address Organization Details Recorded Time Snoring 06584150 Active 2016 Snoring; Note: Date Diagnosed: 08/23/2016 4:44 PM (R06.83) Not Available [facility] 4 02:47:57 Acute pharyngit is 887824002 Active 2013 Pharyngiti s, acute; CMS Risk: low risk [facility] Treatment: new problem (to examiner): additional workup planned No te: Date Diagnosed: 12/16/2013 4:30 PM (462) Not Available [facility] 4 02:47:57 Hypertrop hy of tonsils 51253865 Active 2016 Hypertroph y of tonsils; Note: Date Diagnosed: 08/23/2016 4:50 PM (J35.1) Not Available [facility] 4 02:47:54 Acute sialoaden itis 301596840 Active 2021 Acute sialoadeni tis; Note: Date Diagnosed: 01/23/2022 3:21 PM (K11.21) Not Available [facility] 4 02:47:55 Abnormal auditory perceptio n 21534766 Active 2017 Other abnormal auditory perception s, bilateral; Note: Date Diagnosed: 09/02/2017 4:53 PM (H93.293) Not Available [facility] 4 02:47:53 Cough 44854096 Active 2016 Cough; Note: Date Diagnosed: 03/23/2016 4:25 PM (R05) Not Available [facility] 4 02:47:53 Acute sinusitis 99401602 Active 2016 Acute sinusitis, unspecifie d; Note: Date Diagnosed: 02/07/2017 3:59 PM (J01.90) Not Available [facility] 4 02:47:58 Sensorine ural hearing loss of bilateral ears 828420776 Active 2017 Sensorineu ral hearing loss, bilateral; Note: Date Diagnosed: 09/02/2017 5:33 PM (H90.3) Not Available [facility] 4 02:47:51 Posterior rhinorrhe a 53130245 Active 2016 Postnasal drip; Note: Date Diagnosed: 02/07/2017 3:59 PM (R09.82) Not Available [facility] 4 02:47:58 Simple obesity 145635604 Active 2016 Other obesity due to excess calories; Note: Date Diagnosed: 08/23/2016 4:44 PM (E66.09) Not Available [facility] 4 02:47:56 Nasal congestio n 56473427 Active 2016 Nasal congestion ; Note: Date Diagnosed: 03/23/2016 4:25 PM (R09.81) Not Available [facility] 4 02:47:57 Obstructi ve sleep apnea syndrome 32730819 Active 2016 Obstructiv e sleep apnea (adult) (pediatric ); Note: Date Diagnosed: 08/23/2016 4:44 PM (G47.33) Not Available [facility] 02:47:53 Allergic rhinitis caused by pollen 99104062 Active 2022 Allergic rhinitis due to pollen; Note: Date Diagnosed: 12/18/2022 3:52 PM (J30.1) Allergic rhinitis due to pollen; Note: Date Diagnosed: 04/19/2021 1:28 PM (J30.1) ; Start Date : 04/19/2021 Not Available [facility] 4 02:47:55 Allergic rhinitis 51022800 Active 2023 Allergic rhinitis: Due to other [...] 2:10 PM (477 Not Available [facility] 4 01:08:11 Perennial allergic rhinitis 558438688 Active 2023 YOANNA SAINZ [address], [place], [address] , [facility] - [facility] [place] 4 14:51:26 Chronic sinusitis 13803484 Active 2024 ESSIE PLEITEZ PA-C [address], [place], [address] , [facility] - [facility] [place] 16:05:25 Problem Notes None recorded. Procedures Surgical History Date Name Laterality Status Provider Name and Address Organization Details Recorded Time 07/08/19 25 Allergy Immunotherapy Injections completed YOANNA POTTS [address],[place] [facility], [place], [address], [facility] - [facility] [place] 07/07/2024 15:12:46 05/13/19 25 Allergy Immunotherapy Injections completed YOANNA SAINZ [address],[place] [facility], [place], [address], [facility] - [facility] [place] 05/12/2024 14:44:23 04/22/19 25 Allergy Immunotherapy Injections completed YOANNA SAINZ [address],[place] [facility], [place], [address], [facility] - [facility] [place] 04/22/2024 13:45:00 04/15/19 25 Allergy Immunotherapy Injections completed COOKIE BLACKWELL RMAdela [address],[place] [facility], [place], [address], [facility] - [facility] [place] 04/15/2024 14:55:54 04/15/19 25 NasalEndoscopy_DP completed YUNIEL DONALD MD [address],[place] [facility], [place], [address], [facility] - [facility] [place] 04/15/2024 14:43:26 04/09/19 25 Allergy Immunotherapy Injections completed GUY NUNN, RMA [address], [place], [address], [place] - [facility] [place] 04/09/2024 15:24:18 04/03/19 25 Allergy Immunotherapy Injections completed YOANNA SAINZ [address], [place], [address], [place] [facility] [place] 04/03/2024 13:31:44 03/27/19 25 Allergy Immunotherapy Injections completed KAROLINE KELLY RN [address], [place], [address], [place] [facility] [place] 03/27/2024 13:20:20 03/13/19 25 Allergy Immunotherapy Injections completed GUY NUNN, RMA [address], [place], [address], [place] [facility] [place] 03/13/2024 14:51:01 02/26/19 25 Allergy Immunotherapy Injections completed GUY NUNN, RMA [address] [place] [address], [address], [place] [facility] [place] 02/27/2024 16:07:25 02/26/19 25 JMSNasal/Sinus Endoscopy completed ESSIE PLEITEZ PA-C [address] [place] [address], [address], [place] [facility] [place] 02/27/2024 16:37:51 02/17/20 24 Allergy Immunotherapy Injections completed KAROLINE KELLY RN [address] [facility] [address] [place],[address] [place] [address], [address], [facility] - [facility] [place] 02/17/2024 14:48:11 10/16/19 24 Allergy Immunotherapy Injections completed YOANNA SAINZ [address], [place], [address], [facility] - [facility] [place] 10/16/2023 16:51:03 09/25/19 24 Allergy Immunotherapy Injections completed KAROLINE KELLY RN [address], [place], [address], [place] [facility] [place] 09/25/2023 11:18:43 08/13/19 24 Allergy Immunotherapy Injections completed YOANNA SAINZ 100 [facility],[place] [address], [place], [address], [facility] 08/13/2023 15:02:29 07/18/19 24 Allergy Immunotherapy Injections completed YOANNA SAINZ 100 [facility] 100, [place], [address], [facility] 07/18/2023 14:51:59 Imaging Results None recorded. [...] by mouth 02/26 completed Medicati on ID: [id number] D uration Value: 12 Brand Name: predniso [...] mg tablet 02/26 completed Medicati on ID: [id number] D uration Value: 30 Brand Name: timanuela ne Send Method: E-Prescr ibed Sub s [...] mg tablet 03/16 completed Medicati on ID: [id number] D uration Value: 30 Reason: () Brand Name: citalopr am Send Method: E-Prescr ibed Sub s Allowed: subs OK Speci al Instruct ion: TAKE 1 TABLET BY MOUTH EVERY DAY Medi cationGe nericNam e: citalopr am Not Available Not Available Not Available Anafranil 50 mg capsule 02/26 completed Medicati on ID: [id number] B rand Name: Anafrani l Send Method: E-Prescr ibed Sub s Allowed: subs OK [facility] : Anafrani l Not Available Not [...] mg) tablet 2019 active Medicati on ID: 179140 B rand Name: Calcium 600 Send Method: E-Prescr ibed Sub s Allowed: subs OK [facility] : Calcium 600 Not Available Not [...] No t Available Nasonex 50 mcg/actua tion [place] 2 spray into both nostrils 02/26 completed Medicati on ID: 554223 D uration Value: 30 Prescri bed By [...] mg tablet 03/16 completed Medicati on ID: [id number] D uration Value: 30 Reason: () Brand [...] 2 puff 2021 active Medicati on ID: [id number] D uration Value: 30 Prescri bed By [...] bromide 21 mcg (0.03 %) nasal spray [place] 2 spray into both nostrils three times a day 02/26 completed Medicati on ID: [id number] D uration Value: 30 Brand Name: ipratrop ium bromide Send Method: E-Prescr ibed Sub s Allowed: subs OK Speci al Instruct ion: 2 sprays in each nostril 1-3 times a day Medi cationGe nericNam e: ipratrop ium bromide Not Available Not Available Not Available finasteri de 5 mg tablet 03/16 completed Medicati on ID: [id number] D uration Value: 30 Reason: () Brand Name: finaster kristie Send Method: E-Prescr ibed Sub s Allowed: subs OK Speci al Instruct ion: TAKE 1 TABLET BY MOUTH Saturday Y AND SATURDAY Rosalinda Conrad Name: finaster kristie [...] by mouth 02/26 completed Medicati on ID: [id number] D uration Value: 7 Prescri bed By [...] by mouth 02/26 completed Medicati on ID: [id number] D uration Value: 10 Prescri bed By Name: DAYANNA Liang nd Name: guaifene sin Send Method: E-Prescr ibed Sub s Allowed: subs OK Medic ationGen ericName : guaifene sin Not Available Not Available Not Available oxymetazo line 0.05 % nasal spray 03/16 completed Medicati on ID: [id number] P rescribe d By Name: DAYANNA Liang [...] extended release 10/24 completed Medicati on ID: 553025 B rand Name: bupropio n HCl Send Method: E-Prescr ibed Sub s Allowed: subs OK Speci al Instruct ion: TAKE 1 TABLET BY MOUTH EVERY MORNING Medicati onGeneri cName: bupropio n HCl Not Available Not Available Not Available Fosamax Plus D 70 mg-2,800 unit tablet 02/26 completed Medicati on ID: 764900 B rand Name: Fosamax Plus D Send [...] mg capsule 10/24 completed Medicati on ID: 804088 B rand Name: CoQ-10 S end Method: [...] Available B12 09/13 completed Medicati on ID: [id number] B rand Name: b12 Send Method: E-Prescr ibed Sub s Allowed: subs OK Medic ationGen ericName : b12 Not Available Not Available Not Available Dulera 200 mcg-5 mcg/actua tion HFA aerosol inhaler 2 puff 02/26 completed Medicati on ID: [id number] D uration Value: 90 Brand Name: Dulera [...] Updated DateTime 04/15/2024 180.34 cm 37 kg/m2 599031.98 g Ector Pedraza [place] - [facility] 04/15/2024 14:10:22 Social History None recorded. Functional Status None recorded. Mental Status None recorded. Family History Nothing Reported. Medical History Condition Response Hypertension Y GERD/Reflux Y High Cholesterol Y Past Encounters Encounter ID Performer Location Encounter Start Date Encounter Closed Date Diagnosis/Indication Diagnosis SNOMED-CT Code Diagnosis ICD10 Code Diagnosis Note [id number] YOANNA SAINZ Allergy 100 [facility],[place] 100 [facility] BIANKA BRITO [address] 07/18/2023 14:48:19 07/18/2023 15:28:24 Perennial allergic rhinitis 794905347 J30.89 [id number] SHAAN NORMAN PA-C [facility] [address] [facility] [place] [address] 07/23/2023 13:05:54 07/23/2023 13:46:22 Allergic rhinitis 90898164 J30.9 Nasal congestion 7211731 0 R09.81 Posterior rhinorrhea 758 10485 R09.82 [id number] COOKIE BLACKWELL [facility] Allergy [address] [place] [address] 100 [place] [address] 08/13/2023 14:55:05 08/13/2023 15:27:43 Perennial allergic rhinitis 102465843 J30.89 [id number] KAROLINE KELLY RN Allergy [address] [place] [address], [place] [address] 09/25/2023 10:48:16 09/25/2023 11:19:33 Perennial allergic rhinitis 629259652 J30.89 [id number] COOKIE BLACKWELL [facility] Allergy [address] [place] [address] 100 [place] [address] 10/16/2023 15:40:04 10/16/2023 17:27:25 Perennial allergic rhinitis 220152217 J30.89 [id number] KAROLINE KELLY RN Allergy [address] [place] [address] 100 [place] [address] 02/17/2024 13:50:57 02/17/2024 14:49:34 Perennial allergic rhinitis 151236100 J30.89 [id number] ESSIE PLEITEZ PA-C [facility] [address] [place] [address] 02/27/2024 15:21:49 02/27/2024 16:04:55 Chronic sinusitis 00286948 J32.9 Perennial allergic rhinitis 901822275 J30.89 [id number] GUY NUNN, [facility] Allergy [address] [place] [address],[facility] 100 [facility] [place] [place] [address] 02/27/2024 16:06:49 02/27/2024 16:07:58 Perennial allergic rhinitis 905262712 J30.89 [id number] [facility], [facility] Allergy [address] [place] [address],[place] [address] [place] [address] 03/13/2024 14:34:16 03/13/2024 14:51:30 Perennial allergic rhinitis 607613857 J30.89 [id number] COOKIE BLACKWELL [facility] Allergy [address] [place] [address],[facility] [address] [place] [address] 03/27/2024 13:00:24 03/27/2024 13:21:07 Perennial allergic rhinitis 234598317 J30.89 [id number] [facility], [facility] Allergy [address] [place] [address], ite [address] [place] [address] 04/03/2024 12:51:55 04/03/2024 13:32:07 Perennial allergic rhinitis 531005631 J30.89 [id number] [facility] Allergy [address] [place] [address] ite [address] [place] [address] 04/09/2024 14:46:04 04/09/2024 15:25:13 Perennial allergic rhinitis 626133775 J30.89 [id number] YUNIEL DONALD MD [facility] [place] [address] [place] [address] 04/15/2024 13:59:30 04/15/2024 14:47:16 Allergic rhinitis 44831299 J30.9 [id number] COOKIE BLACKWELL [facility] Allergy [address] [place] [address] ite [address] [place] [address] 04/15/2024 14:54:56 04/15/2024 14:56:12 Perennial allergic rhinitis 241733240 J30.89 [id number] COOKIE BLACKWELL [facility] Allergy [address] [place] [address] ite [address] [place] [address] 04/22/2024 13:22:05 04/22/2024 14:29:58 Perennial allergic rhinitis 572741488 J30.89 [id number] KAROLINE KELLY RN Allergy [address] [place], [place] [address] [address] [place] [address] 05/12/2024 14:43:08 05/12/2024 14:45:26 Perennial allergic rhinitis 944740075 J30.89 [id number] GUY FELICIA, RMA Allergy 100 [facility], ite 100 [facility] BIANKA BRITO [address] 07/07/2024 14:56:36 07/07/2024 15:15:32 Perennial allergic rhinitis 518185145 J30.89 Health Concerns Section Related Observation LastModified by Organization Detai ls LastModified Time None Recorded Concern Status LastModified by Organization Details LastModified Time None Recorded Advance Directives Directive None Recorded Payers Insurance Date Sequence Insurance Name Policy Number Policy Aranda Covered Member ID Aranda Member ID Guarantor Name 07/07/2024 2 [place] [id number] Henri Espino [id number] Henri Espino 07/07/2024 1 [place] [employer] Henri Espino [id number] Henri Espino Notes Date Note Type Note Provider Name and Address Organization Details Recorded Time 04/15/2024 text/html PV 02/27/24 Essie - sinus, culture takenmixed martín, post treatment ct sinus requested culture + for Haemophilus parainfluenzae.05/16 augmentin 14d4/2/24 augmentin 14d6//24 cipro 10d1024 augmentin 10d11//24 levaquin 14d12/24 augmentin 14d12//24 doxy 14d1/ bactrim 14d w prednisone 3d04/10/24 doxy 14d SCIT 09/2020 - presentweekly to catch up then to resume monthly 03/23/24 [facility], smal retention cyst right posterior ethmoid sinus describes sig PND volumePulm Dr [facility] at [place] YUNIEL ODNALD MD 100 [facility] 100, [place], [address], [facility] - [facility] 04/15/2024 14:45:10
--- OUTSIDE RECORDS SUMMARY | 2024-07-15 14:46 | XMS_ITS | Encounter Summary ---
Author Organization [employer] Address [address] [facility] 7 [place] [address] Care Team Providers Care Orange Picking Supervisor Name Role Phone Handy Elias MD Primary Care Provider +1- [phone] Reason for Visit * Reason Onset Date Comments Call Back Request 06/19/2023 Encounter Details Date Type Department Care Team (Late st Contact Info) Description 06/19/2023 Telephone [facility] MEDICINE [address] [place], [place] [phone] Handy Elias MD [address] [place] [address] Call Back Request Social History Tobacco Use [...] Department Care Team (Late Contact Info) Description 07/30/2024 4:00 PM EDT Office Visit [facility] [address] [place] [address] Handy Elias MD [address] [place] [address] 08/12/2024 2:15 PM EDT Telemedicine [facility] [address] [place] [address] Tessa Cox RN 505 [place] [address] documented as of this encounter Visit Diagnoses Not on filedocumented in this encounter Care Teams Orange Picking Supervisor Relationship Specialty Start Date End Date Handy Elias MD [address] [place] [address] PCP - General Internal Medicine 11/17/12 documented as of this encounter
--- OUTSIDE RECORDS SUMMARY | 2024-07-15 14:46 | XMS_ITS | Encounter Summary ---
Author Organization [employer] Address [address] [place] [address] 7 [place] [address] Care Team Providers Care Individualized Education Plan Aide Name Role Phone Handy Elias MD Primary Care Provider +1- [phone] Encounter Details Date Type Department Care Team (Late Contact Info) Description 12/12/2022 Orders Only [facility]S [address] [place], [place] [phone] Handy Elias MD [address] [place], [place] [phone] Vitamin B12 deficiency (Primary Dx) Social History [...] Description 07/30/2024 4:00 PM EDT Office Visit [facility] [address] [place], [place] [phone] Handy Elias MD [address] [place] [address] 08/12/2024 2:15 PM EDT Telemedicine [facility] [address] [place], [place] [phone] Tessa Cox, MARITA [address] [place] [address] documented as of this encounter Visit Diagnoses Diagnosis Vitamin B12 deficiency- Primary Other B-complex deficiencies documented in this encounter Care Teams Individualized Education Plan Aide Relationship Specialty Start Date End Date Handy Elias MD [address] [place] [address] PCP - General Internal Medicine 11/17/12 documented as of this encounter
--- OUTSIDE RECORDS SUMMARY | 2024-07-15 14:46 | XMS_ITS | Clinical Summary ---
Author Organization [facility] Address [address] [place] [address] Phone Care Team Providers Care Rod Buster Helper Name Role Phone Handy Elias MD Primary Care Provider +1- [phone] Allergies Active Allergy Reactions Criticality Noted Date [...] Due Date Last Done Comments Pneumococcal Vaccine: 50+ Ye ars (1 of 2 - PCV) 1977 Colorectal Cancer Screening: Annual FOBT 2007 Colorectal Cancer Screening: Colonoscopy 2007 Colorectal Cancer Screening: Sigmoidoscopy 2007 Hepatitis B Vaccine (1 of 3 - Risk 3-dose series) 2018 Influenza Vaccine (Season Ended) 2024 01/03/2021, 11/28/2019, 11/18/2017, Additional [place] exists [place] Care Teams Rod Buster Helper Relationship Specialty Start Date End Date Handy Elias MD PCP - General Internal Medicine 10/19/20
--- OUTSIDE RECORDS SUMMARY | 2024-07-15 14:46 | XMS_ITS | Encounter Summary ---
Author Organization [employer] Address [address] [facility] 7 [place] [address] Care Team Providers Care Admitted Attorneys Name Role Phone Handy Elias MD Primary Care Provider +1- [phone] Reason for Visit * Reason Onset Date Comments Med Refill 06/12/2022 Encounter Details Date Type Department Care Team (Late st Contact Info) Description 06/12/2022 Telephone [facility] MEDICINE [address] [place], [place] [phone] Handy Elias MD [address] [place], [place] [phone] Med Refill Social History Tobacco Use Types [...] Description 07/30/2024 4:00 PM EDT Office Visit [facility] [address] [place] [address] Handy Elias MD [address] [place] [address] 08/12/2024 2:15 PM EDT Telemedicine [facility] [address] [place] [address] Tessa Cox RN [address] [place], [place] [phone] documented as of this encounter Visit Diagnoses Not on filedocumented in this encounter Care Teams Admitted Attorneys Relationship Specialty Start Date End Date Handy Elias MD [address] [place] [address] PCP - General Internal Medicine 11/17/12 documented as of this encounter
--- OUTSIDE RECORDS SUMMARY | 2024-07-15 14:46 | XMS_ITS | Encounter Summary ---
Author Organization [employer] Address [address] [place] [address] 7 [place] [address] Care Team Providers Care Clay Molder Name Role Phone Handy Elias MD Primary Care Provider +1- [phone] Encounter Details Date Type Department Care Team (Late Contact Info) Description 08/29/2022 Orders Only [facility]S [address] [place], [place] [phone] Handy Elias MD [address] [place], [place] [phone] Social History Tobacco Use Types Packs/Day Years [...] Description 07/30/2024 4:00 PM EDT Office Visit [facility] [address] [place] [address] Handy Elias MD [address] [place], [place] [phone] 08/12/2024 2:15 PM EDT Telemedicine [facility] MED [facility] PEDS [address] [place], [place] [phone] Tessa Cox, MARITA 505 [place], [place] [phone] documented as of this encounter Visit Diagnoses Not on filedocumented in this encounter Care Teams Clay Molder Relationship Specialty Start Date End Date Handy Elias MD [address] [place] [address] [place] [address] PCP - General Internal Medicine 11/17/12 documented as of this encounter
--- OUTSIDE RECORDS SUMMARY | 2024-07-15 14:46 | XMS_ITS | Encounter Summary ---
Author Organization [employer] Address [address] [facility] 7 [place] [address] Care Team Providers Care Vice President Of Procurement Name Role Phone Handy Elias MD Primary Care Provider +1- [phone] Reason for Visit * Reason Onset Date Comments Med Refill 09/23/2023 Encounter Details Date Type Department Care Team ([facility] st Contact Info) Description 09/23/2023 Telephone [facility] MEDICINE [address] [place] [address] Handy Elias MD [address] [place], [place] [phone] Med Refill Social History Tobacco Use Types [...] immediate release tablet To be sent to: [facility]/pharmacy #[id number] - [place] - [address] [place] [address] AT [address], [facility] [facility] documented in this encounter Plan of Treatment Upcoming Encounters Date Type Department Care Team (Late st Contact Info) Description 07/30/2024 4:00 PM EDT Office Visit [facility] MED & PEDS [address] [place] [address] Handy Elias MD 505 [place] [address] 08/12/2024 2:15 PM EDT Telemedicine [facility] [address] [place] [address] Tessa Cox RN 505 [place] [address] documented as of this encounter Visit Diagnoses Not on filedocumented in this encounter Care Teams Vice President Of Procurement Relationship Specialty Start Date End Date Handy Elias MD 505 [place] [address] PCP - General Internal Medicine 11/17/12 documented as of this encounter
--- OUTSIDE RECORDS SUMMARY | 2024-07-15 14:46 | XMS_ITS | Encounter Summary ---
Author Organization [employer] Address [address] [place] [address] 7 [place] [address] Care Team Providers Care Paper Cutter Operator Name Role Phone Handy Elias MD Primary Care Provider +1- [phone] Reason for Visit * Reason Onset Date Comments Med Refill 07/30/2023 Encounter Details Date Type Department Care Team (Late st Contact Info) Description 07/30/2023 Telephone [facility] MEDICINE [address] [place], [place] [phone] Handy Elias MD 505 [place], [place] [phone] Med Refill Social History Tobacco Use Types [...] release tablet To be sent to: [facility]/pharmacy #[id number] - [place] - [address] [facility] AT [address], [place] [address] documented in this encounter Plan of Treatment Upcoming Encounters Date Type Department Care Team (Late st Contact Info) Description 07/30/2024 4:00 PM EDT [facility] 505 [place] [address] Handy Elias MD 505 [place] [address] 08/12/2024 2:15 PM EDT Telemedicine [facility] 505 [place] [address] Tessa Cox RN 505 [place], [place] [phone] documented as of this encounter Visit Diagnoses Not on filedocumented in this encounter Care Teams Paper Cutter Operator Relationship Specialty Start Date End Date Handy Elias MD 505 [place] [address] PCP - General Internal Medicine 11/17/12 documented as of this encounter
--- OUTSIDE RECORDS SUMMARY | 2024-07-15 14:46 | XMS_ITS | Encounter Summary ---
Author Organization [employer] Address [address] [place] [address] 7 [place] [address] Care Team Providers Care Real Estate Loan Processor Name Role Phone Handy Elias MD Primary Care Provider +1 [phone] Reason for Visit * Reason Comments Med Refill Encounter Details Date Type Department Care Team ([facility] st Contact Info) Description 07/13/2024 Refill [facility] MED & PEDS 505 [place], [place] [phone] Handy Elias MD 505 [place], [place] [phone] Gastroesophageal reflux disease without esophagitis Social History Tobacco Use Types Packs/Day Years [...] Upcoming Encounters Date Type Department Care Team ([facility] st Contact Info) Description 07/30/2024 4:00 PM EDT Office Visit [facility] MED & PEDS 505 [place] [address] Handy Elias MD 505 [place] [address] 08/12/2024 2:15 PM EDT Telemedicine [facility] MED & PEDS 505 [place] [address] Tessa Cox, MARITA 505 [place] [address] documented as of this encounter Visit Diagnoses Diagnosis Gastroesophageal reflux disease without esophagitis Esophageal reflux documented in this encounter Additional Health Concerns Assessment Noted Time PHQ-9 Depression Total Score: 2 05/09/19 25 2:07 PM EDT documented as of this encounter Care Teams Real Estate Loan Processor Relationship Specialty Start Date End Date Handy Elias MD 505 [place] [address] PCP - General Internal Medicine 11/17/12 documented as of this encounter
--- OUTSIDE RECORDS SUMMARY | 2024-07-15 14:46 | XMS_ITS | Encounter Summary ---
Author Organization [employer] Address [address] [place] [address] 7 [place] [address] Care Team Providers Care Pet Food Deboner Name Role Phone Handy Elias MD Primary Care Provider +1- [phone] Encounter Details Date Type Department Care Team ([facility] Contact Info) Description 03/14/2023 Orders Only [facility] MED & PEDS [address] [place], [place] [phone] Handy Elias MD 505 [place], [place] [phone] Chronic pain syndrome; Primary insomnia Social History [...] [facility] [address] [place] [address] Handy Elias MD 505 [place] [address] 08/12/2024 2:15 PM EDT Telemedicine [facility] MED & PEDS 505 [place] [address] Tessa Cox, MARITA 505 [place] [address] documented as of this encounter Visit Diagnoses Diagnosis Chronic pain syndrome Primary insomnia Persistent disorder of initiating or maintaining sleep documented in this encounter Care Teams Pet Food Deboner Relationship Specialty Start Date End Date Handy Elias MD 505 [place] [address] PCP - General Internal Medicine 11/17/12 documented as of this encounter
--- OUTSIDE RECORDS SUMMARY | 2024-07-15 14:46 | XMS_ITS | Encounter Summary ---
Author Organization [employer] Address [address] [facility] 7 [place] [address] Care Team Providers Care Airline Lounge Receptionist Name Role Phone Handy Elias MD Primary Care Provider +1- [phone] Reason for Visit * Reason Onset Date Comments Reschedule 04/01/2023 Encounter Details Date Type Department Care Team (Late st Contact Info) Description 04/01/[address] [facility] MEDICINE 230 [place], [place] [phone] Handy Elias MD 505 [place] [address] Reschedule Social History Tobacco Use Types Packs/Day [...] Emilee Mauricio - 04/01/2023 11:04 AM EST Tc from [place] requesting r/s 04/04/2023 appt, card writer hand attempted to schedule no availability. documented in this encounter Plan of Treatment Upcoming Encounters Date Type Department Care Team (Late st Contact Info) Description 07/30/2024 4:00 PM EDT Office Visit [facility] MED & PEDS 505 [place] [address] Handy Elias MD 505 [place] [address] 08/12/2024 2:15 PM EDT Telemedicine [facility] MED & PEDS 505 [place] [address] Tessa Cox RN 505 [place] [address] documented as of this encounter Visit Diagnoses Not on filedocumented in this encounter Care Teams Airline Lounge Receptionist Relationship Specialty Start Date End Date Handy Elias MD 505 [place] [address] PCP - General Internal Medicine 11/17/12 documented as of this encounter
--- OUTSIDE RECORDS SUMMARY | 2024-07-15 14:46 | XMS_ITS | Encounter Summary ---
Author Organization [employer] Address [address] [facility] [address] 7t [place] [address] Care Team Providers Care Media Reporter Name Role Phone Handy Elias MD Primary Care Provider [phone] Encounter Details Date Type Department Care Team (Late st Contact Info) Description 05/11/2024 Orders Only [facility] CH[facility] MED & PEDS [address] [place], [place] [phone] Provider, MD Melanie Social History Tobacco Use Types Packs/Day Years [...] the past 12 months, has t he Brit[employer], [employer], oil or water [employer] threatened to shut off services in your [...] 07/30/2024 4:00 PM EDT Office Visit [facility] MED & PEDS 505 [place] [address] Handy Elias MD 505 [place] [address] 08/12/2024 2:15 PM EDT Telemedicine [facility] MED & PEDS 505 [place] [address] Tessa Cox RN 505 [place] [address] documented as of this encounter Procedures Procedure Name Priority Date/Time Associated Diagnosis Comments SURGICAL PATHOLOGY Routine 10/16/2021 8:57 AM EDT documented in this encounter Results * Surgical Pathology (10/16/2021 8:57 AM EDT) Historical Provider LAB PATHOLOGY ORDERABLES Final Result documented in this encounter Visit Diagnoses Not on filedocumented in this encounter Additional Health Concerns Assessment Noted Time PHQ-9 Depression Total Score: 2 05/09/19 25 2:07 PM EDT documented as of this encounter Care Teams Media Reporter Relationship Specialty Start Date End Date Handy Elias MD 505 [place] [address] PCP - General Internal Medicine 11/17/12 documented as of this encounter
--- OUTSIDE RECORDS SUMMARY | 2024-07-15 14:46 | XMS_ITS | Encounter Summary ---
Author Organization [employer] Address [address] [facility] 7 [place] [address] Care Team Providers Care Grassland Conservationist Name Role Phone Handy Elias MD Primary Care Provider +1- [phone] Reason for Visit * Reason Onset Date Comments Med Refill 09/18/2023 Encounter Details Date Type Department Care Team ([facility] st Contact Info) Description 09/18/2023 Telephone [facility] MEDICINE [address] [place] [address] Handy Elias MD [address] [place], [place] [phone] Med Refill Social History Tobacco Use Types [...] refill : Zolpidem To be sent to: [facility]/pharmacy #[id number] - [place] - [address] [facility] [address], [place] [address] documented in this encounter Plan of Treatment Upcoming Encounters Date Type Department Care Team (Late st Contact Info) Description 07/30/2024 4:00 PM EDT Office Visit [facility] MED & PEDS 505 [place] [address] Handy Elias MD 505 [place] [address] 08/12/2024 2:15 PM EDT Telemedicine [facility] MED & PEDS 505 [place] [address] Tessa Cox, MARITA 505 [place] [address] documented as of this encounter Visit Diagnoses Not on filedocumented in this encounter Care Teams Grassland Conservationist Relationship Specialty Start Date End Date Handy Elias MD 505 [place] [address] PCP - General Internal Medicine 11/17/12 documented as of this encounter
--- OUTSIDE RECORDS SUMMARY | 2024-07-15 14:46 | XMS_ITS | Encounter Summary ---
Author Organization [employer] Address [address] [place] [address] 7 [place] [address] Care Team Providers Care Wharf Operator Name Role Phone Handy Elias MD Primary Care Provider +1- [phone] Encounter Details Date Type Department Care Team ([facility] Contact Info) Description 12/26/2022 Abstract [facility] MEDICINE 230 [place], [place] [phone] Handy Elias MD 505 [place], [place] [phone] Social History Tobacco Use Types Packs/Day Years [...] Encounters Date Type Department Care Team ([facility] Contact Info) Description 07/30/2024 4:00 PM EDT Office Visit [facility] MED & PEDS 505 [place] [address] Handy Elias MD 505 [place], [place] [phone] 08/12/2024 2:15 PM EDT Telemedicine [facility] MED & PEDS 505 [place], [place] [phone] Tessa Cox, RN 505 [place] [address] documented as of this encounter Visit Diagnoses Not on filedocumented in this encounter Care Teams Wharf Operator Relationship Specialty Start Date End Date Handy Elias MD 505 [place] [address] PCP - General Internal Medicine 11/17/12 documented as of this encounter
--- OUTSIDE RECORDS SUMMARY | 2024-07-15 14:46 | XMS_ITS | Encounter Summary ---
Author Organization [employer] Address [address] [facility] 7 [place] [address] Care Team Providers Care Cabinetmaker Helper Name Role Phone Handy Elias MD Primary Care Provider +1- [phone] Reason for Visit * Reason Onset Date Comments Call Back Request 05/14/2023 Encounter Details Date Type Department Care Team (Late st Contact Info) Description 05/14/2023 Telephone [facility] MEDICINE 230 [place], [place] [phone] Handy Elias MD 505 [place] [address] Call Back Request Social History Tobacco Use [...] 07/30/2024 4:00 PM EDT Office Visit [facility] MED & PEDS 505 [place] [address] Handy Elias MD 505 [place] [address] 08/12/2024 2:15 PM EDT Telemedicine [facility] MED & PEDS 505 [place] [address] Tessa Cox RN 505 [place] [address] documented as of this encounter Visit Diagnoses Not on filedocumented in this encounter Care Teams Cabinetmaker Helper Relationship Specialty Start Date End Date Handy Elias MD 505 [place] [address] PCP - General Internal Medicine 11/17/12 documented as of this encounter
--- OUTSIDE RECORDS SUMMARY | 2024-07-15 14:46 | XMS_ITS | Encounter Summary ---
Author Organization [employer] Address [address] [facility] 7 [place] [address] Care Team Providers Care Manager Water Name Role Phone Handy Elias MD Primary Care Provider [phone] Encounter Details Date Type Department Care Team ([facility] st Contact Info) Description 11/15/2023 Orders Only [facility] CH[facility] MED & PEDS 505 [place], [place] [phone] Handy Elias MD 505 [place], [place] [phone] Social History Tobacco Use Types Packs/Day Years [...] [facility] 505 [place] [address] Handy Elias MD 505 [place] [address] 08/12/2024 2:15 PM EDT Telemedicine [facility] MED & PEDS 505 [place] [address] Tessa Cox RN 505 [place] [address] documented as of this encounter Visit Diagnoses Not on filedocumented in this encounter Care Teams Manager Water Relationship Specialty Start Date End Date Handy Elias MD 505 [place] [address] PCP - General Internal Medicine 11/17/12 documented as of this encounter
--- OUTSIDE RECORDS SUMMARY | 2024-07-15 14:46 | XMS_ITS | Encounter Summary ---
Author Organization [employer] Address [address] [place] [address] 7 [place] [address] Care Team Providers Care Land Leasing Examiner Name Role Phone Handy Elias MD Primary Care Provider +1- [phone] Encounter Details Date Type Department Care Team (Late Contact Info) Description 10/10/2022 Orders Only [facility] CHC MED & PEDS 505 [place], [place] [phone] Handy Elias MD 505 [place], [place] [phone] Social History Tobacco Use Types Packs/Day Years [...] Description 07/30/2024 4:00 PM EDT Office Visit [facility] CHC MED & PEDS 505 [place] [address] Handy Elias MD 505 [place] [address] 08/12/2024 2:15 PM EDT Telemedicine [facility] MED & PEDS 505 [place], [place] [phone] Tessa Cox [place] 505 [place] [address] documented as of this encounter Visit Diagnoses Not on filedocumented in this encounter Care Teams Land Leasing Examiner Relationship Specialty Start Date End Date Handy Elias MD 505 [place] [address] PCP - General Internal Medicine 11/17/12 documented as of this encounter
--- OUTSIDE RECORDS SUMMARY | 2024-07-15 14:46 | XMS_ITS | Encounter Summary ---
Author Organization [facility] Address [address] [place] [address] Phone Care Team Providers Care Bulk Picker Name Role Phone Handy Elias MD Primary Care Provider [phone] Encounter Details Date Type Department Care Team (Late st Contact Info) Description 2022 Telephone [facility] [address] [place] [address] Christie Leone Social History Tobacco [...] on filedocumented in this encounter Care Teams Bulk Picker Relationship Specialty Start Date End Date Handy Elias MD PCP - General Internal Medicine 10/19/20 documented as of this encounter
--- OUTSIDE RECORDS SUMMARY | 2024-07-15 14:46 | XMS_ITS | Encounter Summary ---
Author Organization [employer] Address [address] [place] [address] 7 [place] [address] Care Team Providers Care Physical Plant Manager Name Role Phone Handy Elias MD Primary Care Provider +1- [phone] Encounter Details Date Type Department Care Team (Late Contact Info) Description 02/02/2022 Orders Only [facility] MEDICINE 230 [place], [place] [phone] Handy Elias MD 505 [place], [place] [phone] Cold intolerance of hand (Primary Dx); Primary [...] Description 07/30/2024 4:00 PM EDT Office Visit [facility] CHC MED & PEDS 505 [place], [place] [phone] Handy Elias MD 505 [place], [place] [phone] 08/12/2024 2:15 PM EDT Telemedicine [facility] CH[facility] MED & PEDS 505 [place] [address] Tessa Cox, RN 505 [place] [address] documented as of this encounter Procedures Procedure Name Priority Date/Time Associated Diagnosis Comments TSH W/REFLEX TO FT4 Routine 03/01/2022 1 1:16 AM EST Cold intolerance of hand documented in this encounter Results * TSH W/Reflex to FT4 (03/01/2022 11:16 AM EST) TSH w/Reflex to FT4 2.35 0.40 - 4.50 mIU/L [place] [facility] 03/01/2022 11:1 6 AM EST 03/01/2022 11:16 AM EST Handy Elias MD LAB BLOOD ORDERABLES Final Result [facility] [address] [place] [address], [place] [address] [place] [place] [facility] [address] [facility], ([address]) [place] [address] documented in this encounter Visit Diagnoses Diagnosis Cold intolerance of hand- Primary Primary insomnia Persistent disorder of initiating or maintaining sleep documented in this encounter Care Teams Physical Plant Manager Relationship Specialty Start Date End Date Handy Elias MD 505 [place] [address] PCP - General Internal Medicine 11/17/12 documented as of this encounter
--- OUTSIDE RECORDS SUMMARY | 2024-07-15 14:46 | XMS_ITS | Encounter Summary ---
Author Organization [employer] Address [address] [facility] 7 [place] [address] Care Team Providers Care Fusing Machine Tender Name Role Phone Handy Elias MD Primary Care Provider +1- [phone] Reason for Visit * Reason Onset Date Comments Med Refill 06/02/2024 Encounter Details Date Type Department Care Team (Late st Contact Info) Description 06/02/2024 Telephone [facility] MEDICINE 230 [place], [place] [phone] Handy Elias MD 505 [place], [place] [phone] Med Refill Social History Tobacco Use Types [...] * Telephone Encounter - Tiff Mathis - 06/02/2024 11:32 AM EDT TC from pt requesting medication refill. Medications needing refill : oxyCODONE (Roxicodone) 5 MG immediate release tablet To be sent to: [facility]/pharmacy #[id number] - [place] - [address] [place] [address] AT [address], [place] [address] documented in this encounter Plan of Treatment Upcoming Encounters Date Type Department Care Team (Late st Contact Info) Description 07/30/2024 4:00 PM EDT Office Visit [facility] MED & PEDS 505 [place] [address] Handy Elias MD 505 [place] [address] 08/12/2024 2:15 PM EDT Telemedicine [facility] MED & PEDS 505 [place] [address] Tessa Cox RN 505 [place], [place] [phone] documented as of this encounter Visit Diagnoses Not on filedocumented in this encounter Additional Health Concerns Assessment Noted Time PHQ-9 Depression Total Score: 2 05/09/19 25 2:07 PM EDT documented as of this encounter Care Teams Fusing Machine Tender Relationship Specialty Start Date End Date Handy Elias MD [address] [place] [address] PCP - General Internal Medicine 11/17/12 documented as of this encounter
--- OUTSIDE RECORDS SUMMARY | 2024-07-15 14:46 | XMS_ITS | Encounter Summary ---
Author Organization [employer] Address [address] [place] [address] Care Team Providers Care Communications Billing Analyst Name Role Phone Handy Elias MD Primary Care Provider +1 [phone] Reason for Referral * Consultation (Routine) - Authorized Specialty Diagnoses / Procedures Referred By Contac t Referred To Contact Pain Medicine Diagnoses Chronic midline low back pain, unspecified whether sciatica present Handy Elias MD 505 [place] [address] Phone: tel: fax: Earnest Gardner MD [address] [place] [address] [address] [place] [address] Phone: tel: fax: Referral ID Status Reason Start Date Expiration Date Visits Requested Visits Authorized [id number] Authorized Specialty Services Required 06/23/2024 06/23/2025 1 1 Encounter Details Date Type Department Care Team (Late st Contact Info) Description 06/23/[address] [facility] MED & PEDS 505 [place], [place] [phone] Handy Elias MD 505 [place], [place] [phone] Chronic midline low back pain, unspecified whether sciatica present (Primary Dx) Social History Tobacco Use Types [...] Upcoming Encounters Date Type Department Care Team ([facility] st Contact Info) Description 07/30/2024 4:00 PM EDT Office Visit [facility] MED & PEDS 505 [place] [address] Handy Elias MD 505 [place] [address] 08/12/2024 2:15 PM EDT Telemedicine [facility] MED & PEDS 505 [place] [address] Tessa Cox, MARITA 505 [place] [address] Scheduled Referrals Name Type Priority Associated Diagnoses Orde r Schedule Referral to Pain Medicine Outpatient Referral Routine Chronic midline low back pain, unspecified whether sciatica present Expected: 06/23/2024 (Approximate), Expires: 06/23/2025 documented as of this encounter Visit Diagnoses Diagnosis Chronic midline low back pain, unspecified whether sciatica present- Primary documented in this encounter Additional Health Concerns Assessment Noted Time PHQ-9 Depression Total Score: 2 05/09/19 25 2:07 PM EDT documented as of this encounter Care Teams Communications Billing Analyst Relationship Specialty Start Date End Date Handy Elias MD 505 [place] [address] PCP - General Internal Medicine 11/17/12 documented as of this encounter
--- OUTSIDE RECORDS SUMMARY | 2024-07-15 14:46 | XMS_ITS | Encounter Summary ---
Author Organization [employer] Address [address] [place] [address] [place] [address] Care Team Providers Care Vocational Training Instructor Name Role Phone Handy Elias MD Primary Care Provider +1- [phone] Reason for Visit * Reason Onset Date Comments Med Refill 02/13/2023 Encounter Details Date Type Department Care Team (Late st Contact Info) Description 02/13/2023 Telephone [facility] MEDICINE 230 [place], [place] [phone] Handy Elias MD 505 [place], [place] [phone] Med Refill Social History Tobacco Use Types [...] oxyCODONE (Roxicodone) 5 MG immediate release tablet [facility]/pharmacy #[id number] - [place] - [address] [place] [address] [address], [address] [facility] [address] documented in this encounter Plan of Treatment Upcoming Encounters Date Type Department Care Team (Late st Contact Info) Description 07/30/2024 4:00 PM EDT Office Visit [facility] MED & PEDS 505 [place] [address] Handy Elias MD 505 [place] [address] 08/12/2024 2:15 PM EDT Telemedicine [facility] MED & PEDS 505 [place] [address] Tessa Cox, MARITA 505 [place] [address] documented as of this encounter Visit Diagnoses Not on filedocumented in this encounter Care Teams Vocational Training Instructor Relationship Specialty Start Date End Date Handy Elias MD 505 [place] [address] PCP - General Internal Medicine 11/17/12 documented as of this encounter
--- OUTSIDE RECORDS SUMMARY | 2024-07-15 14:46 | XMS_ITS | Encounter Summary ---
Author Organization [employer] Address [address] [facility] 7 [place] [address] Care Team Providers Care Adjunct Faculty Name Role Phone Handy Elias MD Primary Care Provider +1- [phone] Reason for Visit * Reason Onset Date Comments call back requested 10/18/2023 Encounter Details Date Type Department Care Team ([facility] st Contact Info) Description 10/18/2023 Telephone [facility] MED[facility]INE [address] [place] [address] Handy Elias MD [address] [place], [place] [phone] call back requested Social History Tobacco Use [...] spouse states just missed a call from COLLAR POINTER nurse Tessa . documented in this encounter Plan of Treatment Upcoming Encounters Date Type Department Care Team (Late st Contact Info) Description 07/30/2024 4:00 PM EDT Office Visit [facility] MED & PEDS [address] [place] [address] Handy Elias MD [address] [place] [address] 08/12/2024 2:15 PM EDT Telemedicine [facility] [address] [place] [address] Tessa Cox RN 505 [place] [address] documented as of this encounter Visit Diagnoses Not on filedocumented in this encounter Care Teams Adjunct Faculty Relationship Specialty Start Date End Date Handy Elias MD [address] [place] [address] PCP - General Internal Medicine 11/17/12 documented as of this encounter
--- OUTSIDE RECORDS SUMMARY | 2024-07-15 14:46 | XMS_ITS | Encounter Summary ---
Author Organization [employer] Address [address] [place] [address] 7 [place] [address] Care Team Providers Care Airfield Engineer Officer Name Role Phone Handy Elias MD Primary Care Provider +1- [phone] Encounter Details Date Type Department Care Team (Late st Contact Info) Description 05/14/2023 Orders Only [facility] MED & PEDS [address] [place], [place] [phone] Handy Elias MD [address] [place], [place] [phone] Mood disorder (CMS/HCC) (Primary Dx) Social History [...] Description 07/30/2024 4:00 PM EDT Office Visit [facility] MED & PEDS [address] [place] [address] Handy Elias MD [address] [place] [address] 08/12/2024 2:15 PM EDT Telemedicine [facility] MED & PEDS [address] [place] [address] Tessa Cox RN [address] [place] [address] documented as of this encounter Visit Diagnoses Diagnosis Mood disorder (CMS/HCC)- Primary Unspecified episodic mood disorder documented in this encounter Care Teams Airfield Engineer Officer Relationship Specialty Start Date End Date Handy Elias MD [address] [place] [address] PCP - General Internal Medicine 11/17/12 documented as of this encounter
--- OUTSIDE RECORDS SUMMARY | 2024-07-15 14:46 | XMS_ITS | Encounter Summary ---
Author Organization [employer] Address [address] [place] [address] 7 [place] [address] Care Team Providers Care Telecasting Technician Name Role Phone Handy Elias MD Primary Care Provider +1- [phone] Encounter Details Date Type Department Care Team (Late st Contact Info) Description 2022 Abstract [facility] MEDICINE [address] [place], [place] [phone] ProviderMelanie MD Social History Tobacco Use Types [...] Description 07/30/2024 4:00 PM EDT Office Visit [facility] MED & PEDS [address] [place], [place] [phone] Handy Elias MD 505 [place] [address] 08/12/2024 2:15 PM EDT Telemedicine [facility] MED & PEDS [address] [place] [address] Tessa Cox, MARIAT [address] [place] [address] documented as of this encounter Visit Diagnoses Not on filedocumented in this encounter Care Teams Telecasting Technician Relationship Specialty Start Date End Date Handy Elias MD 505 [place] [address] PCP - General Internal Medicine 11/17/12 documented as of this encounter
--- OUTSIDE RECORDS SUMMARY | 2024-07-15 14:46 | XMS_ITS | Encounter Summary ---
Author Organization [employer] Address [address] [facility] 7 [place] [address] Care Team Providers Care Industry Analyst Name Role Phone Handy Elias MD Primary Care Provider +1- [phone] Reason for Visit * Reason Onset Date Comments Med Refill 11/15/2023 Encounter Details Date Type Department Care Team ([facility] st Contact Info) Description 11/15/2023 Telephone [facility] MEDICINE [address] [place] [address] Handy Elias MD [address] [place], [place] [phone] Med Refill Social History Tobacco Use Types [...] 10 MG tablet To be sent to: [facility]/pharmacy #[id number] - [place] - [address] [place] [address] AT [address] [place] [address] documented in this encounter Plan of Treatment Upcoming Encounters Date Type Department Care Team (Late st Contact Info) Description 07/30/2024 4:00 PM EDT Office Visit [facility] MED & PEDS [address] [place] [address] Handy Elias MD 505 [place] [address] 08/12/2024 2:15 PM EDT Telemedicine [facility] MED & PEDS [address] [place] [address] Tessa Cox, MARITA 505 [place] [address] documented as of this encounter Visit Diagnoses Not on filedocumented in this encounter Care Teams Industry Analyst Relationship Specialty Start Date End Date Handy Elias MD [address] [place] [address] PCP - General Internal Medicine 11/17/12 documented as of this encounter
--- OUTSIDE RECORDS SUMMARY | 2024-07-15 14:46 | XMS_ITS | Encounter Summary ---
Author Organization [employer] Address [address] [place] [address] [place] [address] Care Team Providers Care Coal Chute Worker Name Role Phone Handy Elias MD Primary Care Provider +1- [phone] Encounter Details Date Type Department Care Team (Late st Contact Info) Description 07/16/2022 Orders Only [facility] MED & PEDS [address] [place] [address] Nataliia Santos LPN Social History Tobacco Use [...] 07/30/2024 4:00 PM EDT Office Visit [facility] MED & PEDS [address] [place] [address] Handy Elias MD 505 [place] [address] 08/12/2024 2:15 PM EDT Telemedicine [facility] MED & PEDS [address] [place] [address] Tessa Cox, MARITA 505 [place] [address] documented as of this encounter Visit Diagnoses Not on filedocumented in this encounter Care Teams Coal Chute Worker Relationship Specialty Start Date End Date Handy Elias MD [address] [place] [address] PCP - General Internal Medicine 11/17/12 documented as of this encounter
--- OUTSIDE RECORDS SUMMARY | 2024-07-15 14:46 | XMS_ITS | Encounter Summary ---
Author Organization [employer] Address [address] [facility] 7 [place] [address] Care Team Providers Care Dietary Cook Name Role Phone Handy Elias MD Primary Care Provider +1- [phone] Reason for Visit * Reason Onset Date Comments Med Refill 01/14/2024 Encounter Details Date Type Department Care Team ([facility] st Contact Info) Description 01/14/2024 Telephone [facility] MEDICINE [address] [place] [address] Handy Elias MD [address] [place], [place] [phone] Med Refill Social History Tobacco Use Types [...] immediate release tablet To be sent to: [facility]/pharmacy #[id number] - [place] - [address] [place] [address] AT [address] [facility] documented in this encounter Plan of Treatment Upcoming Encounters Date Type Department Care Team (Late st Contact Info) Description 07/30/2024 4:00 PM EDT Office Visit [facility] MED & PEDS 505 [place] [address] Handy Elias MD [address] [place] [address] 08/12/2024 2:15 PM EDT Telemedicine [facility] MED [facility] PEDS [address] [place] [address] Tessa Cox, MARITA 505 [place] [address] documented as of this encounter Visit Diagnoses Not on filedocumented in this encounter Care Teams Dietary Cook Relationship Specialty Start Date End Date Handy Elias MD [address] [place] [address] PCP - General Internal Medicine 11/17/12 documented as of this encounter
[2024-07-15 18:30] LABS: Cholesterol 252 mg/dL (<200); HDL Cholesterol 41 mg/dL (>40); LDL Cholesterol Calculated 189 mg/dL (<100); Triglycerides 112 mg/dL (<150)
== END 2024-07-15 14:37 | disposition home or self-care (01) ==
LOC: HO.HKASLDS 14:36
PROVIDERS: Visit Provider Internal Medicine Hypertension Specialist
DX: I10 Essential (primary) hypertension (principal)
CPT/HCPCS: 36415; 80061

== ENCOUNTER 2024-07-30 13:30 | Outpatient (AMB) | payer MEDICARE, SELFPAY ==
--- NOTE | 2024-07-30 13:39 | HO.NEPHOV_ITS ---
Vital Signs 07/30/24 13:42 Height 5 ft 11 in Weight 274 lb BMI 38.2 BP 172/98 H Blood Pressure Location Rt brachial Position Sitting Pulse 69 Pulse Source Pulse Oximeter Pulse Oximetry (%) 97 Oxygen Delivery Method Room Air Intake Visit Reasons: 3m follow up/ Conf Filler Machine Operator Required: No Accompanied by: Spouse Allergies Seasonal Allergies Allergy (Verified 04/22/24 11:33) Runny Nose Medication List - Last Reconciled 07/30/24 by Silver Marie MD acetaminophen ER 1 tab PO Q8H PRN albuterol sulfate 2.5 mg (3 mL) inhalation Q4H PRN 90 days alendronate 70 mg PO QWEEK amlodipine 10 mg PO DAILY budesonide 0.5 mg (2 mL) inhalation DAILY 30 days cholecalciferol (vitamin D3) 50 mcg PO DAILY codeine-guaifenesin 10-100 mg/5 mL 10 mL PO Q6H PRN 10 days cyanocobalamin (vitamin B-12) mcg IM cyclobenzaprine 1 tab PO BID PRN desvenlafaxine succinate ER (Pristiq) 25 mg PO DAILY docusate sodium 1 cap PO BID PRN epinephrine (EpiPen 2-Oc) 0.3 mg (0.3 mL) IM Q10M PRN 30 days nebulizers As directed omeprazole 20 mg PO DAILY PRN ondansetron HCl 4 mg PO DAILY PRN oxycodone 1 tab PO Q4-6H PRN propranolol 10 mg PO DAILY PRN roflumilast (Daliresp) 500 mcg PO DAILY 90 days sildenafil 100 mg PO DAILY PRN sodium chloride 3.5% 4 mL inhalation BID 30 days sodium chloride 3% 4 mL inhalation BID 30 days Ventolin HFA 90 mcg/actuation (albuterol sulfate) 2 puffs inhalation Q6H PRN 30 days NS zolpidem 10 mg PO BEDTIME PRN HPI Comments Details: eHnri is a middle-aged man with history of obesity hypertension and mild CKD. He is complaining of generalized weakness in the muscles. He is undergoing physical therapy without much improvement. He has been receiving steroid injections for the bursitis. He also has ecchymosis in both upper extremities. Seen by Hematology and Oncology in the past and no significant pathology was documented. 04/22/24 After stopping Rosuvastatin, muscle weakness has significantly improved. He has gained about 20 lbs since last visit BP has increased ! 07/30/24 64-year-old male presenting with challenges in managing hypertension and hyperlipidemia. He has experienced significant weight fluctuations, with a notable reduction from 320 to 274 pounds, yet his blood pressure remains elevated at approximately 170 mmHg. Despite a medical recommendation to increase his amlodipine dose to 10 mg, non- compliance with the medication regimen because of reluctance and inconsistent usage persists. In terms of hyperlipidemia management, the patient previously tolerated fluvastatin 20 mg well, with less muscle weakness compared to other statins. Despite effective cholesterol management on fluvastatin, an insurance formulary issue is preventing its continuation, as noted with his recent reading of 252 mg/dL in June when off the medication. [facility] Medical History (Updated 12/20/23 @ 13:06 by Stephen Bahena MD) Bronchitis Weakness Chest pain Atelectasis Tobacco dependence syndrome (~01/13/22) Senile hyperkeratosis (~02/21/18) Sciatica (~11/24/12) Osteoporosis (~09/20/17) Obstructive sleep apnea syndrome (~01/04/10) Low back pain (~07/14/12) Hypertension (~07/14/12) Erectile dysfunction (~11/24/12) Hypercholesterolemia (~07/14/12) Chronic kidney disease, stage 3 (~09/22/17) Chronic pain syndrome (~11/20/16) Chronic cough Chronic allergic rhinitis Hyperlipidemia JENN on CPAP Asthma-COPD overlap syndrome Dyspnea Cough Asthma Sinusitis Osteoarthritis of knees, bilateral Spondylosis of cervical joint without myelopathy Surgical History History of colonoscopy (~10/16/21) Family History Father Parkinson disease Mother Sister Obesity Hypertension Social History Household Members: Spouse Housing: House Patient Tobacco Use Status: Former Tobacco user Tobacco use type: Cigarette Cigarette Packs Per Day: 1 Years Smoked: 30 years service: No Current occupational status: unemployed Physical Exam Vital Signs: Last Vital Signs Pulse 69 07/30/24 13:42 BP 172/98 H 07/30/24 13:42 Pulse Ox 97 07/30/24 13:42 Oxygen Delivery Method Room Air 07/30/24 13:42 BMI result Body Mass Index 38.2 Const General: comfortable Nutritional Appearance: well nourished Orientation/consciousness: patient oriented x3 HEENT Head: No normal to inspection Mouth: moist mucous membranes Neck Neck: Yes supple and Yes no JVD Resp Auscultation: clear to auscultation bilaterally, no rales and rub present Cardio Jugular venous distension: no JVD Palpation: no palpable S3 and no palpable S4 Heart sounds: no rubs GI Palpation (GI): Soft to palpation and nontender Percussion: No Fluid wave present General: Yes no CVA tenderness Back/Spine/Pelvis Back: no CVA tenderness Skin General skin exam: ecchymosis Neuro General: patient oriented x3 Extrem General: Yes no pedal edema and No clubbing Results Reviewed Nephrology Results: Hgb 15.9 g/dl (14.0-18.0) 03/23/24 WBC 9.8 X10*3/uL (4.8-10.8) 03/23/24 Plt Count 293 X10*3/uL (160-400) 03/23/24 Sodium 140 mmol/L (135-145) 04/09/24 Potassium 4.1 mmol/L (3.3-5.1) 04/09/24 Chloride 108 mmol/L (96-108) 04/09/24 Carbon Dioxide 23 mmol/L (22-29) 04/09/24 BUN 18 mg/dL (9-16) H 04/09/24 Creatinine 1.26 mg/dL (0.5-1.4) 04/09/24 Calcium 9.6 mg/dL (8.4-10.2) 04/09/24 Assessment & Plan Assessment & Plan (1) Hypertension: Onset Date: ~07/14/12 Code(s): I10 - Essential (primary) hypertension Category: Medical Plan: Blood pressure is sub optmal. Stay on low-sodium diet Needs weight loss. Will Increase Amlodipine 10 mg daily May need to restart Labetolol if SBP is sub optimal . Plan The management plan for the patient's essential hypertension includes ensuring medication adherence to amlodipine, with a daily dose increased to 10 mg. This change aims to improve blood pressure control. The patient was advised to take the medication consistently at the same time each day, preferably in the evening if this suits his routine. Regarding hyperlipidemia, I will pursue prior authorization to restore access to fluvastatin 20 mg, given its prior efficacy and tolerability. Follow-up on the patient's blood pressure control is advised in six to eight weeks, with a possibility of adding labetalol to the regimen if necessary. Hydration was encouraged, and regular follow-up with his primary care physician was stressed. . Medications: New amlodipine 10 mg PO DAILY 90 tabs 0RF Refilled fluvastatin 20 mg PO DAILY 30 caps 3RF Discontinued amlodipine Discontinued Reason: Doctor's Order 7.5 mg (1.5 x 5 mg) PO DAILY 90 tabs 2RF Coding Level of Care Code Est Pt Level 4 (96351) Diagnoses Hypertension I10
[2024-07-30 13:42] VITALS: BP 172/98; PULSE 69; O2SAT 97; BMI 38.2
--- OUTSIDE RECORDS SUMMARY | 2024-07-30 16:00 | XMS_ITS | Encounter Summary ---
Author Organization [employer] Address [address] [place] [address] Care Team Providers Care Church Supervisor Name Role Phone Handy Elias MD Primary Care Provider [phone] Reason for Referral * Consultation (Routine) - Closed Specialty Diagnoses / Procedures Referred By Maurice weaver Referred To Contact Otolaryngology Diagnoses Other chronic sinusitis Handy Elias MD [address] [place] [address] Phone: tel: fax: [facility] [address] Phone: tel: fax: Referral ID Status Reason Start Date Expiration Date V isits Requested Visits Authorized [id number] Closed Specialty Services Required 03/25/2024 03/25/2025 1 1 Encounter Details Date Type Department Care Team ([facility] st Contact Info) Description 03/25/2024 Orders Only [facility] CH[facility] MED & PEDS [address] [place], [place] [phone] Handy Elias MD [address] [place], [place] [phone] Other chronic sinusitis (Primary Dx) Social History [...] Description 07/30/2024 4:00 PM EDT Office Visit [facility] MED & PEDS [address] [place] [address] Handy Elias MD [address] [place] [address] Arrived 08/12/2024 2:15 PM EDT Telemedicine [facility] MED & PEDS [address] [place] [address] Tessa Cox RN [address] [place] [address] Scheduled Referrals Name Type Priority Associated Diagnoses Orde r Schedule Referral to ENT Outpatient Referral Routine Other chronic sinusitis Expected: 03/25/2024 (Approximate), Expires: 03/25/2025 documented as of this encounter Visit Diagnoses Diagnosis Other chronic sinusitis- Primary documented in this encounter Care Teams Church Supervisor Relationship Specialty Start Date End Date Handy Elias MD [address] [place] [address] PCP - General Internal Medicine 11/17/12 documented as of this encounter
== END 2024-07-30 14:03 | disposition home or self-care (01) ==
LOC: HO.HKA 13:31
PROVIDERS: PCP Family Medicine; Visit Provider Internal Medicine Hypertension Specialist
DX: I10 Essential (primary) hypertension (principal)
CPT/HCPCS: 99214

== ENCOUNTER → 2024-07-30 13:30 | Outpatient (BNVA) | payer MEDICARE, SELFPAY | PROVIDERS: PCP Family Medicine; Visit Provider Internal Medicine Hypertension Specialist | DX: I10 Essential (primary) hypertension (principal) | CPT/HCPCS: 99212 ==

== ENCOUNTER 2024-09-04 14:03 | Outpatient (REF) | payer MEDICARE, SELFPAY ==
--- OUTSIDE RECORDS SUMMARY | 2023-03-21 09:30 | XMS_ITS | Continuity of Care Document ---
Author Organization [facility] Address [address] [place] [address] Phone Care Team Providers Care Assistant Casino Shift Manager Name Role Phone Adria LACKEY, RVT, LEÓN, Brian Unavailable U navailable Allergies, Adverse Reactions, Alerts Substance Reaction Status Criticality No Known Allergies Active No Inform ation Medications Medication Instructions Dosage Effective Dates (start - stop) Status Comments CYCLOBENZAPRINE HCL (unknown strength) Not Available - Active GABAPENTIN (unknown strength) Not Available - Active COLACE (unknown strength) Not Available - Active OXYCODONE HCL (unknown strength) Not Available - Active ADVAIR DISKUS (unknown strength) Not Available - Active OMEPRAZOLE (unknown strength) Not Available - Active ZYRTEC (unknown strength) Not Available - Active NORVASC (unknown strength) Not Available - Active CRESTOR (unknown strength) Not Available - Active CRESTOR (unknown strength) Not Available - Active ZETIA (unknown strength) Not Available - A ctive ZOLPIDEM TARTRATE (unknown strength) Not Available - Active VITAMIN D3 (unknown strength) Not Available - Active CALCIUM (unknown strength) Not Available - Active VITAMIN X09-ZZSRD ACID (unknown strength) Not Available - Active Procedures Procedure Date Office/Outpt E&M Established 15 Mins Feb Duplex Scan-extrem Veins; Uni/ 23 Phleb Veins - Extrem 20+ Endovenous Laser, 1st Vein Endovenous laser vein addon Office/Outpt E&M Established 25 Mins Nov Office/Outpt E&M Established 10 Mins - T elemedicine Office/Outpt E&M Established 15 Mins Mar Duplex Scan-extrem Veins; Comp Office/Oupt E&M New Pt 30 Mins Advance Directives Directive Yes / No Effective [...] Location Reason(s) For Visit Diagnoses Date Provider Providers Copied on Encounter Office/Outpt E&M Established 15 Mins [facility], [address] [place] [address] Dr Arshad 1000[facility] [address], [id number], [place] tel:[phone] CVR - [facility] Cramp and spasmRestless legs syndromeEssent ial (primary) hypertensionPa in in left lower legPain in left legLocalized edema 4 Adria LACKEY, RVT, LEÓN Torres. [address] [place] [address], [place], [place], [id number] , [place]. tel:[phone] Referring Provider: Handy Mckeon, [address] [place] [address], [address]. tel:[phone] [facility], [address] [place] [address] Dr Arshad [address] [address], [place], [id number], [place] tel:[phone] CVR - [facility] Encounter for follow-up examination after completed treatment for conditions other than malignant neVaricose veins of right lower extremity with pain 3 Asim LACKEY FACS RVT LEÓN [place]. [address] [place] [address], [place], [address], [place]. tel:[phone] Referring Provider: Handy Mckeon, [address], [address]. tel:[phone] [facility], [address] [place] [address] Dr Arshad [address], [place], [id number], [place] tel:[phone] CVR - [place] Varicose veins of right lower extremity with other complications Jan-0 3 Doreen De Paz . [address] [facility], [place] [address], [place], [place], [id number] , [place]. tel:[phone] Referring Provider: Handy Mckeon, [address], [address]. tel:[phone] [facility], [address] [place] [address] Dr Arshad [address] [address], [id number], [place] tel:[phone] CVR [place] Varicose veins of right lower extremity with other complications 3 Asim LACKEY FACS Ralf Del Cid. [address] [place] [address], [place], [address], [place]. [phone] Referring Provider: Handy Mckoen, [address] [place] [address], [address]. tel:[phone] Office/Outpt E&M Established 25 Mins [facility], [address] [place] [address] Dr Arshad [address] [address], [id number], [place] tel:[phone] CVR - [place] Chronic venous hypertension (idiopathic) with other complications of bilateral lower extremity Nov- 3 Asim LACKEY FACS Ralf [facility]. [address] [place] [address], [place], [address], [place]. tel:[phone] Referring Provider: Handy Mckeon, [address], [address]. tel:[phone] Office/Outpt E&M Established 10 Mins - [facility], [address] [place] [address] Dr Arshad [address] [address], [id number], [place] tel:[phone] CVR [place] Venous insufficiency (chronic) (peripheral) Apr-2 6-202 3 Asim LACKEY FACS T [facility]. [facility], [place] [address], [place], [address], [place]. tel:[phone] Referring Provider: Handy Mckeon, [address] [place] [address], [address]. tel:[phone] Office/Outpt E&M Established 15 Mins [facility], [address] [place] [address] [address], [place], [id number], [place] [phone] CVR [place] Venous insufficiency (chronic) (peripheral) [address] [facility]. [address] [place] [address], [place], [address], [place]. [phone] Referring Provider: Handy Mckeon, [address] [place] [address], [address]. tel:[phone] [facility], [address] [place] [address] Dr Arshad 1000[address], [place], [id number], [place] tel:[phone] CVR [place] Venous insufficiency (chronic) (peripheral) 3 Asim LACKEY [facility]. [address] [place] [address], [place] [address], [place], [address], [place]. [phone] Referring Provider: Blanka Dailey MD FACS [facility], [address] [place] [address], [place], [address]. tel:[phone] Office/Oupt E&M New Pt 30 Mins [facility], [address] [place] [address] Dr Arshad 1000[address] [address], [id number], [place] tel:[phone] CVR - [place] Venous insufficiency (chronic) (peripheral)Lo calized edemaRestless legs syndromeEssent ial (primary) hypertensionPr uritus, unspecifiedFla il joint, unspecified jointPain in right legPain in left legPain in right lower legPain in left lower legCramp and spasm 3 Asim LACKEY FACS RVT RPTEREZA Del Cid. [address] [facility], [address], [facility] [place], [address], [place]. tel:[phone] Referring Provider: Blanka Dailey MD FACS RVT [facility], [address] [facility] [address], [place], [address]. tel:[phone] Family History Family Member Type Diagnosis Age At Onset No Information Payers Payer name Insurance type Covered alliance party ID Authoriza tion(s) Medicare BIANKA MB [id number] BCBS BIANKA [id number] Social History Type Description Quantity Date Captured Comments Alcohol Use Details Unknown Caffeine Use Details Unknown Tobacco Use Status No Information Smoking Status Former Smoker Non-Smoking Tobacco Use Details : No Details Available : No Details Available Sex Male Vital Signs Date / Time: Height Weight BMI Pulse Rate Blood Pressure Temperature Respiratory Rate Body Surface Area Head Circumference Head Circ. Percentile Wt./Hernando. Percentile BMI percentile Pulse Ox Inhaled Ox 130.630 kg (288.00 lbs) 40.3 6 kg/m eter (2) 150/90 mm[Hg] Chief Complaint And Reason For Visit No Information Reason For Referral Reason For Referral No Information Plan Of Treatment Date Type Action Status Goal Tobacco cessation counseling completed Goal Diet education completed Goal Tobacco cessation counseling completed Goal Tobacco cessation counseling completed Goal Diet education completed Goal Tobacco cessation counseling completed Referral Ordered: Weight management: Referral to physician timeframe: 3 Months (related to Body mass index (BMI) 40.0-44.9, adult) ordered Referral Ordered: Weight management: Referral to physician timeframe: 3 Months (related to Body mass index (BMI) 40.0-44.9, adult) ordered History Of Present Illness Encounter Date Complaint History Of Prese nt Illness No Information Functional Status Date Functional Assessmen t No Information Instructions Date Instruction Additional Infor mation Giving Encouragement to exercise Related to Body mass index (BMI) 40.0-44.9, adult Lifestyle education Related to B sara mass index (BMI) 40.0-44.9, adult Diet education Related to Body mass index (BMI) 40.0-44.9, adult Patient education booklet given Related to Pain in left lower leg Diet education Related to Body mass index (BMI) 40.0-44.9, adult Giving Encouragement to exercise Related to Body mass index (BMI) 40.0-44.9, adult Lifestyle education Related to B sara mass index (BMI) 40.0-44.9, adult Patient education booklet given Related to Venous insufficiency (chronic) (peripheral) Assessments Type Assessment Date No Information Patient Care Teams Name Effective Dates (start - stop) Status Members No Information
--- NOTE | ~2024-09-04 | XR_ITS ---
EXAMINATION: XR CHEST CLINICAL INFORMATION: J40 - Bronchitis, not specified as acute or chronic COMPARISON: March 23, 2024 TECHNIQUE: 2 views of the chest were obtained. FINDINGS: No consolidation, pleural effusion or pneumothorax. No hyperinflation. Cardiomediastinal silhouette size is normal. Multilevel thoracic and upper lumbar spondylosis. Osteopenia versus osteoporosis. Patient's large body habitus/obesity. XR/XR chest 2V IMPRESSION: No acute airspace disease. Electronically signed by: Easton Arthur MD 09/04/2024 03:11 PM EDT
== END 2024-09-04 14:04 | disposition home or self-care (01) ==
LOC: HO.XRAY 14:03
PROVIDERS: PCP Internal Medicine; Visit Provider Hospitalist
DX: J40 Bronchitis, not specified as acute or chronic (principal); G47.33 Obstructive sleep apnea (adult) (pediatric); J44.9 Chronic obstructive pulmonary disease, unspecified; J30.9 Allergic rhinitis, unspecified; R53.1 Weakness; J32.9 Chronic sinusitis, unspecified; J98.11 Atelectasis
CPT/HCPCS: 71046; 99212

== ENCOUNTER 2024-09-04 14:03 | Outpatient (AMB) | payer MEDICARE, SELFPAY ==
--- NOTE | 2024-09-04 14:05 | MHC.OFFVIS ---
Vital Signs 09/04/24 14:06 Height 5 ft 11 in Weight 262 lb BMI 36.5 BP 134/82 Blood Pressure Location Rt brachial Position Sitting Pulse 88 Pulse Source Pulse Oximeter Temp 97 F Pulse Oximetry (%) 97 Oxygen Delivery Method Room Air Intake Visit Reasons: Obstructive sleep apnea Allergies Seasonal Allergies Allergy (Verified 09/04/24 14:15) Runny Nose HPI Comments Details: The patient is a 64-year-old gentleman known sleep apnea currently on ASV, allergic rhinitis and also asthma. The patient does use a nasal pillow mask with a chinstrap. Therapy has been affecting beneficial. He does get supplies through his [employer]. I will request a download from [employer] at this time. In the meantime he does complaint of a cough which is moderate severity in productive of sputum. He does have nasal congestion and does get allergy shots for allergic rhinitis. He has been using Flonase and has been helpful. He also takes Zyrtec and also had been on singular. Patient also complains of dyspnea on exertion. He does have a rescue inhaler but he does not have to use it. He was supposed to have pulmonary function studies but ultimately canceled. Will have to reschedule them prior to his next visit. I did provide him with the N30 mask that he can trial and see if is effective for him. Hopefully this with minimize irritation to the nostrils. 09/11/2022 the patient is here for a pulmonary follow-up visit. The patient has been having hard time with sinuses for the last 3-4 weeks. He feels significant congestion and also sinus pressure. He has taken axcc-ifg-wgktibg therapies in addition to nasal rinsing without a significant improvement. He has been on the azithromycin 3 times a week. The patient also complains of a cough secondary to the postnasal drip. His breathing otherwise has been okay as of now. The patient denies any fevers or chills. We did check his temperature today was 99 degrees. He already tested for COVID which was negative. This point the patient will be treated for sinusitis. Start with antibiotics in addition to Afrin syos-yjb-xjkmiyj nasal spray. If he has no better he can start some prednisone. Also to note he did have chest x-ray back in 03/16/2019 demonstrating no acute lung pathology. Consider getting a sinus x-ray if he has no better. In the meantime he continues uses CPAP. CPAP therapy continues to be affecting beneficial. He does use it for more than 4 hours a night. He actually can not sleep without it. 05/17/2023 the patient is here for a pulmonary follow-up visit. He has multiple complaints. Again complaining of no sinus congestion and pressure. Second sinusitis is coming back. He typically responds well to Augmentin. He knows to stop the azithromycin if he is going to take Augmentin. The patient will need to call the office her see ENT if he continues to have persistent sinusitis issues. in the meantime the patient complains of extremity weakness. Denies any muscle pains. Just feels weak having some difficulty even getting up from the toilet. The patient also had a fall landing on his left side. He does have some pleuritic left-sided discomfort. He will have a rib series. He will be talking to his primary care doctor soon About his weakness and fall.. He does take statins. Will go ahead and check a CPK specially since going to get blood work but he needs to follow-up with his primary care doctor and should benefit from referral to physiatry Neurology. He will talk to his primary care doctor about that. Regards to the CPAP that continues to be affecting beneficial. He continues use it every night for more than 4 hours a night. 12/20/2023 the patient is here for a pulmonary follow-up visit. He complaining of worsening cough. It is productive in nature. Moderate severity. He has been waking up also worse of times of the night coughing. He is using a towel to try to clear secretions. The patient is having some coughing episodes while using his I AVAP. He did bring it in. Is not find the humidity of the temperature. Appears that he just has significant nasal congestion. He also has inflammation of the nasopharynx and also of the posterior pharynx. Also having some chest congestion. He will have a chest x-ray today. The patient is no better after the Augmentin he will provide us with a sputum culture. In the meantime the patient will continue with his current AVAP setting. His AHI is down to 1 therefore I suggested that they keep the current pressures. Although I believe with a high pressures through the AVAPS he is better off with a fullface mask. Although he likes the nasal pillows. I would encourage him to try a fullface mask future. 01/30/2024 the patient is here for a pulmonary follow-up visit. He continues to have significant nasal congestion sinus pressure postnasal drip and cough. It is bothersome to him. The patient has had a course of Augmentin without any significant improvement. He is wondering about different antibiotic. Thinking about Levaquin. Explained to him that he is having issues with bursitis and the Levaquin can potentially worsen tendinitis and bursitis. Therefore hold off on that we will try a combination of Augmentin and doxycycline. We did get a culture that was positive for Haemophilus parainfluenza. We did talk that if the patient continued to be symptomatic we can consider performing a bronchoscopy for deep cultures. But also he can follow-up with ENT since he is already established with them regarding the patient have a laryngoscopy at the bedside. In addition to that he had blood work previously. His eosinophil counts were significantly elevated. Therefore we could also consider the use of Dupixent. Will request additional blood work to see if he still candidate for that. In the meantime he is going to continue with the nasal rinsing. He is also going to start budesonide along with his Neti bottle. He will continue to use CPAP right now. He is using a fullface mask. The therapy has been affecting beneficial. She will use it for more than 4 hours a night. Will follow-up in 6 weeks to assess his progress with the therapy and will review the blood work to see if he is a candidate for Dupixent. 04/10/2024 the patient is here for pulmonary follow-up visit. Overall he is doing about the same. Still complaining of nasal congestion sinus pressure. He did well on the Augmentin doxycycline combination. Then after that he did see ENT and he was given Bactrim. They did a laryngoscopy I believe I do not have the report. And cultures were sent and I do not have those reports either. Then after you finish the antibiotics he feels like symptoms are coming back. We did talk about the concerns of multiple antibiotics in the risk of C diff colitis and resistance. Therefore, he is asking for more medications. Will go ahead and just given the doxycycline by itself. He can also uses a short course of prednisone to try to help open up the sinuses a little better. He did have a CT scan of the head because he had a fall at a gas station because he tripped on some object. He hit his head in addition to his side on the right side. He had a CT scan of the head that demonstrated significant chronic sinusitis primarily maxillary sinus and also a ethmoids retention cyst. He will be seen the ENT doctor soon he will discuss those findings with them. Patient for now continues the Neti bottle rinse with budesonide which appears to be helping and will go ahead and start him back on doxycycline. The patient did have blood work done and his eosinophils appear to be better. I am not sure if he is a good candidate for Dupixent at this time. Will have to watch and wait to see his response to the ENT treatment. He does continue on allergy shots. He does get that through ENT. In addition to this he did have a chest x-ray when he fell he was evaluated. Demonstrated some new atelectasis to the lingula. Will go ahead and work on deep breathing exercises and will repeat the x-ray in 6 weeks. If the area still abnormal will request a CT scan of chest. 09/04/2024 the patient is here for pulmonary follow-up visit. The patient has multiple complaints. He has worsening cough chest congestion very tenacious mucus. Moderate severity. Typically worse in the morning. He did respond well to doxy and Augmentin before. Will try to get another culture to see if he is growing any smoldering infections that require further antibiotics. In the meantime he also had a chest x-ray demonstrating some atelectasis to the left hemithorax. Will go ahead and repeat the x-ray. If the mucus continues to be significantly burdens some it if his x-ray is abnormal and if the sputum culture is not available or helpful a bronchoscopy will be very reasonable to address any respiratory infections and to assess the airways clearly. He can also provide therapeutic cleaning of the airways as well. The patient continues uses ASV. He tolerates it well although he is using nasal pillows. Has significant air leakage. And also get sinus impaction. I did have an F 40 mask available that he will try. His AHI is otherwise okay at 2.1 events per hour for the last month. The patient also appears to have a tick bite on his arm and has a target sign. Therefore, will go ahead and send doxycycline anyway that he can start for the likelihood of Lyme disease although I did recommend he follow-up with his primary care doctor and get serology testing. [facility] Medical History (Updated 12/20/23 @ 13:06 by Stephen Bahena MD) Bronchitis Weakness Chest pain Atelectasis Tobacco dependence syndrome (~01/13/22) Senile hyperkeratosis (~02/21/18) Sciatica (~11/24/12) Osteoporosis (~09/20/17) Obstructive sleep apnea syndrome (~01/04/10) Low back pain (~07/14/12) Hypertension (~07/14/12) Erectile dysfunction (~11/24/12) Hypercholesterolemia (~07/14/12) Chronic kidney disease, stage 3 (~09/22/17) Chronic pain syndrome (~11/20/16) Chronic cough Chronic allergic rhinitis Hyperlipidemia JENN on CPAP Asthma-COPD overlap syndrome Dyspnea Cough Asthma Sinusitis Osteoarthritis of knees, bilateral Spondylosis of cervical joint without myelopathy Surgical History History of colonoscopy (~10/16/21) Family History Father Parkinson disease Mother Sister Obesity Hypertension Social History Household Members: Spouse Housing: House Patient Tobacco Use Status: Former Tobacco user Tobacco use type: Cigarette Cigarette Packs Per Day: 1 Years Smoked: 30 years service: No Current occupational status: unemployed Review of Systems Const Denies night sweats and Reports weight loss ENT Denies change in voice, Denies lip swelling, Denies mouth pain, Reports nasal congestion, Reports nasal discharge, Reports sinus pain, Reports sinus pressure and Denies tongue swelling Card Reports dyspnea on exertion Resp Reports chest congestion, Reports cough, Reports pain on inspiration, Reports pain with cough and Reports dyspnea on exertion GI Denies abdominal pain Musc Reports abnormal gait, Reports joint swelling, Reports limited range of motion and Reports muscle weakness Neuro Denies Neuro-related abnormal movements and Reports abnormal gait Psych Denies no additional complaints Sheldon/Lymph Denies easy bleeding and Denies lymphadenopathy Aller/Immun Denies lip swelling and Denies tongue swelling Physical Exam Vital Signs: Last Vital Signs Temp 97 F 09/04/24 14:06 Pulse 88 09/04/24 14:06 BP 134/82 09/04/24 14:06 Pulse Ox 97 09/04/24 14:06 Oxygen Delivery Method Room Air 09/04/24 14:06 BMI result Body Mass Index 36.5 HEENT Head: Yes normocephalic General nose exam: Abnormal mucous membranes and turbinates present erythematous and Nasal discharge present purulent and mucoid Throat: Yes postnasal drainage and Yes cobblestoning Eyes Alignment and Position: alignment normal Pupils: Equal, round and reactive pupils present Neck Neck: Yes normal visual inspection, Yes full ROM and Yes no lymphadenopathy Chest Chest palpation & inspection: normal inspection of the chest, no crepitus and tenderness Resp Auscultation: no wheezes and diminished lung sounds Cardio Rate: regular rate Rhythm: regular rhythm Heart sounds: S1 normal heart sound present and S2 normal heart sound present GI Palpation (GI): Soft to palpation and nontender Auscultation: normal bowel sounds Skin General skin exam: rashes and/or lesions noted Neuro Cranial nerves: Yes Equal, round and reactive pupils present Assessment & Plan Assessment & Plan (1) JENN on CPAP: Code(s): G47.33 - Obstructive sleep apnea (adult) (pediatric); Z99.89 - Dependence on other enabling machines and devices Category: Medical (2) Asthma-COPD overlap syndrome: Code(s): J44.9 - Chronic obstructive pulmonary disease, unspecified Category: Medical (3) Cough: Code(s): R05 - Cough Category: Medical Qualifiers: Cough type: chronic Qualified Code(s): R05.3 - Chronic cough (4) Chronic allergic rhinitis: Code(s): J30.9 - Allergic rhinitis, unspecified Category: Medical (5) Weakness: Code(s): R53.1 - Weakness Category: Medical (6) Sinusitis: Code(s): J32.9 - Chronic sinusitis, unspecified Category: Medical Qualifiers: Chronicity: subacute Sinusitis location: unspecified location Qualified Code(s): J01.90 - Acute sinusitis, unspecified (7) Atelectasis: Code(s): J98.11 - Atelectasis Category: Medical (8) Bronchitis: Code(s): J40 - Bronchitis, not specified as acute or chronic Category: Medical Plan CPT with nebulized therapy followed by hypertonic saline continue antihistamine and Singulair continue PAP therapy okay to use it without humidification reflux diet sputum cx CXR start Doxycycline/Augmentin Budesonide Consider bronchosocpy for therapeutic cleaning and deep cultures if no better Continue Daliresp CXR, if no better, then will request a CT chest follow-up 2-3 months Orders: Orders XR chest 2V 09/04/24 J40 - Bronchitis, not specified as acute or chronic, J98.11 - Atelectasis Sputum Cult + Gram stain 09/04/24 J40 - Bronchitis, not specified as acute or chronic, J98.11 - Atelectasis, R91.1 - Solitary pulmonary nodule Medications: New doxycycline hyclate 100 mg PO BID 42 caps 0RF 21 days amoxicillin-pot clavulanate 875-125 mg 1 tab PO BID 28 tabs 0RF 14 days Coding Level of Care Code Est Pt Level 5 (43288) Complex EM visit Add On G2211 Diagnoses JENN on CPAP G47.33; Z99.89 Asthma-COPD overlap syndrome J44.9 Chronic cough R05.3 Cough type: chronic Chronic allergic rhinitis J30.9 Weakness R53.1 Subacute sinusitis, unspecified location J01.90 Chronicity: subacute Sinusitis location: unspecified location Atelectasis J98.11 Bronchitis J40 Time Spent (min) 45
[2024-09-04 14:06] VITALS: BP 134/82; PULSE 88; TEMP 36.1; O2SAT 97; BMI 36.5
--- OUTSIDE RECORDS SUMMARY | 2024-09-04 14:07 | XMS_ITS | Encounter Summary ---
Author Organization [employer] Address [address] [place] [address] Care Team Providers Care Die Cutting Machine Operator Name Role Phone Handy Elias MD Primary Care Provider [phone] Reason for Referral * Consultation (Routine) - Closed Specialty Diagnoses / Procedures Referred By Maurice weaver Referred To Contact Otolaryngology Diagnoses Other chronic sinusitis Handy Elias MD [address] [place] [address] Phone: tel: fax: [facility] [address] Phone: tel: fax: Referral ID Status Reason Start Date Expiration Date V isits Requested Visits Authorized [id number] Closed Specialty Services Required 03/25/2024 03/25/2025 1 1 Encounter Details Date Type Department Care Team ([facility] st Contact Info) Description 03/25/2024 Orders Only [facility] [address] [place], [place] [phone] Handy Elias MD [address] [place], [place] [phone] Other chronic sinusitis (Primary Dx) Social History [...] Care Team (Late st Contact Info) Description 11/05/2024 4:00 PM EDT Office Visit [facility] [address] [place] [address] Handy Elias MD [address] [place] [address] 11/09/2024 2:30 PM EDT Telemedicine [facility] [address] [place] [address] Tessa Cox RN [address] [place] [address] Scheduled Referrals Name Type Priority Associated Diagnoses Orde r Schedule Referral to ENT Outpatient Referral Routine Other chronic sinusitis Expected: 03/25/2024 (Approximate), Expires: 03/25/2025 documented as of this encounter Visit Diagnoses Diagnosis Other chronic sinusitis- Primary documented in this encounter Care Teams Die Cutting Machine Operator Relationship Specialty Start Date End Date Handy Elias MD [address] [place] [id number] PCP - General Internal Medicine 11/17/12 documented as of this encounter
--- OUTSIDE RECORDS SUMMARY | 2024-09-04 14:07 | XMS_ITS | Encounter Summary ---
Author Organization [facility] Address [address] [place] [address] Phone Care Team Providers Care Assurance Sourcing Manager Name Role Phone Handy Elias MD Primary Care Provider [phone] Encounter Details Date Type Department Care Team (Late st Contact Info) Description 2022 Telephone [facility] [address] [place] [address] Christie Leone Social History Tobacco [...] on filedocumented in this encounter Care Teams Assurance Sourcing Manager Relationship Specialty Start Date End Date Handy Elias MD PCP - General Internal Medicine 10/19/20 documented as of this encounter
--- OUTSIDE RECORDS SUMMARY | 2024-09-04 14:07 | XMS_ITS | Data Portability ---
Author Organization [facility], Allergy Address [address] [place] [address] Assessment Encounter Date Assessment Date Assessment LastModified by Organization Details LastModified Time 04/15/2024 04/15/2024 Visit With: Cookie Blackwell Use of Antihistamine s: No If yes: Vial Test Change in medications: No If yes Increase in asthma symptoms If yes, inhaler use: Reaction to last injections: No If yes: Allergy Symptoms: Other: Missed: Dose Aware of Vial Test Notes: Not available 04/15/2024 14:55:58 04/22/2024 04/22/2024 Visit With: Cookie Blackwell Use of Antihistamine s: No If yes: Vial Test Change in medications: No If yes Increase in asthma symptoms If yes, inhaler use: Reaction to last injections: No If yes: Allergy Symptoms: Other: Missed: Dose Aware of Vial Test Yes Notes:aware he is back to being monthly [email or web address] Not available 04/22/2024 13:45:24 05/12/2024 05/12/2024 Visit With: Karoline Kelly RN Use of Antihistamine s: No If yes: Vial Test Yes Change in medications: No If yes Increase in asthma symptoms If yes, inhaler use: Reaction to last injections: No If yes: Allergy Symptoms: Other: Missed: Dose Aware of Vial Test Notes: [email or web address] Not available 05/12/2024 14:45:01 07/07/2024 07/07/2024 Visit With: YOANNA Potts Use of Antihistamine s: No If yes: Vial Test Change in medications: No If yes Increase in asthma symptoms If yes, inhaler use: Reaction to last injections: No If yes: Allergy Symptoms: Other: Missed: 1month Dose Decreased Aware of Vial Test Notes: [email or web address] Not available 07/07/2024 15:13:08 08/14/2024 08/14/2024 Visit With: Cookie Blackwell Use of Antihistamine s: No If yes: Vial Test Change in medications: No If yes Increase in asthma symptoms If yes, inhaler use: Reaction to last injections: No If yes: Allergy Symptoms: Other: Missed: Dose Aware of Vial Test Aware: Notes: [email or web address] Not available 08/14/2024 14:02:49 Plan of Treatment Reminders Order Date Submit Date Provider Last Modified By Organization Details Last Modified Time Details Appointments [facility] hed- Allergy f-up 6mon 2024 01:30P M ESSIE [...] and Address Organization Details Recorded Time Snoring 41251513 Active 2016 Snoring; Note: Date Diagnosed: 08/23/2016 4:44 PM (R06.83) Not Available [facility] 4 02:47:57 Acute pharyngit is 624050219 Active 2013 Pharyngiti s, acute; CMS Risk: low risk CMS Treatment: new problem (to examiner): additional workup planned No te: Date Diagnosed: 12/16/2013 4:30 PM (462) Not Available [facility] 4 02:47:57 Hypertrop hy of tonsils 26345848 Active 2016 Hypertroph y of tonsils; Note: Date Diagnosed: 08/23/2016 4:50 PM (J35.1) Not Available [facility] 4 02:47:54 Acute sialoaden itis 268696832 Active 2021 Acute sialoadeni tis; Note: Date Diagnosed: 01/23/2022 3:21 PM (K11.21) Not Available [facility] 4 02:47:55 Abnormal auditory perceptio n 12819058 Active 2017 Other abnormal auditory perception s, bilateral; Note: Date Diagnosed: 09/02/2017 4:53 PM (H93.293) Not Available [facility] 4 02:47:53 Cough 21576148 Active 2016 Cough; Note: Date Diagnosed: 03/23/2016 4:25 PM (R05) Not Available [facility] 4 02:47:53 Acute sinusitis 77908202 Active 2016 Acute sinusitis, unspecifie d; Note: Date Diagnosed: 02/07/2017 3:59 PM (J01.90) Not Available [facility] 4 02:47:58 Sensorine ural hearing loss of bilateral ears 302414748 Active 2017 Sensorineu ral hearing loss, bilateral; Note: Date Diagnosed: 09/02/2017 5:33 PM (H90.3) Not Available [facility] 4 02:47:51 Posterior rhinorrhe a 54313853 Active 2016 Postnasal drip; Note: Date Diagnosed: 02/07/2017 3:59 PM (R09.82) Not Available [facility] 4 02:47:58 Simple obesity 124891209 Active 2016 Other obesity due to excess calories; Note: Date Diagnosed: 08/23/2016 4:44 PM (E66.09) Not Available [facility] 4 02:47:56 Nasal congestio n 96234833 Active 2016 Nasal congestion ; Note: Date Diagnosed: 03/23/2016 4:25 PM (R09.81) Not Available [facility] 4 02:47:57 Obstructi ve sleep apnea syndrome 56907430 Active 2016 Obstructiv e sleep apnea (adult) (pediatric ); Note: Date Diagnosed: 08/23/2016 4:44 PM (G47.33) Not Available [facility] 4 02:47:53 Allergic rhinitis caused by pollen 25713837 Active 2022 Allergic rhinitis due to pollen; Note: Date Diagnosed: 12/18/2022 3:52 PM (J30.1) Allergic rhinitis due to pollen; Note: Date Diagnosed: 04/19/2021 1:28 PM (J30.1) ; Start Date : 04/19/2021 Not Available [facility] 02:47:55 Allergic rhinitis 00670483 Active 2023 Allergic rhinitis: Due to other [...] Diagnosed: 12/08/2021 2:10 PM (477 Not Available [facility] 01:08:11 Perennial allergic rhinitis 397186359 Active 2023 YOANNA SAINZ 100 [facility],[place] [address], [place], [address] , [facility] - [facility] 14:51:26 Chronic sinusitis 32531461 Active 2024 ESSIE PLEITEZ PA-C [address] [facility] [place],[address] [facility], [place], [address] , [facility] - [facility] 16:05:25 Problem Notes None recorded. Procedures Surgical History Date Name Laterality Status Provider Name and Address Organization Details Recorded Time 08/15/19 25 Allergy Immunotherapy Injections completed YOANNA SAINZ [address] [facility] [place],[address] [facility], [place], [address], [place] [facility] 08/14/2024 14:03:05 07/08/19 25 Allergy Immunotherapy Injections completed YOANNA POTTS [address] [facility] [place],[address], [address], [place] [facility] 07/07/2024 15:12:46 05/13/19 25 Allergy Immunotherapy Injections completed YOANNA SAINZ [address] [facility] [place] [address], [place], [address], [place] [facility] 05/12/2024 14:44:23 04/22/19 25 Allergy Immunotherapy Injections completed YOANNA SAINZ [address] [facility] [place],[address] [place] [address], [address], [facility] - [facility] 04/22/2024 13:45:00 04/15/19 25 Allergy Immunotherapy Injections completed YOANNA SAINZ 100 [facility],[place] [address], [place], [address], [facility] - [facility] 04/15/2024 14:55:54 04/15/19 25 NasalEndoscopy_DP completed YUNIEL DONALD MD [address] [facility] [place],[address], [address], [facility] - [facility] 04/15/2024 14:43:26 04/09/19 25 Allergy Immunotherapy Injections completed GUY NUNN RMA [address] [facility] [place] [place] [address], [address], [place] [facility] 04/09/2024 15:24:18 04/03/19 25 Allergy Immunotherapy Injections completed YOANNA SAINZ [address], [place], [address], [place] [facility] 04/03/2024 13:31:44 03/27/19 25 Allergy Immunotherapy Injections completed KAROLINE KELLY RN [address], [place], [address], [place] [facility] 03/27/2024 13:20:20 03/13/19 25 Allergy Immunotherapy Injections completed GUY NUNN, RMA [address], [place], [address], [place] [facility] 03/13/2024 14:51:01 02/26/19 25 Allergy Immunotherapy Injections completed GUY NUNN RMA [address] [facility] [address], [place], [address], [place] [facility] 02/27/2024 16:07:25 02/26/19 25 JMSNasal/Sinus Endoscopy completed ESSIE PLEITEZ PA-C [address] [facility] [facility], [place], [address], [place] [facility] 02/27/2024 16:37:51 02/17/20 24 Allergy Immunotherapy Injections completed KAROLINE KELLY RN [address] [facility] [address] [place] [address], [address], [place] [facility] 02/17/2024 14:48:11 10/16/19 24 Allergy Immunotherapy Injections completed YOANNA SAINZ [address] [facility] [address], [place], [address], [place] [facility] 10/16/2023 16:51:03 09/25/19 24 Allergy Immunotherapy Injections completed KAROLINE KELLY RN [address] [facility] [address] [place] [address], [address], [place] [facility] 09/25/2023 11:18:43 08/13/19 24 Allergy Immunotherapy Injections completed YOANNA SAINZ [address] [facility] [address], [place], [address], [place] [facility] 08/13/2023 15:02:29 07/18/19 24 Allergy Immunotherapy Injections completed COOKIE BLACKWELL, [facility] 100 [facility],[place] [address], [place], [address], [place] [facility] 07/18/2023 14:51:59 Imaging Results None recorded. [...] by mouth 02/26 completed Medicati on ID: [id number] D uration Value: 12 Brand Name: predniso [...] Value: 10 Prescri bed By Name: Rosie aGo rd, nd Name: clindamy taz HCl Send [...] mg tablet 02/26 completed Medicati on ID: [id number] D uration Value: 30 Brand Name: tizanidi [...] mg tablet 03/16 completed Medicati on ID: [id number] D uration Value: 30 Reason: () Brand Name: citalopr am Send Method: E-Prescr ibed Sub s Allowed: subs OK Speci al Instruct ion: TAKE 1 TABLET BY MOUTH EVERY DAY Medi cationGe nericNam e: citalopr am Not Available Not Available Not Available Anafranil 50 mg capsule 02/26 completed Medicati on ID: [id number] B rand Name: Anafrani l Send Method: [...] mg) tablet 2019 active Medicati on ID: 481863 B rand Name: Calcium 600 Send Method: E-Prescr ibed Sub s Allowed: subs OK Medic ation[facility] ericName : Calcium 600 Not Available Not [...] No t Available Nasonex 50 mcg/actua tion Dardanelle 2 spray into both nostrils 02/26 completed Medicati on ID: [id number] D uration Value: 30 Prescri bed By [...] mg tablet 03/16 completed Medicati on ID: [id number] D uration Value: 30 Reason: () Brand [...] ne propionat e 50 mcg/actua tion nasal spray,amrla pension 2 puff 2021 active Medicati on ID: [id number] D uration Value: 30 Prescri bed By Name: Kavon Phoeinx MD Brand Name: fluticas one propiona te Send Method: E-Prescr ibed Sub s Allowed: subs OK Medic ationGen ericName : fluticas one propiona te Not Available Not Available Not Available dicyclomi ne 10 mg capsule TAKE 1 CAPSULE BY MOUTH 4 TIMES DAILY. active Not Available Not Available No t Available ipratropi um bromide 21 mcg (0.03 %) nasal spray Dardanelle 2 spray into both nostrils three times a day 02/26 completed Medicati on ID: [id number] D uration Value: 30 Brand Name: ipratrop ium bromide Send Method: E-Prescr ibed Sub s Allowed: subs OK Speci al Instruct ion: 2 sprays in each nostril 1-3 times a day Medi cationGe nericNam e: ipratrop ium bromide Not Available Not Available Not Available finasteri de 5 mg tablet 03/16 completed Medicati on ID: [id number] D uration Value: 30 Reason: () Brand [...] by mouth 02/26 completed Medicati on ID: [id number] D uration Value: 7 Prescri bed By [...] by mouth 02/26 completed Medicati on ID: [id number] D uration Value: 10 Prescri bed By Name: DAYANNA Liang nd Name: guaifene sin Send Method: E-Prescr ibed Sub s Allowed: subs OK Medic ationGen ericName : guaifene sin Not Available Not Available Not Available oxymetazo line 0.05 % nasal spray 03/16 completed Medicati on ID: [id number] P rescribe d By Name: DAYANNA Liang [...] extended release 10/24 completed Medicati on ID: [id number] B rand Name: bupropio n HCl Send Method: E-Prescr ibed Sub s Allowed: subs OK Speci al Instruct ion: TAKE 1 TABLET BY MOUTH EVERY MORNING Medicati onGeneri cName: bupropio n HCl Not Available Not Available Not Available Fosamax Plus D 70 mg-2,800 unit tablet 02/26 completed Medicati on ID: [id number] B rand Name: Fosamax Plus D Send [...] mg capsule 10/24 completed Medicati on ID: [id number] B rand Name: CoQ-10 S end Method: [...] Available B12 09/13 completed Medicati on ID: 848511 B rand Name: b12 Send Method: E-Prescr ibed Sub s Allowed: subs OK Medic ationGen ericName : b12 Not Available Not Available Not Available Dulera 200 mcg-5 mcg/actua tion HFA aerosol inhaler 2 puff 02/26 completed Medicati on ID: [id number] D uration Value: 90 Brand Name: Dulera [...] Updated DateTime 04/15/2024 180.34 cm 37 kg/m2 182545.98 g Ector Pedraza [place] [facility] 04/15/2024 14:10:22 Social History None recorded. Functional Status None recorded. Mental Status None recorded. Family History Nothing Reported. Medical History Condition Response Hypertension Y High Cholesterol Y GERD/Reflux Y Past Encounters Encounter ID Performer Location Encounter Start Date Encounter Closed Date Diagnosis/Indication Diagnosis SNOMED-CT Code Diagnosis ICD10 Code Diagnosis Note [id number] YOANNA SAINZ All[facility] 100 [facility] 100 [facility] [place]ANKA BRITO [address] 07/18/2023 14:48:19 07/18/2023 15:28:24 Perennial allergic rhinitis 300258275 J30.89 [id number] SHAAN NORMAN PA-C [facility] - [place] [facility] 100 [facility] [place] [address] 07/23/2023 13:05:54 07/23/2023 13:46:22 Allergic rhinitis 10520627 J30.9 Nasal congestion 4132839 0 R09.81 Posterior rhinorrhea 758 58479 R09.82 [id number] COOKIE BLACKWELL [facility] Allergy [address] [place] [address] 100 [facility], [place] 9 08/13/2023 14:55:05 08/13/2023 15:27:43 Perennial allergic rhinitis 202378560 J30.89 [id number] KAROLINE KELLY RN Allergy [address] [place] [address], [place] 9 09/25/2023 10:48:16 09/25/2023 11:19:33 Perennial allergic rhinitis 831845070 J30.89 [id number] COOKIE BLACKWELL [facility] Allergy [address] [place] [address], [place] 9 10/16/2023 15:40:04 10/16/2023 17:27:25 Perennial allergic rhinitis 998401374 J30.89 [id number] KAROLINE KELLY RN Allergy [address] [place] [address], [place] [address] 02/17/2024 13:50:57 02/17/2024 14:49:34 Perennial allergic rhinitis 342707883 J30.89 [id number] ESSIE PLEITEZ PA-C [facility] - [facility] ld [address] [place] [address], [place] [address] 02/27/2024 15:21:49 02/27/2024 16:04:55 Chronic sinusitis 84164859 J32.9 Perennial allergic rhinitis 962773115 J30.89 [id number] GUY DUARTE, [facility] Allergy [address] [place] [address],[facility] [address] [place] [address] 02/27/2024 16:06:49 02/27/2024 16:07:58 Perennial allergic rhinitis 458989325 J30.89 [id number] GUY DUARTE, [facility] Allergy [address] [place] [address] ite [address] [place] [address] 03/13/2024 14:34:16 03/13/2024 14:51:30 Perennial allergic rhinitis 009819540 J30.89 [id number] COOKIE BLAKCWELL [facility] Allergy [address] [place] [address] [address] [place] [address] 03/27/2024 13:00:24 03/27/2024 13:21:07 Perennial allergic rhinitis 174258197 J30.[id number] [facility] Allergy [address] [place] [address] [address] [place] [address] 04/03/2024 12:51:55 04/03/2024 13:32:07 Perennial allergic rhinitis 342969246 J30.[id number] [facility] Allergy [address] [place] [address] 100 [place] [address] 04/09/2024 14:46:04 04/09/2024 15:25:13 Perennial allergic rhinitis 073048786 J30.89 [id number] YUNIEL DONALD MD [facility] [address] [place] [address], [place] [address] 04/15/2024 13:59:30 04/15/2024 14:47:16 Allergic rhinitis 99361698 J30.9 [id number] [address] [place] [address] 04/15/2024 14:54:56 04/15/2024 14:56:12 Perennial allergic rhinitis 090570992 J30.89 [id number] COOKIE BLACKWELL [facility] Allergy [address] [place], [place] [address] [address] [place] [address] 04/22/2024 13:22:05 04/22/2024 14:29:58 Perennial allergic rhinitis 168523301 J30.89 [id number] KAROLINE KELLY RN Allergy [address] [place], [place] [address] [address] [place] [address] 05/12/2024 14:43:08 05/12/2024 14:45:26 Perennial allergic rhinitis 286770490 J30.[id number] [facility] Allergy [address] [place] [address] ite 100 [facility] [address] 07/07/2024 14:56:36 07/07/2024 15:15:32 Perennial allergic rhinitis 879798265 J30.89 [id number] COOKIE BLACKWELL, RMA Allergy 100 [facility],[place] ite 100 [place] [address] 08/14/2024 13:53:02 08/14/2024 14:03:20 Perennial allergic rhinitis 353594754 J30.89 Health Concerns Section Related Observation LastModified by Organization Detai ls LastModified Time None Recorded Concern Status LastModified by Organization Details LastModified Time None Recorded Advance Directives Directive None Recorded Payers Insurance Date Sequence Insurance Name Policy Number Policy Aranda Covered Member ID Aranda Member ID Guarantor Name 08/14/2024 2 [place] [id number] Henri Espino [id number] Henri Espino 08/14/2024 1 [place] B[place] [facility] [employer] Henri Espino [id number] 1 Henri Espino Notes Date Note Type Note Provider Name and Address Organization Details Recorded Time 04/15/2024 text/html PV 02/27/24 Essie - sinus, culture takenmixed martín, post treatment ct sinus requested culture + for Haemophilus parainfluenzae.05/16 augmentin 14d4/2/24 augmentin 14d6/24 cipro 10d1024 augmentin 10d11//24 levaquin 14d12/24 augmentin 14d12//24 doxy 14d1/ bactrim 14d w prednisone 3d04/10/24 doxy 14d SCIT 09/2020 - presentweekly to catch up then to resume monthly 03/23/24 [facility], smal retention cyst right posterior ethmoid sinus describes sig PND volumePulm Dr [place] YUNIEL DONALD MD 100 [facility],[address], [place], [address], [facility] - [facility] 04/15/2024 14:45:10
== END 2024-09-04 14:46 | disposition home or self-care (01) ==
PROVIDERS: PCP Internal Medicine; Visit Provider Hospitalist
DX: G47.33 Obstructive sleep apnea (adult) (pediatric) (principal); Z99.89 Dependence on other enabling machines and devices; J44.9 Chronic obstructive pulmonary disease, unspecified; R05.3 Chronic cough; J30.9 Allergic rhinitis, unspecified; R53.1 Weakness; J01.90 Acute sinusitis, unspecified; J98.11 Atelectasis; J40 Bronchitis, not specified as acute or chronic
CPT/HCPCS: 99215; G2211

== ENCOUNTER → 2024-09-04 14:53 | Outpatient (BNV) | payer MEDICARE, SELFPAY | PROVIDERS: PCP Internal Medicine; Visit Provider Radiology Diagnostic Radiology | DX: M47.815 Spondylosis without myelopathy or radiculopathy, thoracolumbar region (principal) | CPT/HCPCS: 71046 ==

== ENCOUNTER 2024-09-17 12:10 | Outpatient (REF) | payer MEDICARE, SELFPAY ==
--- OUTSIDE RECORDS SUMMARY | 2022-01-26 01:00 | XMS_ITS | Encounter Summary ---
Author Organization [facility] Address [address] [place] [address] Phone Care Team Providers Care Stone Carver Name Role Phone Handy Elias MD Primary Care Pr ovider Encounter Details Date Type Department Care Team (Late st Contact Info) Description 01/26/2022 Hospital Encounter [facility] [address] [place] [phone] Kenyetta Rubio MD [address] [place] [phone] [email or web address] Social History Tobacco Use Types Packs/Day Years [...] on filedocumented in this encounter Care Teams Stone Carver Relationship Specialty Start Date End Date Handy Elias MD PCP - General Internal Medicine 08/11/20 documented as of this encounter Additional Source Comments The information contained in this document represents components of the legal health record. It is not the complete legal health record.[facility]
--- OUTSIDE RECORDS SUMMARY | 2023-03-21 09:30 | XMS_ITS | Continuity of Care Document ---
Author Organization [facility] Address [address] [place] [address] Phone Care Team Providers Care Milieu Technician Name Role Phone Adria LACKEY, RVT, LEÓN, [...] (unknown strength) Not Available - Active VITAMIN [id number] ACID (unknown strength) Not Available - Active [...] E&M Established 15 Mins [facility], [address] [place] [address] Dr Arshad 1000[facility] 1000[place], [id number], [place] tel:[phone] CVR - [facility] Cramp and spasmRestless legs syndromeEssent ial (primary) hypertensionPa in in left lower legPain in left legLocalized edema 4 Adria LACKEY, RVT, LEÓN Torres. [address] [place] [address], [place], [place], [id number] , [place]. tel:[phone] Referring Provider: Handy Mckeon, [address] [place] [address], [address]. tel:[phone] [facility], [address] [place] [address] Dr Arshad [address] [address], [place], [id number], [place] tel:[phone] CVR - [facility] Encounter for follow-up examination after completed treatment for conditions other than malignant neVaricose veins of right lower extremity with pain 3 Asim LACKEY FACS RVT LEÓN [place]. [address] [place] [address], [place], [address], [place]. tel:[phone] Referring Provider: Handy Mckeon, [address], [address]. tel:[phone] [facility], [address] [place] [address] Dr Arshad 1000[address], [place], [id number], [place] tel:[phone] CVR - [place] Varicose veins of right lower extremity with other complications Jan-0 3 Doreen De Paz . [address], [place] [address], [place], [place], [id number] , [place]. tel:[phone] Referring Provider: Handy Mckeon, [address], [address]. tel:[phone] [facility], [address] [place] [address] Dr Arshad 1000[address] 1000[place], [id number], [place] tel:[phone] CVR - [place] Varicose veins of right lower extremity with other complications 3 Asim LACKEY FACS Ralf [facility]. [address] [place] [address], [place], [address], [place]. [phone] Referring Provider: Handy Mckeon, [address] [place] [address], [address]. tel:[phone] Office/Outpt E&M Established 25 Mins [facility], [address] [place] [address] Dr Arshad 1000[address] 1000[place], [id number], [place] tel:[phone] CVR - [place] - [place] Chronic venous hypertension (idiopathic) with other complications of bilateral lower extremity Nov- 3 Asim LACKEY FACS Ralf [facility]. [address] [place] [address], [place], [address], [place]. tel:[phone] Referring Provider: Handy Mckeon, [address], [address]. tel:[phone] Office/Outpt E&M Established 10 Mins - [facility], [address] [place] [address] Dr Arshad 1000[address] [address], [id number], [place] tel:[phone] CVR - [place] Venous insufficiency (chronic) (peripheral) Apr-2 6-202 3 Asim LACKEY FACS T [facility]. [facility], [place] [address], [place], [address], [place]. tel:[phone] Referring Provider: Handy Mckeon, [address] [place] [address], [address]. tel:[phone] Office/Outpt E&M Established 15 Mins [facility], [address] [place] [address] [address] [address], [place], [id number], [place] [phone] CVR - [place] Venous insufficiency (chronic) (peripheral) 3 Asim LACKEY FACS [facility]. [address] [place] [address], [place], [address], [place]. [phone] Referring Provider: Handy Mckeon, [address] [place] [address], [address]. tel:[phone] [facility], [address] [place] [address] Dr Arshad 1000[address], [place], [id number], [place] tel:[phone] CVR - [place] Venous insufficiency (chronic) (peripheral) 3 Asim LACKEY [facility]. [address] [place] [address], [place] [address], [place], [address], [place]. [phone] Referring Provider: Blanka Dailey MD FACS [facility], [address] [place] [address], [place], [address]. tel:[phone] Office/Oupt E&M New Pt 30 Mins [facility], [address] [place] [address] Dr Arshad 1000Suite 1000[place], [id number], [place] tel:[phone] CVR - [place] Venous insufficiency (chronic) (peripheral)Lo calized edemaRestless legs syndromeEssent ial (primary) hypertensionPr uritus, unspecifiedFla il joint, unspecified jointPain in right legPain in left legPain in right lower legPain in left lower legCramp and spasm 3 Asim LACKEY FACS RVT RPTEREZA [facility]. [address] [facility] [address], [address], [place], [address], [place]. tel:[phone] Referring Provider: Blanka Dailey MD FACS RVT [facility], [address], [place], [address]. tel:[phone] Family History Family Member Type Diagnosis Age At Onset No Information Payers Payer name Insurance type Covered democrat ID Authoriza tion(s) Medicare BIANKA MB [id number] BCBS BIANKA [id number] Social History Type Description Quantity Date Captured [...]
--- OUTSIDE RECORDS SUMMARY | 2024-09-17 12:44 | XMS_ITS | Encounter Summary ---
Author Organization [employer] Address [address] [place] [address] Care Team Providers Care Economic Analysis Director Name Role Phone Handy Elias MD Primary Care Provider [phone] Reason for Referral * Consultation (Routine) - Closed Specialty Diagnoses / Procedures Referred By Maurice weaver Referred To Contact Otolaryngology Diagnoses Other chronic sinusitis Handy Elias MD [address] [place] [address] Phone: tel: fax: [facility] [address] Phone: tel: fax: Referral ID Status Reason Start Date Expiration Date V isits Requested Visits Authorized [id number] Closed Specialty Services Required 03/25/2024 03/25/2025 1 1 Encounter Details Date Type Department Care Team ([facility] st Contact Info) Description 03/25/2024 Orders Only [facility] [address] [place], [place] [phone] Handy Elias MD [address] [place], [place] [phone] Other chronic sinusitis (Primary Dx) Social History [...] Description 11/05/2024 4:00 PM EDT Office Visit [facility] [address] [place] [address] Handy Elias MD [address] [place] [address] 11/09/2024 2:30 PM EDT Telemedicine [facility] [address] [place] [address] Tessa Cox RN [address] [place] [address] Scheduled Referrals Name Type Priority Associated Diagnoses Orde r Schedule Referral to ENT Outpatient Referral Routine Other chronic sinusitis Expected: 03/25/2024 (Approximate), Expires: 03/25/2025 documented as of this encounter Visit Diagnoses Diagnosis Other chronic sinusitis- Primary documented in this encounter Care Teams Economic Analysis Director Relationship Specialty Start Date End Date Handy Elias MD [address] [place] [address] PCP - General Internal Medicine 11/17/12 documented as of this encounter
--- OUTSIDE RECORDS SUMMARY | 2024-09-17 12:44 | XMS_ITS | Data Portability ---
Author Organization [place] - [facility] Formerly [facility], Allergy Address [address] [place] [address] Assessment Encounter Date Assessment Date Assessment LastModified [...] Notes:aware he is back to being monthly [email or web address] Not available 04/22/2024 13:45:24 05/12/2024 05/12/2024 Visit With: Karoline Kelly RN Use of Antihistamine s: No If yes: Vial Test Yes Change in medications: No If yes Increase in asthma symptoms If yes, inhaler use: Reaction to last injections: No If yes: Allergy Symptoms: Other: Missed: Dose Aware of Vial Test Notes: [email or web address] Not available 05/12/2024 14:45:01 07/07/2024 07/07/2024 Visit [...] Dose Aware of Vial Test Aware: Notes: [email or web address] Not available 08/14/2024 14:02:49 Plan of Treatment Reminders Order Date Submit Date Provider Last Modified By Organization Details Last Modified Time Details Appointments [facility] hed- Allergy f-up 6mon 2024 01:30P M [...] Name and Address Organization Details Recorded Time Acute pharyngit is [id number] Active 2013 Pharyngiti s, acute; CMS Risk: low risk [facility] Treatment: new problem (to examiner): additional workup planned No te: Date Diagnosed: 12/16/2013 4:30 PM (462) Not Available [facility] 4 02:47:57 Cough 56494247 Active 2016 Cough; Note: Date Diagnosed: 03/23/2016 4:25 PM (R05) Not Available [facility] 4 02:47:53 Nasal congestio n 60926484 Active 2016 Nasal congestion ; Note: Date Diagnosed: 03/23/2016 4:25 PM (R09.81) Not Available [facility] 4 02:47:57 Snoring 30454147 Active 2016 Snoring; Note: Date Diagnosed: 08/23/2016 4:44 PM (R06.83) Not Available [facility] 4 02:47:57 Hypertrop hy of tonsils 11485034 Active 2016 Hypertroph y of tonsils; Note: Date Diagnosed: 08/23/2016 4:50 PM (J35.1) Not Available [facility] 4 02:47:54 Simple obesity 676058926 Active 2016 Other obesity due to excess calories; Note: Date Diagnosed: 08/23/2016 4:44 PM (E66.09) Not Available [facility] 4 02:47:56 Obstructi ve sleep apnea syndrome 93867379 Active 2016 Obstructiv e sleep apnea (adult) (pediatric ); Note: Date Diagnosed: 08/23/2016 4:44 PM (G47.33) Not Available [facility] 4 02:47:53 Acute sinusitis 75726513 Active 2016 Acute sinusitis, unspecifie d; Note: Date Diagnosed: 02/07/2017 3:59 PM (J01.90) Not Available [facility] 4 02:47:58 Posterior rhinorrhe a 76952513 Active 2016 Postnasal drip; Note: Date Diagnosed: 02/07/2017 3:59 PM (R09.82) Not Available [facility] 4 02:47:58 Abnormal auditory perceptio n 07176995 Active 2017 Other abnormal auditory perception s, bilateral; Note: Date Diagnosed: 09/02/2017 4:53 PM (H93.293) Not Available [facility] 4 02:47:53 Sensorine ural hearing loss of bilateral ears 749589601 Active 2017 Sensorineu ral hearing loss, bilateral; Note: Date Diagnosed: 09/02/2017 5:33 PM (H90.3) Not Available [facility] 4 02:47:51 Acute sialoaden itis 541888375 Active 2021 Acute sialoadeni tis; Note: Date Diagnosed: 01/23/2022 3:21 PM (K11.21) Not Available [facility] 4 02:47:55 Allergic rhinitis caused by pollen 74216131 Active 2022 Allergic rhinitis due to pollen; Note: Date Diagnosed: 12/18/2022 3:52 PM (J30.1) Allergic rhinitis due to pollen; Note: Date Diagnosed: 04/19/2021 1:28 PM (J30.1) ; Start Date : 04/19/2021 Not Available [facility] 02:47:55 Allergic rhinitis 18134501 Active 2023 Allergic rhinitis: Due to other [...] Not Available [facility] 01:08:11 Perennial allergic rhinitis 273623001 Active [address] [facility],[place] [address], [place], [address] , [facility] - [facility] [place] 14:51:26 Chronic sinusitis 80764446 Active 2024 ESSIE PLEITEZ PA-C [address] [facility] [address] [facility], [place], [address] , [facility] - [facility] [place] 16:05:25 Problem Notes None recorded. Procedures Surgical History Date Name Laterality Status Provider Name and Address Organization Details Recorded Time 08/15/19 25 Allergy Immunotherapy Injections completed YOANNA SAINZ [address] [facility] [address] [facility], [place], [address], [place] - [facility] [place] 08/14/2024 14:03:05 07/08/19 25 Allergy Immunotherapy Injections completed YOANNA POTTS [address] [facility] [place],[address], [address], [place] - [facility] 07/07/2024 15:12:46 05/13/19 25 Allergy Immunotherapy Injections completed YOANNA SAINZ [address] [facility] [address],[address] [address], [place], [address], [place] [facility] [place] 05/12/2024 14:44:23 04/22/19 25 Allergy Immunotherapy Injections completed YOANNA SAINZ [address] [facility] [place],[address] [place] [address], [address], [facility] - [facility] [place] 04/22/2024 13:45:00 04/15/19 25 Allergy Immunotherapy Injections completed YOANNA SAINZ 100 [facility],[place] [address], [place], [address], [facility] - [facility] [place] 04/15/2024 14:55:54 04/15/19 25 NasalEndoscopy_DP completed YUNIEL DONALD MD [address] [facility] [place],[address], [address], [facility] - [facility] [place] 04/15/2024 14:43:26 04/09/19 25 Allergy Immunotherapy Injections completed GUY NUNN RMA [address] [facility] [place],[address] [address] [place] [address], [address], [place] - [facility] [place] [place] 04/09/2024 15:24:18 04/03/19 25 Allergy Immunotherapy Injections completed YOANNA SAINZ [address], [place], [address], [place] [facility] [place] [place] 04/03/2024 13:31:44 03/27/19 25 Allergy Immunotherapy Injections completed KAROLINE KELLY RN [address], [place], [address], [place] [facility] [place] 03/27/2024 13:20:20 03/13/19 25 Allergy Immunotherapy Injections completed GUY NUNN, RMA [address], [place], [address], [place] [facility] [place] [place] 03/13/2024 14:51:01 02/26/19 25 Allergy Immunotherapy Injections completed GUY NUNN RMA [address] [facility], [place], [address], [place] [facility] 02/27/2024 16:07:25 02/26/19 25 JMSNasal/Sinus Endoscopy completed ESSIE PLEITEZ PA-C [address] [facility] [facility], [place], [address], [place] [facility] [place] [place] 02/27/2024 16:37:51 02/17/20 24 Allergy Immunotherapy Injections completed KAROLINE KELLY RN [address] [facility] [address] [place] [address], [address], [place] [facility] 02/17/2024 14:48:11 10/16/19 24 Allergy Immunotherapy Injections completed YOANNA SAINZ [address] [facility], [place], [address], [place] [facility] [place] 10/16/2023 16:51:03 09/25/19 24 Allergy Immunotherapy Injections completed KAROLINE KELLY RN [address] [facility] [address] [place] [address], [address], [place] [facility] [place] 09/25/2023 11:18:43 08/13/19 24 Allergy Immunotherapy Injections completed YOANNA SAINZ [address] [facility], [place], [address], [place] [facility] 08/13/2023 15:02:29 07/18/19 24 Allergy Immunotherapy Injections completed COOKIE BLACKWELL, [facility] 100 [facility],[place] [address], [place], [address], [place] [facility] 07/18/2023 14:51:59 Imaging Results None [...] by mouth 02/26 completed Medicati on ID: [id number] D uration Value: 12 Brand Name: predniso [...] mg tablet 02/26 completed Medicati on ID: [id number] D uration Value: 30 Brand Name: tizanidi [...] mg tablet 03/16 completed Medicati on ID: [id number] D uration Value: 30 Reason: () Brand Name: citalopr am Send Method: E-Prescr ibed Sub s Allowed: subs OK Speci al Instruct ion: TAKE 1 TABLET BY MOUTH EVERY DAY Medi cationGe nericNam e: citalopr am Not Available Not Available Not Available Anafranil 50 mg capsule 02/26 completed Medicati on ID: 805502 B rand Name: Anafrani l Send Method: [...] mg) tablet 2019 active Medicati on ID: 209000 B rand Name: Calcium 600 Send Method: E-Prescr ibed Sub s Allowed: subs [place] [facility] Cal[facility] 600 Not Available [...] No t Available Nasonex 50 mcg/actua tion [place] 2 spray into both nostrils 02/26 completed Medicati on ID: 155178 D uration Value: 30 Prescri bed By [...] mg tablet 03/16 completed Medicati on ID: 334945 D uration Value: 30 Reason: () Brand [...] 2 puff 2021 active Medicati on ID: 652332 D uration Value: 30 Prescri bed By [...] bromide 21 mcg (0.03 %) nasal spray [place] 2 spray into both nostrils three times a day 02/26 completed Medicati on ID: [id number] D uration Value: 30 Brand Name: ipratrop ium bromide Send Method: E-Prescr ibed Sub s Allowed: subs OK Speci al Instruct ion: 2 sprays in each nostril 1-3 times a day Medi cationGe nericNam e: ipratrop ium bromide Not Available Not Available Not Available finasteri de 5 mg tablet 03/16 completed Medicati on ID: 158367 D uration Value: 30 Reason: () Brand [...] by mouth 02/26 completed Medicati on ID: 520077 D uration Value: 7 Prescri bed By [...] by mouth 02/26 completed Medicati on ID: 421890 D uration Value: 10 Prescri bed By Name: DAYANNA Liang nd Name: guaifene sin Send Method: E-Prescr ibed Sub s Allowed: subs OK Medic ationGen ericName : guaifene sin Not Available Not Available Not Available oxymetazo line 0.05 % nasal spray 03/16 completed Medicati on ID: [id number] P rescribe d By Name: DAYANNA Liang [...] extended release 10/24 completed Medicati on ID: 068276 B rand Name: bupropio n HCl Send Method: E-Prescr ibed Sub s Allowed: subs OK Speci al Instruct ion: TAKE 1 TABLET BY MOUTH EVERY MORNING Medicati onGeneri cName: bupropio n HCl Not Available Not Available Not Available Fosamax Plus D 70 mg-2,800 unit tablet 02/26 completed Medicati on ID: 230481 B rand Name: Fosamax Plus D Send [...] mg capsule 10/24 completed Medicati on ID: 855724 B rand Name: CoQ-10 S end Method: [...] Available B12 09/13 completed Medicati on ID: 435917 B rand Name: b12 Send Method: E-Prescr ibed Sub s Allowed: subs OK Medic ationGen ericName : b12 Not Available Not Available Not Available Dulera 200 mcg-5 mcg/actua tion HFA aerosol inhaler 2 puff 02/26 completed Medicati on ID: 464813 D uration Value: 90 Brand Name: Dulera [...] Updated DateTime 04/15/2024 180.34 cm 37 kg/m2 513190.98 g Ector Pedraza [place] - [facility] 04/15/2024 14:10:22 Social History None recorded. Functional Status None recorded. Mental Status None recorded. Family History Nothing Reported. Medical History Condition Response Hypertension Y High Cholesterol Y GERD/Reflux Y Past Encounters Encounter ID Performer Location Encounter Start Date Encounter Closed Date Diagnosis/Indication Diagnosis SNOMED-CT Code Diagnosis ICD10 Code Diagnosis Note [id number] YOANNA SA[address]Z Allergy 100 [facility] 100 [facility] [place] BRITO [address] 07/18/2023 14:48:19 07/18/2023 15:28:24 Perennial allergic rhinitis 064070541 J30.89 [id number] SHAAN NORMAN PA-C [facility] - [facility] [address] [facility] [place] [address] 07/23/2023 13:05:54 07/23/2023 13:46:22 Allergic rhinitis 12091452 J30.9 Nasal congestion 8348831 0 R09.81 Posterior rhinorrhea 758 80672 R09.82 [id number] COOKIE BLACKWELL [facility] Allergy [address] [place] [address] 100 [facility], [place] 9 08/13/2023 14:55:05 08/13/2023 15:27:43 Perennial allergic rhinitis 051387443 J30.89 [id number] KAROLINE KELLY RN Allergy [address] [place] [address], [place] 9 09/25/2023 10:48:16 09/25/2023 11:19:33 Perennial allergic rhinitis 749324834 J30.89 [id number] COOKIE BLACKWELL [facility] Allergy [address] [place] [address], [place] 9 10/16/2023 15:40:04 10/16/2023 17:27:25 Perennial allergic rhinitis 622074223 J30.89 [id number] KAROLINE KELLY RN Allergy [address] [place] [address], [place] [address] 02/17/2024 13:50:57 02/17/2024 14:49:34 Perennial allergic rhinitis 854742744 J30.89 [id number] ESSIE PLEITEZ PA-C [facility] - [facility] ld [address] [place] [address], [place] [address] 02/27/2024 15:21:49 02/27/2024 16:04:55 Chronic sinusitis 04936368 J32.9 Perennial allergic rhinitis 989857169 J30.89 [id number] GUY DUARTE, [facility] Allergy [address] [place] [address],[facility] [address] [place] [address] 02/27/2024 16:06:49 02/27/2024 16:07:58 Perennial allergic rhinitis 758801783 J30.89 [id number] GUY DUARTE, [facility] Allergy [address] [place] [address] ite [address] [place] [address] 03/13/2024 14:34:16 03/13/2024 14:51:30 Perennial allergic rhinitis 258815595 J30.89 [id number] COOKIE BLACKWELL [facility] Allergy [address] [place] [address] [address] [place] [address] 03/27/2024 13:00:24 03/27/2024 13:21:07 Perennial allergic rhinitis 976361025 J30.89 [id number] [facility] Allergy [address] [place] [address] [address] [place] [address] 04/03/2024 12:51:55 04/03/2024 13:32:07 Perennial allergic rhinitis 482441685 J30.89 [id number] [facility] Allergy [address] [place] [address] [address] [place] [address] 04/09/2024 14:46:04 04/09/2024 15:25:13 Perennial allergic rhinitis 961587621 J30.89 [id number] YUNIEL DONALD MD [facility] [address] [place] [address], [place] [address] 04/15/2024 13:59:30 04/15/2024 14:47:16 Allergic rhinitis 88063018 J30.9 [id number] [address] [place] [address] 04/15/2024 14:54:56 04/15/2024 14:56:12 Perennial allergic rhinitis 883477284 J30.89 [id number] COOKIE BLACKWELL [facility] Allergy [address] [place], [place] [address] [address] [place] [address] 04/22/2024 13:22:05 04/22/2024 14:29:58 Perennial allergic rhinitis 264204846 J30.89 [id number] KAROLINE KELLY RN Allergy [address] [place], [place] [address] [address] [place] [address] 05/12/2024 14:43:08 05/12/2024 14:45:26 Perennial allergic rhinitis 292138647 J30.89 [id number] [facility] Allergy [address] [place] [address] ite 100 [place] [address] 07/07/2024 14:56:36 07/07/2024 15:15:32 Perennial allergic rhinitis 540987152 J30.89 [id number] COOKIE BLACKWELL, RMA Allergy 100 [facility],[place] ite 100 [place] [address] 08/14/2024 13:53:02 08/14/2024 14:03:20 Perennial allergic rhinitis 587234516 J30.89 Health Concerns Section Related Observation LastModified by Organization Detai ls LastModified Time None Recorded Concern Status LastModified by Organization Details LastModified Time None Recorded Advance Directives Directive None Recorded Payers Insurance Date Sequence Insurance Name Policy Number Policy Aranda Covered Member ID Aranda Member ID Guarantor Name 08/14/2024 2 [place] [id number] Henri Espino [id number] Henri Espino 08/14/2024 1 [place] B[place] [facility] [employer] Henri Espino [id number] Henri Espino Notes Date Note Type [...] resume monthly 03/23/24 [facility], smal retention cyst right posterior ethmoid sinus describes sig PND volumePulm [facility] [place] YUNIEL DONALD MD 100 [facility],[address], [place], [address], [facility] - [facility] 04/15/2024 14:45:10
--- OUTSIDE RECORDS SUMMARY | 2024-09-17 12:44 | XMS_ITS | Encounter Summary ---
Author Organization [facility] Address [address] [place] [address] Phone Care Team Providers Care Mill Work Name Role Phone Handy Elias MD Primary Care Provider [phone] Encounter Details Date Type Department Care Team (Late st Contact Info) Description 2022 Telephone [facility] [address] [place] [address] Christie Leone Social History Tobacco [...] on filedocumented in this encounter Care Teams Mill Work Relationship Specialty Start Date End Date Handy Elias MD PCP - General Internal Medicine 10/19/20 documented as of this encounter
== END 2024-09-17 12:11 | disposition home or self-care (01) ==
LOC: HO.LNP 12:10
PROVIDERS: Visit Provider Hospitalist
DX: R91.1 Solitary pulmonary nodule (principal); J40 Bronchitis, not specified as acute or chronic; J98.11 Atelectasis
CPT/HCPCS: 87070; 87205

== ENCOUNTER 2024-09-21 11:58 | Outpatient (REF) | payer MEDICARE, SELFPAY ==
--- OUTSIDE RECORDS SUMMARY | 2022-01-26 01:00 | XMS_ITS | Encounter Summary ---
Author Organization [facility] Address [address] [place] [address] Phone Care Team Providers Care Venetian Blind Mechanic Name Role Phone Handy Elias MD Primary Care Pr ovider Encounter Details Date Type Department Care Team (Late st Contact Info) Description 01/26/2022 Hospital Encounter [facility] [address] [place] [phone] Kenyetta Rubio MD [address] [place] [phone] Maryan@ [email or web address] Social History Tobacco Use Types [...] on filedocumented in this encounter Care Teams Venetian Blind Mechanic Relationship Specialty Start Date End Date Handy Elias MD PCP - General Internal Medicine 08/11/20 documented as of this encounter Additional Source Comments The information contained in this document represents components of the legal health record. It is not the complete legal health record.[facility]
--- OUTSIDE RECORDS SUMMARY | 2024-09-21 13:04 | XMS_ITS | Data Portability ---
Author Organization MD - [facility], Allergy Address [address] [place] [phone] Assessment Encounter Date Assessment Date Assessment LastModified by Organization Details LastModified Time 04/15/2024 04/15/2024 Visit With: Cookie Blackwell Use of Antihistamine s: No If yes: Vial Test Change in medications: No If yes Increase in asthma symptoms If yes, inhaler use: Reaction to last injections: No If yes: Allergy Symptoms: Other: Missed: Dose Aware of Vial Test Notes: [email or web address] Not available 04/15/2024 14:55:58 04/22/2024 04/22/2024 Visit With: Cookie Blackwell Use of Antihistamine s: No If yes: Vial Test Change in medications: No If yes Increase in asthma symptoms If yes, inhaler use: Reaction to last injections: No If yes: Allergy Symptoms: Other: Missed: Dose Aware of Vial Test Yes Notes:aware he is back to being monthly Not available 04/22/2024 13:45:24 05/12/2024 05/12/2024 Visit With: Karoline Kelly RN Use of Antihistamine s: No If yes: Vial Test Yes Change in medications: No If yes Increase in asthma symptoms If yes, inhaler use: Reaction to last injections: No If yes: Allergy Symptoms: Other: Missed: Dose Aware of Vial Test Notes: [email or web address] Not available 05/12/2024 14:45:01 07/07/2024 07/07/2024 Visit [...] Dose Aware of Vial Test Aware: Notes: [email or web address] Not available 08/14/2024 14:02:49 Plan of Treatment Reminders Order Date Submit Date Provider Last Modified By Organization Details Last Modified Time Details Appointments [facility]- Allergy f-up 6mon 2024 01:30P M [...] Organization Details Recorded Time Acute pharyngit is 156881039 Active 2013 Pharyngiti s, acute; CMS Risk: low risk [facility] Treatment: new problem (to examiner): additional workup planned No te: Date Diagnosed: 12/16/2013 4:30 PM (462) Not Available [facility] 4 02:47:57 Cough 44870288 Active 2016 Cough; Note: Date Diagnosed: 03/23/2016 4:25 PM (R05) Not Available [facility] 4 02:47:53 Nasal congestio n 64446191 Active 2016 Nasal congestion ; Note: Date Diagnosed: 03/23/2016 4:25 PM (R09.81) Not Available [facility] 4 02:47:57 Snoring 39372443 Active 2016 Snoring; Note: Date Diagnosed: 08/23/2016 4:44 PM (R06.83) Not Available [facility] 4 02:47:57 Hypertrop hy of tonsils 13544642 Active 2016 Hypertroph y of tonsils; Note: Date Diagnosed: 08/23/2016 4:50 PM (J35.1) Not Available [facility] 4 02:47:54 Simple obesity 877208897 Active 2016 Other obesity due to excess calories; Note: Date Diagnosed: 08/23/2016 4:44 PM (E66.09) Not Available [facility] 4 02:47:56 Obstructi ve sleep apnea syndrome 21185739 Active 2016 Obstructiv e sleep apnea (adult) (pediatric ); Note: Date Diagnosed: 08/23/2016 4:44 PM (G47.33) Not Available [facility] 4 02:47:53 Acute sinusitis 31762753 Active 2016 Acute sinusitis, unspecifie d; Note: Date Diagnosed: 02/07/2017 3:59 PM (J01.90) Not Available [facility] 4 02:47:58 Posterior rhinorrhe a 29580193 Active 2016 Postnasal drip; Note: Date Diagnosed: 02/07/2017 3:59 PM (R09.82) Not Available [facility] 4 02:47:58 Abnormal auditory perceptio n 09358018 Active 2017 Other abnormal auditory perception s, bilateral; Note: Date Diagnosed: 09/02/2017 4:53 PM (H93.293) Not Available [facility] 4 02:47:53 Sensorine ural hearing loss of bilateral ears 110481447 Active 2017 Sensorineu ral hearing loss, bilateral; Note: Date Diagnosed: 09/02/2017 5:33 PM (H90.3) Not Available [facility] 4 02:47:51 Acute sialoaden itis 357427132 Active 2021 Acute sialoadeni tis; Note: Date Diagnosed: 01/23/2022 3:21 PM (K11.21) Not Available [facility] 4 02:47:55 Allergic rhinitis caused by pollen 87355137 Active 2022 Allergic rhinitis due to pollen; Note: Date Diagnosed: 12/18/2022 3:52 PM (J30.1) Allergic rhinitis due to pollen; Note: Date Diagnosed: 04/19/2021 1:28 PM (J30.1) ; Start Date : 04/19/2021 Not Available [facility] 02:47:55 Allergic rhinitis 39135866 Active 2023 Allergic rhinitis: Due to other [...] Not Available [facility] 01:08:11 Perennial allergic rhinitis 308550978 Active 2023 YOANNA SAINZ [address] [facility],[place] [address], [place], [address] , [facility] - [facility] [place] 14:51:26 Chronic sinusitis 42935049 Active 2024 ESSIE PLEITEZ PA-C [address] [facility] [address] [place],[address] [facility], [place], [address] , [facility] - [facility] [place] 16:05:25 Problem Notes None recorded. Procedures Surgical History Date Name Laterality Status Provider Name and Address Organization Details Recorded Time 08/15/19 25 Allergy Immunotherapy Injections completed YOANNA SAINZ 100 [facility] [place] [place],[address] [facility], [place], [address], [place] - [facility] 08/14/2024 14:03:05 07/08/19 25 Allergy Immunotherapy Injections completed YOANNA POTTS 100 [facility] [place],[address], [address], [place] - [facility] 07/07/2024 15:12:46 05/13/19 25 Allergy Immunotherapy Injections completed YOANNA SAINZ 100 [facility] [place] [place] [address], [place], [address], [place] - [facility] 05/12/2024 14:44:23 04/22/19 25 Allergy Immunotherapy Injections completed YOANNA SAINZ 100 [facility] [place],[address] [place] [address], [address], [facility] - [facility] [place] 04/22/2024 13:45:00 04/15/19 25 Allergy Immunotherapy Injections completed YOANNA SAINZ 100 [facility],[place] [address], [place], [address], [facility] - [facility] [place] 04/15/2024 14:55:54 04/15/19 25 NasalEndoscopy_DP completed YUNIEL DONALD MD 100 [facility] [place],[address], [address], [facility] - [facility] [place] 04/15/2024 14:43:26 04/09/19 25 Allergy Immunotherapy Injections completed GUY NUNN RMA 100 [facility] [place],JMAE [address] [place] [address], [address], [place] - [facility] 04/09/2024 15:24:18 04/03/19 25 Allergy Immunotherapy Injections completed YOANNA SAINZ [address], [place], [address], [place] [facility] 04/03/2024 13:31:44 03/27/19 25 Allergy Immunotherapy Injections completed KAROLINE KELLY RN [address], [place], [address], [place] [facility] 03/27/2024 13:20:20 03/13/19 25 Allergy Immunotherapy Injections completed GUY NUNN, RMA [address], [place], [address], [place] - [facility] 03/13/2024 14:51:01 02/26/19 25 Allergy Immunotherapy Injections completed GUY NUNN RMA [address] [facility] [address], [place], [address], [place] [facility] 02/27/2024 16:07:25 02/26/19 25 JMSNasal/Sinus Endoscopy completed ESSIE PLEITEZ PA-C [address] [facility] [address] [facility], [place], [address], [place] - [facility] 02/27/2024 16:37:51 02/17/20 24 Allergy Immunotherapy Injections completed KAROLINE KELLY RN [address] [facility] [address] [address] [place] [address], [address], [place] - [facility] 02/17/2024 14:48:11 10/16/19 24 Allergy Immunotherapy Injections completed YOANNA SAINZ [address] [facility] [address], [place], [address], [place] - [facility] 10/16/2023 16:51:03 09/25/19 24 Allergy Immunotherapy Injections completed KAROLINE KELLY RN [address] [facility] [address] [address] [place] [address], [address], [place] - [facility] 09/25/2023 11:18:43 08/13/19 24 Allergy Immunotherapy Injections completed YOANNA SAINZ [address] [facility] [address], [place], [address], [place] - [facility] 08/13/2023 15:02:29 07/18/19 24 Allergy Immunotherapy Injections completed [facility] 100 [facility],[place] [address], [place], [address], [place] [facility] 07/18/2023 14:51:59 Imaging Results None recorded. Procedure [...] by mouth 02/26 completed Medicati on ID: [id number] D uration Value: 12 Brand Name: predniso [...] mg tablet 02/26 completed Medicati on ID: [id number] D uration Value: 30 Brand Name: tizanidi [...] mg tablet 03/16 completed Medicati on ID: [id number] D uration Value: 30 Reason: () Brand Name: citalopr am Send Method: E-Prescr ibed Sub s Allowed: subs OK Speci al Instruct ion: TAKE 1 TABLET BY MOUTH EVERY DAY Medi cationGe nericNam e: citalopr am Not Available Not Available Not Available Anafranil 50 mg capsule 02/26 completed Medicati on ID: 486775 B rand Name: Anafrani l Send Method: [...] mg) tablet 2019 active Medicati on ID: 741228 B rand Name: Calcium 600 Send Method: E-Prescr ibed Sub s Allowed: subs OK [facility] eric[facility] : Calcium 600 Not Available [...] No t Available Nasonex 50 mcg/actua tion [place] 2 spray into both nostrils 02/26 completed Medicati on ID: [id number] D uration Value: 30 Prescri bed By [...] mg tablet 03/16 completed Medicati on ID: 963439 D uration Value: 30 Reason: () Brand [...] 2 puff 2021 active Medicati on ID: [id number] D uration Value: 30 Prescri bed By [...] bromide 21 mcg (0.03 %) nasal spray [place] 2 spray into both nostrils three times a day 02/26 completed Medicati on ID: [id number] D uration Value: 30 Brand Name: ipratrop ium bromide Send Method: E-Prescr ibed Sub s Allowed: subs OK Speci al Instruct ion: 2 sprays in each nostril 1-3 times a day Medi cationGe nericNam e: ipratrop ium bromide Not Available Not Available Not Available finasteri de 5 mg tablet 03/16 completed Medicati on ID: [id number] D uration Value: 30 Reason: () Brand [...] by mouth 02/26 completed Medicati on ID: 648545 D uration Value: 7 Prescri bed By [...] by mouth 02/26 completed Medicati on ID: 571267 D uration Value: 10 Prescri bed By Name: DAYANNA Liang nd Name: guaifene sin Send Method: E-Prescr ibed Sub s Allowed: subs OK Medic ationGen ericName : guaifene sin Not Available Not Available Not Available oxymetazo line 0.05 % nasal spray 03/16 completed Medicati on ID: [id number] P rescribe d By Name: DAYANNA Liang [...] extended release 10/24 completed Medicati on ID: [id number] B rand Name: bupropio n HCl Send Method: E-Prescr ibed Sub s Allowed: subs OK Speci al Instruct ion: TAKE 1 TABLET BY MOUTH EVERY MORNING Medicati onGeneri cName: bupropio n HCl Not Available Not Available Not Available Fosamax Plus D 70 mg-2,800 unit tablet 02/26 completed Medicati on ID: 883613 B rand Name: Fosamax Plus D Send [...] mg capsule 10/24 completed Medicati on ID: 270282 B rand Name: CoQ-10 S end Method: [...] Available B12 09/13 completed Medicati on ID: [id number] B rand Name: b12 Send Method: E-Prescr ibed Sub s Allowed: subs OK Medic ationGen ericName : b12 Not Available Not Available Not Available Dulera 200 mcg-5 mcg/actua tion HFA aerosol inhaler 2 puff 02/26 completed Medicati on ID: [id number] D uration Value: 90 Brand Name: Dulera [...] Updated DateTime 04/15/2024 180.34 cm 37 kg/m2 233180.98 g Ector Pedraza [place] - [facility] 04/15/2024 14:10:22 Social History None recorded. Functional Status None recorded. Mental Status None recorded. Family History Nothing Reported. Medical History Condition Response Hypertension Y GERD/Reflux Y High Cholesterol Y Past Encounters Encounter ID Performer Location Encounter Start Date Encounter Closed Date Diagnosis/Indication Diagnosis SNOMED-CT Code Diagnosis ICD10 Code Diagnosis Note [id number] YOANNA SAINZ Allergy [address] [facility] 100 [facility] [place] [address] 07/18/2023 14:48:19 07/18/2023 15:28:24 Perennial allergic rhinitis 710564113 J30.89 [id number] SHAAN NORMAN PA-C [facility] - [place] [address] [place] [address] 07/23/2023 13:05:54 07/23/2023 13:46:22 Allergic rhinitis 36767306 J30.9 Nasal congestion 6942725 0 R09.81 Posterior rhinorrhea 758 20186 R09.82 [id number] [facility] Allergy [address] [place] [address] 100 [facility], [place] 9 08/13/2023 14:55:05 08/13/2023 15:27:43 Perennial allergic rhinitis 234809013 J30.89 [id number] KAROLINE KELLY RN Allergy [address] [place] [address], [place] 9 09/25/2023 10:48:16 09/25/2023 11:19:33 Perennial allergic rhinitis 406339833 J30.89 [id number] [facility] Allergy [address] [place] [address], [place] 9 10/16/2023 15:40:04 10/16/2023 17:27:25 Perennial allergic rhinitis 552049406 J30.89 [id number] KAROLINE KELLY RN Allergy [address] [place] [address], [place] [address] 02/17/2024 13:50:57 02/17/2024 14:49:34 Perennial allergic rhinitis 584237715 J30.89 [id number] ESSIE PLEITEZ PA-C [facility] - [facility] ld [address] [place] [address], [place] [address] 02/27/2024 15:21:49 02/27/2024 16:04:55 Chronic sinusitis 57447359 J32.9 Perennial allergic rhinitis 721823999 J30.89 [id number] [facility] Allergy [address] [place] [address],[facility] [address] [place] [address] 02/27/2024 16:06:49 02/27/2024 16:07:58 Perennial allergic rhinitis 232044976 J30.89 [id number] [facility] Allergy [address] [place] [address] ite [address] [place] [address] 03/13/2024 14:34:16 03/13/2024 14:51:30 Perennial allergic rhinitis 904428161 J30.89 [id number] [facility] Allergy [address] [place] [address] [address] [place] [address] 03/27/2024 13:00:24 03/27/2024 13:21:07 Perennial allergic rhinitis 333600784 J30.89 [id number] [facility] Allergy [address] [place] [address] [address] [place] [address] 04/03/2024 12:51:55 04/03/2024 13:32:07 Perennial allergic rhinitis 391135848 J30.89 [id number] [facility] Allergy [address] [place] [address] [address] [place] [address] 04/09/2024 14:46:04 04/09/2024 15:25:13 Perennial allergic rhinitis 314369247 J30.89 [id number] YUNIEL DONALD MD [facility] [address] [place] [address], [place] [address] 04/15/2024 13:59:30 04/15/2024 14:47:16 Allergic rhinitis 94846729 J30.9 [id number] [facility] [place] [address] 04/15/2024 14:54:56 04/15/2024 14:56:12 Perennial allergic rhinitis 447694574 J30.89 [id number] [facility] Allergy [address] [place], [place] [address] [address] [place] [address] 04/22/2024 13:22:05 04/22/2024 14:29:58 Perennial allergic rhinitis 141812581 J30.89 [id number] KAROLINE KELLY RN Allergy [address] [place], [place] [address] [address] [place] [address] 05/12/2024 14:43:08 05/12/2024 14:45:26 Perennial allergic rhinitis 681528491 J30.89 [id number] [facility] Allergy [address] [place] [address] ite 100 [facility] [address] 07/07/2024 14:56:36 07/07/2024 15:15:32 Perennial allergic rhinitis 929830914 J30.89 [id number] COOKIE RISHI, A Allergy 100 [facility], it[place] 100 [facility] [address] 08/14/2024 13:53:02 08/14/2024 14:03:20 Perennial allergic rhinitis 232633800 J30.89 Health Concerns Section Related Observation LastModified by Organization Detai ls LastModified Time None Recorded Concern Status LastModified by Organization Details LastModified Time None Recorded Advance Directives Directive None Recorded Payers Insurance Date Sequence Insurance Name Policy Number Policy Aranda Covered Member ID Aranda Member ID Guarantor Name 08/14/2024 2 [place] [id number] Henri Espino [id number] Henri Espino 08/14/2024 1 [place] [employer] [employer] Henri Espino [id number] Henri Epsino
--- OUTSIDE RECORDS SUMMARY | 2024-09-21 13:04 | XMS_ITS | Encounter Summary ---
Author Organization [facility] Address [address] [place] [address] Phone Care Team Providers Care Registered Dental Hygienist Name Role Phone Handy Elias MD Primary Care Provider [phone] Encounter Details Date Type Department Care Team (Late st Contact Info) Description 2022 Telephone [facility] [address] [place] [address] Christie Leone Social History Tobacco [...] filedocumented in this encounter Care Teams Registered Dental Hygienist Relationship Specialty Start Date End Date Handy Elias MD PCP - General Internal Medicine 10/19/20 documented as of this encounter
--- OUTSIDE RECORDS SUMMARY | 2024-09-21 13:04 | XMS_ITS | Encounter Summary ---
Author Organization [employer] Address [address] [place] [address] Care Team Providers Care Casino Cashier Name Role Phone Handy Elias MD Primary Care Provider [phone] Reason for Referral * Consultation (Routine) - Closed Specialty Diagnoses / Procedures Referred By Maurcie weaver Referred To Contact Otolaryngology Diagnoses Other chronic sinusitis Handy Elias MD [address] [place] [address] Phone: tel: fax: [facility] [address] Phone: tel: fax: Referral ID Status Reason Start Date Expiration Date V isits Requested Visits Authorized [id number] Closed Specialty Services Required 03/25/2024 03/25/2025 1 1 Encounter Details Date Type Department Care Team ([facility] st Contact Info) Description 03/25/[address] [facility] [address] [place], [place] [phone] Handy Elias MD [address] [place], [place] [phone] Other chronic sinusitis (Primary Dx) Social History [...] Description 11/05/2024 4:00 PM EDT Office Visit [facility] [address] [place] [address] Handy Elias MD [address] [place] [address] 11/09/2024 2:30 PM EDT Telemedicine [facility] [address] [place] [address] Tessa Cox RN [address] [place] [address] Scheduled Referrals Name Type Priority Associated Diagnoses Orde r Schedule Referral to ENT Outpatient Referral Routine Other chronic sinusitis Expected: 03/25/2024 (Approximate), Expires: 03/25/2025 documented as of this encounter Visit Diagnoses Diagnosis Other chronic sinusitis- Primary documented in this encounter Care Teams Casino Cashier Relationship Specialty Start Date End Date Handy Elias MD [address] [place] [address] PCP - General Internal Medicine 11/17/12 documented as of this encounter
== END 2024-09-21 11:59 | disposition home or self-care (01) ==
LOC: HO.LNP 11:58
PROVIDERS: Visit Provider Hospitalist
DX: R91.1 Solitary pulmonary nodule (principal)
CPT/HCPCS: 87070; 87205

== ENCOUNTER 2024-10-05 12:48 | Day surgery (SDC) | payer MEDICARE, SELFPAY ==
--- OUTSIDE RECORDS SUMMARY | 2022-01-26 01:00 | XMS_ITS | Encounter Summary ---
Author Organization [facility] Address [address] [place] [address] Phone Care Team Providers Care Turf Sales Person Name Role Phone Handy Elias MD Primary Care Pr ovider Encounter Details Date Type Department Care Team (Late st Contact Info) Description 01/26/2022 Hospital Encounter [facility] [address] [place] [phone] Kenyetta Rubio MD [address] [place] [phone] [email or web address] Social History Tobacco Use Types Packs/Day [...] on filedocumented in this encounter Care Teams Turf Sales Person Relationship Specialty Start Date End Date Handy Elias MD PCP - General Internal Medicine 08/11/20 documented as of this encounter Additional Source Comments The information contained in this document represents components of the legal health record. It is not the complete legal health record.[facility]
--- OUTSIDE RECORDS SUMMARY | 2024-09-23 10:01 | XMS_ITS | Encounter Summary ---
Author Organization [facility] Address [address] [place] [address] Phone Care Team Providers Care School Bus Operator Name Role Phone Handy Elias MD Primary Care Provider [phone] Encounter Details Date Type Department Care Team (Late st Contact Info) Description 2022 Telephone [facility] [address] [place] [address] Christie Leone Social History Tobacco [...] on filedocumented in this encounter Care Teams School Bus Operator Relationship Specialty Start Date End Date Handy Elias MD PCP - General Internal Medicine 10/19/20 documented as of this encounter
--- OUTSIDE RECORDS SUMMARY | 2024-09-23 10:01 | XMS_ITS | Encounter Summary ---
Author Organization [employer] Address [address] [place] [address] Care Team Providers Care Master [employer] Name Role Phone Handy Elias MD Primary Care Provider [phone] Reason for Referral * Consultation (Routine) - Closed Specialty Diagnoses / Procedures Referred By Maurice weaver Referred To Contact Otolaryngology Diagnoses Other chronic sinusitis Handy Elias MD [address] [place] [address] Phone: tel: fax: [facility] [address] Phone: tel: fax: Referral ID Status Reason Start Date Expiration Date V isits Requested Visits Authorized [id number] Closed Specialty Services Required 03/25/2024 03/25/2025 1 1 Encounter Details Date Type Department Care Team ([facility] st Contact Info) Description 03/25/2024 Orders Only [facility] [address] [place], [place] [phone] Handy Elias MD [address] [place], [place] [phone] Other chronic sinusitis (Primary Dx) Social History [...] Description 11/05/2024 4:00 PM EDT Office Visit [facility] [address] [place] [address] Handy Elias MD [address] [place] [address] 11/09/2024 2:30 PM EDT Telemedicine [facility] [address] [place] [address] Tessa Cox RN [address] [place] [address] Scheduled Referrals Name Type Priority Associated Diagnoses Orde r Schedule Referral to ENT Outpatient Referral Routine Other chronic sinusitis Expected: 03/25/2024 (Approximate), Expires: 03/25/2025 documented as of this encounter Visit Diagnoses Diagnosis Other chronic sinusitis- Primary documented in this encounter Care Teams Master [employer] Relationship Specialty Start Date End Date Handy Elias MD [address] [place] [address] PCP - General Internal Medicine 11/17/12 documented as of this encounter
[2024-10-01 12:54] VITALS: BMI 36.5
--- NOTE | 2024-10-02 10:03 | HO.ANESPROP2 ---
Documented by User: Virginia Clark NP 10/02/24 10:04 HPI - Anesthesia Eval Consult details Narrative: 64yo M for Bronchoscopy Fiberoptic PMFSH Active Problems Active Problems: All Active Problems Bronchitis (Acute) Weakness (Acute) Chest pain (Acute) Hypertension (Acute ~07/14/12) Atelectasis (Acute) Easy bruisability (Acute) Chronic cough (Acute) Chronic allergic rhinitis (Acute) Hyperlipidemia (Acute) KACI on CPAP (Acute) Asthma-COPD overlap syndrome (Acute) Dyspnea (Acute) Cough (Acute) Asthma (Acute) Sinusitis (Acute) Osteoarthritis of knees, bilateral (Acute) Spondylosis of cervical joint without myelopathy (Acute) Past Medical History Medical History Bronchitis Weakness Chest pain Atelectasis Tobacco dependence syndrome (~01/13/22) Senile hyperkeratosis (~02/21/18) Sciatica (~11/24/12) Osteoporosis (~09/20/17) Obstructive sleep apnea syndrome (~01/04/10) Low back pain (~07/14/12) Hypertension (~07/14/12) Erectile dysfunction (~11/24/12) Hypercholesterolemia (~07/14/12) Chronic kidney disease, stage 3 (~09/22/17) Chronic pain syndrome (~11/20/16) Chronic cough Chronic allergic rhinitis Hyperlipidemia KACI on CPAP Asthma-COPD overlap syndrome Dyspnea Cough Asthma Sinusitis Osteoarthritis of knees, bilateral Spondylosis of cervical joint without myelopathy Family History Family History Father Parkinson disease Mother Sister Obesity Hypertension Surgical History Surgical History History of colonoscopy (~10/16/21) Social History Social History Household Members: Spouse Housing: House Are you a primary childcare center director to a significant other at home: No Do you presently have visiting nurse or other home services: No Patient Tobacco Use Status: Former Tobacco user Tobacco use type: Cigarette Cigarette Packs Per Day: 1 Years Smoked: 30 years Have you been hit, kicked, punched, or otherwise hurt by someone within the past year? If so, by whom?: No Are you DNR?: No Advance Directives: No Advance Directives Information Provided: Yes Poor oral hygiene: No service: No Current occupational status: unemployed Meds Allergies Allergy/AdvReac Type Severity Reaction Status Date / Time Seasonal Allergies Allergy Runny Nose Verified 10/05/24 13:27 Home Medications ?Medication ?Instructions ?Recorded ?Confirmed ?Last Taken ?Type cholecalciferol (vitamin D3) 25 50 mcg PO DAILY 04/26/20 10/05/24 Unknown History mcg (1,000 unit) capsule nebulizers 11/06/21 10/05/24 Unknown History acetaminophen 650 mg 1 tab PO Q8H PRN Pain (Scale Score 03/20/22 10/05/24 Unknown History tablet,extended release 4-6) docusate sodium 100 mg capsule 1 cap PO BID PRN constipation 03/20/22 10/05/24 Unknown History oxycodone 5 mg tablet 1 tab PO Q4-6H PRN severe pain 03/20/22 10/05/24 Unknown History sildenafil 100 mg tablet 100 mg PO DAILY PRN Sexual Activity 03/20/22 10/05/24 Unknown History cyanocobalamin (vitamin B-12) mcg IM 06/05/23 07/30/24 Unknown History 1,000 mcg/mL injection solution omeprazole 20 mg capsule,delayed 20 mg PO DAILY PRN Gastric Reflux 06/05/23 10/05/24 Unknown History release alendronate 70 mg tablet 70 mg PO QWEEK 12/20/23 10/05/24 Unknown History zolpidem 10 mg tablet 10 mg PO BEDTIME PRN Insomnia 12/20/23 10/05/24 Unknown History fluoxetine 20 mg capsule 20 mg PO DAILY 10/05/24 10/05/24 Unknown History Exam Height,Weight and Vital Signs: Height 5 ft 11 in Weight 118.841 kg Pertinent Lab Results Pertinent Lab Results: Laboratory Tests 03/23/24 04/09/24 16:24 13:55 WBC 9.8 Hgb 15.9 Hct 47.7 Plt Count 293 Sodium 140 Potassium 4.1 Chloride 108 Carbon Dioxide 23 BUN 18 H Creatinine 1.26 Assessment and Plan Assessment Anesthesia Assessment: Chart Reviewed Documented by User: Freya Lao MD 10/05/24 13:59 PMFSH Past Medical History Medical History Bronchitis Weakness Chest pain Atelectasis Tobacco dependence syndrome (~01/13/22) Senile hyperkeratosis (~02/21/18) Sciatica (~11/24/12) Osteoporosis (~09/20/17) Obstructive sleep apnea syndrome (~01/04/10) Low back pain (~07/14/12) Hypertension (~07/14/12) Erectile dysfunction (~11/24/12) Hypercholesterolemia (~07/14/12) Chronic kidney disease, stage 3 (~09/22/17) Chronic pain syndrome (~11/20/16) Chronic cough Chronic allergic rhinitis Hyperlipidemia KACI on CPAP Asthma-COPD overlap syndrome Dyspnea Cough Asthma Sinusitis Osteoarthritis of knees, bilateral Spondylosis of cervical joint without myelopathy Family History Family History Father Parkinson disease Mother Sister Obesity Hypertension Family history of problems with anesthesia: No Surgical History Surgical History History of colonoscopy (~10/16/21) History of Problems with Anesthesia: No Social History Social History Household Members: Spouse Housing: House Are you a primary childcare center director to a significant other at home: No Do you presently have visiting nurse or other home services: No Patient Tobacco Use Status: Former Tobacco user Tobacco use type: Cigarette Cigarette Packs Per Day: 1 Years Smoked: 30 years Have you been hit, kicked, punched, or otherwise hurt by someone within the past year? If so, by whom?: No Are you DNR?: No Advance Directives: No Advance Directives Information Provided: Yes Poor oral hygiene: No service: No Current occupational status: unemployed Meds Allergies Allergy/AdvReac Type Severity Reaction Status Date / Time Seasonal Allergies Allergy Runny Nose Verified 10/05/24 13:27 Home Medications ?Medication ?Instructions ?Recorded ?Confirmed ?Last Taken ?Type cholecalciferol (vitamin D3) 25 50 mcg PO DAILY 04/26/20 10/05/24 Unknown History mcg (1,000 unit) capsule nebulizers 11/06/21 10/05/24 Unknown History acetaminophen 650 mg 1 tab PO Q8H PRN Pain (Scale Score 03/20/22 10/05/24 Unknown History tablet,extended release 4-6) docusate sodium 100 mg capsule 1 cap PO BID PRN constipation 03/20/22 10/05/24 Unknown History oxycodone 5 mg tablet 1 tab PO Q4-6H PRN severe pain 03/20/22 10/05/24 Unknown History sildenafil 100 mg tablet 100 mg PO DAILY PRN Sexual Activity 03/20/22 10/05/24 Unknown History cyanocobalamin (vitamin B-12) mcg IM 06/05/23 07/30/24 Unknown History 1,000 mcg/mL injection solution omeprazole 20 mg capsule,delayed 20 mg PO DAILY PRN Gastric Reflux 06/05/23 10/05/24 Unknown History release alendronate 70 mg tablet 70 mg PO QWEEK 12/20/23 10/05/24 Unknown History zolpidem 10 mg tablet 10 mg PO BEDTIME PRN Insomnia 12/20/23 10/05/24 Unknown History fluoxetine 20 mg capsule 20 mg PO DAILY 10/05/24 10/05/24 Unknown History Exam Airway Mallampati Class: II TM Dist: <=3cm Neck ROM: Full Heart: rrr Lungs: cta Assessment and Plan Assessment Anesthesia Assessment: Anesthesia Plan Discussed Final Anesthetic Review Family History of Problems with Anesthesia: No History of Problems with Anesthesia: No NPO: Yes ASA Class: III (kaci/) Final Preanesthetic Review: No Changes in Pt Med Stat, Meds/Allgs Chart Reviewed, Consent Obtained/Reviewed and Anes Risks/Benef Reviewed Patient Risk: Intermediate Procedure Risk: Low Anesthetic Plan Anesthetic Plan: GA Disposition: Standard PACU
--- NOTE | 2024-10-05 13:21 | MHC.SHP ---
Pre-Procedural Eval Section A - 24 Hr Update-Section A only Date of Service: 10/05/24 The patient is an INPATIENT: No Changes since office visit: No Cold of Flu in the past 2 weeks, No New Medical Problems, No Changes in Medication and No Patient answered all questions The patient has been examined within 24 hours of the surgical procedure. The History & Physical has been completed within 30 days and I have reviewed it.: Yes Section B - Complete if H&P > 30 days Chief Complaint: Mucopurulent chronic bronchitis Allergies: Allergies Allergy/AdvReac Type Severity Reaction Status Date / Time Seasonal Allergies Allergy Runny Nose Verified 09/04/24 14:15 Plan I have reviewed the history and physical and performed a pertinent physical examination on my patient. No changes have occurred unless specified. Time Spent With Patient Time: Total time managing care of this patient today ____ minutes.
[2024-10-05] MEDS: Lactated Ringers 1,000 ML 100 ML IVCONT (13:41)
[2024-10-05 13:50] VITALS: BP 141/80; PULSE 60; RESP 18; TEMP 36.6; O2SAT 97
[2024-10-05 13:51] VITALS: BMI 36.7
--- NOTE | 2024-10-05 14:28 | PC.NURSE ---
report given to terri perdomo rn aware of 2 spots to sign on preop record.
[2024-10-05 15:15] VITALS: BP 151/76; PULSE 83; RESP 16; TEMP 36.3; O2SAT 97
[2024-10-05 15:20] VITALS: BP 159/85; PULSE 84; RESP 14; O2SAT 95
[2024-10-05 15:25] VITALS: BP 158/77; PULSE 80; RESP 16; O2SAT 95
[2024-10-05 15:30] VITALS: BP 142/78; PULSE 77; RESP 14; O2SAT 97
--- NOTE | 2024-10-05 15:53 | P.BOP_ITS ---
Brief Operative Note Date of Service: 10/05/24 Pre-op diagnosis: chronic bronchitis Procedure: TBM, Chronic bronchitis Surgeon: Stephen Bahena MD Anesthesia: GLMA Was an Clinical Staff Pharmacist used for this Procedure?: No Estimated blood loss (mL): 0 Pathology: none sent Condition: stable Disposition: same day
[2024-10-05 16:00] VITALS: BP 136/76; PULSE 72; RESP 16; TEMP 36.6; O2SAT 98
--- NOTE | 2024-10-06 02:25 | OP_ITS ---
DATE OF SERVICE: 10/05/2024 SURGEON: Stephen Bahena MD PREOPERATIVE DIAGNOSIS: Chronic bronchitis. POSTOPERATIVE DIAGNOSIS: PROCEDURE PERFORMED: Bronchoscopy with therapeutic cleaning, washings bilaterally. ESTIMATED BLOOD LOSS: COMPLICATIONS: ANESTHESIA: LMA. ASSISTANTS: SPECIMENS: POSTOPERATIVE DIAGNOSES: Tracheobronchomalacia and chronic bronchitis. DESCRIPTION OF PROCEDURE: After the patient was adequately sedated, LMA in placed, flexible digital bronchoscope was inserted via the LMA to the level of the larynx. The larynx appeared to be erythematous, swollen, and once the patient was sedated, he started snoring with complete obstruction of the larynx consistent with history of sleep apnea. After instilling lidocaine, the bronchoscope was then passed the vocal cord to the level of the trachea. The initial proximal trachea appeared to be slightly flattened and subsequently further down, it was small like crescent vilchis and the patient did have 100% obstruction to the right mainstem bronchus and central airways in that area primarily because of dynamic compression of the posterior tracheal muscle, but also from flattening of the tracheal respiratory system with tracheobronchomalacia, pretty significant bilaterally right more than left. The bronchoscope was then navigated to the entire tracheobronchial tree that was examined up to the segmental level. The patient did have friable mucosa with irritation just from suctioning. The patient did have some mucus plugs, mild to moderate in severity, which were suctioned without difficulty. No endobronchial lesions noted. Bronchial washings were collected. Because of the friability of the mucosa, opted I will not do any brushings and no obvious area to biopsy at this time. Therefore, the bronchial washings were collected bilaterally and send for both cytology and microbiology. The bronchoscope was then removed. The total endoscope time approximately 15 minutes. Vital signs were stable. Patient is recovering well. No evidence of any complications. EQUIPMENT OPERATOR/LABORER: None. Stephen Bahena MD MR/MODL / [id number]
== END 2024-10-05 16:38 | disposition home or self-care (01) ==
PROVIDERS: PCP Internal Medicine; Visit Provider Hospitalist
PROC: 0BJ08ZZ Inspection of Tracheobronchial Tree, Via Natural or Artificial Opening Endoscopic (ICD-10-PCS; CPT 31622; principal; 2024-10-05 14:40)
DX: J39.8 Other specified diseases of upper respiratory tract (principal); J30.9 Allergic rhinitis, unspecified; J01.90 Acute sinusitis, unspecified; J44.9 Chronic obstructive pulmonary disease, unspecified; J98.11 Atelectasis; R09.81 Nasal congestion; R05.3 Chronic cough; G47.33 Obstructive sleep apnea (adult) (pediatric); R53.1 Weakness; I10 Essential (primary) hypertension; G89.4 Chronic pain syndrome; E78.5 Hyperlipidemia, unspecified; Z99.89 Dependence on other enabling machines and devices; Z79.51 Long term (current) use of inhaled steroids; Z79.899 Other long term (current) drug therapy; Z87.891 Personal history of nicotine dependence; Z56.0 Unemployment, unspecified
CPT/HCPCS: 31624; 87070; 87205; 88112; 88305; J0165; J1100; J2003; J2405; J2704; J3010

== ENCOUNTER → 2024-10-05 12:48 | Outpatient (BNV) | payer MEDICARE, SELFPAY | PROVIDERS: PCP Internal Medicine; Visit Provider Hospitalist | DX: J42 Unspecified chronic bronchitis (principal) | CPT/HCPCS: 31622 ==

== ENCOUNTER 2024-10-06 15:29 | Outpatient (REF) | payer MEDICARE, SELFPAY ==
--- OUTSIDE RECORDS SUMMARY | 2022-01-26 01:00 | XMS_ITS | Encounter Summary ---
Author Organization [facility] Address [address] [place] [address] Phone Care Team Providers Care Medical Program Specialist Name Role Phone Handy Elias MD Primary Care Pr ovider Encounter Details Date Type Department Care Team (Late st Contact Info) Description 01/26/2022 Hospital Encounter [facility] [address] [place] [phone] Kenyetta Rubio MD [address] [place] [id number] Maryan@ [email or web address] Social History Tobacco Use Types Packs/Day Years [...] on filedocumented in this encounter Care Teams Medical Program Specialist Relationship Specialty Start Date End Date Handy Elias MD PCP - General Internal Medicine 08/11/20 documented as of this encounter Additional Source Comments The information contained in this document represents components of the legal health record. It is not the complete legal health record.[facility]
--- OUTSIDE RECORDS SUMMARY | 2024-10-06 16:18 | XMS_ITS | Encounter Summary ---
Author Organization [employer] Address [address] [place] [address] Care Team Providers Care Manager Energy Name Role Phone Handy Elias MD Primary Care Provider [phone] Reason for Referral * Consultation (Routine) - Closed Specialty Diagnoses / Procedures Referred By Maurice weaver Referred To Contact Otolaryngology Diagnoses Other chronic sinusitis Handy Elias MD [address] [place] [address] Phone: tel: fax: [facility] [address] Phone: tel: fax: Referral ID Status Reason Start Date Expiration Date V isits Requested Visits Authorized [id number] Closed Specialty Services Required 03/25/2024 03/25/2025 1 1 Encounter Details Date Type Department Care Team ([facility] st Contact Info) Description 03/25/2024 Orders Only [facility] [address] [place], [place] [phone] Handy Elias MD [address] [place], [place] [phone] Other chronic sinusitis (Primary Dx) Social History [...] 11/05/2024 4:00 PM EDT Office Visit [facility] [address] [place] [address] Handy Elias MD [address] [place] [address] 11/09/2024 2:30 PM EDT Telemedicine [facility] [address] [place] [address] Tessa Cox RN [address] [place] [address] Scheduled Referrals Name Type Priority Associated Diagnoses Orde r Schedule Referral to ENT Outpatient Referral Routine Other chronic sinusitis Expected: 03/25/2024 (Approximate), Expires: 03/25/2025 documented as of this encounter Visit Diagnoses Diagnosis Other chronic sinusitis- Primary documented in this encounter Care Teams Manager Energy Relationship Specialty Start Date End Date Handy Elias MD [address] [place] [id number] PCP - General Internal Medicine 11/17/12 documented as of this encounter
--- OUTSIDE RECORDS SUMMARY | 2024-10-06 16:18 | XMS_ITS | Encounter Summary ---
Author Organization [facility] Address [address] [place] [address] Phone Care Team Providers Care Private [employer] Teachers Name Role Phone Handy Elias MD Primary Care Provider [phone] Encounter Details Date Type Department Care Team (Late st Contact Info) Description 2022 Telephone [facility] [address] [place] [address] Christie Leone Social History Tobacco [...] on filedocumented in this encounter Care Teams Private [employer] Teachers Relationship Specialty Start Date End Date Handy Elias MD PCP - General Internal Medicine 10/19/20 documented as of this encounter
[2024-10-06 18:27] LABS: Anion Gap 14 (12-20); Blood Urea Nitrogen 33 mg/dL (9-16); Calcium 8.8 mg/dL (8.4-10.2); Carbon Dioxide 24 mmol/L (22-29); Chloride 106 mmol/L (96-108); Estimated Glomerular Filt Rate 51; Potassium 4.3 mmol/L (3.3-5.1); Sodium 140 mmol/L (135-145)
== END 2024-10-06 15:30 | disposition home or self-care (01) ==
LOC: HO.HKASLDS 15:29
PROVIDERS: Visit Provider Internal Medicine Hypertension Specialist
DX: I10 Essential (primary) hypertension (principal)
CPT/HCPCS: 36415; 80048

== ENCOUNTER 2024-10-22 13:26 | Outpatient (AMB) | payer MEDICARE, SELFPAY ==
--- OUTSIDE RECORDS SUMMARY | 2022-01-26 01:00 | XMS_ITS | Encounter Summary ---
Author Organization [facility] Address [address] [place] [address] Phone Care Team Providers Care Molybdenum Steamer Operator Name Role Phone Handy Elias MD Primary Care Pr ovider Encounter Details Date Type Department Care Team (Late st Contact Info) Description 01/26/2022 Hospital Encounter [facility] [address] [place] [phone] Kenyetta Rubio MD [address] [place] [phone] [email or web address] Social History Tobacco Use Types Packs/Day [...] on filedocumented in this encounter Care Teams Molybdenum Steamer Operator Relationship Specialty Start Date End Date Handy Elias MD PCP - General Internal Medicine 08/11/20 documented as of this encounter Additional Source Comments The information contained in this document represents components of the legal health record. It is not the complete legal health record.[facility]
--- NOTE | 2024-10-22 13:29 | A.OFFVIS_ITS ---
Vital Signs 3 10/22/24 13:30 Height 5 ft 11 in Weight 265 lb 10.512 oz BMI 37.0 BP 138/70 Blood Pressure Location Lt brachial Position Sitting Pulse 72 Pulse Source Pulse Oximeter Pulse Oximetry (%) 95 Oxygen Delivery Method Room Air Intake Visit Reasons: S/p bronch Performance Improvement Manager Required: No Accompanied by: Spouse Allergies Seasonal Allergies Allergy (Verified 10/22/24 13:34) Runny Nose HPI Comments Details: The patient is a 64-year-old gentleman known sleep apnea currently on ASV, allergic rhinitis and also asthma. The patient does use a nasal pillow mask with a chinstrap. Therapy has been affecting beneficial. He does get supplies through his [employer] company [employer]. I will request a download from [employer] at this time. In the meantime he does complaint of a cough which is moderate severity in productive of sputum. He does have nasal congestion and does get allergy shots for allergic rhinitis. He has been using Flonase and has been helpful. He also takes Zyrtec and also had been on singular. Patient also complains of dyspnea on exertion. He does have a rescue inhaler but he does not have to use it. He was supposed to have pulmonary function studies but ultimately canceled. Will have to reschedule them prior to his next visit. I did provide him with the N30 mask that he can trial and see if is effective for him. Hopefully this with minimize irritation to the nostrils. 09/11/2022 the patient is here for a pulmonary follow-up visit. The patient has been having hard time with sinuses for the last 3-4 weeks. He feels significant congestion and also sinus pressure. He has taken bqwv-ati-krpmtxh therapies in addition to nasal rinsing without a significant improvement. He has been on the azithromycin 3 times a week. The patient also complains of a cough secondary to the postnasal drip. His breathing otherwise has been okay as of now. The patient denies any fevers or chills. We did check his temperature today was 99 degrees. He already tested for COVID which was negative. This point the patient will be treated for sinusitis. Start with antibiotics in addition to Afrin cyxg-hxe-nlkwehs nasal spray. If he has no better he can start some prednisone. Also to note he did have chest x-ray back in 03/16/2019 demonstrating no acute lung pathology. Consider getting a sinus x-ray if he has no better. In the meantime he continues uses CPAP. CPAP therapy continues to be affecting beneficial. He does use it for more than 4 hours a night. He actually can not sleep without it. 05/17/2023 the patient is here for a pulmonary follow-up visit. He has multiple complaints. Again complaining of no sinus congestion and pressure. Second sinusitis is coming back. He typically responds well to Augmentin. He knows to stop the azithromycin if he is going to take Augmentin. The patient will need to call the office her see ENT if he continues to have persistent sinusitis issues. in the meantime the patient complains of extremity weakness. Denies any muscle pains. Just feels weak having some difficulty even getting up from the toilet. The patient also had a fall landing on his left side. He does have some pleuritic left-sided discomfort. He will have a rib series. He will be talking to his primary care doctor soon About his weakness and fall.. He does take statins. Will go ahead and check a CPK specially since going to get blood work but he needs to follow-up with his primary care doctor and should benefit from referral to physiatry Neurology. He will talk to his primary care doctor about that. Regards to the CPAP that continues to be affecting beneficial. He continues use it every night for more than 4 hours a night. 12/20/2023 the patient is here for a pulmonary follow-up visit. He complaining of worsening cough. It is productive in nature. Moderate severity. He has been waking up also worse of times of the night coughing. He is using a towel to try to clear secretions. The patient is having some coughing episodes while using his I AVAP. He did bring it in. Is not find the humidity of the temperature. Appears that he just has significant nasal congestion. He also has inflammation of the nasopharynx and also of the posterior pharynx. Also having some chest congestion. He will have a chest x-ray today. The patient is no better after the Augmentin he will provide us with a sputum culture. In the meantime the patient will continue with his current AVAP setting. His AHI is down to 1 therefore I suggested that they keep the current pressures. Although I believe with a high pressures through the AVAPS he is better off with a fullface mask. Although he likes the nasal pillows. I would encourage him to try a fullface mask future. 01/30/2024 the patient is here for a pulmonary follow-up visit. He continues to have significant nasal congestion sinus pressure postnasal drip and cough. It is bothersome to him. The patient has had a course of Augmentin without any significant improvement. He is wondering about different antibiotic. Thinking about Levaquin. Explained to him that he is having issues with bursitis and the Levaquin can potentially worsen tendinitis and bursitis. Therefore hold off on that we will try a combination of Augmentin and doxycycline. We did get a culture that was positive for Haemophilus parainfluenza. We did talk that if the patient continued to be symptomatic we can consider performing a bronchoscopy for deep cultures. But also he can follow-up with ENT since he is already established with them regarding the patient have a laryngoscopy at the bedside. In addition to that he had blood work previously. His eosinophil counts were significantly elevated. Therefore we could also consider the use of Dupixent. Will request additional blood work to see if he still candidate for that. In the meantime he is going to continue with the nasal rinsing. He is also going to start budesonide along with his Neti bottle. He will continue to use CPAP right now. He is using a fullface mask. The therapy has been affecting beneficial. She will use it for more than 4 hours a night. Will follow-up in 6 weeks to assess his progress with the therapy and will review the blood work to see if he is a candidate for Dupixent. 04/10/2024 the patient is here for pulmonary follow-up visit. Overall he is doing about the same. Still complaining of nasal congestion sinus pressure. He did well on the Augmentin doxycycline combination. Then after that he did see ENT and he was given Bactrim. They did a laryngoscopy I believe I do not have the report. And cultures were sent and I do not have those reports either. Then after you finish the antibiotics he feels like symptoms are coming back. We did talk about the concerns of multiple antibiotics in the risk of C diff colitis and resistance. Therefore, he is asking for more medications. Will go ahead and just given the doxycycline by itself. He can also uses a short course of prednisone to try to help open up the sinuses a little better. He did have a CT scan of the head because he had a fall at a gas station because he tripped on some object. He hit his head in addition to his side on the right side. He had a CT scan of the head that demonstrated significant chronic sinusitis primarily maxillary sinus and also a ethmoids retention cyst. He will be seen the ENT doctor soon he will discuss those findings with them. Patient for now continues the Neti bottle rinse with budesonide which appears to be helping and will go ahead and start him back on doxycycline. The patient did have blood work done and his eosinophils appear to be better. I am not sure if he is a good candidate for Dupixent at this time. Will have to watch and wait to see his response to the ENT treatment. He does continue on allergy shots. He does get that through ENT. In addition to this he did have a chest x-ray when he fell he was evaluated. Demonstrated some new atelectasis to the lingula. Will go ahead and work on deep breathing exercises and will repeat the x-ray in 6 weeks. If the area still abnormal will request a CT scan of chest. 09/04/2024 the patient is here for pulmonary follow-up visit. The patient has multiple complaints. He has worsening cough chest congestion very tenacious mucus. Moderate severity. Typically worse in the morning. He did respond well to doxy and Augmentin before. Will try to get another culture to see if he is growing any smoldering infections that require further antibiotics. In the meantime he also had a chest x-ray demonstrating some atelectasis to the left hemithorax. Will go ahead and repeat the x-ray. If the mucus continues to be significantly burdens some it if his x-ray is abnormal and if the sputum culture is not available or helpful a bronchoscopy will be very reasonable to address any respiratory infections and to assess the airways clearly. He can also provide therapeutic cleaning of the airways as well. The patient continues uses ASV. He tolerates it well although he is using nasal pillows. Has significant air leakage. And also get sinus impaction. I did have an F 40 mask available that he will try. His AHI is otherwise okay at 2.1 events per hour for the last month. The patient also appears to have a tick bite on his arm and has a target sign. Therefore, will go ahead and send doxycycline anyway that he can start for the likelihood of Lyme disease although I did recommend he follow-up with his primary care doctor and get serology testing. 10/22/2024 the patient is here for pulmonary follow-up visit. Overall he is doing okay after the bronchoscopy. We talked about the findings. The patient did have a small laryngeal ulceration. The patient will be seen by ENT soon and they can consider perform a laryngoscopy just to assess the ulceration. Also I will upload a picture so they can follow-up with that. The patient also had evidence of tracheobronchomalacia. And also bronchitis. Would be reasonable to request a CAT scan with expiratory cuts as well in order to assess for dynamic obstruction of the trachea. If the patient has significant disease we can talk about further therapies. But for now the PAP therapies effective and try to open up the airway. CPT the patient has been waiting for the Acapella valves which will request again. In addition to that continuing with his respiratory therapy will also be helpful. We also talked about the importance of the reflux diet and making sure that he sleeps elevated. He sleeps on his sides so he will look into bed risers for the head of the bed. Patient also talk about making lifestyle changes with the reflux diet. [facility] Medical History (Updated 10/22/24 @ 22:22 by Stephen Bahena MD) Laryngeal ulceration Tracheobronchomalacia determined by bronchoscopy Bronchitis Weakness Chest pain Atelectasis Tobacco dependence syndrome (~01/13/22) Senile hyperkeratosis (~02/21/18) Sciatica (~11/24/12) Osteoporosis (~09/20/17) Obstructive sleep apnea syndrome (~01/04/10) Low back pain (~07/14/12) Hypertension (~07/14/12) Erectile dysfunction (~11/24/12) Hypercholesterolemia (~07/14/12) Chronic kidney disease, stage 3 (~09/22/17) Chronic pain syndrome (~11/20/16) Chronic cough Chronic allergic rhinitis Hyperlipidemia JENN on CPAP Asthma-COPD overlap syndrome Dyspnea Cough Asthma Sinusitis Osteoarthritis of knees, bilateral Spondylosis of cervical joint without myelopathy Surgical History History of colonoscopy (~10/16/21) Family History Father Parkinson disease Mother Sister Obesity Hypertension Social History Household Members: Spouse Housing: House Are you a primary professional healthcare representative to a significant other at home: No Do you presently have visiting nurse or other home services: No Patient Tobacco Use Status: Former Tobacco user Tobacco use type: Cigarette Cigarette Packs Per Day: 1 Years Smoked: 30 years service: No Current occupational status: unemployed Review of Systems Const Denies night sweats and Reports weight loss ENT Denies change in voice, Denies lip swelling, Denies mouth pain, Reports nasal congestion, Reports nasal discharge, Reports sinus pain, Reports sinus pressure and Denies tongue swelling Card Reports dyspnea on exertion Resp Reports chest congestion, Reports cough, Reports pain on inspiration, Reports pain with cough and Reports dyspnea on exertion GI Denies abdominal pain Musc Reports abnormal gait, Reports joint swelling, Reports limited range of motion and Reports muscle weakness Neuro Denies Neuro-related abnormal movements and Reports abnormal gait Psych Denies no additional complaints Sheldon/Lymph Denies easy bleeding and Denies lymphadenopathy Aller/Immun Denies lip swelling and Denies tongue swelling Physical Exam Vital Signs: Last Vital Signs Pulse 72 10/22/24 13:30 BP 138/70 10/22/24 13:30 Pulse Ox 95 10/22/24 13:30 Oxygen Delivery Method Room Air 10/22/24 13:30 BMI result Body Mass Index 37.0 HEENT Head: Yes normocephalic General nose exam: Abnormal mucous membranes and turbinates present erythematous and Nasal discharge present purulent and mucoid Throat: Yes postnasal drainage and Yes cobblestoning Eyes Alignment and Position: alignment normal Pupils: Equal, round and reactive pupils present Neck Neck: Yes normal visual inspection, Yes full ROM and Yes no lymphadenopathy Chest Chest palpation & inspection: normal inspection of the chest, no crepitus and tenderness Resp Auscultation: no wheezes and diminished lung sounds Cardio Rate: regular rate Rhythm: regular rhythm Heart sounds: S1 normal heart sound present and S2 normal heart sound present GI Palpation (GI): Soft to palpation and nontender Auscultation: normal bowel sounds Skin General skin exam: rashes and/or lesions noted Neuro Cranial nerves: Yes Equal, round and reactive pupils present Results Reviewed Results Reviewed: Assessment & Plan Assessment & Plan (1) Chronic cough: Code(s): R05 - Cough Category: Medical (2) Atelectasis: Code(s): J98.11 - Atelectasis Category: Medical (3) Tracheobronchomalacia determined by bronchoscopy: Code(s): J39.8 - Other specified diseases of upper respiratory tract Category: Medical (4) Laryngeal ulceration: Code(s): J38.7 - Other diseases of larynx Category: Medical (5) JENN on CPAP: Code(s): G47.33 - Obstructive sleep apnea (adult) (pediatric); Z99.89 - Dependence on other enabling machines and devices Category: Medical (6) Asthma-COPD overlap syndrome: Code(s): J44.9 - Chronic obstructive pulmonary disease, unspecified Category: Medical (7) Cough: Code(s): R05 - Cough Category: Medical Qualifiers: Cough type: chronic Qualified Code(s): R05.3 - Chronic cough (8) Chronic allergic rhinitis: Code(s): J30.9 - Allergic rhinitis, unspecified Category: Medical Plan CPT with nebulized therapy followed by hypertonic saline continue antihistamine and Singulair continue PAP therapy okay to use it without humidification reflux diet CT chest with end insp/exp cut with dynamic airway collapse ENT to re-evaluate small laryngeal lesion/ulceration continue reflux diet Sleep with HOB elevated Continue Daliresp follow-up 2-3 months Orders: Orders 2 CT chest wo IV con Today J39.8 - Other specified diseases of upper respiratory tract, J98.11 - Atelectasis, R05 - Cough Medications: Refilled 2 Ventolin HFA 90 mcg/actuation (albuterol sulfate) 2 puffs inhalation Q6H PRN 18 grams 11RF for wheezing 30 days NS J45.909 - Unspecified asthma, uncomplicated, R06.00 - Dyspnea, unspecified epinephrine (EpiPen 2-Oc) for 2 doses 0.3 mg (0.3 mL) IM Q10M PRN 2 ea 6RF anaphylaxis 30 days J45.40 - Moderate persistent asthma, uncomplicated Coding Level of Care Code Est Pt Level 5 (62195) Complex EM visit Add On G2211 Diagnoses Chronic cough R05 Atelectasis J98.11 Tracheobronchomalacia determined by bronchoscopy J39.8 Laryngeal ulceration J38.7 JENN on CPAP G47.33; Z99.89 Asthma-COPD overlap syndrome J44.9 Chronic cough R05.3 Cough type: chronic Chronic allergic rhinitis J30.9 Time Spent (min) 45
[2024-10-22 13:30] VITALS: BP 138/70; PULSE 72; O2SAT 95; BMI 37.0
--- OUTSIDE RECORDS SUMMARY | 2024-10-22 14:04 | XMS_ITS | Encounter Summary ---
Author Organization [employer] Address [address] [place] [address] Care Team Providers Care Florist Helper Name Role Phone Handy Elias MD Primary Care Provider [phone] Reason for Referral * Consultation (Routine) - Closed Specialty Diagnoses / Procedures Referred By Maurice weaver Referred To Contact Otolaryngology Diagnoses Other chronic sinusitis Handy Elias MD [address] [place] [address] Phone: tel: fax: [facility] [address] Phone: tel: fax: Referral ID Status Reason Start Date Expiration Date V isits Requested Visits Authorized [id number] Closed Specialty Services Required 03/25/2024 03/25/2025 1 1 Encounter Details Date Type Department Care Team ([facility] st Contact Info) Description 03/25/2024 Orders Only [facility] [address] [place], [place] [phone] Handy Elias MD [address] [place], [place] [phone] Other chronic sinusitis (Primary Dx) Social History [...] [facility] [address] [place] [address] Handy Elias MD [address] [place] [address] 11/09/2024 2:30 PM EDT Telemedicine [facility] [address] [place] [address] Tessa Cox RN [address] [place] [address] Scheduled Referrals Name Type Priority Associated Diagnoses Orde r Schedule Referral to ENT Outpatient Referral Routine Other chronic sinusitis Expected: 03/25/2024 (Approximate), Expires: 03/25/2025 documented as of this encounter Visit Diagnoses Diagnosis Other chronic sinusitis- Primary documented in this encounter Care Teams Florist Helper Relationship Specialty Start Date End Date Handy Elias MD [address] [place] [id number] PCP - General Internal Medicine 11/17/12 documented as of this encounter
--- OUTSIDE RECORDS SUMMARY | 2024-10-22 14:05 | XMS_ITS | Encounter Summary ---
Author Organization [employer] Address [address] [facility] 7 [place] [address] Care Team Providers Care Evaluation Engineer Name Role Phone Handy Elias MD Primary Care Provider [phone] Reason for Visit * Reason Onset Date Comments Med Refill 01/14/2024 Encounter Details Date Type Department Care Team ([facility] st Contact Info) Description 01/14/[address] [facility] MED[facility] [address] [place] [address] Handy Elias MD [address] [place], [place] [phone] Med Refill Social History Tobacco Use Types [...] tablet To be sent to: [facility]/pharmacy #[id number] - [place] - [address] [place] [address] AT [address], [facility] documented in this encounter Plan of Treatment Upcoming Encounters Date Type Department Care Team (Late st Contact Info) Description 11/05/2024 4:00 PM EDT Office Visit [facility] [address] [place] [address] Handy Elias MD [address] [place] [address] 11/09/2024 2:30 PM EDT Telemedicine [facility] [address] [place] [address] Tessa Cox, MARITA [address] [place] [address] documented as of this encounter Visit Diagnoses Not on filedocumented in this encounter Care Teams Evaluation Engineer Relationship Specialty Start Date End Date Handy Elias MD [address] [place] [address] PCP - General Internal Medicine 11/17/12 documented as of this encounter
--- OUTSIDE RECORDS SUMMARY | 2024-10-22 14:05 | XMS_ITS | Encounter Summary ---
Author Organization [email or web address] Address [address] [facility] 7 [place] [address] Care Team Providers Care Firesetter Name Role Phone Handy Elias MD Primary Care Provider [phone] Reason for Visit * Reason Onset Date Comments Med Refill 07/28/2024 Encounter Details Date Type Department Care Team (Late st Contact Info) Description 07/28/2024 Telephone [facility] MEDICINE [address] [place], [place] [phone] Handy Elias MD [address] [place], [place] [phone] Med Refill Social History Tobacco Use Types [...] * Telephone Encounter - Tiff Mathis - 07/28/2024 8:35 AM EDT TC from pt requesting medication refill. Medications needing refill : oxyCODONE (Roxicodone) 5 MG immediate release tablet To be sent to: [facility]/pharmacy #[id number] - [place], [place] - [address] [place] [address] AT [address], [place] [address] documented in this encounter Plan of Treatment Upcoming Encounters Date Type Department Care Team (Late st Contact Info) Description 11/05/2024 4:00 PM EDT Office Visit [facility] [address] [place] [address] Handy Elias MD [address] [place] [address] 11/09/2024 2:30 PM EDT Telemedicine [facility] [address] [place] [address] Tessa Cox RN [address] [place], [place] [phone] documented as of this encounter Visit Diagnoses Not on filedocumented in this encounter Additional Health Concerns Assessment Noted Time PHQ-9 Depression Total Score: 2 05/09/19 25 2:07 PM EDT documented as of this encounter Care Teams Firesetter Relationship Specialty Start Date End Date Handy Elias MD [address] [place] [address] PCP - General Internal Medicine 11/17/12 documented as of this encounter
--- OUTSIDE RECORDS SUMMARY | 2024-10-22 14:05 | XMS_ITS | Encounter Summary ---
Author Organization [facility] Address [address] [place] [address] Phone Care Team Providers Care Curing Room Worker Name Role Phone Handy Elias MD Primary Care Provider [phone] Encounter Details Date Type Department Care Team (Late st Contact Info) Description 2022 Telephone [facility] [address] [place] [address] Christie Leone Social History Tobacco [...] on filedocumented in this encounter Care Teams Curing Room Worker Relationship Specialty Start Date End Date Handy Elias MD PCP - General Internal Medicine 10/19/20 documented as of this encounter
--- OUTSIDE RECORDS SUMMARY | 2024-10-22 14:05 | XMS_ITS | Encounter Summary ---
Author Organization [employer] Address [address] [facility] 7 [place] [address] Care Team Providers Care Osd Clerk Name Role Phone Handy Elias MD Primary Care Provider [phone] Reason for Visit * Reason Onset Date Comments Med Refill 06/02/2024 Encounter Details Date Type Department Care Team (Late st Contact Info) Description 06/02/2024 Telephone [facility] MEDICINE [address] [place], [place] [phone] Handy Elias MD [address] [place], [place] [phone] Med Refill Social History Tobacco Use Types [...] immediate release tablet To be sent to: [facility]/pharmacy #[id number] - [place], [place] - [address] [place] [address] AT [address], [place] [place] [address] documented in this encounter Plan of Treatment Upcoming Encounters Date Type Department Care Team (Late st Contact Info) Description 11/05/2024 4:00 PM EDT Office Visit [facility] [address] [place] [address] Handy Elias MD [address] [place] [address] 11/09/2024 2:30 PM EDT Telemedicine [facility] [address] [place] [address] Tessa Cox RN [address] [place], [place] [phone] documented as of this encounter Visit Diagnoses Not on filedocumented in this encounter Additional Health Concerns Assessment Noted Time PHQ-9 Depression Total Score: 2 05/09/19 25 2:07 PM EDT documented as of this encounter Care Teams Osd Clerk Relationship Specialty Start Date End Date Handy Elias MD [address] [place] [id number] PCP - General Internal Medicine 11/17/12 documented as of this encounter
--- OUTSIDE RECORDS SUMMARY | 2024-10-22 14:05 | XMS_ITS | Encounter Summary ---
Author Organization [employer] Address [address] [place] [address] 7 [place] [address] Care Team Providers Care Shoe Ironer Name Role Phone Handy Elias MD Primary Care Provider +1- [phone] Encounter Details Date Type Department Care Team ([facility] Contact Info) Description 12/26/2022 Abstract [facility] MEDICINE [address] [place], [place] [phone] Handy Elias MD 505 [place], [place] [phone] Social History Tobacco Use Types Packs/Day Years [...] Upcoming Encounters Date Type Department Care Team ([facility] [address] Contact Info) Description 11/05/2024 4:00 PM EDT Office Visit [facility] MED & PEDS 505 [place] [address] Handy Elias MD 505 [place], [place] [phone] 11/09/2024 2:30 PM EDT Telemedicine [facility] MED & PEDS 505 [place], [place] [phone] Tessa Cox, RN 505 [place] [address] documented as of this encounter Visit Diagnoses Not on filedocumented in this encounter Care Teams Shoe Ironer Relationship Specialty Start Date End Date Handy Elias MD 505 [place] [address] PCP - General Internal Medicine 11/17/12 documented as of this encounter
--- OUTSIDE RECORDS SUMMARY | 2024-10-22 14:05 | XMS_ITS | Encounter Summary ---
Author Organization [employer] Address [address] [place] [address] [place] [address] Care Team Providers Care Sql Report Analyst Name Role Phone Handy Elias MD Primary Care Provider +1- [phone] Encounter Details Date Type Department Care Team (Late st Contact Info) Description 07/16/2022 Orders Only [facility] MED & PEDS 505 [place] [address] Nataliia Santos LPN Social History Tobacco Use [...] Description 11/05/2024 4:00 PM EDT Office Visit [facility] MED & PEDS 505 [place] [address] Handy Elias MD 505 [place] [address] 11/09/2024 2:30 PM EDT Telemedicine [facility] MED & PEDS 505 [place] [address] Tessa Cox, MARITA 505 [place] [address] documented as of this encounter Visit Diagnoses Not on filedocumented in this encounter Care Teams Sql Report Analyst Relationship Specialty Start Date End Date Handy Elias MD [address] [place] [address] PCP - General Internal Medicine 11/17/12 documented as of this encounter
--- OUTSIDE RECORDS SUMMARY | 2024-10-22 14:05 | XMS_ITS | Encounter Summary ---
Author Organization [employer] Address [address] [place] [address] 7 [place] [address] Care Team Providers Care Guide Setter Name Role Phone Handy Elias MD Primary Care Provider +1- [phone] Encounter Details Date Type Department Care Team ([facility] Contact Info) Description 03/14/2023 Orders Only [facility] CH[facility] MED & PEDS 505 [place], [place] [phone] Handy Elias MD 505 [place], [place] [phone] Chronic pain syndrome; Primary insomnia Social History [...] Department Care Team (Late Contact Info) Description 11/05/2024 4:00 PM EDT Office Visit [facility] MED & PEDS 505 [place] [address] Handy Elias MD 505 [place] [address] 11/09/2024 2:30 PM EDT Telemedicine [facility] MED & PEDS 505 [place] [address] Tessa Cox, MARITA 505 [place] [address] documented as of this encounter Visit Diagnoses Diagnosis Chronic pain syndrome Primary insomnia Persistent disorder of initiating or maintaining sleep documented in this encounter Care Teams Guide Setter Relationship Specialty Start Date End Date Handy Elias MD 505 [place] [address] PCP - General Internal Medicine 11/17/12 documented as of this encounter
--- OUTSIDE RECORDS SUMMARY | 2024-10-22 14:05 | XMS_ITS | Encounter Summary ---
Author Organization [employer] Address [address] [place] [address] 7 [place] [address] Care Team Providers Care Social Science Manager Name Role Phone Handy Elias MD Primary Care Provider +1 [phone] Reason for Visit * Reason Comments Med Refill Encounter Details Date Type Department Care Team ([facility] st Contact Info) Description 06/18/2024 Refill [facility] CH[facility] MED & PEDS 505 [place], [place] [phone] Handy Elias MD 505 [place], [place] [phone] Primary insomnia Social History Tobacco Use Types [...] Description 11/05/2024 4:00 PM EDT Office Visit [facility] MED & PEDS 505 [place] [address] Handy Elias MD 505 [place] [address] 11/09/2024 2:30 PM EDT Telemedicine [facility] MED & PEDS 505 [place] [address] Tessa Cox, MARITA 505 [place] [address] documented as of this encounter Visit Diagnoses Diagnosis Primary insomnia Persistent disorder of initiating or maintaining sleep documented in this encounter Additional Health Concerns Assessment Noted Time PHQ-9 Depression Total Score: 2 05/09/19 25 2:07 PM EDT documented as of this encounter Care Teams Social Science Manager Relationship Specialty Start Date End Date Handy Elias MD 505 [place] [address] PCP - General Internal Medicine 11/17/12 documented as of this encounter
--- OUTSIDE RECORDS SUMMARY | 2024-10-22 14:05 | XMS_ITS | Encounter Summary ---
Author Organization [employer] Address [address] [place] [address] 7 [place] [address] Care Team Providers Care Lay Out Inspector Name Role Phone Handy Elias MD Primary Care Provider +1- [phone] Encounter Details Date Type Department Care Team (Late Contact Info) Description 08/29/2022 Orders Only [facility] CHC MED & PEDS 505 [place], [place] [phone] Handy Elias MD 505 [place], [place] [phone] Social History Tobacco Use Types Packs/Day Years [...] Description 11/05/2024 4:00 PM EDT Office Visit [facility] CH[facility] MED & PEDS 505 [place] [address] Handy Elias MD 505 [place], [place] [phone] 11/09/2024 2:30 PM EDT Telemedicine [facility] MED & PEDS 505 [place], [place] [phone] Tessa Cox, MARITA 505 [place], [place] [phone] documented as of this encounter Visit Diagnoses Not on filedocumented in this encounter Care Teams Lay Out Inspector Relationship Specialty Start Date End Date Handy Elias MD [address] [place] [address] [place] [address] PCP - General Internal Medicine 11/17/12 documented as of this encounter
--- OUTSIDE RECORDS SUMMARY | 2024-10-22 14:05 | XMS_ITS | Encounter Summary ---
Author Organization [employer] Address [address] [place] [address] h Floor [address] Care Team Providers Care Filenet Admin Name Role Phone Handy Elias MD Primary Care Provider +1- [phone] Reason for Visit * Reason Onset Date Comments Med Refill 02/13/2023 Encounter Details Date Type Department Care Team (Late st Contact Info) Description 02/13/2023 Telephone [facility] MEDICINE 230 [place], [place] [phone] Handy Elias MD 505 [place], [place] [phone] Med Refill Social History Tobacco Use Types [...] oxyCODONE (Roxicodone) 5 MG immediate release tablet [facility]/pharmacy #[id number] - [place] - [address] [place] [address] [address] [facility] [address] documented in this encounter Plan of Treatment Upcoming Encounters Date Type Department Care Team (Late st Contact Info) Description 11/05/2024 4:00 PM EDT Office Visit [facility] MED & PEDS 505 [place] [address] Handy Elias MD 505 [place] [address] 11/09/2024 2:30 PM EDT Telemedicine [facility] MED & PEDS 505 [place] [address] Tessa Cox, MARITA 505 [place] [address] documented as of this encounter Visit Diagnoses Not on filedocumented in this encounter Care Teams Filenet Admin Relationship Specialty Start Date End Date Handy Elias MD 505 [place] [address] PCP - General Internal Medicine 11/17/12 documented as of this encounter
--- OUTSIDE RECORDS SUMMARY | 2024-10-22 14:05 | XMS_ITS | Encounter Summary ---
Author Organization [employer] Address [address] 7t [place] [address] Care Team Providers Care Operator Technician Name Role Phone Handy Elias MD Primary Care Provider [phone] Encounter Details Date Type Department Care Team (Late st Contact Info) Description 05/11/2024 Orders Only [facility] CH[facility] MED & PEDS [address] [place], [place] [phone] Provider, MD Melanie Social History Tobacco Use [...] the past 12 months, has t he [employer], [employer], oil or water [employer] threatened to shut off services in your [...] Description 11/05/2024 4:00 PM EDT Office Visit [facility] MED & PEDS 505 [place] [address] Handy Elias MD 505 [place] [address] 11/09/2024 2:30 PM EDT Telemedicine [facility] MED & PEDS 505 [place] [address] Tessa Cox RN 505 [place] [address] documented as of this encounter Procedures Procedure [...] documented as of this encounter Care Teams Operator Technician Relationship Specialty Start Date End Date Handy Elias MD 505 [place] [address] PCP - General Internal Medicine 11/17/12 documented as of this encounter
--- OUTSIDE RECORDS SUMMARY | 2024-10-22 14:05 | XMS_ITS | Encounter Summary ---
Author Organization [employer] Address [address] [facility] 7 [place] [address] Care Team Providers Care Wrapper Sorter Name Role Phone Handy Elias MD Primary Care Provider [phone]- [phone] Reason for Visit * Reason Onset Date Comments Med Refill 06/12/2022 Encounter Details Date Type Department Care Team (Late st Contact Info) Description 06/12/2022 Telephone [facility] MEDICINE 230 [place], [place] [phone] Handy Elias MD 505 [place], [place] [phone] Med Refill Social History Tobacco Use Types [...] 4:00 PM EDT Office Visit [facility] MED & PEDS 505 [place] [address] Handy Elias MD 505 [place] [address] 11/09/2024 2:30 PM EDT Telemedicine [facility] MED & PEDS 505 [place] [address] Tessa Cox, MARITA 505 [place], [place] [phone] documented as of this encounter Visit Diagnoses Not on filedocumented in this encounter Care Teams Wrapper Sorter Relationship Specialty Start Date End Date Handy Elias MD 505 [place] [address] PCP - General Internal Medicine 11/17/12 documented as of this encounter
--- OUTSIDE RECORDS SUMMARY | 2024-10-22 14:05 | XMS_ITS | Encounter Summary ---
Author Organization [employer] Address [address] [place] [address] 7 [place] [address] Care Team Providers Care Bricklayer Paving Brick Name Role Phone Handy Elias MD Primary Care Provider +1- [phone] Encounter Details Date Type Department Care Team (Late st Contact Info) Description 2022 Abstract [facility] MEDICINE 230 [place], [place] [phone] ProviderMelanie MD Social History Tobacco Use Types [...] Description 11/05/2024 4:00 PM EDT Office Visit [facility] MED & PEDS 505 [place], [place] [phone] Hadny lEias MD 505 [place] [address] 11/09/2024 2:30 PM EDT Telemedicine [facility] MED & PEDS 505 [place] [address] Tessa Cox, MARITA 505 [place] [address] documented as of this encounter Visit Diagnoses Not on filedocumented in this encounter Care Teams Bricklayer Paving Brick Relationship Specialty Start Date End Date Handy Elias MD 505 [place] [address] PCP - General Internal Medicine 11/17/12 documented as of this encounter
--- OUTSIDE RECORDS SUMMARY | 2024-10-22 14:05 | XMS_ITS | Encounter Summary ---
Author Organization [employer] Address [address] [place] [address] 7 [place] [address] Care Team Providers Care Sat Act Instructor Name Role Phone Handy Elias MD Primary Care Provider +1- [phone] Encounter Details Date Type Department Care Team (Late Contact Info) Description 02/02/2022 Orders Only [facility] MEDICINE 230 [place], [place] [phone] Handy Elias MD 505 [place], [place] [phone] Cold intolerance of hand (Primary Dx); Primary [...] Description 11/05/2024 4:00 PM EDT Office Visit [facility] CHC MED & PEDS 505 [place], [place] [phone] Handy Elias MD 505 [place], [place] [phone] 11/09/2024 2:30 PM EDT Telemedicine [facility] CHC MED & PEDS 505 [place] [address] Tessa Cox, RN 505 [place] [address] documented as of this encounter Procedures Procedure Name Priority Date/Time Associated Diagnosis Comments TSH W/REFLEX TO FT4 Routine 03/01/2022 1 1:16 AM EST Cold intolerance of hand documented in this encounter Results * TSH W/Reflex to FT4 (03/01/2022 11:16 AM EST) TSH w/Reflex to FT4 2.35 0.40 - 4.50 mIU/L [place] [facility] 03/01/2022 11:1 6 AM EST 03/01/2022 11:16 AM EST Handy Elias MD LAB BLOOD ORDERABLES Final Result [facility] [address] [place] [address], [place] [address] [place] [facility] [address] [facility], ([address]) [place] [address] documented in this encounter Visit Diagnoses Diagnosis Cold intolerance of hand- Primary Primary insomnia Persistent disorder of initiating or maintaining sleep documented in this encounter Care Teams Sat Act Instructor Relationship Specialty Start Date End Date Handy Elias MD 505 [place] [address] PCP - General Internal Medicine 11/17/12 documented as of this encounter
--- OUTSIDE RECORDS SUMMARY | 2024-10-22 14:05 | XMS_ITS | Encounter Summary ---
Author Organization [employer] Address [address] [facility] 7 [place] [address] Care Team Providers Care Receiver Bulk System Name Role Phone Handy Elais MD Primary Care Provider +1- [phone] Reason for Visit * Reason Onset Date Comments Reschedule 04/01/2023 Encounter Details Date Type Department Care Team (Late st Contact Info) Description 04/01/2023 Telephone [facility] MEDICINE 230 [place], [place] [phone] Handy Elias MD 505 [place] [address] Reschedule Social History Tobacco Use Types Packs/Day [...] Tc from Josefina requesting r/s 04/04/2023 appt, fiction and nonfiction prose writer attempted to schedule no availability. documented in this encounter Plan of Treatment Upcoming Encounters Date Type Department Care Team (Late st Contact Info) Description 11/05/2024 4:00 PM EDT Office Visit [facility] MED & PEDS 505 [place] [address] Handy Elias MD 505 [place] [address] 11/09/2024 2:30 PM EDT Telemedicine [facility] MED & PEDS 505 [place] [address] Tessa Cox RN 505 [place] [address] documented as of this encounter Visit Diagnoses Not on filedocumented in this encounter Care Teams Receiver Bulk System Relationship Specialty Start Date End Date Handy Elias MD 505 [place] [address] PCP - General Internal Medicine 11/17/12 documented as of this encounter
--- OUTSIDE RECORDS SUMMARY | 2024-10-22 14:05 | XMS_ITS | Clinical Summary ---
Author Organization [facility] Address [address] [place] [address] Phone Care Team Providers Care Auction Assistant Name Role Phone Handy Elias MD Primary Care Provider +1- [phone] Allergies Active Allergy Reactions Criticality Noted Date [...] Risk 3-dose series) 2018 Influenza Vaccine (#1) 2024 1, 11/28/2019, 11/18/2017, Additional history exists [place] Care Teams Auction Assistant Relationship Specialty Start Date End Date Handy Elias MD PCP - General Internal Medicine 10/19/20
--- OUTSIDE RECORDS SUMMARY | 2024-10-22 14:06 | XMS_ITS | Encounter Summary ---
Author Organization [employer] Address [address] [place] [address] 7 [place] [address] Care Team Providers Care Talent Acquisition Sourcer Name Role Phone Handy Elias MD Primary Care Provider +1- [phone] Encounter Details Date Type Department Care Team (Late Contact Info) Description 12/12/2022 Orders Only [facility] CHC MED & PEDS 505 [place], [place] [phone] Handy Elias MD 505 [place], [place] [phone] Vitamin B12 deficiency (Primary Dx) Social History [...] Description 11/05/2024 4:00 PM EDT Office Visit [facility] CHC MED & PEDS 505 [place], [place] [phone] Handy Elias MD 505 [place] [address] 11/09/2024 2:30 PM EDT Telemedicine [facility] MED & PEDS 505 [place], [place] [phone] Tessa Cox, MARITA 505 [place] [address] documented as of this encounter Visit Diagnoses Diagnosis Vitamin B12 deficiency- Primary Other B-complex deficiencies documented in this encounter Care Teams Talent Acquisition Sourcer Relationship Specialty Start Date End Date Handy Elias MD 505 [place] [address] PCP - General Internal Medicine 11/17/12 documented as of this encounter
--- OUTSIDE RECORDS SUMMARY | 2024-10-22 14:06 | XMS_ITS | Encounter Summary ---
Author Organization [employer] Address [address] [place] [address] 7 [place] [address] Care Team Providers Care Resident Physician In Radiology Name Role Phone Handy Elias MD Primary Care Provider +1- [phone] Reason for Visit * Reason Onset Date Comments Med Refill 07/30/2023 Encounter Details Date Type Department Care Team (Late st Contact Info) Description 07/30/2023 Telephone [facility] MEDICINE 230 [place], [place] [phone] Handy Elias MD 505 [place], [place] [phone] Med Refill Social History Tobacco Use Types [...] immediate release tablet To be sent to: [facility]/pharmacy #[id number] - [place] - [address] [facility] [address] [place] [address] documented in this encounter Plan of Treatment Upcoming Encounters Date Type Department Care Team (Late st Contact Info) Description 11/05/2024 4:00 PM EDT Office Visit [facility] MED & PEDS 505 [place] [address] Handy Elias MD 505 [place] [address] 11/09/2024 2:30 PM EDT Telemedicine [facility] MED & PEDS 505 [place] [address] Tessa Cox, MARITA 505 [place], [place] [phone] documented as of this encounter Visit Diagnoses Not on filedocumented in this encounter Care Teams Resident Physician In Radiology Relationship Specialty Start Date End Date Handy Elias MD 505 [place] [address] PCP - General Internal Medicine 11/17/12 documented as of this encounter
--- OUTSIDE RECORDS SUMMARY | 2024-10-22 14:06 | XMS_ITS | Encounter Summary ---
Author Organization [facility] Address [address] [place] [address] Phone Care Team Providers Care Organ Recovery Coordinator Name Role Phone Handy Elias MD Primary Care Pr ovider Reason for Referral * Physical Therapy (Routine) - Closed Specialty Diagnoses / Procedures Referred By Contnanci t Referred To Contact Physical Therapy Diagnoses Encounter for rehabilitation Possible [employer] Procedures Evaluate & Treat Christie Carcamo NP Phone: tel: fax: [address] [address] Phone: tel: Referral ID Status Reason Start Date Expiration Date Visits Re quested Visits Authorized [id number] Closed 09/07/2020 02/24/2021 10 10 Encounter Details Date Type Department Care Team (Latest Contact Info) Description 08/11/2020 Transcribe Orders [facility] [address] [place] [address] Christie Carcamo NP [address] [place] [address] Encounter for rehabilitation (Primary Dx) Social History Tobacco Use Types [...] Procedure Name Priority Date/Time Associated Diagnosis Comments AMB REFERRAL TO [facility] PHYSICAL THERAPY Routine 09/19/2020 6:13 PM EDT Encounter for rehabilitation documented in this encounter Results * Ambulatory referral to [facility] Physical Therapy (09/19/2020 6:13 PM EDT) Other us Christie Carcamo [employer] AMB [facility] REFERRALS Final Result documented in this encounter Visit Diagnoses Diagnosis Encounter for rehabilitation- Primary documented in this encounter Care Teams Organ Recovery Coordinator Relationship Specialty Start Date End Date Handy Elias MD PCP - General Internal Medicine 08/11/20 documented as of this encounter Additional Source Comments The information contained in this document represents components of the legal health record. It is not the complete legal health record.[facility]
--- OUTSIDE RECORDS SUMMARY | 2024-10-22 14:06 | XMS_ITS | Encounter Summary ---
Author Organization [employer] Address [address] [facility] 7 [place] [address] Care Team Providers Care Internal Consultant Name Role Phone Handy Elias MD Primary Care Provider +1- [phone] Reason for Visit * Reason Onset Date Comments Call Back Request 05/14/2023 Encounter Details Date Type Department Care Team (Late st Contact Info) Description 05/14/2023 Telephone [facility] MEDICINE 230 [place], [place] [phone] Handy Elias MD 505 [place] [address] Call Back Request Social History Tobacco Use [...] Description 11/05/2024 4:00 PM EDT Office Visit [facility] MED & PEDS 505 [place] [address] Handy Elias MD 505 [place] [address] 11/09/2024 2:30 PM EDT Telemedicine [facility] MED & PEDS 505 [place] [address] Tessa Cox RN 505 [place] [address] documented as of this encounter Visit Diagnoses Not on filedocumented in this encounter Care Teams Internal Consultant Relationship Specialty Start Date End Date Handy Elias MD 505 [place] [address] PCP - General Internal Medicine 11/17/12 documented as of this encounter
--- OUTSIDE RECORDS SUMMARY | 2024-10-22 14:06 | XMS_ITS | Encounter Summary ---
Author Organization [employer] Address [address] [place] [address] Care Team Providers Care Construction Stonemason Name Role Phone Handy Elias MD Primary Care Provider +1- [phone] Reason for Referral * Consultation (Routine) - Closed Specialty Diagnoses / Procedures Referred By Contac t Referred To Contact Pain Medicine Diagnoses Chronic midline low back pain, unspecified whether sciatica present Handy Elias MD 505 [place] [address] Phone: tel: fax: Earnest Gardner MD [address] [place] [address] [address] [place] [address] Phone: tel: fax: Referral ID Status Reason Start Date Expiration Date V isits Requested Visits Authorized [id number] Closed Specialty Services Required 06/23/2024 06/23/2025 1 1 Encounter Details Date Type Department Care Team (Late st Contact Info) Description 06/23/2024 Orders Only [facility] MED & PEDS 505 [place], [place] [phone] Handy Elias MD 505 [place], [place] [phone] Chronic midline low back pain, unspecified whether [...] Description 11/05/2024 4:00 PM EDT Office Visit [facility] MED & PEDS 505 [place] [address] Handy Elias MD 505 [place] [address] 11/09/2024 2:30 PM EDT Telemedicine [facility] MED & PEDS 505 [place] [address] Tessa Cox RN [address] [place] [address] Scheduled Referrals Name Type Priority Associated Diagnoses [...] documented as of this encounter Care Teams Construction Stonemason Relationship Specialty Start Date End Date Handy Elias MD 505 [place] [address] PCP - General Internal Medicine 11/17/12 documented as of this encounter
--- OUTSIDE RECORDS SUMMARY | 2024-10-22 14:06 | XMS_ITS | Clinical Summary ---
Author Organization [facility] Address [address] [place] [phone] Phone Care Team Providers Care Vp Respiratory Name Role Phone Handy Elias MD Primary Care Pr ovider Allergies Active Allergy Reactions Criticality Noted Date Comments Mold 02/21/2022 Pineapple 10/04/2020 Other reaction(s): Other (see comments) Venom-Honey Bee 10/04/2020 Other reaction(s): Other (see comments) Medications acetaminophen (TYLENOL) 650 MG CR tablet Take 650 mg by mouth every 8 (eight) hours as needed. 02/16/20 22 Active VENTOLIN HFA 90 mcg/actuation inhaler 2 puffs every 6 (six) hours as needed. 12/27/19 22 Active amLODIPine (NORVASC) 5 MG tablet Take 5 mg by mouth daily. 02/09/20 22 Active azelastine (ASTELIN) 137 mcg (0.1 %) nasal spray USE 2 SPRAYS NASALLY TWICE A DAY DIRECTED 02/03/20 22 Active budesonide (PULMICORT) 0.5 mg/2 mL nebulizer solution 0.5 mg daily. Nasal irrigation 02/02/20 22 Active busPIRone (BUSPAR) 10 MG tablet Take 10 mg by mouth 2 (two) times a day. 01/22/20 22 Active cetirizine (ZYRTEC) 10 MG tablet Take 1 tablet by mouth daily. 10/01/19 21 Active VITAMIN D3 50 mcg (2,000 unit) capsule Take 2,000 Units by mouth daily. 10/20/20 22 Active cyanocobalamin (VITAMIN B-12) 1,000 mcg/mL injection INJECT 1 ML ONCE A MONTH DIRECTED 01/20/20 Active docusate sodium (COLACE) 100 MG capsule TAKE 1 CAPSULE BY MOUTH 2 TIMES A DAY NEEDED FOR CONSTIPATION 01/26/20 Active EPINEPHrine 0.3 mg/0.3 mL auto-injector INJECT INTRAMUSCULARLY NEEDED ANAPHYLAXIS 01/17/20 Active ezetimibe (ZETIA) 10 mg tablet Take 1 tablet by mouth every evening. 06/14/19 Active ADVAIR DISKUS 250-50 mcg/dose DISKUS Inhale 2 puffs into the lungs daily. 01/26/20 Active lidocaine (LIDODERM) 5 % Place 1 patch onto the skin as needed. 08/11/19 Active LORazepam (ATIVAN) 1 MG tablet Take 1 mg by mouth daily as needed. 01/23/20 Active montelukast (SINGULAIR) 10 mg tablet Take 10 mg by mouth nightly at bedtime. 01/21/20 Active omeprazole (PRILOSEC) 20 MG capsule Take 20 mg by mouth daily. 02/16/20 Active ondansetron (ZOFRAN) 4 MG tablet Take 4 mg by mouth as needed. 01/27/20 Active oxyCODONE 5 MG immediate release tablet TAKE 1 TABLET BY MOUTH EVERY 4-6 HOURS IF NEEDED FOR SEVERE PAIN. 02/12/20 Active rosuvastatin (CRESTOR) 20 MG tablet Take 20 mg by mouth nightly at bedtime. 01/27/20 Active VIAGRA 100 mg tablet TAKE 1 TABLET 1 HOUR BEFORE SEXUAL RELATIONS ONCE DAILY NEEDED. 02/03/20 Active sodium chloride (HYPERSAL) 7 % Nebu INHALE 4 ML VIA NEBULIZER TWICE A DAY X30 DAYS 09/01/19 Active BD INTEGRA SYRINGE 3 mL 25 gauge x 1 Syrg USE 1 SYRINGE BY INTRAMUSCULAR ROUTE ONCE A MONTH FOR VITMAIN B12 INJECTIONS 01/16/20 Active tiZANidine (ZANAFLEX) 4 MG tablet Take 4 mg by mouth daily. 02/11/20 Active zolpidem (AMBIEN) 10 mg tablet TAKE 1 TABLET BY ORAL ROUTE ONCE A DAY AT BEDTIME 12/29/19 Active loratadine (CLARITIN) 10 mg tablet Take 10 mg by mouth daily. Active albuterol (ACCUNEB) 0.63 mg/3 mL nebulizer solution Take 1 ampule by nebulization as needed for wheezing. Active cyclobenzaprin e (FLEXERIL) 10 MG tablet Take 10 mg by mouth 2 (two) times a day as needed. 10/16/19 Active hydrOXYzine (VISTARIL) 50 MG capsule Take 50 mg by mouth every 6 (six) hours as needed. 10/10/19 Active traMADoL (ULTRAM) 50 mg tabletIndicati ons:Facial nerve disorder Take 1 tablet (50 mg total) by mouth every 6 (six) hours as needed for pain (specific location in comments). 24 tablet 10/20/19 Active erythromycin (ROMYCIN) ophthalmic ointmentIndica tions:Facial nerve disorder Apply twice daily to incision of upper eyelid. 7 g 1 10/23/19 Active methylPREDNISo lone (MEDROL DOSEPACK) 4 mg tablet follow package directions 21 tablet 12/15/19 Active Active Problems No known active problems Family History Medical History Relation Comments Cancer Neg Hx Social History Tobacco Use Types Packs/Day Years [...] Sign Reading Time Taken Comments Blood Pressure 149/95 10/18/2022 1:15 PM EDT Pulse 71 10/18/2022 12:15 PM EDT Temperature 36.4 C (97.6 F) 10/18/2022 12:15 PM EDT Respiratory Rate 16 10/18/2022 7:16 AM EDT Oxygen Saturation 98% 10/18/2022 1:15 PM EDT Inhaled Oxygen Concentration - - Weight 133.4 kg (294 lb) 10/18/2022 7:16 AM EDT Height 180.3 cm (5' 11 ) 10/18/2022 7:16 AM EDT Body Mass Index 41 10/18/2022 7:16 AM EDT Plan of Treatment Health Maintenance Due Date Last Done Comments LIPID PANEL 1958 DEPRESSION SCREENING 1970 SMOKING Hx and SMOKELESS TOBACCO SCREENING 1971 HEPATITIS C SCREENING 01/23/1976 SCREENING FOR DIABETES 1993 COLOGUARD 2003 COLONOSCOPY 2003 COLORECTAL CANCER SCREENING 2003 FIT TEST 2003 FOBT 2003 SIGMOIDOSCOPY 2003 VIRTUAL COLONOSCOPY 2003 RSV VACCINE (1 - Risk 60-74 years 1-dose series) 2018 ZOSTER VACCINES (2 of 2) 10/20/2022 08/25/2022 PNEUMOCOCCAL VACCINES (50+ years) (2 of 2 - PCV) 11/06/2022 11/06/2021 ABDOMINAL AORTIC ANEURYSM (AAA) SCREENING 2023 COVID-19 VACCINE ( - season) 2023 11/27/2021, 03/23/2021, 10/03/2020, Additional history exists INFLUENZA VACCINE (#1) 2024 , 01/03/2021, 11/28/2019, Additional history exists Adult Td,Tdap Booster 11/19/2027 11/18/2017, 10/02/2 009 HEPATITIS A VACCINES Aged Out No long er eligible based on patient's age to complete this topic HIB VACCINES Aged Out No longer eligi ble based on patient's age to complete this topic MENINGOCOCCAL VACCINES (ACWY) Aged Out No longer eligible based on patient's age to complete this topic MENINGOCOCCAL VACCINES (B) Aged Out N o longer eligible based on patient's age to complete this topic Medical Devices Not on file Insurance [employer] SUPPLEMENT [employer]EX SUPPLEMENT [employer] SUPPLEMENT [employer] SU[employer] SU[employer]EX SUPPLEMENT Advance Directives For more information, please contact: [phone] (9AM - 5PM [facility], Saturday-Saturday) Documents on File Type Date Recorded 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 It is not the complete legal health record.[facility]
--- OUTSIDE RECORDS SUMMARY | 2024-10-22 14:06 | XMS_ITS | Encounter Summary ---
Author Organization [employer] Address [address] [facility] 7 [place] [address] Care Team Providers Care Crab Fisher Name Role Phone Handy Elias MD Primary Care Provider [phone] Reason for Visit * Reason Onset Date Comments Med Refill 09/23/2023 Encounter Details Date Type Department Care Team ([facility] st Contact Info) Description 09/23/2023 Telephone [facility] [address] [place], [place] [phone] Handy Elias MD [address] [place], [place] [phone] Med Refill Social History Tobacco Use Types [...] immediate release tablet To be sent to: [facility]/pharmacy #[id number] - [place] LEWIS - [address] [place] [address] AT [address] [facility] documented in this encounter Plan of Treatment Upcoming Encounters Date Type Department Care Team (Late st Contact Info) Description 11/05/2024 4:00 PM EDT Office Visit [facility] MED & PEDS [address] [place] [address] Handy Elias MD [address] [place] [address] 11/09/2024 2:30 PM EDT Telemedicine [facility] MED & PEDS [address] [place] [address] Tessa Cox RN [address] [place] [address] documented as of this encounter Visit Diagnoses Not on filedocumented in this encounter Care Teams Crab Fisher Relationship Specialty Start Date End Date Handy Elias MD [address] [place] [address] PCP - General Internal Medicine 11/17/12 documented as of this encounter
--- OUTSIDE RECORDS SUMMARY | 2024-10-22 14:06 | XMS_ITS | Encounter Summary ---
Author Organization [employer] Address [address] [facility] 7t [place] [address] Care Team Providers Care Back Closer Name Role Phone Handy Elias MD Primary Care Provider [phone] Encounter Details Date Type Department Care Team ([facility] st Contact Info) Description 08/12/2024 Orders Only [facility] MED & PEDS [address] [place], [place] [phone] Handy Elias MD [address] [place], [place] [phone] Other insomnia (Primary Dx) Social History Tobacco Use Types [...] Description 11/05/2024 4:00 PM EDT Office Visit [facility] MED & PEDS [address] [place] [address] Handy Elias MD [address] [place] [address] 11/09/2024 2:30 PM EDT Telemedicine [facility] MED & PEDS [address] [place], [place] [phone] Tessa Cox RN [address] [place] [address] documented as of this encounter Procedures Procedure Name Priority Date/Time Associated Diagnosis Comments XR CHEST 2 VIEWS Routine 09/04/2024 2:58 PM EDT documented in this encounter Results * XR Chest 2 Views (09/04/2024 2:58 PM EDT) Anatomical Region Laterality Modality Chest Radiographic Ame ging 09/04/2024 2:58 PM EDT Narrative 09/04/2024 3:14 PM EDT [address] [address] XRay Report Signed Patient: Henri Espino MR#: [id number] [birth year] : 1960 Acct:[id number] Age/Sex: 64 / M ADM Date: 09/04/24 Loc: HO.XRAY Attending Dr: Stephen Bahena MD Ordering Physician: Stephen Bahena MD Date of Service: 09/04/24 Procedure(s): XR chest 2V Accession Number(s): [id number] cc: Handy Elias MD; Stephen Bahena MD EXAMINATION: XR CHEST CLINICAL INFORMATION: J40 - Bronchitis, not specified as acute or chronic COMPARISON: March 23, 2024 TECHNIQUE: 2 views of the chest were obtained. FINDINGS: No consolidation, pleural effusion or pneumothorax. No hyperinflation. Cardiomediastinal silhouette size is normal. Multilevel thoracic and upper lumbar spondylosis. Osteopenia versus osteoporosis. Patient's large body habitus/obesity. XR/XR chest 2V IMPRESSION: No acute airspace disease. Electronically signed by: Easton Arthur MD 09/04/2024 03:11 PM EDT Dictated By: Easton Bolivar MD Signed By: <Electronically signed by Easton Meng MD in OV> 09/04/24 1511 DD/ 1458 TD/TT: 09/04/24 [address] Booker: Procedure Note Donotuseinterpreter, Image - 09/04/2024 [place] [address] XRay Report Signed Patient: Henri Espino FMR#: [id number] 79 : 1960cct:[id number] Age/Sex: 64 / MADM Date: 09/04/24 Loc: HO.XRAY Attending Dr: Stephen Bahena MD Ordering Physician: Stephen Bahena MD Date of Service: 09/04/24 Procedure(s): XR chest 2V Accession Number(s): [id number] cc: Handy Elias MD; Stephen Bahena MD EXAMINATION: XR CHEST CLINICAL INFORMATION: J40 - Bronchitis, not specified as acute or chronic COMPARISON: March 23, 2024 TECHNIQUE: 2 views of the chest were obtained. FINDINGS: No consolidation, pleural effusion or pneumothorax. No hyperinflation. Cardiomediastinal silhouette size is normal. Multilevel thoracic and upper lumbar spondylosis. Osteopenia versus osteoporosis. Patient's large body habitus/obesity. XR/XR chest 2V IMPRESSION: No acute airspace disease. Electronically signed by: Easton Arthur MD 09/04/2024 03:11 PM EDT RP Dictated By: Easton Bolivar MD Signed By: <Electronically signed by Easton Meng MDin OV> 09/04/24 1511 DD/ 1458 TD/TT: 09/04/24 [address] Booker: [facility] External Provider IMG XR PROCEDURES Final Result documented in this encounter Visit Diagnoses Diagnosis Other insomnia- Primary documented in this encounter Additional Health Concerns Assessment Noted Time PHQ-9 Depression Total Score: 2 05/09/19 25 2:07 PM EDT documented as of this encounter Care Teams Back Closer Relationship Specialty Start Date End Date Handy Elias MD [address] [place] [address] PCP - General Internal Medicine 11/17/12 documented as of this encounter
--- OUTSIDE RECORDS SUMMARY | 2024-10-22 14:06 | XMS_ITS | Encounter Summary ---
Author Organization [facility] Address [address] [facility] 7 [place] [address] Care Team Providers Care Healthcare Science Specialist Name Role Phone Handy Elias MD Primary Care Provider [phone] Encounter Details Date Type Department Care Team ([facility] st Contact Info) Description 11/15/2023 Orders Only [facility] MED & PEDS [address] [place], [place] [phone] Handy Elias MD [address] [place], [place] [phone] Social History Tobacco Use Types Packs/Day Years [...] [facility] [address] [place] [address] Handy Elias MD [address] [place] [address] 11/09/2024 2:30 PM EDT Telemedicine [facility] MED & PEDS [address] [place] [address] Tessa Cox RN [address] [place] [address] documented as of this encounter Visit Diagnoses Not on filedocumented in this encounter Care Teams Healthcare Science Specialist Relationship Specialty Start Date End Date Handy Elias MD [address] [place] [address] PCP - General Internal Medicine 11/17/12 documented as of this encounter
--- OUTSIDE RECORDS SUMMARY | 2024-10-22 14:06 | XMS_ITS | Encounter Summary ---
Author Organization [employer] Address [address] [place] [address] 7 [place] [address] Care Team Providers Care Exercise Physiologist Name Role Phone Handy Elias MD Primary Care Provider [phone]- [phone] Encounter Details Date Type Department Care Team (Late st Contact Info) Description 05/14/2023 Orders Only [facility] MED & PEDS [address] [place], [place] [phone] Handy Elias MD [address] [place], [place] [phone] Mood disorder (CMS/HCC) (Primary Dx) Social History [...] Description 11/05/2024 4:00 PM EDT Office Visit [facility] & PEDS [address] [place] [address] Handy Elias MD [address] [place] [address] 11/09/2024 2:30 PM EDT Telemedicine [facility] MED & PEDS [address] [place] [address] Tessa Cox RN [address] [place] [address] documented as of this encounter Visit Diagnoses Diagnosis Mood disorder (CMS/HCC)- Primary Unspecified episodic mood disorder documented in this encounter Care Teams Exercise Physiologist Relationship Specialty Start Date End Date Handy Elias MD [address] [place] [address] PCP - General Internal Medicine 11/17/12 documented as of this encounter
--- OUTSIDE RECORDS SUMMARY | 2024-10-22 14:06 | XMS_ITS | Encounter Summary ---
Author Organization [employer] Address [address] [facility] 7 [place] [address] Care Team Providers Care Rn Circulating Name Role Phone Handy Elias MD Primary Care Provider [phone] Reason for Visit * Reason Onset Date Comments Call Back Request 06/19/2023 Encounter Details Date Type Department Care Team (Late st Contact Info) Description 06/19/2023 Telephone [facility] MEDICINE [address] [place], [place] [phone] Handy Elias MD [address] [place] [address] Call Back Request Social History Tobacco Use [...] Description 11/05/2024 4:00 PM EDT Office Visit [facility] MED & PEDS [address] [place] [address] Handy Elias MD [address] [place] [address] 11/09/2024 2:30 PM EDT Telemedicine [facility] MED & PEDS [address] [place] [address] Tessa Cox RN [address] [place] [address] documented as of this encounter Visit Diagnoses Not on filedocumented in this encounter Care Teams Rn Circulating Relationship Specialty Start Date End Date Handy Elias MD [address] [place] [address] PCP - General Internal Medicine 11/17/12 documented as of this encounter
--- OUTSIDE RECORDS SUMMARY | 2024-10-22 14:06 | XMS_ITS | Encounter Summary ---
Author Organization [employer] Address [address] [place] [address] 7 [place] [address] Care Team Providers Care Creative Technologist Name Role Phone Handy Elias MD Primary Care Provider [phone]- [phone] Encounter Details Date Type Department Care Team (Late Contact Info) Description 10/10/2022 Orders Only [facility] MED & PEDS [address] [place], [place] [phone] Handy Elias MD [address] [place], [place] [phone] Social History Tobacco Use Types Packs/Day Years [...] Description 11/05/2024 4:00 PM EDT Office Visit [facility] MED & PEDS [address] [place] [address] Handy Elias MD [address] [place] [address] 11/09/2024 2:30 PM EDT Telemedicine [facility] MED & PEDS [address] [place], [place] [phone] Tessa Cox MARITA [address] [place] [address] documented as of this encounter Visit Diagnoses Not on filedocumented in this encounter Care Teams Creative Technologist Relationship Specialty Start Date End Date Handy Elias MD [address] [place] [address] PCP - General Internal Medicine 11/17/12 documented as of this encounter
--- OUTSIDE RECORDS SUMMARY | 2024-10-22 14:06 | XMS_ITS | Clinical Summary ---
Author Organization [employer] Address [address] [place] [address] 7t [place] [address] Care Team Providers Care Bench Lathe Operator Name Role Phone Handy Elias MD Primary Care Provider +1 [phone] Allergies Active Allergy Reactions Criticality Noted Date [...] bedtime for sleep. 30 capsule 024 Active hydrOXYzine pamoate (Vistaril) 50 MG capsuleIndicati [...] needed for opioid reversal. 2 each 1 Active amLODIPine (Norvasc) 5 MG tabletIndicatio ns:Primary hypertension Take 2 tablets (10 mg) by mouth Once per day. daily 90 tablet 3 025 Active sildenafil (Viagra) 100 MG tabletIndicatio ns:Erectile disorder Take 1 tablet (100 mg) by mouth if needed for erectile dysfunction. Every day as needed approximately 1 hour before sexual activity 30 tablet 3 025 Active omeprazole (PriLOSEC) [address] capsuleIndicati ons:Gastroesoph ageal reflux disease without esophagitis TAKE 1 CAPSULE BY MOUTH EVERY DAY BEFORE A MEAL 90 capsule 3 025 Active zolpidem CR (Ambien CR) 12.5 MG ER tabletIndicatio ns:Other insomnia Take 1 tablet (12.5 mg) by mouth if needed at bedtime for sleep. Do not crush, chew, or split. 30 tablet 025 Active zolpidem (Ambien) 5 MG tabletIndicatio ns:Other insomnia Take 2 tablets (10 mg) by mouth if needed at bedtime for sleep. 60 tablet 025 2025 Active oxyCODONE (Roxicodone) 5 MG immediate release tabletIndicatio ns:Chronic pain syndrome Take 1 tablet (5 mg) by mouth every 4 (four) hours if needed for severe pain for up to 28 days. 168 tablet 025 2024 Active zolpidem (Ambien) 10 MG tabletIndicatio ns:Primary insomnia TAKE 1 TABLET BY MOUTH EVERY DAY AT BEDTIME NEEDED FOR SLEEP 30 tablet 025 Active oxyCODONE (Roxicodone) 5 MG immediate release tabletIndicatio ns:Chronic pain syndrome Take 1 tablet (5 mg) by mouth every 4 (four) hours if needed for severe pain for up to 28 days. Do not start before August 27, 2024. 168 tablet 025 2024 Discontinued(R eorder (will not trigger notification to Pharmacy)) zolpidem (Ambien) 10 MG tabletIndicatio ns:Primary insomnia [...] Encounters Date Type Department Care Team Description 10/13/2024 Refill [facility] MEDICINE [address] [place] [address] Handy Elias MD Primary insomnia 10/05/2024 Orders Only GENERIC EXTERNAL DATA DEPARTMENT Provider, Generic External Data 10/01/2024 Refill [facility] MEDICINE [address] [place] [address] Handy Elias MD Chronic pain syndrome 09/15/2024 Refill [facility] [address] [place] [address] Handy Elias MD Primary insomnia 08/26/2024 Refill [facility] [address] [place] [address] Handy Elias MD Chronic pain syndrome 08/19/2024 Refill [facility] [address] [place] [address] Handy Elias MD 08/14/2024 Telephone [facility] MED & PEDS [address] [place] [address] Tessa Cox RN 08/12/2024 2:15 PM EDT Telemedicine [facility] MED & PEDS [address] [place] [address] Tessa Cox RN Chronic pain syndrome 08/12/2024 Orders Only [facility] MED & PEDS [address] [place] [address] Handy Elias MD Other insomnia (Primary Dx) 08/12/2024 Telephone [facility] MED & PEDS [address] [place] [address] Tessa Cox RN 08/12/2024 Travel 08/12/2024 Telephone [facility] MED & PEDS [address] [place] [address] Tessa Cox RN 07/31/2024 Telephone [facility] MED & PEDS [address] [place] [address] Handy Elias MD Medication Question 07/30/2024 4:00 PM EDT Office Visit [facility] MED & PEDS [address] [place] [address] Handy Elias MD Acute non-recurrent frontal sinusitis (Primary Dx); Other insomnia; Primary hypertension 07/30/2024 Travel 07/28/2024 Refill [facility] MED & PEDS [address] [place] [address] Tessa Cox RN Chronic pain syndrome 07/28/2024 Telephone [facility] MEDICINE [address] [place] [address] Handy Elias MD Med Refill 07/23/2024 Refill [facility] MEDICINE [address] [place] [address] Handy Elias MD Primary insomnia from Last 3 Months Immunizations Immunization Administration Dates Next Due Influenza Injectable Quadriv alant Preservative Free IIV4 MDCK 11/28/2019 Influenza injectable quadriv alent IIV4 with preservative 11/18/2017,12/19/2015 Influenza injectable quadriv alent preservative free 01/03/2021,11/20/2016,12/08/2014 Influenza, IIV3, injectable 12/03/2013 Influenza, Split (incl. dameon fied surface antigen) 11/24/2012,12/26/2011 Moderna Covid-19 Vaccine 12+ 03/23/2021 Pfizer Covid-19 Vaccine 12+ 10/03/2020, 1 Pneumococcal Conjugate PCV 20 05/08/2024 RSV-MAB, Unspecified [...] Sign Reading Time Taken Comments Blood Pressure 162/95 07/30/2024 4:01 PM EDT Pulse 71 07/30/2024 4:01 PM EDT Temperature 36.8 C (98.2 F) 07/30/2024 4:01 PM EDT Respiratory Rate 18 07/30/2024 4:01 PM EDT Oxygen Saturation 98% 07/30/2024 4:01 PM EDT Inhaled Oxygen Concentration - - Weight 123 kg (272 lb) 07/30/2024 4:01 PM EDT Height 180.3 cm (5' 11 ) 07/30/2024 4:01 PM EDT Body Mass Index 37.94 07/30/2024 4:01 PM EDT Plan of Treatment Upcoming Encounters Date Type Department Care Team (Late st Contact Info) Description 11/05/2024 4:00 PM EDT Office Visit [facility] MED & PEDS [address] [place] [address] Handy Elias MD [address] [place] [address] 11/09/2024 2:30 PM EDT Telemedicine [facility] MED & PEDS [address] [place] [address] Tessa Cox RN [address] [place] [address] Health Maintenance Due Date Last Done Comments CT Colonography 1960 FIT DNA/Cologuard 1960 FIT 1960 FOBT 1960 Sigmoidoscopy 1960 Hepatitis C Screening 01/23/1976 Hepatitis A Vaccines (1 of 2 - Risk 2-dose series) 1977 Hepatitis B Vaccines (1 of 3 - Risk 3-dose series) 2018 Colonoscopy 05/29/2023 05/28/2013 Colorectal Cancer Screening 05/29/2023 COVID-19 Vaccine ( season) 2023 11/27/2021, 03/23/2021, 10/03/2020, Additional history exists Influenza Vaccine (#1) 2024 , 12/24/2022, 12/15/2021, Additional history exists Alcohol/Substance Use Screening 03/19/2025 03/19/2024 SDOH Screening 05/01/2025 05/01/2024 Depression Screening 05/08/2025 05/08/2024, 05/09/19 25 Tobacco Screening 07/30/2025 07/30/2024 Lipid Panel 01/01/2027 01/01/2022, 07/26, 12/09/2020, Additional history exists DTaP/Tdap/Td Vaccines (2 - Td or Tdap) 11/19/2027 11/18/2017, 11/26/2008 Zoster Vaccines Completed 12/12/2022, 08/25/2022 Pneumococcal Vaccine: 50+ Years Completed 05/08/2024, 11/06/2021 RSV Patients and Patients Aged 60 years or older Completed 06/13/2024 RSV under 20 months Aged Out 06/13/2024 [...] Procedure Name Priority Date/Time Associated Diagnosis Comments CELL BLOCK Routine 10/05/2024 3:02 PM EDT GRAM STAIN RESULT (NON ORDERABLE) Routine 10/05/2024 3:01 PM EDT XR CHEST 2 VIEWS Routine 09/04/2024 2:58 PM EDT ZZZ HISTORICAL LIPID PANEL Routine 01/01/2022 11:44 AM EST HM COLONOSCOPY Routine 05/28/2013 from Last 3 Months or Most Recently Relevant to Health Maintenance Results * Cell Block (10/05/2024 3:02 PM EDT) 10/05/2024 3:02 PM EDT 10/06/2024 9:50 AM EDT [facility] - 10/08/2024 12:50 PM EDT ----- ------- Name: Henri Espino Age/Sex: 64/M : 1960 Unit#: [id number] Attend Dr: Stephen Bahena MD Re10/05/24 Status: [facility] Location: [facility] Disch: ----- ------- SPEC : [id number] RECD: 10/06/24 STATUS: CAS GARZA NUM: [id number] [place]: 10/05/24-1502 [facility] DR: Stephen Bahena MD ENTERED: 10/06/24-1106 SP TYPE: Cytology OTHR DR: Handy Elias MD ORDERED: Cell Block, Cyto-enhanced Diagnosis Lung, bilateral, bronchial washings (cytology and cell block): Negative for malignant cells. Comment: Examination of monolayer preparation and cell block slides show predominantly mucus and red blood cells, with scattered benign bronchial epithelium, alveolar macrophages, benign squamous cells, and inflammatory cells. Clinical History Pre-Op Dx: Chronic bronchitis Post-Op Dx: Tracheobronchomalacia Material Received Bilateral washings Gross Description Received is 36 cc of blood-tinged fluid from which a ThinPrep slide and cell block are prepared. IHC S/NG Disclaimer NOTE: Unless otherwise stated, all tissue is formalin-fixed and paraffin-embedded. Some or all of the immunohistochemical tests reported herein may have been developed and their performance characteristics determined by [facility]. They have not been cleared or approved by the U.S. Food and Drug Administration (FDA). However, the FDA has determined that such clearance or approval is not necessary. This laboratory is certified under the Clinical Laboratory Improvement Amendments of 1988 (CLIA) as qualified to perform high complexity clinical laboratory testing. Copies To: Handy Elias MD [address] [id number] Stephen Bahena MD [facility] [place] Pulmonology Services [address] [place] [phone] CONTINUED ON NEXT PAGE ----- ------- Name: SrinivasHenri Bal Age/Sex: 64/M : 1960 Unit#: [id number] Attend Dr: Stephen Bahena MD Re10/05/24 Status: [facility] Location: [facility] Disch: ----- ------- SPEC : [id number] RECD: 10/06/24 STATUS: CAS GARZA NUM: [id number] [place]: 10/05/24-1501 [facility] DR: Stephen Bahena MD ENTERED: 10/06/24 SP TYPE: Cytology OTHR DR: Handy Elias MD ORDERED: Cell Block, Cyto-enhanced Copies To: (Continued) [phone] ----- ------- Signed (signature on file) Bertha Schwartz 10/08/24 5940 ----- ------- END OF REPORT Generic External Data Provider LAB CYTOLOGY SARAH LIAO Final Result [facility] [address] [place] [phone] * Gram Stain Result (10/05/2024 3:01 PM EDT) 10/05/2024 3:01 PM EDT 10/05/2024 3:21 PM EDT Comment:Bronc Wash Narrative [facility] - 10/07/2024 8:15 AM EDT bilateral washings Gram stain results: 1+ polys 1+ Gram-positive cocci bilateral washings Routine Culture Report - external Routine Culture 24,000 CFU/ML Mixed respiratory martín Specimen Source: Bronchial Washings us Generic External Data Provider HISTORICAL/NON OR DERABLE LABS Final Result Performing Organization Address City/State/[facility] Co de Phone Number [facility] [address] [place] [phone] * XR Chest 2 Views (09/04/2024 2:58 PM EDT) Anatomical Region Laterality Modality Chest Radiographic Ame ging 09/04/2024 2:58 PM EDT Narrative 09/04/2024 3:14 PM EDT [address] [address] XRay Report Signed Patient: Henri Espino MR#: [id number] 81 : 1960 Acct:[id number] Age/Sex: 64 / M ADM Date: 09/04/24 Loc: [facility] Attending Dr: Stephen Bahena MD Ordering Physician: Stephen Bahena MD Date of Service: 09/04/24 Procedure(s): XR chest 2V Accession Number(s): [id number] cc: Handy Elias MD; Stephen Bahena MD [...] 09/04/24 1511 DD/ 1458 TD/TT: 09/04/24 1500 Line Ordering Clinician: Procedure Note Eberotpaulter, Image - 09/04/[address] [address] XRay Report Signed Patient: Henri Espino FMR#: [id number] [birth year] : 8Acct:[id number] Age/Sex: 64 / MADM Date: 09/04/24 Loc: HO.XRAY Attending Dr: Stephen Bahena MD Ordering Physician: Stephen Bahena MD Date of Service: 09/04/24 Procedure(s): XR chest 2V Accession Number(s): [id number] cc: Handy Elias MD; Stephen Bahena MD [...] 09/04/24 1511 DD/ 1458 TD/TT: 09/04/24 1500 Line Ordering Clinician: [facility] External Provider IMG XR PROCEDURES Final Result * LIPID PANEL (01/01/2022 11:44 AM EST) Cholesterol 208 mg/dL [facility] Comment: Desirable Cholesterol: less than 200 mg/dL Borderline High Cholesterol: 200-239 mg/dL High Cholesterol: greater than 239 mg/dL HDL Cholesterol 43 mg/dL [facility] Comment: Desirable HDL: greater than 40 mg/dL Note: This HDL assay may give artificially low results in patients with liver disease. LDL Cholesterol Calculated 149 mg/dl [facility] Comment: Desirable LDL: less than 100 mg/dL Near Optimal/Above Optimal LDL: 110-129 mg/dL Borderline High LDL: 130-159 mg/dL High LDL: 160-189 mg/dL Very High LDL: greater than or equal to 190 mg/dL Triglycerides 82 mg/dL [facility] Comment: Desirable Triglyceride: less than 150 mg/dL Borderline High Triglyceride 150-199 mg/dL High Triglyceride: 200-499 mg/dL Very High Triglyceride: greater than or equal to 5OO mg/dL 01/01/2022 11:4 4 AM EST Historical Provider HISTORICAL/NON ORDERABLE LABS Final Result [facility] * Colonoscopy (05/28/2013) Colonoscopy Performed Historical Provider HEALTH MAINTENANCE Final Result from Last 3 Months or Most Recently Relevant to Health [place] [id number] [facility] MEDEX CARE Care Teams Bench Lathe Operator Relationship Specialty Start Date End Date Handy Elias MD [address] [place] [address] [place] [address] PCP - General Internal Medicine 11/17/12
--- OUTSIDE RECORDS SUMMARY | 2024-10-22 14:06 | XMS_ITS | Encounter Summary ---
Author Organization [facility] Address [address] [place] [phone] Phone Care Team Providers Care Bow Maker Machine Tender Name Role Phone Handy Elias MD Primary Care Pr ovider Encounter Details Date Type Department Care Team (Late st Contact Info) Description 10/18/2022 Procedure Pass [facility] DEPT [address] [place] [address] Social History Tobacco Use Types Packs/Day Years [...] on filedocumented in this encounter Care Teams Bow Maker Machine Tender Relationship Specialty Start Date End Date Handy Elias MD PCP - General Internal Medicine 08/11/20 documented as of this encounter Additional Source Comments The information contained in this document represents components of the legal health record. It is not the complete legal health record.[facility]
--- OUTSIDE RECORDS SUMMARY | 2024-10-22 14:06 | XMS_ITS | Encounter Summary ---
Author Organization [employer] Address [address] [facility] 7 [place] [address] Care Team Providers Care Flake Cutter Operator Name Role Phone Handy Elias MD Primary Care Provider [phone]- [phone] Reason for Visit * Reason Onset Date Comments Med Refill 09/18/2023 Encounter Details Date Type Department Care Team ([facility] st Contact Info) Description 09/18/2023 Telephone [facility] MEDICINE [address] [place] [address] Handy Elias MD [address] [place], [place] [phone] Med Refill Social History Tobacco Use Types [...] refill : Zolpidem To be sent to: [facility]/pharmacy #[id number] - [place] - [address] [facility] [address], [place] [address] documented in this encounter Plan of Treatment Upcoming Encounters Date Type Department Care Team (Late st Contact Info) Description 11/05/2024 4:00 PM EDT Office Visit [facility] MED & PEDS [address] [place] [address] Handy Elias MD [address] [place] [address] 11/09/2024 2:30 PM EDT Telemedicine [facility] MED & PEDS [address] [place] [address] Tessa Cox, MARITA [address] [place] [address] documented as of this encounter Visit Diagnoses Not on filedocumented in this encounter Care Teams Flake Cutter Operator Relationship Specialty Start Date End Date Handy Elias MD [address] [place] [address] PCP - General Internal Medicine 11/17/12 documented as of this encounter
== END 2024-10-22 14:05 | disposition home or self-care (01) ==
LOC: HO.HPS 13:27
PROVIDERS: PCP Internal Medicine; Visit Provider Hospitalist
DX: R05.9 Cough, unspecified (principal); J98.11 Atelectasis; J39.8 Other specified diseases of upper respiratory tract; J38.7 Other diseases of larynx; G47.33 Obstructive sleep apnea (adult) (pediatric); Z99.89 Dependence on other enabling machines and devices; J44.9 Chronic obstructive pulmonary disease, unspecified; R05.3 Chronic cough; J30.9 Allergic rhinitis, unspecified
CPT/HCPCS: 99215; G2211

== ENCOUNTER → 2024-10-22 13:26 | Outpatient (BNVA) | payer MEDICARE, SELFPAY | PROVIDERS: PCP Internal Medicine; Visit Provider Hospitalist | DX: R05.3 Chronic cough (principal); J98.11 Atelectasis; J39.8 Other specified diseases of upper respiratory tract; J38.7 Other diseases of larynx; J44.9 Chronic obstructive pulmonary disease, unspecified; G47.33 Obstructive sleep apnea (adult) (pediatric); Z99.89 Dependence on other enabling machines and devices | CPT/HCPCS: 99212 ==

== ENCOUNTER 2025-02-09 15:00 | Outpatient (REF) | payer MEDICARE, SELFPAY ==
--- OUTSIDE RECORDS SUMMARY | 2022-01-26 | XMS_ITS | Encounter Summary ---
Author Organization [facility] Address [address] [place] [address] Phone Care Team Providers Care Bumper Straightener Name Role Phone Handy Elias MD Primary Care Pr ovider Encounter Details Date Type Department Care Team (Late st Contact Info) Description 01/26/2022 Hospital Encounter [facility] [address] [place] [phone] Kenyetta Rubio MD [address] [place] [phone] Maryan@ [email or web address] [email or web address] Social History Tobacco Use Types Packs/Day Years [...] on filedocumented in this encounter Care Teams Bumper Straightener Relationship Specialty Start Date End Date Handy Elias MD PCP - General Internal Medicine 08/11/20 documented as of this encounter Additional Source Comments The information contained in this document represents components of the legal health record. It is not the complete legal health record.[facility]
--- OUTSIDE RECORDS SUMMARY | 2023-03-21 08:30 | XMS_ITS | Continuity of Care Document ---
Author Organization [facility] Address [address] [place] [address] Phone Care Team Providers Care Dimension Warehouse Supervisor Name Role Phone Adria LACKEY, RVRalf, LEÓN, Brian Unavailable U navailable Allergies, Adverse Reactions, Alerts Substance Reaction Status Criticality No Known Allergies Active No Inform ation Medications Medication Instructions Dosage Dose Quantity Effective Dates (start - stop) Status Indication Fill Status Comments CYCLOBENZAPR INE HCL (unknown strength) Not Availab le - Active GABAPENTIN (unknown strength) Not Availab le - Active COLACE (unknown strength) Not Availab le - Active OXYCODONE HCL (unknown strength) Not Availab le - Active ADVAIR DISKUS (unknown strength) Not Availab le - Active OMEPRAZOLE (unknown strength) Not Availab le - Active ZYRTEC (unknown strength) Not Availab le - Active NORVASC (unknown strength) Not Availab le - Active CRESTOR (unknown strength) Not Availab le - Active CRESTOR (unknown strength) Not Availab le - Active ZETIA (unknown strength) Not Availab le - Active ZOLPIDEM TARTRATE (unknown strength) Not Availab le - Active VITAMIN D3 (unknown strength) Not Availab le - Active CALCIUM (unknown strength) Not Availab le - Active VITAMIN B81-DZYSV ACID (unknown strength) Not Availab le - Active Procedures Procedure Date Office/Outpt E&M Established 15 Mins Feb Advance Directives Directive Yes / No Effective Date File Name Other Directive No N/A N/A WARNING:The information contained in this section is historical and is provided for information only and does not constitute a legal document or any assurance that the information is still accurate. Please verify the information with the kay of the legal document before using it for clinical purposes. Encounters Encounter Description Practice Location Reason(s) For Visit Diagnoses Date Provider Encounter Disposition Office/Outpt E&M Established 15 Mins [facility], [address] [place] [address] Dr Arshad 1000SuJonnathan desai [place], [id number], [place] tel:[phone] [place] Cramp and spasmRestless legs syndromeEssen tial (primary) hypertensionP ain in left lower legPain in left legLocalized edema 4 Adria LACKEY, RVRalf, LEÓN Torres. [address], [place] [address], [facility] [place] [place], [id number] , [place]. tel:[phone] [facility], [address] [place] [address] Dr Arshad 1000SuJonnathan desai [place], [id number], [place] [phone] [place] Encounter for follow-up examination after completed treatment for conditions other than malignant neVaricose veins of right lower extremity with pain Dec-1 - 3 Asim Del Cid. [address] [place] [address], [facility] [place], [address], [place]. tel:[phone] [facility], [address] [place] [address] Dr Arshad 1000SuJonnathan desai [place], [id number], [place] [phone] [place] Varicose veins of right lower extremity with other complications Dec-0 3 Doreen De Paz . [address], [facility] [address], [facility] [place] [place], [id number] , [place]. tel:[phone] [facility] MD [facility], [address] [place] [address] Dr Arshad 1000SuJonnathan desai [place], [id number], [place] tel:[phone] [place] Varicose veins of right lower extremity with other complications Dec-0 3 Asim Del Cid. [address], [address], [facility] [place], [address], [place]. tel:[phone] [facility], [address] [place] [address] Dr Arshad 1000Suite 1000Jonnathan [place], [id number], [place] tel:[phone] [place] Chronic venous hypertension (idiopathic) with other complications of bilateral lower extremity 3 Asim LACKEY FACS Ralf Del Cid. [address] [place] [address], [place] [address], [place], [address], [place]. tel:[phone] [facility], [address] [place] [address] Dr Arshad 1000Suite 1000Jonnathan [place], [id number], [place] tel:[phone] [place] Venous insufficiency (chronic) (peripheral) 3 Asim LACKEY FACS Ralf Del Cid. [address] [place] [address], [place] [address], [place], [address], [place]. tel:[phone] [place] MD [facility], [address] [place] [address] Dr Arshad 1000Suite 1000Jonnathan [place], [id number], [place] tel:[phone] [place] Venous insufficiency (chronic) (peripheral) 3 Asim Del Cid. [address] [place] [address], [place] [address], [place], [address], [place]. tel: [phone] [facility], [address] [place] [address] Dr Arshad 1000Suite 1000Jonnathan [place], [id number], [place] tel:[phone] [place] Venous insufficiency (chronic) (peripheral) 3 Asim Del Cid. [address] [place] [address], [place] [address], [place], [address], [place]. tel: [phone] [facility] MD [place], [address] [place] [address] Dr Arshad 1000Suite 1000Jonnathan [place], [id number], [place] tel:[phone] [place] Venous insufficiency (chronic) (peripheral)L ocalized edemaRestless legs syndromeEssen tial (primary) hypertensionP ruritus, unspecifiedFl ail joint, unspecified jointPain in right legPain in left legPain in right lower legPain in left lower legCramp and spasm Asim LACKEY FACS RVT LEÓN Del Cid. [address] [facility], [address], [place], [address], . tel:[phone] Family History Family Member Type Diagnosis Age At Onset No Information Payers Payer name Insurance type Identifiers Authorization(s) Com ments Medicare BIANKA GOEL ID: [id number] Name: Coverage Status Eligibility Check on: [id number] hip to Subscriber: selfPayer Address: [address], [place], [place], [id number], [place]ayer Phone: [phone] [facility] BIANKA JASSO r ID: [id number] Name: [employer]IRE Coverage Status Eligibility Check on: [id number] hip to Subscriber: selfPayer Address: [address], [place], [address], [place]ayer Phone: [phone] Social History Type Description Quantity Date Captured Comments Alcohol Use Details Unknown Caffeine Use Details Unknown Tobacco Use Status No Information Smoking Status Former Smoker Non-Smoking Tobacco Use Details : No Details Available : No Details Available Sex Male Current Gender Male (finding) Vital Signs Date / Time: Height Weight BMI Pulse Rate Blood Pressure Temperature Respiratory Rate Body Surface Area Head Circumference Head Circ. Percentile Wt./[place]. Percentile BMI percentile Pulse Ox Inhaled Ox 130.630 kg (288.00 lbs) 40.3 6 kg/m eter (2) 150/90 mm[Hg] Chief Complaint And Reason For Visit No Information Plan Of Treatment Date Type Action Status Goal Diet education completed Goal Tobacco cessation counseling completed Goal Tobacco cessation counseling completed Goal Tobacco cessation counseling completed Goal Tobacco cessation counseling completed Goal Diet education completed Referral Ordered: Weight management: Referral to physician timeframe: 3 Months (related to Body mass index (BMI) 40.0-44.9, adult) ordered Referral Ordered: Weight management: Referral to physician timeframe: 3 Months (related to Body mass index (BMI) 40.0-44.9, adult) ordered History Of Present Illness Encounter Date Complaint History Of Prese nt Illness No Information Functional Status Date Description Comments No Information Instructions Date Instruction Additional Infor efra Patient education booklet given Related to Pain in left lower leg Diet education Related to Body mass index (BMI) 40.0-44.9, adult Lifestyle education Related to B sara mass index (BMI) 40.0-44.9, adult Giving Encouragement to exercise Related to Body mass index (BMI) 40.0-44.9, adult Patient education booklet given Related to Venous insufficiency (chronic) (peripheral) Lifestyle education Related to B asra mass index (BMI) 40.0-44.9, adult Giving Encouragement to exercise Related to Body mass index (BMI) 40.0-44.9, adult Diet education Related to Body mass index (BMI) 40.0-44.9, adult Assessments Type Assessment Date No Information
--- NOTE | ~2025-02-09 | XR_ITS ---
EXAMINATION: XR RIBS 3 VIEWS MINIMUM WITH CHEST LEFT HISTORY: FALL COMPARISON: Comparison is made to the prior examination of the chest dated 09/04/2024. FINDINGS: A single PA view of the chest and 3 views of the left ribs are submitted. The lungs are expanded and clear. There is no pleural effusion, pneumothorax, or pulmonary vascular congestion in size. There is degenerative disc disease of the spine. There is a fracture deformity of the 3rd rib, of indeterminate age. XR/XR ribs LT min 3V w CXR1V IMPRESSION: Fracture deformity of the left 3rd rib, of indeterminate age. No acute cardiopulmonary abnormality. Electronically signed by: Brian Yost MD 02/10/2025 07:11 AM LILLIE
--- NOTE | ~2025-02-09 | XR_ITS ---
EXAMINATION: XR LUMBAR SPINE 4 OR MORE VIEWS HISTORY: Low back pain after a fall. COMPARISON: Comparison is made with the prior examination dated 01/09/2010. FINDINGS: AP, lateral, bilateral oblique, and coned down views of the lumbar spine are submitted. Osseous mineralization is normal. Five nonrib-bearing lumbar vertebral bodies are identified, maintaining normal height without evidence of fracture. There is slight spondylolisthesis of L4 on L5. There is mild to moderate degenerative disc disease with disc space narrowing and osteophyte formation. There is osteoarthritis of the facet joints. No definite spondylolysis. There is calcification of the abdominal aorta. XR/XR lumbar spine 4V min IMPRESSION: Mild to moderate degenerative disc disease. Slight spondylolisthesis of L4 on L5. Electronically signed by: Brian Yost MD 02/10/2025 07:14 AM LILLIE TOBIN
[2025-02-09 16:11] LABS: MANUAL DIFF FLAG NO
[2025-02-09 16:33] LABS: Hematocrit 45.7 % (42.0-52.0); Hemoglobin 14.3 g/dl (14.0-18.0); Imm Gran Abs Auto 0.09 X10*3/uL (0.00-0.03); Imm Gran Pct Auto 0.7 % (0.0-0.4); Lymphocytes Absolute Auto 4.2 X10*3/uL (1.2-4.9); Mean Corpuscular HGB Conc 31.3 g/dl (31.0-36.0); Mean Corpuscular Hemoglobin 28.5 pg (27.0-33.0); Mean Corpuscular Volume 91.2 fL (80.0-98.0); NRBC Abs Auto 0.000 X10*3/uL (0.0-0.012); NRBC Pct Auto 0.0 /100WBC (0.0-0.2); Platelet Count 656 X10*3/uL (160-400); Red Blood Count 5.01 X10*6/uL (4.60-5.80); White Blood Count 12.6 X10*3/uL (4.8-10.8)
[2025-02-09 17:01] LABS: Anion Gap 17 (12-20); Blood Urea Nitrogen 18 mg/dL (9-16); Calcium 10.3 mg/dL (8.4-10.2); Carbon Dioxide 25 mmol/L (22-29); Chloride 103 mmol/L (96-108); Estimated Glomerular Filt Rate 56; Potassium 4.9 mmol/L (3.3-5.1); Sodium 140 mmol/L (135-145)
--- OUTSIDE RECORDS SUMMARY | 2025-02-09 19:20 | XMS_ITS | Encounter Summary ---
Author Organization [employer] Address [address] [place] [address] 7 [place] [address] Care Team Providers Care Death Surveys Coder Name Role Phone Handy Elias MD Primary Care Provider [phone]- [phone] Encounter Details Date Type Department Care Team (Late Contact Info) Description 02/02/2022 Orders Only [facility] MEDICINE [address] [place], [place] [phone] Handy Elias MD [address] [place], [place] [phone] Cold intolerance of hand (Primary Dx); Primary [...] Department Care Team (Late Contact Info) Description 02/16/2025 4:00 PM EST Office Visit [facility] MED & PEDS [address] [place], [place] [phone] Handy Elias MD [address] [place], [place] [phone] 03/01/2025 1:00 PM EST Telemedicine [facility] MED & PEDS [address] [place] [address] Tessa Cox, MARITA [address] [place] [address] documented as of this encounter Procedures Procedure Name Priority Date/Time Associated Diagnosis Comments TSH W/REFLEX TO FT4 Routine 03/01/2022 1 1:16 AM EST Cold intolerance of hand documented in this encounter Results * TSH W/Reflex to FT4 (03/01/2022 11:16 AM EST) TSH w/Reflex to FT4 2.35 0.40 - 4.50 mIU/L [facility] 03/01/2022 11:1 6 AM EST 03/01/2022 11:16 AM EST Handy Elias MD LAB BLOOD ORDERABLES Final Result [facility] [address] [place] [address], [place] [address] [facility] [employer] [facility] [address] [facility], ([address]) [place] [phone] documented in this encounter Visit Diagnoses Diagnosis Cold intolerance of hand- Primary Primary insomnia Persistent disorder of initiating or maintaining sleep documented in this encounter Care Teams Death Surveys Coder Relationship Specialty Start Date End Date Handy Elias MD [address] [place] [address] PCP - General Internal Medicine 11/17/12 [facility] 12/19/24 documented as of this encounter
--- OUTSIDE RECORDS SUMMARY | 2025-02-09 19:20 | XMS_ITS | Encounter Summary ---
Author Organization [employer] Address [address] [facility] 7 [place] [address] Care Team Providers Care Sock Lining Stitcher Name Role Phone Handy Elias MD Primary Care Provider [phone]- [phone] Reason for Visit * Reason Onset Date Comments Med Refill 06/02/2024 Encounter Details Date Type Department Care Team (Late st Contact Info) Description 06/02/2024 Telephone [facility] MEDICINE [address] [place], [place] [phone] Handy Elias MD [address] [place], [place] [phone] Med Refill Social History Tobacco Use Types [...] sent to: [facility]/pharmacy #[id number] - [place], [place] - [address] [place] [address] [address], [place] [address] documented in this encounter Plan of Treatment Upcoming Encounters Date Type Department Care Team (Late st Contact Info) Description 02/16/2025 4:00 PM EST Office Visit [facility] MED & PEDS [address] [place] [address] Handy Elias MD [address] [place] [address] 03/01/2025 1:00 PM EST Telemedicine [facility] MED & PEDS [address] [place], [place] [phone] Tessa Cox RN [address] [place], [place] [phone] documented as of this encounter Visit Diagnoses Not on filedocumented in this encounter Additional Health Concerns Assessment Noted Time PHQ-9 Depression Total Score: 2 05/09/19 2:07 PM EDT documented as of this encounter Care Teams Sock Lining Stitcher Relationship Specialty Start Date End Date Handy Elias MD [address] [place] [address] [place] [address] PCP - General Internal Medicine 11/17/12 [facility] 12/19/24 documented as of this encounter
--- OUTSIDE RECORDS SUMMARY | 2025-02-09 19:20 | XMS_ITS | Encounter Summary ---
Author Organization [employer] Address [address] [place] [address] Care Team Providers Care Oral Therapist Name Role Phone Handy Elias MD Primary Care Provider +1 [phone] Reason for Referral * Consultation (Routine) - Closed Specialty Diagnoses / Procedures Referred By Maurice weaver Referred To Contact Otolaryngology Diagnoses Other chronic sinusitis Handy Elias MD [address] [place] [address] Phone: tel: fax: [facility] [address] Phone: tel: fax: Referral ID Status Reason Start Date Expiration Date V isits Requested Visits Authorized [id number] Closed Specialty Services Required 03/25/2024 03/25/2025 1 1 Encounter Details Date Type Department Care Team ([facility] st Contact Info) Description 03/25/2024 Orders Only [facility] MED & PEDS [address] [place], [place] [phone] Handy Elias MD [address] [place], [place] [phone] Other chronic sinusitis (Primary Dx) Social History [facility] Description 02/16/2025 4:00 PM EST Office Visit [facility] MED & PEDS [address] [place] [address] Handy Elias MD [address] [place] [address] 03/01/2025 1:00 PM EST Telemedicine [facility] MED & PEDS [address] [place] [address] Tessa Cox RN [address] [place] [address] Scheduled Referrals Name Type Priority Associated Diagnoses Orde r Schedule Referral to ENT Outpatient Referral Routine Other chronic sinusitis Expected: 03/25/2024 (Approximate), Expires: 03/25/2025 documented as of this encounter Visit Diagnoses Diagnosis Other chronic sinusitis- Primary documented in this encounter Care Teams Oral Therapist Relationship Specialty Start Date End Date Handy Elias MD [address] [place] [address] PCP - General Internal Medicine 11/17/12 [facility] 12/19/24 documented as of this encounter
--- OUTSIDE RECORDS SUMMARY | 2025-02-09 19:20 | XMS_ITS | Encounter Summary ---
Author Organization [employer] Address [address] [facility] 7t [place] [address] Care Team Providers Care Mechanical Insulator Name Role Phone Handy Elias MD Primary Care Provider +1 [phone] Encounter Details Date Type Department Care Team ([facility] st Contact Info) Description 02/01/2025 Orders Only [facility] MED & PEDS [address] [place], [place] [phone] Handy Elias MD [address] [place], [place] [phone] Fall, initial encounter (Primary Dx); Rib pain on left side Social History Tobacco Use Types Packs/Day Years [...] Upcoming Encounters Date Type Department Care Team ([facility] st Contact Info) Description 02/16/2025 4:00 PM EST Office Visit [facility] MED & PEDS [address] [place] [address] Handy Elias MD [address] [place] [address] 03/01/2025 1:00 PM EST Telemedicine [facility] MED & PEDS [address] [place] [address] Tessa Cox, MARITA [address] [place] [address] Scheduled Orders Name Type Priority Associated Diagnoses Orde r Schedule XR Ribs 2 Views Left Imaging Routine Fall, initial encounter Rib pain on left side Expected: 02/01/2025, Expires: 02/01/2026 documented as of this encounter Visit Diagnoses Diagnosis Fall, initial encounter- Primary Rib pain on left side documented in this encounter Additional Health Concerns Assessment Noted Time PHQ-9 Depression Total Score: 2 05/09/19 25 2:07 PM EDT documented as of this encounter Care Teams Mechanical Insulator Relationship Specialty Start Date End Date Handy Elias MD [address] [place] [address] PCP - General Internal Medicine 11/17/12 [facility] 12/19/24 documented as of this encounter
--- OUTSIDE RECORDS SUMMARY | 2025-02-09 19:20 | XMS_ITS | Encounter Summary ---
Author Organization [employer] Address 75 [facility] 7t [place] [address] Care Team Providers Care Network Development Coordinator Name Role Phone Handy Elias MD Primary Care Provider [phone] Encounter Details Date Type Department Care Team (Latest Contact Info) Description 02/09/2025 Travel Social History Tobacco Use Types Packs/Day [...] Description 02/16/2025 4:00 PM EST Office Visit [facility] [address] [place] [address] Handy Elias MD 505 [place] [address] 03/01/2025 1:00 PM EST Telemedicine [facility] [address] [place] [address] Tessa Cox, MARITA 505 [place] [address] documented as of this encounter Visit Diagnoses Not on filedocumented in this encounter Additional Health Concerns Assessment Noted Time PHQ-9 Depression Total Score: 2 05/09/19 25 2:07 PM EDT documented as of this encounter Care Teams Network Development Coordinator Relationship Specialty Start Date End Date Handy Elias MD 505 [place] [address] PCP - General Internal Medicine 11/17/12 [facility] 12/19/24 documented as of this encounter
--- OUTSIDE RECORDS SUMMARY | 2025-02-09 19:20 | XMS_ITS | Encounter Summary ---
Author Organization [employer] Address [address] [place] [address] [place] [address] Care Team Providers Care Lone Lead Lineman Name Role Phone Handy Elias MD Primary Care Provider [phone]- [phone] Encounter Details Date Type Department Care Team (Late st Contact Info) Description 07/16/2022 Orders Only [facility] MED & PEDS [address] [place] [address] Nataliia Santos LPN Social History Tobacco Use [...] 02/16/2025 4:00 PM EST Office Visit [facility] [address] [place] [address] Handy Elias MD 505 [place] [address] 03/01/2025 1:00 PM EST Telemedicine [facility] [address] [place] [address] Tessa Cox, MARITA [address] [place], [place] [phone] documented as of this encounter Visit Diagnoses Not on filedocumented in this encounter Care Teams Lone Lead Lineman Relationship Specialty Start Date End Date Beauzile, Thevenin, MD [address] [place] [address] PCP - General Internal Medicine 11/17/12 [facility] 12/19/24 documented as of this encounter
--- OUTSIDE RECORDS SUMMARY | 2025-02-09 19:20 | XMS_ITS | Encounter Summary ---
Author Organization [employer] Address 75 [facility] 7 [place] [address] Care Team Providers Care Well Reactivator Operator Name Role Phone Handy Elias MD Primary Care Provider [phone]- [phone] Reason for Visit * Reason Comments Pre-visit Planning SDOH unable to reach LVM Encounter Details Date Type Department Care Team ([facility] st Contact Info) Description 02/09/2025 Patient Outreach [facility] MED & PEDS [address] [place], [place] [phone] Handy Elias MD 505 [place], [place] [phone] Pre-visit Planning (SDOH unable to reach LVM [...] encounter Progress Notes * Karma Jones - 02/09/2025 1:38 PM EST CC Karma Guy placed outbound call to patient to complete pre-visit planning. No answer at this time. Patient name and were not confirmed. CC left voicemail requesting return call. Direct contactinformation provided. documented in this encounter Plan of Treatment Upcoming Encounters Date Type Department Care Team ([facility] Contact Info) Description 02/16/2025 4:00 PM EST Office Visit [facility] MED & PEDS [address] [place] [address] Handy Elias MD [address] [place] [address] 03/01/2025 1:00 PM EST Telemedicine [facility] MED & PEDS [address] [place] [address] Tessa Cox RN 505 [place] [address] documented as of this encounter Visit Diagnoses Not on filedocumented in this encounter Additional Health Concerns Assessment Noted Time PHQ-9 Depression Total Score: 2 05/09/19 2:07 PM EDT documented as of this encounter Care Teams Well Reactivator Operator Relationship Specialty Start Date End Date Handy Elias MD [address] [place] [address] PCP - General Internal Medicine 11/17/12 [facility] 12/19/24 documented as of this encounter
--- OUTSIDE RECORDS SUMMARY | 2025-02-09 19:20 | XMS_ITS | Encounter Summary ---
Author Organization [employer] Address [address] [place] [address] 7 [place] [address] Care Team Providers Care Production Planner Name Role Phone Handy Elias MD Primary Care Provider [phone] Reason for Visit * Reason Comments Med Refill Encounter Details Date Type Department Care Team ([facility] st Contact Info) Description 06/18/2024 Refill [facility] MED & PEDS [address] [place], [place] [phone] Handy Elias MD 505 [place], [place] [phone] Primary insomnia Social History Tobacco Use Types [...] Description 02/16/2025 4:00 PM EST Office Visit [facility] MED & PEDS [address] [place] [address] Handy Elias MD 505 [place] [address] 03/01/2025 1:00 PM EST Telemedicine [facility] MED [facility] PEDS [address] [place] [address] Tessa Cox, MARITA 505 [place] [address] documented as of this encounter Visit Diagnoses Diagnosis Primary insomnia Persistent disorder of initiating or maintaining sleep documented in this encounter Additional Health Concerns Assessment Noted Time PHQ-9 Depression Total Score: 2 05/09/19 2:07 PM EDT documented as of this encounter Care Teams Production Planner Relationship Specialty Start Date End Date Handy Elias MD [address] [place] [address] PCP - General Internal Medicine 11/17/12 [facility] 12/19/24 documented as of this encounter
--- OUTSIDE RECORDS SUMMARY | 2025-02-09 19:21 | XMS_ITS | Encounter Summary ---
Author Organization [employer] Address 75 [facility] 7 [place] [address] Care Team Providers Care Business Process Analyst Name Role Phone Handy Elias MD Primary Care Provider [phone]- [phone] Reason for Visit * Reason Onset Date Comments Nurse Triage 01/13/2025 Encounter Details Date Type Department Care Team ([facility] st Contact Info) Description 01/13/2025 Telephone [facility] MEDICINE [address] [place], [place] [phone] Handy Elias MD 505 [place], [place] [phone] Nurse Triage Social History Tobacco Use Types Packs/Day Years [...] encounter Miscellaneous Notes * Telephone Encounter - Tasha Thompson RN - 01/13/2025 4:53 PM EST Symptom: Back Injury Outcome: Schedule an urgent appointment (within 1 hour) or talk to a nurse or provider soon Reason: Weakness of the leg Please contact at [phone] Tc returned to pt spoke to pt + [employer] who reports pt recently had 2 back surgery's and then went to rehab center for physical rehab.. Two days prior to pt leaving he had a fall at the center andwas told he had a bone spur fracture he stayed an extra two days at the center and discharged home.Pt has an HDF however his bedroom and bathroom are upstairs he ins't able to do that stairs and coming into the clinic will be very difficult. Pt has PT twice a week now set up and OT once a week with VNA once a week as well. is doing daily dressing changes and requesting a tele HDF with can discuss pt needs with PCP, spoke to PCP who is in agreement to change apt to a tele visit. requesting BERT Newman to please contact pt * Telephone Encounter - Ace Bahena - 01/13/2025 3:00 PM EST Symptom: Back Injury Outcome: Schedule an urgent appointment (within 1 hour) or talk to a nurse or provider soon Reason: Weakness of the leg Please contact at [phone] documented in this encounter Plan of Treatment Upcoming Encounters Date Type Department Care Team ([facility] st Contact Info) Description 02/16/2025 4:00 PM EST Office Visit [facility] MED & PEDS [address] [place] [address] Handy Elias MD 505 [place] [address] 03/01/2025 1:00 PM EST Telemedicine [facility] MED & PEDS [address] [place], [place] [phone] Tessa Cox RN 505 [place] [address] documented as of this encounter Visit Diagnoses Not on filedocumented in this encounter Additional Health Concerns Assessment Noted Time PHQ-9 Depression Total Score: 2 05/09/19 25 2:07 PM EDT documented as of this encounter Care Teams Business Process Analyst Relationship Specialty Start Date End Date Handy Elias MD [address] [place] [address] PCP - General Internal Medicine 11/17/12 [facility] 12/19/24 documented as of this encounter
--- OUTSIDE RECORDS SUMMARY | 2025-02-09 19:21 | XMS_ITS | Encounter Summary ---
Author Organization [employer] Address 75 [facility] 7 [place] [address] Care Team Providers Care Group Home Paraprofessional Name Role Phone Handy Elias MD Primary Care Provider [phone]- [phone] Reason for Visit * Reason Onset Date Comments Med Refill 01/14/2025 Encounter Details Date Type Department Care Team ([facility] st Contact Info) Description 01/14/2025 Refill [facility] MED & PEDS 505 [place], [place] [phone] Handy Elias MD 505 [place], [place] [phone] Chronic pain syndrome (Primary Dx) Social History Tobacco Use Types [...] encounter Miscellaneous Notes * Telephone Encounter - Tessa Cox RN - 01/15/2025 1:23 PM EST TC back to pt, advised refill of Oxycodone queued to PCP. Also schedules VALUATION MANAGER Televisit for 03/01/24 @1pm. * Telephone Encounter - Jessica Mcclendon - 01/15/2025 1:00 PM EST TC from of pt returning call. * Telephone Encounter - Tessa Cox RN - 01/15/2025 11:51 AM EST TC back regarding message below, no answer. Lvm for pt to c/b. * Telephone Encounter - Jeromy Huntley - 01/14/2025 8:31 AM EST TC from pt requesting medication refill. Medications needing refill : oxyCODONE (Roxicodone) 5 MG immediate release tablet [[id number]] To be sent to: [facility]/pharmacy #[id number] - [place] - [address] [facility] [address] [facility] [address] documented in this encounter Plan of Treatment Upcoming Encounters Date Type Department Care Team (Late st Contact Info) Description 02/16/2025 4:00 PM EST Office Visit [facility] MED & PEDS [address] [place] [address] Handy Elias MD 505 [place] [address] 03/01/2025 1:00 PM EST Telemedicine [facility] MED & PEDS 505 [place] [address] Tessa Cox RN 505 [place] [address] documented as of this encounter Visit Diagnoses Diagnosis Chronic pain syndrome- Primary documented in this encounter Additional Health Concerns Assessment Noted Time PHQ-9 Depression Total Score: 2 05/09/19 2:07 PM EDT documented as of this encounter Care Teams Group Home Paraprofessional Relationship Specialty Start Date End Date Handy Elias MD 505 [place] [address] PCP - General Internal Medicine 11/17/12 [facility] 12/19/24 documented as of this encounter
--- OUTSIDE RECORDS SUMMARY | 2025-02-09 19:21 | XMS_ITS | Encounter Summary ---
Author Organization [employer] Address [address] [place] [address] 7 [place] [address] Care Team Providers Care Head Kiln Operator Name Role Phone Handy Elias MD Primary Care Provider +1- [phone] Encounter Details Date Type Department Care Team (Late Contact Info) Description 10/10/2022 Orders Only [facility] CH[facility] MED & PEDS [address] [place], [place] [phone] Handy Elias MD [address] [place], [place] [phone] Social History Tobacco Use Types Packs/Day Years [...] Description 02/16/2025 4:00 PM EST Office Visit [facility] CH[facility] MED & PEDS [address] [place] [address] Handy Elias MD 505 [place] [address] 03/01/2025 1:00 PM EST Telemedicine [facility] MED & PEDS [address] [place], [place] [phone] Tessa Cox, RN 505 [place] [address] documented as of this encounter Visit Diagnoses Not on filedocumented in this encounter Care Teams Head Kiln Operator Relationship Specialty Start Date End Date Handy Elias MD [address] [place] [address] PCP - General Internal Medicine 11/17/12 [facility] 12/19/24 documented as of this encounter
--- OUTSIDE RECORDS SUMMARY | 2025-02-09 19:21 | XMS_ITS | Encounter Summary ---
Author Organization [employer] Address [address] [place] [address] 7 [place] [address] Care Team Providers Care Associate Dean Of Women Name Role Phone Handy Elias MD Primary Care Provider +1- [phone] Encounter Details Date Type Department Care Team (Late Contact Info) Description 08/29/2022 Orders Only [facility] CHC MED & PEDS [address] [place], [place] [phone] Handy Elias MD [address] [place], [place] [phone] Social History Tobacco Use Types Packs/Day Years [...] Description 02/16/2025 4:00 PM EST Office Visit [facility] CHC MED & PEDS [address] [place] [address] Handy Elias MD 505 [place], [place] [phone] 03/01/2025 1:00 PM EST Telemedicine [facility] MED & PEDS [address] [place] [address] Tessa Cox, RN 505 [place], [place] [phone] documented as of this encounter Visit Diagnoses Not on filedocumented in this encounter Care Teams Associate Dean Of Women Relationship Specialty Start Date End Date Handy Elias MD [address] [place], [place] [address] [place] [address] PCP - General Internal Medicine 11/17/12 [facility] 12/19/24 documented as of this encounter
--- OUTSIDE RECORDS SUMMARY | 2025-02-09 19:21 | XMS_ITS | Encounter Summary ---
Author Organization [facility] Address [address] [place] [address] Care Team Providers Care Chief Scientist Name Role Phone Handy Elias MD Primary Care Provider +1 -[phone] Encounter Details Date Type Department Care Team (Late st Contact Info) Description 12/18/2024 Lab Requisition [facility] - Main Lab [address] [facility] [place] [address] Sonya Real PA [address] [place] [address] Other nursing home (current) drug therapy Social History Tobacco Use Types Packs/Day Years Used Date Smoking Tobacco: Every Day Cigarettes 0.3 40.6 Started: 07/04/1984 Smokeless Tobacco: Never Alcohol Use Standard Drinks/Week Comments No 0 (1 standard drink = 0.6 oz pur e alcohol) Sex and Gender Information Value Date Recorded Sex Assigned at Not on file Legal Sex Male 4:53 PM EST Gender Identity Not on file Sexual Orientation Not on file documented as of this encounter Plan of Treatment Not on file documented as of this encounter Procedures Procedure Name Priority Date/Time Associated Diagnosis Comments MANUAL DIFFERENTIAL - SYSMEX WAM Routine 12/18/2024 6:10 AM EDT Other nursing home (current) drug therapy CBC WITH AUTO DIFFERENTIAL Routine 12/18/2024 6:10 AM EDT Other nursing home (current) drug therapy CBC AND DIFFERENTIAL Routine 12/18/2024 6:10 AM EDT Other nursing home (current) drug therapy documented in this encounter Results * (ABNORMAL) Manual differential (12/18/2024 6:10 AM EDT) Neutrophils % 61.0 % LAB HEMETOLOGY METHOD 12/18/2024 11:45 AM [facility] Lymphocytes % 26.0 % LAB HEMETOLOGY METHOD 12/18/2024 11:45 AM [facility] Monocytes % 10.0 % LAB HEMETOLOGY METHOD 12/18/2024 11:45 AM [facility] Eosinophils % 1.0 % LAB HEMETOLOGY METHOD 12/18/2024 11:45 AM [facility] Basophils % 1.0 % LAB HEMETOLOGY METHOD 12/18/2024 11:45 AM [facility] Myelocytes % 1.0(H) % LAB HEMETOLOGY METHOD 12/18/2024 11:45 AM [facility] Neutrophils Absolute Manual 7.26(H) 1.50 - 7.00 K/mcL LAB HEMETOLOGY METHOD 12/18/2024 11:45 AM [facility] Lymphocytes Absolute 3.09 1.00 - 5.00 K/mcL LAB HEMETOLOGY METHOD 12/18/2024 11:45 AM [facility] Monocytes Absolute Manual 1.19(H) 0.20 - 1.00 K/mcL LAB HEMETOLOGY METHOD 12/18/2024 11:45 AM [facility] Eosinophils Absolute Manual 0.12 0.00 - 0.50 K/mcL LAB HEMETOLOGY METHOD 12/18/2024 11:45 AM [facility] Basophils Absolute Manual 0.12 0.00 - 0.20 K/mcL LAB HEMETOLOGY METHOD 12/18/2024 11:45 AM [facility] Myelocytes Absolute Manual 0.12(H) 0.00 - 0.00 K/mcL LAB HEMETOLOGY METHOD 12/18/2024 11:45 AM EDT [facility] Rbc Morphology Consistent with indices Consistent with indices, Normal for [place] LAB HEMETOLOGY METHOD 12/18/2024 11:45 AM EDT [facility] Platelet Morphology - WAM See Note(A) Normal LAB HEMETOLOGY METHOD 12/18/2024 11:45 AM EDT [facility] Comment:PLT: Large platelets seen Blood Venous blood specimen / Unknown Venipuncture / Unknown 12/18/2024 6:10 AM EDT 12/18/2024 10:13 AM EDT us Sonya [place] LAB BLOOD ORDERABLES Final Re sult [facility] [address] [place] [address], * (ABNORMAL) CBC auto differential (12/18/2024 6:10 AM EDT) WBC 11.9(H) 4.8 - 10.8 K/mcL LAB HEMETOLOGY METHOD 12/18/2024 11:45 AM EDT [facility] RBC 3.40(L) 4.50 - 5.50 M/mcL LAB HEMETOLOGY METHOD [facility]24 [facility] Hemoglobin 10.2(L) 13.5 - 17.5 g/dL LAB HEMETOLOGY METHOD 12/18/2024 11:45 AM EDT [facility] Hematocrit 32.5(L) 42.0 - 54.0 % LAB HEMETOLOGY METHOD 12/18/2024 11:45 AM EDT [facility] MCV 96.2 79.0 - 98.0 FL LAB HEMETOLOGY METHOD 12/18/2024 11:45 AM EDT [facility] MCH 30.2 27.0 - 32.0 pcg LAB HEMETOLOGY METHOD 12/18/2024 11:45 AM EDT [facility] MCHC 31.4(L) 32.0 - 37.0 g/dL LAB HEMETOLOGY METHOD 12/18/2024 11:45 AM EDT [facility] RDW 15.5(H) 11.0 - 15.0 % LAB HEMETOLOGY METHOD 12/18/2024 11:45 AM EDT [facility] Platelets 538(H) 130 - 400 K/mcL LAB HEMETOLOGY METHOD 12/18/2024 11:45 AM EDT [facility] MPV 10.4 7.0 - 11.0 FL LAB HEMETOLOGY METHOD 12/18/2024 11:45 AM EDT [facility] NRBC 0.0 <1.0 % LAB HEMETOLOGY METHOD 12/18/2024 11:45 AM EDT [facility] NRBC Absolute 0.00 <0.10 K/mcL LAB HEMETOLOGY METHOD 12/18/2024 11:45 AM T [facility] Blood Venous blood specimen / Unknown Venipuncture / Unknown 12/18/2024 6:10 AM EDT 12/18/2024 10:13 AM EDT us Sonya BRUMFIELD LAB BLOOD ORDERABLES Final Re sult [facility] [address] [place] [address], documented in this encounter Visit Diagnoses Diagnosis Other nursing home (current) drug therapy documented in this encounter Care Teams Chief Scientist Relationship Specialty Start Date End Date Handy Elias MD [address] [place] [address] PCP - General Internal Medicine 01/13/18 documented as of this encounter
--- OUTSIDE RECORDS SUMMARY | 2025-02-09 19:21 | XMS_ITS | Encounter Summary ---
Author Organization [employer] Address 75 [facility] 7 [place] [address] Care Team Providers Care Electricity Trading Analyst Name Role Phone Handy Elias MD Primary Care Provider +1- [phone] Reason for Visit * Reason Onset Date Comments Med Refill 07/28/2024 Encounter Details Date Type Department Care Team (Late st Contact Info) Description 07/28/2024 Telephone [facility] MEDICINE [address] [place], [place] [phone] Handy Elias MD [address] [place], [place] [phone] Med Refill Social History Tobacco Use Types [...] immediate release tablet To be sent to: [facility]/pharmacy #[id number] - [place], [place] - [address] [place] [address] AT [address] [place] [address] documented in this encounter Plan of Treatment Upcoming Encounters Date Type Department Care Team (Late st Contact Info) Description 02/16/2025 4:00 PM EST Office Visit [facility] MED & PEDS [address] [place] [address] Handy Elias MD 505 [place] [address] 03/01/2025 1:00 PM EST Telemedicine [facility] MED & PEDS [address] [place] [address] Tessa Cox RN 505 [place], [place] [phone] documented as of this encounter Visit Diagnoses Not on filedocumented in this encounter Additional Health Concerns Assessment Noted Time PHQ-9 Depression Total Score: 2 05/09/19 2:07 PM EDT documented as of this encounter Care Teams Electricity Trading Analyst Relationship Specialty Start Date End Date Handy Elias MD [address] [place] [address] [place] [address] PCP - General Internal Medicine 11/17/12 [facility] 12/19/24 documented as of this encounter
--- OUTSIDE RECORDS SUMMARY | 2025-02-09 19:21 | XMS_ITS | Clinical Summary ---
Author Organization [employer] Address [address] [place] [address] 7 [place] [address] Care Team Providers Care Cartridge Maker Name Role Phone Handy Elias MD Primary Care Provider [phone] [phone] Allergies Active Allergy Reactions Criticality Noted Date [...] once as needed for anaphylaxis 016 Active acetaminophen (Tylenol 8 Hour) 650 MG ER tabletIndications :Chronic pain syndrome TAKE 1 TABLET BY MOUTH EVERY 8 HOURS NEEDED 90 tablet 5 023 Active cyclobenzaprine (Flexeril) 10 MG tablet TAKE 1 TABLET BY MOUTH TWICE A DAY NEEDED FOR MUSCLE SPASMS 30 tablet 023 Active hydrOXYzine pamoate (Vistaril) 50 MG capsuleIndication s:Anxiety TAKE 1 CAPSULE BY MOUTH EVERY 6 HOURS IF NEEDED FOR ITCHING 90 capsule 3 024 Active cyanocobalamin (Vitamin B-12) 1000 MCG/ML injectionIndicati ons:Deficiency of other specified B group vitamins INJECT 1 ML ONCE A MONTH DIRECTED 12 mL 024 Active naloxone (Narcan) 4 mg/0.1 mL nasal sprayIndications: Chronic pain syndrome Administer 1 spray (4 mg) into affected nostril(s) if needed for opioid reversal. 2 each 1 Active sildenafil (Viagra) 100 MG tabletIndications :Erectile disorder Take 1 tablet (100 mg) by mouth if needed for erectile dysfunction. Every day as needed approximately 1 hour before sexual activity 30 tablet 3 025 Active albuterol 108 (90 Base) MCG/ACT inhaler Inhale 2 puffs every 6 (six) hours if needed for wheezing. 022 Active alendronate (Fosamax) 70 MG tablet Take 1 tablet by mouth every 7 (seven) days. Active amLODIPine (Norvasc) 10 MG tablet Take 1 tablet by mouth Once per day. Active fluvastatin (Lescol) 20 MG capsule Take 1 capsule by mouth at bedtime. 025 Active LORazepam (Ativan) 1 MG tablet Take 1 tablet by mouth if needed at bedtime for anxiety. Active ondansetron ODT (Zofran-ODT) 4 MG disintegrating tablet Take 1 tablet by mouth every 6 (six) hours if needed for vomiting or nausea. Active oxyCODONE (Roxicodone) 5 MG immediate release tabletIndications :Chronic pain syndrome Take 1 tablet (5 mg) by mouth every 4 (four) hours if needed for severe pain for up to 28 days. 168 tablet 025 2024 Active FLUoxetine (PROzac) 40 MG capsule Take 1 capsule by mouth Once per day. Active ferrous sulfate 325 (65 Fe) MG tablet Take 1 tablet by mouth with breakfast. Active omeprazole (PriLOSEC) [address] capsule Take 1 capsule by mouth Once per day. Do not crush or chew. Active BD Integra Syringe 25G X 1 3 ML miscIndications:V itamin B12 deficiency USE 1 SYRINGE BY INTRAMUSCULAR ROUTE ONCE A MONTH FOR VITMAIN B12 INJECTIONS 12 each 1 11/21/2 025 Active gabapentin (Neurontin) 300 MG capsuleIndication s:Chronic midline low back pain without sciatica Take 1 capsule (300 mg) by mouth 3 times daily. 90 capsule 11 025 2025 Active zolpidem (Ambien) 10 MG tabletIndications :Primary insomnia TAKE 1 TABLET BY MOUTH AT BEDTIME NEEDED FOR SLEEP 30 tablet Active gabapentin (Neurontin) 300 MG capsule take 1 capsule by oral route every 12 hours 2024 Discontinued(M ed list cleanup (will not trigger notification to Pharmacy)) lidocaine (Xylocaine) 2 % gel To apply 2 to 3 times a day as needed 022 2024 Discontinued(M ed list cleanup (will not trigger notification to Pharmacy)) triamcinolone (Kenalog) 0.1 % creamIndications: Dry skin to apply to the affected area 2 times a day Strength: 0.1 % 80 g 3 023 2024 Discontinued(M ed list cleanup (will not trigger notification to Pharmacy)) BD Integra Syringe 25G X 1 3 ML miscIndications:V itamin B12 deficiency USE 1 SYRINGE BY INTRAMUSCULAR ROUTE ONCE A MONTH FOR VITMAIN B12 INJECTIONS 12 each 1 023 2024 Discontinued(R eorder (will not trigger notification to Pharmacy)) furosemide (Lasix) 20 MG tabletIndications :Swelling of lower limb Take 1 tablet (20 mg) by mouth in the morning. 30 tablet 023 2024 Discontinued(M ed list cleanup (will not trigger notification to Pharmacy)) temazepam (Restoril) 7.5 MG capsuleIndication s:Other insomnia Take 1 capsule (7.5 mg) by mouth if needed at bedtime for sleep. 30 capsule 024 2024 Discontinued(M ed list cleanup (will not trigger notification to Pharmacy)) econazole nitrate 1 % cream Apply topically Once per day. 85 g 3 025 2024 Discontinued(M ed list cleanup (will not trigger notification to Pharmacy)) FLUoxetine (PROzac) 20 MG capsule Take 1 capsule by mouth Once per day. 025 2024 Discontinued(M ed list cleanup (will not trigger notification to Pharmacy)) pantoprazole (ProtoNix) 40 MG EC tablet Take 1 tablet by mouth 2 times daily. 025 2024 Discontinued(M ed list cleanup (will not trigger notification to Pharmacy)) tamsulosin (Flomax) 0.4 MG 24 hr capsule Take 1 capsule by mouth Once per day. 025 2024 Discontinued(M ed list cleanup (will not trigger notification to Pharmacy)) zolpidem (Ambien) 10 MG tabletIndications :Primary insomnia TAKE 1 TABLET BY MOUTH EVERY DAY AT BEDTIME NEEDED FOR SLEEP 30 tablet 025 2024 Discontinued ondansetron (Zofran) 4 MG tabletIndications :Nausea Take 1 tablet (4 mg) by mouth every 8 (eight) hours if needed for nausea or vomiting for up to 7 days. 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 Skin tag 02/21/2018 CKD (chronic kidney disease), stage III ([facility] ) 09/22/2017 Osteoporosis 09/22/2017 Chronic pain syndrome 11/20/2016 Erectile dysfunction 11/24/2012 Sciatica 11/24/2012 Hypercholesterolemia 07/14/2012 Hypertension 07/14/2012 Low back pain 07/14/2012 Obstructive sleep apnea syndrome 01/04/2010 Encounters Date Type Department Care Team Description 02/09/2025 Patient Outreach [facility] [address] [facility] [place] [address] Handy Elias MD Pre-visit Planning ([facility] unable to reach [facility] ) 02/09/2025 Travel 02/01/2025 Orders Only [facility] [address] [facility] [place] [address] Handy Elias MD Fall, initial encounter (Primary Dx); Rib pain on left side 01/28/2025 Telephone [facility] [address] [place] [address] Handy Elias MD Nurse Triage 01/27/2025 Refill [facility] [address] [place] [phone] Handy Elias MD Primary insomnia 01/25/2025 Telephone [facility] [address] [place] [phone] Handy Elias MD Call Back Request 01/18/2025 1:15 PM EST Telemedicine [facility] [address] [place] [address] Handy Elias MD Chronic midline low back pain without sciatica (Primary Dx); Recurrent diverticulitis; Colostomy in place (CMS/HCC) (HCC); Nausea 01/18/2025 Travel 01/15/2025 Refill [facility] [address] [place] [phone] Laureen Horton, PharmD Vitamin B12 deficiency 01/15/2025 Telephone [facility] [address] [place] [phone] Handy Elias MD FYI 01/14/2025 Refill [facility] [address] [place] [address] Handy Elias MD Chronic pain syndrome (Primary Dx) 01/13/2025 Travel 01/13/2025 Telephone [facility] [address] [place] [address] Handy Elias MD Nurse Triage 01/07/2025 Telephone [facility] [address] [place] [phone] Handy Elias MD FYI 01/06/2025 Patient Outreach [facility] [address] [place] [phone] Handy Elias MD Transition Of Care (Tcm) (HDF- Rescheduled.) 01/06/2025 Telephone [facility] [address] [place] [phone] Handy Elias MD Hospital Follow-up 01/05/2025 Telephone [facility] [address] [place] [address] Handy Elias MD FYI 12/28/[address] [address] Handy Elias MD r/s appt 12/25/2024 Refill [facility] [address] [place] [phone] Handy Elias MD Primary insomnia 12/24/[address] [address] Handy Elias MD verbal order 12/21/[address] [address] Handy Elias MD FYI 12/17/2024 Telephone [facility] [address] [place] [address] Handy Elias MD Appointment Request 12/17/2024 Patient Outreach [address] [address] Handy Elias MD Transition Of Care (Tcm) (HDF- scheduled (direct)) 11/16/2024 Refill [facility] [address] [place] [address] Handy Elias MD Primary insomnia 11/13/2024 Refill [facility] [address] [place] [address] Handy Elias MD Primary insomnia from Last [...] 02/16/2025 4:00 PM EST Office Visit [facility] [address] [place] [address] Handy Elias MD [address] [place] [address] 03/01/2025 1:00 PM EST Telemedicine [facility] [address] [place] [address] Tessa Cox, MARITA [address] [place] [address] Health Maintenance Due Date Last Done Comments CT Colonography 1958 FIT DNA/Cologuard 1958 FIT 1958 FOBT 1958 Sigmoidoscopy 1960 Hepatitis C Screening 01/23/1976 Hepatitis A Vaccines (1 of 2 - Risk 2-dose series) 1977 Hepatitis B Vaccines (1 of 3 - Risk 3-dose series) 2018 Colonoscopy 05/29/2023 05/28/2013 Colorectal Cancer Screening 05/29/2023 COVID-19 Vaccine ( season) 2024 11/27/2021, 03/23/2021, 10/03/2020, Additional history exists Influenza Vaccine (#1) 2024 , 12/24/2022, 12/15/2021, Additional history exists Alcohol/Substance Use Screening 03/19/2025 03/19/2024 SDOH Screening 05/01/2025 05/01/2024 Depression Screening 05/08/2025 05/08/2024, 05/09/19 25 Tobacco Screening 01/18/2026 01/18/2025 Lipid Panel 01/01/2027 01/01/2022, 07/26, 12/09/2020, Additional history exists DTaP/Tdap/Td Vaccines (2 - Td or Tdap) 11/19/2027 11/18/2017, 11/26/2008 Zoster Vaccines Completed 12/12/2022, 08/25/2022 RSV Patients and Patients Aged 60 years or older Completed 06/13/2024 RSV under 20 months Aged Out 06/13/2024 No longe r eligible based on patient's age to complete this topic HIB Vaccines Aged Out 11/12/2024 No longer eligi ble based on patient's age to complete this topic Meningococcal Vaccine Aged Out 11/12/2024 No keshia zeeshan eligible based on patient's age to complete this topic Pneumococcal Vaccine: 50+ Years Completed 11/12/2024, 05/08/2024, 11/06/2021 HPV Vaccines Aged Out No longer eligi [...] Procedure Name Priority Date/Time Associated Diagnosis Comments BASIC METABOLIC PANEL Routine 02/09/2025 3:05 PM EST Chronic midline low back pain without sciatica Nausea CBC WITH AUTO DIFFERENTIAL Routine 02/09/2025 3:05 PM EST Chronic midline low back pain without sciatica ZZZ HISTORICAL LIPID PANEL Routine 01/01/2022 11:44 AM EST COLONOSCOPY Routine 05/28/2013 from Last 3 Months or Most Recently Relevant to Health Maintenance Results * (ABNORMAL) CBC auto differential (02/09/2025 3:05 PM EST) White Blood Count 12.6(H) 4.8 - 10.8 X10*3/uL [facility] Red Blood Count 5.01 4.60 - 5.80 X10*6/uL [facility] Hemoglobin 14.3 14.0 - 18.0 g/dl [facility] Hematocrit 45.7 42.0 - 52.0 % [facility] Mean Corpuscular Volume 91.2 80.0 - 98.0 fL [facility] Mean Corpuscular Hemoglobin 28.5 27.0 - 33.0 pg [facility] Mean Corpuscular HGB Conc 31.3 31.0 - 36.0 g/dl [facility] Red Cell Distribution Width 16.9(H) 11.0 - 16.0 % [facility] Platelet Count 656(H) 160 - 400 X10*3/uL [facility] Mean Platelet Volume 10.1 9.4 - 12.4 fL [facility] Neutrophils Percent Auto 50.5 45 - 73 % [facility] Imm Gran Pct Auto 0.7(H) 0.0 - 0.4 % [facility] Lymphocytes Percent Auto 33.0 20 - 40 % [facility] Monocytes Percent Auto 11.3(H) 2 - 11 % [facility] Eosinophils Percent Auto 3.9 0 - 4 % [facility] Basophils Percent Auto 0.6 0 - 2 % [facility] NRBC Pct Auto 0.0 0.0 - 0.2 /100WBC [facility] Neutrophils Absolute Auto 6.3 2.0 - 8.3 x10*3/uL [facility] Imm Gran Abs Auto 0.09(H) 0.00 - 0.03 X10*3/uL [facility] Lymphocytes Absolute Auto 4.2 1.2 - 4.9 X10*3/uL [facility] Monocytes Absolute Auto 1.4(H) 0.1 - 1.2 X10*3/uL [facility] Eosinophils Absolute Auto 0.5(H) 0.0 - 0.4 X10*3/uL [facility] Basophils Absolute Auto 0.1 0.0 - 0.2 X10*3/uL [facility] NRBC Abs Auto 0.000 0.0 - 0.012 X10*3/uL [facility] Blood Venous blood specimen / Unknown 02/09/2025 3:05 PM EST 02/09/2025 4:09 PM EST us Hadny Elias MD LAB BLOOD ORDERABLES Final Result [facility] [address] [place] [phone] * (ABNORMAL) Basic Metabolic Panel (02/09/2025 3:05 PM EST) Sodium 140 135 - 145 mmol/L [facility] Potassium 4.9 3.3 - 5.1 mmol/L [facility] Chloride 103 96 - 108 mmol/L [facility] Carbon Dioxide 25 22 - 29 mmol/L [facility] Anion Gap 17 12 - 20 [facility] Urea Nitrogen (BUN) 18(H) 9 - 16 mg/dL [facility] Creatinine, Serum 1.29 0.5 - 1.4 mg/dL [facility] Estimated Glomerular Filt Rate 56 [facility] Comment:Chronic Kidney Disea se: Estimated GFR < 60 mL/min/1.83m0Oojbyf Kidney Disease: Estimated GFR < 15 mL/min/1.73m2 Glucose 87 60 - 115 mg/dL [facility] Calcium 10.3(H) 8.4 - 10.2 mg/dL [facility] Blood Venous blood specimen / Unknown 02/09/2025 3:05 PM EST 02/09/2025 4:11 PM EST us Handy Elias MD LAB BLOOD ORDERABLES Final Result [facility] [address] [place] [phone] [phone] * LIPID PANEL (01/01/2022 11:44 AM EST) [...] Recently Relevant to Health Maintenance Insurance MEDICARE [facility] MEDEX MEDICARE SUPPLEMENT * Guarantor: Henri Espino Account Type Relation to Patient Date of Phone Billing Address Personal/Family Self [address] Care Teams Cartridge Maker Relationship Specialty Start Date End Date Handy Elias MD [address] [place] [address] [address] PCP - General Internal Medicine 11/17/12 [facility] 12/19/24
--- OUTSIDE RECORDS SUMMARY | 2025-02-09 19:21 | XMS_ITS | Encounter Summary ---
Author Organization [facility] Address [address] [place] [address] Care Team Providers Care Statistical Consultant Name Role Phone Handy Elias MD Primary Care Provider +1 -[phone] Encounter Details Date Type Department Care Team (Late st Contact Info) Description 12/16/2024 Lab Requisition [facility] - Main Lab [address] [facility] [place] [address] Sonya Real PA [address] [place] [address] Other mcfp (current) drug therapy Social History Tobacco Use [...] Procedure Name Priority Date/Time Associated Diagnosis Comments COMPLETE BLOOD COUNT Routine 12/16/2024 4:45 AM EDT Other mcfp (current) drug therapy THYROID STIMULATING HORMONE Routine 12/16/2024 4:45 AM EDT Other mcfp (current) drug therapy COMPREHENSIVE METABOLIC PANEL Routine 12/16/2024 4:45 AM EDT Other exterminator helper (current) drug therapy documented in this encounter Results * (ABNORMAL) Complete blood count (12/16/2024 4:45 AM EDT) [facility] Signature WBC 12.9(H) 4.8 - 10.8 K/mcL LAB HEMETOLOGY METHOD 12/16/2024 9:[address] [facility] RBC 3.40(L) 4.50 - 5.50 M/mcL LAB HEMETOLOGY METHOD 12/16/2024 9:[address] [facility] Hemoglobin 10.1(L) 13.5 - 17.5 g/dL LAB HEMETOLOGY METHOD 12/16/2024 9:[address] [facility] Hematocrit 33.1(L) 42.0 - 54.0 % LAB HEMETOLOGY METHOD 12/16/2024 9:[address] [facility] MCV 97.4 79.0 - 98.0 FL LAB HEMETOLOGY METHOD 12/16/2024 9:[address] [facility] MCH 29.7 27.0 - 32.0 pcg LAB HEMETOLOGY METHOD 12/16/2024 9:[address] [facility] MCHC 30.5(L) 32.0 - 37.0 g/dL LAB HEMETOLOGY METHOD 12/16/2024 9:[address] [facility] RDW 15.3(H) 11.0 - 15.0 % LAB HEMETOLOGY METHOD 12/16/2024 9:[address] [facility] Platelets 569(H) 130 - 400 K/mcL LAB HEMETOLOGY METHOD 12/16/2024 9:[address] [facility] MPV 10.7 7.0 - 11.0 FL LAB HEMETOLOGY METHOD 12/16/2024 9:[address] [facility] NRBC 0.0 <1.0 % LAB HEMETOLOGY METHOD 12/16/2024 9:[address] [facility] NRBC Absolute 0.00 <0.10 K/mcL LAB HEMETOLOGY METHOD 12/16/2024 9:28 AM EDT [facility] Blood Venous blood specimen / Unknown Venipuncture / Unknown 12/16/2024 4:45 AM EDT 12/16/2024 8:37 AM EDT Sonya BRUMFIELD LAB BLOOD ORDERABLES Final Re sult Performing Organization Address [facility]/ZIP Co de Phone Number [facility] [address] [place] [address], [place] [phone] * (ABNORMAL) Thyroid stimulating hormone (12/16/2024 4:45 AM EDT) TSH 10.89(H) 0.40 - 4.00 mcIU/mL LAB CHEMISTRY METHOD 12/16/2024 11:09 AM EDT [facility] Blood Venous blood specimen / Unknown Venipuncture / Unknown 12/16/2024 4:45 AM EDT 12/16/2024 8:37 AM EDT Sonya BRUMFIELD LAB BLOOD ORDERABLES Final Re sult Performing Organization Address [facility] de Phone Number [facility] [address] [place] [address], [place] [phone] * (ABNORMAL) Comprehensive metabolic panel (12/16/2024 4:45 AM EDT) Sodium 136 133 - 145 mmol/L LAB CHEMISTRY METHOD 12/16/2024 10:09 AM EDT [facility] Potassium 4.0 3.5 - 5.5 mmol/L LAB CHEMISTRY METHOD 12/16/2024 10:09 AM EDT [facility] Chloride 103 96 - 110 mmol/L LAB CHEMISTRY METHOD 12/16/2024 10:09 AM EDT [facility] CO2 23 21 - 32 mmol/L LAB CHEMISTRY METHOD 12/16/2024 10:[address] [facility] Anion Gap 10 3 - 11 LAB CHEMISTRY METHOD 12/16/2024 10:[address] [facility] Glucose 64(L) 70 - 100 mg/dL LAB CHEMISTRY METHOD 12/16/2024 10:[address] [facility] BUN 13 5 - 25 mg/dL LAB CHEMISTRY METHOD 12/16/2024 10:[address] [facility] Creatinine 1.36(H) 0.70 - 1.30 mg/dL LAB CHEMISTRY METHOD 12/16/2024 10:[address] [facility] eGFR 57(L) >=60 mL/min/1. 73m2 LAB CHEMISTRY METHOD 12/16/2024 10:[address] [facility] Comment:Calculation based on the Chronic Kidney Disease Epidemiology Collaboration (CKD-EPI) equation refit without adjustment for race. BUN/Creatinine Ratio 9.6 LAB CHEMISTRY METHOD 12/16/2024 10:[address] [facility] Calcium 9.0 8.5 - 10.5 mg/dL LAB CHEMISTRY METHOD 12/16/2024 10:[address] [facility] AST (SGOT) 21 10 - 42 unit/L LAB CHEMISTRY METHOD 12/16/2024 10:[address] [facility] ALT (SGPT) 18 10 - 60 unit/L LAB CHEMISTRY METHOD 12/16/2024 10:[address] [facility] Alkaline Phosphatase 74 42 - 121 unit/L LAB CHEMISTRY METHOD 12/16/2024 10:[address] [facility] Total Protein 6.7 6.0 - 8.0 g/dL LAB CHEMISTRY METHOD 12/16/2024 10:[address] [facility] Albumin 2.4(L) 3.2 - 5.0 g/dL LAB CHEMISTRY METHOD 12/16/2024 10:09 AM EDT [facility] Total Bilirubin 0.4 0.0 - 1.4 mg/dL LAB CHEMISTRY METHOD 12/16/2024 10:09 AM EDT [facility] Blood Venous blood specimen / Unknown Venipuncture / Unknown 12/16/2024 4:45 AM EDT 12/16/2024 8:37 AM EDT us Sonya BRUMFIELD LAB BLOOD ORDERABLES Final Re sult [facility] [address] [place] [address], documented in this encounter Visit Diagnoses Diagnosis Other mcfp (current) drug therapy documented in this encounter Care Teams Statistical Consultant Relationship Specialty Start Date End Date Handy Elias MD [address] [place] [address] PCP - General Internal Medicine 01/13/18 documented as of this encounter
--- OUTSIDE RECORDS SUMMARY | 2025-02-09 19:21 | XMS_ITS | Encounter Summary ---
Author Organization [employer] Address [address] [place] [address] 7 [place] [address] Care Team Providers Care Manufacture Specialist Name Role Phone Handy Elias MD Primary Care Provider [phone]- [phone] Encounter Details Date Type Department Care Team ([facility] Contact Info) Description 12/26/2022 Abstract [facility] [address] [place], [place] [phone] Handy Elias MD [address] [place], [place] [phone] Social History Tobacco Use Types Packs/Day Years [...] Encounters Date Type Department Care Team ([facility] Contact Info) Description 02/16/2025 4:00 PM EST Office Visit [facility] [address] [place] [address] Handy Elias MD [address] [place], [place] [phone] 03/01/2025 1:00 PM EST Telemedicine [facility] [address] [place], [place] [phone] Tessa Cox, MARITA [address] [place] [address] documented as of this encounter Visit Diagnoses Not on filedocumented in this encounter Care Teams Manufacture Specialist Relationship Specialty Start Date End Date Handy Elias MD [address] [place] [address] PCP - General Internal Medicine 11/17/12 [facility] 12/19/24 documented as of this encounter
--- OUTSIDE RECORDS SUMMARY | 2025-02-09 19:21 | XMS_ITS | Encounter Summary ---
Author Organization [employer] Address [address] [facility] 7 [place] [address] Care Team Providers Care Crime Investigator Special Agent Name Role Phone Handy Elias MD Primary Care Provider [phone]- [phone] Reason for Visit * Reason Onset Date Comments Med Refill 09/23/2023 Encounter Details Date Type Department Care Team ([facility] st Contact Info) Description 09/23/2023 Telephone [facility] [address] [place], [place] [phone] Handy Elias MD [address] [place], [place] [phone] Med Refill Social History Tobacco Use Types [...] release tablet To be sent to: [facility]/pharmacy #[id number] - [address] - [address] [place] [address] AT [address], [facility] documented in this encounter Plan of Treatment Upcoming Encounters Date Type Department Care Team (Late st Contact Info) Description 02/16/2025 4:00 PM EST Office Visit [facility] [address] [place] [address] Handy Elias MD [address] [place] [address] 03/01/2025 1:00 PM EST Telemedicine [facility] [address] [place] [address] Tessa Cox, MARITA [address] [place] [address] documented as of this encounter Visit Diagnoses Not on filedocumented in this encounter Care Teams Crime Investigator Special Agent Relationship Specialty Start Date End Date Handy Elias MD [address] [place] [address] PCP - General Internal Medicine 11/17/12 [facility] 12/19/24 documented as of this encounter
--- OUTSIDE RECORDS SUMMARY | 2025-02-09 19:21 | XMS_ITS | Encounter Summary ---
Author Organization [employer] Address [address] [place] [address] [address] [place] [address] Care Team Providers Care Aviation Neuropsychologist Name Role Phone Handy Elias MD Primary Care Provider [phone] Encounter Details Date Type Department Care Team (Late Contact Info) Description 12/12/2022 Orders Only [facility] [address], [place] [phone] Handy Elias MD [address], [place] [phone] Vitamin B12 deficiency (Primary Dx) Social History [...] Description 02/16/2025 4:00 PM EST Office Visit [facility] [address] [place] [address] Handy Elias MD [address] [place] [address] 03/01/2025 1:00 PM EST Telemedicine [facility] [address] [place], [place] [phone] Tessa Cox, MARITA [address] [place] [address] documented as of this encounter Visit Diagnoses Diagnosis Vitamin B12 deficiency- Primary Other B-complex deficiencies documented in this encounter Care Teams Aviation Neuropsychologist Relationship Specialty Start Date End Date Handy Elias MD [address] [place] [address] PCP - General Internal Medicine 11/17/12 [facility] 12/19/24 documented as of this encounter
--- OUTSIDE RECORDS SUMMARY | 2025-02-09 19:21 | XMS_ITS | Clinical Summary ---
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 12/17/2024 Lab Requisition [facility] Lab [address] [place] [address] Sonya Real PA Encounter for other general examination 12/16/2024 Lab Requisition [facility] Lab [address] [place] [address] Sonya Real PA 12/16/2024 Lab Requisition [facility] Lab [address] [place] [address] Sonya Real PA 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 12/13/2024 Lab Requisition [facility] Lab [address] [place] [address] Sonya Real PA Encounter for other general examination 12/08/2024 Lab Requisition [facility] Main Lab [address] [place] [address] Sonya Real PA Encounter for other general examination 12/05/2024 Lab Requisition [facility] Lab [address] [place] [address] Sonya Real PA Encounter for other general examination 12/03/2024 Lab Requisition [facility] Lab [address] [place] [address] Bradley Valdes MD Encounter for other general examination 12/02/2024 Lab Requisition [facility] Lab [address] [place] [address] Lukas Sheppard PA Encounter for other general examination 11/16/2024 Lab Requisition [facility] Lab [address] [place] [address] Sonya Real PA Encounter for other general examination 11/16/2024 Lab Requisition [facility] Lab [address] [place] [address] Sonya Real PA Encounter for other general examination 11/16/2024 Lab Requisition [facility] Lab [address] [place] [address] Sonya Real PA Encounter for other general examination 11/16/2024 Lab Requisition [facility] Lab [address] [place] [address] Zoila Cruz MD Encounter for other general examination 11/16/2024 Lab Requisition [facility] Lab [address] [place] [address] Jorge Luis Razo MD Encounter for other general examination 11/14/2024 Lab Requisition [facility] Lab [address] [place] [address] Myriam Heath PA Encounter for other general examination from Last 3 Months Social History Tobacco Use Types Packs/Day Years [...] on file Sexual Orientation Not on file Plan of Treatment Health Maintenance Due Date Last Done Comments Colorectal Cancer Screening: Colonoscopy 1960 Hepatitis A Vaccines (1 of 2 - Risk 2-dose series) 1977 RSV Immunization Adult Patients (1 - Risk 50-74 years 1-dose series) 01/23/2008 06/13/2024 Zoster Vaccines (1 of 2) 01/23/2008 Hepatitis B Vaccines (1 of 3 - Risk 3-dose series) 2018 Depression Screening 02/26/2024 COVID-19 Vaccine ( season) 2024 03/23/2021, 10/03/2020, 08/29/2020 Influenza Vaccine (#1) 2024 , 11/28/2019, 11/18/2017, Additional history exists Abdominal Aortic Aneurysm (AAA) Screen 11/14/2024 Cholesterol Screening (Lipid Panel) 11/14/2024 Falls Risk Assessment 11/14/2024 Hepatitis C Screening 11/14/2024 Medicare Annual Wellness Visit 11/14/2024 Social Influencers of Health Screening 11/14/2024 Hypertension/CHF/CAD Annual BMP Blood Test 12/16/2025 12/16/2024, 12/13/2024, 12/08/2024, Additional history exists DTaP,Tdap,and Td Vaccines (3 - Td or Tdap) 11/19/2027 11/18/2017, 11/26/2008 RSV Immunization Patients Under 20 months Aged Out 06/13/2024 No longer eligible based on patient's age to complete this topic HIB Vaccines Aged Out 11/12/2024 No longer eligi ble based on patient's age to complete this topic Meningococcal ACWY Vaccine Aged Out 11/12/2024 N o longer eligible based on patient's age to complete this topic Pneumococcal Vaccine: 50+ Years Completed 11/12/2024, 05/08/2024 HPV Vaccines Aged Out No longer eligi ble based on patient's age to complete this topic IPV Vaccines Aged Out No longer eligi ble based on patient's age to complete this topic MMR Vaccines Aged Out No longer eligi ble based on patient's age to complete this topic Meningococcal B Vaccine Aged Out No l onger eligible based on patient's age to complete this topic Varicella Vaccines Aged Out No longer eligible based on patient's age to complete this topic Procedures Procedure Name Priority Date/Time Associated Diagnosis Comments MANUAL DIFFERENTIAL - SYSMEX WAM Routine 12/18/2024 6:10 AM EDT 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 CBC WITH AUTO DIFFERENTIAL Routine 12/18/2024 6:10 AM EDT 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 CBC AND DIFFERENTIAL Routine 12/18/2024 6:10 AM EDT Other residential (current) drug therapy BUTLER URINE CULTURE TUBE Routine 12/16/2024 11:10 PM EDT Encounter for other general examination URINALYSIS WITH REFLEX MICROSCOPIC AND CULTURE Routine 12/16/2024 11:10 PM EDT Encounter for other general examination URINALYSIS WITH REFLEX MICROSCOPIC AND CULTURE Routine 12/16/2024 11:10 PM EDT Encounter for other general examination CULTURE URINE Routine 12/16/2024 11:10 PM EDT Encounter for other general examination COMPLETE BLOOD COUNT Routine 12/16/2024 4:45 AM EDT Other residential (current) drug therapy THYROID STIMULATING HORMONE Routine 12/16/2024 4:45 AM EDT 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 COMPREHENSIVE METABOLIC PANEL Routine 12/16/2024 4:45 AM EDT 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 COMPREHENSIVE METABOLIC PANEL Routine 12/13/2024 5:39 AM EDT Encounter for other general examination COMPLETE BLOOD COUNT Routine 12/13/2024 5:39 AM EDT Encounter for other general examination COMPLETE BLOOD COUNT Routine 12/08/2024 5:04 AM EDT Encounter for other general examination FERRITIN Routine 12/08/2024 5:04 AM EDT Encounter for other general examination COMPREHENSIVE METABOLIC PANEL Routine 12/08/2024 5:04 AM EDT Encounter for other general examination VITAMIN B12 AND FOLATE Routine 5:04 AM EDT Encounter for other general examination IRON AND TIBC Routine 12/08/2024 5:04 AM EDT Encounter for other general examination COMPREHENSIVE METABOLIC PANEL Routine 12/05/2024 6:09 AM EDT Encounter for other general examination COMPLETE BLOOD COUNT Routine 12/05/2024 6:09 AM EDT Encounter for other general examination MANUAL DIFFERENTIAL - SYSMEX WAM Routine 12/03/2024 5:06 AM EDT Encounter for other general examination CBC WITH AUTO DIFFERENTIAL Routine 12/03/2024 5:06 AM EDT Encounter for other general examination CBC AND DIFFERENTIAL Routine 12/03/2024 5:06 AM EDT Encounter for other general examination MANUAL DIFFERENTIAL - SYSMEX WAM Routine 12/02/2024 4:46 AM EDT Encounter for other general examination CBC WITH AUTO DIFFERENTIAL Routine 12/02/2024 4:46 AM EDT Encounter for other general examination MAGNESIUM Routine 12/02/2024 4:46 AM EDT Encounter for other general examination COMPREHENSIVE METABOLIC PANEL Routine 12/02/2024 4:46 AM EDT Encounter for other general examination CBC AND DIFFERENTIAL Routine 12/02/2024 4:46 AM EDT Encounter for other general examination URINALYSIS WITH REFLEX MICROSCOPIC AND CULTURE Routine 11/16/2024 3:00 PM EDT Encounter for other general examination BUTLER URINE CULTURE TUBE Routine 11/16/2024 3:00 PM EDT Encounter for other general examination URINALYSIS WITH REFLEX MICROSCOPIC AND CULTURE Routine 11/16/2024 3:00 PM EDT Encounter for other general examination PROCALCITONIN STAT 11/16/2024 11:40 AM EDT Encounter for other general examination LACTATE STAT 11/16/2024 11:40 AM EDT Encounter for other general examination BLOOD CULTURE PATHOGENS BY PCR Routine 11/16/2024 11:40 AM EDT Encounter for other general examination CULTURE BLOOD STAT 11/16/2024 11:40 AM EDT Encounter for other general examination CULTURE BLOOD STAT 11/16/2024 11:40 AM EDT Encounter for other general examination CULTURE WOUND WITH GRAM STAIN Routine 11/16/2024 8:00 AM EDT Encounter for other general examination MAGNESIUM Routine 11/16/2024 4:57 AM EDT Encounter for other general examination BASIC METABOLIC PANEL Routine 11/16/2024 4:57 AM EDT Encounter for other general examination COMPLETE BLOOD COUNT Routine 11/16/2024 4:57 AM EDT Encounter for other general examination MANUAL DIFFERENTIAL - SYSMEX WAM Routine 11/14/2024 6:42 AM EDT Encounter for other general examination CBC WITH AUTO DIFFERENTIAL Routine 11/14/2024 6:42 AM EDT Encounter for other general examination CBC AND DIFFERENTIAL Routine 11/14/2024 6:42 AM EDT Encounter for other general examination MAGNESIUM Routine 11/14/2024 6:42 AM EDT Encounter for other general examination COMPREHENSIVE METABOLIC PANEL Routine 11/14/2024 6:42 AM EDT Encounter for other general examination from Last 3 Months Results * (ABNORMAL) Manual differential (12/18/2024 6:10 AM EDT) Only the most recent of4 resultswithin the time period is included. Pathologist [facility] Neutrophils % 61.0 % LAB HEMETOLOGY METHOD 12/18/2024 11:[address] [facility] Lymphocytes % 26.0 % LAB HEMETOLOGY METHOD 12/18/2024 11:[address] [facility] Monocytes % 10.0 % LAB HEMETOLOGY METHOD 12/18/2024 11:[address] [facility] Eosinophils % 1.0 % LAB HEMETOLOGY METHOD 12/18/2024 11:[address] [facility] Basophils % 1.0 % LAB HEMETOLOGY METHOD 12/18/2024 11:[address] [facility] Myelocytes % 1.0(H) % LAB HEMETOLOGY METHOD 12/18/2024 11:[address] [facility] Neutrophils Absolute Manual 7.26(H) 1.50 - 7.00 K/mcL LAB HEMETOLOGY METHOD 12/18/2024 11:[address] [facility] Lymphocytes Absolute 3.09 1.00 - 5.00 K/mcL LAB HEMETOLOGY METHOD 12/18/2024 11:[address] [facility] Monocytes Absolute Manual 1.19(H) 0.20 - 1.00 K/mcL LAB HEMETOLOGY METHOD 12/18/2024 11:[address] [facility] Eosinophils Absolute Manual 0.12 0.00 - 0.50 K/mcL LAB HEMETOLOGY METHOD 12/18/2024 11:45 AM EDT [facility] Basophils Absolute Manual 0.12 0.00 - 0.20 K/[facility] LAB HEMETOLOGY METHOD 12/18/2024 11:45 AM EDT [facility] Myelocytes Absolute Manual 0.12(H) 0.00 - 0.00 K/[facility] LAB HEMETOLOGY METHOD 12/18/2024 11:45 AM EDT [facility] Rbc Morphology Consistent with indices Consistent with indices, Normal for [place] LAB HEMETOLOGY METHOD 12/18/2024 11:45 AM EDT [facility] Platelet Morphology - WAM See Note(A) Normal LAB HEMETOLOGY METHOD 12/18/2024 11:45 AM EDT [facility] Comment:PLT: Large platelets seen Blood Venous blood specimen / Unknown Venipuncture / Unknown 12/18/2024 6:10 AM EDT 12/18/2024 10:13 AM EDT us Sonya BRUMFIELD LAB BLOOD ORDERABLES Final Re sult [facility] [address] [place] [address], * (ABNORMAL) CBC auto differential (12/18/2024 6:10 AM EDT) Only the most recent of4 resultswithin the time period is included. WBC 11.9(H) 4.8 - 10.8 K/mcL LAB HEMETOLOGY METHOD 12/18/2024 11:45 AM EDT [facility] RBC 3.40(L) 4.50 - 5.50 M/mcL LAB HEMETOLOGY METHOD 12/18/2024 11:45 AM EDT [facility] Hemoglobin 10.2(L) 13.5 - 17.5 g/dL LAB HEMETOLOGY METHOD 12/18/2024 11:45 AM EDT [facility] Hematocrit 32.5(L) 42.0 - 54.0 % LAB HEMETOLOGY METHOD 12/18/2024 11:45 AM EDT [facility] MCV 96.2 79.0 - 98.0 FL LAB HEMETOLOGY METHOD 12/18/2024 11:45 AM EDT [facility] MCH 30.2 27.0 - 32.0 pcg LAB HEMETOLOGY METHOD 12/18/2024 11:45 AM EDT [facility] MCHC 31.4(L) 32.0 - 37.0 g/dL LAB HEMETOLOGY METHOD 12/18/2024 11:[address] [facility] RDW 15.5(H) 11.0 - 15.0 % LAB HEMETOLOGY METHOD 12/18/2024 11:[address] [facility] Platelets 538(H) 130 - 400 K/mcL LAB HEMETOLOGY METHOD 12/18/2024 11:45 AM EDT [facility] MPV 10.4 7.0 - 11.0 FL LAB HEMETOLOGY METHOD 12/18/2024 11:[address] [facility] NRBC 0.0 <1.0 % LAB HEMETOLOGY METHOD 12/18/2024 11:45 AM EDT [facility] NRBC Absolute 0.00 <0.10 K/mcL LAB HEMETOLOGY METHOD 12/18/2024 11:[address] [facility] Blood Venous blood specimen / Unknown Venipuncture / Unknown 12/18/2024 6:10 AM EDT 12/18/2024 10:13 AM EDT us Sonya BRUMFIELD LAB BLOOD ORDERABLES Final Re sult [facility] [address] [place] [address], [place] [phone] * (ABNORMAL) Urinalysis with reflex microscopic and culture (12/16/2024 11:10 PM EDT) Only the most recent of2 resultswithin the time period is included. Specific [place] Urine 1.015 1.003 - 1.030 LAB URINALYSIS - AUTOMATED METHOD 12/17/2024 6:[address] [facility] pH, Urine 6.0 5.0 - 8.0 pH LAB URINALYSIS - AUTOMATED METHOD 12/17/2024 6:[address] [facility] Leukocytes, Urine Trace(A) Negative LAB URINALYSIS - AUTOMATED METHOD 12/17/2024 6:[address] [facility] Nitrite, Urine Negative Negative LAB URINALYSIS - AUTOMATED METHOD 12/17/2024 6:[address] [facility] Protein, Urine Trace <=Trace mg/dL LAB URINALYSIS - AUTOMATED METHOD 12/17/2024 6:[address] [facility] Glucose, Urine Negative Negative mg/dL LAB URINALYSIS - AUTOMATED METHOD 12/17/2024 6:[address] [facility] Ketones, Urine Trace(A) Negative mg/dL LAB URINALYSIS - AUTOMATED METHOD 12/17/2024 6:[address] [facility] Urobilinogen, Urine 0.2 0.2 - 1.0 mg/dL LAB URINALYSIS - AUTOMATED METHOD 12/17/2024 6:[address] [facility] Bilirubin, Urine Negative Negative LAB URINALYSIS - AUTOMATED METHOD 12/17/2024 6:[address] [facility] Blood, Urine Negative Negative LAB URINALYSIS - AUTOMATED METHOD 12/17/2024 6:[address] [facility] RBC, Urine 3.7 0 - 4 /HPF LAB URINALYSIS - AUTOMATED METHOD 12/17/2024 6:52 AM EDT [facility] WBC, Urine 1.5 0 - 4 /HPF LAB URINALYSIS - AUTOMATED METHOD 12/17/2024 6:52 AM EDT [facility] Squamous Epithelial, Urine 17 0 - 60 /LPF LAB URINALYSIS - AUTOMATED METHOD 12/17/2024 6:52 AM EDT [facility] Bacteria, Urine Negative Negative /HPF LAB URINALYSIS - AUTOMATED METHOD 12/17/2024 6:52 AM EDT [facility] Hyaline Casts, Urine 4.4(H) 0 - 3 /LPF LAB URINALYSIS - AUTOMATED METHOD 12/17/2024 6:52 AM EDT [facility] Urine Urine specimen obtained by clean catch procedure / Unknown 12/16/2024 11:10 PM EDT 12/17/2024 6:35 AM EDT Sonya BRUMFIELD LAB URINE ORDERABLES Final Re sult Performing Organization Address [facility]/ZIP Co de Phone Number [facility] [address] [place] [address], [place] [phone] * [place] urine culture tube (12/16/2024 11:10 PM EDT) Only the most recent of2 resultswithin the time period is included. Extra Tube Hold for add-ons. 12/17/2024 8:01 AM EDT [facility] Comment:Auto resulted. Urine Urine specimen obtained by clean catch procedure / Unknown 12/16/2024 11:10 PM EDT 12/17/2024 6:35 AM EDT Sonya BRUMFIELD LAB URINE ORDERABLES Final Re sult Performing Organization Address City/[facility]/ZIP Co de Phone Number [facility] [address] [place] [address], [place] [phone] * Culture urine (12/16/2024 11:10 PM EDT) Culture, Urine No growth 12/18/2024 8:28 AM EDT [facility] Urine Urine specimen obtained by clean catch procedure / Unknown 12/16/2024 11:10 PM EDT 12/17/2024 6:51 AM EDT us Sonya BRUMFIELD LAB MICROBIOLOGY - GENERAL OR DERABLES Final Result [facility] [address] [place] [address], * (ABNORMAL) Complete blood count (12/16/2024 4:45 AM EDT) Only the most recent of5 resultswithin the time period is included. Pathologist [facility] WBC 12.9(H) 4.8 - 10.8 K/mcL LAB [facility]EM[facility]OLOGY [facility] RBC 3.40(L) 4.50 - 5.50 M/mcL LAB HEMETOLOGY METHOD 12/16/2024 9:[address] [facility] Hemoglobin 10.1(L) 13.5 - 17.5 g/dL LAB HEMETOLOGY METHOD 12/16/2024 9:[address] [facility] Hematocrit 33.1(L) 42.0 - 54.0 % LAB HEMETOLOGY METHOD 12/16/2024 9:[address] [facility] MCV 97.4 79.0 - 98.0 FL LAB HEMETOLOGY METHOD 12/[facility]2024 [facility] MCH 29.7 27.0 - 32.0 pcg LAB HEMETOLOGY METHOD 12/16/2024 9:[address] [facility] MCHC 30.5(L) 32.0 - 37.0 g/dL LAB HEMETOLOGY METHOD 12/16/2024 9:28 AM EDT [facility] RDW 15.3(H) 11.0 - 15.0 % LAB HEMETOLOGY METHOD 12/16/2024 9:28 AM EDT [facility] Platelets 569(H) 130 - 400 K/mcL LAB HEMETOLOGY METHOD 12/16/2024 9:28 AM EDT [facility] MPV 10.7 7.0 - 11.0 FL LAB HEMETOLOGY METHOD 12/16/2024 9:28 AM EDT [facility] NRBC 0.0 <1.0 % LAB HEMETOLOGY METHOD 12/16/2024 9:28 AM EDT [facility] NRBC Absolute 0.00 <0.10 K/mcL LAB HEMETOLOGY METHOD 12/16/2024 9:28 AM EDT [facility] Blood Venous blood specimen / Unknown Venipuncture / Unknown 12/16/2024 4:45 AM EDT 12/16/2024 8:37 AM EDT us Sonya BRUMFIELD LAB BLOOD ORDERABLES Final Re sult [facility] [address] [place] [address], * (ABNORMAL) Thyroid stimulating hormone (12/16/2024 4:45 AM EDT) TSH 10.89(H) 0.40 - 4.00 mcIU/mL LAB CHEMISTRY METHOD 12/16/2024 11:09 AM EDT [facility] Blood Venous blood specimen / Unknown Venipuncture / Unknown 12/16/2024 4:45 AM EDT 12/16/2024 8:37 AM EDT us Sonya BRUMFIELD LAB BLOOD ORDERABLES Final Re sult [facility] [address] [place] [address], * (ABNORMAL) Comprehensive metabolic panel (12/16/2024 4:45 AM EDT) Only the most recent of6 resultswithin the time period is included. Sodium 136 133 - 145 mmol/L LAB CHEMISTRY METHOD 12/16/2024 10:[address] [facility] Potassium 4.0 3.5 - 5.5 mmol/L LAB CHEMISTRY METHOD 12/16/2024 10:[address] [facility] Chloride 103 96 - 110 mmol/L LAB CHEMISTRY METHOD 12/16/2024 10:[address] [facility] CO2 23 21 - 32 [...] mg/dL LAB CHEMISTRY METHOD 12/16/2024 10:09 AM T [facility] AST (SGOT) 21 10 - 42 unit/L LAB CHEMISTRY METHOD 12/16/2024 10:[address] [facility] ALT (SGPT) 18 10 - 60 unit/L LAB CHEMISTRY METHOD 12/16/2024 10:[address] [facility] Alkaline Phosphatase 74 42 - 121 unit/L LAB CHEMISTRY METHOD 12/16/2024 10:09 AM T [facility] Total Protein 6.7 6.0 - 8.0 g/dL LAB CHEMISTRY METHOD 12/16/2024 10:[address] [facility] Albumin 2.4(L) 3.2 - 5.0 g/dL LAB CHEMISTRY METHOD 12/16/2024 10:[address] [facility] Total Bilirubin 0.4 0.0 - 1.4 mg/dL LAB CHEMISTRY METHOD 12/16/2024 10:[address] [facility] Blood Venous blood specimen / Unknown Venipuncture / Unknown 12/16/2024 4:45 AM EDT 12/16/2024 8:37 AM EDT us Sonya BRUMFIELD LAB BLOOD ORDERABLES Final Re sult [facility] [address] [place] [address], * Vitamin B12 and folate (12/08/2024 5:04 AM EDT) Vitamin B-12 539 250 - 900 pcg/mL LAB CHEMISTRY METHOD 12/08/2024 12:[address] [facility] Folate 6.2 2.8 - 17.0 ng/ml LAB CHEMISTRY METHOD 12/08/2024 12:[address] [facility] Blood Venous blood specimen / Unknown Venipuncture / Unknown 12/08/2024 5:04 AM EDT 12/08/2024 9:52 AM EDT us Sonya BRUMFIELD LAB BLOOD ORDERABLES Final Re sult Performing Organization Address [facility]/ZIP Co de Phone Number [facility] [address] [place] [address], [place] [phone] * (ABNORMAL) Iron and TIBC (12/08/2024 5:04 AM EDT) Iron 30(L) 50 - 160 mcg/dL LAB CHEMISTRY METHOD 12/08/2024 11:39 AM EDT [facility] TIBC 244(L) 250 - 450 mcg/dL LAB CHEMISTRY METHOD 12/08/2024 11:39 AM EDT [facility] Iron Saturation 12(L) 20 - 50 % LAB CHEMISTRY METHOD 12/08/2024 11:39 AM EDT [facility] Blood Venous blood specimen / Unknown Venipuncture / Unknown 12/08/2024 5:04 AM EDT 12/08/2024 9:52 AM EDT us Sonya BRUMFIELD LAB BLOOD ORDERABLES Final Re sult Performing Organization Address [facility] Co de Phone Number [facility] [address] [place] [address], [place] [phone] * Ferritin (12/08/2024 5:04 AM EDT) Ferritin 85 26 - 388 ng/mL LAB CHEMISTRY METHOD 12/08/2024 12:01 PM EDT [facility] Blood Venous blood specimen / Unknown Venipuncture / Unknown 12/08/2024 5:04 AM EDT 12/08/2024 9:52 AM EDT us Sonya BRUMFIELD LAB BLOOD ORDERABLES Final Re sult Performing Organization Address City/[facility] Co de Phone Number [facility] [address] [place] [address], * Magnesium (12/02/2024 4:46 AM EDT) Only the most recent of3 resultswithin the time period is included. Magnesium 2.0 1.9 - 2.6 mg/dL LAB CHEMISTRY METHOD 12/02/2024 12:53 PM EDT [facility] Blood Venous blood specimen / Unknown Venipuncture / Unknown 12/02/2024 4:46 AM EDT 12/02/2024 10:34 AM EDT Lukas BRUMFIELD LAB BLOOD ORDERABLES Final R esult Performing Organization Address [facility] Co de Phone Number [facility] [address] [place] [address], * Blood culture pathogens molecular study (11/16/2024 11:40 AM EDT) Blood Venous blood specimen / Unknown Venipuncture / Unknown 11/16/2024 11:40 AM EDT 11/16/2024 1:18 PM EDT Narrative [facility] - 11/17/2024 6:42 PM EDT No targets detected by multiplex PCR panel. Refer to culture. Sonya BRUMFIELD LAB MICROBIOLOGY - GENERAL OR DERABLES Final Result Performing Organization Address [facility] Co de Phone Number [facility] [address] [place] [address], * (ABNORMAL) Procalcitonin (11/16/2024 11:40 AM EDT) Procalcitonin 0.58(H) <=0.16 ng/mL LAB CHEMISTRY METHOD 11/16/2024 2:06 PM EDT [facility] Blood Venous blood specimen / Unknown Venipuncture / Unknown 11/16/2024 11:40 AM EDT 11/16/2024 12:46 PM EDT Narrative [facility] - 11/16/2024 2:06 PM EDT Procalcitonin > 2.00 ng/ml: Procalcitonin Levels above 2.00 ng/ml, on the first day of ICU admission represent a high risk for progression to severe sepsis and/or septic shock. Procalcitonin < 0.50 ng/ml: Procalcitonin levels below 0.50 ng/ml on the first day of ICU admission represent a low risk for progression to severe sepsis and/or septic shock. Concentrations <0.5 ng/mL do not exclude an infection, on account of local ized infections (without systemic signs) which can be associated with such low concentrations, or a systemic infection in its initial stages (<6 hours). Furthermore, increased procalcitonin can occur without infection. PCT concentrations between 0.5 and 2.0 ng/mL should be interpreted taking into account the patient's history. It is recommended to retest PCT within 6-24 hours if any concentrations <2.0 ng/mL are obtained. us Sonya BRUMFIELD LAB BLOOD ORDERABLES Final Re sult [facility] [address] [place] [address], * (ABNORMAL) Culture blood (11/16/2024 11:40 AM EDT) Only the most recent of2 resultswithin the time period is included. Culture, Blood Bacteroides thetaiotaomicr on(AA) 11/20/2024 9:36 AM EDT [facility] Comment: Anaerobic susceptibilty testing is not routinely performed, if further therapeutic inforamation is required, please consult an Infectious Disease Specialist. The organism value for this result has been updated. These results have been appended to the previously preliminary verified report. Gram Stain Result Anaerobic bottle Gram negative bacilli(AA) 11/20/2024 9:36 AM EDT [facility] Comment:This is an appended report. These results have been appended to a previously preliminary verified report. Blood Venipuncture / Unknown 11/16/2024 11:40 AM EDT 11/16/2024 1:18 PM EDT Sonya BRUMFIELD LAB MICROBIOLOGY - GENERAL OR DERABLES Final Result Performing Organization Address [facility]/ZIP Co de Phone Number [facility] [address] [place] [address], [place] [phone] * Lactate (11/16/2024 11:40 AM EDT) Pathologist [facility] Lactate 1.5 0.4 - 2.0 mmol/L LAB CHEMISTRY METHOD 11/16/2024 1:18 PM EDT [facility] Blood Venous blood specimen / Unknown Venipuncture / Unknown 11/16/2024 11:40 AM EDT 11/16/2024 1:18 PM EDT Sonya BRUMFIELD LAB BLOOD ORDERABLES Final Re sult Performing Organization Address [facility] de Phone Number [facility] [address] [place] [address], [place] [phone] * (ABNORMAL) Culture wound with gram stain (11/16/2024 8:00 AM EDT) Culture, Wound Klebsiella pneumoniae ssp pneumoniae(A) BOBBY 11/19/2024 10:52 AM EDT [facility] Comment: The organism value for this result has been updated. These results have been appended to the previously preliminary verified report. This is an edited result. Previous organism was Gram negative bacilli on 11/17/2024 at 1100 EDT. Culture, Wound Escherichia coli(A) BOBBY 11/19/2024 10:52 AM EDT [facility] Comment: The organism value for this result has been updated. These results have been appended to the previously preliminary verified report. This is an edited result. Previous organism was Gram negative bacilli on 11/18/2024 at 1044 EDT. Gram Stain Result No polymorphonuclear leukocytes, No epithelial cells, and No organisms noted 11/19/2024 10:52 AM EDT [facility] Swab Non-blood Collection / Unknown 11/16/2024 8:00 AM EDT 11/16/2024 12:33 PM EDT Narrative [facility] - 11/19/2024 10:52 AM EDT Mixed normal skin martín present Organism Antibiotic Method Susceptibility Klebsiella pneumoniae ssp pneumoniae Amoxicillin/Clavulanate BOBBY <=2 ug/ml: Susceptible Klebsiella pneumoniae ssp pneumoniae Ampicillin/Sulbactam BOBBY 8 ug/ml: Susceptible Klebsiella pneumoniae ssp pneumoniae Piperacillin/Tazobactam BOBBY <=4 ug/ml: Susceptible Klebsiella pneumoniae ssp pneumoniae Cefazolin (Other) BOBBY 2 ug/ml: Susceptible Klebsiella pneumoniae ssp pneumoniae Cefoxitin BOBBY <=4 ug/ml: Susceptible Klebsiella pneumoniae ssp pneumoniae Ceftazidime BOBBY <=0.5 ug/ml: Susceptible Klebsiella pneumoniae ssp pneumoniae Ceftriaxone BOBBY <=0.25 ug/ml: Susceptible Klebsiella pneumoniae ssp pneumoniae Cefepime BOBBY <=0.12 ug/ml: Susceptible Klebsiella pneumoniae ssp pneumoniae Meropenem BOBBY <=0.25 ug/ml: Susceptible Klebsiella pneumoniae ssp pneumoniae Amikacin BOBBY <=1 ug/ml: Susceptible Klebsiella pneumoniae ssp pneumoniae Gentamicin BOBBY <=1 ug/ml: Susceptible Klebsiella pneumoniae ssp pneumoniae Ciprofloxacin BOBBY <=0.06 ug/ml: Susceptible Klebsiella pneumoniae ssp pneumoniae Levofloxacin BOBBY <=0.12 ug/ml: Susceptible Klebsiella pneumoniae ssp pneumoniae Trimethoprim/Sulfamethoxaz ole BOBBY <=20 ug/ml: Susceptible Escherichia coli Amoxicillin/Clavulanate BOBBY 4 ug/ml: Susceptible Escherichia coli Ampicillin/Sulbactam BOBBY 4 ug/ml: Susceptible Escherichia coli Piperacillin/Tazobactam BOBBY <=4 ug/ml: Susceptible Escherichia coli Cefazolin (Other) BOBBY 2 ug/ml: Susceptible Escherichia coli Cefoxitin BOBBY <=4 ug/ml: Susceptible Escherichia coli Ceftazidime BOBBY <=0.5 ug/ml: Susceptible Escherichia coli Ceftriaxone BOBBY <=0.25 ug/ml: Susceptible Escherichia coli Cefepime BOBBY <=0.12 ug/ml: Susceptible Escherichia coli Meropenem BOBBY <=0.25 ug/ml: Susceptible Escherichia coli Amikacin BOBBY 2 ug/ml: Susceptible Escherichia coli Gentamicin BOBBY <=1 ug/ml: Susceptible Escherichia coli Ciprofloxacin BOBBY <=0.06 ug/ml: Susceptible Escherichia coli Levofloxacin BOBBY <=0.12 ug/ml: Susceptible Escherichia coli Trimethoprim/Sulfame thoxaz ole BOBBY <=20 ug/ml: Susceptible us Zoila Cruz MD LAB MICROBIOLOGY - GENERA L ORDERABLES Final Result [facility] [address] [place] [address], [place] [phone] * (ABNORMAL) Basic metabolic panel (11/16/2024 4:57 AM EDT) Sodium 136 133 - 145 mmol/L LAB CHEMISTRY METHOD 11/16/2024 2:[address] [facility] Potassium 4.8 3.5 - 5.5 mmol/L LAB CHEMISTRY METHOD 11/16/2024 2:[address] [facility] Chloride 101 96 - 110 mmol/L LAB CHEMISTRY METHOD 11/16/2024 2:[address] [facility] CO2 22 21 - 32 mmol/L LAB CHEMISTRY METHOD 11/16/2024 2:[address] [facility] Anion Gap 13(H) 3 - 11 LAB CHEMISTRY METHOD 11/16/2024 2:[address] [facility] Glucose 80 70 - 100 mg/dL LAB CHEMISTRY METHOD 11/16/2024 2:[address] [facility] BUN 18 5 - 25 mg/dL LAB CHEMISTRY METHOD 11/16/2024 2:[address] [facility] Creatinine 1.03 0.70 - 1.30 mg/dL LAB CHEMISTRY METHOD 11/16/2024 2:[address] [facility] eGFR 80 >=60 mL/min/1. 73m2 LAB CHEMISTRY METHOD 11/16/2024 2:17 PM EDT [facility] Comment:Calculation based on the Chronic Kidney Disease Epidemiology Collaboration (CKD-EPI) equation refit without adjustment for race. BUN/Creatinine Ratio 17.5 LAB CHEMISTRY METHOD 11/16/2024 2:17 PM EDT [facility] Calcium 8.0(L) 8.5 - 10.5 mg/dL LAB CHEMISTRY METHOD 11/16/2024 2:17 PM EDT [facility] Blood Venous blood specimen / Unknown Venipuncture / Unknown 11/16/2024 4:57 AM EDT 11/16/2024 10:53 AM EDT us Jorge Luis Razo MD LAB BLOOD ORDERABLES Final R esult [facility] [address] [place] [address], from Last 3 Months Insurance MEDICARE [facility] Care Teams Senior Java Data Architect Relationship Specialty Start Date End Date Handy Elias MD [address] [place] PCP - General Internal Medicine 01/13/18
--- OUTSIDE RECORDS SUMMARY | 2025-02-09 19:21 | XMS_ITS | Encounter Summary ---
Author Organization [employer] Address [address] [place] [address] 7 [place] [address] Care Team Providers Care Platinum And Palladium Kettle Tender Name Role Phone Handy Elias MD Primary Care Provider +1- [phone] Encounter Details Date Type Department Care Team (Late Contact Info) Description 03/14/2023 Orders Only [facility] MED & PEDS [address] [place], [place] [phone] Handy Elias MD [address] [place], [place] [phone] Chronic pain syndrome; Primary insomnia Social History [...] Description 02/16/2025 4:00 PM EST Office Visit [facility] MED & PEDS [address] [place] [address] Handy Elias MD [address] [place] [address] 03/01/2025 1:00 PM EST Telemedicine [facility] MED & PEDS [address] [place] [address] Tessa Cox, MARITA [address] [place] [address] documented as of this encounter Visit Diagnoses Diagnosis Chronic pain syndrome Primary insomnia Persistent disorder of initiating or maintaining sleep documented in this encounter Care Teams Platinum And Palladium Kettle Tender Relationship Specialty Start Date End Date Handy Elias MD [address] [place] [address] PCP - General Internal Medicine 11/17/12 [facility] Services 12/19/24 documented as of this encounter
--- OUTSIDE RECORDS SUMMARY | 2025-02-09 19:21 | XMS_ITS | Encounter Summary ---
Author Organization [facility] Address [address] [place] [address] Care Team Providers Care Back Maker Name Role Phone Handy Elias MD Primary Care Provider +1 -[phone] Encounter Details Date Type Department Care Team (Late st Contact Info) Description 12/13/2024 Lab Requisition [facility] - Main Lab [address] [place] [address] Sonya Real PA [address] [place] [address] Encounter for other general examination Social History Tobacco Use Types Packs/Day Years [...] Associated Diagnosis Comments COMPLETE BLOOD COUNT Routine 12/13/2024 5:39 AM EDT Encounter for other general examination COMPREHENSIVE METABOLIC PANEL Routine 12/13/2024 5:39 AM EDT Encounter for other general examination documented in this encounter Results * (ABNORMAL) Comprehensive metabolic panel (12/13/2024 5:39 AM EDT) Sodium 140 133 - 145 mmol/L LAB CHEMISTRY METHOD 12/13/2024 10:05 AM [facility] Potassium 4.7 3.5 - 5.5 mmol/L LAB CHEMISTRY METHOD 12/13/2024 10:05 AM [facility] Chloride 107 96 - 110 mmol/L LAB CHEMISTRY METHOD 12/13/2024 10:05 AM [facility] CO2 27 21 - 32 mmol/L LAB CHEMISTRY METHOD 12/13/2024 10:05 AM [facility] Anion Gap 6 3 - 11 LAB CHEMISTRY METHOD 12/13/2024 10:05 AM [facility] Glucose 75 70 - 100 mg/dL LAB CHEMISTRY METHOD 12/13/2024 10:05 AM [facility] BUN 18 5 - 25 mg/dL LAB CHEMISTRY METHOD 12/13/2024 10:05 AM [facility] Creatinine 1.34(H) 0.70 - 1.30 mg/dL LAB CHEMISTRY METHOD 12/13/2024 10:05 AM [facility] eGFR 58(L) >=60 mL/min/1. 73m2 LAB CHEMISTRY METHOD 12/13/2024 10:05 AM [facility] Comment:Calculation based on the Chronic Kidney Disease Epidemiology Collaboration (CKD-EPI) equation refit without adjustment for race. BUN/Creatinine Ratio 13.4 LAB CHEMISTRY METHOD 12/13/2024 10:05 AM [facility] Calcium 8.8 8.5 - 10.5 mg/dL LAB CHEMISTRY METHOD 12/13/2024 10:05 AM [facility] AST (SGOT) 15 10 - 42 unit/L LAB CHEMISTRY METHOD 12/13/2024 10:05 AM [facility] ALT (SGPT) 16 10 - 60 unit/L LAB CHEMISTRY METHOD 12/13/2024 10:05 AM [facility] Alkaline Phosphatase 72 42 - 121 unit/L LAB CHEMISTRY METHOD 12/13/2024 10:05 AM EDT [facility] Total Protein 7.0 6.0 - 8.0 g/dL LAB CHEMISTRY METHOD 12/13/2024 10:05 AM T [facility] Albumin 2.4(L) 3.2 - 5.0 g/dL LAB CHEMISTRY METHOD 12/13/2024 10:05 AM [facility] Total Bilirubin 0.3 0.0 - 1.4 mg/dL LAB CHEMISTRY METHOD 12/13/2024 10:05 AM EDT [facility] Blood Venous blood specimen / Unknown Venipuncture / Unknown 12/13/2024 5:39 AM EDT 12/13/2024 8:46 AM EDT us Sonya BRUMFIEDL LAB BLOOD ORDERABLES Final Re sult [facility] [address] [place] [address], * (ABNORMAL) Complete blood count (12/13/2024 5:39 AM EDT) WBC 11.9(H) 4.8 - 10.8 K/mcL LAB HEMETOLOGY METHOD 12/13/2024 9:30 AM [facility] RBC 3.30(L) 4.50 - 5.50 M/mcL LAB HEMETOLOGY METHOD 12/13/2024 9:30 AM T [facility] Hemoglobin 9.8(L) 13.5 - 17.5 g/dL LAB HEMETOLOGY METHOD 12/13/2024 9:30 AM [facility] Hematocrit 32.6(L) 42.0 - 54.0 % LAB HEMETOLOGY METHOD 12/13/2024 9:30 AM [facility] MCV 97.6 79.0 - 98.0 FL LAB HEMETOLOGY METHOD 12/13/2024 9:30 AM EDT [facility] MCH 29.3 27.0 - 32.0 pcg LAB HEMETOLOGY METHOD 12/13/2024 9:30 AM EDT [facility] MCHC 30.1(L) 32.0 - 37.0 g/dL LAB HEMETOLOGY METHOD 12/13/2024 9:30 AM EDT [facility] RDW 14.8 11.0 - 15.0 % LAB HEMETOLOGY METHOD 12/13/2024 9:30 AM EDT [facility] Platelets 661(H) 130 - 400 K/mcL LAB HEMETOLOGY METHOD 12/13/2024 9:30 AM EDT [facility] MPV 10.5 7.0 - 11.0 FL LAB HEMETOLOGY METHOD 12/13/2024 9:30 AM EDT [facility] NRBC 0.0 <1.0 % LAB HEMETOLOGY METHOD 12/13/2024 9:30 AM EDT [facility] NRBC Absolute 0.00 <0.10 K/mcL LAB HEMETOLOGY METHOD 12/13/2024 9:30 AM EDT [facility] Blood Venous blood specimen / Unknown Venipuncture / Unknown 12/13/2024 5:39 AM EDT 12/13/2024 8:46 AM EDT us Sonya BRUMFIELD LAB BLOOD ORDERABLES Final Re sult [facility] [address] [place] [address], documented in this encounter Visit Diagnoses Diagnosis Encounter for other general examination documented in this encounter Care Teams Back Maker Relationship Specialty Start Date End Date Handy Elias MD [address] [place] [address] PCP - General Internal Medicine 01/13/18 documented as of this encounter
--- OUTSIDE RECORDS SUMMARY | 2025-02-09 19:21 | XMS_ITS | Encounter Summary ---
Author Organization [facility] Address [address] [place] [address] Care Team Providers Care Doors Prefitter Name Role Phone Handy Elias MD Primary Care Provider +1 -[phone] Encounter Details Date Type Department Care Team (Late st Contact Info) Description 12/16/2024 Lab Requisition [facility] - Main Lab [address] [facility] [place] [address] Sonya Real PA [address] [place] [address] Social History Tobacco Use Types Packs/Day Years [...] as of this encounter Plan of Treatment Scheduled Orders Name Type Priority Associated Diagnoses Orde r Schedule Urinalysis with reflex microscopic and culture Lab Routine Ordered: 12/16/2024 documented as of this encounter Visit Diagnoses Not on filedocumented in this encounter Care Teams Doors Prefitter Relationship Specialty Start Date End Date Handy Elias MD [address] [place] [address] PCP - General Internal Medicine 01/13/18 documented as of this encounter
--- OUTSIDE RECORDS SUMMARY | 2025-02-09 19:21 | XMS_ITS | Encounter Summary ---
Author Organization [employer] Address [address] [facility] 7 [place] [address] Care Team Providers Care Textiles Sales Representative Name Role Phone Handy Elias MD Primary Care Provider +1- [phone] Reason for Visit * Reason Onset Date Comments Med Refill 09/18/2023 Encounter Details Date Type Department Care Team ([facility] st Contact Info) Description 09/18/2023 Telephone [facility] MEDICINE [address] [place] [address] Handy Elias MD [address] [place], [place] [phone] Med Refill Social History Tobacco Use Types [...] refill : Zolpidem To be sent to: [facility]/pharmacy #[id number] - [place] - [address] [facility] [address] [place] [address] documented in this encounter Plan of Treatment Upcoming Encounters Date Type Department Care Team (Late st Contact Info) Description 02/16/2025 4:00 PM EST Office Visit [facility] MED & PEDS [address] [place] [address] Handy Elias MD [address] [place] [address] 03/01/2025 1:00 PM EST Telemedicine [facility] MED & PEDS [address] [place] [address] Tessa Cox RN [address] [place] [address] documented as of this encounter Visit Diagnoses Not on filedocumented in this encounter Care Teams Textiles Sales Representative Relationship Specialty Start Date End Date Handy Elias MD [address] [place] [address] PCP - General Internal Medicine 11/17/12 [facility] 12/19/24 documented as of this encounter
--- OUTSIDE RECORDS SUMMARY | 2025-02-09 19:21 | XMS_ITS | Encounter Summary ---
Author Organization [employer] Address [address] [facility] 7 [place] [address] Care Team Providers Care Dispensing Operator Name Role Phone Handy Elias MD Primary Care Provider +1- [phone] Reason for Visit * Reason Onset Date Comments Med Refill 06/12/2022 Encounter Details Date Type Department Care Team (Late st Contact Info) Description 06/12/2022 Telephone [facility] MEDICINE [address] [place], [place] [phone] Handy Elias MD [address] [place], [place] [phone] Med Refill Social History Tobacco Use Types [...] Description 02/16/2025 4:00 PM EST Office Visit [facility] MED & PEDS [address] [place] [address] Handy Elias MD [address] [place] [address] 03/01/2025 1:00 PM EST Telemedicine [facility] MED & PEDS [address] [place] [address] Tessa Cox, MARITA [address] [place] [address] documented as of this encounter Visit Diagnoses Not on filedocumented in this encounter Care Teams Dispensing Operator Relationship Specialty Start Date End Date Handy Elias MD [address] [place] [address] PCP - General Internal Medicine 11/17/12 [facility] Health Services 12/19/24 documented as of this encounter
--- OUTSIDE RECORDS SUMMARY | 2025-02-09 19:21 | XMS_ITS | Encounter Summary ---
Author Organization [employer] Address [address] [place] [address] Care Team Providers Care Staff Sonographer Name Role Phone Handy Elias MD Primary Care Provider +1- [phone] Reason for Visit * Reason Onset Date Comments Reschedule 04/01/2023 Encounter Details Date Type Department Care Team (Late st Contact Info) Description 04/01/2023 Telephone [facility] MEDICINE [address] [place] [address] Handy Elias MD [address] [place] [address] Reschedule Social History Tobacco Use Types Packs/Day [...] Tc from Josefina requesting r/s 04/04/2023 appt, lyric writer attempted to schedule no availability. documented in this encounter Plan of Treatment Upcoming Encounters Date Type Department Care Team (Late Contact Info) Description 02/16/2025 4:00 PM EST Office Visit [facility] MED & PEDS [address] [place] [address] Handy Elias MD [address] [place] [address] 03/01/2025 1:00 PM EST Telemedicine [facility] MED & PEDS [address] [place] [address] Tessa Cox RN [address] [place] [address] documented as of this encounter Visit Diagnoses Not on filedocumented in this encounter Care Teams Staff Sonographer Relationship Specialty Start Date End Date Handy Elias MD [address] [place] [address] PCP - General Internal Medicine 11/17/12 [facility] 12/19/24 documented as of this encounter
--- OUTSIDE RECORDS SUMMARY | 2025-02-09 19:21 | XMS_ITS | Encounter Summary ---
Author Organization [facility] Address [address] [place] [address] Care Team Providers Care Improvement Auditor Name Role Phone Handy Elias MD Primary Care Provider +1 -[phone] Encounter Details Date Type Department Care Team (Late st Contact Info) Description 12/08/2024 Lab Requisition [facility] - Main Lab [address] [facility] [place] [address] Sonya Real PA [address] [place] [address] Encounter for other general examination [...] Procedure Name Priority Date/Time Associated Diagnosis Comments VITAMIN B12 AND FOLATE Routine 5:04 AM [...] encounter Results * (ABNORMAL) Complete blood count (12/08/2024 5:04 AM EDT) [facility] Signature WBC 10.9(H) 4.8 - 10.8 K/mcL LAB HEMETOLOGY METHOD 12/08[facility]2024 [facility] RBC 3.40(L) 4.50 - 5.50 M/mcL LAB HEMETOLOGY METHOD 12/08/2024 10:50 AM [facility] Hemoglobin 10.1(L) 13.5 - 17.5 g/dL LAB HEMETOLOGY METHOD 12/08/2024 10:50 AM [facility] Hematocrit 33.5(L) 42.0 - 54.0 % LAB HEMETOLOGY METHOD 12/08/2024 10:50 AM [facility] MCV 98.0 79.0 - 98.0 FL LAB HEMETOLOGY METHOD 12/08/2024 10:50 AM [facility] MCH 29.5 27.0 - 32.0 pcg LAB HEMETOLOGY METHOD 12/08/2024 10:50 AM [facility] MCHC 30.1(L) 32.0 - 37.0 g/dL LAB HEMETOLOGY METHOD 12/08/2024 10:[address] [facility] RDW 14.8 11.0 - 15.0 % LAB HEMETOLOGY METHOD 12/08/2024 10:[address] [facility] Platelets 698(H) 130 - 400 K/mcL LAB HEMETOLOGY METHOD 12/08/2024 10:50 AM [facility] MPV 10.5 7.0 - 11.0 FL LAB HEMETOLOGY METHOD 12/08/2024 10:[address] [facility] NRBC 0.0 <1.0 % LAB HEMETOLOGY METHOD 12/08/2024 10:[address] [facility] NRBC Absolute 0.00 <0.10 K/mcL LAB HEMETOLOGY METHOD 12/08/2024 10:[address] [facility] Blood Venous blood specimen / Unknown Venipuncture / Unknown 12/08/2024 5:04 AM EDT 12/08/2024 9:52 AM EDT us Sonya BRUMFIELD LAB BLOOD ORDERABLES Final Re sult Performing Organization Address City/[facility]/ZIP Co de Phone Number [facility] [address] [place] [address], [place] [phone] * Ferritin (12/08/2024 5:04 AM EDT) Pathologist [facility] Ferritin 85 26 - 388 ng/mL LAB CHEMISTRY METHOD 12/08/2024 12:[address] [facility] Blood Venous blood specimen / Unknown Venipuncture / Unknown 12/08/2024 5:04 AM EDT 12/08/2024 9:52 AM EDT us Sonya BRUMFIELD LAB BLOOD ORDERABLES Final Re sult [facility] [address] [place] [address], [place] [phone] * (ABNORMAL) Comprehensive metabolic panel (12/08/2024 5:04 AM EDT) Sodium 136 133 - 145 mmol/L LAB CHEMISTRY METHOD 12/08/2024 12:[address] [facility] Potassium 4.6 3.5 - 5.5 mmol/L LAB CHEMISTRY METHOD 12/08/2024 12:[address] [facility] Chloride 104 96 - 110 mmol/L LAB CHEMISTRY METHOD 12/08/2024 12:01 PM [facility] CO2 23 21 - 32 mmol/L LAB CHEMISTRY METHOD 12/08/2024 12:01 PM [facility] Anion Gap 9 3 - 11 LAB CHEMISTRY METHOD 12/08/2024 12:01 PM [facility] Glucose 84 70 - 100 mg/dL LAB CHEMISTRY METHOD 12/08/2024 12:01 PM [facility] BUN 23 5 - 25 mg/dL LAB CHEMISTRY METHOD 12/08/2024 12:01 PM [facility] Creatinine 1.31(H) 0.70 - 1.30 mg/dL LAB CHEMISTRY METHOD 12/08/2024 12:01 PM [facility] eGFR 60 >=60 mL/min/1. 73m2 LAB CHEMISTRY METHOD 12/08/2024 12:01 PM [facility] Comment:Calculation based on the Chronic Kidney Disease Epidemiology Collaboration (CKD-EPI) equation refit without adjustment for race. BUN/Creatinine Ratio 17.6 LAB CHEMISTRY METHOD 12/08/2024 12:01 PM [facility] Calcium 9.1 8.5 - 10.5 mg/dL LAB CHEMISTRY METHOD 12/08/2024 12:01 [facility] AST (SGOT) 21 10 - 42 unit/L LAB CHEMISTRY METHOD 12/08/2024 12:01 [facility] ALT (SGPT) 22 10 - 60 unit/L LAB CHEMISTRY METHOD 12/08/2024 12:01 PM [facility] Alkaline Phosphatase 80 42 - 121 unit/L LAB CHEMISTRY METHOD 12/08/2024 12:01 PM [facility] Total Protein 7.7 6.0 - 8.0 g/dL LAB CHEMISTRY METHOD 12/08/2024 12:01 PM [facility] Albumin 2.4(L) 3.2 - 5.0 g/dL LAB CHEMISTRY METHOD 12/08/2024 12:[address] [facility] Total Bilirubin 0.3 0.0 - 1.4 mg/dL LAB CHEMISTRY METHOD 12/08/2024 12:[address] [facility] Blood Venous blood specimen / Unknown Venipuncture / Unknown 12/08/2024 5:04 AM EDT 12/08/2024 9:52 AM EDT Sonya BRUMFIELD LAB BLOOD ORDERABLES Final Re sult Performing Organization Address City/[facility]/ZIP Co de Phone Number [facility] [address] [place] [address], [place] [phone] * Vitamin B12 and folate (12/08/2024 5:04 AM EDT) Pathologist [facility] Vitamin B-12 539 250 - 900 pcg/mL LAB CHEMISTRY METHOD 12/08/2024 12:[address] [facility] Folate 6.2 2.8 - 17.0 ng/ml LAB CHEMISTRY METHOD 12/08/2024 12:[address] [facility] Blood Venous blood specimen / Unknown Venipuncture / Unknown 12/08/2024 5:04 AM EDT 12/08/2024 9:52 AM EDT Sonya BRUMFIELD LAB BLOOD ORDERABLES Final Re sult [facility] [address] [place] [address], [place] [phone] * (ABNORMAL) Iron and TIBC (12/08/2024 5:04 AM EDT) Iron 30(L) 50 - 160 mcg/dL LAB CHEMISTRY METHOD 12/08/2024 11:[address] [facility] TIBC 244(L) 250 - 450 mcg/dL LAB CHEMISTRY METHOD 12/08/2024 11:[address] [facility] Iron Saturation 12(L) 20 - 50 % LAB CHEMISTRY METHOD 12/08/2024 11:[address] [facility] Blood Venous blood specimen / Unknown Venipuncture / Unknown 12/08/2024 5:04 AM EDT 12/08/2024 9:52 AM EDT us Sonya BRUMFIELD LAB BLOOD ORDERABLES Final Re sult [facility] [address] [place] [address], documented in this encounter Visit Diagnoses Diagnosis Encounter for other general examination documented in this encounter Care Teams Improvement Auditor Relationship Specialty Start Date End Date Handy Elias MD [address] [place] [address] PCP - General Internal Medicine 01/13/18 documented as of this encounter
--- OUTSIDE RECORDS SUMMARY | 2025-02-09 19:21 | XMS_ITS | Encounter Summary ---
Author Organization [employer] Address [address] [place] [address] 7 [place] [address] Care Team Providers Care Product Marketing Specialist Name Role Phone Handy Elias MD Primary Care Provider +1- [phone] Encounter Details Date Type Department Care Team (Late st Contact Info) Description 2022 Abstract [facility] MEDICINE [address] [place], [place] [phone] ProviderMelanie MD Social History Tobacco Use Types [...] [facility] MED & PEDS 505 [place], [place] [phone] Handy Elias MD 505 [place] [address] 03/01/2025 1:00 PM EST Telemedicine [facility] 505 [place], [place] [phone] Tessa Cox, MARITA 505 [place] [address] documented as of this encounter Visit Diagnoses Not on filedocumented in this encounter Care Teams Product Marketing Specialist Relationship Specialty Start Date End Date Handy Elias MD 505 [place] [address] PCP - General Internal Medicine 11/17/12 [facility] 12/19/24 documented as of this encounter
--- OUTSIDE RECORDS SUMMARY | 2025-02-09 19:21 | XMS_ITS | Encounter Summary ---
Author Organization [employer] Address 75 [facility] 7 [place] [address] Care Team Providers Care Inspector Name Role Phone Handy Elias MD Primary Care Provider +1- [phone] Reason for Visit * Reason Onset Date Comments Med Refill 01/14/2024 Encounter Details Date Type Department Care Team ([facility] st Contact Info) Description 01/14/2024 Telephone [facility] MEDICINE 230 [place] [address] Handy Elias MD 505 [place], [place] [phone] Med Refill Social History Tobacco Use Types [...] immediate release tablet To be sent to: [facility]/pharmacy #[id number] - [place] - [address] [place] [address] AT [address], [facility] [facility] documented in this encounter Plan of Treatment Upcoming Encounters Date Type Department Care Team (Late st Contact Info) Description 02/16/2025 4:00 PM EST Office Visit [facility] MED [facility]EDS 505 [place] [address] Handy Elias MD 505 [place] [address] 03/01/2025 1:00 PM EST Telemedicine [facility] MED & PEDS 505 [place] [address] Tessa Cox RN 505 [place] [address] documented as of this encounter Visit Diagnoses Not on filedocumented in this encounter Care Teams Inspector Relationship Specialty Start Date End Date Handy Elias MD 505 [place] [address] PCP - General Internal Medicine 11/17/12 [facility] 12/19/24 documented as of this encounter
--- OUTSIDE RECORDS SUMMARY | 2025-02-09 19:21 | XMS_ITS | Encounter Summary ---
Author Organization [employer] Address [address] [place] [address] Care Team Providers Care President & Founder Name Role Phone Handy Elias MD Primary Care Provider +1- [phone] Reason for Referral * Consultation (Routine) - Closed Specialty Diagnoses / Procedures Referred By Contac t Referred To Contact Pain Medicine Diagnoses Chronic midline low back pain, unspecified whether sciatica present Handy Elias MD 505 [place] [address] Phone: tel: fax: Earnest Gardner MD [address] [place] [address] [address] [place] [address] Phone: tel: fax: Referral ID Status Reason Start Date Expiration Date V isits Requested Visits Authorized [id number] Closed Specialty Services Required 06/23/2024 06/23/2025 1 1 Encounter Details Date Type Department Care Team (Late st Contact Info) Description 06/23/2024 Orders Only [facility] MED & PEDS [address] [place], [place] [phone] Handy Elias MD 505 [place], [place] [phone] Chronic midline low back pain, unspecified whether [...] 02/16/2025 4:00 PM EST Office Visit [facility] MED & PEDS 505 [place] [address] Handy Elias MD 505 [place] [address] 03/01/2025 1:00 PM EST Telemedicine [facility] MED & PEDS [address] [place] [address] Tessa Cox, MARITA 505 [place] [address] Scheduled Referrals Name Type Priority Associated Diagnoses [...] documented as of this encounter Care Teams President & Founder Relationship Specialty Start Date End Date Handy Elias MD 505 [place] [address] PCP - General Internal Medicine 11/17/12 [facility] 12/19/24 documented as of this encounter
--- OUTSIDE RECORDS SUMMARY | 2025-02-09 19:21 | XMS_ITS | Encounter Summary ---
Author Organization [employer] Address 75 [facility] 7 [place] [address] Care Team Providers Care Privacy Officer Name Role Phone Handy Elias MD Primary Care Provider +1- [phone] Reason for Visit * Reason Onset Date Comments Med Refill 11/16/2024 Encounter Details Date Type Department Care Team ([facility] st Contact Info) Description 11/16/2024 Refill [facility] CH[facility] MED & PEDS [address] [place], [place] [phone] Handy Elias MD 505 [place], [place] [phone] Primary insomnia Social History Tobacco Use Types [...] Description 02/16/2025 4:00 PM EST Office Visit [facility] MED & PEDS [address] [place] [address] Handy Elias MD 505 [place] [address] 03/01/2025 1:00 PM EST Telemedicine [facility] MED & PEDS [address] [place] [address] Tessa Cox, MARITA 505 [place] [address] documented as of this encounter Visit Diagnoses Diagnosis Primary insomnia Persistent disorder of initiating or maintaining sleep documented in this encounter Additional Health Concerns Assessment Noted Time PHQ-9 Depression Total Score: 2 05/09/19 25 2:07 PM EDT documented as of this encounter Care Teams Privacy Officer Relationship Specialty Start Date End Date Handy Elias MD 505 [place] [address] PCP - General Internal Medicine 11/17/12 [facility] 12/19/24 documented as of this encounter
--- OUTSIDE RECORDS SUMMARY | 2025-02-09 19:21 | XMS_ITS | Encounter Summary ---
Author Organization [employer] Address [address] [place] [address] [place] [address] Care Team Providers Care Main Line Station Engineer Name Role Phone Handy Elias MD Primary Care Provider +1- [phone] Reason for Visit * Reason Onset Date Comments Med Refill 02/13/2023 Encounter Details Date Type Department Care Team (Late st Contact Info) Description 02/13/2023 Telephone [facility] MEDICINE 230 [place], [place] [phone] Handy Elias MD 505 [place], [place] [phone] Med Refill Social History Tobacco Use Types [...] oxyCODONE (Roxicodone) 5 MG immediate release tablet [facility]/pharmacy #[id number] - [place] - [address] [place] [address] AT [address], [address]AR [facility] [address] documented in this encounter Plan of Treatment Upcoming Encounters Date Type Department Care Team ([facility] st Contact Info) Description 02/16/2025 4:00 PM EST Office Visit [facility] MED & PEDS 505 [place] [address] Handy Elias MD 505 [place] [address] 03/01/2025 1:00 PM EST Telemedicine [facility] MED & PEDS 505 [place] [address] Tessa Cox, MARITA 505 [place] [address] documented as of this encounter Visit Diagnoses Not on filedocumented in this encounter Care Teams Main Line Station Engineer Relationship Specialty Start Date End Date Handy Elias MD 505 [place] [address] PCP - General Internal Medicine 11/17/12 [facility] 12/19/24 documented as of this encounter
--- OUTSIDE RECORDS SUMMARY | 2025-02-09 19:21 | XMS_ITS | Encounter Summary ---
Author Organization [employer] Address [address] [facility] [address] 7t [place] [address] Care Team Providers Care Pipe Organ Mechanic Apprentice Name Role Phone Handy Elias MD Primary Care Provider [phone] Encounter Details Date Type Department Care Team (Late st Contact Info) Description 05/11/2024 Orders Only [facility] MED & PEDS [address] [place], [place] [phone] Provider, MD Melanie Social History Tobacco Use [...] the past 12 months, has t he [employer] oil or water company threatened to shut [...] 02/16/2025 4:00 PM EST Office Visit [facility] MED & PEDS 505 [place] [address] Handy Elias MD 505 [place] [address] 03/01/2025 1:00 PM EST Telemedicine [facility] MED & PEDS 505 [place] [address] Tessa Cox, RN 505 [place] [address] documented as of this encounter Procedures Procedure [...] documented as of this encounter Care Teams Pipe Organ Mechanic Apprentice Relationship Specialty Start Date End Date Handy Elias MD 505 [place] [address] PCP - General Internal Medicine 11/17/12 [facility] 12/19/24 documented as of this encounter
--- OUTSIDE RECORDS SUMMARY | 2025-02-09 19:21 | XMS_ITS | Encounter Summary ---
Author Organization [employer] Address 75 [facility] 7 [place] [address] Care Team Providers Care Animal Anatomist Name Role Phone Handy Elias MD Primary Care Provider [phone]- [phone] Reason for Visit * Reason Onset Date Comments FYI 01/05/2025 Encounter Details Date Type Department Care Team ([facility] st Contact Info) Description 01/05/2025 Telephone [facility] MEDICINE 230 [place], [place] [phone] Handy Elias MD 505 [place], [place] [phone] FYI Social History Tobacco Use Types Packs/Day Years [...] encounter Miscellaneous Notes * Telephone Encounter - Shagufta Oconnell - 01/05/2025 2:15 PM EST Tc from Kathleen stating that the schedule for skill nursing was change for 1 week. If there are any inconveniences, please contact Kathleen at [phone] documented in this encounter Plan of Treatment Upcoming Encounters Date Type Department Care Team ([facility] st Contact Info) Description 02/16/2025 4:00 PM EST Office Visit [facility] MED & PEDS 505 [place] [address] Handy Elias MD 505 [place] [address] 03/01/2025 1:00 PM EST Telemedicine [facility] MED & PEDS 505 [place] [address] Tessa Cox RN 505 [place] [address] documented as of this encounter Visit Diagnoses Not on filedocumented in this encounter Additional Health Concerns Assessment Noted Time PHQ-9 Depression Total Score: 2 05/09/19 25 2:07 PM EDT documented as of this encounter Care Teams Animal Anatomist Relationship Specialty Start Date End Date Handy Elias MD [address] [place] [address] PCP - General Internal Medicine 11/17/12 [facility] 12/19/24 documented as of this encounter
--- OUTSIDE RECORDS SUMMARY | 2025-02-09 19:21 | XMS_ITS | Encounter Summary ---
Author Organization [employer] Address 75 [facility] 7 [place] [address] Care Team Providers Care Quality Assurance Supervisor Body Name Role Phone Handy Elias MD Primary Care Provider [phone]- [phone] Reason for Visit * Reason Onset Date Comments Hospital Follow-up 01/06/2025 Encounter Details Date Type Department Care Team (Late st Contact Info) Description 01/06/2025 Telephone [facility] MEDICINE 230 [place] [address] Handy Elias MD 505 [place], [place] [phone] Hospital Follow-up Social History Tobacco Use Types Packs/Day Years [...] * Telephone Encounter - Shagufta Oconnell - 01/06/2025 9:16 AM EST Tc from pt requesting to reschedule appointment from 01/06 Please contact pt at [phone] documented in this encounter Plan of Treatment Upcoming Encounters Date Type Department Care Team ([facility] st Contact Info) Description 02/16/2025 4:00 PM EST Office Visit [facility] MED & PEDS 505 [place] [address] Handy Elias MD 505 [place] [address] 03/01/2025 1:00 PM EST Telemedicine [facility] MED & PEDS 505 [place] [address] Tessa Cox RN 505 [place] [address] documented as of this encounter Visit Diagnoses Not on filedocumented in this encounter Additional Health Concerns Assessment Noted Time PHQ-9 Depression Total Score: 2 05/09/19 25 2:07 PM EDT documented as of this encounter Care Teams Quality Assurance Supervisor Body Relationship Specialty Start Date End Date Handy Elias MD [address] [place] [address] PCP - General Internal Medicine 11/17/12 [facility] 12/19/24 documented as of this encounter
--- OUTSIDE RECORDS SUMMARY | 2025-02-09 19:22 | XMS_ITS | Encounter Summary ---
Author Organization [employer] Address 75 [facility] 7 [place] [address] Care Team Providers Care Curriculum Coach Name Role Phone Handy Elias MD Primary Care Provider [phone]- [phone] Reason for Visit * Reason Onset Date Comments Call Back Request 05/14/2023 Encounter Details Date Type Department Care Team (Late st Contact Info) Description 05/14/2023 Telephone [facility] MEDICINE 230 [place], [place] [phone] Handy Elias MD 505 [place] [address] Call Back Request Social History Tobacco Use [...] 4:00 PM EST Office Visit [facility] MED & PEDS 505 [place] [address] Handy Elias MD 505 [place] [address] 03/01/2025 1:00 PM EST Telemedicine [facility] MED & PEDS 505 [place] [address] Tessa Cox RN 505 [place] [address] documented as of this encounter Visit Diagnoses Not on filedocumented in this encounter Care Teams Curriculum Coach Relationship Specialty Start Date End Date Handy Elias MD 505 [place] [address] PCP - General Internal Medicine 11/17/12 [facility] 12/19/24 documented as of this encounter
--- OUTSIDE RECORDS SUMMARY | 2025-02-09 19:22 | XMS_ITS | Encounter Summary ---
Author Organization [employer] Address 75 [facility] 7t [place] [address] Care Team Providers Care Topline Beading Machine Tender Name Role Phone Handy Elias MD Primary Care Provider [phone] [phone] Encounter Details Date Type Department Care Team ([facility] st Contact Info) Description 08/12/2024 Orders Only [facility] CHC MED & PEDS 505 [place], [place] [phone] Handy Elias MD 505 [place], [place] [phone] Other insomnia (Primary Dx) Social History Tobacco [...] Description 02/16/2025 4:00 PM EST Office Visit [facility] MED & PEDS 505 [place] [address] Handy Elias MD 505 [place] [address] 03/01/2025 1:00 PM EST Telemedicine [facility] MED & PEDS 505 [place] [address] Tessa Cox RN 505 [place] [address] documented as of this encounter Procedures Procedure Name Priority Date/Time Associated Diagnosis Comments XR CHEST 2 VIEWS Routine 09/04/2024 2:58 PM EDT documented in this encounter Results * XR Chest 2 Views (09/04/2024 2:58 PM EDT) Anatomical Region Laterality Modality Chest Radiographic Ame ging 09/04/2024 2:58 PM EDT Narrative 09/04/2024 3:14 PM EDT [address] [address] XRay Report Signed Patient: Henri Espino MR#: [id number] [birth year] : 1960 Acct:[id number] Age/Sex: 64 / M ADM Date: 09/04/24 Loc: HO.XRAY Attending Dr: Stephen Bahena MD Ordering Physician: Stephen Bahena MD Date of Service: 09/04/24 Procedure(s): XR chest 2V Accession Number(s): [id number] cc: Handy Elias MD; Stephen Bahena MD [...] 09/04/24 1511 DD/ 1458 TD/TT: 09/04/24 1500 Legal Administrative Assistant: Procedure Note Donotuseinterpreter, Image - 09/04/2024 [place] [address] XRay Report Signed Patient: Henri Espino FMR#: [id number] 79 : 1960cct:[id number] Age/Sex: 64 / MADM Date: 09/04/24 Loc: [facility] Attending Dr: Stephen Bahena MD Ordering Physician: Stephen Bahena MD Date of Service: 09/04/24 Procedure(s): XR chest 2V Accession Number(s): [id number] cc: Handy Elias MD; Stephen Bahena MD [...] 09/04/24 1511 DD/ 1458 TD/TT: 09/04/24 1500 Legal Administrative Assistant: [facility] External Provider IMG XR PROCEDURES Final Result documented in this encounter Visit Diagnoses Diagnosis Other insomnia- Primary documented in this encounter Additional Health Concerns Assessment Noted Time PHQ-9 Depression Total Score: 2 05/09/19 25 2:07 PM EDT documented as of this encounter Care Teams Topline Beading Machine Tender Relationship Specialty Start Date End Date Handy Elias MD [address] [place] [address] PCP - General Internal Medicine 11/17/12 [facility] 12/19/24 documented as of this encounter
--- OUTSIDE RECORDS SUMMARY | 2025-02-09 19:22 | XMS_ITS | Encounter Summary ---
Author Organization [facility] Address [address] [place] [address] Care Team Providers Care Electrician Elevator Maintenance Name Role Phone Handy Elias MD Primary Care Provider +1 -[phone] Encounter Details Date Type Department Care Team (Late st Contact Info) Description 12/03/2024 Lab Requisition [facility] - Main Lab [address] [facility] [place] [address] Bradley Valdes MD [address] [place] [address] Encounter for other general examination Social History [...] Comments MANUAL DIFFERENTIAL - SYSMEX WAM Routine 12/03/2024 5:06 AM EDT Encounter for other general examination CBC WITH AUTO DIFFERENTIAL Routine 12/03/2024 5:06 AM EDT Encounter for other general examination CBC AND DIFFERENTIAL Routine 12/03/2024 5:06 AM EDT Encounter for other general examination documented in this encounter Results * (ABNORMAL) Manual differential (12/03/2024 5:06 AM EDT) Neutrophils % 60.0 % LAB HEMETOLOGY METHOD 5 12:15 PM [facility] Lymphocytes % 17.0 % LAB HEMETOLOGY METHOD 5 12:15 PM [facility] Monocytes % 17.0 % LAB HEMETOLOGY METHOD 5 12:15 PM [facility] Eosinophils % 3.0 % LAB HEMETOLOGY METHOD 5 12:15 PM [facility] Basophils % 0.0 % LAB HEMETOLOGY METHOD 5 12:15 PM [facility] Metamyelocytes % 1.0(H) % LAB HEMETOLOGY METHOD 5 12:15 PM [facility] Myelocytes % 2.0(H) % LAB HEMETOLOGY METHOD 5 12:15 PM [facility] Promyelocytes % 1.0(H) % LAB HEMETOLOGY METHOD 5 12:15 PM [facility] Neutrophils Absolute Manual 7.08(H) 1.50 - 7.00 K/mcL LAB HEMETOLOGY METHOD 5 12:15 PM [facility] Lymphocytes Absolute 2.01 1.00 - 5.00 K/mcL LAB HEMETOLOGY METHOD 5 12:15 PM [facility] Monocytes Absolute Manual 2.01(H) 0.20 - 1.00 K/mcL LAB HEMETOLOGY METHOD 5 12:15 PM [facility] Eosinophils Absolute Manual 0.35 0.00 - 0.50 K/mcL LAB HEMETOLOGY METHOD 5 12:15 PM [facility] Basophils Absolute Manual 0.00 0.00 - 0.20 K/[facility] LAB HEMETOLOGY METHOD 5 12:15 PM EDT [facility] Metamyelocytes Absolute Manual 0.12(H) 0.00 - 0.00 K/mcL LAB HEMETOLOGY METHOD 5 12:15 PM EDT [facility] LAB Myelocytes Absolute Manual 0.24(H) 0.00 - 0.00 K/[facility] LAB HEMETOLOGY METHOD 5 12:15 PM EDT [facility] LAB Promyelocytes Absolute Manual 0.12(H) 0.00 - 0.00 K/[facility] LAB HEMETOLOGY METHOD 12:15 PM EDT [facility] Rbc Morphology Consistent with indices Consistent with indices, Normal for [place] LAB HEMETOLOGY METHOD 12:15 PM EDT [facility] Platelet Morphology - WAM See Note(A) Normal LAB HEMETOLOGY METHOD 12:15 PM EDT [facility] LAB Comment:PLT: Large platelets seen Blood Venous blood specimen / Unknown Venipuncture / Unknown 12/03/2024 5:06 AM EDT 12/03/2024 10:15 AM EDT us Bradley Valdes MD LAB BLOOD ORDERABLES Final Resu lt [facility] [address] [place] [address], * (ABNORMAL) CBC auto differential (12/03/2024 5:06 AM EDT) WBC 11.8(H) 4.8 - 10.8 K/mcL LAB HEMETOLOGY METHOD 12/03/2024 12:15 PM EDT [facility] RBC 3.60(L) 4.50 - 5.50 M/mcL LAB HEMETOLOGY METHOD 12/03/2024 12:15 PM EDT [facility] Hemoglobin 10.9(L) 13.5 - 17.5 g/dL LAB HEMETOLOGY METHOD 12/03/2024 12:15 PM [facility] Hematocrit 35.5(L) 42.0 - 54.0 % LAB HEMETOLOGY METHOD 12/03/2024 12:15 PM [facility] MCV 98.9(H) 79.0 - 98.0 FL LAB HEMETOLOGY METHOD 12/03/2024 12:15 PM [facility] MCH 30.4 27.0 - 32.0 pcg LAB HEMETOLOGY METHOD 12/03/2024 12:15 PM [facility] MCHC 30.7(L) 32.0 - 37.0 g/dL LAB HEMETOLOGY METHOD 12/03/2024 12:15 PM [facility] RDW 15.1(H) 11.0 - 15.0 % LAB HEMETOLOGY METHOD 12/03/2024 12:15 PM [facility] Platelets 736(H) 130 - 400 K/mcL LAB HEMETOLOGY METHOD 12/03/2024 12:15 PM [facility] MPV 10.0 7.0 - 11.0 FL LAB HEMETOLOGY METHOD 12/03/2024 12:15 PM [facility] NRBC 0.0 <1.0 % LAB HEMETOLOGY METHOD 12/03/2024 12:15 PM [facility] NRBC Absolute 0.00 <0.10 K/mcL LAB HEMETOLOGY METHOD 12/03/2024 12:15 PM [facility] Blood Venous blood specimen / Unknown Venipuncture / Unknown 12/03/2024 5:06 AM EDT 12/03/2024 10:15 AM EDT us Bradley Valdes MD LAB BLOOD ORDERABLES Final Resu lt [facility] [address] [place] [address], documented in this encounter Visit Diagnoses Diagnosis Encounter for other general examination documented in this encounter Care Teams Electrician Elevator Maintenance Relationship Specialty Start Date End Date Handy Elias MD [address] [place] [address] PCP - General Internal Medicine 01/13/18 documented as of this encounter
--- OUTSIDE RECORDS SUMMARY | 2025-02-09 19:22 | XMS_ITS | Encounter Summary ---
Author Organization [employer] Address [address] [place] [address] 7 [place] [address] Care Team Providers Care Insurance Customer Service Specialist Name Role Phone Handy Elias MD Primary Care Provider +1- [phone] Encounter Details Date Type Department Care Team (Late st Contact Info) Description 05/14/2023 Orders Only [facility] MED & PEDS 505 [place], [place] [phone] Handy Elias MD 505 [place], [place] [phone] Mood disorder (CMS/HCC) (Primary Dx) Social History [facility] [address] [place], [place] [phone] Handy Elias MD 505 [place] [address] 03/01/2025 1:00 PM EST Telemedicine [facility] MED & PEDS 505 [place] [address] Tessa Cox, MARITA 505 [facility] [place] [address] documented as of this encounter Visit Diagnoses Diagnosis Mood disorder (CMS/HCC)- Primary Unspecified episodic mood disorder documented in this encounter Care Teams Insurance Customer Service Specialist Relationship Specialty Start Date End Date Handy Elias MD 505 [facility] [place] [address] PCP - General Internal Medicine 11/17/12 [facility] 12/19/24 documented as of this encounter
--- OUTSIDE RECORDS SUMMARY | 2025-02-09 19:22 | XMS_ITS | Encounter Summary ---
Author Organization [facility] Address [address] [place] [address] Care Team Providers Care Cow Trimmer Name Role Phone Handy Elias MD Primary Care Provider [phone] [phone] Encounter Details Date Type Department Care Team (Late st Contact Info) Description 11/14/2024 Lab Requisition [facility] - Main Lab 299 [facility] [address] Myriam Heath PA [address] [place] [phone] Encounter for other general examination Social History [...] Comments MANUAL DIFFERENTIAL - SYSMEX WAM Routine 11/14/2024 [...] this encounter Results * (ABNORMAL) Manual differential (11/14/2024 6:42 AM EDT) Neutrophils % 76.0 % LAB HEMETOLOGY METHOD 11/14/2024 10:42 AM [facility] Bands % 2.0 % LAB HEMETOLOGY METHOD 11/14/2024 10:42 AM [facility] Lymphocytes % 4.0 % LAB HEMETOLOGY METHOD 11/14/2024 10:42 AM [facility] Reactive Lymphocyte 3.00 % LAB HEMETOLOGY METHOD 11/14/2024 10:42 AM [facility] Monocytes % 10.0 % LAB HEMETOLOGY METHOD 11/14/2024 10:42 AM [facility] Eosinophils % 0.0 % LAB HEMETOLOGY METHOD 11/14/2024 10:42 AM [facility] Basophils % 0.0 % LAB HEMETOLOGY METHOD 11/14/2024 10:42 AM [facility] Metamyelocytes % 3.0(H) % LAB HEMETOLOGY METHOD 11/14/2024 10:42 AM [facility] Myelocytes % 1.0(H) % LAB HEMETOLOGY METHOD 11/14/2024 10:42 AM [facility] Promyelocytes % 2.0(H) % LAB HEMETOLOGY METHOD 11/14/2024 10:42 AM [facility] Neutrophils Absolute Manual 19.00(H) 1.50 - 7.00 K/mcL LAB HEMETOLOGY METHOD 11/14/2024 10:42 AM [facility] Bands Absolute Manual 0.50(H) 0.00 - 0.00 K/mcL LAB HEMETOLOGY METHOD 11/14/2024 10:42 AM EDT [facility] Lymphocytes Absolute 1.00 1.00 - 5.00 K/mcL LAB HEMETOLOGY METHOD 11/14/2024 10:42 AM [facility] Reactive Lymph Abs Manual 0.75(H) 0.00 - 0.00 lym LAB HEMETOLOGY METHOD 11/14/2024 10:42 AM EDT [facility] Monocytes Absolute Manual 2.50(H) 0.20 - 1.00 K/mcL LAB HEMETOLOGY METHOD 11/14/2024 10:42 AM [facility] Eosinophils Absolute Manual 0.00 0.00 - 0.50 K/mcL LAB HEMETOLOGY METHOD 11/14/2024 10:42 AM [facility] Basophils Absolute Manual 0.00 0.00 - 0.20 K/mcL LAB HEMETOLOGY METHOD 11/14/2024 10:42 AM [facility] Metamyelocytes Absolute Manual 0.75(H) 0.00 - 0.00 K/mcL LAB HEMETOLOGY METHOD 11/14/2024 10:42 AM [facility] Myelocytes Absolute Manual 0.25(H) 0.00 - 0.00 K/mcL LAB HEMETOLOGY METHOD 11/14/2024 10:42 AM EDT [facility] Promyelocytes Absolute Manual 0.50(H) 0.00 - 0.00 K/mcL LAB [facility] R[facility] Morphology Present( A) Consistent with indices, Normal for [place] LAB HEMETOLOGY [facility]24 [facility] Platelet Morphology - WAM See Note(A) Normal LAB HEMETOLOGY METHOD 11/14/2024 10:42 AM EDT [facility] Comment:PLT: Normal Polychromasia Present Present( A) (none) LAB HEMETOLOGY METHOD 11/14/2024 10:42 AM EDT [facility] Blood Venous blood specimen / Unknown Venipuncture / Unknown 11/14/2024 6:42 AM EDT 11/14/2024 9:25 AM EDT us Myriam BRUMFIELD LAB BLOOD ORDERABLES Final Resu lt [facility] [address] [place] [address], * (ABNORMAL) CBC auto differential (11/14/2024 6:42 AM EDT) WBC 25.0(H) 4.8 - 10.8 K/mcL LAB HEMETOLOGY METHOD 11/14/2024 10:42 AM [facility] RBC 3.20(L) 4.50 - 5.50 M/mcL LAB HEMETOLOGY METHOD 11/14/2024 10:42 AM [facility] Hemoglobin 9.8(L) 13.5 - 17.5 g/dL LAB HEMETOLOGY METHOD 11/14/2024 10:42 AM [facility] Hematocrit 32.0(L) 42.0 - 54.0 % LAB HEMETOLOGY METHOD 11/14/2024 10:42 AM [facility] MCV 101.6(H) 79.0 - 98.0 FL LAB HEMETOLOGY METHOD 11/14/2024 10:42 AM [facility] MCH 31.1 27.0 - 32.0 pcg LAB HEMETOLOGY METHOD 11/14/2024 10:42 AM [facility] MCHC 30.6(L) 32.0 - 37.0 g/dL LAB HEMETOLOGY METHOD 11/14/2024 10:42 AM EDT [facility] RDW 15.0 11.0 - 15.0 % LAB HEMETOLOGY METHOD 11/14/2024 10:42 AM EDT [facility] Platelets 784(H) 130 - 400 K/mcL LAB HEMETOLOGY METHOD 11/14/2024 10:42 AM EDT [facility] MPV 10.5 7.0 - 11.0 FL LAB HEMETOLOGY METHOD 11/14/2024 10:42 AM EDT [facility] NRBC 0.2 <1.0 % LAB HEMETOLOGY METHOD 11/14/2024 10:42 AM EDT [facility] NRBC Absolute 0.04 <0.10 K/mcL LAB HEMETOLOGY METHOD 11/14/2024 10:42 AM EDT [facility] Blood Venous blood specimen / Unknown Venipuncture / Unknown 11/14/2024 6:42 AM EDT 11/14/2024 9:25 AM EDT Myriam BRUMFIELD LAB BLOOD ORDERABLES Final Resu lt [facility] [address] [place] [address], * (ABNORMAL) Magnesium (11/14/2024 6:42 AM EDT) Magnesium 1.5(L) 1.9 - 2.6 mg/dL LAB CHEMISTRY METHOD 11/14/2024 10:47 AM EDT [facility] Blood Venous blood specimen / Unknown Venipuncture / Unknown 11/14/2024 6:42 AM EDT 11/14/2024 9:25 AM EDT us Myriam BRUMFIELD LAB BLOOD ORDERABLES Final Resu lt [facility] [address] [place] [address], * (ABNORMAL) Comprehensive metabolic panel (11/14/2024 6:42 AM EDT) Sodium 137 133 - 145 mmol/L LAB CHEMISTRY METHOD 11/14/2024 10:56 AM EDT [facility] Potassium 4.7 3.5 - 5.5 mmol/L LAB CHEMISTRY METHOD 11/14/2024 10:56 AM EDT [facility] Chloride 103 96 - 110 mmol/L LAB CHEMISTRY METHOD 11/14/2024 10:56 AM T [facility] CO2 27 21 - 32 mmol/L LAB CHEMISTRY METHOD 11/14/2024 10:56 AM [facility] Anion Gap 7 3 - 11 LAB CHEMISTRY METHOD 11/14/2024 10:56 AM [facility] Glucose 73 70 - 100 mg/dL LAB CHEMISTRY METHOD 11/14/2024 10:56 AM [facility] BUN 14 5 - 25 mg/dL LAB CHEMISTRY METHOD 11/14/2024 10:56 AM [facility] Creatinine 1.05 0.70 - 1.30 mg/dL LAB CHEMISTRY METHOD 11/14/2024 10:56 AM [facility] eGFR 78 >=60 mL/min/1. 73m2 LAB CHEMISTRY METHOD 11/14/2024 10:56 AM [facility] Comment:Calculation based on the Chronic Kidney Disease Epidemiology Collaboration (CKD-EPI) equation refit without adjustment for race. BUN/Creatinine Ratio 13.3 LAB CHEMISTRY METHOD 11/14/2024 10:56 AM [facility] Calcium 8.3(L) 8.5 - 10.5 mg/dL LAB CHEMISTRY METHOD 11/14/2024 10:56 AM [facility] AST (SGOT) 22 10 - 42 unit/L LAB CHEMISTRY METHOD 11/14/2024 10:56 AM EDT [facility] ALT (SGPT) 27 10 - 60 unit/L LAB CHEMISTRY METHOD 11/14/2024 10:56 AM EDT [facility] Alkaline Phosphatase 95 42 - 121 unit/L LAB CHEMISTRY METHOD 11/14/2024 10:56 AM EDT [facility] Total Protein 5.2(L) 6.0 - 8.0 g/dL LAB CHEMISTRY METHOD 11/14/2024 10:56 AM EDT [facility] Albumin 1.8(L) 3.2 - 5.0 g/dL LAB CHEMISTRY METHOD 11/14/2024 10:56 AM EDT [facility] Total Bilirubin 0.4 0.0 - 1.4 mg/dL LAB CHEMISTRY METHOD 11/14/2024 10:56 AM EDT [facility] Blood Venous blood specimen / Unknown Venipuncture / Unknown 11/14/2024 6:42 AM EDT 11/14/2024 9:25 AM EDT us Myriam BRUMFIELD LAB BLOOD ORDERABLES Final Resu lt [facility] [address] [place] [address], documented in this encounter Visit Diagnoses Diagnosis Encounter for other general examination documented in this encounter Care Teams Cow Trimmer Relationship Specialty Start Date End Date Handy Elias MD [address] [place] [address] PCP - General Internal Medicine 01/13/18 documented as of this encounter
--- OUTSIDE RECORDS SUMMARY | 2025-02-09 19:22 | XMS_ITS | Encounter Summary ---
Author Organization [facility] Address [address] [place] [address] Care Team Providers Care Shank Pinner Name Role Phone Handy Elias MD Primary Care Provider [phone] [phone] Encounter Details Date Type Department Care Team (Late st Contact Info) Description 11/16/2024 Lab Requisition [facility] - Main Lab 299 [facility] [place] [address] Sonya Real PA [address] [place] [address] Encounter for other general examination [...] Procedure Name Priority Date/Time Associated Diagnosis Comments BLOOD CULTURE PATHOGENS BY PCR Routine 11/16/2024 11:40 AM EDT Encounter for other general examination CULTURE BLOOD STAT 11/16/2024 11:40 AM EDT Encounter for other general examination CULTURE BLOOD STAT 11/16/2024 11:40 AM EDT Encounter for other general examination LACTATE STAT 11/16/2024 11:40 AM EDT Encounter for other general examination documented in this encounter Results * Blood culture pathogens molecular study (11/16/2024 11:40 AM EDT) Blood Venous blood specimen / Unknown Venipuncture / Unknown 11/16/2024 11:40 AM EDT 11/16/2024 1:18 PM EDT Narrative [facility] - 11/17/2024 6:42 PM EDT No targets detected by multiplex PCR panel. Refer to culture. Sonya BRUMFIELD LAB MICROBIOLOGY - GENERAL OR DERABLES Final Result Performing Organization Address City/[facility]/ZIP Co de Phone Number [facility] [address] [place] [address], [place] [phone] * Lactate (11/16/2024 11:40 AM EDT) Lactate 1.5 0.4 - 2.0 mmol/L LAB CHEMISTRY METHOD 11/16/2024 1:18 PM EDT [facility] Blood Venous blood specimen / Unknown Venipuncture / Unknown 11/16/2024 11:40 AM EDT 11/16/2024 1:18 PM EDT Sonya BRUMFIELD LAB BLOOD ORDERABLES Final Re sult Performing Organization Address [facility]/ZIP Co de Phone Number [facility] [address] [place] [address], [place] [phone] * (ABNORMAL) Culture blood (11/16/2024 11:40 AM EDT) Culture, Blood Bacteroides thetaiotaomicr on(AA) 11/20/2024 9:36 AM EDT [facility] Comment: Anaerobic susceptibilty testing is not routinely performed, if further therapeutic inforamation is required, please consult an Infectious Disease Specialist. The organism value for this result has been updated. These results have been appended to the previously preliminary verified report. Gram Stain Result Anaerobic bottle Gram negative bacilli(AA) 11/20/2024 9:36 AM EDT [facility] Comment:This is an appended report. These results have been appended to a previously preliminary verified report. Blood Venipuncture / Unknown 11/16/2024 11:40 AM EDT 11/16/2024 1:18 PM EDT Sonya Real [place] LAB MICROBIOLOGY - GENERAL OR DERABLES Final Result Performing Organization Address City/[facility] Co de Phone Number [facility] [address] [place] [address], [place] [phone] * (ABNORMAL) Culture blood (11/16/2024 11:40 AM EDT) Culture, Blood Bacteroides thetaiotaomicr on(AA) 11/20/2024 9:35 AM EDT [facility] Comment: Anaerobic susceptibilty testing is not routinely performed, if further therapeutic inforamation is required, please consult an Infectious Disease Specialist. The organism value for this result has been updated. These results have been appended to the previously preliminary verified report. Gram Stain Result Anaerobic bottle Gram negative bacilli(AA) 11/20/2024 9:35 AM EDT [facility] Comment:This is an appended report. These results have been appended to a previously preliminary verified report. Blood Venipuncture / Unknown 11/16/2024 11:40 AM EDT 11/16/2024 1:18 PM EDT Sonya Real [place] LAB MICROBIOLOGY - GENERAL OR DERABLES Final Result Performing Organization Address City/[facility]/ZIP Co de Phone Number [facility] [address] [place] [address], [place] [phone] documented in this encounter Visit Diagnoses Diagnosis Encounter for other general examination documented in this encounter Care Teams Shank Pinner Relationship Specialty Start Date End Date Handy Elias MD [address] [place] [address] PCP - General Internal Medicine 01/13/18 documented as of this encounter
--- OUTSIDE RECORDS SUMMARY | 2025-02-09 19:22 | XMS_ITS | Clinical Summary ---
Author Organization [facility] Address [address] [place] [id number] Phone Care Team Providers Care Primer Press Operator Name Role Phone Handy Elias MD [...] COLONOSCOPY 2003 RSV VACCINE (1 - Risk 50-74 years 1-dose series) 01/23/2008 ZOSTER VACCINES (2 of 2) 10/20/2022 08/25/2022 PNEUMOCOCCAL VACCINES (50+ years) (2 of 2 - PCV) 11/06/2022 11/06/2021 ABDOMINAL AORTIC ANEURYSM (AAA) SCREENING 2023 INFLUENZA VACCINE (#1) 2024 , 01/03/2021, 11/28/2019, Additional history exists COVID-19 VACCINE ( season) 2024 11/27/2021, 03/23/2021, 10/03/2020, Additional history exists Adult Td,Tdap Booster 11/19/2027 [...] topic Medical Devices Not on file Insurance [employer] SUPPLEMENT [employer] SUPPLEMENT [employer] MEDEX SUPPLEMENT [employer] SUPPLEMENT [employer] SUPPLEMENT [employer]EX SUPPLEMENT Advance Directives For more information, please contact: [phone] (9AM - 5PM [facility], Saturday-Saturday) Documents on File Type Date Recorded Patient Pole Shaver Expl anation Healthcare Proxy 10/19/2022 3:35 PM Care Teams Primer Press Operator Relationship Specialty Start Date End Date Handy Elias MD PCP - General Internal Medicine 08/11/20 Additional Source Comments The information contained in this document represents components of the legal health record. It is not the complete legal health record.[facility]
--- OUTSIDE RECORDS SUMMARY | 2025-02-09 19:22 | XMS_ITS | Encounter Summary ---
Author Organization [facility] Address [address] [place] [address] Care Team Providers Care Facilities Maintenance Worker Name Role Phone Handy Elias MD Primary Care Provider +1 [phone] Encounter Details Date Type Department Care Team (Late st Contact Info) Description 12/05/2024 Lab Requisition [facility] - Main Lab [address] [place] [address] Sonya Real PA [address] [place] [address] Encounter for other general examination [...] Associated Diagnosis Comments COMPLETE BLOOD COUNT Routine 12/05/2024 6:09 AM EDT Encounter for other general examination COMPREHENSIVE METABOLIC PANEL Routine 12/05/2024 6:09 AM EDT Encounter for other general examination documented in this encounter Results * (ABNORMAL) Comprehensive metabolic panel (12/05/2024 6:09 AM EDT) Sodium 136 133 - 145 mmol/L LAB CHEMISTRY METHOD 12/05/2024 11:07 AM [facility] Potassium 4.6 3.5 - 5.5 mmol/L LAB CHEMISTRY METHOD 12/05/2024 11:07 AM [facility] Chloride 104 96 - 110 mmol/L LAB CHEMISTRY METHOD 12/05/2024 11:07 AM [facility] CO2 24 21 - 32 mmol/L LAB CHEMISTRY METHOD 12/05/2024 11:07 AM [facility] Anion Gap 8 3 - 11 LAB CHEMISTRY METHOD 12/05/2024 11:07 AM [facility] Glucose 102(H) 70 - 100 mg/dL LAB CHEMISTRY METHOD 12/05/2024 11:07 AM [facility] BUN 22 5 - 25 mg/dL LAB CHEMISTRY METHOD 12/05/2024 11:07 AM [facility] Creatinine 1.30 0.70 - 1.30 mg/dL LAB CHEMISTRY METHOD 12/05/2024 11:07 AM [facility] eGFR 61 >=60 mL/min/1. 73m2 LAB CHEMISTRY METHOD 12/05/2024 11:07 AM [facility] Comment:Calculation based on the Chronic Kidney Disease Epidemiology Collaboration (CKD-EPI) equation refit without adjustment for race. BUN/Creatinine Ratio 16.9 LAB CHEMISTRY METHOD 12/05/2024 11:07 AM [facility] Calcium 9.6 8.5 - 10.5 mg/dL LAB CHEMISTRY METHOD 12/05/2024 11:07 AM [facility] AST (SGOT) 17 10 - 42 unit/L LAB CHEMISTRY METHOD 12/05/2024 11:07 AM [facility] ALT (SGPT) 23 10 - 60 unit/L LAB CHEMISTRY METHOD 12/05/2024 11:07 AM [facility] Alkaline Phosphatase 92 42 - 121 unit/L LAB CHEMISTRY METHOD 12/05/2024 11:07 AM [facility] Total Protein 7.5 6.0 - 8.0 g/dL LAB CHEMISTRY METHOD 12/05/2024 11:07 AM [facility] Albumin 2.4(L) 3.2 - 5.0 g/dL LAB CHEMISTRY METHOD 12/05/2024 11:07 AM [facility] Total Bilirubin 0.3 0.0 - 1.4 mg/dL LAB CHEMISTRY METHOD 12/05/2024 11:07 AM [facility] Blood Venous blood specimen / Unknown Venipuncture / Unknown 12/05/2024 6:09 AM EDT 12/05/2024 10:03 AM EDT us Sonya BRUMFIELD LAB BLOOD ORDERABLES Final Re sult [facility] [address] [place] [address], * (ABNORMAL) Complete blood count (12/05/2024 6:09 AM EDT) WBC 11.5(H) 4.8 - 10.8 K/[facility] LAB HEMETOLOGY METHOD 12/05/2024 10:42 AM [facility] RBC 3.30(L) 4.50 - 5.50 M/[facility] LAB HEMETOLOGY METHOD 12/05/2024 10:42 AM [facility] Hemoglobin 10.0(L) 13.5 - 17.5 g/dL LAB HEMETOLOGY METHOD 12/05/2024 10:42 AM [facility] Hematocrit 33.5(L) 42.0 - 54.0 % LAB HEMETOLOGY METHOD 12/05/2024 10:42 AM [facility] MCV 100.6(H) 79.0 - 98.0 FL LAB HEMETOLOGY METHOD 12/05/2024 10:42 AM EDT [facility] MCH 30.0 27.0 - 32.0 pcg LAB HEMETOLOGY METHOD 12/05/2024 10:42 AM EDT [facility] MCHC 29.9(L) 32.0 - 37.0 g/dL LAB HEMETOLOGY METHOD 12/05/2024 10:42 AM EDT [facility] RDW 15.0 11.0 - 15.0 % LAB HEMETOLOGY METHOD 12/05/2024 10:42 AM EDT [facility] Platelets 681(H) 130 - 400 K/mcL LAB HEMETOLOGY METHOD 12/05/2024 10:42 AM EDT [facility] MPV 10.1 7.0 - 11.0 FL LAB HEMETOLOGY METHOD 12/05/2024 10:42 AM EDT [facility] NRBC 0.0 <1.0 % LAB HEMETOLOGY METHOD 12/05/2024 10:42 AM EDT [facility] NRBC Absolute 0.00 <0.10 K/mcL LAB HEMETOLOGY METHOD 12/05/2024 10:42 AM T [facility] Blood Venous blood specimen / Unknown Venipuncture / Unknown 12/05/2024 6:09 AM EDT 12/05/2024 10:03 AM EDT us Sonya BRUMFIELD LAB BLOOD ORDERABLES Final Re sult [facility] [address] [place] [address], documented in this encounter Visit Diagnoses Diagnosis Encounter for other general examination documented in this encounter Care Teams Facilities Maintenance Worker Relationship Specialty Start Date End Date Handy Elias MD [address] [place] [address] PCP - General Internal Medicine 01/13/18 documented as of this encounter
--- OUTSIDE RECORDS SUMMARY | 2025-02-09 19:22 | XMS_ITS | Encounter Summary ---
Author Organization [facility] Address [address] [place] [address] Care Team Providers Care Csm Consultant Name Role Phone Handy Elias MD Primary Care Provider [phone] Encounter Details Date Type Department Care Team (Late st Contact Info) Description 11/16/2024 Lab Requisition [facility] - Main Lab [address] [place] [address] Zoila Cruz MD [address] [place] [phone] Encounter for other general examination Social History [...] Procedure Name Priority Date/Time Associated Diagnosis Comments CULTURE WOUND WITH GRAM STAIN Routine 11/16/2024 8:00 AM EDT Encounter for other general examination documented in this encounter Results * (ABNORMAL) Culture wound with gram stain (11/16/2024 8:00 AM EDT) Culture, Wound Klebsiella pneumoniae ssp pneumoniae(A) BOBBY 11/19/2024 10:52 AM EDT [facility] Comment: The organism value for this result has been updated. These results have been appended to the previously preliminary verified report. This is an edited result. Previous organism was Gram negative bacilli on 11/17/2024 at 1100 EDT. Culture, Wound Escherichia coli(A) BOBBY 11/19/2024 10:52 AM EDT [facility] Comment: The organism value for this result has been updated. These results have been appended to the previously preliminary verified report. This is an edited result. Previous organism was Gram negative bacilli on 11/18/2024 at 1044 EDT. Gram Stain Result No polymorphonuclear leukocytes, No epithelial cells, and No organisms noted 11/19/2024 10:52 AM EDT [facility] Swab Non-blood Collection / Unknown 11/16/2024 8:00 AM EDT 11/16/2024 12:33 PM EDT Narrative [facility] - 11/19/2024 10:52 AM EDT [...] MICROBIOLOGY - GENERA L ORDERABLES Final Result [facility] [address] [place] [address], [place] [phone] documented in this encounter Visit Diagnoses Diagnosis Encounter for other general examination documented in this encounter Care Teams Csm Consultant Relationship Specialty Start Date End Date Handy Elias MD [address] [place] [address] PCP - General Internal Medicine 01/13/18 documented as of this encounter
--- OUTSIDE RECORDS SUMMARY | 2025-02-09 19:22 | XMS_ITS | Encounter Summary ---
Author Organization [employer] Address [address] [facility] 7 [place] [address] Care Team Providers Care Mink Slicer Name Role Phone Handy Elias MD Primary Care Provider [phone]- [phone] Reason for Visit * Reason Onset Date Comments Call Back Request 06/19/2023 Encounter Details Date Type Department Care Team (Late st Contact Info) Description 06/19/2023 Telephone [facility] [address] [place] [address] Handy Elias MD [address] [place] [address] Call Back Request Social History Tobacco Use [...] Description 02/16/2025 4:00 PM EST Office Visit [facility] [address] [place] [address] Handy Elias MD [address] [place] [address] 03/01/2025 1:00 PM EST Telemedicine [facility] [address] [place] [address] Tessa Cox, MARITA [address] [place] [address] documented as of this encounter Visit Diagnoses Not on filedocumented in this encounter Care Teams Mink Slicer Relationship Specialty Start Date End Date Handy Elias MD [address] [place] [address] PCP - General Internal Medicine 11/17/12 [facility] 12/19/24 documented as of this encounter
--- OUTSIDE RECORDS SUMMARY | 2025-02-09 19:22 | XMS_ITS | Encounter Summary ---
Author Organization [facility] Address [address] [place] [address] Care Team Providers Care Epic Ambulatory Specialists Name Role Phone Handy Elias MD Primary Care Provider [phone] [phone] Encounter Details Date Type Department Care Team (Late st Contact Info) Description 12/02/2024 Lab Requisition [facility] - Main Lab [address] [facility] [place] [address] Lukas Sheppard PA [address] [place] [phone] Encounter for other general examination Social History [...] Comments MANUAL DIFFERENTIAL - SYSMEX WAM Routine 12/02/2024 [...] this encounter Results * (ABNORMAL) Manual differential (12/02/2024 4:46 AM EDT) Neutrophils % 64.0 % [facility] Lymphocytes % 19.0 % [facility] Monocytes % 14.0 % LAB HEMETOLOGY METHOD 12:12 PM [facility] Eosinophils % 2.0 % LAB HEMETOLOGY METHOD 12:12 PM [facility] Basophils % 0.0 % LAB HEMETOLOGY METHOD 12:12 PM [facility] Metamyelocytes % 1.0(H) % LAB HEMETOLOGY METHOD 12:12 PM [facility] Myelocytes % 1.0(H) % LAB HEMETOLOGY METHOD 12:12 PM [facility] Neutrophils Absolute Manual 8.90(H) 1.50 - 7.00 K/mcL LAB HEMETOLOGY METHOD 12:12 PM [facility] Lymphocytes Absolute 2.64 1.00 - 5.00 K/mcL LAB HEMETOLOGY METHOD 12:12 PM [facility] Monocytes Absolute Manual 1.95(H) 0.20 - 1.00 K/mcL LAB HEMETOLOGY METHOD 12:12 PM [facility] Eosinophils Absolute Manual 0.28 0.00 - 0.50 K/mcL LAB HEMETOLOGY METHOD 12:12 PM EDT [facility] Basophils Absolute Manual 0.00 0.00 - 0.20 K/[facility] LAB HEMETOLOGY METHOD 12:12 PM EDT [facility] Metamyelocytes Absolute Manual 0.14(H) 0.00 - 0.00 K/[facility] LAB HEMETOLOGY METHOD 12:12 PM EDT [facility] Myelocytes Absolute Manual 0.14(H) 0.00 - 0.00 K/[facility] LAB HEMETOLOGY METHOD 12:12 PM EDT [facility] Rbc Morphology Consistent with indices Consistent with indices, Normal for Alexander LAB HEMETOLOGY METHOD 12:12 PM EDT [facility] Platelet Morphology - WAM See Note(A) Normal LAB HEMETOLOGY METHOD 12:12 PM EDT [facility] Comment:PLT: Large platelets seen Blood Venous blood specimen / Unknown Venipuncture / Unknown 12/02/2024 4:46 AM EDT 12/02/2024 10:34 AM EDT Lukas BRUMFIELD LAB BLOOD ORDERABLES Final R esult [facility] [address] [place] [address], * (ABNORMAL) CBC auto differential (12/02/2024 4:46 AM EDT) WBC 13.9(H) 4.8 - 10.8 K/[facility] LAB HEMETOLOGY METHOD 12/02/2024 12:12 PM EDT [facility] RBC 3.90(L) 4.50 - 5.50 M/mcL LAB HEMETOLOGY METHOD 12/02/2024 12:12 PM [facility] Hemoglobin 11.9(L) 13.5 - 17.5 g/dL LAB HEMETOLOGY METHOD 12/02/2024 12:12 PM [facility] Hematocrit 38.9(L) 42.0 - 54.0 % LAB HEMETOLOGY METHOD 12/02/2024 12:12 PM [facility] MCV 99.2(H) 79.0 - 98.0 FL LAB HEMETOLOGY METHOD 12/02/2024 12:12 PM [facility] MCH 30.4 27.0 - 32.0 pcg LAB HEMETOLOGY METHOD 12/02/2024 12:12 PM [facility] MCHC 30.6(L) 32.0 - 37.0 g/dL LAB HEMETOLOGY METHOD 12/02/2024 12:12 PM [facility] RDW 15.2(H) 11.0 - 15.0 % LAB HEMETOLOGY METHOD 12/02/2024 12:12 PM [facility] Platelets 761(H) 130 - 400 K/mcL LAB HEMETOLOGY METHOD 12/02/2024 12:12 PM [facility] MPV 9.9 7.0 - 11.0 FL LAB HEMETOLOGY METHOD 12/02/2024 12:12 PM [facility] NRBC 0.0 <1.0 % LAB HEMETOLOGY METHOD 12/02/2024 12:12 PM [facility] NRBC Absolute 0.00 <0.10 K/mcL LAB HEMETOLOGY METHOD 12/02/2024 12:12 PM [facility] Blood Venous blood specimen / Unknown Venipuncture / Unknown 12/02/2024 4:46 AM EDT 12/02/2024 10:34 AM EDT Lukas BRUMFIELD LAB BLOOD ORDERABLES Final R esult [facility] [address] [place] [address], [place] [phone] * Magnesium (12/02/2024 4:46 AM EDT) Pathologist [facility] Magnesium 2.0 1.9 - 2.6 mg/dL LAB CHEMISTRY METHOD 12/02/2024 12:53 PM EDT [facility] Blood Venous blood specimen / Unknown Venipuncture / Unknown 12/02/2024 4:46 AM EDT 12/02/2024 10:34 AM EDT Lukas BRUMFIELD LAB BLOOD ORDERABLES Final R esult [facility] [address] [place] [address], [place] [phone] * (ABNORMAL) Comprehensive metabolic panel (12/02/2024 4:46 AM EDT) Pathologist [facility] Sodium 135 133 - 145 mmol/L LAB CHEMISTRY METHOD 12/02/2024 12:53 PM [facility] Potassium 5.0 3.5 - 5.5 mmol/L LAB CHEMISTRY METHOD 12/02/2024 12:53 PM [facility] Chloride 103 96 - 110 mmol/L LAB CHEMISTRY METHOD 12/02/2024 12:53 PM [facility] CO2 20(L) 21 - 32 mmol/L LAB CHEMISTRY METHOD 12/02/2024 12:53 PM [facility] Anion Gap 12(H) 3 - 11 LAB CHEMISTRY METHOD 12/02/2024 12:53 PM [facility] Glucose 67(L) 70 - 100 mg/dL LAB CHEMISTRY METHOD 12/02/2024 12:53 PM [facility] BUN 16 5 - 25 mg/dL LAB CHEMISTRY METHOD 12/02/2024 12:53 PM [facility] Creatinine 1.18 0.70 - 1.30 mg/dL LAB CHEMISTRY METHOD 12/02/2024 12:53 PM [facility] eGFR 68 >=60 mL/min/1. 73m2 LAB CHEMISTRY METHOD 12/02/2024 12:53 PM [facility] Comment:Calculation based on the Chronic Kidney Disease Epidemiology Collaboration (CKD-EPI) equation refit without adjustment for race. BUN/Creatinine Ratio 13.6 LAB CHEMISTRY METHOD 12/02/2024 12:53 PM [facility] Calcium 9.1 8.5 - 10.5 mg/dL LAB CHEMISTRY METHOD 12/02/2024 12:53 PM [facility] AST (SGOT) 26 10 - 42 unit/L LAB CHEMISTRY METHOD 12/02/2024 12:53 PM [facility] ALT (SGPT) 21 10 - 60 unit/L LAB CHEMISTRY METHOD 12/02/2024 12:53 PM [facility] Alkaline Phosphatase 102 42 - 121 unit/L LAB CHEMISTRY METHOD 12/02/2024 12:53 PM [facility] Total Protein 8.1(H) 6.0 - 8.0 g/dL LAB CHEMISTRY METHOD 12/02/2024 12:53 PM [facility] Albumin 2.5(L) 3.2 - 5.0 g/dL LAB CHEMISTRY METHOD 12/02/2024 12:53 PM [facility] Total Bilirubin 0.4 0.0 - 1.4 mg/dL LAB CHEMISTRY METHOD 12/02/2024 12:53 PM [facility] Blood Venous blood specimen / Unknown Venipuncture / Unknown 12/02/2024 4:46 AM EDT 12/02/2024 10:34 AM EDT Lukas BRUMFIELD LAB BLOOD ORDERABLES Final R esult [facility] [address] [place] [address], documented in this encounter Visit Diagnoses Diagnosis Encounter for other general examination documented in this encounter Care Teams Epic Ambulatory Specialists Relationship Specialty Start Date End Date Handy Elias MD [address] [place] [address] PCP - General Internal Medicine 01/13/18 documented as of this encounter
--- OUTSIDE RECORDS SUMMARY | 2025-02-09 19:22 | XMS_ITS | Encounter Summary ---
Author Organization [facility] Address [address] [place] [address] Care Team Providers Care Spindle Plumber Name Role Phone Handy Elias MD Primary Care Provider [phone] [phone] Encounter Details Date Type Department Care Team (Late st Contact Info) Description 11/16/2024 Lab Requisition [facility] - Main Lab [address] [facility] [place] [address] Sonya Real PA [address] [place] [address] Encounter for other general examination [...] Procedure Name Priority Date/Time Associated Diagnosis Comments URINALYSIS WITH REFLEX MICROSCOPIC AND CULTURE Routine 11/16/2024 3:00 PM EDT Encounter for other general examination BUTLER URINE CULTURE TUBE Routine 11/16/2024 3:00 PM EDT Encounter for other general examination URINALYSIS WITH REFLEX MICROSCOPIC AND CULTURE Routine 11/16/2024 3:00 PM EDT Encounter for other general examination documented in this encounter Results * Urinalysis with reflex microscopic and culture (11/16/2024 3:00 PM EDT) Specific [place] Urine 1.018 1.003 - 1.030 LAB URINALYSIS - AUTOMATED METHOD 11/17/2024 9:16 AM [facility] pH, Urine 6.0 5.0 - 8.0 pH LAB URINALYSIS - AUTOMATED METHOD 11/17/2024 9:16 AM [facility] Leukocytes, Urine Negative Negative LAB URINALYSIS - AUTOMATED METHOD 11/17/2024 9:16 AM [facility] Nitrite, Urine Negative Negative LAB URINALYSIS - AUTOMATED METHOD 11/17/2024 9:16 AM [facility] Protein, Urine Trace <=Trace mg/dL LAB URINALYSIS - AUTOMATED METHOD 11/17/2024 9:16 AM [facility] Glucose, Urine Negative Negative mg/dL LAB URINALYSIS - AUTOMATED METHOD 11/17/2024 9:16 AM [facility] Ketones, Urine Negative Negative mg/dL LAB URINALYSIS - AUTOMATED METHOD 11/17/2024 9:16 AM [facility] Urobilinogen, Urine 1.0 0.2 - 1.0 mg/dL LAB URINALYSIS - AUTOMATED METHOD 11/17/2024 9:16 AM [facility] Bilirubin, Urine Negative Negative LAB URINALYSIS - AUTOMATED METHOD 11/17/2024 9:16 AM [facility] Blood, Urine Negative Negative LAB URINALYSIS - AUTOMATED METHOD 11/17/2024 9:16 AM [facility] Urine Urine specimen obtained by clean catch procedure / Unknown Non-blood Collection / Unknown 11/16/2024 3:00 PM EDT 11/17/2024 7:42 AM EDT us Sonya BRUMFIELD LAB URINE ORDERABLES Final Re sult [facility] [address] [place] [address], [place] [phone] * Butler urine culture tube (11/16/2024 3:00 PM EDT) Extra Tube Hold for add-ons. 11/17/2024 9:01 AM EDT [facility] Comment:Auto resulted. Urine Urine specimen obtained by clean catch procedure / Unknown Non-blood Collection / Unknown 11/16/2024 3:00 PM EDT 11/17/2024 7:42 AM EDT us Sonya BRUMFIELD LAB URINE ORDERABLES Final Re sult Performing Organization Address [facility] Co de Phone Number [facility] [address] [place] [address], [place] [phone] documented in this encounter Visit Diagnoses Diagnosis Encounter for other general examination documented in this encounter Care Teams Spindle Plumber Relationship Specialty Start Date End Date Handy Elias MD [address] [place] [address] PCP - General Internal Medicine 01/13/18 documented as of this encounter
--- OUTSIDE RECORDS SUMMARY | 2025-02-09 19:22 | XMS_ITS | Encounter Summary ---
Author Organization [facility] [address] Address [address] [place] [address] Care Team Providers Care Ornament Stapler Name Role Phone Handy Elias MD Primary Care Provider [phone] [phone] Encounter Details Date Type Department Care Team (Late st Contact Info) Description 11/16/2024 Lab Requisition [facility] - Main Lab [address] [facility] [place] [address] Jorge Luis Razo MD [address] [place] [address] Encounter for other general examination Social History [...] Associated Diagnosis Comments COMPLETE BLOOD COUNT Routine 11/16/2024 4:57 AM EDT Encounter for other general examination MAGNESIUM Routine 11/16/2024 4:57 AM EDT Encounter for other general examination BASIC METABOLIC PANEL Routine 11/16/2024 4:57 AM EDT Encounter for other general examination documented in this encounter Results * (ABNORMAL) Magnesium (11/16/2024 4:57 AM EDT) Magnesium 1.4(L) 1.9 - 2.6 mg/dL LAB CHEMISTRY METHOD 11/16/2024 2:05 PM [facility] Blood Venous blood specimen / Unknown Venipuncture / Unknown 11/16/2024 4:57 AM EDT 11/16/2024 10:53 AM EDT Jorge Luis Razo MD LAB BLOOD ORDERABLES Final R esult [facility] [address] [place] [address], [place] [phone] * (ABNORMAL) Basic metabolic panel (11/16/2024 4:57 AM EDT) Pathologist [facility] Sodium 136 133 - 145 mmol/L LAB CHEMISTRY METHOD 11/16/2024 2:17 PM [facility] Potassium 4.8 3.5 - 5.5 mmol/L LAB CHEMISTRY METHOD 11/16/2024 2:17 PM [facility] Chloride 101 96 - 110 mmol/L LAB CHEMISTRY METHOD 11/16/2024 2:17 PM [facility] CO2 22 21 - 32 mmol/L LAB CHEMISTRY METHOD 11/16/2024 2:17 PM [facility] Anion Gap 13(H) 3 - 11 LAB CHEMISTRY METHOD 11/16/2024 2:17 PM [facility] Glucose 80 70 - 100 mg/dL LAB CHEMISTRY METHOD 11/16/2024 2:17 PM [facility] BUN 18 5 - 25 mg/dL LAB CHEMISTRY METHOD 11/16/2024 2:17 PM [facility] Creatinine 1.03 0.70 - 1.30 mg/dL LAB CHEMISTRY METHOD 11/16/2024 2:17 PM EDT [facility] eGFR 80 >=60 mL/min/1. 73m2 LAB CHEMISTRY METHOD 11/16/2024 2:17 PM EDT [facility] Comment:Calculation based on the Chronic Kidney Disease Epidemiology Collaboration (CKD-EPI) equation refit without adjustment for race. BUN/Creatinine Ratio 17.5 LAB CHEMISTRY METHOD 11/16/2024 2:17 PM EDT [facility] Calcium 8.0(L) 8.5 - 10.5 mg/dL LAB CHEMISTRY METHOD 11/16/2024 2:17 PM EDT [facility] Blood Venous blood specimen / Unknown Venipuncture / Unknown 11/16/2024 4:57 AM EDT 11/16/2024 10:53 AM EDT us Jorge Luis Razo MD LAB BLOOD ORDERABLES Final R esult [facility] [address] [place] [address], * (ABNORMAL) Complete blood count (11/16/2024 4:57 AM EDT) WBC 27.6(H) 4.8 - 10.8 K/mcL LAB HEMETOLOGY METHOD 11/16/2024 12:51 PM T [facility] RBC 3.00(L) 4.50 - 5.50 M/mcL LAB HEMETOLOGY METHOD 11/16/2024 12:51 PM EDT [facility] Hemoglobin 9.4(L) 13.5 - 17.5 g/dL LAB HEMETOLOGY METHOD 11/16/2024 12:51 PM T [facility] Hematocrit 31.7(L) 42.0 - 54.0 % LAB HEMETOLOGY METHOD 11/16/2024 12:51 PM EDT [facility] MCV 104.3(H) 79.0 - 98.0 FL LAB HEMETOLOGY METHOD 11/16/2024 12:51 PM EDT [facility] MCH 30.9 27.0 - 32.0 pcg LAB HEMETOLOGY METHOD 11/16/2024 12:51 PM EDT [facility] MCHC 29.7(L) 32.0 - 37.0 g/dL LAB HEMETOLOGY METHOD 11/16/2024 12:51 PM EDT [facility] RDW 15.2(H) 11.0 - 15.0 % LAB HEMETOLOGY METHOD 11/16/2024 12:51 PM EDT [facility] Platelets 773(H) 130 - 400 K/mcL LAB HEMETOLOGY METHOD 11/16/2024 12:51 PM EDT [facility] MPV 11.0 7.0 - 11.0 FL LAB HEMETOLOGY METHOD 11/16/2024 12:51 PM EDT [facility] NRBC 0.1 <1.0 % LAB HEMETOLOGY METHOD 11/16/2024 12:51 PM EDT [facility] NRBC Absolute 0.04 <0.10 K/mcL LAB HEMETOLOGY METHOD 11/16/2024 12:51 PM T [facility] Blood Venous blood specimen / Unknown Venipuncture / Unknown 11/16/2024 4:57 AM EDT 11/16/2024 10:53 AM EDT us Jorge Luis Razo MD LAB BLOOD ORDERABLES Final R esult [facility] [address] [place] [address], documented in this encounter Visit Diagnoses Diagnosis Encounter for other general examination documented in this encounter Care Teams Ornament Stapler Relationship Specialty Start Date End Date Handy Elias MD [address] [place] [address] PCP - General Internal Medicine 01/13/18 documented as of this encounter
--- OUTSIDE RECORDS SUMMARY | 2025-02-09 19:22 | XMS_ITS | Encounter Summary ---
Author Organization [facility] Address [address] [place] [address] Care Team Providers Care Cop Examiner Name Role Phone Handy Elias MD Primary Care Provider [phone] [phone] Encounter Details Date Type Department Care Team (Late st Contact Info) Description 12/17/2024 Lab Requisition [facility] - Main Lab [address] [facility] [place] [address] Sonya Real PA [address] [place] [address] Encounter for other general examination [...] general examination BUTLER URINE CULTURE TUBE Routine 12/16/2024 11:10 PM EDT Encounter for other general examination URINALYSIS WITH REFLEX MICROSCOPIC AND CULTURE Routine 12/16/2024 11:10 PM EDT Encounter for other general examination CULTURE URINE Routine 12/16/2024 11:10 PM EDT Encounter for other general examination documented in this encounter Results * Culture urine (12/16/2024 11:10 PM EDT) Pathologist [facility] Culture, Urine No growth 12/18/2024 8:[address] [facility] Urine Urine specimen obtained by clean catch procedure / Unknown 12/16/2024 11:10 PM EDT 12/17/2024 6:51 AM EDT Sonya BRUMFIELD LAB MICROBIOLOGY - GENERAL OR DERABLES Final Result Performing Organization Address City/[facility]/ZIP Co de Phone Number [facility] [address] [place] [address], [place] [phone] * Butler urine culture tube (12/16/2024 11:10 PM EDT) [facility] Extra Tube Hold for add-ons. 12/17/2024 8:[address] [facility] Comment:Auto resulted. Urine Urine specimen obtained by clean catch procedure / Unknown 12/16/2024 11:10 PM EDT 12/17/2024 6:35 AM EDT Sonya BRUMFIELD LAB URINE ORDERABLES Final Re sult [facility] [address] [place] [address], [place] [phone] * (ABNORMAL) Urinalysis with reflex microscopic and culture (12/16/2024 11:10 PM EDT) [facility] Specific [place] Urine 1.015 1.003 - 1.030 LAB URINALYSIS - AUTOMATED METHOD 12/17/2024 6:[address] [facility] pH, Urine 6.0 5.0 - 8.0 pH LAB URINALYSIS - AUTOMATED METHOD 12/17/2024 6:[address] [facility] Leukocytes, Urine Trace(A) Negative LAB URINALYSIS - AUTOMATED METHOD 12/17/2024 6:52 AM [facility] Nitrite, Urine Negative Negative LAB URINALYSIS - AUTOMATED METHOD 12/17/2024 6:52 AM [facility] Protein, Urine Trace <=Trace mg/dL LAB URINALYSIS - AUTOMATED METHOD 12/17/2024 6:52 AM [facility] Glucose, Urine Negative Negative mg/dL LAB URINALYSIS - AUTOMATED METHOD 12/17/2024 6:52 AM [facility] Ketones, Urine Trace(A) Negative mg/dL LAB URINALYSIS - AUTOMATED METHOD 12/17/2024 6:52 AM [facility] Urobilinogen, Urine 0.2 0.2 - 1.0 mg/dL LAB URINALYSIS - AUTOMATED METHOD 12/17/2024 6:52 AM [facility] Bilirubin, Urine Negative Negative LAB URINALYSIS - AUTOMATED METHOD 12/17/2024 6:52 AM [facility] Blood, Urine Negative Negative LAB URINALYSIS - AUTOMATED METHOD 12/17/2024 6:52 AM [facility] RBC, Urine 3.7 0 - 4 /HPF LAB URINALYSIS - AUTOMATED METHOD 12/17/2024 6:52 AM [facility] WBC, Urine 1.5 0 - 4 /HPF LAB URINALYSIS - AUTOMATED METHOD 12/17/2024 6:52 AM [facility] Squamous Epithelial, Urine 17 0 - 60 /LPF LAB URINALYSIS - AUTOMATED METHOD 12/17/2024 6:52 AM [facility] Bacteria, Urine Negative Negative /HPF LAB URINALYSIS - AUTOMATED METHOD 12/17/2024 6:52 AM [facility] Hyaline Casts, Urine 4.4(H) 0 - 3 /LPF LAB URINALYSIS - AUTOMATED METHOD 12/17/2024 6:[address] [facility] Urine Urine specimen obtained by clean catch procedure / Unknown 12/16/2024 11:10 PM EDT 12/17/2024 6:35 AM EDT us Sonya BRUMFIELD LAB URINE ORDERABLES Final Re sult [facility] [address] [place] [address], documented in this encounter Visit Diagnoses Diagnosis Encounter for other general examination documented in this encounter Care Teams Cop Examiner Relationship Specialty Start Date End Date Handy Elias MD [address] [place] [address] PCP - General Internal Medicine 01/13/18 documented as of this encounter
--- OUTSIDE RECORDS SUMMARY | 2025-02-09 19:22 | XMS_ITS | Encounter Summary ---
Author Organization [facility] Address [address] [place] [phone] Phone Care Team Providers Care Accounting Bookkeeper Name Role Phone Handy Elias MD Primary Care Pr ovider Encounter Details Date Type Department Care Team (Late st Contact Info) Description 10/18/2022 Procedure Pass [facility]PT [address] [place] [address] Social History Tobacco Use Types Packs/Day Years [...] on filedocumented in this encounter Care Teams Accounting Bookkeeper Relationship Specialty Start Date End Date Handy Elias MD PCP - General Internal Medicine 08/11/20 documented as of this encounter Additional Source Comments The information contained in this document represents components of the legal health record. It is not the complete legal health record.[facility]
--- OUTSIDE RECORDS SUMMARY | 2025-02-09 19:22 | XMS_ITS | Encounter Summary ---
Author Organization [employer] Address [address] [place] [address] [address] [place] [address] Care Team Providers Care Class A Regional Drivers Name Role Phone Handy Elias MD Primary Care Provider [phone]- [phone] Reason for Visit * Reason Onset Date Comments Med Refill 07/30/2023 Encounter Details Date Type Department Care Team (Late st Contact Info) Description 07/30/2023 Telephone [facility] [address] [place], [place] [phone] Handy Elias MD [address] [place], [place] [phone] Med Refill Social History Tobacco Use Types [...] immediate release tablet To be sent to: [facility]/pharmacy #[id number] - [place] LEWIS - [address] [facility] [address] [place] [address] documented in this encounter Plan of Treatment Upcoming Encounters Date Type Department Care Team (Late st Contact Info) Description 02/16/2025 4:00 PM EST Office Visit [facility] [address] [place] [address] aHndy Elias MD [address] [place] [address] 03/01/2025 1:00 PM EST Telemedicine [facility] [address] [place] [address] Tessa Cox, MARITA [address] [place] [address] documented as of this encounter Visit Diagnoses Not on filedocumented in this encounter Care Teams Class A Regional Drivers Relationship Specialty Start Date End Date Handy Elias MD [address] [place] [address] PCP - General Internal Medicine 11/17/12 [facility] 12/19/24 documented as of this encounter
--- OUTSIDE RECORDS SUMMARY | 2025-02-09 19:22 | XMS_ITS | Encounter Summary ---
Author Organization [facility] Address [address] [place] [id number] Phone Care Team Providers Care Tire Layer Name Role Phone Handy Elias MD Primary Care Pr ovider Reason for Referral * Physical Therapy (Routine) - Closed Specialty Diagnoses / Procedures Referred By Contnanci weaver Referred To Contact Physical Therapy Diagnoses Encounter for rehabilitation Possible [employer] Procedures Evaluate & Treat Christie Carcamo NP Phone: tel: fax: [address] [address] Phone: tel: Referral ID Status Reason Start Date Expiration Date Visits Re quested Visits Authorized [id number] Closed 09/07/2020 02/24/2021 10 10 Encounter Details Date Type Department Care Team (Latest Contact Info) Description 08/11/2020 Transcribe Orders [facility] [address] [place] [phone] Christie Carcamo NP [address] [place] [id number] Encounter for rehabilitation (Primary Dx) Social History [...] Associated Diagnosis Comments AMB REFERRAL TO [facility] PHYSICAL THERAPY Routine 09/19/2020 6:13 PM EDT Encounter for rehabilitation documented in this encounter Results * Ambulatory referral to [facility] Physical Therapy (09/19/2020 6:13 PM EDT) Other us Christie Carcamo [employer] AMB [facility] REFERRALS Final Result documented in this encounter Visit Diagnoses Diagnosis Encounter for rehabilitation- Primary documented in this encounter Care Teams Tire Layer Relationship Specialty Start Date End Date Handy Elias MD PCP - General Internal Medicine 08/11/20 documented as of this encounter Additional Source Comments The information contained in this document represents components of the legal health record. It is not the complete legal health record.[facility]
--- OUTSIDE RECORDS SUMMARY | 2025-02-09 19:22 | XMS_ITS | Data Portability ---
Author Organization [place] [facility], Allergy Address [address] [place] [phone] Assessment Encounter Date Assessment Date Assessment LastModified by Organization Details LastModified Time 07/07/2024 07/07/2024 Visit With: YOANNA Robles Use of Antihistamines: No If yes: Vial Test Change in medications: No If yes Increase in asthma symptoms If yes, inhaler use: Reaction to last injections: No If yes: Allergy Symptoms: Other: Missed: 1month Dose Decreased Aware of Vial Test Notes: [email or web address] Not available 07/07/2024 15:13:08 08/14/2024 08/14/2024 Visit With: Mae Blackwell Use of Antihistamines: No If yes: Vial Test Change in medications: No If yes Increase in asthma symptoms If yes, inhaler use: Reaction to last injections: No If yes: Allergy Symptoms: Other: Missed: Dose Aware of Vial Test Aware: Notes: [email or web address] Not available 08/14/2024 14:02:49 09/25/2024 09/25/2024 Visit With: Ángel Kelly RN Use of Antihistamines: No If yes: Vial Test Change in medications: No If yes Increase in asthma symptoms No If yes, inhaler use: Reaction to last injections: If yes: Allergy Symptoms: None Other: Missed: 4 or more weeks Dose Aware of Vial Test Aware: Notes:states will return in 3 weeks [email or web address] Not available 09/25/2024 14:57:52 10/16/2024 10/16/2024 Visit With: YOANNA Robles Use of Antihistamines: No If yes: Vial Test Change in medications: No If yes Increase in asthma symptoms If yes, inhaler use: Reaction to last injections: No If yes: Allergy Symptoms: Other: Missed: Dose Aware of Vial Test Aware: Notes: [email or web address] Not available 10/16/2024 15:16:16 10/30/2024 10/30/2024 64-year-old male presents for allergy follow-up. He is doing well on immunotherapy without adverse reactions. Epi-pen prescription is up to date. Patient will continue current therapy for another 6 months and at that time we may discuss discontinuing immunotherapy. Patient with persistent chronic postnasal drip and productive cough. Recently underwent bronchoscopy and was recommended to have an endoscopy for concern about laryngeal ulcer. Fiberoptic laryngoscopy today demonstrated postnasal drip but was otherwise benign without mass, lesion, or ulcer. Patient has been having recurrent episodes of acid reflux and has longstanding history of GERD. I recommended that he follow-up with his performance improvement specialist for upper endoscopy and management of PPI therapy. Patient agrees with the plan all questions were answered. [email or web address] Not available 10/30/2024 14:52:33 Plan of Treatment Reminders Order Date Submit Date Provider Last Modified By Organization Details Last Modified Time Details Appointments None record ed. Lab None record ed. Referral None record ed. Procedures None record ed. Surgeries None record ed. Imaging None record ed. Medication Orders None record ed. Patient TargetsNo targets recorded. Patient InstructionsNo instructions recorded. Reason for Referral None Reported. Problems Name Problem SNOMED Code Status Onset Date Resolution Date Notes Provider Name and Address Organization Details Recorded Time Acute pharyngit is 889895709 Active 2013 Pharyngiti s, acute; [facility] Risk: low risk [facility] Treatment: new problem (to examiner): additional workup planned No te: Date Diagnosed: 12/16/2013 4:30 PM (462) Not Available [facility] 4 02:47:57 Cough [id number] Active 2016 Cough; Note: Date Diagnosed: 03/23/2016 4:25 PM (R05) Not Available [facility] 4 02:47:53 Nasal congestio n 03208219 Active 2016 Nasal congestion ; Note: Date Diagnosed: 03/23/2016 4:25 PM (R09.81) Not Available [facility] 4 02:47:57 Snoring 62769491 Active 2016 Snoring; Note: Date Diagnosed: 08/23/2016 4:44 PM (R06.83) Not Available [facility] 4 02:47:57 Hypertrop hy of tonsils 46111393 Active 2016 Hypertroph y of tonsils; Note: Date Diagnosed: 08/23/2016 4:50 PM (J35.1) Not Available [facility] 4 02:47:54 Simple obesity 710493800 Active 2016 Other obesity due to excess calories; Note: Date Diagnosed: 08/23/2016 4:44 PM (E66.09) Not Available [facility] 4 02:47:56 Obstructi ve sleep apnea syndrome 37586277 Active 2016 Obstructiv e sleep apnea (adult) (pediatric ); Note: Date Diagnosed: 08/23/2016 4:44 PM (G47.33) Not Available [facility] 4 02:47:53 Acute sinusitis 95807037 Active 2016 Acute sinusitis, unspecifie d; Note: Date Diagnosed: 02/07/2017 3:59 PM (J01.90) Not Available [facility] 4 02:47:58 Posterior rhinorrhe a 87021214 Active 2016 Postnasal drip; Note: Date Diagnosed: 02/07/2017 3:59 PM (R09.82) Not Available [facility] 4 02:47:58 Abnormal auditory perceptio n 25740883 Active 2017 Other abnormal auditory perception s, bilateral; Note: Date Diagnosed: 09/02/2017 4:53 PM (H93.293) Not Available [facility] 4 02:47:53 Sensorine ural hearing loss of bilateral ears 021190536 Active 2017 Sensorineu ral hearing loss, bilateral; Note: Date Diagnosed: 09/02/2017 5:33 PM (H90.3) Not Available [facility] 4 02:47:51 Acute sialoaden itis 826548854 Active 2021 Acute sialoadeni tis; Note: Date Diagnosed: 01/23/2022 3:21 PM (K11.21) Not Available [facility] 4 02:47:55 Allergic rhinitis caused by pollen 25051917 Active 2022 Allergic rhinitis due to pollen; Note: Date Diagnosed: 12/18/2022 3:52 PM (J30.1) Allergic rhinitis due to pollen; Note: Date Diagnosed: 04/19/2021 1:28 PM (J30.1) ; Start Date : 04/19/2021 Not Available [facility] 4 02:47:55 Allergic rhinitis 07752108 Active 2023 Allergic rhinitis: Due to other [...] Diagnosed: 12/08/2021 2:10 PM (477 Not Available [facility] 4 01:08:11 Perennial allergic rhinitis 643498354 Active 2023 YOANNA SAINZ [address], [facility] [place], [address] , [facility] - [facility] 4 14:51:26 Chronic sinusitis 40867206 Active 2024 ESSIE PLEITEZ PA-C [address], [facility] [place], [address] , [facility] - [facility] [place] [facility] 5 16:05:25 Gastroeso phageal reflux disease without esophagit is 190218852 Active 2024 ESSIE PLEITEZ PA-C [address], [facility] [place], [address] , [place] - [facility] 14:28:00 Problem Notes None recorded. Procedures Surgical History Date Name Laterality Status Provider Name and Address Organization Details Recorded Time 10/31/19 25 FOL_DP completed ESSIE PLEITEZ PA-C [address], [place], [address], [facility] - [facility] [place] [facility] 10/30/2024 14:17:54 10/17/19 25 Allergy Immunotherapy Injections completed YOANNA ABEBE [address], [place], [address], [facility] - [facility] [place] [facility] 10/16/2024 15:16:05 09/26/19 25 Allergy Immunotherapy Injections completed KAROLINE KELLY RN [address], [place], [address], [facility] - [facility] 09/25/2024 14:57:11 08/15/19 25 Allergy Immunotherapy Injections completed YOANNA SAINZ [address], [place], [address], [facility] - [facility] 08/14/2024 14:03:05 07/08/19 25 Allergy Immunotherapy Injections completed GUY KORZEC, RMA [address], [address], [place] [facility] 07/07/2024 15:12:46 05/13/19 25 Allergy Immunotherapy Injections completed YOANNA SAINZ [address] [place] [address], [phone], [place] - [facility] 05/12/2024 14:44:23 04/22/19 25 Allergy Immunotherapy Injections completed YOANNA SAINZ [address] [facility] [place], [address], [place] [facility] 04/22/2024 13:45:00 04/15/19 25 Allergy Immunotherapy Injections completed YOANNA SAINZ [address] [facility] [place],[address] [place] [address], [address], [place] [facility] 04/15/2024 14:55:54 04/15/19 25 NasalEndoscopy_DP completed YUNIEL DONALD MD [address] [facility],[address] [place] [address], [address], [facility] - [facility] [place] 04/15/2024 14:43:26 04/09/19 25 Allergy Immunotherapy Injections completed GUY NUNN RMA [address] [facility] [place],[address] [place] [address], [address], [facility] - [facility] [place] 04/09/2024 15:24:18 04/03/19 25 Allergy Immunotherapy Injections completed YOANNA SAINZ [address] [facility] [place],[address] [place] [address], [address], [facility] - [facility] [place] 04/03/2024 13:31:44 03/27/19 25 Allergy Immunotherapy Injections completed KAROLINE KELLY RN [address] [facility] [place],[address] [place] [address], [address], [place] [facility] 03/27/2024 13:20:20 03/13/19 25 Allergy Immunotherapy Injections completed GUY NUNN RMA [address] [facility] [place], [address], [place] [facility] 03/13/2024 14:51:01 02/26/19 25 Allergy Immunotherapy Injections completed GUY KORZEC, RMA [address], [place], [address], [facility] - [facility] [place] 02/27/2024 16:07:25 02/26/19 25 JMSNasal/Sinus Endoscopy completed ESSIE PLEITEZ PA-C [address] Formerly named [facility], [place], [address], [facility] - [facility] 02/27/2024 16:37:51 02/17/20 24 Allergy Immunotherapy Injections completed KAROLINE KELLY RN [address], [place], [address], [facility] - [facility] [place] 02/17/2024 14:48:11 10/16/19 24 Allergy Immunotherapy Injections completed YOANNA SAINZ [address], [place], [address], [facility] - [facility] 10/16/2023 16:51:03 09/25/19 24 Allergy Immunotherapy Injections completed KAROLINE KELLY RN [address] [place] [address], [address], [facility] - [facility] 09/25/2023 11:18:43 08/13/19 24 Allergy Immunotherapy Injections completed YOANNA SAINZ [address] [place] [address], [address], [facility] - [facility] 08/13/2023 15:02:29 07/18/19 24 Allergy Immunotherapy Injections completed YOANNA SAINZ [address] [facility] [place],[address] [place] [address], [address], [facility] - [facility] 07/18/2023 14:51:59 Imaging Results None recorded. Procedure Notes None recorded. Medical Equipment None Reported. Allergies Allergen ID Allergen Name Allergen Category Reaction Reaction Severity Criticality Documentation Date Start Date Code Code System Note Provider Name and Address Organization Details Recorded Time 922571 pineapple allergeni c extract food,medi cation other Not available Not available 02/08/20252020 54762 5 RxNorm Not Available [employer] - External [employer] - prod 11:13:32 904160 mite extract Not available Not available Not available Not available 02/08/20252023 37640 3 RxNorm Not Available [employer] - External Data Service - prod 11:13:39 603796 mold extract environme nt Not available Not available Not available 02/08/20252021 50255 8 RxNorm Not Available [employer] - prod 11:13:39 485091 pineapple extract food Not available Not available Not available 02/08/20252020 81158 74 RxNorm Other react ion(s ): Other (see comme nts) Not Available [employer] - External Data Service - prod 11:14:18 363757 honey bee venom environme nt Not available Not available Not available 02/08/20252020 65358 7 RxNorm Other react ion(s ): Other (see comme nts) Not Available [employer] - prod 11:14:18 Medications Name Sig Start Date Stop Date [...] by mouth 02/26 completed Medicati on ID: [id number] D uration Value: 12 Brand Name: predniso ne Send Method: E-Prescr ibed Sub s Allowed: subs OK Speci al Instruct ion: Predniso ne 4 pills x3 days 3 pills x 3 days 2 pills x3 pills 1 pill for 3 pills Me dication GenericN sherwin: predniso ne Not Available Not Available Not Available doxycycli ne hyclate 100 mg capsule TAKE 1 CAPSULE ORALLY 2 TIMES A DAY FOR 21 DAYS 10/30 completed Not Available Not Available Not Available ketoconaz ole 2 % shampoo PLEASE SEE ATTACHED FOR DETAILED DIRECTIO NS 02/26 completed Not Available Not Available Not Available clindamyc in HCl 300 mg capsule 1 capsule by mouth 02/26 completed Medicati on ID: [id number] Dur ation Value: 10 Prescri bed By Name: Rosie Gao rd nd Name: clindamy taz HCl Send Method: E-Prescr ibed Sub s Allowed: subs OK [facility] clindamy taz HCl Not Available [...] completed Not Available Not Available Not Available ibuprofen 800 mg tablet TAKE ONE TABLET EVERY 8 HOURS NEEDED FOR PAIN active Not Available Not Available No t Available tizanidin e 4 mg tablet 02/26 completed Medicati on ID: [id number] D uration Value: 30 Brand Name: tizanidi [...] prednison e 20 mg tablet TAKE 2 TABLETS (40 MG) BY MOUTH ONCE PER DAY FOR 5 DAYS. 10/30 completed Not Available Not Available Not Available alendrona te 70 mg tablet TAKE 1 TABLET BY MOUTH ONCE WEEKLY. active Not Available Not Available No t [...] Available amlodipin e 5 mg tablet TAKE 2 TABLETS (10 MG) BY MOUTH ONCE PER DAY. DAILY 10/30 completed Not Available Not Available Not Available ciproflox acin 500 mg tablet TAKE 1 TABLET (500 MG) BY MOUTH 2 TIMES DAILY FOR 10 DAYS. 02/26 completed Not Available Not Available Not Available sulfameth oxazole 800 mg-trimet hoprim 160 mg tablet TAKE 1 TABLET BY MOUTH EVERY 12 HOURS FOR 14 DAYS 10/30 completed Not Available Not Available Not Available omeprazol e 40 mg capsule,d elayed [...] BY MOUTH TWICE A DAY X14 DAYS 10/30 completed Not Available Not Available Not Available tramadol 50 mg tablet TAKE 1 TABLET (50 MG TOTAL) BY MOUTH EVERY 6 HOURS NEEDED FOR PAIN 02/26 completed Not Available Not Available Not Available acetamino phen 500 mg tablet TAKE ONE TABLET EVERY 6 HOURS NEEDED FOR PAIN active [...] Not Available Not Available amoxicill in 875 mg tablet TAKE 1 TABLET EVERY 12 HOURS UNTIL FINISHED 10/30 completed Not Available Not Available Not Available citalopra m 20 mg tablet 03/16 completed Medicati on ID: [id number] D uration Value: 30 Reason: () Brand Name: citalopr am Send Method: E-Prescr ibed Sub s Allowed: subs OK Speci al Instruct ion: TAKE 1 TABLET BY MOUTH EVERY DAY Medi cationGe nericNam e: citalopr am Not Available Not Available Not Available Anafranil 50 mg capsule 02/26 completed Medicati on ID: [id number] B rand Name: Anafrani l Send Method: E-Prescr ibed Sub s Allowed: subs OK Medic ationGen ericName : Anafrani l Not Available Not Available Not Available amlodipin e 10 mg tablet TAKE 1 TABLET BY MOUTH DAILY active Not Available Not Available No t Available fluvoxami ne 100 mg tablet TAKE [...] Not Available Not Available No t Available neomycin- polymyxin -dexameth 3.5 mg/mL-10, 000 unit/mL-0 .1% eye drops USE 1 DROP TWICE A DAY FOR 7 DAYS 10/30 completed Not Available Not Available Not Available buspirone 10 mg tablet TAKE 1 TABLET BY MOUTH TWICE A DAY 02/26 completed Not Available Not Available Not Available Advair Diskus 250 mcg-50 mcg/dose powder for inhalatio n INHALE 1 PUFF EVERY 12 HOURS 02/26 completed Not Available Not Available Not Available fluvastat in 20 mg capsule TAKE 1 CAPSULE BY MOUTH EVERY DAY active Not Available Not Available No t Available Calcium-6 00 600 mg (as calcium carbonate 1,500 mg) tablet 2019 active Medicati on ID: [id number] B rand Name: Calcium 600 Send Method: [...] HOURS NEEDED FOR COUGH FOR 10 DAYS active Not Available Not Available No t Available furosemid e 20 mg tablet 02/26 [...] Not Available Not Available No t Available epinephri ne 0.3 mg/0.3 mL injection , auto-inje ctor PLEASE SEE ATTACHED FOR DETAILED DIRECTIO NS active Not Available Not Available No t Available Nasonex 50 mcg/actua tion [place] 2 spray into both nostrils 02/26 completed Medicati on ID: [id number] D uration Value: 30 Prescri bed By [...] BY MOUTH AT BEDTIME NEEDED FOR SLEEP active Not Available Not Available No t Available methylpre dnisolone 4 mg tablets in a dose pack TAKE 6 TABLETS ON DAY 1 DIRECTED ON PACKAGE AND DECREASE BY 1 TAB EACH DAY FOR A TOTAL OF 6 DAYS 02/26 completed Not Available Not Available Not Available labetalol 100 mg tablet 03/16 completed Medicati on ID: [id number] D uration Value: 30 Reason: () Brand Name: labetalo l Send Method: E-Prescr ibed Sub s Allowed: subs OK Speci al Instruct ion: TAKE 1 TABLET BY MOUTH TWICE A DAY Medi cationGe nericNam e: labetalo l Not Available Not Available Not Available albuterol sulfate HFA 90 mcg/actua tion aerosol inhaler INHALE 2 PUFFS EVERY 6 HOURS NEEDED FOR WHEEZING FOR 30 DAYS active Not Available Not Available No t Available propranol ol 20 mg tablet TAKE 1 TABLET BY MOUTH EVERY DAY active Not Available Not Available No t Available fluoxetin e 20 mg capsule TAKE 1 CAPSULE BY MOUTH EVERY DAY active Not Available Not Available No t Available fluticaso ne propionat e 50 mcg/actua tion nasal spray,marla pension 2 puff 2021 active Medicati on ID: [id number] D uration Value: 30 Prescri bed By [...] bromide 21 mcg (0.03 %) nasal spray [place] 2 spray into both nostrils three times a day 02/26 completed Medicati on ID: [id number] D uration Value: 30 Brand Name: ipratrop ium bromide Send Method: E-Prescr ibed Sub s Allowed: subs OK Speci al Instruct ion: 2 sprays in each nostril 1-3 times a day Medi cationGe nericNam e: ipratrop ium bromide Not Available Not Available Not Available finasteri de 5 mg tablet 03/16 completed Medicati on ID: [id number] D uration Value: 30 Reason: () Brand [...] clavulana te 125 mg tablet TAKE 1 TAB ORALLY 2 TIMES A DAY FOR 14 DAYS 10/30 completed Not Available Not Available Not Available oxycodone 5 mg tablet TAKE 1 TABLET (5 MG) BY MOUTH EVERY 4 (FOUR) HOURS IF NEEDED FOR SEVERE PAIN FOR UP TO 28 DAYS. active Not Available Not Available No t Available Augmentin XR 1,000 mg-62.5 mg tablet,ex tended release 2 tablet by mouth 02/26 completed Medicati on ID: [id number] D uration Value: 7 Prescri bed By Name: Janeen Svetlana, PA-C Bra nd Name: Augmenti n XR Send Method: E-Prescr ibed Sub s Allowed: subs OK Medic ationGen ericName : Augmenti n XR Not Available Not Available Not Available ezetimibe 10 mg tablet TAKE 1 TABLET BY MOUTH EVERY DAY IN THE EVENING 02/26 completed Not Available Not Available Not Available Vitamin D3 25 mcg (1,000 unit) tablet 10/30 completed Medicati on ID: [id number] Dur ation Value: 30 Brand Name: Vitamin D3 Send Method: E-Prescr ibed Sub s Allowed: subs OK Speci al Instruct ion: TAKE 1 TABLET BY MOUTH EVERY DAY Medi cationGe nericNam e: Vitamin D3 Not Available Not Available Not Available guaifenes in 400 mg tablet 1 tablet by mouth 02/26 completed Medicati on ID: [id number] D uration Value: 10 Prescri bed By Name: DAYANNA Liang nd Name: guaifene sin Send Method: E-Prescr ibed Sub s Allowed: subs OK Medic ationGen ericName : guaifene sin Not Available Not Available Not Available oxymetazo line 0.05 % nasal spray 03/16 completed Medicati on ID: [id number] P rescribe d By Name: DAYANNA Liang [...] extended release 10/24 completed Medicati on ID: [id number] B rand Name: bupropio n HCl Send Method: E-Prescr ibed Sub s Allowed: subs OK Speci al Instruct ion: TAKE 1 TABLET BY MOUTH EVERY MORNING Medicati onGeneri cName: bupropio n HCl Not Available Not Available Not Available Fosamax Plus D 70 mg-2,800 unit tablet 02/26 completed Medicati on ID: [id number] B rand Name: Fosamax Plus D Send Method: E-Prescr ibed Sub s Allowed: subs OK Medic ationGen ericName : Fosamax Plus D Not Available Not Available Not Available zolpidem ER 6.25 mg tablet,ex tended release,m ultiphase TAKE ONE TABLET BY MOUTH AT BEDTIME NEEDED FOR SLEEP, DO NOT BREAK, CRUSH, DISSOLVE OR CHEW 10/30 completed Not Available Not Available Not Available BD Integra Syringe 3 mL 25 gauge x 1 USE 1 SYRINGE BY INTRAMUS CULAR ROUTE ONCE A MONTH FOR VITMAIN B12 INJECTIO NS 02/26 completed Not Available Not Available Not Available CoQ-10 30 mg capsule 10/24 completed Medicati on ID: [id number] B rand Name: CoQ-10 S end Method: E-Prescr ibed Sub s Allowed: subs OK Medic ationGen ericName : CoQ-10 Not Available Not Available Not Available desvenlaf axine succinate ER 50 mg tablet,ex tended release 24 hr TAKE 1 TABLET BY MOUTH EVERY DAY active Not Available Not Available No t Available cholecalc iferol (vitamin D3) 50 mcg (2,000 unit) capsule TAKE 2 CAPSULES BY MOUTH EVERY DAY 10/30 completed Not Available Not Available Not Available Zyrtec 10 mg capsule 2013 active Medicati on ID: [id number] Bra nd Name: Zyrtec S end Method: E-Prescr ibed Sub s Allowed: subs OK Speci al Instruct ion: take 1 tablet by mouth everyday Medicat ionGener icName: Zyrtec Not Available Not Available Not Available B12 09/13 completed Medicati on ID: [id number] B rand Name: b12 Send Method: E-Prescr ibed Sub s Allowed: subs OK Medic ationGen ericName : b12 Not Available Not Available Not Available Dulera 200 mcg-5 mcg/actua tion HFA aerosol inhaler 2 puff 02/26 completed Medicati on ID: [id number] D uration Value: 90 Brand Name: Dulera [...] TAKE 1 TABLET BY MOUTH EVERY DAY 10/30 completed Not Available Not Available Not Available Bydureon BCise 2 mg/0.85 mL subcutane [...] Diagnosis SNOMED-CT Code Diagnosis ICD10 Code Diagnosis IMO Codes Diagnosis Note [id number] YOANNA SAINZ [facility] [address] [place] [address] 07/18/2023 14:48:19 07/18/2023 15:28:24 Perennial allergic rhinitis [id number] J30.89 1683 SHAAN NORMAN PA-C [facility] [address] [address] 07/23/2023 13:05:54 07/23/2023 13:46:22 Allergic rhinitis 59312722 J30.9 Nasal congestion 9223313 0 R09.81 Posterior rhinorrhea 758 21358 R09.82 [id number] YOANNA SAINZ [facility] [address] [place] [address] 08/13/2023 14:55:05 08/13/2023 15:27:43 Perennial allergic rhinitis 927098111 J30.89 [id number] KAROLINE KELLY RN Allergy [address] [place] [address] 09/25/2023 10:48:16 09/25/2023 11:19:33 Perennial allergic rhinitis 999395045 J30.89 [id number] YOANNA SAINZ Allergy [address] [facility] [place] [address] 10/16/2023 15:40:04 10/16/2023 17:27:25 Perennial allergic rhinitis 717124433 J30.89 [id number] KAROLINE KELLY RN Allergy [address] [facility] [place] [address] 02/17/2024 13:50:57 02/17/2024 14:49:34 Perennial allergic rhinitis 931289749 J30.89 [id number] ESSIE PLEITEZ PA-C [facility] [address] [facility] [place] [address] 02/27/2024 15:21:49 02/27/2024 16:04:55 Chronic sinusitis 72997935 J32.9 Perennial allergic rhinitis 504575671 J30.89 [id number] [facility] Allergy [address] [facility] [place] [address] 02/27/2024 16:06:49 02/27/2024 16:07:58 Perennial allergic rhinitis 829087232 J30.89 [id number] [facility] Allergy [address] [facility] [place] [address] 03/13/2024 14:34:16 03/13/2024 14:51:30 Perennial allergic rhinitis [id number] J30.89 [id number] ELYSSA BLACKWELL [facility] Allergy [address] [place] [address],[place] [address] [place] [address] 03/27/2024 13:00:24 03/27/2024 13:21:07 Perennial allergic rhinitis [id number] J30.89 [id number] [facility], [facility] Allergy 100 [facility],[place] [address] [address] [place] [address] 04/03/2024 12:51:55 04/03/2024 13:32:07 Perennial allergic rhinitis [id number] J30.89 [id number] [facility], [facility] Allergy 100 [facility],[place] [address] [place] [address] 04/09/2024 14:46:04 04/09/2024 15:25:13 Perennial allergic rhinitis [id number] J30.89 [id number] YUNIEL DONALD MD ENTS of [facility] - [place] [address] [place] [address] 04/15/2024 13:59:30 04/15/2024 14:47:16 Allergic rhinitis [id number] J30.9 [id number] ELYSSA BLACKWELL, [facility] Allergy [address] [place] [address],[place] [address] [place] [address] 04/15/2024 14:54:56 04/15/2024 14:56:12 Perennial allergic rhinitis [id number] J30.89 [id number] ELYSSA BLACKWELL [facility] Allergy [address] [place] [address], it[address] [place] [address] 04/22/2024 13:22:05 04/22/2024 14:29:58 Perennial allergic rhinitis [id number] J30.89 [id number] KAROLINE KELLY RN Allergy [address] [place], [place] [address]e [address] [place] [address] 05/12/2024 14:43:08 05/12/2024 14:45:26 Perennial allergic rhinitis [id number] J30.89 [id number] [facility] Allergy [address] [place], [place] [address]e [address] [place] [address] 07/07/2024 14:56:36 07/07/2024 15:15:32 Perennial allergic rhinitis [id number] J30.89 [id number] ELYSSA BLACKWELL [facility] Allergy [address] [place] [address],[facility] [address] [place] [address] 08/14/2024 13:53:02 08/14/2024 14:03:20 Perennial allergic rhinitis [id number] J30.89 [id number] KAROLINE KELLY RN Allergy [address] [place] [address], it[address] [place] [address] 09/25/2024 14:15:54 09/25/2024 14:59:18 Perennial allergic rhinitis [id number] J30.89 [id number] [facility] Allergy [address] [place] [address], [address] [place] [address] 10/16/2024 13:43:14 10/16/2024 15:16:38 Perennial allergic rhinitis [id number] J30.89 [id number] ESSIE PLEITEZ PA-C ENTS of [facility] 100 [place] [address] 10/30/2024 13:20:31 10/30/2024 14:08:32 Perennial allergic rhinitis [id number] J30.89 Posterior rhinorrhea 758 63222 R09.82 Gastroesop hageal reflux disease without esophagitis [id number] K21.9 [id number] Health Concerns Section Related Observation LastModified by Organization Detai ls LastModified Time None Recorded Concern Status LastModified by Organization Details LastModified Time None Recorded Advance Directives Directive None Recorded Payers Insurance Date Sequence Insurance Name Policy Number Policy Aranda Covered Member ID Aranda Member ID Guarantor Name 10/30/2024 2 [place] [id number] Henri Bal Srinivas [id number] Henri Espino 10/30/2024 1 [place] [employer] Henri Bal Srinivas [id number] Henri Espino Notes Date Note Type Note Provider Name and Address Organization Details Recorded Time 10/30/2024 text/html ROS as noted in the HPI 64-year-old male presents for allergy follow-up. He initiated subcutaneous immunotherapy in September 2020. Due to a prolonged sinus and lung infection from September until January 2024, he missed about 4 months of immunotherapy. He has since restarted and has been on monthly injections for about 9 months. Allergy symptoms are overall improved. He continues to have PND and productive cough. He is followed by Dr. 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 More recently underwent bronchoscopy last month and it was recommended to see our office for laryngeal ulcer which was noted at the time of his bronchoscopy. Longstanding history of GERD and was on Omeprazole for 15 years prior to stopping for 4 years. Recently restarted Omeprazole a few weeks ago as he was having acid reflux symptoms. Has upcoming colonoscopy with GI. Denies dysphagia, odynophagia, hemoptysis, and voice changes. ROSANNA SANDY MD 100 [facility],[place] [address], [place], [address], [facility] - [facility] 11/01/2024 12:13:08
--- OUTSIDE RECORDS SUMMARY | 2025-02-09 19:22 | XMS_ITS | Encounter Summary ---
Author Organization [employer] Address 75 [facility] 7 [place] [address] Care Team Providers Care Automation Machine Builder Name Role Phone Handy Elias MD Primary Care Provider [phone] Encounter Details Date Type Department Care Team ([facility] st Contact Info) Description 11/15/2023 Orders Only [facility] CHC MED & PEDS [address] [place], [place] [phone] Handy Elias MD [address] [place], [place] [phone] Social History Tobacco Use Types Packs/Day Years [...] 4:00 PM EST Office Visit [facility] MED & PEDS [address] [place] [address] Handy Elias MD [address] [place] [address] 03/01/2025 1:00 PM EST Telemedicine [facility] MED & PEDS [address] [place] [address] Tessa Cox RN 505 [place] [address] documented as of this encounter Visit Diagnoses Not on filedocumented in this encounter Care Teams Automation Machine Builder Relationship Specialty Start Date End Date Handy Elias MD [address] [place] [address] PCP - General Internal Medicine 11/17/12 [facility] Health Services 12/19/24 documented as of this encounter
--- OUTSIDE RECORDS SUMMARY | 2025-02-09 19:22 | XMS_ITS | Encounter Summary ---
Author Organization [facility] Address [address] [place] [address] Care Team Providers Care Doctor Podiatric Medicine Name Role Phone Handy Elias MD Primary Care Provider [phone] Encounter Details Date Type Department Care Team (Late st Contact Info) Description 11/16/2024 Lab Requisition [facility] - Main Lab [address] [place] [address] Sonya Real PA [address] [place] [address] Encounter for other general examination [...] Procedure Name Priority Date/Time Associated Diagnosis Comments PROCALCITONIN STAT 11/16/2024 11:40 AM EDT Encounter for other general examination documented in this encounter Results * (ABNORMAL) Procalcitonin (11/16/2024 11:40 AM EDT) Procalcitonin 0.58(H) <=0.16 ng/mL LAB CHEMISTRY METHOD 11/16/2024 2:06 PM EDT [facility]) [facility] Blood Venous blood specimen / Unknown Venipuncture / Unknown 11/16/2024 11:40 AM EDT 11/16/2024 12:46 PM EDT Narrative [facility] - 11/16/2024 2:06 PM EDT Procalcitonin [...] [facility] LAB BLOOD ORDERABLES Final Re sult [facility] [address] [place] [address], documented in this encounter Visit Diagnoses Diagnosis Encounter for other general examination documented in this encounter Care Teams Doctor Podiatric Medicine Relationship Specialty Start Date End Date Handy Elias MD [address] [place] [address] PCP - General Internal Medicine 01/13/18 documented as of this encounter
== END 2025-02-09 15:01 | disposition home or self-care (01) ==
LOC: HO.HMGCX 15:00
PROVIDERS: PCP Internal Medicine; Visit Provider Internal Medicine
DX: G89.29 Other chronic pain (principal); M54.50 Low back pain, unspecified; R11.0 Nausea; R07.89 Other chest pain; W19.XXXA Unspecified fall, initial encounter
CPT/HCPCS: 36415; 71101; 72110; 80048; 85025

== ENCOUNTER → 2025-02-09 15:16 | Outpatient (BNV) | payer MEDICARE, SELFPAY | PROVIDERS: PCP Internal Medicine; Visit Provider Radiology Diagnostic Radiology | DX: M51.360 Other intervertebral disc degeneration, lumbar region with discogenic back pain only (principal); S22.32XA Fracture of one rib, left side, initial encounter for closed fracture; Z04.3 Encounter for examination and observation following other accident | CPT/HCPCS: 71101; 72110 ==

== ENCOUNTER 2025-02-16 16:28 | Outpatient (REF) | payer MEDICARE, SELFPAY ==
--- OUTSIDE RECORDS SUMMARY | 2022-01-26 | XMS_ITS | Encounter Summary ---
Author Organization [facility] Address [address] [place] [address] Phone Care Team Providers Care Classification Analyst Name Role Phone Handy Elias MD Primary Care Pr ovider Encounter Details Date Type Department Care Team (Late st Contact Info) Description 01/26/2022 Hospital Encounter [facility] [address] [place] [phone] Kenyetta Rubio MD [address] [place] [id number] [email or web address]@ [email or web address] Social History Tobacco Use Types Packs/Day Years Used Date Smoking Tobacco: Every Day Cigarettes 0.5 30 Smokeless Tobacco: Never Comments:Currently 1-2 cigar ettes QD Alcohol Use Standard Drinks/Week Comments Never 0 (1 standard drink = 0.6 oz pur e alcohol) Education Answer Date Recorded Are you interested in more education? Not on kristal e 07/05/2022 Are you concerned about learning? Not on file 07/05/2022 No 07/05/2022 No 07/05/2022 Digital Access Answer Date Recorded No 07/22/2022 No 07/22/2022 Reliable internet access at home? Not on file 07/22/2022 Device with a working camera? Not on file Intimate Partner Violence Answer Date R ecorded Are you denied basic needs s uch as food, clothing, or medical care? No 10/18/2022 In the past 12 months have y ou been in a relationship with a person who hurts, threatens, or tries to control you? No 10/18/2022 Are you denied basic needs s uch as food, clothing, or medical care? No 10/18/2022 In the past 12 months have y ou been in a relationship with a person who hurts, threatens, or tries to control you? No 10/18/2022 Sex and Gender Information Value Date Recorded Sex Assigned at Not on file Legal Sex Male 6:37 PM EST Gender Identity Not on file Sexual Orientation Not on file documented as of this encounter Plan of Treatment Not on file documented as of this encounter Procedures Procedure Name Priority Date/Time Associated Diagnosis Comments CT NECK OUTSIDE (NO INTERPRETATION) Routine 01/26/2022 12:00 AM EST documented in this encounter Results * CT Neck Outside (No Interpretation) (01/26/2022 12:00 AM EST) Narrative [facility] - 02/23/2022 10:53 AM EST This study is for PACS storage only and not for interpretation. Kenyetta Rubio MD IMG OUTSIDE IMAGING W/OUT INTERPRETATION Final Result [facility] documented in this encounter Visit Diagnoses Not on filedocumented in this encounter Care Teams Classification Analyst Relationship Specialty Start Date End Date Handy Elias MD PCP - General Internal Medicine 08/11/20 documented as of this encounter Additional Source Comments The information contained in this document represents components of the legal health record. It is not the complete legal health record.[facility]
--- OUTSIDE RECORDS SUMMARY | 2025-02-16 16:00 | XMS_ITS | Encounter Summary ---
Author Organization [employer] Address [address] [place] [address] 7 [place] [address] Care Team Providers Care Plant And Machinery Valuer Name Role Phone Handy Elias MD Primary Care Provider [phone] Reason for Visit * Reason Comments HDF Encounter Details Date Type Department Care Team ([facility] Contact Info) Description 02/16/2025 4:00 PM EST Office Visit [facility] CHC MED & PEDS [address] [place], [place] [phone] Handy Elias MD [address] [place], [place] [phone] Nausea (Primary Dx); Gastroesophageal reflux disease without esophagitis; Chronic midline low back pain without sciatica; Pruritus; Other elevated white blood cell (WBC) count; Intertrigo Social History Tobacco Use Types Packs/Day Years [...] Sign Reading Time Taken Comments Blood Pressure 162/103 02/16/2025 4:06 PM EST Pulse 83 02/16/2025 4:06 PM EST Temperature - - Respiratory Rate 20 02/16/2025 4:06 PM EST Oxygen Saturation 98% 02/16/2025 4:06 PM EST Inhaled Oxygen Concentration - - Weight 105 kg (232 lb) 02/16/2025 4:06 PM EST Height 180.3 cm (5' 11 ) 02/16/2025 4:06 PM EST Body Mass Index 32.36 02/16/2025 4:06 PM EST documented in this encounter Plan of Treatment Upcoming Encounters Date Type Department Care Team (Late st Contact Info) Description 03/01/2025 1:00 PM EST Telemedicine [facility] CHC MED & PEDS [address] [place] [address] Tessa Cox, RN 505 [place] [address] Scheduled Orders Name Type Priority Associated Diagnoses Orde r Schedule CBC auto differential Lab Routine Other elevated white blood cell (WBC) count Expected: 02/16/2025 (Approximate), Expires: 02/16/2026 documented as of this encounter Visit Diagnoses Diagnosis Nausea- Primary Nausea alone Gastroesophageal reflux disease without esophagitis Esophageal reflux Chronic midline low back pain without sciatica Pruritus Unspecified pruritic disorder Other elevated white blood cell (WBC) count Intertrigo Other specified erythematous condition documented in this encounter Additional Health Concerns Assessment Noted Time PHQ-9 Depression Total Score: 2 05/09/19 2:07 PM EDT documented as of this encounter Care Teams Plant And Machinery Valuer Relationship Specialty Start Date End Date Handy Elias MD [address] [place] [address] PCP - General Internal Medicine 11/17/[address] [facility] 12/19/24 documented as of this encounter
--- OUTSIDE RECORDS SUMMARY | 2025-02-16 17:05 | XMS_ITS | Encounter Summary ---
Author Organization [facility] Address [address] [place] [address] Phone Care Team Providers Care Water Treatment Technician Name Role Phone Handy Elias MD Primary Care Pr ovider Reason for Referral * Physical Therapy (Routine) - Closed Specialty Diagnoses / Procedures Referred By Contnanci weaver Referred To Contact Physical Therapy Diagnoses Encounter for rehabilitation Possible Bio[employer] Procedures Evaluate & Treat Christie Carcamo NP Phone: tel: fax: [address] [address] Phone: tel: Referral ID Status Reason Start Date Expiration Date Visits Re quested Visits Authorized [id number] Closed 09/07/2020 02/24/2021 10 10 Encounter Details Date Type Department Care Team (Latest Contact Info) Description 08/11/2020 Transcribe Orders [facility] [address] [place] [address] Christie Carcamo NP [address] [place] [address] Encounter for rehabilitation (Primary Dx) Social History [...] Date/Time Associated Diagnosis Comments AMB REFERRAL TO [facility] PHYSICAL THERAPY Routine 09/19/2020 6:13 PM EDT Encounter for rehabilitation documented in this encounter Results * Ambulatory referral to [facility] Physical Therapy (09/19/2020 6:13 PM EDT) Other us Christie Carcamo SUPERVISOR [employer] AMB [facility] REFERRALS Final Result documented in this encounter Visit Diagnoses Diagnosis Encounter for rehabilitation- Primary documented in this encounter Care Teams Water Treatment Technician Relationship Specialty Start Date End Date Handy Elias MD PCP - General Internal Medicine 08/11/20 documented as of this encounter Additional Source Comments The information contained in this document represents components of the legal health record. It is not the complete legal health record.[facility]
--- OUTSIDE RECORDS SUMMARY | 2025-02-16 17:05 | XMS_ITS | Encounter Summary ---
Author Organization [employer] Address 75 [facility] [place] 7 [place] [address] Care Team Providers Care Investment Executive Name Role Phone Handy Elias MD Primary Care Provider [phone]- [phone] Reason for Visit * Reason Onset Date Comments Med Refill 09/18/2023 Encounter Details Date Type Department Care Team ([facility] st Contact Info) Description 09/18/2023 Telephone [facility] MEDICINE [address] [place] [address] Handy Elias MD [address] [place], [place] [phone] Med Refill Social History Tobacco Use Types [...] [id number] - [place] - [address] [facility] [address] [place] [address] documented in this encounter Plan of Treatment Upcoming Encounters Date Type Department Care Team (Late st Contact Info) Description 03/01/2025 1:00 PM EST Telemedicine [facility] MED & PEDS [address] [place] [address] Tessa Cxo RN [address] [place] [address] documented as of this encounter Visit Diagnoses Not on filedocumented in this encounter Care Teams Investment Executive Relationship Specialty Start Date End Date Handy Elias MD [address] [place] [address] PCP - General Internal Medicine 11/17/12 [facility] Home Health Services 12/19/24 documented as of this encounter
--- OUTSIDE RECORDS SUMMARY | 2025-02-16 17:05 | XMS_ITS | Encounter Summary ---
Author Organization [facility] Address [address] [place] [address] Care Team Providers Care Barker Peeler Name Role Phone Handy Elias MD Primary Care Provider [phone] [phone] Encounter Details Date Type Department Care Team (Late st Contact Info) Description 12/18/2024 Lab Requisition [facility] - Main Lab 299 [facility] [place] [address] Sonya Real PA [address] [place] [address] Other correction (current) drug therapy Social History Tobacco Use [...] WAM Routine 12/18/2024 6:10 AM EDT Other correction (current) drug therapy CBC WITH AUTO DIFFERENTIAL Routine 12/18/2024 6:10 AM EDT Other correction (current) drug therapy CBC AND DIFFERENTIAL Routine 12/18/2024 6:10 AM EDT Other correction (current) drug therapy documented in this encounter Results * (ABNORMAL) Manual differential (12/18/2024 6:10 AM EDT) Neutrophils % 61.0 % LAB HEMETOLOGY METHOD 12/18/2024 11:45 AM [facility] Lymphocytes % 26.0 % LAB HEMETOLOGY METHOD 12/18/2024 11:45 AM [facility] Monocytes % 10.0 % LAB HEMETOLOGY METHOD 12/18/2024 11:45 AM [facility] Eosinophils % 1.0 % LAB HEMETOLOGY METHOD 12/18/2024 11:45 AM [facility] Basophils % 1.0 % LAB HEMETOLOGY METHOD 12/18/2024 11:45 AM [facility] Myelocytes % 1.0(H) % LAB HEMETOLOGY METHOD 12/18/2024 11:45 AM [facility] Neutrophils Absolute Manual 7.26(H) 1.50 - 7.00 K/mcL LAB HEMETOLOGY METHOD 12/18/2024 11:45 AM [facility] Lymphocytes Absolute 3.09 1.00 - 5.00 K/mcL LAB HEMETOLOGY METHOD 12/18/2024 11:45 AM [facility] Monocytes Absolute Manual 1.19(H) 0.20 - 1.00 K/mcL LAB HEMETOLOGY METHOD 12/18/2024 11:45 AM [facility] Eosinophils Absolute Manual 0.12 0.00 - 0.50 K/mcL LAB HEMETOLOGY METHOD 12/18/2024 11:45 AM [facility] Basophils Absolute Manual 0.12 0.00 - 0.20 K/mcL LAB HEMETOLOGY METHOD 12/18/2024 11:45 AM [facility] Myelocytes Absolute Manual 0.12(H) 0.00 - 0.00 K/mcL LAB HEMETOLOGY METHOD 12/18/2024 11:45 AM EDT [facility] Rbc Morphology Consistent with indices Consistent with indices, Normal for [facility] LAB HEMETOLOGY METHOD 12/18/2024 11:45 AM EDT [facility] Platelet Morphology - WAM See Note(A) Normal LAB HEMETOLOGY METHOD 12/18/2024 11:45 AM EDT [facility] Comment:PLT: Large platelets seen Blood Venous blood specimen / Unknown Venipuncture / Unknown 12/18/2024 6:10 AM EDT 12/18/2024 10:13 AM EDT us Sonya [facility] LAB BLOOD ORDERABLES Final Re sult [facility] [address] [place] [address], * (ABNORMAL) CBC auto differential (12/18/2024 6:10 AM EDT) WBC 11.9(H) 4.8 - 10.8 K/mcL LAB HEMETOLOGY METHOD 12/18/2024 11:45 AM EDT [facility] RBC 3.40(L) 4.50 - 5.50 M/mcL LAB HEMETOLOGY METHOD 12/18/2024 11:[facility] Hemoglobin 10.2(L) 13.5 - 17.5 g/dL LAB HEMETOLOGY METHOD 12/18/2024 11:45 AM EDT [facility] Hematocrit 32.5(L) 42.0 - 54.0 % LAB HEMETOLOGY METHOD 12/18/2024 11:45 AM EDT [facility] MCV 96.2 79.0 - 98.0 FL LAB HEMETOLOGY METHOD 12/18/2024 11:45 AM EDT [facility] MCH 30.2 27.0 - 32.0 pcg LAB HEMETOLOGY METHOD 12/18/2024 11:45 AM EDT [facility] MCHC 31.4(L) 32.0 - 37.0 g/dL LAB HEMETOLOGY METHOD 12/18/2024 11:45 AM EDT [facility] RDW 15.5(H) 11.0 - 15.0 % LAB HEMETOLOGY METHOD 12/18/2024 11:45 AM EDT [facility] Platelets 538(H) 130 - 400 K/mcL LAB HEMETOLOGY METHOD 12/18/2024 11:45 AM EDT [facility] MPV 10.4 7.0 - 11.0 FL LAB HEMETOLOGY METHOD 12/18/2024 11:45 AM EDT [facility] NRBC 0.0 <1.0 % LAB HEMETOLOGY METHOD 12/18/2024 11:45 AM EDT [facility] NRBC Absolute 0.00 <0.10 K/mcL LAB HEMETOLOGY METHOD 12/18/2024 11:45 AM T [facility] Blood Venous blood specimen / Unknown Venipuncture / Unknown 12/18/2024 6:10 AM EDT 12/18/2024 10:13 AM EDT us Sonya [facility] BLOOD ORDERABLES Final Re sult [facility] [address] [place] [address], documented in this encounter Visit Diagnoses Diagnosis Other correction (current) drug therapy documented in this encounter Care Teams Barker Peeler Relationship Specialty Start Date End Date Handy Elias MD [address] [place] [address] PCP - General Internal Medicine 01/13/18 documented as of this encounter
--- OUTSIDE RECORDS SUMMARY | 2025-02-16 17:05 | XMS_ITS | Encounter Summary ---
Author Organization [employer] Address 75 [facility] 7 [place] [address] Care Team Providers Care Health Informatics Instructor Name Role Phone Handy Elias MD Primary Care Provider [phone]- [phone] Reason for Visit * Reason Onset Date Comments Call Back Request 06/19/2023 Encounter Details Date Type Department Care Team (Late st Contact Info) Description 06/19/2023 Telephone [facility] [address] [place] [address] Handy Elias MD [address] [place], [place] [phone] Call Back Request Social History Tobacco Use [...] Department Care Team (Late Contact Info) Description 03/01/2025 1:00 PM EST Telemedicine [facility]S [address] [place] [address] Tessa Cox, MARITA 505 [place], [place] [phone] documented as of this encounter Visit Diagnoses Not on filedocumented in this encounter Care Teams Health Informatics Instructor Relationship Specialty Start Date End Date Handy Elias MD [address] [place] [address] PCP - General Internal Medicine 11/17/12 [facility] Home Health Services 12/19/24 documented as of this encounter
--- OUTSIDE RECORDS SUMMARY | 2025-02-16 17:05 | XMS_ITS | Encounter Summary ---
Author Organization [employer] Address 75 [facility] 7 [place] [address] Care Team Providers Care Environmental Adviser Name Role Phone Handy Elias MD Primary Care Provider [phone]- [phone] Reason for Visit * Reason Onset Date Comments Med Refill 09/23/2023 Encounter Details Date Type Department Care Team ([facility] st Contact Info) Description 09/23/2023 Telephone [facility] MEDICINE [address] [place], [place] [phone] Handy Elias MD 505 [place], [place] [phone] Med Refill Social History Tobacco Use Types [...] release tablet To be sent to: [facility]/pharmacy #[id number] - [place] [facility]WIS - [address] [facility] [address] documented in this encounter Plan of Treatment Upcoming Encounters Date Type Department Care Team (Late st Contact Info) Description 03/01/2025 1:00 PM EST Telemedicine [facility] CHC MED & PEDS [address] [place] [address] Tessa Cox, MARITA [address] [place] [address] documented as of this encounter Visit Diagnoses Not on filedocumented in this encounter Care Teams Environmental Adviser Relationship Specialty Start Date End Date Handy Elias MD 505 [place] [address] PCP - General Internal Medicine 11/17/12 [facility] 12/19/24 documented as of this encounter
--- OUTSIDE RECORDS SUMMARY | 2025-02-16 17:05 | XMS_ITS | Encounter Summary ---
Author Organization [employer] Address [address] [place] [address] 7 [place] [address] Care Team Providers Care Master Police Detective Name Role Phone Handy Elias MD Primary Care Provider [phone] Encounter Details Date Type Department Care Team (Late st Contact Info) Description 02/02/2022 Orders Only [facility] MEDICINE [address] [place], [place] [phone] Handy Elias MD [address] [place], [place] [phone] Cold intolerance of hand (Primary Dx); Primary [...] Info) Description 03/01/2025 1:00 PM EST Telemedicine [facility] MED & PEDS [address] [place], [place] [phone] Tessa Cox, RN [address] [place], [place] [phone] documented as of this encounter Procedures Procedure Name Priority Date/Time Associated Diagnosis Comments TSH W/REFLEX TO FT4 Routine 03/01/2022 1 1:16 AM EST Cold intolerance of hand documented in this encounter Results * TSH W/Reflex to FT4 (03/01/2022 11:16 AM EST) TSH w/Reflex to FT4 2.35 0.40 - 4.50 mIU/L [facility] [place] [facility] 03/01/2022 11:1 6 AM EST 03/01/2022 11:16 AM EST us Handy Elias MD LAB BLOOD ORDERABLES Final Result [facility] [address] [facility], [facility], [place] [address] [facility] [place] [facility] [address] [facility], ([address]) [place] [address] documented in this encounter Visit Diagnoses Diagnosis Cold intolerance of hand- Primary Primary insomnia Persistent disorder of initiating or maintaining sleep documented in this encounter Care Teams Master Police Detective Relationship Specialty Start Date End Date Handy Elias MD [address] [place] [id number] PCP - General Internal Medicine 11/17/12 [facility] 12/19/24 documented as of this encounter
--- OUTSIDE RECORDS SUMMARY | 2025-02-16 17:05 | XMS_ITS | Encounter Summary ---
Author Organization [employer] Address [address] [place] [address] 7 [place] [address] Care Team Providers Care Window Shade Cutter Name Role Phone Handy Elias MD Primary Care Provider [phone] Encounter Details Date Type Department Care Team (Late Contact Info) Description 05/14/2023 Orders Only [facility] MED & PEDS [address] [place], [place] [phone] Handy Elias MD [address] [place], [place] [phone] Mood disorder (CMS/HCC) (Primary Dx) Social History [...] Info) Description 03/01/2025 1:00 PM EST Telemedicine [facility] MED & PEDS [address] [place], [place] [phone] Tessa Cox RN [address] [place], [place] [phone] documented as of this encounter Visit Diagnoses Diagnosis Mood disorder (CMS/HCC)- Primary Unspecified episodic mood disorder documented in this encounter Care Teams Window Shade Cutter Relationship Specialty Start Date End Date Handy Elias MD [address] [place] [id number] PCP - General Internal Medicine 11/17/[address] [facility] 12/19/24 documented as of this encounter
--- OUTSIDE RECORDS SUMMARY | 2025-02-16 17:05 | XMS_ITS | Encounter Summary ---
Author Organization [employer] Address [address] [place] [address] Care Team Providers Care Inseam Trimming Machine Operator Name Role Phone Handy Elias MD Primary Care Provider [phone] Reason for Referral * Consultation (Routine) - Closed Specialty Diagnoses / Procedures Referred By Maurice weaver Referred To Contact Otolaryngology Diagnoses Other chronic sinusitis Handy Elias MD [address] [place] [address] Phone: tel: fax: [facility] [address] Phone: tel: fax: Referral ID Status Reason Start Date Expiration Date V isits Requested Visits Authorized [id number] Closed Specialty Services Required 03/25/2024 03/25/2025 1 1 Encounter Details Date Type Department Care Team ([facility] st Contact Info) Description 03/25/2024 Orders Only [facility] MED & PEDS [address] [place], [place] [phone] Handy Elias MD [address] [place], [place] [phone] Other chronic sinusitis (Primary Dx) Social History [...] ([facility] st Contact Info) Description 03/01/2025 1:00 PM EST Telemedicine [facility]EDS [address] [place] [address] Tessa Cox RN [address] [place] [address] Scheduled Referrals Name Type Priority Associated Diagnoses Orde r Schedule Referral to ENT Outpatient Referral Routine Other chronic sinusitis Expected: 03/25/2024 (Approximate), Expires: 03/25/2025 documented as of this encounter Visit Diagnoses Diagnosis Other chronic sinusitis- Primary documented in this encounter Care Teams Inseam Trimming Machine Operator Relationship Specialty Start Date End Date Handy Elias MD [address] [place] [address] PCP - General Internal Medicine 11/17/12 [facility] 12/19/24 documented as of this encounter
--- OUTSIDE RECORDS SUMMARY | 2025-02-16 17:05 | XMS_ITS | Encounter Summary ---
Author Organization [employer] Address [address] [facility] 7 [place] [address] Care Team Providers Care Government Operations Consultant Name Role Phone Handy Elias MD Primary Care Provider [phone] Reason for Visit * Reason Onset Date Comments Call Back Request 05/14/2023 Encounter Details Date Type Department Care Team (Late st Contact Info) Description 05/14/2023 Telephone [facility] MEDICINE [address] [place], [place] [phone] Handy Elias MD [address] [place] [address] Call Back Request Social History Tobacco Use [...] Info) Description 03/01/2025 1:00 PM EST Telemedicine [facility] MED & PEDS [address] [place] [address] Tessa Cox, MARITA [address] [place] [address] documented as of this encounter Visit Diagnoses Not on filedocumented in this encounter Care Teams Government Operations Consultant Relationship Specialty Start Date End Date Handy Elias MD [address] [place] [address] PCP - General Internal Medicine 11/17/12 [facility] 12/19/24 documented as of this encounter
--- OUTSIDE RECORDS SUMMARY | 2025-02-16 17:05 | XMS_ITS | Data Portability ---
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 Patient agrees with the plan all questions were answered. [email or web address] Not available 10/30/2024 14:52:33 Plan of Treatment [...] Organization Details Recorded Time Acute pharyngit is [id number] Active 2013 Pharyngiti s, acute; [facility] Risk: low risk [facility] Treatment: new problem (to examiner): additional workup planned No te: Date Diagnosed: 12/16/2013 4:30 PM (462) Not Available [facility] 4 02:47:57 Cough 98070273 Active 2016 Cough; Note: Date Diagnosed: 03/23/2016 4:25 PM (R05) Not Available [facility] 4 02:47:53 Nasal congestio n 33226510 Active 2016 Nasal congestion ; Note: Date Diagnosed: 03/23/2016 4:25 PM (R09.81) Not Available [facility] 4 02:47:57 Snoring 23136972 Active 2016 Snoring; Note: Date Diagnosed: 08/23/2016 4:44 PM (R06.83) Not Available [facility] 4 02:47:57 Hypertrop hy of tonsils 12642305 Active 2016 Hypertroph y of tonsils; Note: Date Diagnosed: 08/23/2016 4:50 PM (J35.1) Not Available [facility] 4 02:47:54 Simple obesity 216683057 Active 2016 Other obesity due to excess calories; Note: Date Diagnosed: 08/23/2016 4:44 PM (E66.09) Not Available [facility] 4 02:47:56 Obstructi ve sleep apnea syndrome 90672822 Active 2016 Obstructiv e sleep apnea (adult) (pediatric ); Note: Date Diagnosed: 08/23/2016 4:44 PM (G47.33) Not Available [facility] 4 02:47:53 Acute sinusitis 92281210 Active 2016 Acute sinusitis, unspecifie d; Note: Date Diagnosed: 02/07/2017 3:59 PM (J01.90) Not Available [facility] 4 02:47:58 Posterior rhinorrhe a 40204984 Active 2016 Postnasal drip; Note: Date Diagnosed: 02/07/2017 3:59 PM (R09.82) Not Available [facility] 4 02:47:58 Abnormal auditory perceptio n 68334920 Active 2017 Other abnormal auditory perception s, bilateral; Note: Date Diagnosed: 09/02/2017 4:53 PM (H93.293) Not Available [facility] 4 02:47:53 Sensorine ural hearing loss of bilateral ears 956396521 Active 2017 Sensorineu ral hearing loss, bilateral; Note: Date Diagnosed: 09/02/2017 5:33 PM (H90.3) Not Available [facility] 4 02:47:51 Acute sialoaden itis 252525740 Active 2021 Acute sialoadeni tis; Note: Date Diagnosed: 01/23/2022 3:21 PM (K11.21) Not Available [facility] 4 02:47:55 Allergic rhinitis caused by pollen 50532554 Active 2022 Allergic rhinitis due to pollen; Note: Date Diagnosed: 12/18/2022 3:52 PM (J30.1) Allergic rhinitis due to pollen; Note: Date Diagnosed: 04/19/2021 1:28 PM (J30.1) ; Start Date : 04/19/2021 Not Available [facility] 4 02:47:55 Allergic rhinitis 40785454 Active 2023 Allergic rhinitis: Due to other [...] Diagnosed: 12/08/2021 2:10 PM (477 Not Available [facility] 4 01:08:11 Perennial allergic rhinitis 262798498 Active 2023 YOANNA SAINZ [address], [facility] [place], [address] , [facility] [place] [facility] 4 14:51:26 Chronic sinusitis 60293639 Active 2024 ESSIE PLEITEZ PA-C [address], [facility] [place], [address] , [facility] [place] 5 16:05:25 Gastroeso phageal reflux disease without esophagit is 418447339 Active 2024 ESSIE PLEITEZ PA-C [address], [facility] [place], [address] , [place] [facility] [place] [facility] 14:28:00 Problem Notes None recorded. Procedures Surgical History Date Name Laterality Status Provider Name and Address Organization Details Recorded Time 10/31/19 25 FOL_DP completed ESSIE PLEITEZ PA-C [address], [place], [address], [facility] - [facility] [place] 10/30/2024 14:17:54 10/17/19 25 Allergy Immunotherapy Injections completed YOANNA ABEBE [address], [place], [address], [facility] [place] 10/16/2024 15:16:05 09/26/19 25 Allergy Immunotherapy Injections completed KAROLINE KELLY RN [address], [place], [address], [facility] [place] [facility] 09/25/2024 14:57:11 08/15/19 25 Allergy Immunotherapy Injections completed YOANNA SAINZ [address], [place], [address], [facility] [place] [facility] 08/14/2024 14:03:05 07/08/19 25 Allergy Immunotherapy Injections completed GUY KORZEC, RMA [address], [address], [place] [facility] [place] [facility] 07/07/2024 15:12:46 05/13/19 25 Allergy Immunotherapy Injections completed YOANNA SAINZ [address] [place] [address], [address], [place] [facility] [place] [facility] 05/12/2024 14:44:23 04/22/19 25 Allergy Immunotherapy Injections completed YOANNA SAINZ [address] [facility] [place],[address], [address], [place] [facility] [place] [facility] 04/22/2024 13:45:00 04/15/19 25 Allergy Immunotherapy Injections completed YOANNA SAINZ [address] [facility] [place],[address] [place] [address], [address], [place] [facility] [place] [facility] 04/15/2024 14:55:54 04/15/19 25 NasalEndoscopy_DP completed YUNILE DONALD MD 100 [facility],[address] [place] [address], [address], [facility] [place] [facility] 04/15/2024 14:43:26 04/09/19 25 Allergy Immunotherapy Injections completed GUY NUNN RMA [address] [facility] [place],[address] [place] [address], [address], [facility] [place] [facility] 04/09/2024 15:24:18 04/03/19 25 Allergy Immunotherapy Injections completed YOANNA SAINZ [address] [facility] [place],[address] [place] [address], [address], [facility] [place] [facility] 04/03/2024 13:31:44 03/27/19 25 Allergy Immunotherapy Injections completed KAROLINE KELLY RN [address] [facility] [place],[address] [place] [address], [address], [place] [facility] [place] [facility] 03/27/2024 13:20:20 03/13/19 25 Allergy Immunotherapy Injections completed GUY NUNN RMA [address] [facility] [place],[address], [address], [place] [facility] [place] [facility] 03/13/2024 14:51:01 02/26/19 25 Allergy Immunotherapy Injections completed GUY KORZEC, RMA [address], [place], [address], [facility] [place] [facility] 02/27/2024 16:07:25 02/26/19 25 JMSNasal/Sinus Endoscopy completed ESSIE PLEITEZ PA-C [address] [facility], [place], [address], [facility] - [facility] 02/27/2024 16:37:51 02/17/20 24 Allergy Immunotherapy Injections completed KAROLINE KELLY RN [address], [place], [address], [facility] [place] [facility] 02/17/2024 14:48:11 10/16/19 24 Allergy Immunotherapy Injections completed YOANNA SAINZ [address], [place], [address], [facility] - [facility] 10/16/2023 16:51:03 09/25/19 24 Allergy Immunotherapy Injections completed KAROLINE KELLY RN [address] [place] [address], [address], [facility] - [facility] 09/25/2023 11:18:43 08/13/19 24 Allergy Immunotherapy Injections completed YOANNA SAINZ [address] [place] [address], [address], [facility] - [facility] 08/13/2023 15:02:29 07/18/19 24 Allergy Immunotherapy Injections completed YOANNA SAINZ [address] [facility] [place],[address] [place] [address], [address], [facility] - [facility] 07/18/2023 14:51:59 Imaging Results None recorded. Procedure Notes None recorded. Medical Equipment None Reported. Allergies Allergen ID Allergen Name Allergen Category Reaction Reaction Severity Criticality Documentation Date Start Date Code Code System Note Provider Name and Address Organization Details Recorded Time 753005 pineapple allergeni c extract food,medi cation other Not available Not available 02/08/20252020 78059 5 RxNorm Not Available [employer] - prod 11:13:32 584001 mite extract Not available Not available Not available Not available 02/08/20252023 71230 3 RxNorm Not Available [employer] - External Data Service - prod 11:13:39 786154 mold extract environme nt Not available Not available Not available 02/08/20252021 35989 8 RxNorm Not Available [employer] - prod 11:13:39 849843 pineapple extract food Not available Not available Not available 02/08/20252020 30877 74 RxNorm Other react ion(s ): Other (see comme nts) Not Available [employer] - External Data Service - prod 11:14:18 117442 honey bee venom environme nt Not available Not available Not available 02/08/20252020 68813 7 RxNorm Other react ion(s ): Other (see comme nts) Not Available [employer] - prod 11:14:18 Medications Name [...] by mouth 02/26 completed Medicati on ID: 839126 D uration Value: 12 Brand Name: predniso [...] ibed Sub s Allowed: subs OK [facility] clindamy taz HCl Not Available [...] mg tablet 02/26 completed Medicati on ID: 717089 D uration Value: 30 Brand Name: tizanidi [...] mg tablet 03/16 completed Medicati on ID: 840496 D uration Value: 30 Reason: () Brand Name: citalopr am Send Method: E-Prescr ibed Sub s Allowed: subs OK Speci al Instruct ion: TAKE 1 TABLET BY MOUTH EVERY DAY Medi cationGe nericNam e: citalopr am Not Available Not Available Not Available Anafranil 50 mg capsule 02/26 completed Medicati on ID: 314226 B rand Name: Anafrani l Send Method: [...] mg) tablet 2019 active Medicati on ID: 213826 B rand Name: Calcium 600 Send Method: [...] No t Available Nasonex 50 mcg/actua tion [place] 2 spray into both nostrils 02/26 completed Medicati on ID: 315051 D uration Value: 30 Prescri bed By [...] mg tablet 03/16 completed Medicati on ID: 999679 D uration Value: 30 Reason: () Brand [...] 2 puff 2021 active Medicati on ID: 463098 D uration Value: 30 Prescri bed By [...] bromide 21 mcg (0.03 %) nasal spray [place] 2 spray into both nostrils three times a day 02/26 completed Medicati on ID: 416630 D uration Value: 30 Brand Name: ipratrop ium bromide Send Method: E-Prescr ibed Sub s Allowed: subs OK Speci al Instruct ion: 2 sprays in each nostril 1-3 times a day Medi cationGe nericNam e: ipratrop ium bromide Not Available Not Available Not Available finasteri de 5 mg tablet 03/16 completed Medicati on ID: 859830 D uration Value: 30 Reason: () Brand [...] by mouth 02/26 completed Medicati on ID: 246271 D uration Value: 7 Prescri bed By [...] by mouth 02/26 completed Medicati on ID: 727785 D uration Value: 10 Prescri bed By Name: DAYANNA Liang nd Name: guaifene sin Send Method: E-Prescr ibed Sub s Allowed: subs OK Medic ationGen ericName : guaifene sin Not Available Not Available Not Available oxymetazo line 0.05 % nasal spray 03/16 completed Medicati on ID: 862999 P rescribe d By Name: DAYANNA Liang [...] extended release 10/24 completed Medicati on ID: 431575 B rand Name: bupropio n HCl Send Method: E-Prescr ibed Sub s Allowed: subs OK Speci al Instruct ion: TAKE 1 TABLET BY MOUTH EVERY MORNING Medicati onGeneri cName: bupropio n HCl Not Available Not Available Not Available Fosamax Plus D 70 mg-2,800 unit tablet 02/26 completed Medicati on ID: 475491 B rand Name: Fosamax Plus D Send [...] mg capsule 10/24 completed Medicati on ID: 350560 B rand Name: CoQ-10 S end Method: [...] Available B12 09/13 completed Medicati on ID: 267041 B rand Name: b12 Send Method: E-Prescr ibed Sub s Allowed: subs OK Medic ationGen ericName : b12 Not Available Not Available Not Available Dulera 200 mcg-5 mcg/actua tion HFA aerosol inhaler 2 puff 02/26 completed Medicati on ID: 229330 D uration Value: 90 Brand Name: Dulera [...] Codes Diagnosis Note [id number] YOANNA SAINZ Allergy [address] [place] [address] 07/18/2023 14:48:19 07/18/2023 15:28:24 Perennial allergic rhinitis 160482796 J30.89 1683 SHAAN NORMAN PA-C [facility] of [address] [address] 07/23/2023 13:05:54 07/23/2023 13:46:22 Allergic rhinitis 31135709 J30.9 Nasal congestion 4388773 0 R09.81 Posterior rhinorrhea 758 89304 R09.82 4573 YOANNA SAINZ Allergy [address] [place] [address] 08/13/2023 14:55:05 08/13/2023 15:27:43 Perennial allergic rhinitis 321599546 J30.89 [id number] KAROLINE KELLY RN Allergy [address] [place] [address] 09/25/2023 10:48:16 09/25/2023 11:19:33 Perennial allergic rhinitis 022222600 J30.89 [id number] YOANNA SAINZ Allergy [address] [facility],[place] [address] [place] [address] 10/16/2023 15:40:04 10/16/2023 17:27:25 Perennial allergic rhinitis 718499471 J30.89 [id number] KAROLINE KELLY RN Allergy [address] [facility],[place] [address] [place] [address] 02/17/2024 13:50:57 02/17/2024 14:49:34 Perennial allergic rhinitis 016600091 J30.89 [id number] ESSIE PLEITEZ PA-C [facility] [place] [address] [facility] [place] [address] 02/27/2024 15:21:49 02/27/2024 16:04:55 Chronic sinusitis 16455392 J32.9 Perennial allergic rhinitis 161294381 J30.89 [id number] [facility] Allergy [address] [facility],[place] [address] [place] [address] 02/27/2024 16:06:49 02/27/2024 16:07:58 Perennial allergic rhinitis 153652348 J30.89 [id number] [facility] Allergy [address] [facility],[place] [address] [place] [address] 03/13/2024 14:34:16 03/13/2024 14:51:30 Perennial allergic rhinitis 110031621 J30.89 [id number] [facility]YSSA [facility] Allergy [address] [place] [address],[place] [address] [place] [address] 03/27/2024 13:00:24 03/27/2024 13:21:07 Perennial allergic rhinitis 213285171 J30.89 [id number] [facility] Allergy 100 [facility],[place] [address] [place] [address] 04/03/2024 12:51:55 04/03/2024 13:32:07 Perennial allergic rhinitis 641825042 J30.89 [id number] [facility] Allergy [address] [facility],[place] [address] [place] [address] 04/09/2024 14:46:04 04/09/2024 15:25:13 Perennial allergic rhinitis 755034146 J30.89 [id number] YUNIEL DONALD MD [facility] of [facility] - [place] [address] [place] [address] 04/15/2024 13:59:30 04/15/2024 14:47:16 Allergic rhinitis 65294405 J30.9 [id number] ELYSSA [facility], [facility] Allergy [address] [place] [address],[address] [place] [address] 04/15/2024 14:54:56 04/15/2024 14:56:12 Perennial allergic rhinitis 737976521 J30.89 [id number] [facility] Allergy [address] [place] [address], [address] [place] [address] 04/22/2024 13:22:05 04/22/2024 14:29:58 Perennial allergic rhinitis 261254067 J30.89 [id number] KAROLINE KELLY RN Allergy [address] [place], [place] [address] [address] [place] [address] 05/12/2024 14:43:08 05/12/2024 14:45:26 Perennial allergic rhinitis 543333466 J30.[id number] [facility] Allergy [address] [place], [place] [address] [address] [place] [address] 07/07/2024 14:56:36 07/07/2024 15:15:32 Perennial allergic rhinitis 432362706 J30.89 [id number] [facility] Allergy [address] [place] [address],[facility] [address] [place] [address] 08/14/2024 13:53:02 08/14/2024 14:03:20 Perennial allergic rhinitis 706100078 J30.89 [id number] KAROLINE KELLY RN Allergy [address] [place] [address], [address] [place] [address] 09/25/2024 14:15:54 09/25/2024 14:59:18 Perennial allergic rhinitis 920153239 J30.89 [id number] [facility] [address] [place] [address], [address] [place] [address] 10/16/2024 13:43:14 10/16/2024 15:16:38 Perennial allergic rhinitis 883028583 J30.89 [id number] ESSIE PLEITEZ PA-C [facility] 100 [place] [address] 10/30/2024 13:20:31 10/30/2024 14:08:32 Perennial allergic rhinitis 111722552 J30.89 Posterior rhinorrhea 758 79811 R09.82 Gastroesop hageal reflux disease without esophagitis 418179328 K21.9 813381 Health Concerns Section Related Observation LastModified by Organization Detai ls LastModified Time None Recorded Concern Status LastModified by Organization Details LastModified Time None Recorded Advance Directives Directive None Recorded Payers Insurance Date Sequence Insurance Name Policy Number Policy Aranda Covered Member ID Aranda Member ID Guarantor Name 10/30/2024 2 [place] [id number] Henri Bal Srinivas [id number] Henri Espino 10/30/2024 1 [place] B[place] [employer] Henri Bal Srinivas [id number] 1 Henri Espino Notes Date Note Type [...] He is followed by Dr. Bahena at [facility] pulmonology and was treated for haemophilus parainfluenzae [...] and voice changes. ROSANNA SANDY MD 100 [facility],[place] [address], [place], [address], [facility] - [facility] 11/01/2024 12:13:08
--- OUTSIDE RECORDS SUMMARY | 2025-02-16 17:05 | XMS_ITS | Encounter Summary ---
Author Organization [employer] Address [address] [facility] 7 [place] [address] Care Team Providers Care Er Medical Technician Name Role Phone Handy Elias MD Primary Care Provider [phone]- [phone] Reason for Visit * Reason Onset Date Comments Med Refill 07/28/2024 Encounter Details Date Type Department Care Team (Late st Contact Info) Description 07/28/2024 Telephone [facility] MEDICINE [address] [place], [place] [phone] Handy Elias MD [address] [place], [place] [phone] Med Refill Social History Tobacco Use Types [...] immediate release tablet To be sent to: [facility]/pharmacy #[id number] - [place], [place] - [address] [place] [address] AT [address], [place] [address] documented in this encounter Plan of Treatment Upcoming Encounters Date Type Department Care Team (Late st Contact Info) Description 03/01/2025 1:00 PM EST Telemedicine [facility] MED & PEDS [address] [place] [address] Tessa Cox RN [address] [place] [address] documented as of this encounter Visit Diagnoses Not on filedocumented in this encounter Additional Health Concerns Assessment Noted Time PHQ-9 Depression Total Score: 2 05/09/19 25 2:07 PM EDT documented as of this encounter Care Teams Er Medical Technician Relationship Specialty Start Date End Date Handy Elias MD [address] [place] [address] PCP - General Internal Medicine 11/17/[address] [facility] 12/19/24 documented as of this encounter
--- OUTSIDE RECORDS SUMMARY | 2025-02-16 17:05 | XMS_ITS | Encounter Summary ---
Author Organization [facility] Address [address] [place] [address] Phone Care Team Providers Care Pastoral Ministries Professor Name Role Phone Handy Elias MD Primary Care Pr ovider Encounter Details Date Type Department Care Team (Late st Contact Info) Description 10/18/2022 Procedure Pass [facility] [address] [place] [address] Social History Tobacco Use Types Packs/Day Years [...] on filedocumented in this encounter Care Teams Pastoral Ministries Professor Relationship Specialty Start Date End Date Handy Elias MD PCP - General Internal Medicine 08/11/20 documented as of this encounter Additional Source Comments The information contained in this document represents components of the legal health record. It is not the complete legal health record.[facility]
--- OUTSIDE RECORDS SUMMARY | 2025-02-16 17:05 | XMS_ITS | Encounter Summary ---
Author Organization [employer] Address [address] [place] [address] [place] [address] Care Team Providers Care Senior Examiner Name Role Phone Handy Elias MD Primary Care Provider +1- [phone] Encounter Details Date Type Department Care Team ([facility] Contact Info) Description 2022 Abstract [facility] MEDICINE [address] [place], [place] [phone] ProviderMelanie MD Social History Tobacco Use Types [...] Description 03/01/2025 1:00 PM EST Telemedicine [facility] MED & PEDS [address] [place], [place] [phone] Tessa Cox, MARITA [address] [place], [place] [phone] documented as of this encounter Visit Diagnoses Not on filedocumented in this encounter Care Teams Senior Examiner Relationship Specialty Start Date End Date Handy Elias MD [address] [place] [address] PCP - General Internal Medicine 11/17/12 [facility] 12/19/24 documented as of this encounter
--- OUTSIDE RECORDS SUMMARY | 2025-02-16 17:05 | XMS_ITS | Encounter Summary ---
Author Organization [employer] Address [address] [place] [address] 7 [place] [address] Care Team Providers Care Mechanical Sound Technician Name Role Phone Handy Elias MD Primary Care Provider +1- [phone] Reason for Visit * Reason Onset Date Comments Med Refill 07/30/2023 Encounter Details Date Type Department Care Team (Late st Contact Info) Description 07/30/2023 Telephone [facility] MEDICINE [address] [place], [place] [phone] Handy Elisa MD [address] [place], [place] [phone] Med Refill Social History Tobacco Use Types [...] sent to: [facility]/pharmacy #[id number] - [place] - [address] [facility] AT [address], [place] [address] documented in this encounter Plan of Treatment Upcoming Encounters Date Type Department Care Team (Late st Contact Info) Description 03/01/2025 1:00 PM EST Telemedicine [facility] MED [facility]EDS [address] [place] [address] Tessa Cox, MARITA [address] [place] [address] documented as of this encounter Visit Diagnoses Not on filedocumented in this encounter Care Teams Mechanical Sound Technician Relationship Specialty Start Date End Date Handy Elias MD 505 [place] [address] PCP - General Internal Medicine 11/17/12 [facility] 12/19/24 documented as of this encounter
--- OUTSIDE RECORDS SUMMARY | 2025-02-16 17:05 | XMS_ITS | Encounter Summary ---
Author Organization [employer] Address [address] [facility] 7t [place] [address] Care Team Providers Care Brass Instrument Repair Technician Name Role Phone Handy Elias MD Primary Care Provider [phone] Encounter Details Date Type Department Care Team (Latest Contact Info) Description 02/16/2025 Travel Social History Tobacco Use Types Packs/Day [...] Upcoming Encounters Date Type Department Care Team ([facility] st Contact Info) Description 03/01/2025 1:00 PM EST Telemedicine [facility] CH[facility] MED & PEDS 505 [place] [address] Tessa Cox, MARITA 505 [place] [address] documented as of this encounter Visit Diagnoses Not on filedocumented in this encounter Additional Health Concerns Assessment Noted Time PHQ-9 Depression Total Score: 2 05/09/19 25 2:07 PM EDT documented as of this encounter Care Teams Brass Instrument Repair Technician Relationship Specialty Start Date End Date Handy Elias MD 505 [place] [address] PCP - General Internal Medicine 11/17/12 [facility] Services 12/19/24 documented as of this encounter
--- OUTSIDE RECORDS SUMMARY | 2025-02-16 17:05 | XMS_ITS | Clinical Summary ---
Author Organization [facility] Address [address] [place] [address] Phone Care Team Providers Care Performance Analyst Name Role Phone Handy Elias MD [...] topic Medical Devices Not on file Insurance [email or web address] SUPPLEMENT [employer] MEDEX SUPPLEMENT [employer] MEDEX SUPPLEMENT [email or web address] SUPPLEMENT [email or web address] SUPPLEMENT [employer] MEDEX SUPPLEMENT Advance Directives For more information, please contact: [phone] (9AM - 5PM [facility], Saturday-Saturday) Documents on File Type Date Recorded Patient Faith Doctor Expl anation Healthcare Proxy 10/19/2022 3:35 PM Care Teams Performance Analyst Relationship Specialty Start Date End Date Handy Elias MD PCP - General Internal Medicine 08/11/20 Additional Source Comments The information contained in this document represents components of the legal health record. It is not the complete legal health record.[facility]
--- OUTSIDE RECORDS SUMMARY | 2025-02-16 17:06 | XMS_ITS | Encounter Summary ---
Author Organization [employer] Address [address] [place] [address] [place] [address] Care Team Providers Care Machine Container Washer Name Role Phone Handy Elias MD Primary Care Provider [phone]- [phone] Encounter Details Date Type Department Care Team ([facility] Contact Info) Description 12/26/2022 Abstract [facility] MEDICINE [address] [place], [place] [phone] Handy Elias MD 505 [place], [place] [phone] Social History Tobacco Use Types Packs/Day Years [...] Upcoming Encounters Date Type Department Care Team ([facility] Contact Info) Description 03/01/2025 1:00 PM EST Telemedicine [facility] CHC MED & PEDS 505 [place], [place] [phone] Tessa Cox, MARITA 505 [place], [place] [phone] documented as of this encounter Visit Diagnoses Not on filedocumented in this encounter Care Teams Machine Container Washer Relationship Specialty Start Date End Date Handy Elias MD 505 [place], [place] [phone] PCP - General Internal Medicine 11/17/12 [facility] 12/19/24 documented as of this encounter
--- OUTSIDE RECORDS SUMMARY | 2025-02-16 17:06 | XMS_ITS | Encounter Summary ---
Author Organization [employer] Address [address] [place] [address] [place] [address] Care Team Providers Care Monogram And Letter Paster Name Role Phone Handy Elias MD Primary Care Provider [phone]- [phone] Encounter Details Date Type Department Care Team ([facility] Contact Info) Description 08/29/2022 Orders Only [facility] CHC MED & PEDS 505 [place], [place] [phone] Handy Elias MD 505 [place], [place] [phone] Social History Tobacco Use Types Packs/Day Years [...] Info) Description 03/01/2025 1:00 PM EST Telemedicine [facility] CHC MED & PEDS 505 [place], [place] [phone] Tessa Cox, MARITA 505 [place], [place] [phone] documented as of this encounter Visit Diagnoses Not on filedocumented in this encounter Care Teams Monogram And Letter Paster Relationship Specialty Start Date End Date Handy Elias MD 505 [place], [place] [phone] PCP - General Internal Medicine 11/17/12 [facility] 12/19/24 documented as of this encounter
--- OUTSIDE RECORDS SUMMARY | 2025-02-16 17:06 | XMS_ITS | Encounter Summary ---
Author Organization [employer] Address [address] [place] [address] [place] [address] Care Team Providers Care Sprinkling System Irrigator Name Role Phone Handy Elias MD Primary Care Provider [phone]- [phone] Encounter Details Date Type Department Care Team (Late st Contact Info) Description 07/16/2022 Orders Only [facility] MED & PEDS 505 [place] [address] Nataliia Santos LPN Social History Tobacco Use [...] Info) Description 03/01/2025 1:00 PM EST Telemedicine [facility] MED & PEDS 505 [place] [address] Tessa Cox, MARITA 505 [place] [address] documented as of this encounter Visit Diagnoses Not on filedocumented in this encounter Care Teams Sprinkling System Irrigator Relationship Specialty Start Date End Date Handy Elias MD 505 [place] [address] PCP - General Internal Medicine 11/17/12 [facility] Home Health Services 12/19/24 documented as of this encounter
--- OUTSIDE RECORDS SUMMARY | 2025-02-16 17:06 | XMS_ITS | Encounter Summary ---
Author Organization [employer] Address [address] [facility] 7 [place] [address] Care Team Providers Care Vice President Quality Improvement Name Role Phone Handy Elias MD Primary Care Provider [phone]- [phone] Reason for Visit * Reason Onset Date Comments Med Refill 06/12/2022 Encounter Details Date Type Department Care Team (Late st Contact Info) Description 06/12/2022 Telephone [facility] MEDICINE 230 [place], [place] [phone] Handy Elias MD 505 [place], [place] [phone] Med Refill Social History Tobacco Use Types [...] Info) Description 03/01/2025 1:00 PM EST Telemedicine [facility] CHC MED & PEDS 505 [place] [address] Tessa Cox, RN 505 [place] [address] documented as of this encounter Visit Diagnoses Not on filedocumented in this encounter Care Teams Vice President Quality Improvement Relationship Specialty Start Date End Date Handy Elias MD 505 [place] [address] PCP - General Internal Medicine 11/17/12 [facility] Health Services 12/19/24 documented as of this encounter
--- OUTSIDE RECORDS SUMMARY | 2025-02-16 17:06 | XMS_ITS | Encounter Summary ---
Author Organization [employer] Address [address] [place] [address] 7 [place] [address] Care Team Providers Care Sheet Metal Shop Foreman Name Role Phone Handy Elias MD Primary Care Provider [phone] Reason for Visit * Reason Comments Med Refill Encounter Details Date Type Department Care Team ([facility] st Contact Info) Description 06/18/2024 Refill [facility] CHC MED & PEDS 505 [place], [place] [phone] Handy Elias MD 505 [place], [place] [phone] Primary insomnia Social History Tobacco Use Types [...] Upcoming Encounters Date Type Department Care Team ([facility] st Contact Info) Description 03/01/2025 1:00 PM EST Telemedicine [facility] CHC MED & PEDS 505 [place] [address] Tessa Cox, MARITA 505 [place] [address] documented as of this encounter Visit Diagnoses Diagnosis Primary insomnia Persistent disorder of initiating or maintaining sleep documented in this encounter Additional Health Concerns Assessment Noted Time PHQ-9 Depression Total Score: 2 05/09/19 25 2:07 PM EDT documented as of this encounter Care Teams Sheet Metal Shop Foreman Relationship Specialty Start Date End Date Handy Elias MD 505 [place] [address] PCP - General Internal Medicine 11/17/12 [facility] 12/19/24 documented as of this encounter
--- OUTSIDE RECORDS SUMMARY | 2025-02-16 17:06 | XMS_ITS | Encounter Summary ---
Author Organization [employer] Address [address] [facility] 7 [place] [address] Care Team Providers Care Sports Analyst Name Role Phone Handy Elias MD Primary Care Provider +1- [phone] Reason for Visit * Reason Onset Date Comments Med Refill 01/14/2024 Encounter Details Date Type Department Care Team ([facility] st Contact Info) Description 01/14/2024 Telephone [facility] MEDICINE 230 [place] [address] Handy Elias MD 505 [place], [place] [phone] Med Refill Social History Tobacco Use Types [...] immediate release tablet To be sent to: [facility]/pharmacy #[id number] - [place] - [address] [place] [address] AT [address], [facility] [facility] documented in this encounter Plan of Treatment Upcoming Encounters Date Type Department Care Team (Late st Contact Info) Description 03/01/2025 1:00 PM EST Telemedicine [facility] MED & PEDS 505 [place] [address] Tessa Cox RN 505 [place] [address] documented as of this encounter Visit Diagnoses Not on filedocumented in this encounter Care Teams Sports Analyst Relationship Specialty Start Date End Date Handy Elias MD 505 [place] [address] PCP - General Internal Medicine 11/17/12 [facility] Home [facility] Services 12/19/24 documented as of this encounter
--- OUTSIDE RECORDS SUMMARY | 2025-02-16 17:06 | XMS_ITS | Encounter Summary ---
Author Organization [employer] Address [address] [facility] 7 [place] [address] Care Team Providers Care Conventional Underwriter Name Role Phone Handy Elias MD Primary Care Provider +1- [phone] Reason for Visit * Reason Onset Date Comments Med Refill 02/10/2025 Encounter Details Date Type Department Care Team ([facility] st Contact Info) Description 02/10/2025 Telephone [facility] MEDICINE 230 [place], [place] [phone] Handy Elias MD 505 [place], [place] [phone] Med Refill Social History Tobacco Use Types [...] * Telephone Encounter - Shagufta Oconnell - 02/10/2025 2:07 PM EST TC from pt requesting medication refill. Medications needing refill : - oxyCODONE (Roxicodone) 5 MG immediate release tablet To be sent to: - [facility]/pharmacy #[id number] - [place], [place] - [address] [place] [address] AT [address], [place] [address] documented in this encounter Plan of Treatment Upcoming Encounters Date Type Department Care Team (Late st Contact Info) Description 03/01/2025 1:00 PM EST Telemedicine [facility] CHC MED & PEDS 505 [place] [address] Tessa Cox RN 505 [place] [address] documented as of this encounter Visit Diagnoses Not on filedocumented in this encounter Additional Health Concerns Assessment Noted Time PHQ-9 Depression Total Score: 2 05/09/19 25 2:07 PM EDT documented as of this encounter Care Teams Conventional Underwriter Relationship Specialty Start Date End Date Handy Elias MD 505 [place] [address] PCP - General Internal Medicine 11/17/12 [facility] 12/19/24 documented as of this encounter
--- OUTSIDE RECORDS SUMMARY | 2025-02-16 17:06 | XMS_ITS | Encounter Summary ---
Author Organization [employer] Address [address] [place] [address] 7 [place] [address] Care Team Providers Care Fax Machine Repairer Name Role Phone Handy Elias MD Primary Care Provider +1- [phone] Encounter Details Date Type Department Care Team ([facility] st Contact Info) Description 02/09/2025 Results Follow-Up [facility] CHC MED & PEDS 505 [place], [place] [phone] Handy Elias MD 505 [place], [place] [phone] CBC auto differential, Basic Metabolic Panel, XR Lumbar Spine Complete 4+ Views Social History Tobacco Use Types Packs/Day Years [...] encounter Miscellaneous Notes * Telephone Encounter - April Shultz RN - 02/11/2025 1:53 PM EST TC to pt and informed of results and recommendations. * Telephone Encounter - April Shultz RN - 02/11/2025 1:52 PM EST ----- Message from Handy Elias MD sent at 02/10/2025 10:31 AM EST ----- Please call. The xray shows a left third rib fracture of indeterminate age. Lidocaine patches mighthelp. I will write the scripts. ----- Message ----- From: Aminta, Ris Results In Sent: 02/10/2025 7:17 AM EST To: Handy Elias MD * Result Encounter Note - Handy Elias MD - 02/10/2025 10:31 AM EST Please call. The xray shows a left third rib fracture of indeterminate age. Lidocaine patches mighthelp. I will write the scripts. * Result Encounter Note - Handy Elias MD - 02/09/2025 7:36 PM EST Please call for a status check. Some blood work was noted as per the chart during a telemedicine visit. It's unclear why tests were done today. Multiple abnormalities were noted. Please find out if pt received any feedback regarding these findings. documented in this encounter Plan of Treatment Upcoming Encounters Date Type Department Care Team (Late st Contact Info) Description 03/01/2025 1:00 PM EST Telemedicine [facility] MED & PEDS 505 [place] [address] Tessa Cox, RN 505 [place] [address] documented as of this encounter Visit Diagnoses Not on filedocumented in this encounter Additional Health Concerns Assessment Noted Time PHQ-9 Depression Total Score: 2 05/09/19 25 2:07 PM EDT documented as of this encounter Care Teams Fax Machine Repairer Relationship Specialty Start Date End Date Handy Elias MD 505 [place] [address] PCP - General Internal Medicine 11/17/12 [facility] 12/19/24 documented as of this encounter
--- OUTSIDE RECORDS SUMMARY | 2025-02-16 17:06 | XMS_ITS | Encounter Summary ---
Author Organization [employer] Address [address] [facility] 7 [place] [address] Care Team Providers Care International Freight Forwarder Name Role Phone Handy Elias MD Primary Care Provider +1- [phone] Reason for Visit * Reason Onset Date Comments FYI 01/05/2025 Encounter Details Date Type Department Care Team ([facility] st Contact Info) Description 01/05/2025 Telephone [facility] MEDICINE 230 [place], [place] [phone] Handy Elias MD 505 [place], [place] [phone] FYI Social History Tobacco Use Types Packs/Day [...] are any inconveniences, please contact Kathleen at [phone] documented in this encounter Plan of Treatment Upcoming Encounters Date Type Department Care Team (Late st Contact Info) Description 03/01/2025 1:00 PM EST Telemedicine [facility] MED & PEDS 505 [place] [address] Tessa Cox RN 505 [place] [address] documented as of this encounter Visit Diagnoses Not on filedocumented in this encounter Additional Health Concerns Assessment Noted Time PHQ-9 Depression Total Score: 2 05/09/19 2:07 PM EDT documented as of this encounter Care Teams International Freight Forwarder Relationship Specialty Start Date End Date Handy Elias MD 505 [place] [address] PCP - General Internal Medicine 11/17/12 [facility] Services 12/19/24 documented as of this encounter
--- OUTSIDE RECORDS SUMMARY | 2025-02-16 17:06 | XMS_ITS | Encounter Summary ---
Author Organization [employer] Address [address] [place] [address] [place] [address] Care Team Providers Care Subpoena Server Name Role Phone Handy Elias MD Primary Care Provider +1- [phone] Reason for Referral * Medications - Closed Specialty Diagnoses / Procedures Referred By Maurice t Referred To Contact Diagnoses Rib pain on left side Handy Elias MD 505 [place] [address] Phone: tel: fax: Referral ID Status Reason Start Date Expiration Date Visits Re quested Visits Authorized [id number] Closed 1 1 Encounter Details Date Type Department Care Team ([facility] st Contact Info) Description 02/01/2025 Orders Only [facility] CHC MED & PEDS 505 [place] [address] Handy Elias MD 505 [place], [place] [phone] Fall, initial encounter (Primary Dx); Rib pain [...] your housing situation today? I have nancy arevaol 08/07/[address] you li [...] [facility] 505 [place] [address] Tessa Cox, RN 505 [place] [address] documented as of this encounter Procedures Procedure Name Priority Date/Time Associated Diagnosis Comments XR RIBS 3 VIEWS LEFT W CHEST Routine 02/09/2025 3:22 PM EST documented in this encounter Results * XR Ribs 3 Views Left w/ Chest (02/09/2025 3:22 PM EST) Anatomical Region Laterality Modality Radiographic Ame ging 02/09/2025 3:22 PM EST Narrative 02/10/2025 7:14 AM EST [facility] [address] [place] [address] [place] [address] XRay Report Signed Patient: Henri Espino MR#: [id number] [birth year] : 1960 Acct:[id number] Age/Sex: 65 / M ADM Date: 02/09/25 Loc: HO.HMGCX Attending Dr: Handy Elias MD Ordering Physician: Handy Elias MD Date of Service: 02/09/25 Procedure(s): XR ribs LT min 3V w CXR1V Accession Number(s): [id number] cc: Handy Elias MD Reason for Exam: , FALL EXAMINATION: XR RIBS 3 VIEWS MINIMUM WITH CHEST LEFT HISTORY: FALL COMPARISON: Comparison is made to the prior examination of the chest dated 09/04/2024. FINDINGS: A single PA view of the chest and 3 views of the left ribs are submitted. The lungs are expanded and clear. There is no pleural effusion, pneumothorax, or pulmonary vascular congestion in size. There is degenerative disc disease of the spine. There is a fracture deformity of the 3rd rib, of indeterminate age. XR/XR ribs LT min 3V w CXR1V IMPRESSION: Fracture deformity of the left 3rd rib, of indeterminate age. No acute cardiopulmonary abnormality. Electronically signed by: Brian Yost MD 02/10/2025 07:11 AM EST Dictated By: Brian Yost MD Signed By: <Electronically signed by Brian Yost MD in OV> 02/10/25 0711 DD/ 1522 TD/TT: 02/09/25 1533 Quality Analyst: Procedure Note Donotuseinterpreter, Image - 02/10/2025 [facility] [place] [address] [place] [address] [place] [address] XRay Report Signed Patient: Henri Espino FMR#: [id number] [birth year] : 8Acct:[id number] Age/Sex: 65 / MADM Date: 02/09/25 Loc: HO.HMGCX Attending Dr: Handy Elias MD Ordering Physician: Handy Elias MD Date of Service: 02/09/25 Procedure(s): XR ribs LT min 3V w CXR1V Accession Number(s): [id number] cc: Handy Elias MD Reason for Exam: , FALL EXAMINATION: XR RIBS 3 VIEWS MINIMUM WITH CHEST LEFT HISTORY: FALL COMPARISON: Comparison is made to the prior examination of the chest dated 09/04/2024. FINDINGS: A single PA view of the chest and 3 views of the left ribs are submitted. The lungs are expanded and clear. There is no pleural effusion, pneumothorax, or pulmonary vascular congestion in size. There is degenerative disc disease of the spine. There is a fracture deformity of the 3rd rib, of indeterminate age. XR/XR ribs LT min 3V w CXR1V IMPRESSION: Fracture deformity of the left 3rd rib, of indeterminate age. No acute cardiopulmonary abnormality. Electronically signed by: Brian Yost MD 02/10/2025 07:11 AM EST Dictated By: Brian Yost MD Signed By: <Electronically signed by Brian Yost MD in OV> 02/10/25 0711 DD/ 1522 TD/TT: 02/09/25 1533 Quality Analyst: Handy Elias MD IMG XR PROCEDURES Final Res ult documented in this encounter Visit Diagnoses Diagnosis Fall, initial encounter- Primary Rib pain on left side documented in this encounter Additional Health Concerns Assessment Noted Time PHQ-9 Depression Total Score: 2 05/09/19 25 2:07 PM EDT documented as of this encounter Care Teams Subpoena Server Relationship Specialty Start Date End Date Handy Elias MD [address] [place] [address] PCP - General Internal Medicine 11/17/12 [facility] Home Health Services 12/19/24 documented as of this encounter
--- OUTSIDE RECORDS SUMMARY | 2025-02-16 17:06 | XMS_ITS | Encounter Summary ---
Author Organization [employer] Address [address] [place] [address] 7 [place] [address] Care Team Providers Care Dental Mold Maker Name Role Phone Handy Elias MD Primary Care Provider +1 [phone] Encounter Details Date Type Department Care Team ([facility] Contact Info) Description 03/14/2023 Orders Only [facility] MED & PEDS 505 [place], [place] [phone] Handy Elias MD 505 [place], [place] [phone] Chronic pain syndrome; Primary insomnia Social History [...] Info) Description 03/01/2025 1:00 PM EST Telemedicine [facility] MED & PEDS [address] [place], [place] [phone] Tessa Cox, MARITA 505 [place], [place] [phone] documented as of this encounter Visit Diagnoses Diagnosis Chronic pain syndrome Primary insomnia Persistent disorder of initiating or maintaining sleep documented in this encounter Care Teams Dental Mold Maker Relationship Specialty Start Date End Date Handy Elias MD [address] [place] [address] PCP - General Internal Medicine 11/17/12 [facility] 12/19/24 documented as of this encounter
--- OUTSIDE RECORDS SUMMARY | 2025-02-16 17:06 | XMS_ITS | Encounter Summary ---
Author Organization [employer] Address [address] [facility] 7 [place] [address] Care Team Providers Care Multifocal Lens Inspector Name Role Phone Handy Elias MD Primary Care Provider +1- [phone] Reason for Visit * Reason Onset Date Comments chart prep 02/15/2025 Encounter Details Date Type Department Care Team ([facility] Contact Info) Description 02/15/2025 Telephone [facility] CHC MED & PEDS 505 [place], [place] [phone] Handy Elias MD 505 [place], [place] [phone] chart prep Social History Tobacco Use Types Packs/Day Years [...] encounter Miscellaneous Notes * Telephone Encounter - Cherry Carrasco MA - 02/15/2025 4:49 PM EST Chart Prep Labs: done Images: done Referrals: not applicable Vaccines due: Covid, Flu, Hep B, and Hep A Screenings: colonoscopy Overdue care gaps: Not applicable documented in this encounter Plan of Treatment Upcoming Encounters Date Type Department Care Team (Late st Contact Info) Description 03/01/2025 1:00 PM EST Telemedicine [facility] MED & PEDS 505 [place] [address] Tessa Cox RN 505 [place] [address] documented as of this encounter Visit Diagnoses Not on filedocumented in this encounter Additional Health Concerns Assessment Noted Time PHQ-9 Depression Total Score: 2 05/09/19 25 2:07 PM EDT documented as of this encounter Care Teams Multifocal Lens Inspector Relationship Specialty Start Date End Date Handy Elias MD 505 [place] [address] PCP - General Internal Medicine 11[facility]17[facility]12 [facility] 12/19/24 documented as of this encounter
--- OUTSIDE RECORDS SUMMARY | 2025-02-16 17:06 | XMS_ITS | Encounter Summary ---
Author Organization [facility] Address [address] [facility] 7 [place] [address] Care Team Providers Care Cannoneer Name Role Phone Handy Elias MD Primary Care Provider [phone]- [phone] Reason for Visit * Reason Onset Date Comments Med Refill 06/02/2024 Encounter Details Date Type Department Care Team (Late st Contact Info) Description 06/02/2024 Telephone [facility] MEDICINE [address] [place], [place] [phone] Handy Elias MD [address] [place], [place] [phone] Med Refill Social History Tobacco Use Types [...] immediate release tablet To be sent to: [id number] - [place], [place] - [address] [place] [address] AT [address], [place] [address] documented in this encounter Plan of Treatment Upcoming Encounters Date Type Department Care Team (Late st Contact Info) Description 03/01/2025 1:00 PM EST Telemedicine [facility] MED & PEDS [address] [place] [address] Tessa Cox, MARITA [address] [place] [address] documented as of this encounter Visit Diagnoses Not on filedocumented in this encounter Additional Health Concerns Assessment Noted Time PHQ-9 Depression Total Score: 2 05/09/19 25 2:07 PM EDT documented as of this encounter Care Teams Cannoneer Relationship Specialty Start Date End Date Handy Elias MD [address] [place] [address] PCP - General Internal Medicine 11/17[facility]12 [facility]24 documented as of this encounter
--- OUTSIDE RECORDS SUMMARY | 2025-02-16 17:06 | XMS_ITS | Encounter Summary ---
Author Organization [facility] Address [address] [facility] 7 [place] [address] Care Team Providers Care Load Haul Dump Operator Name Role Phone Handy Elias MD Primary Care Provider [phone]- [phone] Reason for Visit * Reason Onset Date Comments Med Refill 11/16/2024 Encounter Details Date Type Department Care Team ([facility] st Contact Info) Description 11/16/2024 Refill [facility] CHC MED & PEDS [address] [place], [place] [phone] Handy Elias MD [address] [place], [place] [phone] Primary insomnia Social History Tobacco Use Types [...] Upcoming Encounters Date Type Department Care Team ([facility] st Contact Info) Description 03/01/2025 1:00 PM EST Telemedicine [facility] MED & PEDS [address] [place] [address] Tessa Cox RN [address] [place] [address] documented as of this encounter Visit Diagnoses Diagnosis Primary insomnia Persistent disorder of initiating or maintaining sleep documented in this encounter Additional Health Concerns Assessment Noted Time PHQ-9 Depression Total Score: 2 05/09/19 25 2:07 PM EDT documented as of this encounter Care Teams Load Haul Dump Operator Relationship Specialty Start Date End Date Handy Elias MD [address] [place] [address] PCP - General Internal Medicine 11/17/12 [facility] 12/19/24 documented as of this encounter
--- OUTSIDE RECORDS SUMMARY | 2025-02-16 17:06 | XMS_ITS | Encounter Summary ---
Author Organization [facility] Address [address] [place] [address] Phone Care Team Providers Care Traffic And Transport Planner Name Role Phone Handy Elias MD Primary Care Provider [phone] Encounter Details Date Type Department Care Team (Late st Contact Info) Description 2022 Telephone [facility] [address] [place] [address] Christie Leone Social History Tobacco [...] on filedocumented in this encounter Care Teams Traffic And Transport Planner Relationship Specialty Start Date End Date Handy Elias MD PCP - General Internal Medicine 10/19/20 documented as of this encounter
--- OUTSIDE RECORDS SUMMARY | 2025-02-16 17:06 | XMS_ITS | Encounter Summary ---
Author Organization [facility] Address [address] [facility] 7 [place] [address] Care Team Providers Care Bag Filler Name Role Phone Handy Elias MD Primary Care Provider [phone]- [phone] Reason for Visit * Reason Onset Date Comments Hospital Follow-up 01/06/2025 Encounter Details Date Type Department Care Team (Late st Contact Info) Description 01/06/2025 Telephone [facility] MEDICINE [address] [place] [address] Handy Elias MD [address] [place], [place] [phone] Hospital Follow-up Social History Tobacco Use Types [...] appointment from 01/06 Please contact pt at [phone] documented in this encounter Plan of Treatment Upcoming Encounters Date Type Department Care Team (Late st Contact Info) Description 03/01/2025 1:00 PM EST Telemedicine [facility] MED & PEDS [address] [place] [address] Tessa Cox RN [address] [place] [address] documented as of this encounter Visit Diagnoses Not on filedocumented in this encounter Additional Health Concerns Assessment Noted Time PHQ-9 Depression Total Score: 2 05/09/19 25 2:07 PM EDT documented as of this encounter Care Teams Bag Filler Relationship Specialty Start Date End Date Hnady Elias MD [address] [place] [address] PCP - General Internal Medicine 11/17/12 [facility] 12/19/24 documented as of this encounter
--- OUTSIDE RECORDS SUMMARY | 2025-02-16 17:06 | XMS_ITS | Encounter Summary ---
Author Organization [employer] Address [address] [facility] 7 [place] [address] Care Team Providers Care Real Estate Inspector Name Role Phone Handy Elias MD Primary Care Provider [phone]- [phone] Reason for Visit * Reason Onset Date Comments Reschedule 04/01/2023 Encounter Details Date Type Department Care Team (Late st Contact Info) Description 04/01/2023 Telephone [facility] MEDICINE [address] [place], [place] [phone] Handy Elias MD [address] [place] [address] Reschedule Social History Tobacco Use Types Packs/Day [...] Tc from Josefina requesting r/s 04/04/2023 appt, appeals writer attempted to schedule no availability. documented in this encounter Plan of Treatment Upcoming Encounters Date Type Department Care Team (Late Contact Info) Description 03/01/2025 1:00 PM EST Telemedicine [facility] MED & PEDS [address] [place] [address] Tessa Cox, MARITA [address] [place], [place] [phone] documented as of this encounter Visit Diagnoses Not on filedocumented in this encounter Care Teams Real Estate Inspector Relationship Specialty Start Date End Date Handy Elias MD [address] [place] [address] PCP - General Internal Medicine 11/17/12 [facility] 12/19/24 documented as of this encounter
--- OUTSIDE RECORDS SUMMARY | 2025-02-16 17:06 | XMS_ITS | Clinical Summary ---
Author Organization [address] Address [address] [place] [address] Phone Care Team Providers Care Staff Services Manager Name Role Phone Handy Elias MD Primary Care Provider [phone] [phone] Encounters Date Type Department Care Team Description 12/18/2024 Lab Requisition [facility] Main Lab [address] [place] [address] Sonya Real PA Other halfway (current) drug therapy 12/17/[address] [facility] Lab [address] [place] [address] Sonya Real PA Encounter for other general examination 12/16/[address] [facility] Lab [address] [place] [address] Sonya Real PA 12/16/[address] [facility] Lab [address] [place] [address] Sonya Real PA Other halfway (current) drug therapy 12/13/[address] [facility] Lab [address] [place] [address] Sonya Real PA Encounter for other general examination 12/08/2024 Lab Requisition [facility] Main Lab [address] [place] [address] Sonya Real PA Encounter for other general examination 12/05/[address] [facility] Lab [address] [place] [address] Sonya Real PA Encounter for other general examination 12/03/2024 Lab Requisition [facility] Main Lab [address] [place] [address] Bradley Valdes MD Encounter for other general examination 12/02/2024 Lab Requisition [facility] Main Lab [address] [place] [address] Lukas Sheppard PA Encounter for other general examination from [...] WAM Routine 12/18/2024 6:10 AM EDT Other halfway (current) drug therapy CBC WITH AUTO DIFFERENTIAL Routine 12/18/2024 6:10 AM EDT Other halfway (current) drug therapy CBC AND DIFFERENTIAL Routine 12/18/2024 6:10 AM EDT Other halfway (current) drug therapy BUTLER URINE CULTURE TUBE [...] COUNT Routine 12/16/2024 4:45 AM EDT Other halfway (current) drug therapy THYROID STIMULATING HORMONE Routine 12/16/2024 4:45 AM EDT Other watermelon inspector (current) drug therapy COMPREHENSIVE METABOLIC PANEL Routine 12/16/2024 4:45 AM EDT Other watermelon inspector (current) drug therapy COMPREHENSIVE METABOLIC PANEL Routine [...] 6:10 AM EDT) Only the most recent of3 resultswithin the time period is included. Neutrophils % 61.0 % LAB HEMETOLOGY METHOD 12/18/2024 11:45 AM EDT [facility] Lymphocytes % 26.0 % LAB HEMETOLOGY METHOD 12/18/2024 11:45 AM EDT [facility] Monocytes % 10.0 % LAB HEMETOLOGY METHOD 12/18/2024 11:45 AM T [facility] Eosinophils % 1.0 % LAB HEMETOLOGY METHOD 12/18/2024 11:45 AM T [facility] Basophils % 1.0 % LAB HEMETOLOGY METHOD 12/18/2024 11:45 AM EDT [facility] Myelocytes % 1.0(H) % LAB HEMETOLOGY METHOD 12/18/2024 11:45 AM T [facility] Neutrophils Absolute Manual 7.26(H) 1.50 - 7.00 K/mcL LAB HEMETOLOGY METHOD 12/18/2024 11:45 AM EDT [facility] Lymphocytes Absolute 3.09 1.00 - 5.00 K/mcL LAB HEMETOLOGY METHOD 12/18/2024 11:45 AM EDT [facility] Monocytes Absolute Manual 1.19(H) 0.20 - 1.00 K/mcL LAB HEMETOLOGY METHOD 12/18/2024 11:45 AM EDT [facility] Eosinophils Absolute Manual 0.12 0.00 - 0.50 K/[facility] LAB HEMETOLOGY METHOD 12/18/2024 11:45 AM EDT [facility] Basophils Absolute Manual 0.12 0.00 - 0.20 K/mcL LAB HEMETOLOGY METHOD 12/18/2024 11:45 AM EDT [facility] Myelocytes Absolute Manual 0.12(H) 0.00 - 0.00 K/mcL LAB HEMETOLOGY METHOD 12/18/2024 11:45 AM EDT [facility] Rbc Morphology Consistent with indices Consistent with indices, Normal for LAB HEMETOLOGY METHOD 12/18/2024 11:45 AM EDT [facility] Platelet Morphology - WAM See Note(A) Normal LAB HEMETOLOGY METHOD 12/18/2024 11:45 AM EDT [facility] Comment:PLT: Large platelets seen Blood Venous blood specimen / Unknown Venipuncture / Unknown 12/18/2024 6:10 AM EDT 12/18/2024 10:13 AM EDT us Sonya BRUMFIELD LAB BLOOD ORDERABLES Final Re sult [facility] [address] [place] [address], * (ABNORMAL) CBC auto differential (12/18/2024 6:10 AM EDT) Only the most recent of3 resultswithin the time period is included. WBC 11.9(H) 4.8 - 10.8 K/mcL LAB HEMETOLOGY METHOD 12/18/2024 11:45 AM [facility] RBC 3.40(L) 4.50 - 5.50 M/mcL LAB HEMETOLOGY METHOD 12/18/2024 11:45 AM [facility] Hemoglobin 10.2(L) 13.5 - 17.5 g/dL LAB HEMETOLOGY METHOD 12/18/2024 11:45 AM [facility] Hematocrit 32.5(L) 42.0 - 54.0 % LAB HEMETOLOGY METHOD 12/18/2024 11:45 AM [facility] MCV 96.2 79.0 - 98.0 FL LAB HEMETOLOGY METHOD 12/18/2024 11:45 AM [facility] MCH 30.2 27.0 - 32.0 pcg LAB HEMETOLOGY METHOD 12/18/2024 11:45 AM [facility] MCHC 31.4(L) 32.0 - 37.0 g/dL LAB HEMETOLOGY METHOD 12/18/2024 11:45 AM [facility] RDW 15.5(H) 11.0 - 15.0 % LAB HEMETOLOGY METHOD 12/18/2024 11:45 AM [facility] Platelets 538(H) 130 - 400 K/[facility] LAB HEMETOLOGY METHOD 12/18/2024 11:45 AM [facility] MPV 10.4 7.0 - 11.0 FL LAB HEMETOLOGY METHOD 12/18/2024 11:45 AM [facility] NRBC 0.0 <1.0 % LAB HEMETOLOGY METHOD 12/18/2024 11:45 AM [facility] NRBC Absolute 0.00 <0.10 K/[facility] LAB HEMETOLOGY METHOD 12/18/2024 11:45 AM [facility] Blood Venous blood specimen / Unknown Venipuncture / Unknown 12/18/2024 6:10 AM EDT 12/18/2024 10:13 AM EDT us Sonya BRUMFIELD LAB BLOOD ORDERABLES Final Re sult [facility] [address] [place] [address], [place] [phone] * (ABNORMAL) Urinalysis with reflex microscopic and culture (12/16/2024 11:10 PM EDT) Specific [place] Urine 1.015 1.003 - 1.030 LAB URINALYSIS - AUTOMATED METHOD 12/17/2024 6:52 AM [facility] pH, Urine 6.0 5.0 - 8.0 pH LAB URINALYSIS - AUTOMATED METHOD 12/17/2024 6:52 AM [facility] Leukocytes, Urine Trace(A) Negative LAB URINALYSIS - AUTOMATED METHOD 12/17/2024 6:52 AM [facility] Nitrite, Urine Negative Negative LAB URINALYSIS - AUTOMATED METHOD 12/17/2024 6:52 AM [facility] Protein, Urine Trace <=Trace mg/dL LAB URINALYSIS - AUTOMATED METHOD 12/17/2024 6:52 AM [facility] Glucose, Urine Negative Negative mg/dL LAB URINALYSIS - AUTOMATED METHOD 12/17/2024 6:52 AM [facility] Ketones, Urine Trace(A) Negative mg/dL LAB URINALYSIS - AUTOMATED METHOD 12/17/2024 6:52 AM [facility] Urobilinogen, Urine 0.2 0.2 - 1.0 mg/dL LAB URINALYSIS - AUTOMATED METHOD 12/17/2024 6:52 AM [facility] Bilirubin, Urine Negative Negative LAB URINALYSIS - AUTOMATED METHOD 12/17/2024 6:52 AM EDT [facility] Blood, Urine Negative Negative LAB URINALYSIS - AUTOMATED METHOD 12/17/2024 6:52 AM [facility] RBC, Urine 3.7 0 - 4 /HPF LAB URINALYSIS - AUTOMATED METHOD 12/17/2024 6:52 AM EDT [facility] WBC, Urine 1.5 0 - 4 /HPF LAB URINALYSIS - AUTOMATED METHOD 12/17/2024 6:52 AM EDT [facility] Squamous Epithelial, Urine 17 0 - 60 /LPF LAB URINALYSIS - AUTOMATED METHOD 12/17/2024 6:52 AM [facility] Bacteria, Urine Negative Negative /HPF LAB URINALYSIS - AUTOMATED METHOD 12/17/2024 6:52 AM [facility] Hyaline Casts, Urine 4.4(H) 0 - 3 /LPF LAB URINALYSIS - AUTOMATED METHOD 12/17/2024 6:52 AM [facility] Urine Urine specimen obtained by clean catch procedure / Unknown 12/16/2024 11:10 PM EDT 12/17/2024 6:35 AM EDT us Sonya BRUMFIELD LAB URINE ORDERABLES Final Re sult [facility] [address] [place] [address], * Butler urine culture tube (12/16/2024 11:10 PM EDT) Extra Tube Hold for add-ons. 12/17/2024 8:01 AM EDT [facility] Comment:Auto resulted. Urine Urine specimen obtained by clean catch procedure / Unknown 12/16/2024 11:10 PM EDT 12/17/2024 6:35 AM EDT Sonya BRUMFIELD LAB URINE ORDERABLES Final Re sult [facility] [address] [place] [address], [place] [phone] * Culture urine (12/16/2024 11:10 PM EDT) [facility] Culture, Urine No growth 12/18/2024 8:28 AM EDT [facility] Urine Urine specimen obtained by clean catch procedure / Unknown 12/16/2024 11:10 PM EDT 12/17/2024 6:51 AM EDT Sonya BRUMFIELD LAB MICROBIOLOGY - GENERAL OR DERABLES Final Result Performing Organization Address [facility]/ZIP Co de Phone Number [facility] [address] [place] [address], [place] [phone] * (ABNORMAL) Complete blood count (12/16/2024 4:45 AM EDT) Only the most recent of4 resultswithin the time period is included. [facility] WBC 12.9(H) 4.8 - 10.8 K/[facility] LAB HEMETOLOGY METHOD 12/16/2024 9:28 AM EDT [facility] RBC 3.40(L) 4.50 - 5.50 /[facility] LAB HEMETOLOGY METHOD 12/16/2024 9:28 AM EDT [facility] Hemoglobin 10.1(L) 13.5 - 17.5 g/dL LAB HEMETOLOGY METHOD 12/16/2024 9:28 AM EDT [facility] Hematocrit 33.1(L) 42.0 - 54.0 % LAB HEMETOLOGY METHOD 12/16/2024 9:28 AM EDT [facility] MCV 97.4 79.0 - 98.0 FL LAB HEMETOLOGY METHOD 12/16/2024 9:28 AM EDT [facility] MCH 29.7 27.0 - 32.0 pcg LAB HEMETOLOGY METHOD 12/16/2024 9:28 AM EDT [facility] MCHC 30.5(L) 32.0 - 37.0 g/dL LAB HEMETOLOGY METHOD 12/16/2024 9:28 AM EDT [facility] RDW 15.3(H) 11.0 - 15.0 % LAB HEMETOLOGY METHOD 12/16/2024 9:28 AM EDT [facility] Platelets 569(H) 130 - 400 K/mcL LAB HEMETOLOGY METHOD 12/16/2024 9:28 AM EDT [facility] MPV 10.7 7.0 - 11.0 FL LAB HEMETOLOGY METHOD 12/16/2024 9:28 AM EDT [facility] NRBC 0.0 <1.0 % LAB HEMETOLOGY METHOD 12/16/2024 9:28 AM EDT [facility] NRBC Absolute 0.00 <0.10 K/mcL LAB HEMETOLOGY METHOD 12/16/2024 9:28 AM EDT [facility] Blood Venous blood specimen / Unknown Venipuncture / Unknown 12/16/2024 4:45 AM EDT 12/16/2024 8:37 AM EDT us Sonya BRUMFIELD LAB BLOOD ORDERABLES Final Re sult [facility] [address] [place] [address], * (ABNORMAL) Thyroid stimulating hormone (12/16/2024 4:45 AM EDT) TSH 10.89(H) 0.40 - 4.00 mcIU/mL LAB CHEMISTRY METHOD 12/16/2024 11:09 AM [facility] Blood Venous blood specimen / Unknown Venipuncture / Unknown 12/16/2024 4:45 AM EDT 12/16/2024 8:37 AM EDT us Sonya BRUMFIELD LAB BLOOD ORDERABLES Final Re sult [facility] [address] [place] [address], * (ABNORMAL) Comprehensive metabolic panel (12/16/2024 4:45 AM EDT) Only the most recent of5 resultswithin the time period is included. Sodium 136 133 - 145 mmol/L LAB CHEMISTRY METHOD 12/16/2024 10:09 AM [facility] Potassium 4.0 3.5 - 5.5 mmol/L LAB CHEMISTRY METHOD 12/16/2024 10:09 AM [facility] Chloride 103 96 - 110 mmol/L LAB CHEMISTRY METHOD 12/16/2024 10:09 AM [facility] CO2 23 21 - 32 mmol/L LAB CHEMISTRY METHOD 12/16/2024 10:09 AM [facility] Anion Gap 10 3 - 11 LAB CHEMISTRY METHOD 12/16/2024 10:09 AM [facility] Glucose 64(L) 70 - 100 mg/dL LAB CHEMISTRY METHOD 12/16/2024 10:09 AM [facility] BUN 13 5 - 25 mg/dL LAB CHEMISTRY METHOD 12/16/2024 10:09 AM [facility] Creatinine 1.36(H) 0.70 - 1.30 mg/dL LAB CHEMISTRY METHOD 12/16/2024 10:09 AM [facility] eGFR 57(L) >=60 mL/min/1. 73m2 LAB CHEMISTRY METHOD 12/16/2024 10:09 AM [facility] Comment:Calculation based on the Chronic Kidney Disease Epidemiology Collaboration (CKD-EPI) equation refit without adjustment for race. BUN/Creatinine Ratio 9.6 LAB CHEMISTRY METHOD 12/16/2024 10:09 AM [facility] Calcium 9.0 8.5 - 10.5 mg/dL LAB CHEMISTRY METHOD 12/16/2024 10:09 AM [facility] AST (SGOT) 21 10 - 42 unit/L LAB CHEMISTRY METHOD 12/16/2024 10:09 AM [facility] ALT (SGPT) 18 10 - 60 unit/L LAB CHEMISTRY METHOD 12/16/2024 10:09 AM [facility] Alkaline Phosphatase 74 42 - 121 unit/L LAB CHEMISTRY METHOD 12/16/2024 10:09 AM [facility] Total Protein 6.7 6.0 - 8.0 g/dL LAB CHEMISTRY METHOD 12/16/2024 10:09 AM [facility] Albumin 2.4(L) 3.2 - 5.0 g/dL LAB CHEMISTRY METHOD 12/16/2024 10:09 AM [facility] Total Bilirubin 0.4 0.0 - 1.4 mg/dL LAB CHEMISTRY METHOD 12/16/2024 10:09 AM [facility] Blood Venous blood specimen / Unknown Venipuncture / Unknown 12/16/2024 4:45 AM EDT 12/16/2024 8:37 AM EDT us Sonya BRUMFIELD LAB BLOOD ORDERABLES Final Re sult [facility] [address] [place] [address], * Vitamin B12 and folate (12/08/2024 5:04 AM EDT) Vitamin B-12 539 250 - 900 pcg/mL LAB CHEMISTRY METHOD 12/08/2024 12:01 PM EDT [facility] Folate 6.2 2.8 - 17.0 ng/ml LAB CHEMISTRY METHOD 12/08/2024 12:01 PM EDT [facility] Blood Venous blood specimen / Unknown Venipuncture / Unknown 12/08/2024 5:04 AM EDT 12/08/2024 9:52 AM EDT us Sonya BRUMFIELD LAB BLOOD ORDERABLES Final Re sult [facility] [address] [place] [address], [place] [phone] * (ABNORMAL) Iron and TIBC (12/08/2024 5:04 AM EDT) Iron 30(L) 50 - 160 mcg/dL LAB CHEMISTRY METHOD 12/08/2024 11:39 AM EDT [facility] TIBC 244(L) 250 - 450 mcg/dL LAB CHEMISTRY METHOD 12/08/2024 11:39 AM T [facility] Iron Saturation 12(L) 20 - 50 % LAB CHEMISTRY METHOD 12/08/2024 11:39 AM T [facility] Blood Venous blood specimen / Unknown Venipuncture / Unknown 12/08/2024 5:04 AM EDT 12/08/2024 9:52 AM EDT us Sonya BRUMFIELD LAB BLOOD ORDERABLES Final Re sult [facility] [address] [place] [address], [place] [phone] * Ferritin (12/08/2024 5:04 AM EDT) Ferritin 85 26 - 388 ng/mL LAB CHEMISTRY METHOD 12/08/2024 12:01 PM EDT [facility] Blood Venous blood specimen / Unknown Venipuncture / Unknown 12/08/2024 5:04 AM EDT 12/08/2024 9:52 AM EDT Sonya BRUMFIELD LAB BLOOD ORDERABLES Final Re sult [facility] [address] [place] [address], [place] [phone] * Magnesium (12/02/2024 4:46 AM EDT) Magnesium 2.0 1.9 - 2.6 mg/dL LAB CHEMISTRY METHOD 12/02/2024 12:53 PM EDT [facility] Blood Venous blood specimen / Unknown Venipuncture / Unknown 12/02/2024 4:46 AM EDT 12/02/2024 10:34 AM EDT Lukas BRUMFIELD LAB BLOOD ORDERABLES Final R esult Performing Organization Address [facility]/ZIP Co de Phone Number [facility] [address] [place] [address], [place] [phone] from Last 3 Months Insurance MEDICARE [facility] Care Teams Staff Services Manager Relationship Specialty Start Date End Date Handy Elias MD [address] [place] [address] PCP - General Internal Medicine 01/13/18
--- OUTSIDE RECORDS SUMMARY | 2025-02-16 17:06 | XMS_ITS | Encounter Summary ---
Author Organization [employer] Address [address] [facility] 7 [place] [address] Care Team Providers Care Manager Review Name Role Phone Handy Elias MD Primary Care Provider [phone]- [phone] Reason for Visit * Reason Onset Date Comments Prior Authorization 02/16/2025 Encounter Details Date Type Department Care Team ([facility] st Contact Info) Description 02/16/2025 Telephone [facility] MED [facility] PEDS [address] [place], [place] [phone] Handy Elias MD [address] [place] [address] Prior Authorization Social History Tobacco Use Types Packs/Day Years [...] encounter Miscellaneous Notes * Telephone Encounter - Demetria Horton LPN - 02/16/2025 10:19 AM EST PA generated for Lidocaine patches via CMM pending insurance decision. documented in this encounter Plan of Treatment Upcoming Encounters Date Type Department Care Team (Late st Contact Info) Description 03/01/2025 1:00 PM EST Telemedicine [facility] MED & PEDS [address] [place] [address] Tessa Cox, RN [address] [place] [address] documented as of this encounter Visit Diagnoses Not on filedocumented in this encounter Additional Health Concerns Assessment Noted Time PHQ-9 Depression Total Score: 2 05/09/19 2:07 PM EDT documented as of this encounter Care Teams Manager Review Relationship Specialty Start Date End Date Handy Elias MD [address] [place] [address] PCP - General Internal Medicine 11/17/12 [facility] 12/19/24 documented as of this encounter
--- OUTSIDE RECORDS SUMMARY | 2025-02-16 17:06 | XMS_ITS | Encounter Summary ---
Author Organization [employer] Address [address] [place] [address] Care Team Providers Care Diazo Technician Name Role Phone Handy Elias MD Primary Care Provider [phone] Encounter Details Date Type Department Care Team (Late st Contact Info) Description 05/11/2024 Orders Only [facility] MED & PEDS [address] [place], [place] [phone] Provider, MD Melanie Social History Tobacco Use [...] the past 12 months, has t he [employer], oil or water company threatened to shut [...] 03/01/2025 1:00 PM EST Telemedicine [facility] MED & PEDS [address] [place] [address] Tessa Cox RN [address] [place] [address] documented as of this encounter Procedures Procedure Name Priority Date/Time Associated Diagnosis Comments SURGICAL PATHOLOGY Routine 10/16/2021 8:57 AM EDT documented in this encounter Results * Surgical Pathology (10/16/2021 8:57 AM EDT) us Historical Provider LAB PATHOLOGY ORDERABLES Final Result documented in this encounter Visit Diagnoses Not on filedocumented in this encounter Additional Health Concerns Assessment Noted Time PHQ-9 Depression Total Score: 2 05/09/19 25 2:07 PM EDT documented as of this encounter Care Teams Diazo Technician Relationship Specialty Start Date End Date Handy Elias MD [address] [place] [address] PCP - General Internal Medicine 11/17/12 [facility] Home Health Services 12/19/24 documented as of this encounter
--- OUTSIDE RECORDS SUMMARY | 2025-02-16 17:06 | XMS_ITS | Encounter Summary ---
Author Organization [employer] Address [address] [place] [address] [place] [address] Care Team Providers Care Social Work Job Titles Name Role Phone Handy Elias MD Primary Care Provider [phone]- [phone] Reason for Visit * Reason Onset Date Comments Med Refill 02/13/2023 Encounter Details Date Type Department Care Team (Late st Contact Info) Description 02/13/2023 Telephone [facility] MEDICINE [address] [place], [place] [phone] Handy Elias MD [address] [place], [place] [phone] Med Refill Social History Tobacco Use Types [...] (Roxicodone) 5 MG immediate release tablet [facility]/pharmacy #[id number] - [place] - [address] [place] [address] AT [address] [facility] [address] documented in this encounter Plan of Treatment Upcoming Encounters Date Type Department Care Team ([facility] st Contact Info) Description 03/01/2025 1:00 PM EST Telemedicine [facility] MED & PEDS [address] [place] [address] Tessa Cox, RN [address] [place] [address] documented as of this encounter Visit Diagnoses Not on filedocumented in this encounter Care Teams Social Work Job Titles Relationship Specialty Start Date End Date Handy Elias MD [address] [place] [address] PCP - General Internal Medicine 11/17/12 [facility] 12/19/24 documented as of this encounter
--- OUTSIDE RECORDS SUMMARY | 2025-02-16 17:06 | XMS_ITS | Encounter Summary ---
Author Organization [employer] Address [address] [place] [address] Care Team Providers Care Senior Accounting Associate Name Role Phone Handy Elias MD Primary Care Provider [phone]- [phone] Reason for Visit * Reason Onset Date Comments Nurse Triage 01/13/2025 Encounter Details Date Type Department Care Team ([facility] st Contact Info) Description 01/13/2025 Telephone [facility] MEDICINE [address] [place], [place] [phone] Handy Elias MD [address] [place], [place] [phone] Nurse Triage Social History Tobacco Use Types [...] Weakness of the leg Please contact at [phone] Tc returned to pt spoke to pt [...] Weakness of the leg Please contact at [phone] documented in this encounter Plan of Treatment Upcoming Encounters Date Type Department Care Team ([facility] st Contact Info) Description 03/01/2025 1:00 PM EST Telemedicine [facility] MED & PEDS [address] [place] [address] Tessa Cox, MARITA [address] [place] [address] documented as of this encounter Visit Diagnoses Not on filedocumented in this encounter Additional Health Concerns Assessment Noted Time PHQ-9 Depression Total Score: 2 05/09/19 25 2:07 PM EDT documented as of this encounter Care Teams Senior Accounting Associate Relationship Specialty Start Date End Date Handy Elias MD [address] [place] [address] PCP - General Internal Medicine 11/17/12 [facility] 12/19/24 documented as of this encounter
--- OUTSIDE RECORDS SUMMARY | 2025-02-16 17:06 | XMS_ITS | Clinical Summary ---
Author Organization [facility] Address [address] [place] [address] Phone Care Team Providers Care Case Specialist Name Role Phone Handy Elias MD Primary Care Provider [phone]- [phone] Allergies Active Allergy Reactions Criticality Noted Date [...] 11/28/2019, 11/18/2017, Additional history exists [place] Care Teams Case Specialist Relationship Specialty Start Date End Date Handy Elias MD PCP - General Internal Medicine 10/19/20
--- OUTSIDE RECORDS SUMMARY | 2025-02-16 17:06 | XMS_ITS | Encounter Summary ---
Author Organization [employer] Address [address] [facility] 7 [place] [address] Care Team Providers Care Usability Specialist Name Role Phone Handy Elias MD Primary Care Provider [phone]- [phone] Reason for Visit * Reason Onset Date Comments Med Refill 01/14/2025 Encounter Details Date Type Department Care Team ([facility] st Contact Info) Description 01/14/2025 Refill [facility] CHC MED & PEDS [address] [place], [place] [phone] Handy Elias MD [address] [place], [place] [phone] Chronic pain syndrome (Primary Dx) Social History [...] of Oxycodone queued to PCP. Also schedules [employer] Televisit for 03/01/24 @1pm. * Telephone [...] oxyCODONE (Roxicodone) 5 MG immediate release tablet [[id number]] To be sent to: [facility]/pharmacy #[id number] - [place] - [address] [facility] AT [address], [address] [facility] [address] documented in this encounter Plan of Treatment Upcoming Encounters Date Type Department Care Team ([facility] st Contact Info) Description 03/01/2025 1:00 PM EST Telemedicine [facility] MED & PEDS [address] [place] [address] Tessa Cox, MARITA [address] [place] [address] documented as of this encounter Visit Diagnoses Diagnosis Chronic pain syndrome- Primary documented in this encounter Additional Health Concerns Assessment Noted Time PHQ-9 Depression Total Score: 2 05/09/19 2:07 PM EDT documented as of this encounter Care Teams Usability Specialist Relationship Specialty Start Date End Date Handy Elias MD [address] [place] [address] PCP - General Internal Medicine 11/17/12 [facility] Services 12/19/24 documented as of this encounter
--- OUTSIDE RECORDS SUMMARY | 2025-02-16 17:07 | XMS_ITS | Encounter Summary ---
Author Organization [facility] Address [address] [place] [address] Care Team Providers Care Criminal Psychologist Name Role Phone Handy Elias MD Primary Care Provider [phone] -[phone] Encounter Details Date Type Department Care Team (Late st Contact Info) Description 12/16/2024 Lab Requisition [facility] - Main Lab [address] 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 documented in this encounter Results * (ABNORMAL) Complete blood count (12/16/2024 4:45 AM EDT) [facility] Signature WBC 12.9(H) 4.8 - 10.8 K/mcL LAB HEMETOLOGY METHOD 12/16/2024 9:28 AM [facility] RBC 3.40(L) 4.50 - 5.50 M/mcL LAB HEMETOLOGY METHOD 12/16/2024 9:28 AM [facility] Hemoglobin 10.1(L) 13.5 - 17.5 g/dL LAB HEMETOLOGY METHOD 12/16/2024 9:28 AM [facility] Hematocrit 33.1(L) 42.0 - 54.0 % LAB HEMETOLOGY METHOD 12/16/2024 9:28 AM [facility] MCV 97.4 79.0 - 98.0 FL LAB HEMETOLOGY METHOD 12/16/2024 9:28 AM [facility] MCH 29.7 27.0 - 32.0 pcg LAB HEMETOLOGY METHOD 12/16/2024 9:28 AM [facility] LAB MCHC 30.5(L) 32.0 - 37.0 g/dL LAB HEMETOLOGY METHOD 12/16/2024 9:28 AM [facility] RDW 15.3(H) 11.0 - 15.0 % LAB HEMETOLOGY METHOD 12/16/2024 9:28 AM [facility] Platelets 569(H) 130 - 400 K/mcL LAB HEMETOLOGY METHOD 12/16/2024 9:28 AM [facility] MPV 10.7 7.0 - 11.0 FL LAB HEMETOLOGY METHOD 12/16/2024 9:28 AM [facility] LAB NRBC 0.0 <1.0 % LAB HEMETOLOGY METHOD 12/16/2024 9:28 AM [facility] LAB NRBC Absolute 0.00 <0.10 K/mcL LAB HEMETOLOGY METHOD 12/16/2024 9:[address] [facility] Blood Venous blood specimen / Unknown Venipuncture / Unknown 12/16/2024 4:45 AM EDT 12/16/2024 8:37 AM EDT Sonya BRUMFIELD LAB BLOOD ORDERABLES Final Re sult Performing Organization Address [facility]/ZIP Co de Phone Number [facility] [address] [place] [address], [place] [phone] * (ABNORMAL) Thyroid stimulating hormone (12/16/2024 4:45 AM EDT) TSH 10.89(H) 0.40 - 4.00 mcIU/mL LAB CHEMISTRY METHOD 12/16/2024 11:[address] [facility] Blood Venous blood specimen / Unknown Venipuncture / Unknown 12/16/2024 4:45 AM EDT 12/16/2024 8:37 AM EDT Sonya BRUMFIELD LAB BLOOD ORDERABLES Final Re sult Performing Organization Address [facility] de Phone Number [facility] [address] [place] [address], [place] [phone] * (ABNORMAL) Comprehensive metabolic panel (12/16/2024 4:45 AM EDT) Sodium 136 133 - 145 mmol/L LAB CHEMISTRY METHOD 12/16/2024 10:[address] [facility] Potassium 4.0 3.5 - 5.5 mmol/L LAB CHEMISTRY METHOD 12/16/2024 10:[address] [facility] Chloride 103 96 - 110 mmol/L LAB CHEMISTRY METHOD 12/16/2024 10:[address] [facility] CO2 23 21 - 32 mmol/L LAB CHEMISTRY METHOD 12/16/2024 10:09 AM [facility] Anion Gap 10 3 - 11 LAB CHEMISTRY METHOD 12/16/2024 10:09 AM [facility] Glucose 64(L) 70 - 100 mg/dL LAB CHEMISTRY METHOD 12/16/2024 10:09 AM [facility] BUN 13 5 - 25 mg/dL LAB CHEMISTRY METHOD 12/16/2024 10:09 AM [facility] Creatinine 1.36(H) 0.70 - 1.30 mg/dL LAB CHEMISTRY METHOD 12/16/2024 10:09 AM [facility] eGFR 57(L) >=60 mL/min/1. 73m2 LAB CHEMISTRY METHOD 12/16/2024 10:09 AM [facility] Comment:Calculation based on the Chronic Kidney Disease Epidemiology Collaboration (CKD-EPI) equation refit without adjustment for race. BUN/Creatinine Ratio 9.6 LAB CHEMISTRY METHOD 12/16/2024 10:09 AM [facility] Calcium 9.0 8.5 - 10.5 mg/dL LAB CHEMISTRY METHOD 12/16/2024 10:09 AM [facility] AST (SGOT) 21 10 - 42 unit/L LAB CHEMISTRY METHOD 12/16/2024 10:09 AM [facility] ALT (SGPT) 18 10 - 60 unit/L LAB CHEMISTRY METHOD 12/16/2024 10:09 AM [facility] Alkaline Phosphatase 74 42 - 121 unit/L LAB CHEMISTRY METHOD 12/16/2024 10:09 AM [facility] Total Protein 6.7 6.0 - 8.0 g/dL LAB CHEMISTRY METHOD 12/16/2024 10:09 AM [facility] Albumin 2.4(L) 3.2 - 5.0 g/dL LAB CHEMISTRY METHOD 12/16/2024 10:[address] [facility] Total Bilirubin 0.4 0.0 - 1.4 mg/dL LAB CHEMISTRY METHOD 12/16/2024 10:[address] [facility] Blood Venous blood specimen / Unknown Venipuncture / Unknown 12/16/2024 4:45 AM EDT 12/16/2024 8:37 AM EDT us Sonya BRUMFIELD LAB BLOOD ORDERABLES Final Re sult [facility] [address] [place] [address], documented in this encounter Visit Diagnoses Diagnosis Other nursing home (current) drug therapy documented in this encounter Care Teams Criminal Psychologist Relationship Specialty Start Date End Date Handy Elias MD [address] [place] [address] PCP - General Internal Medicine 01/13/18 documented as of this encounter
--- OUTSIDE RECORDS SUMMARY | 2025-02-16 17:07 | XMS_ITS | Encounter Summary ---
Author Organization [facility] Address [address] [place] [address] Care Team Providers Care Mission Commander Name Role Phone Handy Elias MD Primary Care Provider [phone] [phone] Encounter Details Date Type Department Care Team (Late st Contact Info) Description 12/08/2024 Lab Requisition [facility] - Main Lab [address] [facility] [place] [address] Sonya Real PA [address] [place] [address] Encounter for other general examination [...] Complete blood count (12/08/2024 5:04 AM EDT) [facility] Signature WBC 10.9(H) 4.8 - 10.8 K/mcL LAB HEMETOLOGY [facility] RBC 3.40(L) 4.50 - 5.50 M/mcL LAB HEMETOLOGY METHOD 12/08/2024 10:50 AM [facility] Hemoglobin 10.1(L) 13.5 - 17.5 g/dL LAB HEMETOLOGY METHOD 12/08/2024 10:50 AM [facility] Hematocrit 33.5(L) 42.0 - 54.0 % LAB HEMETOLOGY METHOD 12/08/2024 10:50 AM [facility] MCV 98.0 79.0 - 98.0 FL LAB HEMETOLOGY METHOD 12/08/2024 10:50 AM [facility] MCH 29.5 27.0 - 32.0 pcg LAB HEMETOLOGY METHOD 12/08/2024 10:50 AM [facility] MCHC 30.1(L) 32.0 - 37.0 g/dL LAB HEMETOLOGY METHOD 12/08/2024 10:50 AM EDT [facility] RDW 14.8 11.0 - 15.0 % LAB HEMETOLOGY METHOD 12/08/2024 10:50 AM T [facility] Platelets 698(H) 130 - 400 K/mcL LAB HEMETOLOGY METHOD 12/08/2024 10:50 AM [facility] MPV 10.5 7.0 - 11.0 FL LAB HEMETOLOGY METHOD 12/08/2024 10:50 AM EDT [facility] NRBC 0.0 <1.0 % LAB HEMETOLOGY METHOD 12/08/2024 10:50 AM EDT [facility] NRBC Absolute 0.00 <0.10 K/mcL LAB HEMETOLOGY METHOD 12/08/2024 10:50 AM EDT [facility] Blood Venous blood specimen / Unknown Venipuncture / Unknown 12/08/2024 5:04 AM EDT 12/08/2024 9:52 AM EDT us Sonya BRUMFIELD LAB BLOOD ORDERABLES Final Re sult Performing Organization Address City/[facility]/ZIP Co de Phone Number [facility] [address] [place] [address], [place] [phone] * Ferritin (12/08/2024 5:04 AM EDT) Pathologist [facility] Ferritin 85 26 - 388 ng/mL LAB CHEMISTRY METHOD 12/08/2024 12:01 PM EDT [facility] Blood Venous blood specimen / Unknown Venipuncture / Unknown 12/08/2024 5:04 AM EDT 12/08/2024 9:52 AM EDT us Sonya BRUMFIELD LAB BLOOD ORDERABLES Final Re sult [facility] [address] [place] [address], [place] [phone] * (ABNORMAL) Comprehensive metabolic panel (12/08/2024 5:04 AM EDT) Sodium 136 133 - 145 mmol/L LAB CHEMISTRY METHOD 12/08/2024 12:01 PM EDT [facility] Potassium 4.6 3.5 - 5.5 mmol/L LAB CHEMISTRY METHOD 12/08/2024 12:01 PM EDT [facility] Chloride 104 96 - 110 mmol/L LAB CHEMISTRY METHOD 12/08/2024 12:01 PM [facility] CO2 23 21 - 32 mmol/L LAB CHEMISTRY METHOD 12/08/2024 12:01 PM [facility] Anion Gap 9 3 - 11 LAB CHEMISTRY METHOD 12/08/2024 12:01 PM [facility] Glucose 84 70 - 100 mg/dL LAB CHEMISTRY METHOD 12/08/2024 12:01 PM [facility] BUN 23 5 - 25 mg/dL LAB CHEMISTRY METHOD 12/08/2024 12:01 PM [facility] Creatinine 1.31(H) 0.70 - 1.30 mg/dL LAB CHEMISTRY METHOD 12/08/2024 12:01 PM [facility] eGFR 60 >=60 mL/min/1. 73m2 LAB CHEMISTRY METHOD 12/08/2024 12:01 PM [facility] Comment:Calculation based on the Chronic Kidney Disease Epidemiology Collaboration (CKD-EPI) equation refit without adjustment for race. BUN/Creatinine Ratio 17.6 LAB CHEMISTRY METHOD 12/08/2024 12:01 PM [facility] Calcium 9.1 8.5 - 10.5 mg/dL LAB CHEMISTRY METHOD 12/08/2024 12:01 [facility] AST (SGOT) 21 10 - 42 unit/L LAB CHEMISTRY METHOD 12/08/2024 12:01 [facility] ALT (SGPT) 22 10 - 60 unit/L LAB CHEMISTRY METHOD 12/08/2024 12:01 PM [facility] Alkaline Phosphatase 80 42 - 121 unit/L LAB CHEMISTRY METHOD 12/08/2024 12:01 PM [facility] Total Protein 7.7 6.0 - 8.0 g/dL LAB CHEMISTRY METHOD 12/08/2024 12:01 PM [facility] Albumin 2.4(L) 3.2 - 5.0 g/dL LAB CHEMISTRY METHOD 12/08/2024 12:01 PM EDT [facility] Total Bilirubin 0.3 0.0 - 1.4 mg/dL LAB CHEMISTRY METHOD 12/08/2024 12:01 PM EDT [facility] Blood Venous blood specimen / Unknown Venipuncture / Unknown 12/08/2024 5:04 AM EDT 12/08/2024 9:52 AM EDT Sonya BRUMFIELD LAB BLOOD ORDERABLES Final Re sult Performing Organization Address City/[facility]/ZIP Co de Phone Number [facility] [address] [place] [address], [place] [phone] * Vitamin B12 and folate (12/08/2024 5:04 AM EDT) Pathologist [facility] Vitamin B-12 539 250 - 900 pcg/mL LAB CHEMISTRY METHOD 12/08/2024 12:01 PM EDT [facility] Folate 6.2 2.8 - 17.0 ng/ml LAB CHEMISTRY METHOD 12/08/2024 12:01 PM EDT [facility] Blood Venous blood specimen / Unknown Venipuncture / Unknown 12/08/2024 5:04 AM EDT 12/08/2024 9:52 AM EDT Sonya BRUMFIELD LAB BLOOD ORDERABLES Final Re sult [facility] [address] [place] [address], [place] [phone] * (ABNORMAL) Iron and TIBC (12/08/2024 5:04 AM EDT) Iron 30(L) 50 - 160 mcg/dL LAB CHEMISTRY METHOD 12/08/2024 11:39 AM EDT [facility] TIBC 244(L) 250 - 450 mcg/dL LAB CHEMISTRY METHOD 12/08/2024 11:39 AM EDT [facility] Iron Saturation 12(L) 20 - 50 % LAB CHEMISTRY METHOD 12/08/2024 11:39 AM EDT [facility] Blood Venous blood specimen / Unknown Venipuncture / Unknown 12/08/2024 5:04 AM EDT 12/08/2024 9:52 AM EDT us Sonya BRUMFIELD LAB BLOOD ORDERABLES Final Re sult [facility] [address] [place] [address], documented in this encounter Visit Diagnoses Diagnosis Encounter for other general examination documented in this encounter Care Teams Mission Commander Relationship Specialty Start Date End Date Handy Elias MD [address] [place] [address] PCP - General Internal Medicine 01/13/18 documented as of this encounter
--- OUTSIDE RECORDS SUMMARY | 2025-02-16 17:07 | XMS_ITS | Encounter Summary ---
Author Organization [facility] Address [address] [place] [address] Care Team Providers Care Warehouse Director Name Role Phone Handy Elias MD Primary Care Provider [phone] [phone] Encounter Details Date Type Department Care Team (Late st Contact Info) Description 12/13/2024 Lab Requisition [facility] - Main Lab [address] [place] [address] Sonya Real PA [address] [place] [address] Encounter for other general examination [...] mmol/L LAB CHEMISTRY METHOD 12/13/2024 10:05 AM [facility] Potassium 4.7 3.5 - 5.5 mmol/L LAB CHEMISTRY METHOD 12/13/2024 10:05 AM [facility] Chloride 107 96 - 110 mmol/L LAB CHEMISTRY METHOD 12/13/2024 10:05 AM [facility] CO2 27 21 - 32 mmol/L LAB CHEMISTRY METHOD 12/13/2024 10:05 AM [facility] Anion Gap 6 3 - 11 LAB CHEMISTRY METHOD 12/13/2024 10:05 AM [facility] Glucose 75 70 - 100 mg/dL LAB CHEMISTRY METHOD 12/13/2024 10:05 AM [facility] BUN 18 5 - 25 mg/dL LAB CHEMISTRY METHOD 12/13/2024 10:05 AM [facility] Creatinine 1.34(H) 0.70 - 1.30 mg/dL LAB CHEMISTRY METHOD 12/13/2024 10:05 AM [facility] eGFR 58(L) >=60 mL/min/1. 73m2 LAB CHEMISTRY METHOD 12/13/2024 10:05 AM [facility] Comment:Calculation based on the Chronic Kidney Disease Epidemiology Collaboration (CKD-EPI) equation refit without adjustment for race. BUN/Creatinine Ratio 13.4 LAB CHEMISTRY METHOD 12/13/2024 10:05 AM [facility] Calcium 8.8 8.5 - 10.5 mg/dL LAB CHEMISTRY METHOD 12/13/2024 10:05 AM [facility] AST (SGOT) 15 10 - 42 unit/L LAB CHEMISTRY METHOD 12/13/2024 10:05 AM [facility] ALT (SGPT) 16 10 - 60 unit/L LAB CHEMISTRY METHOD 12/13/2024 10:05 AM [facility] Alkaline Phosphatase 72 42 - 121 unit/L LAB CHEMISTRY METHOD 12/13/2024 10:05 AM EDT [facility] Total Protein 7.0 6.0 - 8.0 g/dL LAB CHEMISTRY METHOD 12/13/2024 10:05 AM T [facility] Albumin 2.4(L) 3.2 - 5.0 g/dL LAB CHEMISTRY METHOD 12/13/2024 10:05 AM [facility] Total Bilirubin 0.3 0.0 - 1.4 mg/dL LAB CHEMISTRY METHOD 12/13/2024 10:05 AM EDT [facility] Blood Venous blood specimen / Unknown Venipuncture / Unknown 12/13/2024 5:39 AM EDT 12/13/2024 8:46 AM EDT us Sonya BRUMFIELD LAB BLOOD ORDERABLES Final Re sult [facility] [address] [place] [address], * (ABNORMAL) Complete blood count (12/13/2024 5:39 AM EDT) WBC 11.9(H) 4.8 - 10.8 K/mcL LAB HEMETOLOGY METHOD 12/13/2024 9:30 AM [facility] RBC 3.30(L) 4.50 - 5.50 M/mcL LAB HEMETOLOGY METHOD 12/13/2024 9:30 AM T [facility] Hemoglobin 9.8(L) 13.5 - 17.5 g/dL LAB HEMETOLOGY METHOD 12/13/2024 9:30 AM [facility] Hematocrit 32.6(L) 42.0 - 54.0 % LAB HEMETOLOGY METHOD 12/13/2024 9:30 AM [facility] MCV 97.6 79.0 - 98.0 FL LAB HEMETOLOGY METHOD 12/13/2024 9:30 AM EDT [facility] MCH 29.3 27.0 - 32.0 pcg LAB HEMETOLOGY METHOD 12/13/2024 9:30 AM EDT [facility] MCHC 30.1(L) 32.0 - 37.0 g/dL LAB HEMETOLOGY METHOD 12/13/2024 9:30 AM EDT [facility] RDW 14.8 11.0 - 15.0 % LAB HEMETOLOGY METHOD 12/13/2024 9:30 AM EDT [facility] Platelets 661(H) 130 - 400 K/mcL LAB HEMETOLOGY METHOD 12/13/2024 9:30 AM EDT [facility] MPV 10.5 7.0 - 11.0 FL LAB HEMETOLOGY METHOD 12/13/2024 9:30 AM EDT [facility] NRBC 0.0 <1.0 % LAB HEMETOLOGY METHOD 12/13/2024 9:30 AM EDT [facility] NRBC Absolute 0.00 <0.10 K/mcL LAB HEMETOLOGY METHOD 12/13/2024 9:30 AM EDT [facility] Blood Venous blood specimen / Unknown Venipuncture / Unknown 12/13/2024 5:39 AM EDT 12/13/2024 8:46 AM EDT us Sonya BRUMFIELD LAB BLOOD ORDERABLES Final Re sult [facility] [address] [place] [address], documented in this encounter Visit Diagnoses Diagnosis Encounter for other general examination documented in this encounter Care Teams Warehouse Director Relationship Specialty Start Date End Date Handy Elias MD [address] [place] [address] PCP - General Internal Medicine 01/13/18 documented as of this encounter
--- OUTSIDE RECORDS SUMMARY | 2025-02-16 17:07 | XMS_ITS | Encounter Summary ---
Author Organization [employer] Address [address] [place] [address] Care Team Providers Care Finishing Lab Technician Name Role Phone Handy Elias MD Primary Care Provider [phone]- [phone] Reason for Referral * Consultation (Routine) - Closed Specialty Diagnoses / Procedures Referred By Contac t Referred To Contact Pain Medicine Diagnoses Chronic midline low back pain, unspecified whether sciatica present Handy Elias MD [address] [place] [address] Phone: tel: fax: Earnest Gardner MD [address] [place] [address] [address] [place] [address] Phone: tel: fax: Referral ID Status Reason Start Date Expiration Date V isits Requested Visits Authorized [id number] Closed Specialty Services Required 06/23/2024 06/23/2025 1 1 Encounter Details Date Type Department Care Team (Late st Contact Info) Description 06/23/2024 Orders Only [facility] PEDS [address] [place], [place] [phone] Handy Elias MD [address] [place], [place] [phone] Chronic midline low back pain, unspecified whether [...] Info) Description 03/01/2025 1:00 PM EST Telemedicine [facility] PEDS [address] [place] [address] Tessa Cox, RN [address] [place] [address] Scheduled Referrals Name Type Priority Associated Diagnoses [...] documented as of this encounter Care Teams Finishing Lab Technician Relationship Specialty Start Date End Date Handy Elias MD [address] [place] [address] PCP - General Internal Medicine 11/17/12 [facility] 12/19/24 documented as of this encounter
--- OUTSIDE RECORDS SUMMARY | 2025-02-16 17:07 | XMS_ITS | Encounter Summary ---
Author Organization [employer] Address [address] [place] [address] 7 [place] [address] Care Team Providers Care Chief Supply Chain Officer Name Role Phone Handy Elias MD Primary Care Provider [phone]- [phone] Encounter Details Date Type Department Care Team ([facility] Contact Info) Description 10/10/2022 Orders Only [facility] CHC MED & PEDS [address] [place], [place] [phone] Handy Elias MD [address] [place], [place] [phone] Social History Tobacco Use Types Packs/Day Years [...] Info) Description 03/01/2025 1:00 PM EST Telemedicine [facility] CH[facility] MED & PEDS [address] [place], [place] [phone] Tessa Cox RN [address] [place], [place] [phone] documented as of this encounter Visit Diagnoses Not on filedocumented in this encounter Care Teams Chief Supply Chain Officer Relationship Specialty Start Date End Date Handy Elias MD [address] [place] [address] PCP - General Internal Medicine 11/17/12 [facility] 12/19/24 documented as of this encounter
--- OUTSIDE RECORDS SUMMARY | 2025-02-16 17:07 | XMS_ITS | Encounter Summary ---
Author Organization [facility] Address [address] [place] [address] Care Team Providers Care Financial Intern Name Role Phone Handy Elias MD Primary Care Provider [phone] -[phone] Encounter Details Date Type Department Care Team (Late st Contact Info) Description 12/16/2024 Lab Requisition [facility] - Main Lab 299 [facility] [place] [address] Sonya Real PA [address] [place] [address] Social History Tobacco Use Types [...] on filedocumented in this encounter Care Teams Financial Intern Relationship Specialty Start Date End Date Handy Elias MD [address] [place] [address] PCP - General Internal Medicine 01/13/18 documented as of this encounter
--- OUTSIDE RECORDS SUMMARY | 2025-02-16 17:07 | XMS_ITS | Encounter Summary ---
Author Organization [facility] Address [address] [place] [address] Care Team Providers Care Loss Prevention And Safety Manager Name Role Phone Handy Elias MD Primary Care Provider [phone] [phone] Encounter Details Date Type Department Care Team (Late st Contact Info) Description 12/05/2024 Lab Requisition [facility] - Main Lab [address] [place] [address] Sonya Real PA [address] [place] [address] Encounter for other general examination [...] mmol/L LAB CHEMISTRY METHOD 12/05/2024 11:07 AM [facility] Potassium 4.6 3.5 - 5.5 mmol/L LAB CHEMISTRY METHOD 12/05/2024 11:07 AM [facility] Chloride 104 96 - 110 mmol/L LAB CHEMISTRY METHOD 12/05/2024 11:07 AM [facility] CO2 24 21 - 32 mmol/L LAB CHEMISTRY METHOD 12/05/2024 11:07 AM [facility] Anion Gap 8 3 - 11 LAB CHEMISTRY METHOD 12/05/2024 11:07 AM [facility] Glucose 102(H) 70 - 100 mg/dL LAB CHEMISTRY METHOD 12/05/2024 11:07 AM [facility] BUN 22 5 - 25 mg/dL LAB CHEMISTRY METHOD 12/05/2024 11:07 AM [facility] Creatinine 1.30 0.70 - 1.30 mg/dL LAB CHEMISTRY METHOD 12/05/2024 11:07 AM [facility] eGFR 61 >=60 mL/min/1. 73m2 LAB CHEMISTRY METHOD 12/05/2024 11:07 AM [facility] Comment:Calculation based on the Chronic Kidney Disease Epidemiology Collaboration (CKD-EPI) equation refit without adjustment for race. BUN/Creatinine Ratio 16.9 LAB CHEMISTRY METHOD 12/05/2024 11:07 AM [facility] Calcium 9.6 8.5 - 10.5 mg/dL LAB CHEMISTRY METHOD 12/05/2024 11:07 AM [facility] AST (SGOT) 17 10 - 42 unit/L LAB CHEMISTRY METHOD 12/05/2024 11:07 AM [facility] ALT (SGPT) 23 10 - 60 unit/L LAB CHEMISTRY METHOD 12/05/2024 11:07 AM [facility] Alkaline Phosphatase 92 42 - 121 unit/L LAB CHEMISTRY METHOD 12/05/2024 11:07 AM [facility] Total Protein 7.5 6.0 - 8.0 g/dL LAB CHEMISTRY METHOD 12/05/2024 11:07 AM [facility] Albumin 2.4(L) 3.2 - 5.0 g/dL LAB CHEMISTRY METHOD 12/05/2024 11:07 AM [facility] Total Bilirubin 0.3 0.0 - 1.4 mg/dL LAB CHEMISTRY METHOD 12/05/2024 11:07 AM [facility] Blood Venous blood specimen / Unknown Venipuncture / Unknown 12/05/2024 6:09 AM EDT 12/05/2024 10:03 AM EDT us Sonya BRUMFIELD LAB BLOOD ORDERABLES Final Re sult [facility] [address] [place] [address], * (ABNORMAL) Complete blood count (12/05/2024 6:09 AM EDT) WBC 11.5(H) 4.8 - 10.8 K/[facility] LAB HEMETOLOGY METHOD 12/05/2024 10:42 AM [facility] RBC 3.30(L) 4.50 - 5.50 M/[facility] LAB HEMETOLOGY METHOD 12/05/2024 10:42 AM [facility] Hemoglobin 10.0(L) 13.5 - 17.5 g/dL LAB HEMETOLOGY METHOD 12/05/2024 10:42 AM [facility] Hematocrit 33.5(L) 42.0 - 54.0 % LAB HEMETOLOGY METHOD 12/05/2024 10:42 AM [facility] MCV 100.6(H) 79.0 - 98.0 FL LAB HEMETOLOGY METHOD 12/05/2024 10:42 AM EDT [facility] MCH 30.0 27.0 - 32.0 pcg LAB HEMETOLOGY METHOD 12/05/2024 10:42 AM EDT [facility] MCHC 29.9(L) 32.0 - 37.0 g/dL LAB HEMETOLOGY METHOD 12/05/2024 10:42 AM EDT [facility] RDW 15.0 11.0 - 15.0 % LAB HEMETOLOGY METHOD 12/05/2024 10:42 AM EDT [facility] Platelets 681(H) 130 - 400 K/mcL LAB HEMETOLOGY METHOD 12/05/2024 10:42 AM EDT [facility] MPV 10.1 7.0 - 11.0 FL LAB HEMETOLOGY METHOD 12/05/2024 10:42 AM EDT [facility] NRBC 0.0 <1.0 % LAB HEMETOLOGY METHOD 12/05/2024 10:42 AM EDT [facility] NRBC Absolute 0.00 <0.10 K/mcL LAB HEMETOLOGY METHOD 12/05/2024 10:42 AM T [facility] Blood Venous blood specimen / Unknown Venipuncture / Unknown 12/05/2024 6:09 AM EDT 12/05/2024 10:03 AM EDT us Sonya BRUMFIELD LAB BLOOD ORDERABLES Final Re sult [facility] [address] [place] [address], documented in this encounter Visit Diagnoses Diagnosis Encounter for other general examination documented in this encounter Care Teams Loss Prevention And Safety Manager Relationship Specialty Start Date End Date Handy Elias MD [address] [place] [address] PCP - General Internal Medicine 01/13/18 documented as of this encounter
--- OUTSIDE RECORDS SUMMARY | 2025-02-16 17:07 | XMS_ITS | Encounter Summary ---
Author Organization [facility] Address [address] [place] [address] Care Team Providers Care Feeder Tender Name Role Phone Handy Elias MD Primary Care Provider [phone] [phone] Encounter Details Date Type Department Care Team (Late st Contact Info) Description 11/16/2024 Lab Requisition [facility] - Main Lab [address] [place] [address] Sonya Real PA [address] [place] [address] Encounter for other general examination [...] 2:06 PM EDT [facility] Blood Venous blood specimen / Unknown Venipuncture / Unknown 11/16/2024 11:40 AM EDT 11/16/2024 12:46 PM EDT Narrative [facility] ([facility] - 11/16/2024 2:06 PM EDT [...] LAB BLOOD ORDERABLES Final Re sult [facility] [address] [place] [address], documented in this encounter Visit Diagnoses Diagnosis Encounter for other general examination documented in this encounter Care Teams Feeder Tender Relationship Specialty Start Date End Date Handy Elias MD [address] [place] [address] PCP - General Internal Medicine 01/13/18 documented as of this encounter
--- OUTSIDE RECORDS SUMMARY | 2025-02-16 17:07 | XMS_ITS | Encounter Summary ---
Author Organization [facility] Address [address] [place] [address] Care Team Providers Care Lithographic Photographer Name Role Phone Hadny Elias MD Primary Care Provider [phone] [phone] Encounter Details Date Type Department Care Team (Late st Contact Info) Description 11/14/2024 Lab Requisition [facility] - Main Lab 299 [facility] [place] [address] Myriam Heath PA [address] [place] [phone] Encounter for other general examination Social History [...] % LAB HEMETOLOGY METHOD 11/14/2024 10:42 AM [facility] Bands % 2.0 % LAB HEMETOLOGY METHOD 11/14/2024 10:42 AM [facility] Lymphocytes % 4.0 % LAB HEMETOLOGY METHOD 11/14/2024 10:42 AM [facility] Reactive Lymphocyte 3.00 % LAB HEMETOLOGY METHOD 11/14/2024 10:42 AM [facility] Monocytes % 10.0 % LAB HEMETOLOGY METHOD 11/14/2024 10:42 AM [facility] Eosinophils % 0.0 % LAB HEMETOLOGY METHOD 11/14/2024 10:42 AM [facility] Basophils % 0.0 % LAB HEMETOLOGY METHOD 11/14/2024 10:42 AM [facility] Metamyelocytes % 3.0(H) % LAB HEMETOLOGY METHOD 11/14/2024 10:42 AM [facility] Myelocytes % 1.0(H) % LAB HEMETOLOGY METHOD 11/14/2024 10:42 AM [facility] Promyelocytes % 2.0(H) % LAB HEMETOLOGY METHOD 11/14/2024 10:42 AM [facility] Neutrophils Absolute Manual 19.00(H) 1.50 - 7.00 K/mcL LAB HEMETOLOGY METHOD 11/14/2024 10:42 AM [facility] Bands Absolute Manual 0.50(H) 0.00 - 0.00 K/mcL LAB HEMETOLOGY METHOD 11/14/2024 10:42 AM EDT [facility] Lymphocytes Absolute 1.00 1.00 - 5.00 K/mcL LAB HEMETOLOGY METHOD 11/14/2024 10:42 AM [facility] Reactive Lymph Abs Manual 0.75(H) 0.00 - 0.00 lym LAB HEMETOLOGY METHOD 11/14/2024 10:42 AM EDT [facility] Monocytes Absolute Manual 2.50(H) 0.20 - 1.00 K/mcL LAB HEMETOLOGY METHOD 11/14/2024 10:42 AM [facility] Eosinophils Absolute Manual 0.00 0.00 - 0.50 K/mcL LAB HEMETOLOGY METHOD 11/14/2024 10:42 AM [facility] Basophils Absolute Manual 0.00 0.00 - 0.20 K/mcL LAB HEMETOLOGY METHOD 11/14/2024 10:42 AM [facility] Metamyelocytes Absolute Manual 0.75(H) 0.00 - 0.00 K/mcL LAB HEMETOLOGY METHOD 11/14/2024 10:42 AM [facility] Myelocytes Absolute Manual 0.25(H) 0.00 - 0.00 K/mcL LAB HEMETOLOGY METHOD 11/14/2024 10:42 AM EDT [facility] Promyelocytes Absolute Manual 0.50(H) 0.00 - 0.00 K/mcL LAB HEMETOLOGY METHOD 11[facility]14[facility]24 [facility] R[facility] Morphology Present( A) Consistent with indices, Normal for [place] LAB [facility]EMETOLOGY METHOD [facility]24 [facility] Platelet Morphology - WAM See Note(A) Normal LAB HEMETOLOGY METHOD 11/14/2024 10:42 AM EDT [facility] Comment:PLT: Normal Polychromasia Present Present( A) (none) LAB HEMETOLOGY METHOD 11/14/2024 10:42 AM EDT [facility] Blood Venous blood specimen / Unknown Venipuncture / Unknown 11/14/2024 6:42 AM EDT 11/14/2024 9:25 AM EDT us Myriam BRUMFIELD LAB BLOOD ORDERABLES Final Resu lt [facility] [address] [place] [address], * (ABNORMAL) CBC auto differential (11/14/2024 6:42 AM EDT) WBC 25.0(H) 4.8 - 10.8 K/mcL LAB HEMETOLOGY METHOD 11/14/2024 10:42 AM [facility] RBC 3.20(L) 4.50 - 5.50 M/mcL LAB HEMETOLOGY METHOD 11/14/2024 10:42 AM [facility] Hemoglobin 9.8(L) 13.5 - 17.5 g/dL LAB HEMETOLOGY METHOD 11/14/2024 10:42 AM [facility] Hematocrit 32.0(L) 42.0 - 54.0 % LAB HEMETOLOGY METHOD 11/14/2024 10:42 AM [facility] MCV 101.6(H) 79.0 - 98.0 FL LAB HEMETOLOGY METHOD 11/14/2024 10:42 AM [facility] MCH 31.1 27.0 - 32.0 pcg LAB HEMETOLOGY METHOD 11/14/2024 10:42 AM [facility] MCHC 30.6(L) 32.0 - 37.0 g/dL LAB HEMETOLOGY METHOD 11/14/2024 10:42 AM EDT [facility] RDW 15.0 11.0 - 15.0 % LAB HEMETOLOGY METHOD 11/14/2024 10:42 AM EDT [facility] Platelets 784(H) 130 - 400 K/mcL LAB HEMETOLOGY METHOD 11/14/2024 10:42 AM EDT [facility] MPV 10.5 7.0 - 11.0 FL LAB HEMETOLOGY METHOD 11/14/2024 10:42 AM EDT [facility] NRBC 0.2 <1.0 % LAB HEMETOLOGY METHOD 11/14/2024 10:42 AM EDT [facility] NRBC Absolute 0.04 <0.10 K/mcL LAB HEMETOLOGY METHOD 11/14/2024 10:42 AM EDT [facility] Blood Venous blood specimen / Unknown Venipuncture / Unknown 11/14/2024 6:42 AM EDT 11/14/2024 9:25 AM EDT Myriam BRUMFIELD LAB BLOOD ORDERABLES Final Resu lt [facility] [address] [place] [address], * (ABNORMAL) Magnesium (11/14/2024 6:42 AM EDT) Magnesium 1.5(L) 1.9 - 2.6 mg/dL LAB CHEMISTRY METHOD 11/14/2024 10:47 AM EDT [facility] Blood Venous blood specimen / Unknown Venipuncture / Unknown 11/14/2024 6:42 AM EDT 11/14/2024 9:25 AM EDT us Myriam BRUMFIELD LAB BLOOD ORDERABLES Final Resu lt [facility] [address] [place] [address], * (ABNORMAL) Comprehensive metabolic panel (11/14/2024 6:42 AM EDT) Sodium 137 133 - 145 mmol/L LAB CHEMISTRY METHOD 11/14/2024 10:56 AM EDT [facility] Potassium 4.7 3.5 - 5.5 mmol/L LAB CHEMISTRY METHOD 11/14/2024 10:56 AM EDT [facility] Chloride 103 96 - 110 mmol/L LAB CHEMISTRY METHOD 11/14/2024 10:56 AM T [facility] CO2 27 21 - 32 mmol/L LAB CHEMISTRY METHOD 11/14/2024 10:56 AM [facility] Anion Gap 7 3 - 11 LAB CHEMISTRY METHOD 11/14/2024 10:56 AM [facility] Glucose 73 70 - 100 mg/dL LAB CHEMISTRY METHOD 11/14/2024 10:56 AM [facility] BUN 14 5 - 25 mg/dL LAB CHEMISTRY METHOD 11/14/2024 10:56 AM [facility] Creatinine 1.05 0.70 - 1.30 mg/dL LAB CHEMISTRY METHOD 11/14/2024 10:56 AM [facility] eGFR 78 >=60 mL/min/1. 73m2 LAB CHEMISTRY METHOD 11/14/2024 10:56 AM [facility] Comment:Calculation based on the Chronic Kidney Disease Epidemiology Collaboration (CKD-EPI) equation refit without adjustment for race. BUN/Creatinine Ratio 13.3 LAB CHEMISTRY METHOD 11/14/2024 10:56 AM [facility] Calcium 8.3(L) 8.5 - 10.5 mg/dL LAB CHEMISTRY METHOD 11/14/2024 10:56 AM [facility] AST (SGOT) 22 10 - 42 unit/L LAB CHEMISTRY METHOD 11/14/2024 10:56 AM EDT [facility] ALT (SGPT) 27 10 - 60 unit/L LAB CHEMISTRY METHOD 11/14/2024 10:56 AM EDT [facility] Alkaline Phosphatase 95 42 - 121 unit/L LAB CHEMISTRY METHOD 11/14/2024 10:56 AM EDT [facility] Total Protein 5.2(L) 6.0 - 8.0 g/dL LAB CHEMISTRY METHOD 11/14/2024 10:56 AM EDT [facility] Albumin 1.8(L) 3.2 - 5.0 g/dL LAB CHEMISTRY METHOD 11/14/2024 10:56 AM EDT [facility] Total Bilirubin 0.4 0.0 - 1.4 mg/dL LAB CHEMISTRY METHOD 11/14/2024 10:56 AM EDT [facility] Blood Venous blood specimen / Unknown Venipuncture / Unknown 11/14/2024 6:42 AM EDT 11/14/2024 9:25 AM EDT us Myriam BRUMFIELD LAB BLOOD ORDERABLES Final Resu lt [facility] [address] [place] [address], documented in this encounter Visit Diagnoses Diagnosis Encounter for other general examination documented in this encounter Care Teams Lithographic Photographer Relationship Specialty Start Date End Date Handy Elias MD [address] [place] [address] PCP - General Internal Medicine 01/13/18 documented as of this encounter
--- OUTSIDE RECORDS SUMMARY | 2025-02-16 17:07 | XMS_ITS | Encounter Summary ---
Author Organization [facility] Address [address] [place] [address] Care Team Providers Care Ruby On Rails Web Developer Name Role Phone Handy Elias MD Primary Care Provider [phone] Encounter Details Date Type Department Care Team (Late st Contact Info) Description 11/16/2024 Lab Requisition [facility] - Main Lab 299 [facility] [place] [address] Sonya Real PA [address] [place] [address] Encounter for other general examination [...] AM EDT 11/16/2024 1:[address] [facility] - 11/17/2024 6:42 PM EDT No targets detected by multiplex PCR panel. Refer to culture. Sonya BRUMFIELD LAB MICROBIOLOGY - GENERAL OR DERABLES Final Result Performing Organization Address City/[facility]/ZIP Co de Phone Number [facility] [address] [place] [address], [place] [phone] * Lactate (11/16/2024 11:40 AM EDT) Lactate 1.5 0.4 - 2.0 mmol/L LAB CHEMISTRY METHOD 11/16/2024 1:[address] [facility] Blood Venous blood specimen / Unknown Venipuncture / Unknown 11/16/2024 11:40 AM EDT 11/16/2024 1:18 PM EDT Sonya BRUMFIELD LAB BLOOD ORDERABLES Final Re sult Performing Organization Address [facility]/ZIP Co de Phone Number [facility] [address] [place] [address], [place] [phone] * (ABNORMAL) Culture blood (11/16/2024 11:40 AM EDT) Culture, Blood Bacteroides thetaiotaomicr on(AA) 11/20/2024 9:[address] [facility] Comment: Anaerobic susceptibilty testing is not routinely performed, if further therapeutic inforamation is required, please consult an Infectious Disease Specialist. The organism value for this result has been updated. These results have been appended to the previously preliminary verified report. Gram Stain Result Anaerobic bottle Gram negative bacilli(AA) 11/20/2024 9:[address] [facility] Comment:This is an appended report. These results have been appended to a previously preliminary verified report. Blood Venipuncture / Unknown 11/16/2024 11:40 AM EDT 11/16/2024 1:18 PM EDT Sonya Real PR LAB MICROBIOLOGY - GENERAL OR DERABLES Final Result Performing Organization Address City/[facility]/[place] Co de Phone Number [facility] [address] [place] [address], [place] [phone] * (ABNORMAL) Culture blood (11/16/2024 11:40 AM EDT) Culture, Blood Bacteroides thetaiotaomicr on(AA) 11/20/2024 9:[address] [facility] Comment: Anaerobic susceptibilty testing is not routinely performed, if further therapeutic inforamation is required, please consult an Infectious Disease Specialist. The organism value for this result has been updated. These results have been appended to the previously preliminary verified report. Gram Stain Result Anaerobic bottle Gram negative bacilli(AA) 11/20/2024 9:[address] [facility] Comment:This is an appended report. These results have been appended to a previously preliminary verified report. Blood Venipuncture / Unknown 11/16/2024 11:40 AM EDT 11/16/2024 1:18 PM EDT Sonya Real PR LAB MICROBIOLOGY - GENERAL OR DERABLES Final Result Performing Organization Address City/[facility]/ZIP Co de Phone Number [facility] [address] [place] [address], [place] [phone] documented in this encounter Visit Diagnoses Diagnosis Encounter for other general examination documented in this encounter Care Teams Ruby On Rails Web Developer Relationship Specialty Start Date End Date Handy Elias MD [address] [place] [address] PCP - General Internal Medicine 01/13/18 documented as of this encounter
--- OUTSIDE RECORDS SUMMARY | 2025-02-16 17:07 | XMS_ITS | Encounter Summary ---
Author Organization [employer] Address [address] [facility] [address] [place] [address] Care Team Providers Care Blueprint Developer Name Role Phone Handy Elias MD Primary Care Provider [phone] Encounter Details Date Type Department Care Team ([facility] st Contact Info) Description 08/12/2024 Orders Only [facility] MED [facility]EDS [address] [place], [place] [phone] Handy Elias MD [address] [place], [place] [phone] Other insomnia (Primary Dx) Social History Tobacco [...] ([facility] st Contact Info) Description 03/01/2025 1:00 PM EST Telemedicine [facility] MED [facility] PEDS [address] [place] [address] Tessa Cox, MARITA [address] [place] [address] documented as of this encounter Procedures Procedure Name Priority Date/Time Associated Diagnosis Comments XR CHEST 2 VIEWS Routine 09/04/2024 2:58 PM EDT documented in this encounter Results * XR Chest 2 Views (09/04/2024 2:58 PM EDT) Anatomical Region Laterality Modality Chest Radiographic Ame ging 09/04/2024 2:58 PM EDT Narrative 09/04/2024 3:14 PM EDT [address] [address] XRay Report Signed Patient: Henri Espino MR#: [id number] [birth year] : 1960 Acct:[id number] Age/Sex: 64 / M ADM Date: 09/04/24 Loc: NOEMI Attending Dr: Stephen Bahena MD Ordering Physician: Stephen Bahena MD Date of Service: 09/04/24 Procedure(s): XR chest 2V Accession Number(s): [id number] cc: Handy Elias MD; Stephen Bahena MD [...] 09/04/24 1511 DD/ 1458 TD/TT: 09/04/24 [address]ter: Procedure Note Donotuseinterpreter, Image - 09/04/[address] [address] XRay Report Signed Patient: Henri Espino FMR#: [id number] : 1960cct:[id number] Age/Sex: 64 / MADM Date: 09/04/24 Loc: HO.XRAY Attending Dr: Stephen Bahena MD Ordering Physician: Stephen Bahena MD Date of Service: 09/04/24 Procedure(s): XR chest 2V Accession Number(s): [id number] cc: Handy Elias MD; Stephen Bahena MD [...] 09/04/24 1511 DD/ 1458 TD/TT: 09/04/24 [address]ter: [facility] External Provider IMG XR PROCEDURES Final Result documented in this encounter Visit Diagnoses Diagnosis Other insomnia- Primary documented in this encounter Additional Health Concerns Assessment Noted Time PHQ-9 Depression Total Score: 2 05/09/19 25 2:07 PM EDT documented as of this encounter Care Teams Blueprint Developer Relationship Specialty Start Date End Date Handy Elias MD [address] [place] [address] PCP - General Internal Medicine 11/17[facility]12 [facility] 12/19/24 documented as of this encounter
--- OUTSIDE RECORDS SUMMARY | 2025-02-16 17:07 | XMS_ITS | Encounter Summary ---
Author Organization [employer] Address [address] [place] [address] 7 [place] [address] Care Team Providers Care Dye Beck Reel Operator Name Role Phone Handy Elias MD Primary Care Provider [phone] [phone] Encounter Details Date Type Department Care Team ([facility] Contact Info) Description 12/12/2022 Orders Only [facility] [address] [place], [place] [phone] Handy Elias MD [address] [place], [place] [phone] Vitamin B12 deficiency (Primary Dx) Social History [...] [facility] [address] [place], [place] [phone] Tessa Cox, MARITA [address] [place], [place] [phone] documented as of this encounter Visit Diagnoses Diagnosis Vitamin B12 deficiency- Primary Other B-complex deficiencies documented in this encounter Care Teams Dye Beck Reel Operator Relationship Specialty Start Date End Date Handy Elias MD [address] [place] [address] PCP - General Internal Medicine 11/17/12 [facility] 12/19/24 documented as of this encounter
--- OUTSIDE RECORDS SUMMARY | 2025-02-16 17:07 | XMS_ITS | Encounter Summary ---
Author Organization [facility] Address [address] [place] [address] Care Team Providers Care Medical Technical Writer Name Role Phone Handy Elias MD Primary Care Provider [phone] [phone] Encounter Details Date Type Department Care Team (Late st Contact Info) Description 11/16/[address] [facility] - Main Lab [address] [place] [address] Zoila Cruz MD [address] [place] [phone] Encounter for other general examination Social [...] ssp pneumoniae(A) BOBBY 11/19/2024 10:52 AM EDT [facility] Comment: The organism value for this result has been updated. These results have been appended to the previously preliminary verified report. This is an edited result. Previous organism was Gram negative bacilli on 11/17/2024 at 1100 EDT. Culture, Wound Escherichia coli(A) BOBBY 11/19/2024 10:52 AM EDT [facility] Comment: The organism value for this result has been updated. These results have been appended to the previously preliminary verified report. This is an edited result. Previous organism was Gram negative bacilli on 11/18/2024 at 1044 EDT. Gram Stain Result No polymorphonuclear leukocytes, No epithelial cells, and No organisms noted 11/19/2024 10:52 AM EDT [facility] Swab Non-blood Collection / Unknown 11/16/2024 8:00 AM EDT 11/16/2024 12:33 PM EDT Narrative [facility] - 11/19/2024 10:52 AM EDT Mixed [...] MICROBIOLOGY - GENERA L ORDERABLES Final Result [facility]) [facility] [address] [place] [address], [place] [phone] documented in this encounter Visit Diagnoses Diagnosis Encounter for other general examination documented in this encounter Care Teams Medical Technical Writer Relationship Specialty Start Date End Date Handy Elias MD [address] [place] [address] PCP - General Internal Medicine 01/13/18 documented as of this encounter
--- OUTSIDE RECORDS SUMMARY | 2025-02-16 17:07 | XMS_ITS | Encounter Summary ---
Author Organization [facility] Address [address] [place] [address] Care Team Providers Care Ged Instructor Name Role Phone Handy Elias MD Primary Care Provider [phone] [phone] Encounter Details Date Type Department Care Team (Late st Contact Info) Description 12/17/2024 Lab Requisition [facility] - Main Lab [address] [facility] [place] [address] Sonya Real PA [address] [place] [address] Encounter for other general examination [...] Culture urine (12/16/2024 11:10 PM EDT) Pathologist [facility] Culture, Urine No growth 12/18/2024 8:[address] [facility] Urine Urine specimen obtained by clean catch procedure / Unknown 12/16/2024 11:10 PM EDT 12/17/2024 6:51 AM EDT [facility] MICROBIOLOGY - GENERAL OR DERABLES Final Result Performing Organization Address City/[facility] [address]/ZIP Co de Phone Number [facility] [address] [place] [address], [place] [phone] * Butler urine culture tube (12/16/2024 11:10 PM EDT) [facility] Extra Tube Hold for add-ons. 12/17/2024 8:[address] [facility] Comment:Auto resulted. Urine Urine specimen obtained by clean catch procedure / Unknown 12/16/2024 11:10 PM EDT 12/17/2024 6:35 AM EDT [facility] URINE ORDERABLES Final Re sult [facility] [address] [place] [address], [place] [phone] * (ABNORMAL) Urinalysis with reflex microscopic and culture (12/16/2024 11:10 PM EDT) [facility] Specific [place] Urine 1.015 1.003 - 1.030 LAB URINALYSIS - AUTOMATED METHOD 12/17/2024 6:[address] [facility] pH, Urine 6.0 5.0 - 8.0 pH LAB URINALYSIS - AUTOMATED METHOD 12/17/2024 6:[address] [facility] Leukocytes, Urine Trace(A) Negative LAB URINALYSIS - AUTOMATED METHOD 12/17/2024 6:52 AM [facility] Nitrite, Urine Negative Negative LAB URINALYSIS - AUTOMATED METHOD 12/17/2024 6:52 AM [facility] Protein, Urine Trace <=Trace mg/dL LAB URINALYSIS - AUTOMATED METHOD 12/17/2024 6:52 AM [facility] Glucose, Urine Negative Negative mg/dL LAB URINALYSIS - AUTOMATED METHOD 12/17/2024 6:52 AM [facility] Ketones, Urine Trace(A) Negative mg/dL LAB URINALYSIS - AUTOMATED METHOD 12/17/2024 6:52 AM [facility] Urobilinogen, Urine 0.2 0.2 - 1.0 mg/dL LAB URINALYSIS - AUTOMATED METHOD 12/17/2024 6:52 AM [facility] Bilirubin, Urine Negative Negative LAB URINALYSIS - AUTOMATED METHOD 12/17/2024 6:52 AM [facility] Blood, Urine Negative Negative LAB URINALYSIS - AUTOMATED METHOD 12/17/2024 6:52 AM [facility] RBC, Urine 3.7 0 - 4 /HPF LAB URINALYSIS - AUTOMATED METHOD 12/17/2024 6:52 AM [facility] WBC, Urine 1.5 0 - 4 /HPF LAB URINALYSIS - AUTOMATED METHOD 12/17/2024 6:52 AM [facility] Squamous Epithelial, Urine 17 0 - 60 /LPF LAB URINALYSIS - AUTOMATED METHOD 12/17/2024 6:52 AM [facility] Bacteria, Urine Negative Negative /HPF LAB URINALYSIS - AUTOMATED METHOD 12/17/2024 6:52 AM [facility] Hyaline Casts, Urine 4.4(H) 0 - 3 /LPF LAB URINALYSIS - AUTOMATED METHOD 12/17/2024 6:[address] [facility] Urine Urine specimen obtained by clean catch procedure / Unknown 12/16/2024 11:10 PM EDT 12/17/2024 6:35 AM EDT us [facility]a [facility] URINE ORDERABLES Final Re sult [facility] [address] [place] [address], documented in this encounter Visit Diagnoses Diagnosis Encounter for other general examination documented in this encounter Care Teams Ged Instructor Relationship Specialty Start Date End Date Handy Elias MD [address] [place] [address] PCP - General Internal Medicine 01/13/18 documented as of this encounter
--- OUTSIDE RECORDS SUMMARY | 2025-02-16 17:07 | XMS_ITS | Encounter Summary ---
Author Organization [facility] Address [address] [place] [address] Care Team Providers Care Co Founder And Ceo Name Role Phone Handy Elias MD Primary Care Provider [phone] [phone] Encounter Details Date Type Department Care Team (Late st Contact Info) Description 11/16/2024 Lab Requisition [facility] - Main Lab 299 [facility] [place] [address] Sonya Real PA [address] [place] [address] Encounter for other general examination [...] and culture (11/16/2024 3:00 PM EDT) Specific [place] Urine 1.018 1.003 - 1.030 LAB URINALYSIS - AUTOMATED METHOD 11/17/2024 9:16 AM [facility] pH, Urine 6.0 5.0 - 8.0 pH LAB URINALYSIS - AUTOMATED METHOD 11/17/2024 9:16 AM [facility] Leukocytes, Urine Negative Negative LAB URINALYSIS - AUTOMATED METHOD 11/17/2024 9:16 AM [facility] Nitrite, Urine Negative Negative LAB URINALYSIS - AUTOMATED METHOD 11/17/2024 9:16 AM [facility] Protein, Urine Trace <=Trace mg/dL LAB URINALYSIS - AUTOMATED METHOD 11/17/2024 9:16 AM [facility] Glucose, Urine Negative Negative mg/dL LAB URINALYSIS - AUTOMATED METHOD 11/17/2024 9:16 AM [facility] Ketones, Urine Negative Negative mg/dL LAB URINALYSIS - AUTOMATED METHOD 11/17/2024 9:16 AM [facility] Urobilinogen, Urine 1.0 0.2 - 1.0 mg/dL LAB URINALYSIS - AUTOMATED METHOD 11/17/2024 9:16 AM [facility] Bilirubin, Urine Negative Negative LAB URINALYSIS - AUTOMATED METHOD 11/17/2024 9:16 AM [facility] Blood, Urine Negative Negative LAB URINALYSIS - AUTOMATED METHOD 11/17/2024 9:16 AM [facility] Urine Urine specimen obtained by clean catch procedure / Unknown Non-blood Collection / Unknown 11/16/2024 3:00 PM EDT 11/17/2024 7:42 AM EDT us [facility]a [facility] URINE ORDERABLES Final Re sult [facility] [address] [place] [address], [place] [phone] * Butler urine culture tube (11/16/2024 3:00 PM EDT) Extra Tube Hold for add-ons. 11/17/2024 9:01 AM EDT [facility] Comment:Auto resulted. Urine Urine specimen obtained by clean catch procedure / Unknown Non-blood Collection / Unknown 11/16/2024 3:00 PM EDT 11/17/2024 7:42 AM EDT us [facility] URINE ORDERABLES Final Re sult Performing Organization Address [facility] Co de Phone Number [facility] [address] [place] [address], [place] [phone] documented in this encounter Visit Diagnoses Diagnosis Encounter for other general examination documented in this encounter Care Teams Co Founder And Ceo Relationship Specialty Start Date End Date Handy Elias MD [address] [place] [address] PCP - General Internal Medicine 01/13/18 documented as of this encounter
--- OUTSIDE RECORDS SUMMARY | 2025-02-16 17:07 | XMS_ITS | Encounter Summary ---
Author Organization [facility] Address [address] [place] [address] Care Team Providers Care Photography Colorist Name Role Phone Handy Elias MD Primary Care Provider [phone] [phone] Encounter Details Date Type Department Care Team (Late st Contact Info) Description 12/02/2024 Lab Requisition [facility] - Main Lab [address] [facility] [place] [address] Lukas Sheppard PA [address] [place] [phone] Encounter for other general examination Social History [...] 64.0 % [facility] Lymphocytes % 19.0 % [facility] Monocytes % 14.0 % LAB HEMETOLOGY METHOD 12:12 PM [facility] Eosinophils % 2.0 % LAB HEMETOLOGY METHOD 12:12 PM [facility] Basophils % 0.0 % LAB HEMETOLOGY METHOD 12:12 PM [facility] Metamyelocytes % 1.0(H) % LAB HEMETOLOGY METHOD 12:12 PM [facility] Myelocytes % 1.0(H) % LAB HEMETOLOGY METHOD 12:12 PM [facility] Neutrophils Absolute Manual 8.90(H) 1.50 - 7.00 K/mcL LAB HEMETOLOGY METHOD 12:12 PM [facility] Lymphocytes Absolute 2.64 1.00 - 5.00 K/mcL LAB HEMETOLOGY METHOD 12:12 PM [facility] Monocytes Absolute Manual 1.95(H) 0.20 - 1.00 K/mcL LAB HEMETOLOGY METHOD 12:12 PM [facility] Eosinophils Absolute Manual 0.28 0.00 - 0.50 K/mcL LAB HEMETOLOGY METHOD 12:12 PM EDT [facility] Basophils Absolute Manual 0.00 0.00 - 0.20 K/[facility] LAB HEMETOLOGY METHOD 12:12 PM EDT [facility] Metamyelocytes Absolute Manual 0.14(H) 0.00 - 0.00 K/[facility] LAB HEMETOLOGY METHOD 12:12 PM EDT [facility] Myelocytes Absolute Manual 0.14(H) 0.00 - 0.00 K/[facility] LAB HEMETOLOGY METHOD 12:12 PM EDT [facility] Rbc Morphology Consistent with indices Consistent with indices, Normal for [place] LAB HEMETOLOGY METHOD 12:12 PM EDT [facility] Platelet Morphology - WAM See Note(A) Normal LAB HEMETOLOGY METHOD 12:12 PM EDT [facility] Comment:PLT: Large platelets seen Blood Venous blood specimen / Unknown Venipuncture / Unknown 12/02/2024 4:46 AM EDT 12/02/2024 10:34 AM EDT Lukas [facility] BLOOD ORDERABLES Final R esult [facility] [address] [place] [address], * (ABNORMAL) CBC auto differential (12/02/2024 4:46 AM EDT) WBC 13.9(H) 4.8 - 10.8 K/[facility] LAB HEMETOLOGY METHOD 12/02/2024 12:12 PM EDT [facility] RBC 3.90(L) 4.50 - 5.50 M/mcL LAB HEMETOLOGY METHOD 12/02/2024 12:12 PM [facility] Hemoglobin 11.9(L) 13.5 - 17.5 g/dL LAB HEMETOLOGY METHOD 12/02/2024 12:12 PM [facility] Hematocrit 38.9(L) 42.0 - 54.0 % LAB HEMETOLOGY METHOD 12/02/2024 12:12 PM [facility] MCV 99.2(H) 79.0 - 98.0 FL LAB HEMETOLOGY METHOD 12/02/2024 12:12 PM [facility] MCH 30.4 27.0 - 32.0 pcg LAB HEMETOLOGY METHOD 12/02/2024 12:12 PM [facility] MCHC 30.6(L) 32.0 - 37.0 g/dL LAB HEMETOLOGY METHOD 12/02/2024 12:12 PM [facility] RDW 15.2(H) 11.0 - 15.0 % LAB HEMETOLOGY METHOD 12/02/2024 12:12 PM [facility] Platelets 761(H) 130 - 400 K/mcL LAB HEMETOLOGY METHOD 12/02/2024 12:12 PM [facility] MPV 9.9 7.0 - 11.0 FL LAB HEMETOLOGY METHOD 12/02/2024 12:12 PM [facility] NRBC 0.0 <1.0 % LAB HEMETOLOGY METHOD 12/02/2024 12:12 PM [facility] NRBC Absolute 0.00 <0.10 K/mcL LAB HEMETOLOGY METHOD 12/02/2024 12:12 PM [facility] Blood Venous blood specimen / Unknown Venipuncture / Unknown 12/02/2024 4:46 AM EDT 12/02/2024 10:34 AM EDT Lukas [facility] BLOOD ORDERABLES Final R esult [facility] [address] [place] [address], [place] [phone] * Magnesium (12/02/2024 4:46 AM EDT) Pathologist [facility] Magnesium 2.0 1.9 - 2.6 mg/dL LAB CHEMISTRY METHOD 12/02/2024 12:53 PM EDT [facility] Blood Venous blood specimen / Unknown Venipuncture / Unknown 12/02/2024 4:46 AM EDT 12/02/2024 10:34 AM EDT Lukas [facility] BLOOD ORDERABLES Final R esult [facility] [address] [place] [address], [place] [phone] * (ABNORMAL) Comprehensive metabolic panel (12/02/2024 4:46 AM EDT) Pathologist [facility] Sodium 135 133 - 145 mmol/L LAB CHEMISTRY METHOD 12/02/2024 12:53 PM [facility] Potassium 5.0 3.5 - 5.5 mmol/L LAB CHEMISTRY METHOD 12/02/2024 12:53 PM [facility] Chloride 103 96 - 110 mmol/L LAB CHEMISTRY METHOD 12/02/2024 12:53 PM [facility] CO2 20(L) 21 - 32 mmol/L LAB CHEMISTRY METHOD 12/02/2024 12:53 PM [facility] Anion Gap 12(H) 3 - 11 LAB CHEMISTRY METHOD 12/02/2024 12:53 PM [facility] Glucose 67(L) 70 - 100 mg/dL LAB CHEMISTRY METHOD 12/02/2024 12:53 PM [facility] BUN 16 5 - 25 mg/dL LAB CHEMISTRY METHOD 12/02/2024 12:53 PM [facility] Creatinine 1.18 0.70 - 1.30 mg/dL LAB CHEMISTRY METHOD 12/02/2024 12:53 PM [facility] eGFR 68 >=60 mL/min/1. 73m2 LAB CHEMISTRY METHOD 12/02/2024 12:53 PM [facility] Comment:Calculation based on the Chronic Kidney Disease Epidemiology Collaboration (CKD-EPI) equation refit without adjustment for race. BUN/Creatinine Ratio 13.6 LAB CHEMISTRY METHOD 12/02/2024 12:53 PM [facility] Calcium 9.1 8.5 - 10.5 mg/dL LAB CHEMISTRY METHOD 12/02/2024 12:53 PM [facility] AST (SGOT) 26 10 - 42 unit/L LAB CHEMISTRY METHOD 12/02/2024 12:53 PM [facility] ALT (SGPT) 21 10 - 60 unit/L LAB CHEMISTRY METHOD 12/02/2024 12:53 PM [facility] Alkaline Phosphatase 102 42 - 121 unit/L LAB CHEMISTRY METHOD 12/02/2024 12:53 PM [facility] Total Protein 8.1(H) 6.0 - 8.0 g/dL LAB CHEMISTRY METHOD 12/02/2024 12:53 PM [facility] Albumin 2.5(L) 3.2 - 5.0 g/dL LAB CHEMISTRY METHOD 12/02/2024 12:53 PM [facility] Total Bilirubin 0.4 0.0 - 1.4 mg/dL LAB CHEMISTRY METHOD 12/02/2024 12:53 PM [facility] Blood Venous blood specimen / Unknown Venipuncture / Unknown 12/02/2024 4:46 AM EDT 12/02/2024 10:34 AM EDT Lukas [facility] BLOOD ORDERABLES Final R esult [facility] [address] [place] [address], documented in this encounter Visit Diagnoses Diagnosis Encounter for other general examination documented in this encounter Care Teams Photography Colorist Relationship Specialty Start Date End Date Handy Elias MD [address] [place] [address] PCP - General Internal Medicine 01/13/18 documented as of this encounter
--- OUTSIDE RECORDS SUMMARY | 2025-02-16 17:07 | XMS_ITS | Encounter Summary ---
Author Organization [facility] Address [address] [place] [address] Care Team Providers Care Bull Gang Worker Name Role Phone Handy Elias MD Primary Care Provider +1 [phone] Encounter Details Date Type Department Care Team (Late st Contact Info) Description 11/16/2024 Lab Requisition [facility] - Main Lab [address] [facility] [place] [address] Jorge Luis Razo MD [address] [place] [address] Encounter for other general examination [...] mg/dL LAB CHEMISTRY METHOD 11/16/2024 2:05 PM [facility] Blood Venous blood specimen / Unknown Venipuncture / Unknown 11/16/2024 4:57 AM EDT 11/16/2024 10:53 AM EDT Jorge Luis Razo MD LAB BLOOD ORDERABLES Final R esult [facility] [address] [place] [address], [place] [phone] * (ABNORMAL) Basic metabolic panel (11/16/2024 4:57 AM EDT) Pathologist [facility] Sodium 136 133 - 145 mmol/L LAB CHEMISTRY METHOD 11/16/2024 2:17 PM [facility] Potassium 4.8 3.5 - 5.5 mmol/L LAB CHEMISTRY METHOD 11/16/2024 2:17 PM [facility] Chloride 101 96 - 110 mmol/L LAB CHEMISTRY METHOD 11/16/2024 2:17 PM [facility] CO2 22 21 - 32 mmol/L LAB CHEMISTRY METHOD 11/16/2024 2:17 PM [facility] Anion Gap 13(H) 3 - 11 LAB CHEMISTRY METHOD 11/16/2024 2:17 PM [facility] Glucose 80 70 - 100 mg/dL LAB CHEMISTRY METHOD 11/16/2024 2:17 PM [facility] BUN 18 5 - 25 mg/dL LAB CHEMISTRY METHOD 11/16/2024 2:17 PM [facility] Creatinine 1.03 0.70 - 1.30 mg/dL LAB CHEMISTRY METHOD 11/16/2024 2:17 PM EDT [facility] eGFR 80 >=60 mL/min/1. 73m2 LAB CHEMISTRY METHOD 11/16/2024 2:17 PM EDT [facility] Comment:Calculation based on the Chronic Kidney Disease Epidemiology Collaboration (CKD-EPI) equation refit without adjustment for race. BUN/Creatinine Ratio 17.5 LAB CHEMISTRY METHOD 11/16/2024 2:17 PM EDT [facility] Calcium 8.0(L) 8.5 - 10.5 mg/dL LAB CHEMISTRY METHOD 11/16/2024 2:17 PM EDT [facility] Blood Venous blood specimen / Unknown Venipuncture / Unknown 11/16/2024 4:57 AM EDT 11/16/2024 10:53 AM EDT us Jorge Luis Razo MD LAB BLOOD ORDERABLES Final R esult [facility] [address] [place] [address], * (ABNORMAL) Complete blood count (11/16/2024 4:57 AM EDT) WBC 27.6(H) 4.8 - 10.8 K/mcL LAB HEMETOLOGY METHOD 11/16/2024 12:51 PM T [facility] RBC 3.00(L) 4.50 - 5.50 M/mcL LAB HEMETOLOGY METHOD 11/16/2024 12:51 PM EDT [facility] Hemoglobin 9.4(L) 13.5 - 17.5 g/dL LAB HEMETOLOGY METHOD 11/16/2024 12:51 PM T [facility] Hematocrit 31.7(L) 42.0 - 54.0 % LAB HEMETOLOGY METHOD 11/16/2024 12:51 PM EDT [facility] MCV 104.3(H) 79.0 - 98.0 FL LAB HEMETOLOGY METHOD 11/16/2024 12:51 PM EDT [facility] MCH 30.9 27.0 - 32.0 pcg LAB HEMETOLOGY METHOD 11/16/2024 12:51 PM EDT [facility] MCHC 29.7(L) 32.0 - 37.0 g/dL LAB HEMETOLOGY METHOD 11/16/2024 12:51 PM EDT [facility] RDW 15.2(H) 11.0 - 15.0 % LAB HEMETOLOGY METHOD 11/16/2024 12:51 PM EDT [facility] Platelets 773(H) 130 - 400 K/mcL LAB HEMETOLOGY METHOD 11/16/2024 12:51 PM EDT [facility] MPV 11.0 7.0 - 11.0 FL LAB HEMETOLOGY METHOD 11/16/2024 12:51 PM EDT [facility] NRBC 0.1 <1.0 % LAB HEMETOLOGY METHOD 11/16/2024 12:51 PM EDT [facility] NRBC Absolute 0.04 <0.10 K/mcL LAB HEMETOLOGY METHOD 11/16/2024 12:51 PM T [facility] Blood Venous blood specimen / Unknown Venipuncture / Unknown 11/16/2024 4:57 AM EDT 11/16/2024 10:53 AM EDT us Jorge Luis Razo MD LAB BLOOD ORDERABLES Final R esult [facility] [address] [place] [address], documented in this encounter Visit Diagnoses Diagnosis Encounter for other general examination documented in this encounter Care Teams Bull Gang Worker Relationship Specialty Start Date End Date Handy Elias MD [address] [place] [address] PCP - General Internal Medicine 01/13/18 documented as of this encounter
--- OUTSIDE RECORDS SUMMARY | 2025-02-16 17:07 | XMS_ITS | Encounter Summary ---
Author Organization [facility] Address [address] [place] [address] Care Team Providers Care Car Tester Name Role Phone Handy Elias MD Primary Care Provider [phone] Encounter Details Date Type Department Care Team (Late st Contact Info) Description 12/03/2024 Lab Requisition [facility] - Main Lab [address] [facility] [place] [place] [address] Bradley Valdes MD [address] [place] [phone] Encounter for other general examination Social History [...] % LAB HEMETOLOGY METHOD 5 12:15 PM [facility] Lymphocytes % 17.0 % LAB HEMETOLOGY METHOD 5 12:15 PM [facility] Monocytes % 17.0 % LAB HEMETOLOGY METHOD 5 12:15 PM [facility] Eosinophils % 3.0 % LAB HEMETOLOGY METHOD 5 12:15 PM [facility] Basophils % 0.0 % LAB HEMETOLOGY METHOD 5 12:15 PM [facility] Metamyelocytes % 1.0(H) % LAB HEMETOLOGY METHOD 5 12:15 PM [facility] Myelocytes % 2.0(H) % LAB HEMETOLOGY METHOD 5 12:15 PM [facility] Promyelocytes % 1.0(H) % LAB HEMETOLOGY METHOD 5 12:15 PM [facility] Neutrophils Absolute Manual 7.08(H) 1.50 - 7.00 K/mcL LAB HEMETOLOGY METHOD 5 12:15 PM [facility] Lymphocytes Absolute 2.01 1.00 - 5.00 K/mcL LAB HEMETOLOGY METHOD 5 12:15 PM [facility] Monocytes Absolute Manual 2.01(H) 0.20 - 1.00 K/mcL LAB HEMETOLOGY METHOD 5 12:15 PM [facility] Eosinophils Absolute Manual 0.35 0.00 - 0.50 K/mcL LAB HEMETOLOGY METHOD 5 12:15 PM [facility] Basophils Absolute Manual 0.00 0.00 - 0.20 K/[facility] LAB HEMETOLOGY METHOD 5 12:15 PM EDT [facility] Metamyelocytes Absolute Manual 0.12(H) 0.00 - 0.00 K/mcL LAB HEMETOLOGY METHOD 5 12:15 PM EDT [facility] Myelocytes Absolute Manual 0.24(H) 0.00 - 0.00 K/[facility] LAB HEMETOLOGY METHOD 5 12:15 PM EDT [facility] Promyelocytes Absolute Manual 0.12(H) 0.00 - 0.00 K/[facility] LAB HEMETOLOGY METHOD 12:15 PM EDT [facility] Rbc Morphology Consistent with indices Consistent with indices, Normal for [place] LAB HEMETOLOGY METHOD 12:15 PM EDT [facility] Platelet Morphology - WAM See Note(A) Normal LAB HEMETOLOGY METHOD 12:15 PM EDT [facility] Comment:PLT: Large platelets seen Blood Venous blood specimen / Unknown Venipuncture / Unknown 12/03/2024 5:06 AM EDT 12/03/2024 10:15 AM EDT us Bradley Valdes MD LAB BLOOD ORDERABLES Final Resu lt [facility] [address] [place] [address], * (ABNORMAL) CBC auto differential (12/03/2024 5:06 AM EDT) WBC 11.8(H) 4.8 - 10.8 K/mcL LAB HEMETOLOGY METHOD 12/03/2024 12:15 PM EDT [facility] RBC 3.60(L) 4.50 - 5.50 M/mcL LAB HEMETOLOGY METHOD 12/03/2024 12:15 PM EDT [facility] Hemoglobin 10.9(L) 13.5 - 17.5 g/dL LAB HEMETOLOGY METHOD 12/03/2024 12:15 PM [facility] Hematocrit 35.5(L) 42.0 - 54.0 % LAB HEMETOLOGY METHOD 12/03/2024 12:15 PM [facility] MCV 98.9(H) 79.0 - 98.0 FL LAB HEMETOLOGY METHOD 12/03/2024 12:15 PM [facility] MCH 30.4 27.0 - 32.0 pcg LAB HEMETOLOGY METHOD 12/03/2024 12:15 PM [facility] MCHC 30.7(L) 32.0 - 37.0 g/dL LAB HEMETOLOGY METHOD 12/03/2024 12:15 PM [facility] RDW 15.1(H) 11.0 - 15.0 % LAB HEMETOLOGY METHOD 12/03/2024 12:15 PM [facility] Platelets 736(H) 130 - 400 K/mcL LAB HEMETOLOGY METHOD 12/03/2024 12:15 PM [facility] MPV 10.0 7.0 - 11.0 FL LAB HEMETOLOGY METHOD 12/03/2024 12:15 PM [facility] NRBC 0.0 <1.0 % LAB HEMETOLOGY METHOD 12/03/2024 12:15 PM [facility] NRBC Absolute 0.00 <0.10 K/mcL LAB HEMETOLOGY METHOD 12/03/2024 12:15 PM [facility] Blood Venous blood specimen / Unknown Venipuncture / Unknown 12/03/2024 5:06 AM EDT 12/03/2024 10:15 AM EDT us Bradley Valdes MD LAB BLOOD ORDERABLES Final Resu lt [facility] [address] [place] [address], documented in this encounter Visit Diagnoses Diagnosis Encounter for other general examination documented in this encounter Care Teams Car Tester Relationship Specialty Start Date End Date Handy Elias MD [address] [place] [address] PCP - General Internal Medicine 01/13/18 documented as of this encounter
--- OUTSIDE RECORDS SUMMARY | 2025-02-16 17:07 | XMS_ITS | Clinical Summary ---
Author Organization [facility] Address [address] [place] [address] 7 [place] [address] Care Team Providers Care Stripe Matcher Name Role Phone Handy Elias MD Primary Care Provider [phone] Allergies Active Allergy Reactions Criticality Noted Date [...] opioid reversal. 2 each 1 025 Active sildenafil (Viagra) 100 MG tabletIndications :Erectile [...] 1 tablet by mouth Once per day. 025 Active fluvastatin (Lescol) 20 MG capsule Take 1 capsule by mouth at bedtime. 025 Active LORazepam (Ativan) 1 MG tablet Take 1 tablet by mouth if needed at bedtime for anxiety. Active ondansetron ODT (Zofran-ODT) 4 MG disintegrating tablet Take 1 tablet by mouth every 6 (six) hours if needed for vomiting or nausea. 025 Active FLUoxetine (PROzac) 40 MG capsule Take 1 capsule by mouth Once per day. 025 Active ferrous sulfate 325 (65 Fe) MG tablet Take 1 tablet by mouth with breakfast. Active BD Integra Syringe 25G X 1 3 ML miscIndications:V itamin B12 deficiency USE 1 SYRINGE BY INTRAMUSCULAR ROUTE ONCE A MONTH FOR VITMAIN B12 INJECTIONS 12 each 1 025 Active gabapentin (Neurontin) 300 MG capsuleIndication s:Chronic midline low back pain without sciatica Take 1 capsule (300 mg) by mouth 3 times daily. 90 capsule 11 025 2025 Active zolpidem (Ambien) 10 MG tabletIndications :Primary insomnia TAKE 1 TABLET BY MOUTH AT BEDTIME NEEDED FOR SLEEP 30 tablet 025 Active lidocaine (Lidoderm) 5 % patchIndications: Rib pain on left side Apply 1 patch topically Once per day. Remove & discard patch within 12 hours or as directed by MD. 30 patch Active oxyCODONE (Roxicodone) 5 MG immediate release tabletIndications :Chronic pain syndrome Take 1 tablet (5 mg) by mouth every 4 (four) hours if needed for severe pain for up to 28 days. 168 tablet 025 2025 Active omeprazole (PriLOSEC) [address] capsuleIndication s:Nausea Take 2 capsules (40 mg) by mouth Once per day. Do not crush or chew. 30 capsule 11 Active gabapentin (Neurontin) 300 MG capsuleIndication s:Chronic midline low back pain without sciatica Take 1 capsule (300 mg) by mouth 3 times daily. 60 capsule 11 025 2025 Active zolpidem (Ambien) 10 MG tabletIndications :Primary insomnia TAKE 1 TABLET BY MOUTH EVERY DAY AT BEDTIME NEEDED FOR SLEEP 30 tablet 025 2024 Discontinued oxyCODONE (Roxicodone) 5 MG immediate release tabletIndications :Chronic pain syndrome Take 1 tablet (5 mg) by mouth every 4 (four) hours if needed for severe pain for up to 28 days. 168 tablet 025 2024 Discontinued(R eorder (will not trigger notification to Pharmacy)) omeprazole (PriLOSEC) [address] capsule Take 1 capsule by mouth Once per day. Do not crush or chew. 2024 Discontinued(R eorder (will not trigger notification to Pharmacy)) ondansetron (Zofran) 4 MG tabletIndications :Nausea Take [...] 02/21/2018 CKD (chronic kidney disease), stage III ([facility] ) 09/22/2017 Osteoporosis 09/22/2017 Chronic pain syndrome 11/20/2016 Erectile dysfunction 11/24/2012 Sciatica 11/24/2012 Hypercholesterolemia 07/14/2012 Hypertension 07/14/2012 Low back pain 07/14/2012 Obstructive sleep apnea syndrome 01/04/2010 Encounters Date Type Department Care Team Description 02/16/2025 4:00 PM EST Office Visit [facility] [address] [place] [address] Handy Elias MD Nausea (Primary Dx); Gastroesophageal reflux disease without esophagitis; Chronic midline low back pain without sciatica; Pruritus; Other elevated white blood cell (WBC) count; Intertrigo 02/16/2025 Travel 02/16/2025 Telephone [facility] [address] [place] [address] Handy Elias MD Prior Authorization 02/15/2025 Telephone [facility] [address] [place] [address] Handy Elias MD chart prep 02/10/2025 Refill [facility] [address] [place] [address] 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, 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 02/10/2025 Telephone [facility] [address] [place] [address] Handy Elias MD Med Refill 02/09/2025 Results Follow-Up [facility] [address] [place] [address] Handy Elias MD CBC auto differential, Basic Metabolic Panel, XR Lumbar Spine Complete 4+ Views 02/09/2025 Patient Outreach [facility] [address] [place] [address] Handy Eilas MD Pre-visit Planning ([facility] unable to reach [facility] ) 02/09/2025 Travel 02/01/2025 Orders Only [facility] [address] [place] [address] Handy Elias MD Fall, initial encounter (Primary Dx); Rib pain on left side 01/28/2025 Telephone [facility] [address] [place] [address] Handy Elias MD Nurse Triage 01/27/2025 Refill [facility] [address] [place] [address] Handy Elias MD Primary insomnia 01/25/2025 Telephone [facility] [address] [place] [address] Handy Elias MD Call Back Request 01/18/2025 1:15 PM EST Telemedicine [facility] [address] [place] [address] Handy Elias MD Chronic midline low back pain without sciatica (Primary Dx); Recurrent diverticulitis; Colostomy in place ([facility]) (HCC); Nausea 01/18/2025 Travel 01/15/2025 Refill [facility] [address] [place] [address] Laureen Horton, PharmD Vitamin B12 deficiency 01/15/2025 Telephone [facility] [address] [place] [phone] Handy Elias MD FYI 01/14/2025 Refill [facility] [address] [place] [address] Handy Elias MD Chronic pain syndrome (Primary Dx) 01/13/2025 Travel 01/13/2025 Telephone [facility] [address] [place] [address] Handy Elias MD Nurse Triage 01/07/2025 Telephone [facility] [address] [place] [address] Handy Elias MD FYI 01/06/2025 Patient Outreach [facility] [address] [place] [phone] Handy Elias MD Transition Of Care (Tcm) (HDF- Rescheduled.) 01/06/2025 Telephone [facility] [address] [place] [address] Handy Elias MD Hospital Follow-up 01/05/[address] [address] Handy Elias MD FYI 12/28/[address] [address] Handy Elias MD r/s appt 12/25/[address] [address] Handy Elias MD Primary insomnia 12/24/[address] [address] Handy Elias MD verbal order 12/21/[address] [address] Handy Elias MD FYI 12/17/2024 Telephone [facility] [address] [place], [place] [phone] Handy Elias MD Appointment Request 12/17/2024 Patient Outreach [address] [address] Handy Elias MD Transition Of Care (Tcm) (HDF- scheduled (direct)) from Last 3 Months Immunizations Immunization Administration [...] Pulse 83 02/16/2025 4:06 PM EST Temperature 36.8 C (98.2 F) 07/30/2024 4:01 PM EDT Respiratory Rate 20 02/16/2025 4:06 PM EST Oxygen Saturation 98% 02/16/2025 4:06 PM EST Inhaled Oxygen Concentration - - Weight 105 kg (232 lb) 02/16/2025 4:06 PM EST Height 180.3 cm (5' 11 ) 02/16/2025 4:06 PM EST Body Mass Index 32.36 02/16/2025 4:06 PM EST Plan of Treatment Upcoming Encounters Date Type Department Care Team (Late st Contact Info) Description 03/01/2025 1:00 PM EST Telemedicine [facility] [address] [place] [address] Tessa Cox, RN [address] [place] [address] Health Maintenance Due Date Last Done Comments [...] Screening 05/08/2025 05/08/2024, 05/09/19 25 Tobacco Screening 02/16/2026 02/16/2025 Lipid Panel 01/01/2027 01/01/2022, 07/26, 12/09/2020, Additional [...] Name Priority Date/Time Associated Diagnosis Comments XR LUMBAR SPINE COMPLETE 4+ VIEWS Routine 02/09/2025 3:28 PM EST Chronic midline low back pain without sciatica XR RIBS 3 VIEWS LEFT W CHEST Routine 02/09/2025 3:22 PM EST BASIC METABOLIC PANEL Routine 02/09/2025 3:05 PM EST Chronic midline low back pain without sciatica Nausea CBC WITH AUTO DIFFERENTIAL Routine 02/09/2025 3:05 PM EST Chronic midline low back pain without sciatica ZZZ HISTORICAL LIPID PANEL Routine 01/01/2022 11:44 AM EST HM COLONOSCOPY Routine 05/28/2013 from Last 3 Months or Most Recently Relevant to Health Maintenance Results * XR Lumbar Spine Complete 4+ Views (02/09/2025 3:28 PM EST) Anatomical Region Laterality Modality Spine, L-spine Radiographic Ame ging 02/09/2025 3:28 PM EST Narrative 02/10/2025 7:17 AM EST [facility] [address] [place] [address] [place] [address] XRay Report Signed Patient: Henri Espino MR#: [id number] 81 : 1960 Acct:[id number] Age/Sex: 65 / M ADM Date: 02/09/25 Loc: HO.HMGCX Attending Dr: Handy Elias MD Ordering Physician: Handy Elias MD Date of Service: 02/09/25 Procedure(s): XR lumbar spine 4V min Accession Number(s): [id number] cc: Handy Elias MD Reason for Exam: Low back pain after a fall. EXAMINATION: XR LUMBAR SPINE 4 OR MORE VIEWS HISTORY: Low back pain after a fall. COMPARISON: Comparison is made with the prior examination dated 01/09/2010. FINDINGS: AP, lateral, bilateral oblique, and coned down views of the lumbar spine are submitted. Osseous mineralization is normal. Five nonrib-bearing lumbar vertebral bodies are identified, maintaining normal height without evidence of fracture. There is slight spondylolisthesis of L4 on L5. There is mild to moderate degenerative disc disease with disc space narrowing and osteophyte formation. There is osteoarthritis of the facet joints. No definite spondylolysis. There is calcification of the abdominal aorta. XR/XR lumbar spine 4V min IMPRESSION: Mild to moderate degenerative disc disease. Slight spondylolisthesis of L4 on L5. Electronically signed by: Brian Yost MD 02/10/2025 07:14 AM EST Dictated By: Brian Yost MD Signed By: <Electronically signed by Brian Yost MD in OV> 02/10/25 0714 DD/ 1528 TD/TT: 02/09/25 1533 Adjunct Professor Of Law: Procedure Note Donotuseinterpreter, Image - 02/10/2025 [facility] Primary Care [address] [place] [address] XRay Report Signed Patient: Henri Espino FMR#: [id number] [birth year] : 8Acct:[id number] Age/Sex: 65 / MADM Date: 02/09/25 Loc: HO.HMGCX Attending Dr: Handy Elias MD Ordering Physician: Handy Elias MD Date of Service: 02/09/25 Procedure(s): XR lumbar spine 4V min Accession Number(s): [id number] cc: Handy Elias MD Reason for Exam: Low back pain after a fall. EXAMINATION: XR LUMBAR SPINE 4 OR MORE VIEWS HISTORY: Low back pain after a fall. COMPARISON: Comparison is made with the prior examination dated 01/09/2010. FINDINGS: AP, lateral, bilateral oblique, and coned down views of the lumbar spine are submitted. Osseous mineralization is normal. Five nonrib-bearing lumbar vertebral bodies are identified, maintaining normal height without evidence of fracture. There is slight spondylolisthesis of L4 on L5. There is mild to moderate degenerative disc disease with disc space narrowing and osteophyte formation. There is osteoarthritis of the facet joints. No definite spondylolysis. There is calcification of the abdominal aorta. XR/XR lumbar spine 4V min IMPRESSION: Mild to moderate degenerative disc disease. Slight spondylolisthesis of L4 on L5. Electronically signed by: Brian Yost MD 02/10/2025 07:14 AM EST Dictated By: Brian Yost MD Signed By: <Electronically signed by Brian Yost MD in OV> 02/10/25 0714 DD/ 1528 TD/TT: 02/09/25 1533 Adjunct Professor Of Law: us Handy Elias MD IMG XR PROCEDURES Final Res ult * XR Ribs 3 Views Left w/ Chest (02/09/2025 3:22 PM EST) Anatomical Region Laterality Modality Radiographic Ame ging 02/09/2025 3:22 PM EST Narrative 02/10/2025 7:14 AM EST [facility] Care [address] [place] [address] [place] [address] XRay Report Signed Patient: Henri Espino MR#: [id number] [birth year] : 1960 Acct:[id number] Age/Sex: 65 / M ADM Date: 02/09/25 Loc: HO.HMGCX Attending Dr: Handy Elias MD Ordering Physician: Handy Elias MD Date of Service: 02/09/25 Procedure(s): XR ribs LT min 3V w CXR1V Accession Number(s): [id number] cc: Handy Elias MD Reason for Exam: [...] 02/10/25 0711 DD/ 1522 TD/TT: 02/09/25 1533 Adjunct Professor Of Law: Procedure Note Donotuseinterpreter, Image - 02/10/2025 [facility] Primary Care [address] [place] [address] XRay Report Signed Patient: Henri Espino FMR#: [id number] [birth year] : 8Acct:[id number] Age/Sex: 65 / MADM Date: 02/09/25 Loc: HO.HMGCX Attending Dr: Handy Elias MD Ordering Physician: Handy Elias MD Date of Service: 02/09/25 Procedure(s): XR ribs LT min 3V w CXR1V Accession Number(s): [id number] cc: Handy Elias MD Reason for Exam: [...] 02/10/25 0711 DD/ 1522 TD/TT: 02/09/25 1533 Adjunct Professor Of Law: Handy Elias MD IMG XR PROCEDURES Final Res ult * (ABNORMAL) CBC auto differential (02/09/2025 3:05 PM EST) White Blood Count 12.6(H) 4.8 - 10.8 X10*3/uL [facility] Red Blood Count 5.01 4.60 - 5.80 X10*6/uL [facility] Hemoglobin 14.3 14.0 - 18.0 g/dl [facility] Hematocrit 45.7 42.0 - 52.0 % [facility] Mean Corpuscular Volume 91.2 80.0 - 98.0 fL [facility] Mean Corpuscular Hemoglobin 28.5 27.0 - 33.0 pg [facility] Mean Corpuscular HGB Conc 31.3 31.0 - 36.0 g/dl [facility] Red Cell Distribution Width 16.9(H) 11.0 - 16.0 % [facility] Platelet Count 656(H) 160 - 400 X10*3/uL [facility] Mean Platelet Volume 10.1 9.4 - 12.4 fL [facility] Neutrophils Percent Auto 50.5 45 - 73 % [facility] Imm Gran Pct Auto 0.7(H) 0.0 - 0.4 % [facility] Lymphocytes Percent Auto 33.0 20 - 40 % [facility] Monocytes Percent Auto 11.3(H) 2 - 11 % [facility] Eosinophils Percent Auto 3.9 0 - 4 % [facility] Basophils Percent Auto 0.6 0 - 2 % [facility] NRBC Pct Auto 0.0 0.0 - 0.2 /100WBC [facility] Neutrophils Absolute Auto 6.3 2.0 - 8.3 x10*3/uL [facility] Imm Gran Abs Auto 0.09(H) 0.00 - 0.03 X10*3/uL [facility] Lymphocytes Absolute Auto 4.2 1.2 - 4.9 X10*3/uL [facility] Monocytes Absolute Auto 1.4(H) 0.1 - 1.2 X10*3/uL [facility] Eosinophils Absolute Auto 0.5(H) 0.0 - 0.4 X10*3/uL [facility] Basophils Absolute Auto 0.1 0.0 - 0.2 X10*3/uL [facility] NRBC Abs Auto 0.000 0.0 - 0.012 X10*3/uL [facility] Blood Venous blood specimen / Unknown 02/09/2025 3:05 PM EST 02/09/2025 4:09 PM EST us Handy Elias MD LAB BLOOD ORDERABLES Final Result [facility] [address] [place] [address] [phone] * (ABNORMAL) Basic Metabolic Panel (02/09/2025 3:05 PM EST) Sodium 140 135 - 145 mmol/L [facility] Potassium 4.9 3.3 - 5.1 mmol/L [facility] Chloride 103 96 - 108 mmol/L [facility] Carbon Dioxide 25 22 - 29 mmol/L [facility] Anion Gap 17 12 - 20 [facility] Urea Nitrogen (BUN) 18(H) 9 - 16 mg/dL [facility] Creatinine, Serum 1.29 0.5 - 1.4 mg/dL [facility] Estimated Glomerular Filt Rate 56 [facility] Comment:Chronic Kidney Disea se: Estimated GFR < 60 mL/min/1.73v8Kienkv Kidney Disease: Estimated GFR < 15 mL/min/1.73m2 Glucose 87 60 - 115 mg/dL [facility] Calcium 10.3(H) 8.4 - 10.2 mg/dL [facility] Blood Venous blood specimen / Unknown 02/09/2025 3:05 PM EST 02/09/2025 4:11 PM EST us Handy Elias MD LAB BLOOD ORDERABLES Final Result [facility] [address] [place] [phone] * LIPID PANEL (01/01/2022 11:44 AM [...] Recently Relevant to Health Maintenance Insurance MEDICARE [facility] MEDEX MEDICARE SUPPLEMENT Care Teams Stripe Matcher Relationship Specialty Start Date End Date Handy Elias MD [address] [place] [phone] PCP - General Internal Medicine 11/17/12 [facility] 12/19/24
--- OUTSIDE RECORDS SUMMARY | 2025-02-16 17:07 | XMS_ITS | Encounter Summary ---
Author Organization [facility] Address [address] [facility] 7 [place] [address] Care Team Providers Care Group Work Program Director Name Role Phone Handy Elias MD Primary Care Provider [phone] Encounter Details Date Type Department Care Team ([facility] st Contact Info) Description 11/15/2023 Orders Only [facility] [address] [place], [place] [phone] Handy Elias MD [address] [place], [place] [phone] Social History Tobacco Use Types Packs/Day Years [...] Description 03/01/2025 1:00 PM EST [facility]medicine [facility] [address] [place] [address] Tessa Cox, MARITA [address] [place] [address] documented as of this encounter Visit Diagnoses Not on filedocumented in this encounter Care Teams Group Work Program Director Relationship Specialty Start Date End Date Handy Elias MD [address] [place] [address] PCP - General Internal Medicine 11/17/12 [facility] 12/19/24 documented as of this encounter
[2025-02-16 18:29] LABS: MANUAL DIFF FLAG NO
[2025-02-16 18:36] LABS: Hematocrit 42.5 % (42.0-52.0); Hemoglobin 13.7 g/dl (14.0-18.0); Imm Gran Abs Auto 0.07 X10*3/uL (0.00-0.03); Imm Gran Pct Auto 0.5 % (0.0-0.4); Lymphocytes Absolute Auto 4.1 X10*3/uL (1.2-4.9); Mean Corpuscular HGB Conc 32.2 g/dl (31.0-36.0); Mean Corpuscular Hemoglobin 28.9 pg (27.0-33.0); Mean Corpuscular Volume 89.7 fL (80.0-98.0); NRBC Abs Auto 0.000 X10*3/uL (0.0-0.012); NRBC Pct Auto 0.0 /100WBC (0.0-0.2); Platelet Count 600 X10*3/uL (160-400); Red Blood Count 4.74 X10*6/uL (4.60-5.80); White Blood Count 12.8 X10*3/uL (4.8-10.8)
== END 2025-02-16 16:29 | disposition home or self-care (01) ==
LOC: HO.CHCLDS 16:28
PROVIDERS: Visit Provider Internal Medicine
DX: D72.828 Other elevated white blood cell count (principal)
CPT/HCPCS: 36415; 85025